=== PATIENT | female | born 1950 | race Caucasian/White ===

== ENCOUNTER 2017-04-08 11:23 | Inpatient (IN) | payer MEDICARE, OTHER ==
[2017-04-08] VITALS (7 sets, daily range): BP systolic 100–103; BP diastolic 54–86; PULSE 121–126; RESP 18–27; TEMP 102.1; Ht 167.6 cm; Wt 75.0 kg
[~2017-04-08] VITALS: Ht 167.6 cm; Wt 75.0 kg
--- NOTE | 2017-04-08 11:56 | ERA ---
ER Documentation Chief Complaint Date/Time DATE: 04/08/17 TIME: 11:53 Chief Complaint MARNIE FROM [facility] C/O BLEEDING FOR TRACHEOSTOMY & RECTAL BLEED. HPI Patient is a 66-year-old female with end-stage renal disease, CHF, chronic respiratory failure on a ventilator with a tracheostomy, anal cancer who is sent from a alf facility with rectal bleeding as well as blood from her tracheostomy site for 1 day. The patient can communicate by shaking her head yes or no, and indicates that she is not currently experiencing any pain, shortness of breath, dizziness or weakness. ROS All systems reviewed and are negative except as per history of present illness. Medications Home Meds Reported Medications Balsam Frazer/[place] Oil (Venelex Ointment) 60 Gm Oint..gm., 1 APPLIC TOP NEEDED, #1 TUB APPLY TO SACROCOCCYX 04/08/17 Ascorbic Acid* (Ascorbic Acid*) 500 Mg/5 Ml Syrup, 500 MG GTB DAILY, #150 ML 04/08/17 Trazodone Hcl* (Trazodone Hcl*) 50 Mg Tablet, 25 MG PO QHS, #30 TAB 04/08/17 Sorbitol* (Sorbitol*) 473 Ml Soln, 30 ML PO DAILY Y for CONSTIPATION, ML 04/08/17 Sodium Chloride* (Sodium Chloride*) 1 Gm Tablet, 1 GM GTB BID, TAB 04/08/17 Simethicone (GAS RELIEF) 80 Mg Tab.chew, 80 MG GTB Q4, TAB.CHEW 04/08/17 Sennosides* (Senna Lax*) 8.6 Mg Tablet, 2 TAB PO BID, TAB 04/08/17 Multivit/Ca Carb/B Cmplx/Fa* (Shayla-Anuradha*) 1 Tab Tab, 1 TAB GTB DAILY, TAB 04/08/17 Quetiapine Fumarate* (Seroquel*) 25 Mg Tablet, 25 MG GTB BID, #60 TAB 04/08/17 Insulin Regular, Human (Humulin R) 100 Unit/1 Ml Vial, 0 IJ Q6, VIAL SLIDING SCALE 71-150 =0 UNITS 151-200 = 2 UNITS 201-250 = 4 UNITS 251 -300 = 6 UNITS 301-350 = 8 UNITS 351-400 = 10 UNITS OVER 400 UNITS GIVE 12 UNITS AND CALL 04/08/17 Lactulose* (Lactulose*) 20 Gm/30 Ml Solution, 20 GM GTB DAILY, ML 04/08/17 Lansoprazole* (Lansoprazole*) 30 Mg Capsule.dr, 30 MG GTB DAILY, CAP 04/08/17 Insulin Detemir (Levemir) 100 Unit/1 Ml Vial, 5 UNIT SC BID, VIAL 04/08/17 Levothyroxine Sodium* (Levoxyl*) 125 Mcg Tablet, 125 MCG GTB BEFORE BREAKFAST, # 30 TAB 04/08/17 Lisinopril* (Lisinopril*) 2.5 Mg Tablet, 2.5 MG GTB BID, #30 TAB 04/08/17 Loratadine* (Loratadine*) 10 Mg Tablet, 10 MG GTB DAILY, #30 TAB 04/08/17 Metoclopramide* (Reglan*) 10 Mg/10 Ml Soln, 5 MG GTB Q8, ML 04/08/17 Metoprolol Tartrate* (Lopressor*) 25 Mg Tab, 25 MG GTB BID, #60 TAB 04/08/17 Hydrocodone/Acetaminophen ([place] 5-325 Tablet) 1 Each Tablet, 1 EACH PEG WOUND CARE, TAB MAY GIVE ONE TABLET PRIOR TO WOUND CARE 04/08/17 Hydrocodone/Acetaminophen ([place] 5-325 Tablet) 1 Each Tablet, 1 EACH GTB Q6 Y for SEVERE PAIN LEVEL 7-10, TAB 04/08/17 Protein Supplement (Promod) 946 Ml Liquid, 30 ML GTB BID 04/08/17 Furosemide* (Furosemide*) 40 Mg Tablet, 40 MG GTB DAILY, TAB 04/08/17 Ipratropium-Albuterol (Ipratropium-Albuterol) 0.5-3 Mg/3 Ml Ampul.neb, 3 ML INHALATION Q2H Y for SHORTNESS OF BREATH, #30 VIAL VIA TRACH 04/08/17 Ipratropium-Albuterol (Ipratropium-Albuterol) 0.5-3 Mg/3 Ml Ampul.neb, 3 ML IH QID Y for WHEEZING AND SOB, #30 VIAL VIA TRACH 04/08/17 Vit E Acetate/Dmc/Znox/Pet,Wh (Critic-Aid Clear Ointment) 71 Gm Oint..gm., 71 GM TP Q8 6/23/17 Calcium Carbonate/Vitamin D3 (OYSTER SHELL 500 MG + VIT D TB) 1 Each Tablet, 1 EACH GTB DAILY, TAB 04/08/17 Atorvastatin Calcium* (Atorvastatin Calcium*) 20 Mg Tablet, 20 MG GTB QHS, #30 TAB 04/08/17 Allergies Allergies: Coded Allergies: Penicillins (Verified Allergy, Unknown, 04/08/17) Sulfa (Sulfonamide Antibiotics) (Verified Allergy, Unknown, 04/08/17) PMhx/Soc Past medical history: Cardiopulmonary arrest, CHF, chronic kidney disease, anal cancer, chronic respiratory failure Past surgical history: Tracheostomy, gastrostomy tube Social history: Lives in alf facility. FmHx Family History: No coronary disease, No diabetes Physical Exam Vitals Vital Signs Date Time Temp Pulse Resp B/P Pulse Ox O2 Delivery O2 Flow Rate FiO2 04/08/17 17:47 101.0 78 19 114/56 100 Mechanical Ventilator 04/08/17 16:46 113 19 100 50 04/08/17 14:51 110 18 100 50 04/08/17 14:45 101.5 64 26 109/62 Mechanical Ventilator 04/08/17 13:07 50 04/08/17 11:40 120 23 100 100 04/08/17 11:39 102.5 120 26 142/78 100 Physical Exam Const: Alert, responds by shaking head to questions, no acute distress Head: Atraumatic Eyes: Normal Conjunctiva, mild pallor, no icterus ENT: Normal External Ears, Nose and Mouth. Moist mucous membranes Neck: Full range of motion..~ No meningismus. Resp: Clear to auscultation bilaterally Cardio: Regular rate and rhythm, no murmurs Abd: Distended, firm, subcutaneous edema to the chest wall Skin: No petechiae or rashes, stage II decubitus ulcer on sacrum without erythema or discharge Ext: No cyanosis, anasarca from the feet to the chest wall. Neur: Awake and alert, not moving any extremities Psych: Unable to assess due to patient's condition Result Diagram: 04/08/17 1230 04/08/17 1230 Results 24 hrs Laboratory Tests Test 04/08/17 11:54 04/08/17 12:30 04/08/17 15:25 04/08/17 17:40 Blood Gas Specimen Source Blood arterial Arterial Blood Date Drawn 04/08/2017 12:42:29 PM Arterial Blood pH (Temp corrected) 7.431 Arterial Blood pCO2 (Temp correct) 33.4mmhg Arterial Blood pO2 (Temp corrected) 429.2mmHG Arterial Blood HCO3 21.7mmol/L Arterial Blood Base Excess -2.0mmol/L Arterial Blood Oxygen Saturation 99.5mmHG Mario Test N/A Arterial Blood Gas Puncture Site LB Arterial Blood Carboxyhemoglobin 0.3% Arterial Blood Methemoglobin 0.5% Blood Gas A-a O2 Differential 250.4mmHg Oxyhemoglobin Percent 98.7% Total Hemoglobin 10.3g/dl Blood Gas Temperature 37.0C Blood Gas Respiration Rate 14.0 Blood Gas Actual Respiration Rate 33 Blood Gas Modality VENT - AC FiO2 100.0% Blood Gas Tidal Volume 500.0mL Blood Gas Low PEEP Setting 5.0cmH2O Blood Gas Notified Whom Jose Blood Gas Notified Time 04/08/2017 12:53:48 PM White Blood Count 20.810^3/ul Red Blood Count 3.1810^6/ul Hemoglobin 9.7g/dl Hematocrit 30.6% Mean Corpuscular Volume 96.2fl Mean Corpuscular Hemoglobin 30.5pg Mean Corpuscular Hemoglobin Concent 31.7g/dl Red Cell Distribution Width 21.1% Platelet Count 31837^3/UL Mean Platelet Volume 10.1fl Neutrophils % 96.0% Lymphocytes % 1.6% Monocytes % 1.6% Eosinophils % 0.0% Basophils % 0.1% Nucleated Red Blood Cells % 0.0/100WBC Neutrophils # 19.910^3/ul Lymphocytes # 0.310^3/ul Monocytes # 0.310^3/ul Eosinophils # 0.010^3/ul Basophils # 0.010^3/ul Nucleated Red Blood Cells # 0.010^3/ul Prothrombin Time 14.2Sec 15.2Sec Prothrombin Time Ratio 1.1 1.2 INR International Normalized Ratio 1.10 1.19 Activated Partial Thromboplast Time 44.6Sec 46.2Sec Sodium Level 134mmol/L Potassium Level 4.1mmol/L Chloride Level 100mmol/L Carbon Dioxide Level 24mmol/L Anion Gap 14 Blood Urea Nitrogen 43mg/dl Creatinine 2.13mg/dl Glucose Level 236mg/dl Calcium Level 8.2mg/dl Total Bilirubin 0.1mg/dl Direct Bilirubin 0.00mg/dl Indirect Bilirubin 0.1mg/dl Aspartate Amino Transf (AST/SGOT) 40IU/L Alanine Aminotransferase (ALT/SGPT) 37IU/L Alkaline Phosphatase 223IU/L Troponin I < 0.012ng/ml B-Type Natriuretic Peptide 08226YJ/ML Total Protein 7.2g/dl Albumin 3.3g/dl Globulin 3.90g/dl Albumin/Globulin Ratio 0.84 Lactic Acid Level 2.3mmol/L Bedside Urine pH (LAB) 5.0 Bedside Urine Protein (LAB) 2+ Bedside Urine Glucose (UA) Negative Bedside Urine Ketones (LAB) Negative Bedside Urine Blood 1+ Bedside Urine Nitrite (LAB) Negative Bedside Urine Leukocyte Esterase (L 2+ Current Medications Medications (Trade) Dose Ordered Sig/Summer Route PRN Reason Start Time Stop Time Status Last Admin Dose Admin Cefepime HCl 50 ml @ 100 mls/hr ONCE STAT IVPB 04/08/17 13:33 04/08/17 14:02 DC 04/08/17 17:09 Vancomycin HCl (Vancocin) 250 ml @ 125 mls/hr ONCE ONCE IVPB 04/08/17 14:00 04/08/17 15:59 DC Lidocaine (Xylocaine 1% (Mpf)) 5 ml ONCE ONCE SC 04/08/17 14:30 04/08/17 14:31 DC Ondansetron HCl (Zofran Inj) 4 mg ER BRIDGE PRN IV NAUSEA AND/OR VOMITING 04/08/17 16:30 04/09/17 16:29 Acetaminophen (Tylenol Tab) 650 mg ER BRIDGE PRN PO MILD PAIN/FEVER 04/08/17 16:30 04/09/17 16:29 04/08/17 17:09 Acetaminophen (Tylenol Liquid) 650 mg STK-MED ONCE .ROUTE 04/08/17 17:01 04/08/17 17:02 DC Procedures/MDM EKG read by me: Time 1238, rate 124 Rhythm: Sinus tachycardia Gaines: Normal Intervals: Normal ST-T waves: T-wave inversion in lateral leads Ectopy: No Q-waves: No Impression: Sinus tachycardia with T-wave inversion MDM: Patient is a 66-year-old female who is chronically vent dependent with tracheostomy and has end-stage renal disease. She has history of anal cancer, status post radiation therapy and presents to the ER with rectal bleeding. She has had previous episodes that are presumed to be related to neovascularization from radiation proctitis. There is no active bleeding in the ER. The patient has no hypotension. In the ER she is found to be febrile to 102.5. There is no evidence of infiltrate on chest x-ray, no meningeal signs, no evidence of soft tissue infection. She makes minimal urine, but has evidence of leukocytes in the urine. CT scan of the abdomen was performed and does not show significant pathology, but does show small ascites. She may require inpatient paracentesis to exclude SBP. Type and screen was sent in case of further drop in the patient's hemoglobin. Blood and urine cultures were sent. Broad- spectrum antibiotics were administered. Fluids were withheld due to evidence of significant volume overload and CHF. Platelets and INR did not require correction. The patient will require GI consultation, further infectious workup , and further dialysis due to signs of volume overload. She will be admitted to telemetry by Dr. Guerrero. Departure Diagnosis: Primary Impression: Sepsis Qualified Code: A41.9 - Sepsis, due to unspecified organism Additional Impressions: UTI (urinary tract infection) Qualified Code: N39.0 - Urinary tract infection without hematuria, site unspecified Anasarca End stage renal disease Rectal bleeding CHF (congestive heart failure) Qualified Code: I50.9 - Chronic congestive heart failure, unspecified congestive heart failure type Condition: SHERRON Méndez MD Apr 08, 2017 11:55
--- NOTE | 2017-04-08 12:40 | RADRPT ---
PROCEDURE: XR Chest. CLINICAL INDICATION: Shortness of breath. TECHNIQUE: Single frontal view. COMPARISON: 03/29/2017. FINDINGS: The tracheostomy tube is in satisfactory position. There is a right internal jugular vein tunneled dialysis catheter with the tip in the upper right atrium in satisfactory position. There are sterna l wires. The heart is enlarged. There is calcification in the aorta consistent with atherosclerosis. Pulmon china edema is worse than seen previously. Left arm PICC line has been removed. There are small bilateral pleural effusions. There is no pneumothorax. IMPRESSION: 1. New dialysis catheter in satisfactory position. 2. Worsening pulmonary edema. 3. Left arm PICC line removed. RPTAT: QQ .Oli Kapoor MD, MD Date Time Electronically viewed and signed by .Oli Kapoor MD, MD on 04/08/2017 12:40 .R/
[2017-04-08 12:43] LABS: ADD SCAN DIFF NO
[2017-04-08] MEDS ORDERED: ATOR20TA38 GTB (12:51)
[2017-04-08 12:52] LABS: ABNORMAL IP MESSAGE 1; BASOPHILS % 0.1 % (0.0-2.0); HEMATOCRIT 30.6 % (37.0-47.0); HEMOGLOBIN 9.7 g/dl (12.0-16.0); LYMPHOCYTES # 0.3 10^3/ul (0.8-2.9); LYMPHOCYTES % 1.6 % (15.0-51.0); MEAN CORPUSCULAR HEMOGLOBIN 30.5 pg (29.0-33.0); MEAN CORPUSCULAR HGB CONC 31.7 g/dl (32.0-37.0); MEAN CORPUSCULAR VOLUME 96.2 fl (82.0-101.0); MEAN PLATELET VOLUME 10.1 fl (7.4-10.4); MONOCYTE # 0.3 10^3/ul (0.3-0.9); MONOCYTES % 1.6 % (0.0-11.0); NEUTROPHIL # 19.9 10^3/ul (1.6-7.5); PLATELET COUNT 131 10^3/UL (140-415); RED BLOOD COUNT 3.18 10^6/ul (4.20-5.40); RED CELL DISTRIBUTION WIDTH 21.1 % (11.5-14.5); WHITE BLOOD COUNT 20.8 10^3/ul (4.8-10.8)
[2017-04-08] MEDS ORDERED: CALC-277 GTB (12:53)
[2017-04-08 12:54] LABS: AADO2 Arterial 250.4 mmHg (7.0-24.0); Arterial COHb 0.3 % (0.0-3.0); Arterial Fraction of Oxyhgb 98.7 % (93.0-99.0); Arterial HCO3 21.7 mmol/L (22.0-26.0); Arterial MetHb 0.5 % (0.0-1.5); Arterial Total Hemglobin 10.3 g/dl (12.0-18.0); MODE VENT - AC
[2017-04-08] MEDS ORDERED: [UNRECOGNIZED DRUG - CODE] TP (12:56)
[2017-04-08] MEDS ORDERED: IPRA3AMP IH (12:59)
[2017-04-08] MEDS ORDERED: FURO40TA4 GTB (13:00)
[2017-04-08] MEDS ORDERED: IPRA3AMP INHALATION (13:00)
[2017-04-08] MEDS ORDERED: PROT946L GTB (13:01)
[2017-04-08] MEDS ORDERED: HYDR-906 GTB (13:02)
[2017-04-08] MEDS ORDERED: HYDR-906 PEG (13:04)
[2017-04-08] MEDS ORDERED: METO-448 GTB (13:04)
[2017-04-08] MEDS ORDERED: UDREG GTB (13:05)
[2017-04-08] MEDS ORDERED: LISI2.5T59 GTB (13:06)
[2017-04-08] MEDS ORDERED: LORA10TA3 GTB (13:06)
[2017-04-08] MEDS ORDERED: LEVEM SC (13:07)
[2017-04-08] MEDS ORDERED: LEVO125T71 GTB (13:07)
[2017-04-08 13:08] LABS: INR 1.1; PROTIME 14.2 Sec (12.2-14.2); PT RATIO 1.1
[2017-04-08] MEDS ORDERED: LANS30CA GTB (13:08)
[2017-04-08 13:09] LABS: PARTIAL THROMBOPLASTIN TIME 44.6 Sec (25.0-35.0)
[2017-04-08] MEDS ORDERED: LACT20SO2 GTB (13:09)
[2017-04-08 13:12] LABS: ALANINE AMINOTRANSFERASE 37 IU/L (13-69); ALBUMIN 3.3 g/dl (3.3-4.9); ALBUMIN/GLOBULIN RATIO 0.84; ALKALINE PHOSPHATASE 223 IU/L (42-121); ANION GAP 14 (8-16); ASPARTATE AMINO TRANSFERASE 40 IU/L (15-46); BILIRUBIN,INDIRECT 0.1 mg/dl (0-1.1); BILIRUBIN,TOTAL 0.1 mg/dl (0.2-1.3); BLOOD UREA NITROGEN 43 mg/dl (7-20); CALCIUM 8.2 mg/dl (8.4-10.2); CARBON DIOXIDE 24 mmol/L (21-31); CHLORIDE 100 mmol/L (97-110); CREATININE 2.13 mg/dl (0.44-1.00); GLUCOSE 236 mg/dl (70-220); POTASSIUM 4.1 mmol/L (3.5-5.1); SODIUM 134 mmol/L (135-144); TOTAL PROTEIN 7.2 g/dl (6.1-8.1)
[2017-04-08] MEDS ORDERED: INSU100V3 IJ (13:12)
[2017-04-08] MEDS ORDERED: QUET25TA26 GTB (13:13)
[2017-04-08] MEDS ORDERED: NEPH GTB (13:27)
[2017-04-08] MEDS ORDERED: SIME80TA53 GTB (13:28)
[2017-04-08] MEDS ORDERED: SENN-53 PO (13:28)
[2017-04-08] MEDS ORDERED: SODI1TAB2 GTB (13:30)
[2017-04-08] MEDS ORDERED: [UNRECOGNIZED DRUG - OTHER] PO (13:31)
[2017-04-08] MEDS ORDERED: TRAZ50TA18 PO (13:32)
[2017-04-08] MEDS ORDERED: ASCO500S2 GTB (13:32)
[2017-04-08] MEDS ORDERED: CEFEPIME 2GM/50 ML (PMX) 50 ML IVPB STA (13:33)
[2017-04-08] MEDS ORDERED: BALS60OI TOP (13:34)
[2017-04-08 13:50] LABS: TROPONIN-I < 0.012 ng/ml (0.00-0.12)
[2017-04-08 13:51] LABS: B-TYPE NATRIURETIC PEPTIDE 54200 PG/ML (0-125)
[2017-04-08] MEDS ORDERED: VANCOMYCIN 1 GM (PMX) 250 ML IVPB ONE (14:00)
[2017-04-08] MEDS ORDERED: LIDOCAINE 1% (MPF) 5 ML VIAL SC ONE (14:30)
--- NOTE | 2017-04-08 14:38 | RADRPT ---
PROCEDURE: CT Abdomen and Pelvis without contrast. CLINICAL INDICATION: Abdominal distension. Rectal cancer. TECHNIQUE: CT scan of the abdomen and pelvis without contrast was performed on a multi-slice CT sc [facility] without intravenous contrast. Coronal and sagittal reformatted images were obtained from the axial source images. Images were reviewed on a high-resolution PACS workstation. One or more of the following does reduction techniques were used: Automated exposure control; adjustment of the mA an d/or kV according to patient size; use of the aorta of reconstruction technique. The total exam CTD I equals 21.76 mGy and the total exam DLP equals 1256.8 mGy-cm. COMPARISON: None available. FINDINGS: There are moderate bilateral pleural effusions with adjacent atelectasis. Heart size is within ameya l limits. Severe coronary artery calcifications are present. A gastrostomy tube is in place. There are questionable splenic granulomata which may be related to extensive small vessel calcificat ion. The liver, spleen, and pancreas are otherwise normal given the limitations of a noncontrast CT examination with significant motion artifact. The gallbladder is mildly distended. The adrenal glands are normal. The kidneys without renal calculus or hydronephrosis. Extensive int rarenal atherosclerotic calcification somewhat limit evaluation for small calcification The aorta is of normal caliber. Atherosclerotic calcifications are present There is no retroperiton eal lymph node enlargment. There is no evidence of large or small bowel obstruction there is mild retained colonic stool. Ther e are scattered colonic diverticula. There is no definitive evidence of diverticulitis.. There is mild abdominal ascites. A normal appendix is not clearly identified, however, there is no secondar y evidence of acute appendicitis. No inflammatory changes are seen. The uterus is present No enlarged pelvic sidewall lymph nodes are seen. The bladder is decompressed and collapsed. There is small to moderate pelvic free fluid. The inguinal regions are unremarkabl e. There is extensive and severe increased soft tissue density in the subcutaneous fat consistent with severe subcutaneous edema / anasarca. The patient is status post posterior laminectomy and interbody fusion at L5-S1. Hardware appears intact there are potential destructive changes of the L4-5 disk space which may be chronic, however there is also apparent posterior retropulsion of artificial inte rbody disk. The remainder of the bones are intact. IMPRESSION: 1. Moderate bilateral pleural effusions, mild abdominopelvic ascites, and anasarca are suggestive o f fluid overload. 2. Atherosclerotic vascular disease including severe small vessel/coronary artery calcifications. 3. Diverticulosis without definitive evidence of diverticulitis. 4. Status post posterior laminectomy and interbody fusion at L4-L5. There is irregularity and pote ntial destructive change at the L4-5 disk space with apparent posterior retropulsion of portion of a rtificial disk. Findings are concerning for hardware failure or malfunction. RPTAT: KK .Diego Garcia MD, MD Date Time Electronically viewed and signed by .Diego Garcia MD, MD on 04/08/2017 14:38 .B/
[2017-04-08 16:18] LABS: INR 1.19; PROTIME 15.2 Sec (12.2-14.2); PT RATIO 1.2
[2017-04-08 16:19] LABS: PARTIAL THROMBOPLASTIN TIME 46.2 Sec (25.0-35.0)
[2017-04-08] MEDS ORDERED: ONDANSETRON 4 MG INJ IV PRN (16:30)
[2017-04-08] MEDS ORDERED: ACETAMINOPHEN 325 MG TAB PO PRN ×2 (16:30→19:30)
[2017-04-08] MEDS ORDERED: ACETAMINOPHEN 650MG/20.3ML CUP ONE (17:01)
[2017-04-08 17:37] LABS: URINE BLOOD (Dip) POC 1+ (NEGATIVE)
[2017-04-08] MEDS ORDERED: ALBUTEROL/IPRATROPIUM (NEB) 3 ML AMP NEB PRN ×2 (19:30)
[2017-04-08] MEDS ORDERED: VANCOMYCIN IV PER PHARMACY XX SCH (19:30)
[2017-04-08] MEDS ORDERED: GLUCOSE GEL 15 GRAM TUBE PO PRN ×2 (20:00)
[2017-04-08] MEDS ORDERED: DEXTROSE 50% 50 ML SYRINGE IV PRN (20:00)
[2017-04-08] MEDS ORDERED: GLUCOSE GEL 15 GRAM TUBE BUCCAL PRN (20:00)
[2017-04-08] MEDS ORDERED: GLUCAGON 1 MG INJ IM PRN (20:00)
--- NOTE | 2017-04-08 20:38 | HP ---
DATE OF ADMISSION: 04/08/2017 REASON FOR ADMISSION: Anemia, weakness and shortness of breath. CHIEF COMPLAINT AND HISTORY OF PRESENT ILLNESS: History has been obtained from medical record as amina mobley could not provide any useful history. The patient's family is currently not available. Maty guo is a 66-year-old female with a history of coronary artery disease, status post CABG, chronic conge stive heart failure and history of nonsustained ventricular tachycardia who was admitted to an [facility] facility several weeks ago. During endoscopy, she had a pulseless electrical activity arrest. S ubsequently, she could not be weaned off the ventilator and underwent tracheostomy and G-tube placem ent. The patient at that time was treated for recurrent Staphylococcus aureus bacteremia. Patient w as weaned down to ____ and was transferred to [facility] for ongoing care. From [facility], she was transferred to [facility] respiratory unit for further care. The maty guo was noted to have bleeding from the tracheostomy site as well as a rectal bleed. Patient does hav e history of anal cancer. Details, however, not available regarding treatment. Patient was transfer red to [facility] ER via 911. Patient in the ER was noted to have a fever of 101. She was tachycardic with heart rate up to 120. Patient's white count was noted to be 20.8. UA had negativ e nitrite, however, positive leukocyte esterase. Chest x-ray revealed worsening pulmonary edema. CT of the abdomen and pelvis revealed moderate bila teral pleural effusions, mild abdominal pelvic ascites and anasarca, history of fluid overload, athe rosclerotic disease including severe small vessel/coronary artery calcification. The patient also ap parently has posterior laminectomy and interbody fusion at L4-L5, there was noted to be irregularity and potential destructive changes at L4-L5 disk space with apparent posterior retropulsion of ____ disk. Findings were concerning for ____ failure and malfunction. The patient is being admitted for further evaluation and management. REVIEW OF SYSTEMS: Could not obtain as patient could not provide any useful history. The patient oc casionally nods her head but responses are not consistent. PAST MEDICAL HISTORY: As stated above. PAST SURGICAL HISTORY: Status post CABG and lumbar spinal surgery as listed above, history of esoph ageal stricture, status post dilatation, tracheostomy and G-tube placement, dialysis catheter placem ent. SOCIAL HISTORY: Could not be obtained. FAMILY HISTORY: Could not be obtained. MEDICATIONS: Prior to admission, the patient was on: 1. Lipitor. 2. Os-Lencho. 3. DuoNeb. 4. Lasix. 5. Sliding scale insulin. 6. Lactulose. 7. Prevacid. 8. Levemir. 9. Levothyroxine. 10. Lisinopril. 11. Loratadine. 12. Metoclopramide. 13. Metoprolol. 14. Cades. 15. Quetiapine. 16. Trazodone. 17. The patient also has Venalax treatment for ____ on old sacrococcygeal scars. PHYSICAL EXAMINATION: GENERAL: The patient appeared to be lethargic, keeps her eyes closed, occasionally nods to verbal q uestions. VITAL SIGNS: Temperature 102.1, pulse 103, respirations 22, blood pressure 103/69, O2 saturation 10 0% on mechanical vent. The patient is on FIO2 of 50%. HEENT: No eye discharge or redness. Extraocular movements could not be tested. Nose and ears norm al. NECK: Tracheostomy in place. No mass. CHEST: Revealed diminished air entry at bases with coarse breath sounds bilaterally. CARDIOVASCULAR: Sinus S1, S2 normal. Sinus tachycardia. ABDOMEN: Soft, distended, significant abdominal wall edema. EXTREMITIES: All extremities grossly edematous. No clubbing, cyanosis. NEUROLOGIC: The patient is lethargic and no useful communication possible. LABORATORY DATA: Sodium 134, potassium 4.1, BUN 43, creatinine 2.1, glucose 236. Lactic acid 2.3. WBC 20.8, hemoglobin 9.7, platelets 131. The patient does appear to have chronic thrombocytopenia on 04/03/2017 patient's platelet count was 85,000. IMPRESSION: 1. Sepsis. Source unknown. The patient will undergo septic workup including urine culture, blood culture and sputum culture. We will empirically start her on IV vancomycin and cefepime. Dr. Salvatore mills will be called from an infectious disease standpoint. The patient due to fluid overload is not a candidate of IV fluid bolus. Patient also has end stage disease and apparently is in congestive h eart failure. The patient's echocardiogram done in February 2017 revealed EF of only 40%. 2. Coronary artery disease with systolic heart failure. Continue hemodialysis to remove fluids. 3. Coronary artery disease, status post coronary artery bypass graft. No active issue. 4. Diabetes. We will put patient on sliding scale insulin. 5. Respiratory failure. Continue vent support. Will obtain a pulmonary consult from Shannanluis antonio. 6. Hypothyroidism. Will continue Synthroid. 7. Anal cancer with recent rectal bleed. Will continue to monitor H and H. No active intervention at this time due to patient's multiple comorbidities. 8. History of pulseless electrical activity with possible anoxic encephalopathy. Will continue to monitor. 9. History of GI bleed. Will continue proton pump inhibitor. 10. Dyslipidemia. Continue statins. Will discuss goals of care with the patient's family when available. The patient is critically ill. We will continue to follow. Further recommendation depends on hospital course and recommendations from consultants. Dictated By: IVAN ARROYO/JUAN R Conf#: [id number] DID#: [id number]
--- NOTE | 2017-04-08 20:51 | CONS ---
Date/Time of Note Date/Time of Note DATE: 04/08/17 TIME: 20:34 Assessment/Plan Assessment/Plan Chief Complaint/Hosp Course - severe sepsis, possible etiologies include HCAP, UTI, early diverticulitis, SBP (mild ascites) - rectal bleeding at [facility] prior to admission, possibly due to radiation proctitis. So far no bleeding after arriva' - h/o anal CA s/p radiation - diverticulosis without diverticulitis on CT - mild ascites - possible HCAP with moderate pleural effusion - bloody secretion via trach, possible due to CHF - pulm edema and volume overload - ESRD on HD, via permacath on R chest wall. 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 potential destructive change at the L4-5 disk space with apparent posterior retropulsion of portion of artificial disk (seen on CT) management d/w Pt, her RN and RT Problems: Consultation Date/Type/Reason Admit Date/Time Apr 08, 2017 at 16:19 Date of Consultation: Apr 08, 2017 Type of Consultation: ID Reason for Consultation severe sepsis Referring Provider: IVAN GUERRERO MD Hx of Present Illness this is a [address] [facility] resident with ESRD on HD three times a week, s/p laminectomy, anal CA s/p XRT, who is vent- and G tube-dependent. Pt was transferred to ER today due to rectal bleeding, which is thought to be due to radiation proctitis. At ER, Pt was febrile at 102.1F, WBC=20.8 (WBC level was within normal limits on 04/03/2017) and tachycardic. CT showed moderate pleural effusion, mild ascites, diverticulosis without diverticulitis, irregularity and potential destructive change at the L4-5 disk space with posterior retropulsion of portion of artificial disk. RT suctioned bloody secretion via trach. Pt's minimally responsive; Pt denies pain. Dr. Guerrero requested ID consultation on this Pt. Subjective hx not possible: pt non-verbal, other (Pt denies pain) Respiratory: No shortness of breath Past Medical History Medical History: coronary artery disease, renal disease, other (anal CA s/p radiation, vent and G tube dependent) Past Surgical History Past Surgical Hx: other (laminectomy) Social History Smoking Status: Unknown if ever smoked Exam/Review of Systems Vital Signs Vitals Vital Signs Date Time Temp Pulse Resp B/P Pulse Ox O2 Delivery O2 Flow Rate FiO2 04/08/17 20:20 98.6 121 23 100/54 98 04/08/17 19:52 50 04/08/17 18:43 Mechanical Ventilator Exam Constitutional: frail, non-verbal Psych: confusion, no complaints Head: atraumatic, normocephalic Eyes: nl conjunctiva, nl lids ENMT: mucosa pink and moist, nl external ears & nose, nl nasal mucosa & septum Neck: other (trach, bloody resp secretion) Respiratory: crackles/rales Cardiovascular: nl pulses, regular rate and rhythm Gastrointestinal: non-tender, other (GT in place), soft Musculoskeletal: No swelling Extremities: No edema Neurological: lethargic Skin: ecchymosis, laceration (superficial skin tears on b/l UE) Results Result Diagram: 04/08/17 1230 04/08/17 1230 Results 24 hrs Laboratory Tests Test 04/08/17 11:54 04/08/17 12:30 04/08/17 15:25 04/08/17 17:40 Blood Gas Specimen Source Blood arterial Arterial Blood Date Drawn 04/08/2017 12:42:29 PM Arterial Blood pH (Temp corrected) 7.431 Arterial Blood pCO2 (Temp correct) 33.4 L Arterial Blood pO2 (Temp corrected) 429.2 H Arterial Blood HCO3 21.7 L Arterial Blood Base Excess -2.0 Arterial Blood Oxygen Saturation 99.5 H Mario Test N/A Arterial Blood Gas Puncture Site LB Arterial Blood Carboxyhemoglobin 0.3 Arterial Blood Methemoglobin 0.5 Blood Gas A-a O2 Differential 250.4 H Oxyhemoglobin Percent 98.7 Total Hemoglobin 10.3 L Blood Gas Temperature 37.0 Blood Gas Respiration Rate 14.0 Blood Gas Actual Respiration Rate 33 Blood Gas Modality VENT - AC FiO2 100.0 Blood Gas Tidal Volume 500.0 Blood Gas Low PEEP Setting 5.0 Blood Gas Notified Whom M.D. Blood Gas Notified Time 04/08/2017 12:53:48 PM White Blood Count 20.8 #H Red Blood Count 3.18 L Hemoglobin 9.7 L Hematocrit 30.6 L Mean Corpuscular Volume 96.2 Mean Corpuscular Hemoglobin 30.5 Mean Corpuscular Hemoglobin Concent 31.7 L Red Cell Distribution Width 21.1 H Platelet Count 131 #L Mean Platelet Volume 10.1 Neutrophils % 96.0 H Lymphocytes % 1.6 L Monocytes % 1.6 Eosinophils % 0.0 Basophils % 0.1 Nucleated Red Blood Cells % 0.0 Neutrophils # 19.9 H Lymphocytes # 0.3 L Monocytes # 0.3 Eosinophils # 0.0 Basophils # 0.0 Nucleated Red Blood Cells # 0.0 Prothrombin Time 14.2 15.2 H Prothrombin Time Ratio 1.1 1.2 INR International Normalized Ratio 1.10 1.19 Activated Partial Thromboplast Time 44.6 H 46.2 H Sodium Level 134 L Potassium Level 4.1 Chloride Level 100 Carbon Dioxide Level 24 Anion Gap 14 Blood Urea Nitrogen 43 H Creatinine 2.13 H Glucose Level 236 H Calcium Level 8.2 L Total Bilirubin 0.1 L Direct Bilirubin 0.00 Indirect Bilirubin 0.1 Aspartate Amino Transf (AST/SGOT) 40 Alanine Aminotransferase (ALT/SGPT) 37 Alkaline Phosphatase 223 H Troponin I < 0.012 B-Type Natriuretic Peptide 59914 H Total Protein 7.2 Albumin 3.3 Globulin 3.90 H Albumin/Globulin Ratio 0.84 Lactic Acid Level 2.3 H Bedside Urine pH (LAB) 5.0 Bedside Urine Protein (LAB) 2+ H Bedside Urine Glucose (UA) Negative Bedside Urine Ketones (LAB) Negative Bedside Urine Blood 1+ H Bedside Urine Nitrite (LAB) Negative Bedside Urine Leukocyte Esterase (L 2+ H Medications Medications Current Medications Atorvastatin Calcium (Lipitor) 20 mg QHS GTB ; Start 04/08/17 at 21:00 Acetaminophen/ Hydrocodone Bitart ([place] (5/325)) 1 tab Q6H PRN GTB SEVERE PAIN LEVEL 7-10; Start 04/08/17 at 19:30 Albuterol/ Ipratropium (Duoneb) 3 ml QID PRN NEB WHEEZING AND SOB; Start at 19:30; Status UNV Albuterol/ Ipratropium (Duoneb) 3 ml Q2H PRN NEB SHORTNESS OF BREATH; Start at 19:30; Status UNV Lactulose (Enulose) 20 gm DAILY GTB ; Start 04/09/17 at 09:00 Lansoprazole (Prevacid) 30 mg DAILY GTB ; Start 04/08/17 at 19:30; Status UNV Lisinopril (Zestril) 2.5 mg BID GTB ; Start 04/08/17 at 21:00 Metoclopramide HCl (Reglan Liq) 5 mg Q8 GTB ; Start 04/08/17 at 22:00; Status UNV Metoprolol Tartrate (Lopressor) 25 mg BID GTB ; Start 04/08/17 at 21:00 Multivit/Ca Carb/ B Cmplx/FA/Prenat (Shayla-Anuradha) 1 tab DAILY GTB ; Start at 09:00 Quetiapine Fumarate (Seroquel) 25 mg BID GTB ; Start 04/08/17 at 21:00 Senna (Senokot) 2 tab BID PO ; Start 04/08/17 at 21:00 Trazodone HCl (Desyrel) 25 mg QHS PO ; Start 04/08/17 at 21:00; Status UNV Miscellaneous Information 5 unit BID SC ; Start 04/08/17 at 21:00; Status UNV Miscellaneous Information 71 gm Q8 TP ; Start 04/08/17 at 22:00; Status UNV Acetaminophen (Tylenol Tab) 650 mg Q4H PRN PO PAIN AND OR ELEVATED TEMP; Start 04/08/17 at 19:30 Diagnostic Test (Pha) (Accu-Chek) 1 ea 02 XX ; Start 04/09/17 at 02:00 Morphine Sulfate (morphine) 2 mg Q4H PRN IV PAIN LEVEL 8-10; Start 04/08/17 at 19:30 Miscellaneous Information 1 ea NOTE XX ; Start 04/08/17 at 20:00 Glucose (Glutose) 15 gm Q15M PRN PO DECREASED GLUCOSE; Start 04/08/17 at 20:00 Glucose (Glutose) 22.5 gm Q15M PRN PO DECREASED GLUCOSE; Start 04/08/17 at 20: 00 Dextrose (D50w Syringe) 25 ml Q15M PRN IV DECREASED GLUCOSE; Start 04/08/17 at 20:00 Dextrose (D50w Syringe) 50 ml Q15M PRN IV DECREASED GLUCOSE; Start 04/08/17 at 20:00 Glucagon (Glucagen) 1 mg Q15M PRN IM DECREASED GLUCOSE; Start 04/08/17 at 20:00 Glucose 15 gm 15 gm Q15M PRN BUCCAL DECREASED GLUCOSE; Start 04/08/17 at 20:00 Meropenem (Merrem 500 Mg/ 100 ml (Pmx)) 100 ml @ 200 mls/hr Q12 IVPB ; Start at 21:00; Status UNV DOLORES SIERRA M.D. Apr 08, 2017 20:44
[2017-04-08] MEDS ORDERED: INSULIN ASPART [NOVOLOG] 3 ML PEN SC SCH (21:00)
[2017-04-08] MEDS: SENNA TAB PO SCH (21:00)
[2017-04-08] MEDS: BALSAM PERU/CASTOR OIL 60 GM TUBE TOP SCH (21:00)
[2017-04-08] MEDS: LISINOPRIL 5 MG TAB GTB SCH (21:00)
[2017-04-08] MEDS ORDERED: CEFEPIME 1GM/50 ML (PMX) 50 ML IVPB SCH (21:00)
[2017-04-08] MEDS ORDERED: NON-FORMULARY/PATIENT OWN MED (Protein Supplement (Promod) 30 ML) GTB SCH (21:00)
[2017-04-08] MEDS: ATORVASTATIN 20 MG TAB GTB SCH (21:29)
[2017-04-08] MEDS: traZODone 50 MG TAB PO SCH (21:29)
[2017-04-08] MEDS: METOCLOPRAMIDE (1 MG/ML) 10 ML CUP GTB SCH (21:29)
[2017-04-08] MEDS: QUETIAPINE 25 MG TAB GTB SCH (21:29)
[2017-04-08] MEDS: METOPROLOL 25 MG TAB GTB SCH (21:30)
[2017-04-08] MEDS: MEROPENEM 500 MG/100 ML (PMX) 100 ML IVPB SCH (21:39)
[2017-04-08] MEDS: INSULIN DETEMIR [LEVEMIR] 3ML CART SC SCH (21:41)
[2017-04-08] MEDS ORDERED: [UNRECOGNIZED DRUG - MIXTURE] TP SCH (22:00)
[2017-04-08] MEDS ORDERED: VANCOMYCIN 1 GM in NS 250 ML IVPB SCH (23:30)
[2017-04-09] VITALS (92 sets, daily range): BP systolic 72–143; BP diastolic 16–91; PULSE 83–108; RESP 6–27
[2017-04-09] MEDS: ACCU-CHEK XX SCH (02:00)
[2017-04-09] MEDS ORDERED: SOD CHLORIDE 0.9% 500 ML IV ONE (03:30)
[2017-04-09] MEDS ORDERED: NORepinephrine 8MG/250 ML (PMX 250 ML ONE (03:43)
[2017-04-09] MEDS ORDERED: NORepinephrine 8MG/250 ML (PMX 250 ML IV SCH (04:30)
[2017-04-09 05:09] LABS: ADD SCAN DIFF NO
[2017-04-09 05:58] LABS: CALCIUM 7.5 mg/dl (8.4-10.2); CREATININE 2.22 mg/dl (0.44-1.00); POTASSIUM 4.2 mmol/L (3.5-5.1)
[2017-04-09] MEDS ORDERED: PIPER-TAZO 3.375 GM IV (PMX) 100 ML IVPB SCH (06:00)
[2017-04-09] MEDS: METOCLOPRAMIDE (1 MG/ML) 10 ML CUP GTB SCH ×3 (06:50→21:43)
[2017-04-09] MEDS: LANSOPRAZOLE 30 MG CAP GTB SCH (06:50)
[2017-04-09] MEDS: LEVOFLOXACIN 250MG/D5W (PMX) 50 ML IVPB SCH (06:50)
[2017-04-09] MEDS ORDERED: POTASSIUM CHLORIDE 20 MEQ POWDER FOR ORAL SOLN PO ONE (08:30)
[2017-04-09] MEDS: LEVOTHYROXINE 125 MCG TAB GTB SCH (08:30)
[2017-04-09] MEDS: ALBUMIN HUMAN 25% 100 ML IV SCH ×2 (08:33→16:31)
--- NOTE | 2017-04-09 08:34 | CONS ---
DATE OF ADMISSION: 04/08/2017 DATE OF CONSULTATION: 04/09/2017 TYPE OF CONSULTATION: Nephrology. REASON FOR CONSULTATION: End-stage renal disease. PHYSICIAN REQUESTING CONSULT: Dr. Guerrero HISTORY OF PRESENT ILLNESS: This is a 66-year-old female with a past medical history of end-stage r enal disease, history of CHF, history of ventilator-dependent respiratory failure, history of dyspha sobia, status post PEG, history of anal cancer, who presents to [facility], due to bleeding around the trach site and rectal bleeding. T he patient upon arrival to the emergency room was noted to be hypotensive, with systolic pressures i n the 70s. The patient was diagnosed with septic shock, presumably from a possible urinary tract in fection or pneumonia. The patient was placed on broad spectrum antibiotics, IV pressors, and transf erred to the intensive care unit for further evaluation. Upon my evaluation of the patient at this time she is currently critical, on pressor support. The patient is not able to provide any history. There have been no reports of hemoptysis, hematemesis or hematochezia. PAST MEDICAL HISTORY: As stated above, a history of end-stage renal disease, history of ventilator- dependent respiratory failure, history of coronary artery disease, history of anal cancer. PAST SURGICAL HISTORY: Status post trach, status post PEG, status post PermCath placement. FAMILY HISTORY: Noncontributory. MEDICATIONS: The patient's medications have been reviewed. FAMILY HISTORY: Unable to be obtained. SOCIAL HISTORY: Resides at a skilled nurse facility. REVIEW OF SYSTEMS: Unable to do adequate review of systems as the patient is obtunded. Pertinent p ositives obtained by reviewing the medical records, speaking to hospital staff, stated in the HPI, o therwise negative. PHYSICAL EXAMINATION: VITAL SIGNS: Blood pressure is 198/54, respirations 17, pulse 84, temperature 98.6. HEENT: Head is normocephalic. Pupils are reactive to light. NECK: Shows a trach. HEART: Regular rate. LUNGS: Show diminished breath sounds at the base. ABDOMEN: Soft, nontender to palpation. No rebound or guarding. EXTREMITIES: Negative for clubbing or cyanosis. Positive edema. Diffuse anasarca. DERMATOLOGIC: No rashes. MUSCULOSKELETAL: Have no joint effusion. NEUROLOGIC: Limited exam, as the patient is obtunded. LABORATORY DATA: Shows sodium 133, potassium 4.2, chloride 103, BUN 51, creatinine 2.2. Lactic aci d 3.0. White count 20.8, hemoglobin 9.7, hematocrit 30.6, platelet count 131. The patient's ABG wa s reviewed. IMAGING STUDIES: CT scan of the abdomen and pelvis shows moderate bilateral effusions, ascites, humphrey sarca, diverticulosis. ASSESSMENT AND PLAN: This is a 66-year-old female who presents with: 1. End-stage renal disease. The patient is on dialysis Tuesday, Tuesday, Tuesday. The patient's a ccess is a PermCath. Plan is for hemodialysis today for solute clearance and volume removal, as the patient is grossly volume overloaded. Will attempt to ultrafiltrate 2 to 3 liters if the patient r emains hemodynamically stable. Will anticipate daily dialysis for solute clearance and volume remova l. Will monitor closely. 2. Anemia. Will monitor hemoglobin and hematocrit levels. Will give Epogen if needed. 3. Mineral bone disorder. Will monitor calcium and phosphorus levels. 4. Hyponatremia secondary to end-stage renal disease. The patient will be dialyzed on a 140 sodium bath. 5. Septic shock. Underlying source is unclear, possible UTI, possible pneumonia. The patient is o n broad spectrum antibiotics, on pressor support. Will continue. Follow up with infectious disease for further recommendations. 6. Ventilator-dependent respiratory failure. Vent settings have been reviewed. ABG has been revie tue. Continue to monitor. Follow up with pulmonary. 7. Dysphagia. Status post PEG. Continue tube feeding. 8. History of coronary artery disease, status post coronary artery bypass graft. Continue medical management. 9. Diabetes. Continue Accu-Cheks and insulin sliding scale. 10. Hypothyroidism. Continue Synthroid. 11. Anal cancer with rectal bleeding. Will continue to monitor hemoglobin and hematocrit levels. Follow up with primary team. Consider a GI evaluation. 12. Acute on chronic encephalopathy. Etiology is likely toxic encephalopathy, possible anoxic inju ry. Will continue to monitor. 13. Volume overload secondary to end-stage renal disease and CHF. As stated above, will continue u ltrafiltration. Thank you, Dr. Guerrero, for this interesting consult. It will be a pleasure to follow up the patie nt with you throughout the hospital course. Dictated By: ANJELICA BE/JUAN R Conf#: [id number] DID#: [id number]
[2017-04-09] MEDS: LACTULOSE 30ML CUP GTB SCH (09:00)
[2017-04-09] MEDS: METOPROLOL 25 MG TAB GTB SCH ×2 (09:00→21:00)
[2017-04-09] MEDS: LISINOPRIL 5 MG TAB GTB SCH ×2 (09:00→21:00)
[2017-04-09] MEDS: SENNA TAB PO SCH ×2 (09:00→21:00)
[2017-04-09 09:18] LABS: ADD UMIC YES; UR ASCORBIC ACID NEGATIVE (NEGATIVE); UR BILIRUBIN (Dip) NEGATIVE (NEGATIVE); UR BLOOD (Dip) 3+ mg/dL (NEGATIVE); UR CLARITY CLEAR (CLEAR); UR COLOR STRAW (YELLOW); UR GLUCOSE (Dip) NEGATIVE (NEGATIVE); UR KETONES (Dip) NEGATIVE (NEGATIVE); UR LEUKOCYTE ESTERASE (Dip) TRACE Leu/ul (NEGATIVE); UR NITRITE (Dip) NEGATIVE (NEGATIVE); UR RBC 1 /HPF (0-5); UR SPECIFIC GRAVITY (Dip) 1.005 (1.003-1.030); UR TOTAL PROTEIN (Dip) 2+ mg/dl (NEGATIVE); UR UROBILINOGEN (Dip) NEGATIVE (NEGATIVE)
[2017-04-09 09:26] LABS: UR BACTERIA FEW /HPF (NONE SEEN)
--- NOTE | 2017-04-09 10:12 | CONS ---
Date/Time of Note Date/Time of Note DATE: 04/09/17 TIME: 10:06 Assessment/Plan Assessment/Plan Additional Assessment/Plan Chest x-ray was reviewed from yesterday which is showing bilateral pulmonary edema. Sternal wires are identified. Tracheostomy is in place. Ventilator setting; AC of 14, tidal volume 500, PEEP of 5, 40% FiO2. Patient currently on Levophed at 2 mics per minute. Assessment recommendations; 1. Patient admitted with severe sepsis source is unclear. Possibly bilateral pneumonia. However findings are difficult to make out on account of superimposed pulmonary edema. 2. Multiple other comorbidities including CHF, renal failure, hypertension, hypothyroidism, and chronic respiratory failure. Continue current supportive care. Patient is on appropriate antibiotic regimen. Consultation Date/Type/Reason Admit Date/Time Apr 08, 2017 at 16:19 Date of Consultation: Apr 09, 2017 Type of Consultation: Pulmonary/critical care Reason for Consultation Pulmonary consultation requested for evaluation of chronic respiratory failure and sepsis. History of presenting any; patient is a 66-year-old white lady who was admitted to the hospital after she was sent over from long term with complaints of fever and shortness of breath. Upon evaluation further workup was done which revealed severe leukocytosis patient also has had a chest x-ray done which is showing pulmonary edema. However it is difficult to rule out superimposed pneumonia. By the time I saw the patient, the patient is completely awake alert on ventilator via tracheostomy currently in no distress. Past medical history; 1. Patient with a recent history of tracheostomy due to respiratory failure after undergoing outpatient evaluation for apparent EGD. 2. CHF. 3. Chronic renal failure. 4. Prior history of CABG. 5. Hypothyroidism. 6. Hypertension. Medications; reviewed. Allergies; penicillin and sulfa drugs. Social history; patient never smoked. Family history; not available. Occupational history; not available. Review of systems; limited review of systems could be obtained. Patient denies any headache, chest pain, shortness of breath, abdominal pain, nausea vomiting. General exam; elderly woman, awake alert currently in no distress. On ventilator via tracheostomy. Respiratory: No shortness of breath Psychological: confusion, no complaints Past Medical History Medical History: coronary artery disease, renal disease, other (anal CA s/p radiation, vent and G tube dependent) Past Surgical History Past Surgical Hx: other (laminectomy) Social History Smoking Status: Unknown if ever smoked Exam/Review of Systems Vital Signs Vitals Vital Signs Date Time Temp Pulse Resp B/P Pulse Ox O2 Delivery O2 Flow Rate FiO2 04/09/17 08:00 92 04/09/17 07:15 17 112/16 100 04/09/17 07:00 Mechanical Ventilator 04/09/17 05:52 50 04/09/17 04:00 100.8 Intake and Output 04/08/17 04/08/17 04/09/17 15:00 23:00 07:00 Intake Total 51.250 ml Output Total 0 ml Balance 51.250 ml Exam HEENT exam; supple neck, positive JVD. No lymphadenopathy. Midline trachea. No thyromegaly. Patient has fair dentition. Bilateral intraocular lens implants are present. Chest exam; management clear vessel. S1-S2 audible, no murmurs. Regular rhythm. There is a well-healed sternal scar. Abdomen examination; soft, nontender. No organomegaly. G-tube in place. Bowel sounds audible. Extremity exam; 2+ generalized edema is present. LABORER ORCHARD exam; patient is awake, answers questions appropriately by head nodding but has severe generalized muscular weakness. Results Result Diagram: 04/08/17 1230 04/09/17 0456 Results 24 hrs Laboratory Tests Test 04/08/17 11:54 04/08/17 12:30 04/08/17 15:25 04/08/17 17:40 Blood Gas Specimen Source Blood arterial Arterial Blood Date Drawn 04/08/2017 12:42:29 PM Arterial Blood pH (Temp corrected) 7.431 Arterial Blood pCO2 (Temp correct) 33.4 L Arterial Blood pO2 (Temp corrected) 429.2 H Arterial Blood HCO3 21.7 L Arterial Blood Base Excess -2.0 Arterial Blood Oxygen Saturation 99.5 H Mario Test N/A Arterial Blood Gas Puncture Site LB Arterial Blood Carboxyhemoglobin 0.3 Arterial Blood Methemoglobin 0.5 Blood Gas A-a O2 Differential 250.4 H Oxyhemoglobin Percent 98.7 Total Hemoglobin 10.3 L Blood Gas Temperature 37.0 Blood Gas Respiration Rate 14.0 Blood Gas Actual Respiration Rate 33 Blood Gas Modality VENT - AC FiO2 100.0 Blood Gas Tidal Volume 500.0 Blood Gas Low PEEP Setting 5.0 Blood Gas Notified Whom M.Juvenal Blood Gas Notified Time 04/08/2017 12:53:48 PM White Blood Count 20.8 #H Red Blood Count 3.18 L Hemoglobin 9.7 L Hematocrit 30.6 L Mean Corpuscular Volume 96.2 Mean Corpuscular Hemoglobin 30.5 Mean Corpuscular Hemoglobin Concent 31.7 L Red Cell Distribution Width 21.1 H Platelet Count 131 #L Mean Platelet Volume 10.1 Neutrophils % 96.0 H Lymphocytes % 1.6 L Monocytes % 1.6 Eosinophils % 0.0 Basophils % 0.1 Nucleated Red Blood Cells % 0.0 Neutrophils # 19.9 H Lymphocytes # 0.3 L Monocytes # 0.3 Eosinophils # 0.0 Basophils # 0.0 Nucleated Red Blood Cells # 0.0 Prothrombin Time 14.2 15.2 H Prothrombin Time Ratio 1.1 1.2 INR International Normalized Ratio 1.10 1.19 Activated Partial Thromboplast Time 44.6 H 46.2 H Sodium Level 134 L Potassium Level 4.1 Chloride Level 100 Carbon Dioxide Level 24 Anion Gap 14 Blood Urea Nitrogen 43 H Creatinine 2.13 H Glucose Level 236 H Calcium Level 8.2 L Total Bilirubin 0.1 L Direct Bilirubin 0.00 Indirect Bilirubin 0.1 Aspartate Amino Transf (AST/SGOT) 40 Alanine Aminotransferase (ALT/SGPT) 37 Alkaline Phosphatase 223 H Troponin I < 0.012 B-Type Natriuretic Peptide 68154 H Total Protein 7.2 Albumin 3.3 Globulin 3.90 H Albumin/Globulin Ratio 0.84 Lactic Acid Level 2.3 H Bedside Urine pH (LAB) 5.0 Bedside Urine Protein (LAB) 2+ H Bedside Urine Glucose (UA) Negative Bedside Urine Ketones (LAB) Negative Bedside Urine Blood 1+ H Bedside Urine Nitrite (LAB) Negative Bedside Urine Leukocyte Esterase (L 2+ H Test 04/08/17 21:32 04/09/17 03:30 04/09/17 04:56 04/09/17 05:45 Bedside Glucose 134 176 Sodium Level 133 L Potassium Level 4.2 Chloride Level 103 Carbon Dioxide Level 22 Anion Gap 12 Blood Urea Nitrogen 51 H Creatinine 2.22 H Glucose Level 134 # Lactic Acid Level 3.0 H Calcium Level 7.5 L Urine Color STRAW Urine Clarity CLEAR Urine pH 6.0 Urine Specific [place] 1.005 Urine Ketones NEGATIVE Urine Nitrite NEGATIVE Urine Bilirubin NEGATIVE Urine Urobilinogen NEGATIVE Urine Leukocyte Esterase TRACE A Urine Microscopic RBC 1 Urine Microscopic WBC 2 Urine Bacteria FEW A Urine Hemoglobin 3+ H Urine Glucose NEGATIVE Urine Total Protein 2+ H Medications Medications Current Medications Atorvastatin Calcium (Lipitor) 20 mg QHS GTB Last administered on 04/08/17 21: 29; Admin Dose 20 MG; Start 04/08/17 at 21:00 Acetaminophen/ Hydrocodone Bitart ([place] (5/325)) 1 tab Q6H PRN GTB SEVERE PAIN LEVEL 7-10; Start 04/08/17 at 19:30 Albuterol/ Ipratropium (Duoneb) 3 ml Q2H PRN NEB SHORTNESS OF BREATH; Start at 19:30 Lactulose (Enulose) 20 gm DAILY GTB ; Start 04/09/17 at 09:00 Lansoprazole (Prevacid) 30 mg DAILY@06 GTB Last administered on 04/09/17 06:50 ; Admin Dose 30 MG; Start 04/09/17 at 06:00 Levothyroxine Sodium (Synthroid) 125 mcg DAILY@06 GTB Last administered on 04/09 08:30; Admin Dose 125 MCG; Start 04/09/17 at 06:00 Lisinopril (Zestril) 2.5 mg BID GTB ; Start 04/08/17 at 21:00 Metoclopramide HCl (Reglan Liq) 5 mg Q8 GTB Last administered on 04/09/17 06: 50; Admin Dose 5 MG; Start 04/08/17 at 22:00 Metoprolol Tartrate (Lopressor) 25 mg BID GTB Last administered on 04/08/17 21 :30; Admin Dose 25 MG; Start 04/08/17 at 21:00 Multivit/Ca Carb/ B Cmplx/FA/Prenat (Shayla-Anuradha) 1 tab DAILY GTB ; Start at 09:00 Quetiapine Fumarate (Seroquel) 25 mg BID GTB Last administered on 04/08/17 21: 29; Admin Dose 25 MG; Start 04/08/17 at 21:00 Senna (Senokot) 2 tab BID PO ; Start 04/08/17 at 21:00 Trazodone HCl (Desyrel) 25 mg QHS PO Last administered on 04/08/17 21:29; Admin Dose 25 MG; Start 04/08/17 at 21:00 Insulin Detemir (Levemir) 5 unit BID SC Last administered on 04/08/17 21:41; Admin Dose 5 UNIT; Start 04/08/17 at 22:00 Acetaminophen (Tylenol Tab) 650 mg Q4H PRN PO PAIN AND OR ELEVATED TEMP; Start 04/08/17 at 19:30 Diagnostic Test (Pha) (Accu-Chek) 1 ea 02 XX ; Start 04/09/17 at 02:00 Morphine Sulfate (morphine) 2 mg Q4H PRN IV PAIN LEVEL 8-10; Start 04/08/17 at 19:30 Miscellaneous Information 1 ea NOTE XX ; Start 04/08/17 at 20:00 Glucose (Glutose) 15 gm Q15M PRN PO DECREASED GLUCOSE; Start 04/08/17 at 20:00 Glucose (Glutose) 22.5 gm Q15M PRN PO DECREASED GLUCOSE; Start 04/08/17 at 20: 00 Dextrose (D50w Syringe) 25 ml Q15M PRN IV DECREASED GLUCOSE; Start 04/08/17 at 20:00 Dextrose (D50w Syringe) 50 ml Q15M PRN IV DECREASED GLUCOSE; Start 04/08/17 at 20:00 Glucagon (Glucagen) 1 mg Q15M PRN IM DECREASED GLUCOSE; Start 04/08/17 at 20:00 Glucose 15 gm 15 gm Q15M PRN BUCCAL DECREASED GLUCOSE; Start 04/08/17 at 20:00 Meropenem 100 ml @ 200 mls/hr Q12 IVPB Last administered on 04/08/17 21:39; Admin Dose 200 MLS/HR; Start 04/08/17 at 22:30 Norepinephrine 16 mg/Dextrose 500 ml @ 1.87 mls/hr TITRATE IV ; Start 04/09/17 at 09:00 Levofloxacin/ Dextrose 50 ml @ 50 mls/hr Q24H IVPB Last administered on 06:50; Admin Dose 50 MLS/HR; Start 04/09/17 at 07:00 Albumin Human (Albumin Human 25%) 100 ml @ 100 mls/hr Q8H IV Last administered on 04/09/17 08:33; Admin Dose 100 MLS/HR; Start 04/09/17 at 08:00 ; Stop 04/10/17 at 00:59 Insulin Aspart (Novolog Insulin Pen) NOVOLOG *MODERATE* ALGORITHM Q6 SC ; Start 04/09/17 at 12:00 Miscellaneous Information (*Rx Drug Level Order Reminder*) RANDOM VANCOMYCIN LEVEL 6... ONCE ONCE XX ; Start 04/10/17 at 05:00; Stop 04/10/17 at 05:01 BRIE HUDSON Apr 09, 2017 10:11
[2017-04-09 10:34] LABS: ABNORMAL IP MESSAGE 1; HEMATOCRIT 24.1 % (37.0-47.0); HEMOGLOBIN 7.9 g/dl (12.0-16.0); MEAN CORPUSCULAR HEMOGLOBIN 31.5 pg (29.0-33.0); MEAN CORPUSCULAR HGB CONC 32.8 g/dl (32.0-37.0); MEAN PLATELET VOLUME 11.3 fl (7.4-10.4); PLATELET COUNT 100 10^3/UL (140-415); RED BLOOD COUNT 2.51 10^6/ul (4.20-5.40); RED CELL DISTRIBUTION WIDTH 21.4 % (11.5-14.5); WHITE BLOOD COUNT 27.1 10^3/ul (4.8-10.8)
[2017-04-09] MEDS: MULTIVIT/CA CARB/B CMPLX/FA TAB GTB SCH (10:36)
[2017-04-09] MEDS: BALSAM PERU/CASTOR OIL 60 GM TUBE TOP SCH ×2 (10:43→21:46)
[2017-04-09] MEDS: QUETIAPINE 25 MG TAB GTB SCH ×2 (10:59→22:46)
--- NOTE | 2017-04-09 11:03 | PN ---
Date/Time of Note Date/Time of Note DATE: 04/09/17 TIME: 11:02 Assessment/Plan VTE Prophylaxis VTE Prophylaxis Intervention: other Lines/Catheters IV C[facility]ter Type (from [facility]): Peripheral IV Urinary Cath still in place: Yes Reason Cath still needed: skin wounds contaminated by urine Assessment/Plan Chief Complaint/Hosp Course 1. Sepsis. Source unknown. The patient will undergo septic workup including urine culture, blood culture and sputum culture. We will empirically start her on IV vancomycin and cefepime. Dr. Rutherford will be called from an infectious disease standpoint. The patient due to fluid overload is not a candidate of IV fluid bolus. Patient also has end stage disease and apparently is in congestive heart failure. The patient's echocardiogram done in February 2017 revealed EF of only 40%. 2. Coronary artery disease with systolic heart failure. Continue hemodialysis to remove fluids. 3. Coronary artery disease, status post coronary artery bypass graft. No active issue. 4. Diabetes. We will put patient on sliding scale insulin. 5. Respiratory failure. Continue vent support. Will obtain a pulmonary consult from [facility]. 6. Hypothyroidism. Will continue Synthroid. 7. Anal cancer with recent rectal bleed. Will continue to monitor H and H. No active intervention at this time due to patient's multiple comorbidities. 8. History of pulseless electrical activity with possible anoxic encephalopathy. Will continue to monitor. 9. History of GI bleed. Will continue proton pump inhibitor. 10. Dyslipidemia. Continue statins. 11. Anemia Transfuse 2u pRBC Problems: Subjective 24 Hr Interval Summary Free Text/Dictation Patient receiving hemodialysis Exam/Review of Systems Vital Signs Vitals Vital Signs Date Time Temp Pulse Resp B/P Pulse Ox O2 Delivery O2 Flow Rate FiO2 04/09/17 08:00 92 04/09/17 07:15 17 112/16 100 04/09/17 07:00 Mechanical Ventilator 04/09/17 05:52 50 04/09/17 04:00 100.8 Intake and Output 04/08/17 04/08/17 04/09/17 15:00 23:00 07:00 Intake Total 51.250 ml Output Total 0 ml Balance 51.250 ml Exam Constitutional: well developed Head: atraumatic, normocephalic Neck: supple Respiratory: diminished breath sounds Cardiovascular: regular rate and rhythm Gastrointestinal: non-tender, soft Extremities: normal pulses Results Result Diagram: 04/09/17 1015 04/09/17 0456 Results 24 hrs Laboratory Tests Test 04/08/17 11:54 04/08/17 12:30 04/08/17 15:25 04/08/17 17:40 Blood Gas Specimen Source Blood arterial Arterial Blood Date Drawn 04/08/2017 12:42:29 PM Arterial Blood pH (Temp corrected) 7.431 Arterial Blood pCO2 (Temp correct) 33.4 L Arterial Blood pO2 (Temp corrected) 429.2 H Arterial Blood HCO3 21.7 L Arterial Blood Base Excess -2.0 Arterial Blood Oxygen Saturation 99.5 H Mario Test N/A Arterial Blood Gas Puncture Site LB Arterial Blood Carboxyhemoglobin 0.3 Arterial Blood Methemoglobin 0.5 Blood Gas A-a O2 Differential 250.4 H Oxyhemoglobin Percent 98.7 Total Hemoglobin 10.3 L Blood Gas Temperature 37.0 Blood Gas Respiration Rate 14.0 Blood Gas Actual Respiration Rate 33 Blood Gas Modality VENT - AC FiO2 100.0 Blood Gas Tidal Volume 500.0 Blood Gas Low PEEP Setting 5.0 Blood Gas Notified Whom M.D. Blood Gas Notified Time 04/08/2017 12:53:48 PM White Blood Count 20.8 #H Red Blood Count 3.18 L Hemoglobin 9.7 L Hematocrit 30.6 L Mean Corpuscular Volume 96.2 Mean Corpuscular Hemoglobin 30.5 Mean Corpuscular Hemoglobin Concent 31.7 L Red Cell Distribution Width 21.1 H Platelet Count 131 #L Mean Platelet Volume 10.1 Neutrophils % 96.0 H Lymphocytes % 1.6 L Monocytes % 1.6 Eosinophils % 0.0 Basophils % 0.1 Nucleated Red Blood Cells % 0.0 Neutrophils # 19.9 H Lymphocytes # 0.3 L Monocytes # 0.3 Eosinophils # 0.0 Basophils # 0.0 Nucleated Red Blood Cells # 0.0 Prothrombin Time 14.2 15.2 H Prothrombin Time Ratio 1.1 1.2 INR International Normalized Ratio 1.10 1.19 Activated Partial Thromboplast Time 44.6 H 46.2 H Sodium Level 134 L Potassium Level 4.1 Chloride Level 100 Carbon Dioxide Level 24 Anion Gap 14 Blood Urea Nitrogen 43 H Creatinine 2.13 H Glucose Level 236 H Calcium Level 8.2 L Total Bilirubin 0.1 L Direct Bilirubin 0.00 Indirect Bilirubin 0.1 Aspartate Amino Transf (AST/SGOT) 40 Alanine Aminotransferase (ALT/SGPT) 37 Alkaline Phosphatase 223 H Troponin I < 0.012 B-Type Natriuretic Peptide 69443 H Total Protein 7.2 Albumin 3.3 Globulin 3.90 H Albumin/Globulin Ratio 0.84 Lactic Acid Level 2.3 H Bedside Urine pH (LAB) 5.0 Bedside Urine Protein (LAB) 2+ H Bedside Urine Glucose (UA) Negative Bedside Urine Ketones (LAB) Negative Bedside Urine Blood 1+ H Bedside Urine Nitrite (LAB) Negative Bedside Urine Leukocyte Esterase (L 2+ H Test 04/08/17 21:32 04/09/17 03:30 04/09/17 04:56 04/09/17 05:45 Bedside Glucose 134 176 Sodium Level 133 L Potassium Level 4.2 Chloride Level 103 Carbon Dioxide Level 22 Anion Gap 12 Blood Urea Nitrogen 51 H Creatinine 2.22 H Glucose Level 134 # Lactic Acid Level 3.0 H Calcium Level 7.5 L Urine Color STRAW Urine Clarity CLEAR Urine pH 6.0 Urine Specific [place] 1.005 Urine Ketones NEGATIVE Urine Nitrite NEGATIVE Urine Bilirubin NEGATIVE Urine Urobilinogen NEGATIVE Urine Leukocyte Esterase TRACE A Urine Microscopic RBC 1 Urine Microscopic WBC 2 Urine Bacteria FEW A Urine Hemoglobin 3+ H Urine Glucose NEGATIVE Urine Total Protein 2+ H Test 04/09/17 10:15 White Blood Count 27.1 #H Red Blood Count 2.51 #L Hemoglobin 7.9 L Hematocrit 24.1 #L Mean Corpuscular Volume 96.0 Mean Corpuscular Hemoglobin 31.5 Mean Corpuscular Hemoglobin Concent 32.8 Red Cell Distribution Width 21.4 H Platelet Count 100 #L Mean Platelet Volume 11.3 H Neutrophils % Eosinophils % Neutrophils # Eosinophils # Medications Medications Current Medications Atorvastatin Calcium (Lipitor) 20 mg QHS GTB Last administered on 04/08/17t 21: 29; Admin Dose 20 MG; Start 04/08/17 at 21:00 Acetaminophen/ Hydrocodone Bitart ([place] (5/325)) 1 tab Q6H PRN GTB SEVERE PAIN LEVEL 7-10; Start 04/08/17 at 19:30 Albuterol/ Ipratropium (Duoneb) 3 ml Q2H PRN NEB SHORTNESS OF BREATH; Start at 19:30 Lactulose (Enulose) 20 gm DAILY GTB ; Start 04/09/17 at 09:00 Lansoprazole (Prevacid) 30 mg DAILY@06 GTB Last administered on 04/09/17 06:50 ; Admin Dose 30 MG; Start 04/09/17 at 06:00 Levothyroxine Sodium (Synthroid) 125 mcg DAILY@06 GTB Last administered on 04/09 08:30; Admin Dose 125 MCG; Start 04/09/17 at 06:00 Lisinopril (Zestril) 2.5 mg BID GTB ; Start 04/08/17 at 21:00 Metoclopramide HCl (Reglan Liq) 5 mg Q8 GTB Last administered on 04/09/17 06: 50; Admin Dose 5 MG; Start 04/08/17 at 22:00 Metoprolol Tartrate (Lopressor) 25 mg BID GTB Last administered on 04/08/17 21 :30; Admin Dose 25 MG; Start 04/08/17 at 21:00 Multivit/Ca Carb/ B Cmplx/FA/Prenat (Shayla-Anuradha) 1 tab DAILY GTB Last administered on 04/09/17 10:36; Admin Dose 1 TAB; Start 04/09/17 at 09:00 Quetiapine Fumarate (Seroquel) 25 mg BID GTB Last administered on 04/08/17 21: 29; Admin Dose 25 MG; Start 04/08/17 at 21:00 Senna (Senokot) 2 tab BID PO ; Start 04/08/17 at 21:00 Trazodone HCl (Desyrel) 25 mg QHS PO Last administered on 04/08/17 21:29; Admin Dose 25 MG; Start 04/08/17 at 21:00 Insulin Detemir (Levemir) 5 unit BID SC Last administered on 04/08/17 21:41; Admin Dose 5 UNIT; Start 04/08/17 at 22:00 Acetaminophen (Tylenol Tab) 650 mg Q4H PRN PO PAIN AND OR ELEVATED TEMP; Start 04/08/17 at 19:30 Diagnostic Test (Pha) (Accu-Chek) 1 ea 02 XX ; Start 04/09/17 at 02:00 Morphine Sulfate (morphine) 2 mg Q4H PRN IV PAIN LEVEL 8-10; Start 04/08/17 at 19:30 Miscellaneous Information 1 ea NOTE XX ; Start 04/08/17 at 20:00 Glucose (Glutose) 15 gm Q15M PRN PO DECREASED GLUCOSE; Start 04/08/17 at 20:00 Glucose (Glutose) 22.5 gm Q15M PRN PO DECREASED GLUCOSE; Start 04/08/17 at 20: 00 Dextrose (D50w Syringe) 25 ml Q15M PRN IV DECREASED GLUCOSE; Start 04/08/17 at 20:00 Dextrose (D50w Syringe) 50 ml Q15M PRN IV DECREASED GLUCOSE; Start 04/08/17 at 20:00 Glucagon (Glucagen) 1 mg Q15M PRN IM DECREASED GLUCOSE; Start 04/08/17 at 20:00 Glucose 15 gm 15 gm Q15M PRN BUCCAL DECREASED GLUCOSE; Start 04/08/17 at 20:00 Meropenem 100 ml @ 200 mls/hr Q12 IVPB Last administered on 04/08/17 21:39; Admin Dose 200 MLS/HR; Start 04/08/17 at 22:30 Norepinephrine 16 mg/Dextrose 500 ml @ 1.87 mls/hr TITRATE IV ; Start 04/09/17 at 09:00 Levofloxacin/ Dextrose 50 ml @ 50 mls/hr Q24H IVPB Last administered on 06:50; Admin Dose 50 MLS/HR; Start 04/09/17 at 07:00 Albumin Human (Albumin Human 25%) 100 ml @ 100 mls/hr Q8H IV Last administered on 04/09/17 08:33; Admin Dose 100 MLS/HR; Start 04/09/17 at 08:00 ; Stop 04/10/17 at 00:59 Insulin Aspart (Novolog Insulin Pen) NOVOLOG *MODERATE* ALGORITHM Q6 SC ; Start 04/09/17 at 12:00 Miscellaneous Information (*Rx Drug Level Order Reminder*) RANDOM VANCOMYCIN LEVEL 6... ONCE ONCE XX ; Start 04/10/17 at 05:00; Stop 04/10/17 at 05:01 KETAN VELEZ Apr 09, 2017 11:03
[2017-04-09] MEDS: INSULIN DETEMIR [LEVEMIR] 3ML CART SC SCH ×2 (11:05→21:54)
[2017-04-09] MEDS: INSULIN ASPART [NOVOLOG] 3 ML PEN SC SCH ×2 (11:16→17:55)
--- NOTE | 2017-04-09 12:57 | CONS ---
VARINDER JULES NP 04/09/17 1257: Date/Time of Note Date/Time of Note DATE: 04/09/17 TIME: 12:53 Assessment/Plan Assessment/Plan Chief Complaint/Hosp Course - septic shock due to GNR bacteremia - GNR bacteremia from unclear etiology - severe sepsis, possible etiologies include HCAP, UTI, early diverticulitis, SBP (mild ascites) - acute toxic metabolic encephalopathy - rectal bleeding at [facility] prior to admission, possibly due to radiation proctitis. So far no bleeding after arrival - h/o anal CA s/p radiation - diverticulosis without diverticulitis on CT - mild ascites - possible HCAP with moderate pleural effusion - bloody secretion via trach, possible due to CHF - pulm edema and volume overload - ESRD on HD, via permacath on R chest wall. 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 - send stool for c diff (we are aware pt is on laxatives but pt also had a change in clinical status requiring transfer to ICU) - continue empiric IV vancomycin and meropenem - continue levofloxacin as ordered by PMD; plan to adjust abx after rolle cultures results are back - recommend TTE to r/o endocarditis - recommend orthopedic/neurosurgery consult re; potential destructive change at the L4-5 disk space with apparent posterior retropulsion of portion of artificial disk (seen on CT) Management d/w [employer] Man RN, and Dr. Thurston Critical care time spent: 45 min Problems: Consultation Date/Type/Reason Admit Date/Time Apr 08, 2017 at 16:19 Initial Consult Date 04/09/17 Type of Consultation: Infectious Disease Referring Provider: IVAN MALLOY MD 24 HR Interval Summary Free Text/Dictation Tmax 102.1 and abx were adjusted last night. Pt was transferred to ICU overnight due to hypotension and placed on vasopressor support and levofloxacin was added by PMD. PICC line was not placed yet - awaiting Nephrology clearance. Pressor support was increased for HD per d/w nursing staff. HD just completed with net 2.5L removed. Subjective hx not possible: pt non-verbal, pt critical status Exam/Review of Systems Vital Signs Vitals Vital Signs Date Time Temp Pulse Resp B/P Pulse Ox O2 Delivery O2 Flow Rate FiO2 04/09/17 11:11 94 19 100 50 04/09/17 08:00 Bag Valve Mask 04/09/17 07:15 112/16 04/09/17 04:00 100.8 Intake and Output 04/08/17 04/08/17 04/09/17 15:00 23:00 07:00 Intake Total 51.250 ml Output Total 0 ml Balance 51.250 ml Exam Constitutional: frail, non-verbal Head: atraumatic, normocephalic Eyes: nl conjunctiva, nl lids Neck: other (tracheostomy midline) Respiratory: diminished breath sounds, other (R chest wall HD catheter intact) Cardiovascular: nl pulses, regular rate and rhythm Gastrointestinal: bowel sounds, other (G-tube in place; liquid greenish stool noted), soft Genitourinary - Female: other (Leonard catheter intact) Musculoskeletal: swelling Extremities: edema (anasarca), pitting pedal edema Neurological: lethargic Skin: ecchymosis, laceration (superficial skin tears on b/l UE) Results Result Diagram: 04/09/17 1015 04/09/17 0456 Results 24 hrs Laboratory Tests Test 04/08/17 15:25 04/08/17 17:40 04/08/17 21:32 04/09/17 03:30 Prothrombin Time 15.2 H Prothrombin Time Ratio 1.2 INR International Normalized Ratio 1.19 Activated Partial Thromboplast Time 46.2 H Lactic Acid Level 2.3 H Bedside Urine pH (LAB) 5.0 Bedside Urine Protein (LAB) 2+ H Bedside Urine Glucose (UA) Negative Bedside Urine Ketones (LAB) Negative Bedside Urine Blood 1+ H Bedside Urine Nitrite (LAB) Negative Bedside Urine Leukocyte Esterase (L 2+ H Bedside Glucose 134 176 Test 04/09/17 04:56 04/09/17 05:45 04/09/17 10:15 04/09/17 11:02 Sodium Level 133 L Potassium Level 4.2 Chloride Level 103 Carbon Dioxide Level 22 Anion Gap 12 Blood Urea Nitrogen 51 H Creatinine 2.22 H Glucose Level 134 # Lactic Acid Level 3.0 H Calcium Level 7.5 L Urine Color STRAW Urine Clarity CLEAR Urine pH 6.0 Urine Specific [place] 1.005 Urine Ketones NEGATIVE Urine Nitrite NEGATIVE Urine Bilirubin NEGATIVE Urine Urobilinogen NEGATIVE Urine Leukocyte Esterase TRACE A Urine Microscopic RBC 1 Urine Microscopic WBC 2 Urine Bacteria FEW A Urine Hemoglobin 3+ H Urine Glucose NEGATIVE Urine Total Protein 2+ H White Blood Count 27.1 #H Red Blood Count 2.51 #L Hemoglobin 7.9 L Hematocrit 24.1 #L Mean Corpuscular Volume 96.0 Mean Corpuscular Hemoglobin 31.5 Mean Corpuscular Hemoglobin Concent 32.8 Red Cell Distribution Width 21.4 H Platelet Count 100 #L Mean Platelet Volume 11.3 H Neutrophils % Eosinophils % Neutrophils # Eosinophils # Bedside Glucose 198 Medications Medications Current Medications Atorvastatin Calcium (Lipitor) 20 mg QHS GTB Last administered on 04/08/17 21: 29; Admin Dose 20 MG; Start 04/08/17 at 21:00 Acetaminophen/ Hydrocodone Bitart ([place] (5/325)) 1 tab Q6H PRN GTB SEVERE PAIN LEVEL 7-10; Start 04/08/17 at 19:30 Albuterol/ Ipratropium (Duoneb) 3 ml Q2H PRN NEB SHORTNESS OF BREATH; Start at 19:30 Lactulose (Enulose) 20 gm DAILY GTB ; Start 04/09/17 at 09:00 Lansoprazole (Prevacid) 30 mg DAILY@06 GTB Last administered on 04/09/17 06:50 ; Admin Dose 30 MG; Start 04/09/17 at 06:00 Levothyroxine Sodium (Synthroid) 125 mcg DAILY@06 GTB Last administered on 04/09 08:30; Admin Dose 125 MCG; Start 04/09/17 at 06:00 Lisinopril (Zestril) 2.5 mg BID GTB ; Start 04/08/17 at 21:00 Metoclopramide HCl (Reglan Liq) 5 mg Q8 GTB Last administered on 04/09/17 06: 50; Admin Dose 5 MG; Start 04/08/17 at 22:00 Metoprolol Tartrate (Lopressor) 25 mg BID GTB Last administered on 04/08/17 21 :30; Admin Dose 25 MG; Start 04/08/17 at 21:00 Multivit/Ca Carb/ B Cmplx/FA/Prenat (Shayla-Anuradha) 1 tab DAILY GTB Last administered on 04/09/17 10:36; Admin Dose 1 TAB; Start 04/09/17 at 09:00 Quetiapine Fumarate (Seroquel) 25 mg BID GTB Last administered on 04/09/17 10: 59; Admin Dose 25 MG; Start 04/08/17 at 21:00 Senna (Senokot) 2 tab BID PO ; Start 04/08/17 at 21:00 Trazodone HCl (Desyrel) 25 mg QHS PO Last administered on 04/08/17 21:29; Admin Dose 25 MG; Start 04/08/17 at 21:00 Insulin Detemir (Levemir) 5 unit BID SC Last administered on 04/09/17 11:05; Admin Dose 5 UNIT; Start 04/08/17 at 22:00 Acetaminophen (Tylenol Tab) 650 mg Q4H PRN PO PAIN AND OR ELEVATED TEMP; Start 04/08/17 at 19:30 Diagnostic Test (Pha) (Accu-Chek) 1 ea 02 XX ; Start 04/09/17 at 02:00 Morphine Sulfate (morphine) 2 mg Q4H PRN IV PAIN LEVEL 8-10; Start 04/08/17 at 19:30 Miscellaneous Information 1 ea NOTE XX ; Start 04/08/17 at 20:00 Glucose (Glutose) 15 gm Q15M PRN PO DECREASED GLUCOSE; Start 04/08/17 at 20:00 Glucose (Glutose) 22.5 gm Q15M PRN PO DECREASED GLUCOSE; Start 04/08/17 at 20: 00 Dextrose (D50w Syringe) 25 ml Q15M PRN IV DECREASED GLUCOSE; Start 04/08/17 at 20:00 Dextrose (D50w Syringe) 50 ml Q15M PRN IV DECREASED GLUCOSE; Start 04/08/17 at 20:00 Glucagon (Glucagen) 1 mg Q15M PRN IM DECREASED GLUCOSE; Start 04/08/17 at 20:00 Glucose 15 gm 15 gm Q15M PRN BUCCAL DECREASED GLUCOSE; Start 04/08/17 at 20:00 Meropenem 100 ml @ 200 mls/hr Q12 IVPB Last administered on 04/08/17 21:39; Admin Dose 200 MLS/HR; Start 04/08/17 at 22:30 Norepinephrine 16 mg/Dextrose 500 ml @ 1.87 mls/hr TITRATE IV ; Start 04/09/17 at 09:00 Levofloxacin/ Dextrose 50 ml @ 50 mls/hr Q24H IVPB Last administered on 06:50; Admin Dose 50 MLS/HR; Start 04/09/17 at 07:00 Albumin Human (Albumin Human 25%) 100 ml @ 100 mls/hr Q8H IV Last administered on 04/09/17 08:33; Admin Dose 100 MLS/HR; Start 04/09/17 at 08:00 ; Stop 04/10/17 at 00:59 Insulin Aspart (Novolog Insulin Pen) NOVOLOG *MODERATE* ALGORITHM Q6 SC Last administered on 04/09/17 11:16; Admin Dose 4 UNIT; Start 04/09/17 at 12:00 Miscellaneous Information (*Rx Drug Level Order Reminder*) RANDOM VANCOMYCIN LEVEL 6... ONCE ONCE XX ; Start 04/10/17 at 05:00; Stop 04/10/17 at 05:01 Collagenase (Santyl) 1 applic DAILY TOP ; Start 04/09/17 at 14:00 Collagenase (Santyl) 1 applic DAILY PRN TOP WHEN SOILED; Start 04/09/17 at 13: [address] abd/pelvis 04/08/2017: 1. Moderate bilateral pleural effusions, mild abdominopelvic ascites, and anasarca are suggestive of fluid overload. 2. Atherosclerotic vascular disease including severe small vessel/coronary artery calcifications. 3. Diverticulosis without definitive evidence of diverticulitis. 4. Status post posterior laminectomy and interbody fusion at L4-L5. There is irregularity and potential destructive change at the L4-5 disk space with apparent posterior retropulsion of portion of artificial disk. Findings are concerning for hardware failure or malfunction. CXR 04/08/2017: 1. New dialysis catheter in satisfactory position. 2. Worsening pulmonary edema. 3. Left arm PICC line removed. SHELUB,PATY M. MD 04/10/17 1322: Assessment/Plan Assessment/Plan Chief Complaint/Hosp Course d/w KURT Jules. emr reviewed. Problems: Exam/Review of Systems Results Result Diagram: 04/09/17 1015 04/09/17 0456 VARINDER JULES NP Apr 09, 2017 12:57 PATY THURSTON MD Apr 10, 2017 13:22
[2017-04-09] MEDS ORDERED: COLLAGENASE 30 GM TUBE TOP PRN (13:00)
[2017-04-09] MEDS ORDERED: PENDING SANTYL ORDER FOR WOUND CARE XX PRN (13:00)
[2017-04-09 13:52] LABS: LYMPHOCYTES # 1.4 10^3/ul (0.8-2.9); MONOCYTE # 1.6 10^3/ul (0.3-0.9); NEUTROPHIL # 12.5 10^3/ul (1.6-7.5)
[2017-04-09] MEDS: MEROPENEM 500 MG/100 ML (PMX) 100 ML IVPB SCH ×2 (14:25→21:42)
[2017-04-09] MEDS: COLLAGENASE 30 GM TUBE TOP SCH (16:00)
[2017-04-09] MEDS: ATORVASTATIN 20 MG TAB GTB SCH (21:43)
[2017-04-10] VITALS (118 sets, daily range): BP systolic 90–140; BP diastolic 39–77; PULSE 89–113; RESP 0–29
[2017-04-10] MEDS: traZODone 50 MG TAB PO SCH ×2 (00:32→21:34)
[2017-04-10] MEDS: ALBUMIN HUMAN 25% 100 ML IV SCH (00:38)
[2017-04-10] MEDS: ACCU-CHEK XX SCH (02:00)
[2017-04-10 05:08] LABS: ADD SCAN DIFF NO
[2017-04-10 05:13] LABS: ABNORMAL IP MESSAGE 1; HEMATOCRIT 23.4 % (37.0-47.0); HEMOGLOBIN 7.6 g/dl (12.0-16.0); MEAN CORPUSCULAR HEMOGLOBIN 30.4 pg (29.0-33.0); MEAN CORPUSCULAR HGB CONC 32.5 g/dl (32.0-37.0); MEAN CORPUSCULAR VOLUME 93.6 fl (82.0-101.0); MEAN PLATELET VOLUME 10.2 fl (7.4-10.4); PLATELET COUNT 99 10^3/UL (140-415); RED CELL DISTRIBUTION WIDTH 22.1 % (11.5-14.5); WHITE BLOOD COUNT 24.1 10^3/ul (4.8-10.8)
[2017-04-10 05:48] LABS: CALCIUM 7.8 mg/dl (8.4-10.2); CREATININE 1.91 mg/dl (0.44-1.00); PHOSPHORUS 1.6 mg/dl (2.5-4.9); POTASSIUM 3.1 mmol/L (3.5-5.1)
[2017-04-10] MEDS: INSULIN ASPART [NOVOLOG] 3 ML PEN SC SCH ×4 (06:00→17:58)
[2017-04-10] MEDS: LEVOTHYROXINE 125 MCG TAB GTB SCH (06:08)
[2017-04-10] MEDS: LANSOPRAZOLE 30 MG CAP GTB SCH (06:08)
[2017-04-10] MEDS: METOCLOPRAMIDE (1 MG/ML) 10 ML CUP GTB SCH (06:08)
[2017-04-10] MEDS: LEVOFLOXACIN 250MG/D5W (PMX) 50 ML IVPB SCH (06:09)
--- NOTE | 2017-04-10 07:14 | CONS ---
Date/Time of Note Date/Time of Note DATE: 04/10/17 TIME: 07:10 Assessment/Plan Assessment/Plan Additional Assessment/Plan Ventilator setting; AC of 14, tidal volume 500, PEEP of 5, 40% FiO2. Levophed at 10 mics per minute. Assessment recommendations; 1. Patient admitted with sepsis either lying associated or pneumonia. 2. Superimposed pulmonary edema. 3. Chronic respiratory failure. 4. Generalized deconditioning. 5. Prior history of CABG. 6. Chronic renal failure, on hemodialysis. 7. Hypertension. 8. Diabetes. 9. Hypo-thyroidism. 10. Anemia. 12. Thrombocytopenia. Continue current treatment. Patient responding well to current treatment regimen. Will obtain follow-up chest x-ray. 35 minutes of critical care time was spent evaluating the patient. Consultation Date/Type/Reason Admit Date/Time Apr 08, 2017 at 16:19 Initial Consult Date 04/09/17 Type of Consultation: Pulmonary/critical care Referring Provider: IVAN MALLOY MD 24 HR Interval Summary Free Text/Dictation Patient condition remains critical. Still requiring pressor support for hypotension. Patient remains awake and alert. [place]; elderly woman, on ventilator via tracheostomy currently in no distress. Awake. Exam/Review of Systems Vital Signs Vitals Vital Signs Date Time Temp Pulse Resp B/P Pulse Ox O2 Delivery O2 Flow Rate FiO2 04/10/17 06:45 99 15 103/47 100 Mechanical Ventilator 04/10/17 05:31 40 04/10/17 04:00 98.4 Intake and Output 04/09/17 04/09/17 04/10/17 15:00 23:00 07:00 Intake Total 1082.38 ml 420.0 ml 255 ml Output Total 3010 ml 0 ml 0 ml Balance -1927.62 ml 420.0 ml 255 ml Exam HEENT exam; supple neck, no JVD. No lymphadenopathy. Midline trachea. No thyromegaly. Tracheostomy placed with clean insertion site. Patient is edentulous. Pupils are small bilaterally. Chest examined; diminished breath sounds bilaterally. No added sound. S1-S2 audible, no murmurs. Regular rhythm. There is a well-healed sternal scar. Abdomen exam; soft, non-distended. No organomegaly. G-tube in place. Bowel sounds audible. Extremity exam; trace peripheral edema. Pulses 1+ bilaterally. There are patchy ecchymosis involving all 4 extremities. [employer]MAT[employer] exam is; patient is awake but has severe generalized muscular weakness. Results Result Diagram: 04/10/17 0500 04/10/17 0500 Results 24 hrs Laboratory Tests Test 04/09/17 10:15 04/09/17 11:02 04/09/17 17:50 04/09/17 21:51 White Blood Count 27.1 #H Red Blood Count 2.51 #L Hemoglobin 7.9 L Hematocrit 24.1 #L Mean Corpuscular Volume 96.0 Mean Corpuscular Hemoglobin 31.5 Mean Corpuscular Hemoglobin Concent 32.8 Red Cell Distribution Width 21.4 H Platelet Count 100 #L Mean Platelet Volume 11.3 H Neutrophils % 46.0 Band Neutrophils % 43.0 H Lymphocytes % 5.0 L Monocytes % 6.0 Eosinophils % Neutrophils # 12.5 H Lymphocytes # 1.4 Monocytes # 1.6 H Eosinophils # Bedside Glucose 198 175 131 Test 04/10/17 00:39 04/10/17 05:00 04/10/17 06:10 Bedside Glucose 149 124 White Blood Count 24.1 H Red Blood Count 2.50 L Hemoglobin 7.6 L Hematocrit 23.4 L Mean Corpuscular Volume 93.6 Mean Corpuscular Hemoglobin 30.4 Mean Corpuscular Hemoglobin Concent 32.5 Red Cell Distribution Width 22.1 H Platelet Count 99 L Mean Platelet Volume 10.2 Neutrophils % Eosinophils % Neutrophils # Eosinophils # Sodium Level 134 L Potassium Level 3.1 L Chloride Level 99 Carbon Dioxide Level 26 Anion Gap 12 Blood Urea Nitrogen 37 #H Creatinine 1.91 H Glucose Level 133 Calcium Level 7.8 L Phosphorus Level 1.6 L Magnesium Level 2.0 Random Vancomycin Level 8.2 Medications Medications Current Medications Atorvastatin Calcium (Lipitor) 20 mg QHS GTB Last administered on 04/09/17t 21: 43; Admin Dose 20 MG; Start 04/08/17 at 21:00 Acetaminophen/ Hydrocodone Bitart ([place] (5/325)) 1 tab Q6H PRN GTB SEVERE PAIN LEVEL 7-10; Start 04/08/17 at 19:30 Albuterol/ Ipratropium (Duoneb) 3 ml Q2H PRN NEB SHORTNESS OF BREATH; Start at 19:30 Lactulose (Enulose) 20 gm DAILY GTB ; Start 04/09/17 at 09:00 Lansoprazole (Prevacid) 30 mg DAILY@06 GTB Last administered on 04/10/17 06:08 ; Admin Dose 30 MG; Start 04/09/17 at 06:00 Levothyroxine Sodium (Synthroid) 125 mcg DAILY@06 GTB Last administered on 04/10 06:08; Admin Dose 125 MCG; Start 04/09/17 at 06:00 Lisinopril (Zestril) 2.5 mg BID GTB ; Start 04/08/17 at 21:00 Metoclopramide HCl (Reglan Liq) 5 mg Q8 GTB Last administered on 04/10/17 06: 08; Admin Dose 5 MG; Start 04/08/17 at 22:00 Metoprolol Tartrate (Lopressor) 25 mg BID GTB Last administered on 04/08/17 21 :30; Admin Dose 25 MG; Start 04/08/17 at 21:00 Multivit/Ca Carb/ B Cmplx/FA/Prenat (Shayla-Anuradha) 1 tab DAILY GTB Last administered on 04/09/17 10:36; Admin Dose 1 TAB; Start 04/09/17 at 09:00 Quetiapine Fumarate (Seroquel) 25 mg BID GTB Last administered on 04/09/17 22: 46; Admin Dose 25 MG; Start 04/08/17 at 21:00 Senna (Senokot) 2 tab BID PO ; Start 04/08/17 at 21:00 Trazodone HCl (Desyrel) 25 mg QHS PO Last administered on 04/10/17 00:32; Admin Dose 25 MG; Start 04/08/17 at 21:00 Insulin Detemir (Levemir) 5 unit BID SC Last administered on 04/09/17 21:54; Admin Dose 5 UNIT; Start 04/08/17 at 22:00 Acetaminophen (Tylenol Tab) 650 mg Q4H PRN PO PAIN AND OR ELEVATED TEMP; Start 04/08/17 at 19:30 Diagnostic Test (Pha) (Accu-Chek) 1 ea 02 XX Last administered on 04/10/17 02: 00; Admin Dose 1 EA; Start 04/09/17 at 02:00 Morphine Sulfate (morphine) 2 mg Q4H PRN IV PAIN LEVEL 8-10; Start 04/08/17 at 19:30 Miscellaneous Information 1 ea NOTE XX ; Start 04/08/17 at 20:00 Glucose (Glutose) 15 gm Q15M PRN PO DECREASED GLUCOSE; Start 04/08/17 at 20:00 Glucose (Glutose) 22.5 gm Q15M PRN PO DECREASED GLUCOSE; Start 04/08/17 at 20: 00 Dextrose (D50w Syringe) 25 ml Q15M PRN IV DECREASED GLUCOSE; Start 04/08/17 at 20:00 Dextrose (D50w Syringe) 50 ml Q15M PRN IV DECREASED GLUCOSE; Start 04/08/17 at 20:00 Glucagon (Glucagen) 1 mg Q15M PRN IM DECREASED GLUCOSE; Start 04/08/17 at 20:00 Glucose 15 gm 15 gm Q15M PRN BUCCAL DECREASED GLUCOSE; Start 04/08/17 at 20:00 Meropenem 100 ml @ 200 mls/hr Q12 IVPB Last administered on 04/09/17 21:42; Admin Dose 200 MLS/HR; Start 04/08/17 at 22:30 Norepinephrine 16 mg/Dextrose 500 ml @ 1.87 mls/hr TITRATE IV Last administered on 04/09/17 21:41; Admin Dose 22.5 MLS/HR; Start 04/09/17 at 09:00 Levofloxacin/ Dextrose (Levaquin 250 Mg/ D5W 50 ml (Pmx)) 50 ml @ 50 mls/hr Q24H IVPB Last administered on 04/10/17 06:09; Admin Dose 50 MLS/HR; Start at 07:00 Insulin Aspart (Novolog Insulin Pen) NOVOLOG *MODERATE* ALGORITHM Q6 SC Last administered on 04/09/17 17:55; Admin Dose 2 UNIT; Start 04/09/17 at 12:00 Collagenase (Santyl) 1 applic DAILY TOP Last administered on 04/09/17 16:00; Admin Dose 1 APPLIC; Start 04/09/17 at 14:00 Collagenase (Santyl) 1 applic DAILY PRN TOP WHEN SOILED; Start 04/09/17 at 13: 00 BRIE HUDSON Apr 10, 2017 07:14
[2017-04-10] MEDS ORDERED: POTASSIUM PHOSPHATE 20 MEQ in SOD CHLORIDE 0.9% 250 ML IVPB ONE (08:30)
[2017-04-10] MEDS: SENNA TAB PO SCH (09:00)
[2017-04-10] MEDS: METOPROLOL 25 MG TAB GTB SCH (09:00)
[2017-04-10] MEDS: LISINOPRIL 5 MG TAB GTB SCH (09:00)
[2017-04-10] MEDS: LACTULOSE 30ML CUP GTB SCH (09:00)
[2017-04-10 09:15] LABS: ANISOCYTOSIS 1+; LYMPHOCYTES # 0.7 10^3/ul (0.8-2.9); NEUTROPHIL # 15.9 10^3/ul (1.6-7.5)
--- NOTE | 2017-04-10 09:19 | PN ---
DATE: 04/10/2017 SUBJECTIVE: The patient remains critically ill on pressor support. The patient had hemodialysis ye day with approximately 3 liters removed. No other acute events noted. OBJECTIVE: VITAL SIGNS: Blood pressure is 103/47, respirations 15, pulse 99, temperature 98.6. HEENT: Head is normocephalic. Pupils are reactive to light. NECK: Supple. HEART: Regular rate. LUNGS: Show diminished breath sounds at base. ABDOMEN: Soft, nontender to palpation. Positive PEG. EXTREMITIES: Negative for clubbing, cyanosis. Positive edema, diffuse anasarca. DERMATOLOGIC: No rashes. MUSCULOSKELETAL: No joint effusions. NEUROLOGIC: No change in exam. The patient is obtunded. LABORATORY DATA: Showed sodium 135, potassium 3.1, chloride 99, bicarbonate 26, BUN 37, creatinine 1.91, phosphorus is 1.6, calcium 7.8. White count is 24.1, hemoglobin 7.6, hematocrit 23.1, platele t count is 99. The patient's blood cultures grew out gram-negative rods. IMAGING: CT scan of abdomen and pelvis was reviewed. ASSESSMENT AND PLAN: 1. End-stage renal disease. The patient is currently on daily dialysis for solute clearance and vo lume removal. Plan for dialysis again for 3 hours 3k bath, calcium 2.5, will ultrafiltrate as yazan ated. 2. Anemia of chronic disease. Continue to monitor H and H levels. We will continue Epogen with he modialysis. 3. Mineral bone disorder. Continue to monitor calcium and phosphorus levels. 4. Hyponatremia secondary to end-stage renal disease. Continue dialysis on a 140 sodium bath. 5. Septic shock. Underlying source is multifactorial, possibly UTI pneumonia. Continue current br oad spectrum antibiotics, pressor support. 6. Ventilator dependent respiratory failure. Vent settings have been reviewed. ABG has been revie wed. Continue to monitor. 7. Dysphagia, status post percutaneous endoscopic gastrostomy. Continue tube feeding. 8. History of coronary artery disease. Continue medical management. 9. Diabetes. Continue Accu-Cheks, insulin sliding scale. 10. Hypothyroidism. Continue Synthroid. 11. History of anal cancer with rectal bleeding. Continue to monitor hemoglobin and hematocrit lev els. 12. Acute on chronic encephalopathy. Etiology toxic metabolic. Continue to monitor. 13. Volume overload secondary to end-stage renal disease and congestive heart failure. Continue ul trafiltration with hemodialysis. 14. Hypokalemia, replete with potassium chloride. Please note, I spent over 35 minutes of critical care time with this patient. Dictated By: ANJELICA BE/JUAN R Conf#: [id number] DID#: [id number]
[2017-04-10] MEDS: QUETIAPINE 25 MG TAB GTB SCH ×2 (09:44→21:33)
[2017-04-10] MEDS: MEROPENEM 500 MG/100 ML (PMX) 100 ML IVPB SCH ×2 (09:44→21:34)
[2017-04-10] MEDS: MULTIVIT/CA CARB/B CMPLX/FA TAB GTB SCH (09:44)
[2017-04-10] MEDS: BALSAM PERU/CASTOR OIL 60 GM TUBE TOP SCH ×2 (09:46→23:13)
[2017-04-10] MEDS: COLLAGENASE 30 GM TUBE TOP SCH (09:46)
[2017-04-10] MEDS: INSULIN DETEMIR [LEVEMIR] 3ML CART SC SCH ×2 (09:50→21:38)
--- NOTE | 2017-04-10 09:52 | CONS ---
Date/Time of Note Date/Time of Note DATE: 04/10/17 TIME: 09:50 Assessment/Plan Assessment/Plan Chief Complaint/Hosp Course - septic shock due to GNR bacteremia (Klebsiella) - bacteremia due to klebsiella from unclear etiology - severe sepsis, possible etiologies include HCAP, UTI, early diverticulitis, SBP (mild ascites), HD catheter - acute toxic metabolic encephalopathy - improving - rectal bleeding at [facility] prior to admission, possibly due to radiation proctitis. So far no bleeding after arrival - normocytic anemia - h/o anal CA s/p radiation - diverticulosis without diverticulitis on CT - mild ascites - possible HCAP with moderate pleural effusion - bloody secretion via trach, possible due to CHF - pulm edema and volume overload - ESRD on HD, via permacath on R chest wall. 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 - ventilator dependent resp failure s/p tracheostomy placement - G tube dependent status - diarrhea, on laxatives; C diff negative - reported allergy to penicillin and sulfa drugs - reactions unknown recommendations: - pending results: blood cx x2 from HD catheter (re-ordered as initial orders were cancelled), resp cx, urine cx - continue empiric IV vancomycin and meropenem - continue levofloxacin as ordered by PMD; plan to adjust abx after rolle cultures results are back - TTE to r/o endocarditis (ordered) - trend WBC - hold laxatives (pt on lactulose, reglan and senna) due to diarrhea - hold BP meds (lisinopril and metoprolol) until pressors weaned off - recommend orthopedic/neurosurgery consult re; potential destructive change at the L4-5 disk space with apparent posterior retropulsion of portion of artificial disk (seen on CT) Management d/w [employer] [employer] Man and Dr. Thurston Critical care time spent: 40 min Problems: Consultation Date/Type/Reason Admit Date/Time Apr 08, 2017 at 16:19 Initial Consult Date 04/09/17 Type of Consultation: Infectious Disease Referring Provider: IVAN MALLOY MD 24 HR Interval Summary Free Text/Dictation Afebrile, levophed weaned down to 7 mcg/min, pt more alert and had 4 bouts of diarrhea last night; c diff negative. Getting PICC today per d/w nursing staff. Nods no to pain or SOB. Subjective hx not possible: pt non-verbal, pt critical status Exam/Review of Systems Vital Signs Vitals Vital Signs Date Time Temp Pulse Resp B/P Pulse Ox O2 Delivery O2 Flow Rate FiO2 04/10/17 08:45 93 14 99/62 100 04/10/17 08:30 Mechanical Ventilator 04/10/17 08:00 98.3 04/10/17 08:00 40 Intake and Output 04/09/17 04/09/17 04/10/17 15:00 23:00 07:00 Intake Total 1082.38 ml 587.5 ml 536.74 ml Output Total 3010 ml 0 ml 0 ml Balance -1927.62 ml 587.5 ml 536.74 ml Exam Constitutional: alert, frail, non-verbal Head: atraumatic, normocephalic Eyes: nl conjunctiva, nl lids Neck: other (tracheostomy midline) Respiratory: diminished breath sounds, other (R chest wall HD catheter intact) Cardiovascular: nl pulses, regular rate and rhythm Gastrointestinal: bowel sounds, other (G-tube in place with tube feeds), soft Genitourinary - Female: other (Leonard catheter intact) Musculoskeletal: swelling Extremities: edema (anasarca), pitting pedal edema Neurological: lethargic but more alert. Nods to simple questions. Skin: ecchymosis, laceration (superficial skin tears on b/l UE) Results Result Diagram: 04/10/17 0500 04/10/17 0500 Results 24 hrs Laboratory Tests Test 04/09/17 10:15 04/09/17 11:02 04/09/17 17:50 04/09/17 21:51 White Blood Count 27.1 #H Red Blood Count 2.51 #L Hemoglobin 7.9 L Hematocrit 24.1 #L Mean Corpuscular Volume 96.0 Mean Corpuscular Hemoglobin 31.5 Mean Corpuscular Hemoglobin Concent 32.8 Red Cell Distribution Width 21.4 H Platelet Count 100 #L Mean Platelet Volume 11.3 H Neutrophils % 46.0 Band Neutrophils % 43.0 H Lymphocytes % 5.0 L Monocytes % 6.0 Eosinophils % Neutrophils # 12.5 H Lymphocytes # 1.4 Monocytes # 1.6 H Eosinophils # Bedside Glucose 198 175 131 Test 04/10/17 00:39 04/10/17 05:00 04/10/17 06:10 Bedside Glucose 149 124 White Blood Count 24.1 H Red Blood Count 2.50 L Hemoglobin 7.6 L Hematocrit 23.4 L Mean Corpuscular Volume 93.6 Mean Corpuscular Hemoglobin 30.4 Mean Corpuscular Hemoglobin Concent 32.5 Red Cell Distribution Width 22.1 H Platelet Count 99 L Mean Platelet Volume 10.2 Neutrophils % 66.0 Band Neutrophils % 31.0 H Lymphocytes % 3.0 L Eosinophils % Neutrophils # 15.9 H Lymphocytes # 0.7 L Eosinophils # Anisocytosis 1+ Sodium Level 134 L Potassium Level 3.1 L Chloride Level 99 Carbon Dioxide Level 26 Anion Gap 12 Blood Urea Nitrogen 37 #H Creatinine 1.91 H Glucose Level 133 Calcium Level 7.8 L Phosphorus Level 1.6 L Magnesium Level 2.0 Random Vancomycin Level 8.2 Medications Medications Current Medications Atorvastatin Calcium (Lipitor) 20 mg QHS GTB Last administered on 04/09/17 21: 43; Admin Dose 20 MG; Start 04/08/17 at 21:00 Acetaminophen/ Hydrocodone Bitart ([place] (5/325)) 1 tab Q6H PRN GTB SEVERE PAIN LEVEL 7-10; Start 04/08/17 at 19:30 Albuterol/ Ipratropium (Duoneb) 3 ml Q2H PRN NEB SHORTNESS OF BREATH; Start at 19:30 Lactulose (Enulose) 20 gm DAILY GTB ; Start 04/09/17 at 09:00 Lansoprazole (Prevacid) 30 mg DAILY@06 GTB Last administered on 04/10/17 06:08 ; Admin Dose 30 MG; Start 04/09/17 at 06:00 Levothyroxine Sodium (Synthroid) 125 mcg DAILY@06 GTB Last administered on 04/10 06:08; Admin Dose 125 MCG; Start 04/09/17 at 06:00 Lisinopril (Zestril) 2.5 mg BID GTB ; Start 04/08/17 at 21:00 Metoclopramide HCl (Reglan Liq) 5 mg Q8 GTB Last administered on 04/10/17 06: 08; Admin Dose 5 MG; Start 04/08/17 at 22:00 Metoprolol Tartrate (Lopressor) 25 mg BID GTB Last administered on 04/08/17 21 :30; Admin Dose 25 MG; Start 04/08/17 at 21:00 Multivit/Ca Carb/ B Cmplx/FA/Prenat (Shayla-Anuradha) 1 tab DAILY GTB Last administered on 04/09/17 10:36; Admin Dose 1 TAB; Start 04/09/17 at 09:00 Quetiapine Fumarate (Seroquel) 25 mg BID GTB Last administered on 04/09/17 22: 46; Admin Dose 25 MG; Start 04/08/17 at 21:00 Senna (Senokot) 2 tab BID PO ; Start 04/08/17 at 21:00 Trazodone HCl (Desyrel) 25 mg QHS PO Last administered on 04/10/17 00:32; Admin Dose 25 MG; Start 04/08/17 at 21:00 Insulin Detemir (Levemir) 5 unit BID SC Last administered on 04/09/17 21:54; Admin Dose 5 UNIT; Start 04/08/17 at 22:00 Acetaminophen (Tylenol Tab) 650 mg Q4H PRN PO PAIN AND OR ELEVATED TEMP; Start 04/08/17 at 19:30 Diagnostic Test (Pha) (Accu-Chek) 1 ea 02 XX Last administered on 04/10/17 02: 00; Admin Dose 1 EA; Start 04/09/17 at 02:00 Morphine Sulfate (morphine) 2 mg Q4H PRN IV PAIN LEVEL 8-10; Start 04/08/17 at 19:30 Miscellaneous Information 1 ea NOTE XX ; Start 04/08/17 at 20:00 Glucose (Glutose) 15 gm Q15M PRN PO DECREASED GLUCOSE; Start 04/08/17 at 20:00 Glucose (Glutose) 22.5 gm Q15M PRN PO DECREASED GLUCOSE; Start 04/08/17 at 20: 00 Dextrose (D50w Syringe) 25 ml Q15M PRN IV DECREASED GLUCOSE; Start 04/08/17 at 20:00 Dextrose (D50w Syringe) 50 ml Q15M PRN IV DECREASED GLUCOSE; Start 04/08/17 at 20:00 Glucagon (Glucagen) 1 mg Q15M PRN IM DECREASED GLUCOSE; Start 04/08/17 at 20:00 Glucose 15 gm 15 gm Q15M PRN BUCCAL DECREASED GLUCOSE; Start 04/08/17 at 20:00 Meropenem 100 ml @ 200 mls/hr Q12 IVPB Last administered on 04/09/17 21:42; Admin Dose 200 MLS/HR; Start 04/08/17 at 22:30 Norepinephrine 16 mg/Dextrose 500 ml @ 1.87 mls/hr TITRATE IV Last administered on 04/09/17 21:41; Admin Dose 22.5 MLS/HR; Start 04/09/17 at 09:00 Levofloxacin/ Dextrose (Levaquin 250 Mg/ D5W 50 ml (Pmx)) 50 ml @ 50 mls/hr Q24H IVPB Last administered on 04/10/17 06:09; Admin Dose 50 MLS/HR; Start at 07:00 Insulin Aspart (Novolog Insulin Pen) NOVOLOG *MODERATE* ALGORITHM Q6 SC Last administered on 04/09/17 17:55; Admin Dose 2 UNIT; Start 04/09/17 at 12:00 Collagenase (Santyl) 1 applic DAILY TOP Last administered on 04/09/17 16:00; Admin Dose 1 APPLIC; Start 04/09/17 at 14:00 Collagenase 1 applic 1 applic DAILY PRN TOP WHEN SOILED; Start 04/09/17 at 13: 00 Potassium Phosphate 20 meq/ Sodium Chloride 254.5455 ml @ 63.636 m... ONCE ONCE IVPB ; Start 04/10/17 at 08:30; Stop 04/10/17 at 12:29 Vancomycin HCl/ Sodium Chloride (Vancocin/NS) 250 ml @ 83.333 mls/ hr 12 IVPB ; Start 04/10/17 at 12:00; Stop 04/10/17 at 23:00 VARINDER JULES NP Apr 10, 2017 09:52
--- NOTE | 2017-04-10 09:52 | RADRPT ---
PROCEDURE: XR Chest 1 View. CLINICAL INDICATION: Shortness of breath TECHNIQUE: AP view of the chest was obtained. COMPARISON: April 08, 2017 FINDINGS: The heart size is within normal limits. Calcified atherosclerosis is noted in the aorta. Tracheosto my tube is stable and appears in grossly appropriate location. Right-sided dialysis catheter is unc hanged. Median sternotomy wires and surgical clips overlie the heart. Central pulmonary vascular c ongestion and interstitial prominence in both lungs is unchanged. Patchy infiltrates throughout the right lung and in the left lower lobe are stable and may be combined with small pleural effusions. The osseous structures are osteopenic, but appear grossly intact. IMPRESSION: Calcified atherosclerosis in the aorta. Stable central pulmonary vascular congestion and interstitial prominence in both lungs. Stable patchy infiltrates throughout the right lung and in the left lower lobe, possibly combined wi th small pleural effusion. RPTAT: AA .Kishore Lucero MD, Date Time Electronically viewed and signed by .Kishore Lucero MD, on 04/10/2017 09:52 .P/
--- NOTE | 2017-04-10 11:12 | PN ---
Date/Time of Note Date/Time of Note DATE: 04/10/17 TIME: 11:11 Assessment/Plan VTE Prophylaxis VTE Prophylaxis Intervention: other Lines/Catheters IV C[facility] Type [facility] [facility] Urinary Cath still in place: Yes Reason Cath still needed: skin wounds contaminated by urine Assessment/Plan Chief Complaint/Hosp Course 1. Sepsis. Source unknown. The patient will undergo septic workup including urine culture, blood culture and sputum culture. We will empirically start her on IV vancomycin and cefepime. Dr. Rutherford will be called from an infectious disease standpoint. The patient due to fluid overload is not a candidate of IV fluid bolus. Patient also has end stage disease and apparently is in congestive heart failure. The patient's echocardiogram done in February 2017 revealed EF of only 40%. 2. Coronary artery disease with systolic heart failure. Continue hemodialysis to remove fluids. 3. Coronary artery disease, status post coronary artery bypass graft. No active issue. 4. Diabetes. We will put patient on sliding scale insulin. 5. Respiratory failure. Continue vent support. Will obtain a pulmonary consult from [facility]. 6. Hypothyroidism. Will continue Synthroid. 7. Anal cancer with recent rectal bleed. Will continue to monitor H and H. No active intervention at this time due to patient's multiple comorbidities. 8. History of pulseless electrical activity with possible anoxic encephalopathy. Will continue to monitor. 9. History of GI bleed. Will continue proton pump inhibitor. 10. Dyslipidemia. Continue statins. 11. Anemia Transfuse 2u pRBC Problems: Subjective 24 Hr Interval Summary Free Text/Dictation Patient remain sedated and intubated Exam/Review of Systems Vital Signs Vitals Vital Signs Date Time Temp Pulse Resp B/P Pulse Ox O2 Delivery O2 Flow Rate FiO2 04/10/17 08:45 93 14 99/62 100 04/10/17 08:30 Mechanical Ventilator 04/10/17 08:00 98.3 04/10/17 08:00 40 Intake and Output 04/09/17 04/09/17 04/10/17 15:00 23:00 07:00 Intake Total 1082.38 ml 587.5 ml 536.74 ml Output Total 3010 ml 0 ml 0 ml Balance -1927.62 ml 587.5 ml 536.74 ml Exam Constitutional: well developed Head: atraumatic, normocephalic Neck: supple Respiratory: diminished breath sounds Cardiovascular: regular rate and rhythm Gastrointestinal: non-tender, soft Extremities: normal pulses Results Result Diagram: 04/10/17 0500 04/10/17 0500 Results 24 hrs Laboratory Tests Test 04/09/17 17:50 04/09/17 21:51 04/10/17 00:39 04/10/17 05:00 Bedside Glucose 175 131 149 White Blood Count 24.1 H Red Blood Count 2.50 L Hemoglobin 7.6 L Hematocrit 23.4 L Mean Corpuscular Volume 93.6 Mean Corpuscular Hemoglobin 30.4 Mean Corpuscular Hemoglobin Concent 32.5 Red Cell Distribution Width 22.1 H Platelet Count 99 L Mean Platelet Volume 10.2 Neutrophils % 66.0 Band Neutrophils % 31.0 H Lymphocytes % 3.0 L Eosinophils % Neutrophils # 15.9 H Lymphocytes # 0.7 L Eosinophils # Anisocytosis 1+ Sodium Level 134 L Potassium Level 3.1 L Chloride Level 99 Carbon Dioxide Level 26 Anion Gap 12 Blood Urea Nitrogen 37 #H Creatinine 1.91 H Glucose Level 133 Calcium Level 7.8 L Phosphorus Level 1.6 L Magnesium Level 2.0 Random Vancomycin Level 8.2 Test 04/10/17 06:10 04/10/17 09:49 Bedside Glucose 124 132 Medications Medications Current Medications Atorvastatin Calcium (Lipitor) 20 mg QHS GTB Last administered on 04/09/17 21: 43; Admin Dose 20 MG; Start 04/08/17 at 21:00 Acetaminophen/ Hydrocodone Bitart ([place] (5/325)) 1 tab Q6H PRN GTB SEVERE PAIN LEVEL 7-10; Start 04/08/17 at 19:30 Albuterol/ Ipratropium (Duoneb) 3 ml Q2H PRN NEB SHORTNESS OF BREATH; Start at 19:30 Lansoprazole (Prevacid) 30 mg DAILY@06 GTB Last administered on 04/10/17 06:08 ; Admin Dose 30 MG; Start 04/09/17 at 06:00 Levothyroxine Sodium (Synthroid) 125 mcg DAILY@06 GTB Last administered on 04/10 06:08; Admin Dose 125 MCG; Start 04/09/17 at 06:00 Lisinopril (Zestril) 2.5 mg BID GTB ; Start 04/08/17 at 21:00; Status Future Hold Metoprolol Tartrate (Lopressor) 25 mg BID GTB Last administered on 04/08/17 21 :30; Admin Dose 25 MG; Start 04/08/17 at 21:00; Status Future Hold Multivit/Ca Carb/ B Cmplx/FA/Prenat (Shayla-Anuradha) 1 tab DAILY GTB Last administered on 04/10/17 09:44; Admin Dose 1 TAB; Start 04/09/17 at 09:00 Quetiapine Fumarate (Seroquel) 25 mg BID GTB Last administered on 04/10/17 09: 44; Admin Dose 25 MG; Start 04/08/17 at 21:00 Trazodone HCl (Desyrel) 25 mg QHS PO Last administered on 04/10/17 00:32; Admin Dose 25 MG; Start 04/08/17 at 21:00 Insulin Detemir (Levemir) 5 unit BID SC Last administered on 04/10/17 09:50; Admin Dose 5 UNIT; Start 04/08/17 at 22:00 Acetaminophen (Tylenol Tab) 650 mg Q4H PRN PO PAIN AND OR ELEVATED TEMP; Start 04/08/17 at 19:30 Diagnostic Test (Pha) (Accu-Chek) 1 ea 02 XX Last administered on 04/10/17 02: 00; Admin Dose 1 EA; Start 04/09/17 at 02:00 Morphine Sulfate (morphine) 2 mg Q4H PRN IV PAIN LEVEL 8-10; Start 04/08/17 at 19:30 Miscellaneous Information 1 ea NOTE XX ; Start 04/08/17 at 20:00 Glucose (Glutose) 15 gm Q15M PRN PO DECREASED GLUCOSE; Start 04/08/17 at 20:00 Glucose (Glutose) 22.5 gm Q15M PRN PO DECREASED GLUCOSE; Start 04/08/17 at 20: 00 Dextrose (D50w Syringe) 25 ml Q15M PRN IV DECREASED GLUCOSE; Start 04/08/17 at 20:00 Dextrose (D50w Syringe) 50 ml Q15M PRN IV DECREASED GLUCOSE; Start 04/08/17 at 20:00 Glucagon (Glucagen) 1 mg Q15M PRN IM DECREASED GLUCOSE; Start 04/08/17 at 20:00 Glucose 15 gm 15 gm Q15M PRN BUCCAL DECREASED GLUCOSE; Start 04/08/17 at 20:00 Meropenem 100 ml @ 200 mls/hr Q12 IVPB Last administered on 04/10/17 09:44; Admin Dose 200 MLS/HR; Start 04/08/17 at 22:30 Norepinephrine 16 mg/Dextrose 500 ml @ 1.87 mls/hr TITRATE IV Last administered on 04/09/17 21:41; Admin Dose 22.5 MLS/HR; Start 04/09/17 at 09:00 Levofloxacin/ Dextrose (Levaquin 250 Mg/ D5W 50 ml (Pmx)) 50 ml @ 50 mls/hr Q24H IVPB Last administered on 04/10/17 06:09; Admin Dose 50 MLS/HR; Start at 07:00 Insulin Aspart (Novolog Insulin Pen) NOVOLOG *MODERATE* ALGORITHM Q6 SC Last administered on 04/09/17 17:55; Admin Dose 2 UNIT; Start 04/09/17 at 12:00 Collagenase (Santyl) 1 applic DAILY TOP Last administered on 04/10/17 09:46; Admin Dose 1 APPLIC; Start 04/09/17 at 14:00 Collagenase 1 applic 1 applic DAILY PRN TOP WHEN SOILED; Start 04/09/17 at 13: 00 Potassium Phosphate 20 meq/ Sodium Chloride 254.5455 ml @ 63.636 m... ONCE ONCE IVPB Last administered on 04/10/17 09:44; Admin Dose 63.636 MLS/HR; Start 04/10/17 at 08:30; Stop 04/10/17 at 12:29 Vancomycin HCl/ Sodium Chloride (Vancocin/NS) 250 ml @ 83.333 mls/ hr 12 IVPB ; Start 04/10/17 at 12:00; Stop 04/10/17 at 23:00 KETAN VELEZ Apr 10, 2017 11:12
[2017-04-10] MEDS ORDERED: VANCOMYCIN 1.25 GM in SOD CHLORIDE 0.9% 250 ML IVPB SCH (12:00)
--- NOTE | 2017-04-10 13:17 | CONS ---
Date/Time of Note Date/Time of Note DATE: 04/10/17 TIME: 13:16 Assessment/Plan Assessment/Plan Chief Complaint/Hosp Course d/w [facility]. emr reviewed. Problems: Consultation Date/Type/Reason Admit Date/Time Apr 08, 2017 at 16:19 Initial Consult Date 04/09/17 Type of Consultation: Infectious Disease Referring Provider: IVAN MALLOY MD Exam/Review of Systems Vital Signs Vitals Vital Signs Date Time Temp Pulse Resp B/P Pulse Ox O2 Delivery O2 Flow Rate FiO2 04/10/17 08:45 93 14 99/62 100 04/10/17 08:30 Mechanical Ventilator 04/10/17 08:00 98.3 04/10/17 08:00 40 Intake and Output 04/09/17 04/09/17 04/10/17 15:00 23:00 07:00 Intake Total 1082.38 ml 587.5 ml 536.74 ml Output Total 3010 ml 0 ml 0 ml Balance -1927.62 ml 587.5 ml 536.74 ml Results Result Diagram: 04/10/17 0500 04/10/17 0500 Results 24 hrs Laboratory Tests Test 04/09/17 17:50 04/09/17 21:51 04/10/17 00:39 04/10/17 05:00 Bedside Glucose 175 131 149 White Blood Count 24.1 H Red Blood Count 2.50 L Hemoglobin 7.6 L Hematocrit 23.4 L Mean Corpuscular Volume 93.6 Mean Corpuscular Hemoglobin 30.4 Mean Corpuscular Hemoglobin Concent 32.5 Red Cell Distribution Width 22.1 H Platelet Count 99 L Mean Platelet Volume 10.2 Neutrophils % 66.0 Band Neutrophils % 31.0 H Lymphocytes % 3.0 L Eosinophils % Neutrophils # 15.9 H Lymphocytes # 0.7 L Eosinophils # Anisocytosis 1+ Sodium Level 134 L Potassium Level 3.1 L Chloride Level 99 Carbon Dioxide Level 26 Anion Gap 12 Blood Urea Nitrogen 37 #H Creatinine 1.91 H Glucose Level 133 Calcium Level 7.8 L Phosphorus Level 1.6 L Magnesium Level 2.0 Random Vancomycin Level 8.2 Test 04/10/17 06:10 04/10/17 09:49 04/10/17 13:08 Bedside Glucose 124 132 172 Medications Medications Current Medications Atorvastatin Calcium (Lipitor) 20 mg QHS GTB Last administered on 04/09/17 21: 43; Admin Dose 20 MG; Start 04/08/17 at 21:00 Acetaminophen/ Hydrocodone Bitart ([place] (5/325)) 1 tab Q6H PRN GTB SEVERE PAIN LEVEL 7-10; Start 04/08/17 at 19:30 Albuterol/ Ipratropium (Duoneb) 3 ml Q2H PRN NEB SHORTNESS OF BREATH; Start at 19:30 Lansoprazole (Prevacid) 30 mg DAILY@06 GTB Last administered on 04/10/17 06:08 ; Admin Dose 30 MG; Start 04/09/17 at 06:00 Levothyroxine Sodium (Synthroid) 125 mcg DAILY@06 GTB Last administered on 04/10 06:08; Admin Dose 125 MCG; Start 04/09/17 at 06:00 Lisinopril (Zestril) 2.5 mg BID GTB ; Start 04/08/17 at 21:00; Status Future Hold Metoprolol Tartrate (Lopressor) 25 mg BID GTB Last administered on 04/08/17 21 :30; Admin Dose 25 MG; Start 04/08/17 at 21:00; Status Future Hold Multivit/Ca Carb/ B Cmplx/FA/Prenat (Shayla-Anuradha) 1 tab DAILY GTB Last administered on 04/10/17 09:44; Admin Dose 1 TAB; Start 04/09/17 at 09:00 Quetiapine Fumarate (Seroquel) 25 mg BID GTB Last administered on 04/10/17 09: 44; Admin Dose 25 MG; Start 04/08/17 at 21:00 Trazodone HCl (Desyrel) 25 mg QHS PO Last administered on 04/10/17 00:32; Admin Dose 25 MG; Start 04/08/17 at 21:00 Insulin Detemir (Levemir) 5 unit BID SC Last administered on 04/10/17 09:50; Admin Dose 5 UNIT; Start 04/08/17 at 22:00 Acetaminophen (Tylenol Tab) 650 mg Q4H PRN PO PAIN AND OR ELEVATED TEMP; Start 04/08/17 at 19:30 Diagnostic Test (Pha) (Accu-Chek) 1 ea 02 XX Last administered on 04/10/17 02: 00; Admin Dose 1 EA; Start 04/09/17 at 02:00 Morphine Sulfate (morphine) 2 mg Q4H PRN IV PAIN LEVEL 8-10; Start 04/08/17 at 19:30 Miscellaneous Information 1 ea NOTE XX ; Start 04/08/17 at 20:00 Glucose (Glutose) 15 gm Q15M PRN PO DECREASED GLUCOSE; Start 04/08/17 at 20:00 Glucose (Glutose) 22.5 gm Q15M PRN PO DECREASED GLUCOSE; Start 04/08/17 at 20: 00 Dextrose (D50w Syringe) 25 ml Q15M PRN IV DECREASED GLUCOSE; Start 04/08/17 at 20:00 Dextrose (D50w Syringe) 50 ml Q15M PRN IV DECREASED GLUCOSE; Start 04/08/17 at 20:00 Glucagon (Glucagen) 1 mg Q15M PRN IM DECREASED GLUCOSE; Start 04/08/17 at 20:00 Glucose 15 gm 15 gm Q15M PRN BUCCAL DECREASED GLUCOSE; Start 04/08/17 at 20:00 Meropenem 100 ml @ 200 mls/hr Q12 IVPB Last administered on 04/10/17 09:44; Admin Dose 200 MLS/HR; Start 04/08/17 at 22:30 Norepinephrine 16 mg/Dextrose 500 ml @ 1.87 mls/hr TITRATE IV Last administered on 04/09/17 21:41; Admin Dose 22.5 MLS/HR; Start 04/09/17 at 09:00 Levofloxacin/ Dextrose (Levaquin 250 Mg/ D5W 50 ml (Pmx)) 50 ml @ 50 mls/hr Q24H IVPB Last administered on 04/10/17 06:09; Admin Dose 50 MLS/HR; Start at 07:00 Insulin Aspart (Novolog Insulin Pen) NOVOLOG *MODERATE* ALGORITHM Q6 SC Last administered on 04/10/17 13:13; Admin Dose 4 UNIT; Start 04/09/17 at 12:00 Collagenase (Santyl) 1 applic DAILY TOP Last administered on 04/10/17 09:46; Admin Dose 1 APPLIC; Start 04/09/17 at 14:00 Collagenase 1 applic 1 applic DAILY PRN TOP WHEN SOILED; Start 6/24/17 at 13: 00 Vancomycin HCl/ Sodium Chloride (Vancocin/NS) 250 ml @ 83.333 mls/ hr 12 IVPB ; Start 04/10/17 at 12:00; Stop 04/10/17 at 23:00 PATY BOND MD Apr 10, 2017 13:16
[2017-04-10] MEDS: morphine 2 MG INJ IV PRN (13:36)
[2017-04-10] MEDS: EPOETIN 4000 UNITS/1 ML INJ (ESRD) SC SCH (16:31)
--- NOTE | 2017-04-10 16:55 | RADRPT ---
PROCEDURE: XR Chest. CLINICAL INDICATION: Check PICC line position. TECHNIQUE: Single frontal view. COMPARISON: Prior study done earlier the same day. FINDINGS: There is a left arm PICC line with the tip in the cavoatrial junction region. The tracheostomy tube and tunneled right internal jugular vein dialysis catheter remain in satisfactory position. There is air space disease in the right upper lobe consistent with pneumonia, unchanged. Mild atelectasis at the lung bases is unchanged. The heart is enlarged. There is calcification in the aorta consistent with atherosclerosis. There are sternal wires para There are small bilateral pleural effusions. There is no pneumothorax. IMPRESSION: 1. Satisfactory position of left arm PICC line. 2. No other change from the prior study done earlier the same day. RPTAT: QQ .Oli Kapoor MD, MD Date Time Electronically viewed and signed by .Oli Kapoor MD, MD on 04/10/2017 16:54 .R/
--- NOTE | 2017-04-10 16:55 | RADRPT ---
PROCEDURE: Ultrasound guidance for placement of needle in left upper extremity vein. CLINICAL INDICATION: Venous access. TECHNIQUE: Limited sonography of the left upper extremity was performed. Ultrasound images were recorded and s tored in the patient's medical record. COMPARISON: None. FINDINGS: The ultrasound images demonstrate a patent left upper extremity vein. The PICC line was inserted by the PICC line nurse. IMPRESSION: 1. Ultrasound guidance for a needle placement in a left upper extremity vein. 2. The left upper extremity vein is patent. RPTAT: QQ .Oli Kapoor MD, MD Date Time Electronically viewed and signed by .Oli Kapoor MD, MD on 04/10/2017 16:55 .R/
[2017-04-10] MEDS: ATORVASTATIN 20 MG TAB GTB SCH (21:34)
[2017-04-11] VITALS (95 sets, daily range): BP systolic 82–134; BP diastolic 45–90; PULSE 86–110; RESP 0–28
[2017-04-11] MEDS: ACCU-CHEK XX SCH (02:00)
[2017-04-11] MEDS: INSULIN ASPART [NOVOLOG] 3 ML PEN SC SCH ×6 (05:37→21:00)
[2017-04-11] MEDS: LEVOTHYROXINE 125 MCG TAB GTB SCH (06:10)
[2017-04-11] MEDS: LANSOPRAZOLE 30 MG CAP GTB SCH (06:10)
[2017-04-11] MEDS: LEVOFLOXACIN 250MG/D5W (PMX) 50 ML IVPB SCH (06:10)
[2017-04-11 06:27] LABS: ADD SCAN DIFF NO
[2017-04-11 06:36] LABS: ABNORMAL IP MESSAGE 1; BASOPHILS % 0.1 % (0.0-2.0); HEMATOCRIT 24.6 % (37.0-47.0); HEMOGLOBIN 8.1 g/dl (12.0-16.0); LYMPHOCYTES # 0.4 10^3/ul (0.8-2.9); MEAN CORPUSCULAR HEMOGLOBIN 29.8 pg (29.0-33.0); MEAN CORPUSCULAR HGB CONC 32.9 g/dl (32.0-37.0); MEAN CORPUSCULAR VOLUME 90.4 fl (82.0-101.0); MEAN PLATELET VOLUME 10.3 fl (7.4-10.4); MONOCYTE # 0.3 10^3/ul (0.3-0.9); MONOCYTES % 1.7 % (0.0-11.0); NEUTROPHIL # 16.4 10^3/ul (1.6-7.5); RED BLOOD COUNT 2.72 10^6/ul (4.20-5.40); RED CELL DISTRIBUTION WIDTH 22.6 % (11.5-14.5); WHITE BLOOD COUNT 17.2 10^3/ul (4.8-10.8)
[2017-04-11 06:38] LABS: PLATELET COUNT 75 10^3/UL (140-415)
[2017-04-11 06:39] LABS: NEUTROPHILS % 95.3 % (39.0-77.0)
[2017-04-11 07:05] LABS: CREATININE 1.65 mg/dl (0.44-1.00); MAGNESIUM 1.9 mg/dl (1.7-2.5); PHOSPHORUS 1.6 mg/dl (2.5-4.9); POTASSIUM 3.1 mmol/L (3.5-5.1)
[2017-04-11] MEDS ORDERED: POTASSIUM PHOSPHATE 40 MEQ in SOD CHLORIDE 0.9% 250 ML IVPB ONE (08:00)
[2017-04-11] MEDS ORDERED: POTASSIUM CHLORIDE 20 MEQ POWDER FOR ORAL SOLN GTB ONE (08:00)
[2017-04-11] MEDS: QUETIAPINE 25 MG TAB GTB SCH ×2 (09:05→21:49)
[2017-04-11] MEDS: MULTIVIT/CA CARB/B CMPLX/FA TAB GTB SCH (09:05)
[2017-04-11] MEDS: MEROPENEM 500 MG/100 ML (PMX) 100 ML IVPB SCH (09:06)
[2017-04-11] MEDS: INSULIN DETEMIR [LEVEMIR] 3ML CART SC SCH ×2 (09:07→21:39)
[2017-04-11] MEDS: BALSAM PERU/CASTOR OIL 60 GM TUBE TOP SCH ×2 (09:08→21:50)
[2017-04-11] MEDS: COLLAGENASE 30 GM TUBE TOP SCH (09:09)
[2017-04-11] MEDS ORDERED: POTASSIUM PHOSPHATE 40 MEQ in SOD CHLORIDE 0.9% 250 ML IVPB SCH (10:00)
--- NOTE | 2017-04-11 10:22 | PN ---
DATE: 04/11/2017 SUBJECTIVE: The patient remains critical on pressor support. The patient is receiving daily dialys is for volume removal. No other events noted. OBJECTIVE: VITAL SIGNS: Blood pressure 119/53, respiration 19, pulse 90, temperature 98.6. HEENT: Head is normocephalic. NECK: Supple. HEART: Regular rate. LUNGS: Show diminished breath sounds at base. ABDOMEN: Soft, nontender to palpation. No rebound or guarding. EXTREMITIES: Negative for clubbing, cyanosis. Positive edema. DERMATOLOGIC: No rashes. MUSCULOSKELETAL: No joint effusions. NEUROLOGIC: No change in exam. MEDICATIONS: Reviewed. LABORATORY DATA: White count 17.2, hemoglobin 8.1, hematocrit 24.6, platelet count is 75. Sodium 1 36, potassium 3.1, BUN 30, creatinine 1.65, calcium 8.0, phosphorus 1.6. ASSESSMENT AND PLAN: 1. End-stage renal disease. The patient is receiving daily dialysis for solute clearance and volum e removal. Plan for ultrafiltration today for 2 hours. 2. Anemia of chronic disease. Continue to monitor hemoglobin and hematocrit levels. Continue Epog en with hemodialysis. 3. Mineral bone disorder. The patient's hypophosphatemic. We will replete with potassium phosphat e 40 mEq. 4. Hyponatremia secondary to end-stage renal disease, improving. 5. Hypokalemia, repleted with potassium chloride. Will dialyze on a high potassium diet. 6. Septic shock, etiology is multifactorial secondary to urinary tract infection and pneumonia. Co ntinue current broad spectrum antibiotics, continue pressor support. 7. Ventilator dependent respiratory failure. Vent settings have been reviewed. ABG have been revi ewed. Continue to monitor. 8. Dysphagia status post percutaneous endoscopic gastrostomy. Continue tube feeding. 9. History of coronary artery disease. 10. Diabetes. Continue Accu-Cheks and sliding scale. 11. Hypothyroidism. Continue Synthroid. 12. History of anal cancer. 13. Acute on chronic encephalopathy, etiology is toxic metabolic. Continue to monitor. 14. Volume overload secondary to congestive heart failure, end-stage renal disease. Continue ultra filtration with dialysis. Please note I spent over 35 minutes of critical care time with this patient. Dictated By: ANJELICA BE/JUAN R Conf#: [id number] [facility]#: [id number]
--- NOTE | 2017-04-11 10:26 | CONS ---
Date/Time of Note Date/Time of Note DATE: 04/11/17 TIME: 10:22 Assessment/Plan Assessment/Plan Chief Complaint/Hosp Course - septic shock due to bacteremia (Klebsiella) - bacteremia due to klebsiella, likely from urinary tract - complicated UTI due to klebsiella - possible HCAP due to klebsiella and pseudomonas, with moderate pleural effusion - acute toxic metabolic encephalopathy - improving - rectal bleeding at [facility] prior to admission, possibly due to radiation proctitis. So far no bleeding after arrival - normocytic anemia - h/o anal CA s/p radiation - diverticulosis without diverticulitis on CT - mild ascites - bloody secretion via trach, possible due to CHF - pulm edema and volume overload - ESRD on HD, via permacath on R chest wall. 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 - ventilator dependent resp failure s/p tracheostomy placement - G tube dependent status - diarrhea; C diff negative - reported allergy to penicillin and sulfa drugs - reactions unknown recommendations: - pending results: blood cx x2 from HD catheter, urine urine, TTE - d/c empiric IV vancomycin - continue meropenem until cultures are finalized - change levofloxacin to gentamicin for pseudomonas, plus double coverage for klebsiella and another Gram negative in urine (may be klebsiella too) - recommend orthopedic/neurosurgery consult re; potential destructive change at the L4-5 disk space with apparent posterior retropulsion of portion of artificial disk (seen on CT) management d/w Pt's RN the critical care time I took to care for this Pt today was from [id number] to [id number] Problems: Consultation Date/Type/Reason Admit Date/Time Apr 08, 2017 at 16:19 Initial Consult Date 04/09/17 Type of Consultation: Infectious Disease Referring Provider: IVAN MALLOY MD 24 HR Interval Summary Subjective hx not possible: pt non-verbal, pt critical, pt critical status Exam/Review of Systems Vital Signs Vitals Vital Signs Date Time Temp Pulse Resp B/P Pulse Ox O2 Delivery O2 Flow Rate FiO2 04/11/17 09:16 92 24 100 40 04/11/17 04:00 119/53 Mechanical Ventilator 04/11/17 00:00 98.7 Intake and Output 04/10/17 04/10/17 04/11/17 15:00 23:00 07:00 Intake Total 1063.6344 ml 401.82 ml 355.54 ml Output Total 3300 ml 0 ml 0 ml Balance -2236.3656 ml 401.82 ml 355.54 ml Exam Constitutional: frail, non-verbal Psych: confusion Head: atraumatic, normocephalic Eyes: nl conjunctiva, nl lids ENMT: nl external ears & nose, nl nasal mucosa & septum Neck: other (trach) Respiratory: crackles/rales Cardiovascular: nl pulses, regular rate and rhythm Gastrointestinal: non-tender, soft Extremities: No edema Neurological: lethargic Skin: ecchymosis Results Result Diagram: 04/11/17 0530 04/11/17 0530 Results 24 hrs Laboratory Tests Test 04/10/17 13:08 04/10/17 17:55 04/10/17 21:30 04/11/17 00:29 Bedside Glucose 172 146 118 117 Test 04/11/17 02:14 04/11/17 05:24 04/11/17 05:30 04/11/17 05:36 Bedside Glucose 130 126 Lab Scanned Report BLOOD TRANSFUSION White Blood Count 17.2 #H Red Blood Count 2.72 L Hemoglobin 8.1 L Hematocrit 24.6 L Mean Corpuscular Volume 90.4 Mean Corpuscular Hemoglobin 29.8 Mean Corpuscular Hemoglobin Concent 32.9 Red Cell Distribution Width 22.6 H Platelet Count 75 #L Mean Platelet Volume 10.3 Neutrophils % 95.3 H Lymphocytes % 2.0 L Monocytes % 1.7 Eosinophils % 0.0 Basophils % 0.1 Nucleated Red Blood Cells % 0.0 Neutrophils # 16.4 H Lymphocytes # 0.4 L Monocytes # 0.3 Eosinophils # 0.0 Basophils # 0.0 Nucleated Red Blood Cells # 0.0 Differential Comment AUTO w/SCAN Sodium Level 136 Potassium Level 3.1 L Chloride Level 100 Carbon Dioxide Level 28 Anion Gap 11 Blood Urea Nitrogen 30 H Creatinine 1.65 H Glucose Level 122 Calcium Level 8.0 L Phosphorus Level 1.6 L Magnesium Level 1.9 Test 04/11/17 09:04 Bedside Glucose 123 Medications Medications Current Medications Atorvastatin Calcium (Lipitor) 20 mg QHS GTB Last administered on 04/10/17 21: 34; Admin Dose 20 MG; Start 04/08/17 at 21:00 Acetaminophen/ Hydrocodone Bitart ([place] (5/325)) 1 tab Q6H PRN GTB SEVERE PAIN LEVEL 7-10; Start 04/08/17 at 19:30 Albuterol/ Ipratropium (Duoneb) 3 ml Q2H PRN NEB SHORTNESS OF BREATH; Start at 19:30 Lansoprazole (Prevacid) 30 mg DAILY@06 GTB Last administered on 04/11/17 06:10 ; Admin Dose 30 MG; Start 04/09/17 at 06:00 Levothyroxine Sodium (Synthroid) 125 mcg DAILY@06 GTB Last administered on 04/11 06:10; Admin Dose 125 MCG; Start 04/09/17 at 06:00 Lisinopril (Zestril) 2.5 mg BID GTB ; Start 04/08/17 at 21:00; Status Future Hold Metoprolol Tartrate (Lopressor) 25 mg BID GTB Last administered on 04/08/17 21 :30; Admin Dose 25 MG; Start 04/08/17 at 21:00; Status Future Hold Multivit/Ca Carb/ B Cmplx/FA/Prenat (Shayla-Anuradha) 1 tab DAILY GTB Last administered on 04/11/17 09:05; Admin Dose 1 TAB; Start 04/09/17 at 09:00 Quetiapine Fumarate (Seroquel) 25 mg BID GTB Last administered on 04/11/17 09: 05; Admin Dose 25 MG; Start 04/08/17 at 21:00 Trazodone HCl (Desyrel) 25 mg QHS PO Last administered on 04/10/17 21:34; Admin Dose 25 MG; Start 04/08/17 at 21:00 Insulin Detemir (Levemir) 5 unit BID SC Last administered on 04/11/17 09:07; Admin Dose 5 UNIT; Start 04/08/17 at 22:00 Acetaminophen (Tylenol Tab) 650 mg Q4H PRN PO PAIN AND OR ELEVATED TEMP; Start 04/08/17 at 19:30 Morphine Sulfate (morphine) 2 mg Q4H PRN IV PAIN LEVEL 8-10 Last administered on 04/10/17 13:36; Admin Dose 2 MG; Start 04/08/17 at 19:30 Miscellaneous Information 1 ea NOTE XX ; Start 04/08/17 at 20:00 Glucose (Glutose) 15 gm Q15M PRN PO DECREASED GLUCOSE; Start 04/08/17 at 20:00 Glucose (Glutose) 22.5 gm Q15M PRN PO DECREASED GLUCOSE; Start 04/08/17 at 20: 00 Dextrose (D50w Syringe) 25 ml Q15M PRN IV DECREASED GLUCOSE; Start 04/08/17 at 20:00 Dextrose (D50w Syringe) 50 ml Q15M PRN IV DECREASED GLUCOSE; Start 04/08/17 at 20:00 Glucagon (Glucagen) 1 mg Q15M PRN IM DECREASED GLUCOSE; Start 04/08/17 at 20:00 Glucose 15 gm 15 gm Q15M PRN BUCCAL DECREASED GLUCOSE; Start 04/08/17 at 20:00 Meropenem 100 ml @ 200 mls/hr Q12 IVPB Last administered on 04/11/17 09:06; Admin Dose 200 MLS/HR; Start 04/08/17 at 22:30 Norepinephrine 16 mg/Dextrose 500 ml @ 1.87 mls/hr TITRATE IV Last administered on 04/11/17 07:10; Admin Dose 4.5 MLS/HR; Start 04/09/17 at 09:00 Levofloxacin/ Dextrose (Levaquin 250 Mg/ D5W 50 ml (Pmx)) 50 ml @ 50 mls/hr Q24H IVPB Last administered on 04/11/17 06:10; Admin Dose 50 MLS/HR; Start at 07:00 Collagenase (Santyl) 1 applic DAILY TOP Last administered on 04/11/17 09:09; Admin Dose 1 APPLIC; Start 04/09/17 at 14:00 Collagenase (Santyl) 1 applic DAILY PRN TOP WHEN SOILED; Start 04/09/17 at 13: 00 IV Flush (NS 10 ml) 10 ml PRN PRN IV FLUSH LINE; Start 04/10/17 at 16:30 Insulin Aspart NOVOLOG *MODERATE* ALGORITHM Q4 SC ; Start 04/11/17 at 09:00 Potassium Phosphate/Sodium Chloride (K Phos (Meq)/NS) 259.0909 ml @ 64.773 m... ONCE IVPB Last administered on 04/11/17t 09:16; Admin Dose 64.773 MLS/HR; Start 04/11/17 at 10:00; Stop 04/11/17 at 13:59 DOLORES SIERRA M.D. Apr 11, 2017 10:26
[2017-04-11] MEDS ORDERED: GENTAMICIN IV PER PHARMACY XX SCH (10:30)
--- NOTE | 2017-04-11 11:41 | CONS ---
Date/Time of Note Date/Time of Note DATE: 04/11/17 TIME: 11:37 Assessment/Plan Assessment/Plan Additional Assessment/Plan Anterior descending; AC of 14, tidal volume 500, PEEP of 5, 40% FiO2. Patient currently on Levophed at 2.4 mics per minute. Chest x-ray from today is pending. Assessment recommendations; 1. Patient admitted with sepsis from bilateral pneumonia. Clinically improving. 2. Chronic renal failure, on hemodialysis. 3. Chronic respiratory failure. 4. History of prior CABG. 5. Hypo-thyroidism. 6. History of diabetes. 7. Hypertension. 8. Generalized deconditioning. 9. Thrombocytopenia. Continue current treatment. Further recommendations to be made once chest x- ray is done. Consultation Date/Type/Reason Admit Date/Time Apr 08, 2017 at 16:19 Initial Consult Date 04/09/17 Type of Consultation: Pulmonary/critical care Referring Provider: IVAN MALLOY MD 24 HR Interval Summary Free Text/Dictation Patient condition remains stable. Has remained awake. Not requiring any pressor support. Patient on chronic ventilator support. General examination; elderly woman, on ventilator via tracheostomy, currently in no distress. Awake alert. Exam/Review of Systems Vital Signs Vitals Vital Signs Date Time Temp Pulse Resp B/P Pulse Ox O2 Delivery O2 Flow Rate FiO2 04/11/17 11:16 97 04/11/17 10:25 12 04/11/17 09:16 100 40 04/11/17 04:00 119/53 Mechanical Ventilator 04/11/17 00:00 98.7 Intake and Output 04/10/17 04/10/17 04/11/17 15:00 23:00 07:00 Intake Total 1063.6344 ml 401.82 ml 355.54 ml Output Total 3300 ml 0 ml 0 ml Balance -2236.3656 ml 401.82 ml 355.54 ml Exam HEENT exam; supple neck, no JVD. No lymphadenopathy. Midline trachea. No thyromegaly. Tracheostomy placed with clean insertion site. Pupils are small bilaterally. Chest exam; diminished but clear vessel. S1-S2 audible, no murmurs. Regular rhythm. There is a well-healed sternal scar. Abdomen examination; soft, no organomegaly. G-tube in place. Bowel sounds audible. Extremity exam; trace edema. Patient has a multiple ecchymosis involving all 4 extremities. TRANSIT COACH OPERATOR exam; patient is awake and follows simple commands but has severe generalized weakness. Results Result Diagram: 04/11/17 0530 04/11/17 0530 Results 24 hrs Laboratory Tests Test 04/10/17 13:08 04/10/17 17:55 04/10/17 21:30 04/11/17 00:29 Bedside Glucose 172 146 118 117 Test 04/11/17 02:14 04/11/17 05:24 04/11/17 05:30 04/11/17 05:36 Bedside Glucose 130 126 Lab Scanned Report BLOOD TRANSFUSION White Blood Count 17.2 #H Red Blood Count 2.72 L Hemoglobin 8.1 L Hematocrit 24.6 L Mean Corpuscular Volume 90.4 Mean Corpuscular Hemoglobin 29.8 Mean Corpuscular Hemoglobin Concent 32.9 Red Cell Distribution Width 22.6 H Platelet Count 75 #L Mean Platelet Volume 10.3 Neutrophils % 95.3 H Lymphocytes % 2.0 L Monocytes % 1.7 Eosinophils % 0.0 Basophils % 0.1 Nucleated Red Blood Cells % 0.0 Neutrophils # 16.4 H Lymphocytes # 0.4 L Monocytes # 0.3 Eosinophils # 0.0 Basophils # 0.0 Nucleated Red Blood Cells # 0.0 Differential Comment AUTO w/SCAN Sodium Level 136 Potassium Level 3.1 L Chloride Level 100 Carbon Dioxide Level 28 Anion Gap 11 Blood Urea Nitrogen 30 H Creatinine 1.65 H Glucose Level 122 Calcium Level 8.0 L Phosphorus Level 1.6 L Magnesium Level 1.9 Test 04/11/17 09:04 Bedside Glucose 123 Medications Medications Current Medications Atorvastatin Calcium (Lipitor) 20 mg QHS GTB Last administered on 04/10/17 21: 34; Admin Dose 20 MG; Start 04/08/17 at 21:00 Acetaminophen/ Hydrocodone Bitart ([place] (5/325)) 1 tab Q6H PRN GTB SEVERE PAIN LEVEL 7-10; Start 04/08/17 at 19:30 Albuterol/ Ipratropium (Duoneb) 3 ml Q2H PRN NEB SHORTNESS OF BREATH; Start at 19:30 Lansoprazole (Prevacid) 30 mg DAILY@06 GTB Last administered on 04/11/17 06:10 ; Admin Dose 30 MG; Start 04/09/17 at 06:00 Levothyroxine Sodium (Synthroid) 125 mcg DAILY@06 GTB Last administered on 04/11 06:10; Admin Dose 125 MCG; Start 04/09/17 at 06:00 Lisinopril (Zestril) 2.5 mg BID GTB ; Start 04/08/17 at 21:00; Status Future Hold Metoprolol Tartrate (Lopressor) 25 mg BID GTB Last administered on 04/08/17 21 :30; Admin Dose 25 MG; Start 04/08/17 at 21:00; Status Future Hold Multivit/Ca Carb/ B Cmplx/FA/Prenat (Shayla-Anuradha) 1 tab DAILY GTB Last administered on 04/11/17 09:05; Admin Dose 1 TAB; Start 04/09/17 at 09:00 Quetiapine Fumarate (Seroquel) 25 mg BID GTB Last administered on 04/11/17 09: 05; Admin Dose 25 MG; Start 04/08/17 at 21:00 Trazodone HCl (Desyrel) 25 mg QHS PO Last administered on 04/10/17 21:34; Admin Dose 25 MG; Start 04/08/17 at 21:00 Insulin Detemir (Levemir) 5 unit BID SC Last administered on 04/11/17 09:07; Admin Dose 5 UNIT; Start 04/08/17 at 22:00 Acetaminophen (Tylenol Tab) 650 mg Q4H PRN PO PAIN AND OR ELEVATED TEMP; Start 04/08/17 at 19:30 Morphine Sulfate (morphine) 2 mg Q4H PRN IV PAIN LEVEL 8-10 Last administered on 04/10/17 13:36; Admin Dose 2 MG; Start 04/08/17 at 19:30 Miscellaneous Information 1 ea NOTE XX ; Start 04/08/17 at 20:00 Glucose (Glutose) 15 gm Q15M PRN PO DECREASED GLUCOSE; Start 04/08/17 at 20:00 Glucose (Glutose) 22.5 gm Q15M PRN PO DECREASED GLUCOSE; Start 04/08/17 at 20: 00 Dextrose (D50w Syringe) 25 ml Q15M PRN IV DECREASED GLUCOSE; Start 04/08/17 at 20:00 Dextrose (D50w Syringe) 50 ml Q15M PRN IV DECREASED GLUCOSE; Start 04/08/17 at 20:00 Glucagon (Glucagen) 1 mg Q15M PRN IM DECREASED GLUCOSE; Start 04/08/17 at 20:00 Glucose 15 gm 15 gm Q15M PRN BUCCAL DECREASED GLUCOSE; Start 04/08/17 at 20:00 Meropenem 100 ml @ 200 mls/hr Q12 IVPB Last administered on 04/11/17 09:06; Admin Dose 200 MLS/HR; Start 04/08/17 at 22:30 Norepinephrine/ Dextrose (Levophed/D5W) 500 ml @ 1.87 mls/hr TITRATE IV Last administered on 04/11/17 07:10; Admin Dose 4.5 MLS/HR; Start 04/09/17 at 09:00 Collagenase (Santyl) 1 applic DAILY TOP Last administered on 04/11/17 09:09; Admin Dose 1 APPLIC; Start 04/09/17 at 14:00 Collagenase (Santyl) 1 applic DAILY PRN TOP WHEN SOILED; Start 04/09/17 at 13: 00 IV Flush (NS 10 ml) 10 ml PRN PRN IV FLUSH LINE; Start 04/10/17 at 16:30 Insulin Aspart NOVOLOG *MODERATE* ALGORITHM Q4 SC ; Start 04/11/17 at 09:00 Potassium Phosphate/Sodium Chloride (K Phos (Meq)/NS) 259.0909 ml @ 64.773 m... ONCE IVPB Last administered on 04/11/17 09:16; Admin Dose 64.773 MLS/HR; Start 04/11/17 at 10:00; Stop 04/11/17 at 13:59 Gentamicin Sulfate GENTAMICIN PER PHARMACY NOTE XX ; Start 04/11/17 at 10:30 Gentamicin Sulfate (Gentamicin) 100 ml @ 200 mls/hr ONCE ONCE IVPB ; Start at 14:00; Stop 04/11/17 at 14:29 BRIE HUDSON 26, 2017 11:41
[2017-04-11] MEDS ORDERED: GENTAMICIN 120 MG/NS (PMX) 100 ML IVPB ONE (14:00)
[2017-04-11] MEDS: EPOETIN 4000 UNITS/1 ML INJ (ESRD) SC SCH (15:17)
[2017-04-11] MEDS: morphine 2 MG INJ IV PRN (18:25)
[2017-04-11] MEDS: traZODone 50 MG TAB PO SCH (21:50)
[2017-04-11] MEDS: ATORVASTATIN 20 MG TAB GTB SCH (21:50)
[2017-04-12] VITALS (102 sets, daily range): BP systolic 78–128; BP diastolic 42–81; PULSE 71–115; RESP 0–25
[2017-04-12] MEDS: INSULIN ASPART [NOVOLOG] 3 ML PEN SC SCH ×6 (01:00→21:00)
--- NOTE | 2017-04-12 03:27 | PN ---
DATE: 04/11/2017 LOCATION: ICU SUBJECTIVE: Follow up on septic shock, respiratory failure, coronary artery disease, systolic heart failure, diabetes, end-stage renal disease, anal cancer, history of pulseless electrical activity w ith possible anoxic encephalopathy. The patient is breathing comfortably on vent, currently is on S MA of 14, FIO2 of 35%, tidal volume 500, PEEP of 5. Patient also remained on norepinephrine to supp ort blood pressure. The patient, however, is more awake and responsive. No rectal bleed today. No reported temperature spike today. No reported vomiting. The patient has improvement in the leg ed dale. No seizures. PHYSICAL EXAMINATION: GENERAL: The patient is awake and responsive. VITAL SIGNS: Temperature 98.2, pulse 95, respirations 14, blood pressure 100/55, O2 saturation 100% on FIO2 of 35%. HEENT: No eye discharge or redness. Extraocular movements intact. Nose and ears normal. Oropharyn x is clear. NECK: Tracheostomy in place. No mass. CHEST: Revealed diminished air entry at bases. No use of accessory muscles. CARDIOVASCULAR: S1, S2 normal. No murmur, gallop, or rub. ABDOMEN: Soft, nondistended, nontender. G-tube in place. EXTREMITIES: Less edema, no clubbing, no cyanosis. NEUROLOGIC: The patient is awake and responsive. LABORATORY DATA: Done today WBC 17.2, hemoglobin 8.1, platelets 75. Sodium 136, potassium 3.1, BUN 30, creatinine 1.6, glucose 122, calcium 8, magnesium 1.9, glucose 156. IMPRESSION: 1. Septic shock pending blood culture and urine culture. Continue meropenem empirically. The raj ent did have Pseudomonas and Klebsiella growing in the sputum culture. The patient has been started on gentamicin in addition to meropenem 2. Respiratory failure. Continue vent support. 3. Diabetes mellitus. Blood sugar reasonably controlled. Continue sliding scale insulin. 4. Systolic heart failure. Continue hemodialysis for fluid removal. 5. End-stage renal disease. Continue hemodialysis. 6. Anoxic encephalopathy. No acute issues. 7. Anemia of chronic disease. Continue Epogen. 8. Hypothyroidism. Continue Synthroid. 9. Dyslipidemia. Continue Lipitor. 10. Possible history of psychosis. Continue Seroquel and trazodone. Plan of care discussed with nursing staff. We will do followup labs. The patient did receive phosp hate and potassium replacement. The patient remains critically ill. Will continue to monitor in IC U. Total critical care time spent 35 minutes. Dictated By: IVAN ARROYO/JUAN R Conf#: [id number] DID#: [id number]
[2017-04-12 06:08] LABS: ADD SCAN DIFF NO
[2017-04-12] MEDS: LANSOPRAZOLE 30 MG CAP GTB SCH (06:09)
[2017-04-12] MEDS: LEVOTHYROXINE 125 MCG TAB GTB SCH (06:09)
[2017-04-12 06:24] LABS: ABNORMAL IP MESSAGE 1; HEMATOCRIT 25.3 % (37.0-47.0); HEMOGLOBIN 8.2 g/dl (12.0-16.0); MEAN CORPUSCULAR HEMOGLOBIN 29.4 pg (29.0-33.0); MEAN CORPUSCULAR HGB CONC 32.4 g/dl (32.0-37.0); MEAN CORPUSCULAR VOLUME 90.7 fl (82.0-101.0); PLATELET COUNT 64 10^3/UL (140-415); RED BLOOD COUNT 2.79 10^6/ul (4.20-5.40); RED CELL DISTRIBUTION WIDTH 23.2 % (11.5-14.5); WHITE BLOOD COUNT 14.1 10^3/ul (4.8-10.8)
[2017-04-12 07:14] LABS: CALCIUM 7.9 mg/dl (8.4-10.2); CREATININE 1.44 mg/dl (0.44-1.00); MAGNESIUM 1.8 mg/dl (1.7-2.5); PHOSPHORUS 2.1 mg/dl (2.5-4.9); POTASSIUM 3.9 mmol/L (3.5-5.1)
[2017-04-12] MEDS ORDERED: POTASSIUM PHOSPHATE 20 MEQ in SOD CHLORIDE 0.9% 250 ML IVPB ONE (09:00)
[2017-04-12] MEDS: MEROPENEM 500 MG/100 ML (PMX) 100 ML IVPB SCH (09:29)
[2017-04-12] MEDS: MULTIVIT/CA CARB/B CMPLX/FA TAB GTB SCH (09:30)
[2017-04-12] MEDS: BALSAM PERU/CASTOR OIL 60 GM TUBE TOP SCH ×2 (09:30→21:41)
[2017-04-12] MEDS: COLLAGENASE 30 GM TUBE TOP SCH (09:30)
[2017-04-12] MEDS: QUETIAPINE 25 MG TAB GTB SCH ×2 (09:30→21:39)
[2017-04-12] MEDS: METOCLOPRAMIDE (1 MG/ML) 10 ML CUP PO SCH ×3 (09:30→22:19)
[2017-04-12] MEDS: INSULIN DETEMIR [LEVEMIR] 3ML CART SC SCH ×2 (09:34→21:44)
[2017-04-12] MEDS: HYDROCODONE/APAP (5/325) TAB GTB PRN ×2 (10:58→16:40)
[2017-04-12] MEDS: POVIDONE IODINE 10% 28.4 GM OINT TOP SCH (11:30)
--- NOTE | 2017-04-12 11:42 | CONS ---
Date/Time of Note Date/Time of Note DATE: 04/12/17 TIME: 11:39 Assessment/Plan Assessment/Plan Additional Assessment/Plan Ventilator setting; AC of 14, tidal volume 500, PEEP of 5, 35% FiO2. Patient currently on Levophed at 3.5 mics per minute. Chest x-ray from today is pending. Assessment recommendations; 1. Patient admitted with bilateral pneumonia and sepsis. Clinically improving gradually. 2. Multiple other comorbidities including history of hypo-thyroidism, chronic renal failure, chronic respiratory failure, diabetes, history of prior CABG. Status post G-tube and tracheostomy. Continue current treatment. Further recommendations to be made once chest x- rays done. Consultation Date/Type/Reason Admit Date/Time Apr 08, 2017 at 16:19 Initial Consult Date 04/09/17 Type of Consultation: Pulmonary/critical care Referring Provider: IVAN MALLOY MD 24 HR Interval Summary Free Text/Dictation Patient condition remains critical but stable she remains awake and alert. Follows simple commands. Has remained hemodynamically stable although requiring very low-dose Levophed currently. General exam is; elderly woman, on ventilator via tracheostomy currently in no distress. Exam/Review of Systems Vital Signs Vitals Vital Signs Date Time Temp Pulse Resp B/P Pulse Ox O2 Delivery O2 Flow Rate FiO2 04/12/17 09:20 99 19 100 35 04/12/17 07:00 99/44 Mechanical Ventilator 04/12/17 04:00 98.7 Intake and Output 04/11/17 04/11/17 04/12/17 15:00 23:00 07:00 Intake Total 1401.2309 ml 333.34 ml 398.03 ml Output Total 2400 ml 10 ml Balance -998.7691 ml 323.34 ml 398.03 ml Exam HEENT exam; supple neck, positive JVD. No lymphadenopathy. Midline trachea. No thyromegaly. Tracheostomy placed with clean insertion site. Patient is edentulous. Has bilateral intraocular lens implants. Chest examined; diminished but clear breath sounds. S1-S2 audible, no murmurs. Regular rhythm. There is a well-healed sternal scar. Abdomen examination; soft, nontender. Nondistended. G-tube in place. No organomegaly. Bowel sounds audible. Extremity exam; 2+ edema in lower extremities. Patient does have scattered ecchymosis involving all 4 extremities. Pulses 1+ bilaterally. LOG BUYER exam; patient awake alert follows commands moves all 4 extremities on command but has severe generalized muscular weakness. Results Result Diagram: 04/12/17 0510 04/12/17 0510 Results 24 hrs Laboratory Tests Test 04/11/17 13:14 04/11/17 17:20 04/11/17 21:31 04/12/17 01:29 Bedside Glucose 184 156 121 148 Test 04/12/17 05:10 04/12/17 05:20 04/12/17 09:32 White Blood Count 14.1 H Red Blood Count 2.79 L Hemoglobin 8.2 L Hematocrit 25.3 L Mean Corpuscular Volume 90.7 Mean Corpuscular Hemoglobin 29.4 Mean Corpuscular Hemoglobin Concent 32.4 Red Cell Distribution Width 23.2 H Platelet Count 64 L Mean Platelet Volume 11.0 H Neutrophils % Eosinophils % Neutrophils # Eosinophils # Sodium Level 135 Potassium Level 3.9 Chloride Level 100 Carbon Dioxide Level 27 Anion Gap 12 Blood Urea Nitrogen 28 H Creatinine 1.44 H Glucose Level 151 Calcium Level 7.9 L Phosphorus Level 2.1 L Magnesium Level 1.8 Bedside Glucose 146 225 H Medications Medications Current Medications Atorvastatin Calcium (Lipitor) 20 mg QHS GTB Last administered on 04/11/17 21: 50; Admin Dose 20 MG; Start 04/08/17 at 21:00 Acetaminophen/ Hydrocodone Bitart ([place] (5/325)) 1 tab Q6H PRN GTB SEVERE PAIN LEVEL 7-10 Last administered on 04/12/17 10:58; Admin Dose 1 TAB; Start at 19:30 Albuterol/ Ipratropium (Duoneb) 3 ml Q2H PRN NEB SHORTNESS OF BREATH; Start at 19:30 Lansoprazole (Prevacid) 30 mg DAILY@06 GTB Last administered on 04/12/17 06:09 ; Admin Dose 30 MG; Start 04/09/17 at 06:00 Levothyroxine Sodium (Synthroid) 125 mcg DAILY@06 GTB Last administered on 04/12 06:09; Admin Dose 125 MCG; Start 04/09/17 at 06:00 Lisinopril (Zestril) 2.5 mg BID GTB ; Start 04/08/17 at 21:00; Status Future Hold Metoprolol Tartrate (Lopressor) 25 mg BID GTB Last administered on 04/08/17 21 :30; Admin Dose 25 MG; Start 04/08/17 at 21:00; Status Future Hold Multivit/Ca Carb/ B Cmplx/FA/Prenat (Shayla-Anuradha) 1 tab DAILY GTB Last administered on 04/12/17 09:30; Admin Dose 1 TAB; Start 04/09/17 at 09:00 Quetiapine Fumarate (Seroquel) 25 mg BID GTB Last administered on 04/12/17 09: 30; Admin Dose 25 MG; Start 04/08/17 at 21:00 Trazodone HCl (Desyrel) 25 mg QHS PO Last administered on 04/11/17 21:50; Admin Dose 25 MG; Start 04/08/17 at 21:00 Insulin Detemir (Levemir) 5 unit BID SC Last administered on 04/12/17 09:34; Admin Dose 5 UNIT; Start 04/08/17 at 22:00 Acetaminophen (Tylenol Tab) 650 mg Q4H PRN PO PAIN AND OR ELEVATED TEMP; Start 04/08/17 at 19:30 Morphine Sulfate (morphine) 2 mg Q4H PRN IV PAIN LEVEL 8-10 Last administered on 04/11/17 18:25; Admin Dose 2 MG; Start 04/08/17 at 19:30 Miscellaneous Information 1 ea NOTE XX ; Start 04/08/17 at 20:00 Glucose (Glutose) 15 gm Q15M PRN PO DECREASED GLUCOSE; Start 04/08/17 at 20:00 Glucose (Glutose) 22.5 gm Q15M PRN PO DECREASED GLUCOSE; Start 04/08/17 at 20: 00 Dextrose (D50w Syringe) 25 ml Q15M PRN IV DECREASED GLUCOSE; Start 04/08/17 at 20:00 Dextrose (D50w Syringe) 50 ml Q15M PRN IV DECREASED GLUCOSE; Start 04/08/17 at 20:00 Glucagon (Glucagen) 1 mg Q15M PRN IM DECREASED GLUCOSE; Start 04/08/17 at 20:00 Glucose 15 gm 15 gm Q15M PRN BUCCAL DECREASED GLUCOSE; Start 04/08/17 at 20:00 Norepinephrine/ Dextrose (Levophed/D5W) 500 ml @ 1.87 mls/hr TITRATE IV Last administered on 04/11/17 07:10; Admin Dose 4.5 MLS/HR; Start 04/09/17 at 09:00 Collagenase (Santyl) 1 applic DAILY TOP Last administered on 04/12/17 09:30; Admin Dose 1 APPLIC; Start 04/09/17 at 14:00 Collagenase (Santyl) 1 applic DAILY PRN TOP WHEN SOILED; Start 04/09/17 at 13: 00 IV Flush (NS 10 ml) 10 ml PRN PRN IV FLUSH LINE; Start 04/10/17 at 16:30 Insulin Aspart (Novolog Insulin Pen) NOVOLOG *MODERATE* ALGORITHM Q4 SC Last administered on 04/12/17 09:35; Admin Dose 6 UNIT; Start 04/11/17 at 09:00 Gentamicin Sulfate GENTAMICIN PER PHARMACY NOTE XX ; Start 04/11/17 at 10:30 Meropenem 100 ml @ 200 mls/hr DAILY IVPB Last administered on 04/12/17 09:29 ; Admin Dose 200 MLS/HR; Start 04/12/17 at 09:00 Potassium Phosphate/Sodium Chloride (K Phos (Meq)/NS) 254.5455 ml @ 63.636 m... ONCE ONCE IVPB Last administered on 04/12/17 10:57; Admin Dose 63.636 MLS/HR; Start 04/12/17 at 09:00; Stop 04/12/17 at 12:59 Metoclopramide HCl (Reglan Liq) 5 mg Q8 PO Last administered on 04/12/17 09:30 ; Admin Dose 5 MG; Start 04/12/17 at 08:30 Povidone Iodine (Povidone-Iodine) 1 applic DAILY TOP ; Start 04/12/17 at 11:30 BRIE HUDSON Apr 12, 2017 11:42
[2017-04-12 12:25] LABS: LYMPHOCYTES # 0.4 10^3/ul (0.8-2.9); MONOCYTE # 0.4 10^3/ul (0.3-0.9); NEUTROPHIL # 11.3 10^3/ul (1.6-7.5); PLATELET ESTIMATE PLT APPEAR DECREASED
--- NOTE | 2017-04-12 12:49 | CONS ---
Date/Time of Note Date/Time of Note DATE: 04/12/17 TIME: 12:49 Assessment/Plan Assessment/Plan Chief Complaint/Hosp Course - septic shock due to bacteremia (Klebsiella) - bacteremia due to klebsiella, likely from PNA - complicated UTI due to enterobacter - possible HCAP due to klebsiella and pseudomonas, with moderate pleural effusion - acute toxic metabolic encephalopathy - improving - rectal bleeding at [facility] prior to admission, possibly due to radiation proctitis. So far no bleeding after arrival - normocytic anemia - h/o anal CA s/p radiation - diverticulosis without diverticulitis on CT - mild ascites - bloody secretion via trach, possible due to CHF - pulm edema and volume overload - ESRD on HD, via permacath on R chest wall. 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 - ventilator dependent resp failure s/p tracheostomy placement - G tube dependent status - diarrhea; C diff negative - resolved - reported allergy to penicillin and sulfa drugs - reactions unknown recommendations: - pending results: blood cx x2 from HD catheter, TTE - continue meropenem until cultures are finalized - continue gentamicin for pseudomonas, plus double coverage for klebsiella and enterobacter - recommend orthopedic/neurosurgery consult re; potential destructive change at the L4-5 disk space with apparent posterior retropulsion of portion of artificial disk (seen on CT) Management d/w BOAT HOIST OPERATORANASTACIO Man and Dr. Thurston Critical care time spent: 30 min Problems: Consultation Date/Type/Reason Admit Date/Time Apr 08, 2017 at 16:19 Initial Consult Date 04/09/17 Type of Consultation: Infectious Disease Referring Provider: IVAN MALLOY MD 24 HR Interval Summary Free Text/Dictation Remains on low dosed levophed. Had n/v yesterday and reglan was restarted for nausea today. KUB was ordered per d/w nursing staff. Nods no to pain or SOB. Motions that she still has nausea. ROS limited due to pt being non-verbal and lethargic. Subjective hx not possible: pt non-verbal, pt critical status Exam/Review of Systems Vital Signs Vitals Vital Signs Date Time Temp Pulse Resp B/P Pulse Ox O2 Delivery O2 Flow Rate FiO2 04/12/17 12:00 96 04/12/17 09:20 19 100 35 04/12/17 07:00 99/44 Mechanical Ventilator 04/12/17 04:00 98.7 Intake and Output 04/11/17 04/11/17 04/12/17 15:00 23:00 07:00 Intake Total 1401.2309 ml 333.34 ml 398.03 ml Output Total 2400 ml 10 ml Balance -998.7691 ml 323.34 ml 398.03 ml Exam Constitutional: alert, frail, non-verbal Head: atraumatic, normocephalic Eyes: nl conjunctiva, nl lids Neck: other (tracheostomy midline) Respiratory: diminished breath sounds, other (R chest wall HD catheter intact) Cardiovascular: nl pulses, regular rate and rhythm Gastrointestinal: bowel sounds, other (G-tube in place with tube feeds), soft Genitourinary - Female: other (Leonard catheter intact) Musculoskeletal: swelling Extremities: edema (anasarca), pitting pedal edema Neurological: lethargic but more alert. Nods to simple questions. Skin: ecchymosis, wounds (see nurse note and photo in chart for details; R great toe tip eschar and dressing on R heel c/d/i) Results Result Diagram: 04/12/17 0510 04/12/17 0510 Results 24 hrs Laboratory Tests Test 04/11/17 13:14 04/11/17 17:20 04/11/17 21:31 04/12/17 01:29 Bedside Glucose 184 156 121 148 Test 04/12/17 05:10 04/12/17 05:20 04/12/17 09:32 White Blood Count 14.1 H Red Blood Count 2.79 L Hemoglobin 8.2 L Hematocrit 25.3 L Mean Corpuscular Volume 90.7 Mean Corpuscular Hemoglobin 29.4 Mean Corpuscular Hemoglobin Concent 32.4 Red Cell Distribution Width 23.2 H Platelet Count 64 L Mean Platelet Volume 11.0 H Neutrophils % 80.0 H Band Neutrophils % 14.0 H Lymphocytes % 3.0 L Monocytes % 3.0 Eosinophils % Neutrophils # 11.3 H Lymphocytes # 0.4 L Monocytes # 0.4 Eosinophils # Platelet Estimate PLT APPEAR DECREASED Sodium Level 135 Potassium Level 3.9 Chloride Level 100 Carbon Dioxide Level 27 Anion Gap 12 Blood Urea Nitrogen 28 H Creatinine 1.44 H Glucose Level 151 Calcium Level 7.9 L Phosphorus Level 2.1 L Magnesium Level 1.8 Bedside Glucose 146 225 H Medications Medications Current Medications Atorvastatin Calcium (Lipitor) 20 mg QHS GTB Last administered on 04/11/17 21: 50; Admin Dose 20 MG; Start 04/08/17 at 21:00 Acetaminophen/ Hydrocodone Bitart ([place] (5/325)) 1 tab Q6H PRN GTB SEVERE PAIN LEVEL 7-10 Last administered on 04/12/17 10:58; Admin Dose 1 TAB; Start at 19:30 Albuterol/ Ipratropium (Duoneb) 3 ml Q2H PRN NEB SHORTNESS OF BREATH; Start at 19:30 Lansoprazole (Prevacid) 30 mg DAILY@06 GTB Last administered on 04/12/17 06:09 ; Admin Dose 30 MG; Start 04/09/17 at 06:00 Levothyroxine Sodium (Synthroid) 125 mcg DAILY@06 GTB Last administered on 04/12 06:09; Admin Dose 125 MCG; Start 04/09/17 at 06:00 Lisinopril (Zestril) 2.5 mg BID GTB ; Start 04/08/17 at 21:00; Status Future Hold Metoprolol Tartrate (Lopressor) 25 mg BID GTB Last administered on 04/08/17 21 :30; Admin Dose 25 MG; Start 04/08/17 at 21:00; Status Future Hold Multivit/Ca Carb/ B Cmplx/FA/Prenat (Shayla-Anuradha) 1 tab DAILY GTB Last administered on 04/12/17 09:30; Admin Dose 1 TAB; Start 04/09/17 at 09:00 Quetiapine Fumarate (Seroquel) 25 mg BID GTB Last administered on 04/12/17 09: 30; Admin Dose 25 MG; Start 04/08/17 at 21:00 Trazodone HCl (Desyrel) 25 mg QHS PO Last administered on 04/11/17 21:50; Admin Dose 25 MG; Start 04/08/17 at 21:00 Insulin Detemir (Levemir) 5 unit BID SC Last administered on 04/12/17 09:34; Admin Dose 5 UNIT; Start 04/08/17 at 22:00 Acetaminophen (Tylenol Tab) 650 mg Q4H PRN PO PAIN AND OR ELEVATED TEMP; Start 04/08/17 at 19:30 Morphine Sulfate (morphine) 2 mg Q4H PRN IV PAIN LEVEL 8-10 Last administered on 04/11/17 18:25; Admin Dose 2 MG; Start 04/08/17 at 19:30 Miscellaneous Information 1 ea NOTE XX ; Start 04/08/17 at 20:00 Glucose (Glutose) 15 gm Q15M PRN PO DECREASED GLUCOSE; Start 04/08/17 at 20:00 Glucose (Glutose) 22.5 gm Q15M PRN PO DECREASED GLUCOSE; Start 04/08/17 at 20: 00 Dextrose (D50w Syringe) 25 ml Q15M PRN IV DECREASED GLUCOSE; Start 04/08/17 at 20:00 Dextrose (D50w Syringe) 50 ml Q15M PRN IV DECREASED GLUCOSE; Start 04/08/17 at 20:00 Glucagon (Glucagen) 1 mg Q15M PRN IM DECREASED GLUCOSE; Start 04/08/17 at 20:00 Glucose 15 gm 15 gm Q15M PRN BUCCAL DECREASED GLUCOSE; Start 04/08/17 at 20:00 Norepinephrine/ Dextrose (Levophed/D5W) 500 ml @ 1.87 mls/hr TITRATE IV Last administered on 04/11/17 07:10; Admin Dose 4.5 MLS/HR; Start 04/09/17 at 09:00 Collagenase (Santyl) 1 applic DAILY TOP Last administered on 04/12/17 09:30; Admin Dose 1 APPLIC; Start 04/09/17 at 14:00 Collagenase (Santyl) 1 applic DAILY PRN TOP WHEN SOILED; Start 04/09/17 at 13: 00 IV Flush (NS 10 ml) 10 ml PRN PRN IV FLUSH LINE; Start 04/10/17 at 16:30 Insulin Aspart (Novolog Insulin Pen) NOVOLOG *MODERATE* ALGORITHM Q4 SC Last administered on 04/12/17 09:35; Admin Dose 6 UNIT; Start 04/11/17 at 09:00 Gentamicin Sulfate GENTAMICIN PER PHARMACY NOTE XX ; Start 04/11/17 at 10:30 Meropenem 100 ml @ 200 mls/hr DAILY IVPB Last administered on 04/12/17 09:29 ; Admin Dose 200 MLS/HR; Start 04/12/17 at 09:00 Potassium Phosphate/Sodium Chloride (K Phos (Meq)/NS) 254.5455 ml @ 63.636 m... ONCE ONCE IVPB Last administered on 04/12/17 10:57; Admin Dose 63.636 MLS/HR; Start 04/12/17 at 09:00; Stop 04/12/17 at 12:59 Metoclopramide HCl (Reglan Liq) 5 mg Q8 PO Last administered on 04/12/17 09:30 ; Admin Dose 5 MG; Start 04/12/17 at 08:30 Povidone Iodine (Povidone-Iodine) 1 applic DAILY TOP Last administered on 11:30; Admin Dose 1 APPLIC; Start 04/12/17 at 11:30 VARINDER JULES NP Apr 12, 2017 12:49 VARINDER JULES NP Apr 12, 2017 12:49
[2017-04-12] MEDS: ALBUMIN HUMAN 25% 100 ML IV PRN (14:04)
--- NOTE | 2017-04-12 15:56 | PN ---
Date/Time of Note Date/Time of Note DATE: 04/12/17 TIME: 15:55 Assessment/Plan VTE Prophylaxis VTE Prophylaxis Intervention: ambulation Lines/Catheters IV C[facility]ter Type (from [facility] PICC Line Central line still needed: Yes Urinary Cath still in place: Yes Reason Cath still needed: urinary retention Assessment/Plan Assessment/Plan 1. End-stage renal disease. The patient is receiving daily dialysis for solute clearance and volume removal. Plan for ultrafiltration today for 2 hours. 2. Anemia of chronic disease. Continue to monitor hemoglobin and hematocrit levels. Continue Epogen with hemodialysis. 3. Mineral bone disorder. The patient's hypophosphatemic. We will replete with potassium phosphate 40 mEq. 4. Hyponatremia secondary to end-stage renal disease, improving. 5. Hypokalemia, repleted with potassium chloride. Will dialyze on a high potassium diet. 6. Septic shock, etiology is multifactorial secondary to urinary tract infection and pneumonia. Continue current broad spectrum antibiotics, continue pressor support. 7. Ventilator dependent respiratory failure. Vent settings have been reviewed. ABG have been reviewed. Continue to monitor. 8. Dysphagia status post percutaneous endoscopic gastrostomy. Continue tube feeding. 9. History of coronary artery disease. 10. Diabetes. Continue Accu-Cheks and sliding scale. 11. Hypothyroidism. Continue Synthroid. 12. History of anal cancer. 13. Acute on chronic encephalopathy, etiology is toxic metabolic. Continue to monitor. 14. Volume overload secondary to congestive heart failure, end-stage renal disease. Continue ultrafiltration with dialysis. Subjective 24 Hr Interval Summary Free Text/Dictation The patient remains critical on pressor support. The patient is receiving daily dialysis for volume removal. No other events noted. Exam/Review of Systems Vital Signs Vitals Vital Signs Date Time Temp Pulse Resp B/P Pulse Ox O2 Delivery O2 Flow Rate FiO2 04/12/17 14:30 71 19 04/12/17 13:20 100 35 04/12/17 08:00 Bag Valve Mask 04/12/17 07:00 99/44 04/12/17 04:00 98.7 Intake and Output 04/11/17 04/11/17 04/12/17 15:00 23:00 07:00 Intake Total 1401.2309 ml 333.34 ml 398.03 ml Output Total 2400 ml 10 ml Balance -998.7691 ml 323.34 ml 398.03 ml Exam HEENT: Head is normocephalic. NECK: Supple. HEART: Regular rate. LUNGS: Show diminished breath sounds at base. ABDOMEN: Soft, nontender to palpation. No rebound or guarding. EXTREMITIES: Negative for clubbing, cyanosis. Positive edema. DERMATOLOGIC: No rashes. MUSCULOSKELETAL: No joint effusions. NEUROLOGIC: No change in exam. Results Result Diagram: 04/12/17 0510 04/12/17 0510 Results 24 hrs Laboratory Tests Test 04/11/17 17:20 04/11/17 21:31 04/12/17 01:29 04/12/17 05:10 Bedside Glucose 156 121 148 White Blood Count 14.1 H Red Blood Count 2.79 L Hemoglobin 8.2 L Hematocrit 25.3 L Mean Corpuscular Volume 90.7 Mean Corpuscular Hemoglobin 29.4 Mean Corpuscular Hemoglobin Concent 32.4 Red Cell Distribution Width 23.2 H Platelet Count 64 L Mean Platelet Volume 11.0 H Neutrophils % 80.0 H Band Neutrophils % 14.0 H Lymphocytes % 3.0 L Monocytes % 3.0 Eosinophils % Neutrophils # 11.3 H Lymphocytes # 0.4 L Monocytes # 0.4 Eosinophils # Platelet Estimate PLT APPEAR DECREASED Sodium Level 135 Potassium Level 3.9 Chloride Level 100 Carbon Dioxide Level 27 Anion Gap 12 Blood Urea Nitrogen 28 H Creatinine 1.44 H Glucose Level 151 Calcium Level 7.9 L Phosphorus Level 2.1 L Magnesium Level 1.8 Test 04/12/17 05:20 04/12/17 09:32 04/12/17 12:50 Bedside Glucose 146 225 H 258 H Medications Medications Current Medications Atorvastatin Calcium (Lipitor) 20 mg QHS GTB Last administered on 04/11/17 21: 50; Admin Dose 20 MG; Start 04/08/17 at 21:00 Acetaminophen/ Hydrocodone Bitart ([place] (5/325)) 1 tab Q6H PRN GTB SEVERE PAIN LEVEL 7-10 Last administered on 04/12/17 10:58; Admin Dose 1 TAB; Start at 19:30 Albuterol/ Ipratropium (Duoneb) 3 ml Q2H PRN NEB SHORTNESS OF BREATH; Start at 19:30 Lansoprazole (Prevacid) 30 mg DAILY@06 GTB Last administered on 04/12/17 06:09 ; Admin Dose 30 MG; Start 04/09/17 at 06:00 Levothyroxine Sodium (Synthroid) 125 mcg DAILY@06 GTB Last administered on 04/12 06:09; Admin Dose 125 MCG; Start 04/09/17 at 06:00 Lisinopril (Zestril) 2.5 mg BID GTB ; Start 04/08/17 at 21:00; Status Future Hold Metoprolol Tartrate (Lopressor) 25 mg BID GTB Last administered on 04/08/17 21 :30; Admin Dose 25 MG; Start 04/08/17 at 21:00; Status Future Hold Multivit/Ca Carb/ B Cmplx/FA/Prenat ([place]-Anuradha) 1 tab DAILY GTB Last administered on 04/12/17 09:30; Admin Dose 1 TAB; Start 04/09/17 at 09:00 Quetiapine Fumarate (Seroquel) 25 mg BID GTB Last administered on 04/12/17 09: 30; Admin Dose 25 MG; Start 04/08/17 at 21:00 Trazodone HCl (Desyrel) 25 mg QHS PO Last administered on 04/11/17 21:50; Admin Dose 25 MG; Start 04/08/17 at 21:00 Insulin Detemir (Levemir) 5 unit BID SC Last administered on 04/12/17 09:34; Admin Dose 5 UNIT; Start 04/08/17 at 22:00 Acetaminophen (Tylenol Tab) 650 mg Q4H PRN PO PAIN AND OR ELEVATED TEMP; Start 04/08/17 at 19:30 Morphine Sulfate (morphine) 2 mg Q4H PRN IV PAIN LEVEL 8-10 Last administered on 04/11/17 18:25; Admin Dose 2 MG; Start 04/08/17 at 19:30 Miscellaneous Information 1 ea NOTE XX ; Start 04/08/17 at 20:00 Glucose (Glutose) 15 gm Q15M PRN PO DECREASED GLUCOSE; Start 04/08/17 at 20:00 Glucose (Glutose) 22.5 gm Q15M PRN PO DECREASED GLUCOSE; Start 04/08/17 at 20: 00 Dextrose (D50w Syringe) 25 ml Q15M PRN IV DECREASED GLUCOSE; Start 04/08/17 at 20:00 Dextrose (D50w Syringe) 50 ml Q15M PRN IV DECREASED GLUCOSE; Start 04/08/17 at 20:00 Glucagon (Glucagen) 1 mg Q15M PRN IM DECREASED GLUCOSE; Start 04/08/17 at 20:00 Glucose 15 gm 15 gm Q15M PRN BUCCAL DECREASED GLUCOSE; Start 04/08/17 at 20:00 Norepinephrine/ Dextrose (Levophed/D5W) 500 ml @ 1.87 mls/hr TITRATE IV Last administered on 04/11/17 07:10; Admin Dose 4.5 MLS/HR; Start 04/09/17 at 09:00 Collagenase (Santyl) 1 applic DAILY TOP Last administered on 04/12/17 09:30; Admin Dose 1 APPLIC; Start 04/09/17 at 14:00 Collagenase (Santyl) 1 applic DAILY PRN TOP WHEN SOILED; Start 04/09/17 at 13: 00 IV Flush (NS 10 ml) 10 ml PRN PRN IV FLUSH LINE; Start 04/10/17 at 16:30 Insulin Aspart (Novolog Insulin Pen) NOVOLOG *MODERATE* ALGORITHM Q4 SC Last administered on 04/12/17 12:53; Admin Dose 6 UNIT; Start 04/11/17 at 09:00 Gentamicin Sulfate GENTAMICIN PER PHARMACY NOTE XX ; Start 04/11/17 at 10:30 Meropenem (Merrem 500 Mg/ 100 ml (Pmx)) 100 ml @ 200 mls/hr DAILY IVPB Last administered on 04/12/17 09:29; Admin Dose 200 MLS/HR; Start 04/12/17 at 09:00 Metoclopramide HCl (Reglan Liq) 5 mg Q8 PO Last administered on 04/12/17 09:30 ; Admin Dose 5 MG; Start 04/12/17 at 08:30 Povidone Iodine (Povidone-Iodine) 1 applic DAILY TOP Last administered on 11:30; Admin Dose 1 APPLIC; Start 04/12/17 at 11:30 ANJELICA SANCHEZ DO Apr 12, 2017 15:56
--- NOTE | 2017-04-12 17:15 | PN ---
Date/Time of Note Date/Time of Note DATE: 04/12/17 TIME: 17:08 Assessment/Plan VTE Prophylaxis VTE Prophylaxis Intervention: SCD's Lines/Catheters [facility] Type (from [facility] PICC Line Central line still needed: Yes Urinary Cath still in place: Yes Reason Cath still needed: urinary retention Assessment/Plan Chief Complaint/Hosp Course Patient is currently on pressors for hemodynamic support, afebrile. Problems: Assessment/Plan 1. Septic shock with Klebsiella bacteremia. Continue antibiotics per ID. Dr. Thurston group is following in infection disease consultation. Continue ICU care and pressors for hemodynamic support. 2. Acute respiratory failure. continue vent support. 3. Diabetes mellitus. Continue Levemir and NovoLog. 4. Systolic heart failure. Continue hemodialysis for fluid removal. 5. End-stage renal disease. Continue hemodialysis. 6. Anoxic encephalopathy. No acute issues. 7. Anemia of chronic disease. Continue Epogen. 8. Hypothyroidism. Continue Synthroid. 9. Dyslipidemia. Continue Lipitor. 10. Possible history of psychosis. Continue Seroquel and trazodone. Further recommendations based on clinical course. Plan of care discussed with Dr. Guerrero. Exam/Review of Systems Vital Signs Vitals Vital Signs Date Time Temp Pulse Resp B/P Pulse Ox O2 Delivery O2 Flow Rate FiO2 04/12/17 15:20 90 14 100 35 04/12/17 08:00 Bag Valve Mask 04/12/17 07:00 99/44 04/12/17 04:00 98.7 Intake and Output 04/11/17 04/11/17 04/12/17 15:00 23:00 07:00 Intake Total 1401.2309 ml 333.34 ml 398.03 ml Output Total 2400 ml 10 ml Balance -998.7691 ml 323.34 ml 398.03 ml Results Result Diagram: 04/12/17 0510 04/12/17 0510 Results 24 hrs Laboratory Tests Test 04/11/17 17:20 04/11/17 21:31 04/12/17 01:29 04/12/17 05:10 Bedside Glucose 156 121 148 White Blood Count 14.1 H Red Blood Count 2.79 L Hemoglobin 8.2 L Hematocrit 25.3 L Mean Corpuscular Volume 90.7 Mean Corpuscular Hemoglobin 29.4 Mean Corpuscular Hemoglobin Concent 32.4 Red Cell Distribution Width 23.2 H Platelet Count 64 L Mean Platelet Volume 11.0 H Neutrophils % 80.0 H Band Neutrophils % 14.0 H Lymphocytes % 3.0 L Monocytes % 3.0 Eosinophils % Neutrophils # 11.3 H Lymphocytes # 0.4 L Monocytes # 0.4 Eosinophils # Platelet Estimate PLT APPEAR DECREASED Sodium Level 135 Potassium Level 3.9 Chloride Level 100 Carbon Dioxide Level 27 Anion Gap 12 Blood Urea Nitrogen 28 H Creatinine 1.44 H Glucose Level 151 Calcium Level 7.9 L Phosphorus Level 2.1 L Magnesium Level 1.8 Test 04/12/17 05:20 04/12/17 09:32 04/12/17 12:50 Bedside Glucose 146 225 H 258 H Medications Medications Current Medications Atorvastatin Calcium (Lipitor) 20 mg QHS GTB Last administered on 04/11/17 21: 50; Admin Dose 20 MG; Start 04/08/17 at 21:00 Acetaminophen/ Hydrocodone Bitart ([place] (5/325)) 1 tab Q6H PRN GTB SEVERE PAIN LEVEL 7-10 Last administered on 04/12/17 16:40; Admin Dose 1 TAB; Start at 19:30 Albuterol/ Ipratropium (Duoneb) 3 ml Q2H PRN NEB SHORTNESS OF BREATH; Start at 19:30 Lansoprazole (Prevacid) 30 mg DAILY@06 GTB Last administered on 04/12/17 06:09 ; Admin Dose 30 MG; Start 04/09/17 at 06:00 Levothyroxine Sodium (Synthroid) 125 mcg DAILY@06 GTB Last administered on 04/12 06:09; Admin Dose 125 MCG; Start 04/09/17 at 06:00 Lisinopril (Zestril) 2.5 mg BID GTB ; Start 04/08/17 at 21:00; Status Future Hold Metoprolol Tartrate (Lopressor) 25 mg BID GTB Last administered on 04/08/17 21 :30; Admin Dose 25 MG; Start 04/08/17 at 21:00; Status Future Hold Multivit/Ca Carb/ B Cmplx/FA/Prenat (Shayla-Anuradha) 1 tab DAILY GTB Last administered on 04/12/17 09:30; Admin Dose 1 TAB; Start 04/09/17 at 09:00 Quetiapine Fumarate (Seroquel) 25 mg BID GTB Last administered on 04/12/17 09: 30; Admin Dose 25 MG; Start 04/08/17 at 21:00 Trazodone HCl (Desyrel) 25 mg QHS PO Last administered on 04/11/17 21:50; Admin Dose 25 MG; Start 04/08/17 at 21:00 Insulin Detemir (Levemir) 5 unit BID SC Last administered on 04/12/17 09:34; Admin Dose 5 UNIT; Start 04/08/17 at 22:00 Acetaminophen (Tylenol Tab) 650 mg Q4H PRN PO PAIN AND OR ELEVATED TEMP; Start 04/08/17 at 19:30 Morphine Sulfate (morphine) 2 mg Q4H PRN IV PAIN LEVEL 8-10 Last administered on 04/11/17 18:25; Admin Dose 2 MG; Start 04/08/17 at 19:30 Miscellaneous Information 1 ea NOTE XX ; Start 04/08/17 at 20:00 Glucose (Glutose) 15 gm Q15M PRN PO DECREASED GLUCOSE; Start 04/08/17 at 20:00 Glucose (Glutose) 22.5 gm Q15M PRN PO DECREASED GLUCOSE; Start 04/08/17 at 20: 00 Dextrose (D50w Syringe) 25 ml Q15M PRN IV DECREASED GLUCOSE; Start 04/08/17 at 20:00 Dextrose (D50w Syringe) 50 ml Q15M PRN IV DECREASED GLUCOSE; Start 04/08/17 at 20:00 Glucagon (Glucagen) 1 mg Q15M PRN IM DECREASED GLUCOSE; Start 04/08/17 at 20:00 Glucose 15 gm 15 gm Q15M PRN BUCCAL DECREASED GLUCOSE; Start 04/08/17 at 20:00 Norepinephrine/ Dextrose (Levophed/D5W) 500 ml @ 1.87 mls/hr TITRATE IV Last administered on 04/11/17 07:10; Admin Dose 4.5 MLS/HR; Start 04/09/17 at 09:00 Collagenase (Santyl) 1 applic DAILY TOP Last administered on 04/12/17 09:30; Admin Dose 1 APPLIC; Start 04/09/17 at 14:00 Collagenase (Santyl) 1 applic DAILY PRN TOP WHEN SOILED; Start 04/09/17 at 13: 00 IV Flush (NS 10 ml) 10 ml PRN PRN IV FLUSH LINE; Start 04/10/17 at 16:30 Insulin Aspart (Novolog Insulin Pen) NOVOLOG *MODERATE* ALGORITHM Q4 SC Last administered on 04/12/17 12:53; Admin Dose 6 UNIT; Start 04/11/17 at 09:00 Gentamicin Sulfate GENTAMICIN PER PHARMACY NOTE XX ; Start 04/11/17 at 10:30 Meropenem (Merrem 500 Mg/ 100 ml (Pmx)) 100 ml @ 200 mls/hr DAILY IVPB Last administered on 04/12/17 09:29; Admin Dose 200 MLS/HR; Start 04/12/17 at 09:00 Metoclopramide HCl (Reglan Liq) 5 mg Q8 PO Last administered on 04/12/17 16:40 ; Admin Dose 5 MG; Start 04/12/17 at 08:30 Povidone Iodine (Povidone-Iodine) 1 applic DAILY TOP Last administered on 11:30; Admin Dose 1 APPLIC; Start 04/12/17 at 11:30 HIEU DALY Apr 12, 2017 17:14
--- NOTE | 2017-04-12 17:59 | RADRPT ---
Echocardiogram Report Patient Name: KAUSHAL MOLINA Gender: Female Date: 1950 Study Date: 11-Apr-2017 Ad Setter: Dionisio Scanlon [facility] Location: 118 Ref. Physician: VARNIDER JULES Quality: Good Procedures: Transthoracic echocardiogram examination. Indications: r/o endocarditis. 2D/M Mode Doppler Measurement Value Normal Range Measurement Value Normal Range TR Peak Quinn 3.0 m/sec TR Peak PG 37.0 mmHg Findings Left Ventricle: Mild to moderate left ventricular systolic dysfunction. The left ventricular ejection fraction is visually estimated at 40 %. Right Ventricle: Normal right ventricular systolic function. Mitral Valve: Mitral valve leaflets appear moderately thickened. Mild mitral regurgitation. Aortic Valve: Aortic cusps appear mildly calcified and moderately thickened. Tricuspid Valve: The estimated Peak RVSP is 45 mmHg. Tricuspid valve appears moderately thickened. There is mild to moderate tricuspid regurgitation. Pulmonic Valve: The pulmonic valve is not well visualized. IVC: Inferior vena cava without respiratory collapse, however, patient on ventilator. Conclusions Mild to moderate left ventricular systolic dysfunction. The left ventricular ejection fraction is visually estimated at 40 %. Mitral valve leaflets appear moderately thickened. Mild mitral regurgitation. Aortic cusps appear mildly calcified and moderately thickened. The estimated Peak RVSP is 45 mmHg. Tricuspid valve appears moderately thickened. There is mild to moderate tricuspid regurgitation. Inferior vena cava without respiratory collapse, however, patient on ventilator. Electronically Signed By: Biju Mcdaniels 12-Apr-2017 17:59:16 -0700 Patient Name: KAUSHAL MOLINA Study Date: 11-Apr-2017 [id number]
[2017-04-12] MEDS: traZODone 50 MG TAB PO SCH (21:39)
[2017-04-12] MEDS: ATORVASTATIN 20 MG TAB GTB SCH (21:39)
[2017-04-13] VITALS (108 sets, daily range): BP systolic 85–125; BP diastolic 43–97; PULSE 85–123; RESP 0–22
[2017-04-13] MEDS: INSULIN ASPART [NOVOLOG] 3 ML PEN SC SCH ×6 (01:00→21:00)
--- NOTE | 2017-04-13 03:13 | RADRPT ---
PROCEDURE: XR Abdomen. CLINICAL INDICATION: Abdominal pain with nausea and vomiting. TECHNIQUE: AP abdomen x-ray. COMPARISON: None. FINDINGS: The stomach is distended with air. A G-tube is in place. Bowel gas pattern is nonobstructive nonspec ific. Hazy opacity over the abdomen may represent ascites. There is no evident obstruction. There i s cardiomegaly with mild right lung base air space disease. IMPRESSION: Possible ascites, otherwise without evident obstruction. RPTAT: UU. Physician Thomas Date Time Electronically viewed and signed by Physician Thomas on 04/13/2017 03:12 RS/
[2017-04-13 05:50] LABS: ADD SCAN DIFF NO
[2017-04-13] MEDS: LANSOPRAZOLE 30 MG CAP GTB SCH (05:56)
[2017-04-13] MEDS: LEVOTHYROXINE 125 MCG TAB GTB SCH (05:56)
[2017-04-13] MEDS: METOCLOPRAMIDE (1 MG/ML) 10 ML CUP PO SCH ×3 (05:56→21:41)
[2017-04-13 06:14] LABS: ABNORMAL IP MESSAGE 1; BASOPHILS % 0.1 % (0.0-2.0); HEMATOCRIT 24.4 % (37.0-47.0); HEMOGLOBIN 7.9 g/dl (12.0-16.0); LYMPHOCYTES # 0.7 10^3/ul (0.8-2.9); LYMPHOCYTES % 4.1 % (15.0-51.0); MEAN CORPUSCULAR HEMOGLOBIN 29.6 pg (29.0-33.0); MEAN CORPUSCULAR HGB CONC 32.4 g/dl (32.0-37.0); MEAN CORPUSCULAR VOLUME 91.4 fl (82.0-101.0); MEAN PLATELET VOLUME 10.8 fl (7.4-10.4); MONOCYTE # 0.8 10^3/ul (0.3-0.9); NEUTROPHIL # 14.2 10^3/ul (1.6-7.5); NEUTROPHILS % 88.2 % (39.0-77.0); PLATELET COUNT 70 10^3/UL (140-415); RED BLOOD COUNT 2.67 10^6/ul (4.20-5.40); RED CELL DISTRIBUTION WIDTH 22.6 % (11.5-14.5)
[2017-04-13 06:39] LABS: CALCIUM 7.5 mg/dl (8.4-10.2); CREATININE 1.77 mg/dl (0.44-1.00); MAGNESIUM 1.7 mg/dl (1.7-2.5); PHOSPHORUS 2.3 mg/dl (2.5-4.9); POTASSIUM 4.1 mmol/L (3.5-5.1)
--- NOTE | 2017-04-13 07:59 | PN ---
Date/Time of Note Date/Time of Note DATE: 04/13/17 TIME: 07:57 Assessment/Plan VTE Prophylaxis VTE Prophylaxis Intervention: anti-embolic stocking Lines/Catheters IV Catheter Type (from [facility]rs): PICC Line Central line still needed: Yes Urinary Cath still in place: Yes Reason Cath still needed: other (indicate) Assessment/Plan Chief Complaint/Hosp Course 1. End-stage renal disease. The patient is receiving daily dialysis for solute clearance and volume removal. Plan for ultrafiltration today for 2 hours. 2. Anemia of chronic disease. Continue to monitor hemoglobin and hematocrit levels. Continue Epogen with hemodialysis. 3. Mineral bone disorder. The patient's hypophosphatemic. We will replete with potassium phosphate 20 mEq. 4. Hyponatremia secondary to end-stage renal disease, improving. 5. Hypokalemia, improved 6. Septic shock, etiology is multifactorial secondary to urinary tract infection and pneumonia. Continue current broad spectrum antibiotics, continue pressor support. 7. Ventilator dependent respiratory failure. Vent settings have been reviewed. ABG have been reviewed. Continue to monitor. 8. Dysphagia status post percutaneous endoscopic gastrostomy. Continue tube feeding. 9. History of coronary artery disease. 10. Diabetes. Continue Accu-Cheks and sliding scale. 11. Hypothyroidism. Continue Synthroid. 12. History of anal cancer. 13. Acute on chronic encephalopathy, etiology is toxic metabolic. Continue to monitor. 14. Volume overload secondary to congestive heart failure, end-stage renal disease. Continue ultrafiltration with dialysis. Problems: Subjective 24 Hr Interval Summary Free Text/Dictation The patient remains critical on pressor support. The patient is receiving daily dialysis for volume removal. No other events noted. Exam/Review of Systems Vital Signs Vitals Vital Signs Date Time Temp Pulse Resp B/P Pulse Ox O2 Delivery O2 Flow Rate FiO2 04/13/17 07:00 102 18 104/47 100 Mechanical Ventilator 04/13/17 05:06 35 04/13/17 04:00 98.5 Intake and Output 04/12/17 04/12/17 04/13/17 15:00 23:00 07:00 Intake Total 567.47 ml 274.37 ml 160.00 ml Output Total 3300 ml 0 ml 0 ml Balance -2732.53 ml 274.37 ml 160.00 ml Exam HEENT: Head is normocephalic. NECK: Supple. HEART: Regular rate. LUNGS: Show diminished breath sounds at base. ABDOMEN: Soft, nontender to palpation. No rebound or guarding. EXTREMITIES: Negative for clubbing, cyanosis. Positive edema. DERMATOLOGIC: No rashes. MUSCULOSKELETAL: No joint effusions. NEUROLOGIC: No change in exam Results Result Diagram: 04/13/17 0500 04/13/17 0500 Results 24 hrs Laboratory Tests Test 04/12/17 09:32 04/12/17 12:50 04/12/17 17:30 04/12/17 21:38 Bedside Glucose 225 H 258 H 194 125 Test 04/13/17 01:23 04/13/17 04:59 04/13/17 05:00 Bedside Glucose 156 116 White Blood Count 16.0 H Red Blood Count 2.67 L Hemoglobin 7.9 L Hematocrit 24.4 L Mean Corpuscular Volume 91.4 Mean Corpuscular Hemoglobin 29.6 Mean Corpuscular Hemoglobin Concent 32.4 Red Cell Distribution Width 22.6 H Platelet Count 70 L Mean Platelet Volume 10.8 H Neutrophils % 88.2 H Lymphocytes % 4.1 L Monocytes % 5.0 Eosinophils % 0.0 Basophils % 0.1 Nucleated Red Blood Cells % 0.0 Neutrophils # 14.2 H Lymphocytes # 0.7 L Monocytes # 0.8 Eosinophils # 0.0 Basophils # 0.0 Nucleated Red Blood Cells # 0.0 Sodium Level 134 L Potassium Level 4.1 Chloride Level 99 Carbon Dioxide Level 27 Anion Gap 12 Blood Urea Nitrogen 40 #H Creatinine 1.77 H Glucose Level 104 # Calcium Level 7.5 L Phosphorus Level 2.3 L Magnesium Level 1.7 Medications Medications Current Medications Atorvastatin Calcium (Lipitor) 20 mg QHS GTB Last administered on 04/12/17 21: 39; Admin Dose 20 MG; Start 04/08/17 at 21:00 Acetaminophen/ Hydrocodone Bitart ([place] (5/325)) 1 tab Q6H PRN GTB SEVERE PAIN LEVEL 7-10 Last administered on 04/12/17 16:40; Admin Dose 1 TAB; Start at 19:30 Albuterol/ Ipratropium (Duoneb) 3 ml Q2H PRN NEB SHORTNESS OF BREATH; Start at 19:30 Lansoprazole (Prevacid) 30 mg DAILY@06 GTB Last administered on 04/13/17 05:56 ; Admin Dose 30 MG; Start 04/09/17 at 06:00 Levothyroxine Sodium (Synthroid) 125 mcg DAILY@06 GTB Last administered on 04/13 05:56; Admin Dose 125 MCG; Start 04/09/17 at 06:00 Lisinopril (Zestril) 2.5 mg BID GTB ; Start 04/08/17 at 21:00; Status Future Hold Metoprolol Tartrate (Lopressor) 25 mg BID GTB Last administered on 04/08/17 21 :30; Admin Dose 25 MG; Start 04/08/17 at 21:00; Status Future Hold Multivit/Ca Carb/ B Cmplx/FA/Prenat (Shayla-Anuradha) 1 tab DAILY GTB Last administered on 04/12/17 09:30; Admin Dose 1 TAB; Start 04/09/17 at 09:00 Quetiapine Fumarate (Seroquel) 25 mg BID GTB Last administered on 04/12/17 21: 39; Admin Dose 25 MG; Start 04/08/17 at 21:00 Trazodone HCl (Desyrel) 25 mg QHS PO Last administered on 04/12/17 21:39; Admin Dose 25 MG; Start 04/08/17 at 21:00 Insulin Detemir (Levemir) 5 unit BID SC Last administered on 04/12/17 21:44; Admin Dose 5 UNIT; Start 04/08/17 at 22:00 Acetaminophen (Tylenol Tab) 650 mg Q4H PRN PO PAIN AND OR ELEVATED TEMP; Start 04/08/17 at 19:30 Morphine Sulfate (morphine) 2 mg Q4H PRN IV PAIN LEVEL 8-10 Last administered on 04/11/17 18:25; Admin Dose 2 MG; Start 04/08/17 at 19:30 Miscellaneous Information 1 ea NOTE XX ; Start 04/08/17 at 20:00 Glucose (Glutose) 15 gm Q15M PRN PO DECREASED GLUCOSE; Start 04/08/17 at 20:00 Glucose (Glutose) 22.5 gm Q15M PRN PO DECREASED GLUCOSE; Start 04/08/17 at 20: 00 Dextrose (D50w Syringe) 25 ml Q15M PRN IV DECREASED GLUCOSE; Start 04/08/17 at 20:00 Dextrose (D50w Syringe) 50 ml Q15M PRN IV DECREASED GLUCOSE; Start 04/08/17 at 20:00 Glucagon (Glucagen) 1 mg Q15M PRN IM DECREASED GLUCOSE; Start 04/08/17 at 20:00 Glucose 15 gm 15 gm Q15M PRN BUCCAL DECREASED GLUCOSE; Start 04/08/17 at 20:00 Norepinephrine/ Dextrose (Levophed/D5W) 500 ml @ 1.87 mls/hr TITRATE IV Last administered on 04/11/17 07:10; Admin Dose 4.5 MLS/HR; Start 04/09/17 at 09:00 Collagenase (Santyl) 1 applic DAILY TOP Last administered on 04/12/17 09:30; Admin Dose 1 APPLIC; Start 04/09/17 at 14:00 Collagenase (Santyl) 1 applic DAILY PRN TOP WHEN SOILED; Start 04/09/17 at 13: 00 IV Flush (NS 10 ml) 10 ml PRN PRN IV FLUSH LINE; Start 04/10/17 at 16:30 Insulin Aspart (Novolog Insulin Pen) NOVOLOG *MODERATE* ALGORITHM Q4 SC Last administered on 04/12/17 17:31; Admin Dose 4 UNIT; Start 04/11/17 at 09:00 Gentamicin Sulfate GENTAMICIN PER PHARMACY NOTE XX ; Start 04/11/17 at 10:30 Meropenem (Merrem 500 Mg/ 100 ml (Pmx)) 100 ml @ 200 mls/hr DAILY IVPB Last administered on 04/12/17 09:29; Admin Dose 200 MLS/HR; Start 04/12/17 at 09:00 Metoclopramide HCl (Reglan Liq) 5 mg Q8 PO Last administered on 04/13/17 05:56 ; Admin Dose 5 MG; Start 04/12/17 at 08:30 Povidone Iodine (Povidone-Iodine) 1 applic DAILY TOP Last administered on 11:30; Admin Dose 1 APPLIC; Start 04/12/17 at 11:30 ANJELICA SANCHEZ DO Apr 13, 2017 07:59
[2017-04-13] MEDS: MEROPENEM 500 MG/100 ML (PMX) 100 ML IVPB SCH (08:47)
[2017-04-13] MEDS: COLLAGENASE 30 GM TUBE TOP SCH (08:48)
[2017-04-13] MEDS: BALSAM PERU/CASTOR OIL 60 GM TUBE TOP SCH ×2 (08:48→21:42)
[2017-04-13] MEDS: POVIDONE IODINE 10% 28.4 GM OINT TOP SCH (08:48)
[2017-04-13] MEDS: MULTIVIT/CA CARB/B CMPLX/FA TAB GTB SCH (08:49)
[2017-04-13] MEDS: QUETIAPINE 25 MG TAB GTB SCH ×2 (08:49→21:41)
[2017-04-13] MEDS ORDERED: POTASSIUM PHOSPHATE 20 MEQ in SOD CHLORIDE 0.9% 250 ML IVPB ONE (09:00)
[2017-04-13] MEDS: INSULIN DETEMIR [LEVEMIR] 3ML CART SC SCH ×2 (09:00→21:46)
--- NOTE | 2017-04-13 09:33 | RADRPT ---
PROCEDURE: XR Chest 1 view. CLINICAL INDICATION: Shortness of breath. TECHNIQUE: AP views of the chest were obtained. COMPARISON: April 10, 2017 FINDINGS: The heart is large. Calcified atherosclerosis is noted in the aorta. Tracheostomy tube is stable an d appears in grossly appropriate location. Median sternotomy wires overlie the heart. Left-sided P ICC line is unchanged. Right upper lobe consolidation is stable. Patchy infiltrates in the bilater al lower lobes and small pleural effusions are stable on the right and have mildly decreased on the left. The osseous structures are osteopenic, but appear grossly intact. IMPRESSION: Cardiomegaly with calcified atherosclerosis in the aorta. Stable right upper lobe consolidation. Mild interval decrease in patchy left lower lobe infiltrates and small left pleural effusion. Mild to moderate residual remains. Stable right lower lobe infiltrates and small right pleural effusion. RPTAT: AA .Kishore Lucero MD, Date Time Electronically viewed and signed by .Kishore Lucero MD, MD on 04/13/2017 09:32 .P/
[2017-04-13] MEDS ORDERED: HEPARIN 1000 UNITS/ML 10 ML INJ CATHETER SCH (10:00)
[2017-04-13] MEDS: GENTAMICIN 80 MG/NS (PMX) 50 ML IVPB SCH (10:01)
--- NOTE | 2017-04-13 10:36 | CONS ---
Date/Time of Note Date/Time of Note DATE: 04/13/17 TIME: 10:33 Assessment/Plan Assessment/Plan Additional Assessment/Plan Ventilator setting; AC of 14, tidal volume 500, PEEP of 5, 35% FiO2. Chest x-ray was reviewed from today which is showing marked improvement in bilateral pulmonary edema as well as bilateral pneumonia. Assessment recommendations; 1. Patient admitted with severe bilateral pneumonia as well as pulmonary edema with marked overall clinical and radiological improvement. 2. Chronic renal failure, on hemodialysis. 3. Chronic respiratory failure, on ventilator. 4. Multiple other comorbidities including anemia, thrombocytopenia, hypothyroidism and prior CABG. Continue current treatment. Consultation Date/Type/Reason Admit Date/Time Apr 08, 2017 at 16:19 Initial Consult Date 04/09/17 Type of Consultation: Pulmonary/critical care Referring Provider: IVAN MALLOY MD 24 HR Interval Summary Free Text/Dictation Patient condition is stable. He is awake alert. Has remained hemodynamically stable. General exam; elderly woman, on ventilator via tracheostomy currently in no distress. Awake and alert. Exam/Review of Systems Vital Signs Vitals Vital Signs Date Time Temp Pulse Resp B/P Pulse Ox O2 Delivery O2 Flow Rate FiO2 04/13/17 09:23 99 20 100 35 04/13/17 07:00 104/47 Mechanical Ventilator 04/13/17 04:00 98.5 Intake and Output 04/12/17 04/12/17 04/13/17 15:00 23:00 07:00 Intake Total 567.47 ml 274.37 ml 220.00 ml Output Total 3300 ml 0 ml 0 ml Balance -2732.53 ml 274.37 ml 220.00 ml Exam HEENT exam; supple neck, no JVD. No lymphadenopathy. Midline trachea. No thyromegaly. Tracheostomy in place with clean insertion site. It is edentulous. Pupils are small bilaterally. Chest examined; diminished but clear vessel. S1-S2 audible, no murmurs. Regular rhythm. There is a well-healed sternal scar. Abdomen examination; soft, G-tube in place. No organomegaly. Bowel sounds are audible. Extremity exam; no peripheral edema. There is a small ulcer involving the tip of the right toe. SYSTEM SUPPORT SPECIALIST exam is; patient is awake and alert and follows simple commands. Has generalized muscular weakness. No focal motor deficit. Results Result Diagram: 04/13/17 0500 04/13/17 0500 Results 24 hrs Laboratory Tests Test 04/12/17 12:50 04/12/17 17:30 04/12/17 21:38 04/13/17 01:23 Bedside Glucose 258 H 194 125 156 Test 04/13/17 04:59 04/13/17 05:00 04/13/17 08:40 Bedside Glucose 116 108 White Blood Count 16.0 H Red Blood Count 2.67 L Hemoglobin 7.9 L Hematocrit 24.4 L Mean Corpuscular Volume 91.4 Mean Corpuscular Hemoglobin 29.6 Mean Corpuscular Hemoglobin Concent 32.4 Red Cell Distribution Width 22.6 H Platelet Count 70 L Mean Platelet Volume 10.8 H Neutrophils % 88.2 H Lymphocytes % 4.1 L Monocytes % 5.0 Eosinophils % 0.0 Basophils % 0.1 Nucleated Red Blood Cells % 0.0 Neutrophils # 14.2 H Lymphocytes # 0.7 L Monocytes # 0.8 Eosinophils # 0.0 Basophils # 0.0 Nucleated Red Blood Cells # 0.0 Sodium Level 134 L Potassium Level 4.1 Chloride Level 99 Carbon Dioxide Level 27 Anion Gap 12 Blood Urea Nitrogen 40 #H Creatinine 1.77 H Glucose Level 104 # Calcium Level 7.5 L Phosphorus Level 2.3 L Magnesium Level 1.7 Medications Medications Current Medications Atorvastatin Calcium (Lipitor) 20 mg QHS GTB Last administered on 04/12/17 21: 39; Admin Dose 20 MG; Start 04/08/17 at 21:00 Acetaminophen/ Hydrocodone Bitart ([place] (5/325)) 1 tab Q6H PRN GTB SEVERE PAIN LEVEL 7-10 Last administered on 04/12/17 16:40; Admin Dose 1 TAB; Start at 19:30 Albuterol/ Ipratropium (Duoneb) 3 ml Q2H PRN NEB SHORTNESS OF BREATH; Start at 19:30 Lansoprazole (Prevacid) 30 mg DAILY@06 GTB Last administered on 04/13/17 05:56 ; Admin Dose 30 MG; Start 04/09/17 at 06:00 Levothyroxine Sodium (Synthroid) 125 mcg DAILY@06 GTB Last administered on 04/13 05:56; Admin Dose 125 MCG; Start 04/09/17 at 06:00 Lisinopril (Zestril) 2.5 mg BID GTB ; Start 04/08/17 at 21:00; Status Future Hold Metoprolol Tartrate (Lopressor) 25 mg BID GTB Last administered on 04/08/17 21 :30; Admin Dose 25 MG; Start 04/08/17 at 21:00; Status Future Hold Multivit/Ca Carb/ B Cmplx/FA/Prenat (Shayla-Anuradha) 1 tab DAILY GTB Last administered on 04/13/17 08:49; Admin Dose 1 TAB; Start 04/09/17 at 09:00 Quetiapine Fumarate (Seroquel) 25 mg BID GTB Last administered on 04/13/17 08: 49; Admin Dose 25 MG; Start 04/08/17 at 21:00 Trazodone HCl (Desyrel) 25 mg QHS PO Last administered on 04/12/17 21:39; Admin Dose 25 MG; Start 04/08/17 at 21:00 Insulin Detemir (Levemir) 5 unit BID SC Last administered on 04/13/17 09:00; Admin Dose 5 UNIT; Start 04/08/17 at 22:00 Acetaminophen (Tylenol Tab) 650 mg Q4H PRN PO PAIN AND OR ELEVATED TEMP; Start 04/08/17 at 19:30 Morphine Sulfate (morphine) 2 mg Q4H PRN IV PAIN LEVEL 8-10 Last administered on 04/11/17 18:25; Admin Dose 2 MG; Start 04/08/17 at 19:30 Miscellaneous Information 1 ea NOTE XX ; Start 04/08/17 at 20:00 Glucose (Glutose) 15 gm Q15M PRN PO DECREASED GLUCOSE; Start 04/08/17 at 20:00 Glucose (Glutose) 22.5 gm Q15M PRN PO DECREASED GLUCOSE; Start 04/08/17 at 20: 00 Dextrose (D50w Syringe) 25 ml Q15M PRN IV DECREASED GLUCOSE; Start 04/08/17 at 20:00 Dextrose (D50w Syringe) 50 ml Q15M PRN IV DECREASED GLUCOSE; Start 04/08/17 at 20:00 Glucagon (Glucagen) 1 mg Q15M PRN IM DECREASED GLUCOSE; Start 04/08/17 at 20:00 Glucose 15 gm 15 gm Q15M PRN BUCCAL DECREASED GLUCOSE; Start 04/08/17 at 20:00 Norepinephrine/ Dextrose (Levophed/D5W) 500 ml @ 1.87 mls/hr TITRATE IV Last administered on 04/11/17 07:10; Admin Dose 4.5 MLS/HR; Start 04/09/17 at 09:00 Collagenase (Santyl) 1 applic DAILY TOP Last administered on 04/13/17 08:48; Admin Dose 1 APPLIC; Start 04/09/17 at 14:00 Collagenase (Santyl) 1 applic DAILY PRN TOP WHEN SOILED; Start 04/09/17 at 13: 00 IV Flush (NS 10 ml) 10 ml PRN PRN IV FLUSH LINE; Start 04/10/17 at 16:30 Insulin Aspart (Novolog Insulin Pen) NOVOLOG *MODERATE* ALGORITHM Q4 SC Last administered on 04/12/17 17:31; Admin Dose 4 UNIT; Start 04/11/17 at 09:00 Gentamicin Sulfate GENTAMICIN PER PHARMACY NOTE XX ; Start 04/11/17 at 10:30 Meropenem (Merrem 500 Mg/ 100 ml (Pmx)) 100 ml @ 200 mls/hr DAILY IVPB Last administered on 04/13/17 08:47; Admin Dose 200 MLS/HR; Start 04/12/17 at 09:00 Metoclopramide HCl (Reglan Liq) 5 mg Q8 PO Last administered on 04/13/17 05:56 ; Admin Dose 5 MG; Start 04/12/17 at 08:30 Povidone Iodine 1 applic 1 applic DAILY TOP Last administered on 04/13/17 08: 48; Admin Dose 1 APPLIC; Start 04/12/17 at 11:30 Potassium Phosphate/Sodium Chloride (K Phos (Meq)/NS) 254.5455 ml @ 63.636 m... ONCE ONCE IVPB ; Start 04/13/17 at 09:00; Stop 04/13/17 at 12:59 BRIE HUDSON Apr 13, 2017 10:36
--- NOTE | 2017-04-13 16:20 | PN ---
Date/Time of Note Date/Time of Note DATE: 04/13/17 TIME: 16:16 Assessment/Plan VTE Prophylaxis VTE Prophylaxis Intervention: SCD's Lines/Catheters IV C[facility]ter Type (from [facility] PERMA CATH Urinary Cath still in place: Yes Reason Cath still needed: urinary retention Assessment/Plan Chief Complaint/Hosp Course Patient continues to be on pressors for hemodynamic support, status post hemodialysis today with removal of fluid 3 L, continues on ventilatory support, tolerates feeding. Assessment/Plan 1. Septic shock with Klebsiella bacteremia. Continue antibiotics per ID. Dr. Thurston group is following in infection disease consultation. Continue pressors for blood pressure support. 2. Acute respiratory failure. continue vent support. 3. Diabetes mellitus. Continue Levemir and NovoLog. 4. Systolic heart failure. Continue hemodialysis for fluid removal. 5. End-stage renal disease. Continue hemodialysis. 6. Anoxic encephalopathy. No acute issues. 7. Anemia of chronic disease. Continue Epogen. 8. Hypothyroidism. Continue Synthroid. 9. Dyslipidemia. Continue Lipitor. 10. Possible history of psychosis. Continue Seroquel and trazodone. Further recommendations based on clinical course. Plan of care discussed with Dr. Guerrero. Problems: Exam/Review of Systems Vital Signs Vitals Vital Signs Date Time Temp Pulse Resp B/P Pulse Ox O2 Delivery O2 Flow Rate FiO2 04/13/17 15:07 103 15 100 35 04/13/17 14:45 114/50 04/13/17 12:00 98.6 04/13/17 07:00 Mechanical Ventilator Intake and Output 04/12/17 04/12/17 04/13/17 15:00 23:00 07:00 Intake Total 567.47 ml 274.37 ml 220.00 ml Output Total 3300 ml 0 ml 0 ml Balance -2732.53 ml 274.37 ml 220.00 ml Exam Constitutional: alert, frail Head: normocephalic Neck: other (Tracheostomy), supple Respiratory: diminished breath sounds Cardiovascular: nl pulses Gastrointestinal: non-tender, other (GT), soft Extremities: normal pulses Neurological: nl mental status Results Result Diagram: 04/13/17 0500 04/13/17 0500 Results 24 hrs Laboratory Tests Test 04/12/17 17:30 04/12/17 21:38 04/13/17 01:23 04/13/17 04:59 Bedside Glucose 194 125 156 116 Test 04/13/17 05:00 04/13/17 08:40 04/13/17 11:55 White Blood Count 16.0 H Red Blood Count 2.67 L Hemoglobin 7.9 L Hematocrit 24.4 L Mean Corpuscular Volume 91.4 Mean Corpuscular Hemoglobin 29.6 Mean Corpuscular Hemoglobin Concent 32.4 Red Cell Distribution Width 22.6 H Platelet Count 70 L Mean Platelet Volume 10.8 H Neutrophils % 88.2 H Lymphocytes % 4.1 L Monocytes % 5.0 Eosinophils % 0.0 Basophils % 0.1 Nucleated Red Blood Cells % 0.0 Neutrophils # 14.2 H Lymphocytes # 0.7 L Monocytes # 0.8 Eosinophils # 0.0 Basophils # 0.0 Nucleated Red Blood Cells # 0.0 Sodium Level 134 L Potassium Level 4.1 Chloride Level 99 Carbon Dioxide Level 27 Anion Gap 12 Blood Urea Nitrogen 40 #H Creatinine 1.77 H Glucose Level 104 # Calcium Level 7.5 L Phosphorus Level 2.3 L Magnesium Level 1.7 Bedside Glucose 108 152 Medications Medications Current Medications Atorvastatin Calcium (Lipitor) 20 mg QHS GTB Last administered on 04/12/17 21: 39; Admin Dose 20 MG; Start 04/08/17 at 21:00 Acetaminophen/ Hydrocodone Bitart ([place] (5/325)) 1 tab Q6H PRN GTB SEVERE PAIN LEVEL 7-10 Last administered on 04/12/17 16:40; Admin Dose 1 TAB; Start at 19:30 Albuterol/ Ipratropium (Duoneb) 3 ml Q2H PRN NEB SHORTNESS OF BREATH; Start at 19:30 Lansoprazole (Prevacid) 30 mg DAILY@06 GTB Last administered on 04/13/17 05:56 ; Admin Dose 30 MG; Start 04/09/17 at 06:00 Levothyroxine Sodium (Synthroid) 125 mcg DAILY@06 GTB Last administered on 04/13 05:56; Admin Dose 125 MCG; Start 04/09/17 at 06:00 Lisinopril (Zestril) 2.5 mg BID GTB ; Start 04/08/17 at 21:00; Status Future Hold Metoprolol Tartrate (Lopressor) 25 mg BID GTB Last administered on 04/08/17 21 :30; Admin Dose 25 MG; Start 04/08/17 at 21:00; Status Future Hold Multivit/Ca Carb/ B Cmplx/FA/Prenat (Shayla-Anuradha) 1 tab DAILY GTB Last administered on 04/13/17 08:49; Admin Dose 1 TAB; Start 04/09/17 at 09:00 Quetiapine Fumarate (Seroquel) 25 mg BID GTB Last administered on 04/13/17 08: 49; Admin Dose 25 MG; Start 04/08/17 at 21:00 Trazodone HCl (Desyrel) 25 mg QHS PO Last administered on 04/12/17 21:39; Admin Dose 25 MG; Start 04/08/17 at 21:00 Insulin Detemir (Levemir) 5 unit BID SC Last administered on 04/13/17 09:00; Admin Dose 5 UNIT; Start 04/08/17 at 22:00 Acetaminophen (Tylenol Tab) 650 mg Q4H PRN PO PAIN AND OR ELEVATED TEMP; Start 04/08/17 at 19:30 Morphine Sulfate (morphine) 2 mg Q4H PRN IV PAIN LEVEL 8-10 Last administered on 04/11/17 18:25; Admin Dose 2 MG; Start 04/08/17 at 19:30 Miscellaneous Information 1 ea NOTE XX ; Start 04/08/17 at 20:00 Glucose (Glutose) 15 gm Q15M PRN PO DECREASED GLUCOSE; Start 04/08/17 at 20:00 Glucose (Glutose) 22.5 gm Q15M PRN PO DECREASED GLUCOSE; Start 04/08/17 at 20: 00 Dextrose (D50w Syringe) 25 ml Q15M PRN IV DECREASED GLUCOSE; Start 04/08/17 at 20:00 Dextrose (D50w Syringe) 50 ml Q15M PRN IV DECREASED GLUCOSE; Start 04/08/17 at 20:00 Glucagon (Glucagen) 1 mg Q15M PRN IM DECREASED GLUCOSE; Start 04/08/17 at 20:00 Glucose 15 gm 15 gm Q15M PRN BUCCAL DECREASED GLUCOSE; Start 04/08/17 at 20:00 Norepinephrine/ Dextrose (Levophed/D5W) 500 ml @ 1.87 mls/hr TITRATE IV Last administered on 04/11/17 07:10; Admin Dose 4.5 MLS/HR; Start 04/09/17 at 09:00 Collagenase (Santyl) 1 applic DAILY TOP Last administered on 04/13/17 08:48; Admin Dose 1 APPLIC; Start 04/09/17 at 14:00 Collagenase (Santyl) 1 applic DAILY PRN TOP WHEN SOILED; Start 04/09/17 at 13: 00 IV Flush (NS 10 ml) 10 ml PRN PRN IV FLUSH LINE; Start 04/10/17 at 16:30 Insulin Aspart (Novolog Insulin Pen) NOVOLOG *MODERATE* ALGORITHM Q4 SC Last administered on 04/13/17 12:08; Admin Dose 2 UNIT; Start 04/11/17 at 09:00 Gentamicin Sulfate GENTAMICIN PER PHARMACY NOTE XX ; Start 04/11/17 at 10:30 Meropenem (Merrem 500 Mg/ 100 ml (Pmx)) 100 ml @ 200 mls/hr DAILY IVPB Last administered on 04/13/17 08:47; Admin Dose 200 MLS/HR; Start 04/12/17 at 09:00 Metoclopramide HCl (Reglan Liq) 5 mg Q8 PO Last administered on 04/13/17 15:06 ; Admin Dose 5 MG; Start 04/12/17 at 08:30 Povidone Iodine (Povidone-Iodine) 1 applic DAILY TOP Last administered on 08:48; Admin Dose 1 APPLIC; Start 04/12/17 at 11:30 HIEU DALY Apr 13, 2017 16:20
[2017-04-13] MEDS ORDERED: MAGNESIUM SULFATE 2 GM/50 ML 50 ML IVPB ONE (16:30)
--- NOTE | 2017-04-13 17:27 | CONS ---
Date/Time of Note Date/Time of Note DATE: 04/13/17 TIME: 17:08 Assessment/Plan Assessment/Plan Additional Assessment/Plan - septic shock due to bacteremia (Klebsiella) - bacteremia due to klebsiella, likely from PNA - complicated UTI due to enterobacter - possible HCAP due to klebsiella and pseudomonas, with moderate pleural effusion - acute toxic metabolic encephalopathy - improving - rectal bleeding at [facility] prior to admission, possibly due to radiation proctitis. So far no bleeding after arrival - normocytic anemia - h/o anal CA s/p radiation - diverticulosis without diverticulitis on CT - mild ascites - bloody secretion via trach, possible due to CHF - pulm edema and volume overload - ESRD on HD, via permacath on R chest wall. 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 - ventilator dependent resp failure s/p tracheostomy placement - G tube dependent status - diarrhea; C diff negative - resolved - reported allergy to penicillin and sulfa drugs - reactions unknown recommendations: - pending results: blood cx x2 from HD catheter, TTE - continue meropenem until cultures are finalized - continue gentamicin for pseudomonas, plus double coverage for klebsiella and enterobacter - recommend orthopedic/neurosurgery consult re; potential destructive change at the L4-5 disk space with apparent posterior retropulsion of portion of artificial disk (seen on CT) Management d/w [employer] MANA[employer]ACIO Keita and Dr. Thurston. Critical care time spent: 30 min Consultation Date/Type/Reason Admit Date/Time Apr 08, 2017 at 16:19 Initial Consult Date 04/09/17 Type of Consultation: Pulmonary/critical care Referring Provider: IVAN MALLOY MD 24 HR Interval Summary Free Text/Dictation Remains on 6 mcg/hr levophed. No nausea Nods no to pain or SOB. Motions that she still has nausea. ROS limited due to pt being non-verbal and lethargic. Subjective hx not possible: pt non-verbal, pt critical status Constitutional: requiring IVF, requiring O2 Exam/Review of Systems Vital Signs Vitals Vital Signs Date Time Temp Pulse Resp B/P Pulse Ox O2 Delivery O2 Flow Rate FiO2 04/13/17 16:45 94 15 100 35 04/13/17 14:45 114/50 04/13/17 12:00 98.6 04/13/17 07:00 Mechanical Ventilator Intake and Output 04/12/17 04/12/17 04/13/17 14:59 22:59 06:59 Intake Total 499.66 ml 337.49 ml 245.00 ml Output Total 3300 ml 0 ml 0 ml Balance -2800.34 ml 337.49 ml 245.00 ml Exam Constitutional: alert Cardiovascular: nl pulses Gastrointestinal: non-tender, soft Musculoskeletal: nl extremities to inspection Extremities: normal pulses Neurological: unresponsive Results Result Diagram: 04/13/17 0500 04/13/17 0500 Results 24 hrs Laboratory Tests Test 04/12/17 17:30 04/12/17 21:38 04/13/17 01:23 04/13/17 04:59 Bedside Glucose 194 125 156 116 Test 04/13/17 05:00 04/13/17 08:40 04/13/17 11:55 04/13/17 16:40 White Blood Count 16.0 H Red Blood Count 2.67 L Hemoglobin 7.9 L Hematocrit 24.4 L Mean Corpuscular Volume 91.4 Mean Corpuscular Hemoglobin 29.6 Mean Corpuscular Hemoglobin Concent 32.4 Red Cell Distribution Width 22.6 H Platelet Count 70 L Mean Platelet Volume 10.8 H Neutrophils % 88.2 H Lymphocytes % 4.1 L Monocytes % 5.0 Eosinophils % 0.0 Basophils % 0.1 Nucleated Red Blood Cells % 0.0 Neutrophils # 14.2 H Lymphocytes # 0.7 L Monocytes # 0.8 Eosinophils # 0.0 Basophils # 0.0 Nucleated Red Blood Cells # 0.0 Sodium Level 134 L Potassium Level 4.1 Chloride Level 99 Carbon Dioxide Level 27 Anion Gap 12 Blood Urea Nitrogen 40 #H Creatinine 1.77 H Glucose Level 104 # Calcium Level 7.5 L Phosphorus Level 2.3 L Magnesium Level 1.7 Bedside Glucose 108 152 193 Medications Medications Current Medications Atorvastatin Calcium (Lipitor) 20 mg QHS GTB Last administered on 04/12/17t 21: 39; Admin Dose 20 MG; Start 04/08/17 at 21:00 Acetaminophen/ Hydrocodone Bitart ([place] (5/325)) 1 tab Q6H PRN GTB SEVERE PAIN LEVEL 7-10 Last administered on 04/12/17 16:40; Admin Dose 1 TAB; Start at 19:30 Albuterol/ Ipratropium (Duoneb) 3 ml Q2H PRN NEB SHORTNESS OF BREATH; Start at 19:30 Lansoprazole (Prevacid) 30 mg DAILY@06 GTB Last administered on 04/13/17 05:56 ; Admin Dose 30 MG; Start 04/09/17 at 06:00 Levothyroxine Sodium (Synthroid) 125 mcg DAILY@06 GTB Last administered on 04/13 05:56; Admin Dose 125 MCG; Start 04/09/17 at 06:00 Lisinopril (Zestril) 2.5 mg BID GTB ; Start 04/08/17 at 21:00; Status Future Hold Metoprolol Tartrate (Lopressor) 25 mg BID GTB Last administered on 04/08/17 21 :30; Admin Dose 25 MG; Start 04/08/17 at 21:00; Status Future Hold Multivit/Ca Carb/ B Cmplx/FA/Prenat (Shayla-Anuradha) 1 tab DAILY GTB Last administered on 04/13/17 08:49; Admin Dose 1 TAB; Start 04/09/17 at 09:00 Quetiapine Fumarate (Seroquel) 25 mg BID GTB Last administered on 04/13/17 08: 49; Admin Dose 25 MG; Start 04/08/17 at 21:00 Trazodone HCl (Desyrel) 25 mg QHS PO Last administered on 04/12/17 21:39; Admin Dose 25 MG; Start 04/08/17 at 21:00 Insulin Detemir (Levemir) 5 unit BID SC Last administered on 04/13/17 09:00; Admin Dose 5 UNIT; Start 04/08/17 at 22:00 Acetaminophen (Tylenol Tab) 650 mg Q4H PRN PO PAIN AND OR ELEVATED TEMP; Start 04/08/17 at 19:30 Morphine Sulfate (morphine) 2 mg Q4H PRN IV PAIN LEVEL 8-10 Last administered on 04/11/17 18:25; Admin Dose 2 MG; Start 04/08/17 at 19:30 Miscellaneous Information 1 ea NOTE XX ; Start 04/08/17 at 20:00 Glucose (Glutose) 15 gm Q15M PRN PO DECREASED GLUCOSE; Start 04/08/17 at 20:00 Glucose (Glutose) 22.5 gm Q15M PRN PO DECREASED GLUCOSE; Start 04/08/17 at 20: 00 Dextrose (D50w Syringe) 25 ml Q15M PRN IV DECREASED GLUCOSE; Start 04/08/17 at 20:00 Dextrose (D50w Syringe) 50 ml Q15M PRN IV DECREASED GLUCOSE; Start 04/08/17 at 20:00 Glucagon (Glucagen) 1 mg Q15M PRN IM DECREASED GLUCOSE; Start 04/08/17 at 20:00 Glucose 15 gm 15 gm Q15M PRN BUCCAL DECREASED GLUCOSE; Start 04/08/17 at 20:00 Norepinephrine/ Dextrose (Levophed/D5W) 500 ml @ 1.87 mls/hr TITRATE IV Last administered on 04/13/17 16:55; Admin Dose 11.25 MLS/HR; Start 04/09/17 at 09: 00 Collagenase (Santyl) 1 applic DAILY TOP Last administered on 04/13/17 08:48; Admin Dose 1 APPLIC; Start 04/09/17 at 14:00 Collagenase (Santyl) 1 applic DAILY PRN TOP WHEN SOILED; Start 04/09/17 at 13: 00 IV Flush (NS 10 ml) 10 ml PRN PRN IV FLUSH LINE; Start 04/10/17 at 16:30 Insulin Aspart (Novolog Insulin Pen) NOVOLOG *MODERATE* ALGORITHM Q4 SC Last administered on 04/13/17 16:45; Admin Dose 4 UNIT; Start 04/11/17 at 09:00 Gentamicin Sulfate GENTAMICIN PER PHARMACY NOTE XX ; Start 04/11/17 at 10:30 Meropenem (Merrem 500 Mg/ 100 ml (Pmx)) 100 ml @ 200 mls/hr DAILY IVPB Last administered on 04/13/17 08:47; Admin Dose 200 MLS/HR; Start 04/12/17 at 09:00 Metoclopramide HCl (Reglan Liq) 5 mg Q8 PO Last administered on 04/13/17 15:06 ; Admin Dose 5 MG; Start 04/12/17 at 08:30 Povidone Iodine 1 applic 1 applic DAILY TOP Last administered on 6/28/17at 08: 48; Admin Dose 1 APPLIC; Start 04/12/17 at 11:30 Magnesium Sulfate (Magnesium Sulfate 2 Gm/50 ml) 50 ml @ 25 mls/hr ONCE ONCE IVPB Last administered on 04/13/17t 16:41; Admin Dose 25 MLS/HR; Start at 16:30; Stop 04/13/17 at 18:29 VIRGINIA RODARTE Apr 13, 2017 17:18
[2017-04-13] MEDS: HYDROCODONE/APAP (5/325) TAB GTB PRN (19:59)
--- NOTE | 2017-04-13 20:39 | CONS ---
Date/Time of Note Date/Time of Note DATE: 04/13/17 TIME: 20:10 Assessment/Plan Assessment/Plan Additional Assessment/Plan IMPRESSION: 1. Sepsis. 2. Coronary artery disease with systolic heart failure. Continue hemodialysis to remove fluids. 3. Coronary artery disease, status post coronary artery bypass graft. No active issue. 4. Diabetes. 5. Respiratory failure. Continue vent support. Will obtain a pulmonary consult from [facility]. 6. Hypothyroidism. Will continue Synthroid. 7. Anal cancer with recent rectal bleed. Status post radiation treatment. Her rectal bleeding is most probably from radiation proctitis 8. History of pulseless electrical activity with possible anoxic encephalopathy. Will continue to monitor. 9. History of GI bleed. Will continue proton pump inhibitor. 10. Dyslipidemia. 11. Anasarca, and ascites 12. Renal failure on dialysis 13. Encephalopathy Plan Continue all supportive care Continue antibiotic Increase feeding through the G-tube at 40 cc/h More fluid to be removed during dialysis. Consultation Date/Type/Reason Admit Date/Time Apr 08, 2017 at 16:19 Hx of Present Illness 66-year-old female with a history of end-stage renal disease on dialysis, status post trach on vent, status post PEG, admitted to the intensive care unit for sepsis. Patient also had a rectal bleeding. GI consult was called in for abdominal distention. Patient had both KUB and CAT scan done within the last few days CAT scan was negative for any acute pathology. Patient had some ascites and anasarca. KUB also was negative. Patient is on G-tube feeding at 10 cc/h. Her residual has been around 10 cc. No active bleeding has been noted by the staff in ICU. Review of system unable to do it because of her mental status. Patient is nonverbal and she is on vent. Constitutional: requiring IVF, requiring O2 Eyes: no complaints ENT: no complaints Respiratory: No shortness of breath Cardiovascular: no complaints Gastrointestinal: no complaints Genitourinary: no complaints Musculoskeletal: no complaints Skin: no complaints Neurologic: no complaints Endocrine: no complaints Lymphatic: no complaints Psychological: confusion Immunologic: no complaints Past Medical History Medical History: cancer (Anal cancer treated with radiation), coronary artery disease, renal disease, other (anal CA s/p radiation, vent and G tube dependent) Past Surgical History Past Surgical Hx: other (Status post trach and PEG) Social History Alcohol Use: none Smoking Status: Unknown if ever smoked Drug Use: none Exam/Review of Systems Vital Signs Vitals Vital Signs Date Time Temp Pulse Resp B/P Pulse Ox O2 Delivery O2 Flow Rate FiO2 04/13/17 19:08 99 15 100 35 04/13/17 18:30 99/47 04/13/17 16:00 98.2 04/13/17 07:00 Mechanical Ventilator Intake and Output 04/12/17 04/12/17 04/13/17 15:00 23:00 07:00 Intake Total 567.47 ml 274.37 ml 220.00 ml Output Total 3300 ml 0 ml 0 ml Balance -2732.53 ml 274.37 ml 220.00 ml Exam Constitutional: non-verbal Head: atraumatic, normocephalic Eyes: EOMI, PERRL, nl conjunctiva, nl lids, nl sclera ENMT: nl external ears & nose, nl lips & teeth, nl nasal mucosa & septum Neck: other (Status post tracheostomy) Respiratory: diminished breath sounds Cardiovascular: nl pulses, regular rate and rhythm Gastrointestinal: soft (Abdominal wall edematous, G-tube is in place. No evidence of cellulitis) Musculoskeletal: nl extremities to inspection, nl gait and stance Extremities: edema Neurological: unresponsive Results Result Diagram: 04/13/17 0500 04/13/17 0500 Results 24 hrs Laboratory Tests Test 04/12/17 21:38 04/13/17 01:23 04/13/17 04:59 04/13/17 05:00 Bedside Glucose 125 156 116 White Blood Count 16.0 H Red Blood Count 2.67 L Hemoglobin 7.9 L Hematocrit 24.4 L Mean Corpuscular Volume 91.4 Mean Corpuscular Hemoglobin 29.6 Mean Corpuscular Hemoglobin Concent 32.4 Red Cell Distribution Width 22.6 H Platelet Count 70 L Mean Platelet Volume 10.8 H Neutrophils % 88.2 H Lymphocytes % 4.1 L Monocytes % 5.0 Eosinophils % 0.0 Basophils % 0.1 Nucleated Red Blood Cells % 0.0 Neutrophils # 14.2 H Lymphocytes # 0.7 L Monocytes # 0.8 Eosinophils # 0.0 Basophils # 0.0 Nucleated Red Blood Cells # 0.0 Sodium Level 134 L Potassium Level 4.1 Chloride Level 99 Carbon Dioxide Level 27 Anion Gap 12 Blood Urea Nitrogen 40 #H Creatinine 1.77 H Glucose Level 104 # Calcium Level 7.5 L Phosphorus Level 2.3 L Magnesium Level 1.7 Test 04/13/17 08:40 04/13/17 11:55 04/13/17 16:40 Bedside Glucose 108 152 193 Medications Medications Current Medications Atorvastatin Calcium (Lipitor) 20 mg QHS GTB Last administered on 04/12/17 21: 39; Admin Dose 20 MG; Start 04/08/17 at 21:00 Acetaminophen/ Hydrocodone Bitart ([place] (5/325)) 1 tab Q6H PRN GTB SEVERE PAIN LEVEL 7-10 Last administered on 04/13/17 19:59; Admin Dose 1 TAB; Start at 19:30 Albuterol/ Ipratropium (Duoneb) 3 ml Q2H PRN NEB SHORTNESS OF BREATH; Start at 19:30 Lansoprazole (Prevacid) 30 mg DAILY@06 GTB Last administered on 04/13/17 05:56 ; Admin Dose 30 MG; Start 04/09/17 at 06:00 Levothyroxine Sodium (Synthroid) 125 mcg DAILY@06 GTB Last administered on 04/13 05:56; Admin Dose 125 MCG; Start 04/09/17 at 06:00 Lisinopril (Zestril) 2.5 mg BID GTB ; Start 04/08/17 at 21:00; Status Future Hold Metoprolol Tartrate (Lopressor) 25 mg BID GTB Last administered on 04/08/17 21 :30; Admin Dose 25 MG; Start 04/08/17 at 21:00; Status Future Hold Multivit/Ca Carb/ B Cmplx/FA/Prenat (Shayla-Anuradha) 1 tab DAILY GTB Last administered on 04/13/17 08:49; Admin Dose 1 TAB; Start 04/09/17 at 09:00 Quetiapine Fumarate (Seroquel) 25 mg BID GTB Last administered on 04/13/17 08: 49; Admin Dose 25 MG; Start 04/08/17 at 21:00 Trazodone HCl (Desyrel) 25 mg QHS PO Last administered on 04/12/17 21:39; Admin Dose 25 MG; Start 04/08/17 at 21:00 Insulin Detemir (Levemir) 5 unit BID SC Last administered on 04/13/17 09:00; Admin Dose 5 UNIT; Start 04/08/17 at 22:00 Acetaminophen (Tylenol Tab) 650 mg Q4H PRN PO PAIN AND OR ELEVATED TEMP; Start 04/08/17 at 19:30 Morphine Sulfate (morphine) 2 mg Q4H PRN IV PAIN LEVEL 8-10 Last administered on 04/11/17 18:25; Admin Dose 2 MG; Start 04/08/17 at 19:30 Miscellaneous Information 1 ea NOTE XX ; Start 04/08/17 at 20:00 Glucose (Glutose) 15 gm Q15M PRN PO DECREASED GLUCOSE; Start 04/08/17 at 20:00 Glucose (Glutose) 22.5 gm Q15M PRN PO DECREASED GLUCOSE; Start 04/08/17 at 20: 00 Dextrose (D50w Syringe) 25 ml Q15M PRN IV DECREASED GLUCOSE; Start 04/08/17 at 20:00 Dextrose (D50w Syringe) 50 ml Q15M PRN IV DECREASED GLUCOSE; Start 04/08/17 at 20:00 Glucagon (Glucagen) 1 mg Q15M PRN IM DECREASED GLUCOSE; Start 04/08/17 at 20:00 Glucose 15 gm 15 gm Q15M PRN BUCCAL DECREASED GLUCOSE; Start 04/08/17 at 20:00 Norepinephrine/ Dextrose (Levophed/D5W) 500 ml @ 1.87 mls/hr TITRATE IV Last administered on 04/13/17 16:55; Admin Dose 11.25 MLS/HR; Start 04/09/17 at 09: 00 Collagenase (Santyl) 1 applic DAILY TOP Last administered on 04/13/17 08:48; Admin Dose 1 APPLIC; Start 04/09/17 at 14:00 Collagenase (Santyl) 1 applic DAILY PRN TOP WHEN SOILED; Start 04/09/17 at 13: 00 IV Flush (NS 10 ml) 10 ml PRN PRN IV FLUSH LINE; Start 04/10/17 at 16:30 Insulin Aspart (Novolog Insulin Pen) NOVOLOG *MODERATE* ALGORITHM Q4 SC Last administered on 04/13/17 16:45; Admin Dose 4 UNIT; Start 04/11/17 at 09:00 Gentamicin Sulfate GENTAMICIN PER PHARMACY NOTE XX ; Start 04/11/17 at 10:30 Meropenem (Merrem 500 Mg/ 100 ml (Pmx)) 100 ml @ 200 mls/hr DAILY IVPB Last administered on 04/13/17 08:47; Admin Dose 200 MLS/HR; Start 04/12/17 at 09:00 Metoclopramide HCl (Reglan Liq) 5 mg Q8 PO Last administered on 04/13/17 15:06 ; Admin Dose 5 MG; Start 04/12/17 at 08:30 Povidone Iodine (Povidone-Iodine) 1 applic DAILY TOP Last administered on 08:48; Admin Dose 1 APPLIC; Start 04/12/17 at 11:30 KAIN HOWELL MD Apr 13, 2017 20:17
[2017-04-13] MEDS: traZODone 50 MG TAB PO SCH (21:41)
[2017-04-13] MEDS: ATORVASTATIN 20 MG TAB GTB SCH (21:41)
[2017-04-14] VITALS (88 sets, daily range): BP systolic 80–141; BP diastolic 41–78; PULSE 86–104; RESP 0–18
[2017-04-14] MEDS: INSULIN ASPART [NOVOLOG] 3 ML PEN SC SCH ×6 (02:55→21:00)
[2017-04-14 04:49] LABS: ADD SCAN DIFF NO
[2017-04-14 04:53] LABS: ABNORMAL IP MESSAGE 1; BASOPHILS % 0.2 % (0.0-2.0); HEMATOCRIT 23.9 % (37.0-47.0); HEMOGLOBIN 7.6 g/dl (12.0-16.0); LYMPHOCYTES # 0.7 10^3/ul (0.8-2.9); LYMPHOCYTES % 6.1 % (15.0-51.0); MEAN CORPUSCULAR HEMOGLOBIN 29.6 pg (29.0-33.0); MEAN CORPUSCULAR HGB CONC 31.8 g/dl (32.0-37.0); MEAN PLATELET VOLUME 11.4 fl (7.4-10.4); MONOCYTE # 0.6 10^3/ul (0.3-0.9); MONOCYTES % 4.8 % (0.0-11.0); NEUTROPHIL # 9.9 10^3/ul (1.6-7.5); NEUTROPHILS % 82.2 % (39.0-77.0); RED BLOOD COUNT 2.57 10^6/ul (4.20-5.40); RED CELL DISTRIBUTION WIDTH 22.5 % (11.5-14.5)
[2017-04-14 04:55] LABS: PLATELET COUNT 71 10^3/UL (140-415)
[2017-04-14] MEDS: LEVOTHYROXINE 125 MCG TAB GTB SCH (05:04)
[2017-04-14] MEDS: METOCLOPRAMIDE (1 MG/ML) 10 ML CUP PO SCH ×3 (05:04→21:32)
[2017-04-14] MEDS: LANSOPRAZOLE 30 MG CAP GTB SCH (05:04)
[2017-04-14 05:18] LABS: CREATININE 1.68 mg/dl (0.44-1.00); MAGNESIUM 2.2 mg/dl (1.7-2.5); PHOSPHORUS 2.8 mg/dl (2.5-4.9)
[2017-04-14] MEDS ORDERED: EPOETIN 10000 UNITS/1 ML INJ (ESRD) SC SCH ×2 (08:00)
--- NOTE | 2017-04-14 08:22 | PN ---
Date/Time of Note Date/Time of Note DATE: 04/14/17 TIME: 08:20 Assessment/Plan VTE Prophylaxis VTE Prophylaxis Intervention: ambulation Lines/Catheters IV [facility]from [facility] PERMACATH Urinary Cath still in place: Yes Reason Cath still needed: urinary retention Assessment/Plan Chief Complaint/Hosp Course 1. End-stage renal disease. The patient is receiving daily dialysis for solute clearance and volume removal. Plan for ultrafiltration today for 2 hours. 2. Anemia of chronic disease. Continue to monitor hemoglobin and hematocrit levels. Continue Epogen with hemodialysis. 3. Mineral bone disorder. Monitor calcium phosphorus levels 4. Hyponatremia secondary to end-stage renal disease, improved 5. Hypokalemia, improved 6. Septic shock, etiology is multifactorial secondary to urinary tract infection and pneumonia. Continue current broad spectrum antibiotics, continue pressor support. 7. Ventilator dependent respiratory failure. Vent settings have been reviewed. ABG have been reviewed. Continue to monitor. 8. Dysphagia status post percutaneous endoscopic gastrostomy. Continue tube feeding. 9. History of coronary artery disease. 10. Diabetes. Continue Accu-Cheks and sliding scale. 11. Hypothyroidism. Continue Synthroid. 12. History of anal cancer. 13. Acute on chronic encephalopathy, etiology is toxic metabolic. Continue to monitor. 14. Volume overload secondary to congestive heart failure, end-stage renal disease. Continue ultrafiltration with dialysis. Problems: Subjective 24 Hr Interval Summary Free Text/Dictation Patient remains critical on pressure support. Plan for dialysis today. Exam/Review of Systems Vital Signs Vitals Vital Signs Date Time Temp Pulse Resp B/P Pulse Ox O2 Delivery O2 Flow Rate FiO2 04/14/17 05:10 99 14 100 35 04/14/17 04:30 104/49 Mechanical Ventilator 04/14/17 04:00 98.5 Intake and Output 04/13/17 04/13/17 04/14/17 15:00 23:00 07:00 Intake Total 992.50 ml 435.7955 ml 433.75 ml Output Total 3510 ml 20 ml Balance -2517.50 ml 435.7955 ml 413.75 ml Exam HEENT: Head is normocephalic. NECK: Supple. HEART: Regular rate. LUNGS: Show diminished breath sounds at base. ABDOMEN: Soft, nontender to palpation. No rebound or guarding. EXTREMITIES: Negative for clubbing, cyanosis. Positive edema. DERMATOLOGIC: No rashes. MUSCULOSKELETAL: No joint effusions. NEUROLOGIC: No change in exam Results Result Diagram: 04/14/17 0400 04/14/17 0400 Results 24 hrs Laboratory Tests Test 04/13/17 08:40 04/13/17 11:55 04/13/17 16:40 04/13/17 21:43 Bedside Glucose 108 152 193 173 Test 04/14/17 02:53 04/14/17 04:00 04/14/17 05:03 Bedside Glucose 179 213 White Blood Count 12.0 #H Red Blood Count 2.57 L Hemoglobin 7.6 L Hematocrit 23.9 L Mean Corpuscular Volume 93.0 Mean Corpuscular Hemoglobin 29.6 Mean Corpuscular Hemoglobin Concent 31.8 L Red Cell Distribution Width 22.5 H Platelet Count 71 L Mean Platelet Volume 11.4 H Neutrophils % 82.2 H Lymphocytes % 6.1 L Monocytes % 4.8 Eosinophils % 0.0 Basophils % 0.2 Nucleated Red Blood Cells % 0.0 Neutrophils # 9.9 H Lymphocytes # 0.7 L Monocytes # 0.6 Eosinophils # 0.0 Basophils # 0.0 Nucleated Red Blood Cells # 0.0 Sodium Level 141 Potassium Level 4.0 Chloride Level 104 Carbon Dioxide Level 26 Anion Gap 15 Blood Urea Nitrogen 36 H Creatinine 1.68 H Glucose Level 177 Calcium Level 8.0 L Phosphorus Level 2.8 Magnesium Level 2.2 Medications Medications Current Medications Atorvastatin Calcium (Lipitor) 20 mg QHS GTB Last administered on 04/13/17 21: 41; Admin Dose 20 MG; Start 04/08/17 at 21:00 Acetaminophen/ Hydrocodone Bitart ([place] (5/325)) 1 tab Q6H PRN GTB SEVERE PAIN LEVEL 7-10 Last administered on 04/13/17 19:59; Admin Dose 1 TAB; Start at 19:30 Albuterol/ Ipratropium (Duoneb) 3 ml Q2H PRN NEB SHORTNESS OF BREATH; Start at 19:30 Lansoprazole (Prevacid) 30 mg DAILY@06 GTB Last administered on 04/14/17 05:04 ; Admin Dose 30 MG; Start 04/09/17 at 06:00 Levothyroxine Sodium (Synthroid) 125 mcg DAILY@06 GTB Last administered on 04/14 05:04; Admin Dose 125 MCG; Start 04/09/17 at 06:00 Lisinopril (Zestril) 2.5 mg BID GTB ; Start 04/08/17 at 21:00; Status Future Hold Metoprolol Tartrate (Lopressor) 25 mg BID GTB Last administered on 04/08/17 21 :30; Admin Dose 25 MG; Start 04/08/17 at 21:00; Status Future Hold Multivit/Ca Carb/ B Cmplx/FA/Prenat (Shayla-Anuradha) 1 tab DAILY GTB Last administered on 04/13/17 08:49; Admin Dose 1 TAB; Start 04/09/17 at 09:00 Quetiapine Fumarate (Seroquel) 25 mg BID GTB Last administered on 04/13/17 21: 41; Admin Dose 25 MG; Start 04/08/17 at 21:00 Trazodone HCl (Desyrel) 25 mg QHS PO Last administered on 04/13/17 21:41; Admin Dose 25 MG; Start 04/08/17 at 21:00 Insulin Detemir (Levemir) 5 unit BID SC Last administered on 04/13/17 21:46; Admin Dose 5 UNIT; Start 04/08/17 at 22:00 Acetaminophen (Tylenol Tab) 650 mg Q4H PRN PO PAIN AND OR ELEVATED TEMP; Start 04/08/17 at 19:30 Morphine Sulfate (morphine) 2 mg Q4H PRN IV PAIN LEVEL 8-10 Last administered on 04/11/17 18:25; Admin Dose 2 MG; Start 04/08/17 at 19:30 Miscellaneous Information 1 ea NOTE XX ; Start 04/08/17 at 20:00 Glucose (Glutose) 15 gm Q15M PRN PO DECREASED GLUCOSE; Start 04/08/17 at 20:00 Glucose (Glutose) 22.5 gm Q15M PRN PO DECREASED GLUCOSE; Start 04/08/17 at 20: 00 Dextrose (D50w Syringe) 25 ml Q15M PRN IV DECREASED GLUCOSE; Start 04/08/17 at 20:00 Dextrose (D50w Syringe) 50 ml Q15M PRN IV DECREASED GLUCOSE; Start 04/08/17 at 20:00 Glucagon (Glucagen) 1 mg Q15M PRN IM DECREASED GLUCOSE; Start 04/08/17 at 20:00 Glucose 15 gm 15 gm Q15M PRN BUCCAL DECREASED GLUCOSE; Start 04/08/17 at 20:00 Norepinephrine/ Dextrose (Levophed/D5W) 500 ml @ 1.87 mls/hr TITRATE IV Last administered on 04/13/17 16:55; Admin Dose 11.25 MLS/HR; Start 04/09/17 at 09: 00 Collagenase (Santyl) 1 applic DAILY TOP Last administered on 04/13/17 08:48; Admin Dose 1 APPLIC; Start 04/09/17 at 14:00 Collagenase (Santyl) 1 applic DAILY PRN TOP WHEN SOILED; Start 04/09/17 at 13: 00 IV Flush (NS 10 ml) 10 ml PRN PRN IV FLUSH LINE; Start 04/10/17 at 16:30 Insulin Aspart (Novolog Insulin Pen) NOVOLOG *MODERATE* ALGORITHM Q4 SC Last administered on 04/14/17 05:18; Admin Dose 4 UNIT; Start 04/11/17 at 09:00 Gentamicin Sulfate GENTAMICIN PER PHARMACY NOTE XX ; Start 04/11/17 at 10:30 Meropenem (Merrem 500 Mg/ 100 ml (Pmx)) 100 ml @ 200 mls/hr DAILY IVPB Last administered on 04/13/17 08:47; Admin Dose 200 MLS/HR; Start 04/12/17 at 09:00 Metoclopramide HCl (Reglan Liq) 5 mg Q8 PO Last administered on 04/14/17 05:04 ; Admin Dose 5 MG; Start 04/12/17 at 08:30 Povidone Iodine (Povidone-Iodine) 1 applic DAILY TOP Last administered on 08:48; Admin Dose 1 APPLIC; Start 04/12/17 at 11:30 Epoetin Chip (Epogen (Esrd)) 10,000 units ONCE SC ; Start 04/14/17 at 08:00; Stop 04/14/17 at 14:00 ANJELICA SANCHEZ DO Apr 14, 2017 08:22
[2017-04-14] MEDS: MULTIVIT/CA CARB/B CMPLX/FA TAB GTB SCH (09:21)
[2017-04-14] MEDS: MEROPENEM 500 MG/100 ML (PMX) 100 ML IVPB SCH (09:21)
[2017-04-14] MEDS: QUETIAPINE 25 MG TAB GTB SCH ×2 (09:21→21:32)
[2017-04-14] MEDS: INSULIN DETEMIR [LEVEMIR] 3ML CART SC SCH ×2 (09:27→21:37)
--- NOTE | 2017-04-14 09:32 | CONS ---
Date/Time of Note Date/Time of Note DATE: 04/14/17 TIME: 09:30 Assessment/Plan Assessment/Plan Additional Assessment/Plan Ventilator setting; AC of 14, tidal volume 500, PEEP of 5, 35% FiO2. Patient currently on Levophed at 6 mics per minute. Assessment recommendations; 1. Patient admitted with pulmonary edema and bilateral pneumonia with sepsis. Improving gradually. 2. History of prior CABG. 3. Chronic renal failure, on hemodialysis. 4. History of hypo-thyroidism. 5. Chronic respiratory failure patient remains ventilator dependent. Continue current supportive care. Consultation Date/Type/Reason Admit Date/Time Apr 08, 2017 at 16:19 Initial Consult Date 04/09/17 Type of Consultation: Pulmonary/critical care Referring Provider: IVAN MALLOY MD 24 HR Interval Summary Free Text/Dictation Patient condition remains critical but stable. Still requiring low-dose Levophed for blood pressure maintenance. Patient remains awake and alert. General exam; elderly lady, on ventilator via tracheostomy currently in no distress. Awake and alert. Exam/Review of Systems Vital Signs Vitals Vital Signs Date Time Temp Pulse Resp B/P Pulse Ox O2 Delivery O2 Flow Rate FiO2 04/14/17 05:10 99 14 100 35 04/14/17 04:30 104/49 Mechanical Ventilator 04/14/17 04:00 98.5 Intake and Output 04/13/17 04/13/17 04/14/17 15:00 23:00 07:00 Intake Total 992.50 ml 435.7955 ml 433.75 ml Output Total 3510 ml 20 ml Balance -2517.50 ml 435.7955 ml 413.75 ml Exam HEENT exam; supple neck, positive JVD. No lymphadenopathy. Midline trachea. No thyromegaly. Patient is edentulous. Pupils are small bilaterally. The colostomy in place with clean insertion site. Chest exam; diminished but clear vessel. S1-S2 audible, no murmurs. Regular rhythm. There is a well-healed sternal scar. Abdomen exam; soft, nondistended. G-tube in place. Bowel sounds audible. Extremity exam; no peripheral edema. She does have multiple ecchymosis involving all 4 extremities. Pulses 1+ bilaterally. 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 Results Result Diagram: 6/29/17 0400 6/29/17 0400 Results 24 hrs Laboratory Tests Test 04/13/17 11:55 04/13/17 16:40 04/13/17 21:43 04/14/17 02:53 Bedside Glucose 152 193 173 179 Test 04/14/17 04:00 04/14/17 05:03 White Blood Count 12.0 #H Red Blood Count 2.57 L Hemoglobin 7.6 L Hematocrit 23.9 L Mean Corpuscular Volume 93.0 Mean Corpuscular Hemoglobin 29.6 Mean Corpuscular Hemoglobin Concent 31.8 L Red Cell Distribution Width 22.5 H Platelet Count 71 L Mean Platelet Volume 11.4 H Neutrophils % 82.2 H Lymphocytes % 6.1 L Monocytes % 4.8 Eosinophils % 0.0 Basophils % 0.2 Nucleated Red Blood Cells % 0.0 Neutrophils # 9.9 H Lymphocytes # 0.7 L Monocytes # 0.6 Eosinophils # 0.0 Basophils # 0.0 Nucleated Red Blood Cells # 0.0 Sodium Level 141 Potassium Level 4.0 Chloride Level 104 Carbon Dioxide Level 26 Anion Gap 15 Blood Urea Nitrogen 36 H Creatinine 1.68 H Glucose Level 177 Calcium Level 8.0 L Phosphorus Level 2.8 Magnesium Level 2.2 Bedside Glucose 213 Medications Medications Current Medications Atorvastatin Calcium (Lipitor) 20 mg QHS GTB Last administered on 04/13/17 21: 41; Admin Dose 20 MG; Start 04/08/17 at 21:00 Acetaminophen/ Hydrocodone Bitart ([place] (5/325)) 1 tab Q6H PRN GTB SEVERE PAIN LEVEL 7-10 Last administered on 04/13/17 19:59; Admin Dose 1 TAB; Start at 19:30 Albuterol/ Ipratropium (Duoneb) 3 ml Q2H PRN NEB SHORTNESS OF BREATH; Start at 19:30 Lansoprazole (Prevacid) 30 mg DAILY@06 GTB Last administered on 04/14/17 05:04 ; Admin Dose 30 MG; Start 04/09/17 at 06:00 Levothyroxine Sodium (Synthroid) 125 mcg DAILY@06 GTB Last administered on 04/14 05:04; Admin Dose 125 MCG; Start 04/09/17 at 06:00 Lisinopril (Zestril) 2.5 mg BID GTB ; Start 04/08/17 at 21:00; Status Future Hold Metoprolol Tartrate (Lopressor) 25 mg BID GTB Last administered on 04/08/17 21 :30; Admin Dose 25 MG; Start 04/08/17 at 21:00; Status Future Hold Multivit/Ca Carb/ B Cmplx/FA/Prenat (Shayla-Anuradha) 1 tab DAILY GTB Last administered on 04/14/17 09:21; Admin Dose 1 TAB; Start 04/09/17 at 09:00 Quetiapine Fumarate (Seroquel) 25 mg BID GTB Last administered on 04/14/17 09: 21; Admin Dose 25 MG; Start 04/08/17 at 21:00 Trazodone HCl (Desyrel) 25 mg QHS PO Last administered on 04/13/17 21:41; Admin Dose 25 MG; Start 04/08/17 at 21:00 Insulin Detemir (Levemir) 5 unit BID SC Last administered on 04/14/17 09:27; Admin Dose 5 UNIT; Start 04/08/17 at 22:00 Acetaminophen (Tylenol Tab) 650 mg Q4H PRN PO PAIN AND OR ELEVATED TEMP; Start 04/08/17 at 19:30 Morphine Sulfate (morphine) 2 mg Q4H PRN IV PAIN LEVEL 8-10 Last administered on 04/11/17 18:25; Admin Dose 2 MG; Start 04/08/17 at 19:30 Miscellaneous Information 1 ea NOTE XX ; Start 04/08/17 at 20:00 Glucose (Glutose) 15 gm Q15M PRN PO DECREASED GLUCOSE; Start 04/08/17 at 20:00 Glucose (Glutose) 22.5 gm Q15M PRN PO DECREASED GLUCOSE; Start 04/08/17 at 20: 00 Dextrose (D50w Syringe) 25 ml Q15M PRN IV DECREASED GLUCOSE; Start 04/08/17 at 20:00 Dextrose (D50w Syringe) 50 ml Q15M PRN IV DECREASED GLUCOSE; Start 04/08/17 at 20:00 Glucagon (Glucagen) 1 mg Q15M PRN IM DECREASED GLUCOSE; Start 04/08/17 at 20:00 Glucose 15 gm 15 gm Q15M PRN BUCCAL DECREASED GLUCOSE; Start 04/08/17 at 20:00 Norepinephrine/ Dextrose (Levophed/D5W) 500 ml @ 1.87 mls/hr TITRATE IV Last administered on 04/13/17 16:55; Admin Dose 11.25 MLS/HR; Start 04/09/17 at 09: 00 Collagenase (Santyl) 1 applic DAILY TOP Last administered on 04/13/17 08:48; Admin Dose 1 APPLIC; Start 04/09/17 at 14:00 Collagenase (Santyl) 1 applic DAILY PRN TOP WHEN SOILED; Start 04/09/17 at 13: 00 IV Flush (NS 10 ml) 10 ml PRN PRN IV FLUSH LINE; Start 04/10/17 at 16:30 Insulin Aspart (Novolog Insulin Pen) NOVOLOG *MODERATE* ALGORITHM Q4 SC Last administered on 04/14/17 05:18; Admin Dose 4 UNIT; Start 04/11/17 at 09:00 Gentamicin Sulfate GENTAMICIN PER PHARMACY NOTE XX ; Start 04/11/17 at 10:30 Meropenem (Merrem 500 Mg/ 100 ml (Pmx)) 100 ml @ 200 mls/hr DAILY IVPB Last administered on 04/14/17 09:21; Admin Dose 200 MLS/HR; Start 04/12/17 at 09:00 Metoclopramide HCl (Reglan Liq) 5 mg Q8 PO Last administered on 04/14/17 05:04 ; Admin Dose 5 MG; Start 04/12/17 at 08:30 Povidone Iodine (Povidone-Iodine) 1 applic DAILY TOP Last administered on 08:48; Admin Dose 1 APPLIC; Start 04/12/17 at 11:30 Epoetin Chip (Epogen (Esrd)) 10,000 units ONCE SC ; Start 04/14/17 at 08:00; Stop 04/14/17 at 14:00 BRIE HUDSON Apr 14, 2017 09:32
[2017-04-14] MEDS: POVIDONE IODINE 10% 28.4 GM OINT TOP SCH (09:33)
[2017-04-14] MEDS: BALSAM PERU/CASTOR OIL 60 GM TUBE TOP SCH ×2 (09:33→21:33)
[2017-04-14] MEDS: COLLAGENASE 30 GM TUBE TOP SCH (09:34)
[2017-04-14] MEDS: ALBUMIN HUMAN 25% 100 ML IV PRN (12:26)
[2017-04-14] MEDS: GENTAMICIN 80 MG/NS (PMX) 50 ML IVPB SCH (16:51)
--- NOTE | 2017-04-14 18:08 | CONS ---
Date/Time of Note Date/Time of Note DATE: 04/14/17 TIME: 18:05 Assessment/Plan Assessment/Plan Chief Complaint/Hosp Course 66-year-old female with a history of end-stage renal disease on dialysis, status post trach on vent, status post PEG, admitted to the intensive care unit for sepsis. Patient also had a rectal bleeding. GI consult was called in for abdominal distention. Patient had both KUB and CAT scan done within the last few days CAT scan was negative for any acute pathology. Patient had some ascites and anasarca. KUB also was negative. Patient is on G-tube feeding at 10 cc/h. Her residual has been around 10 cc. No active bleeding has been noted by the staff in ICU. Problems: Additional Assessment/Plan IMPRESSION: 1. Sepsis. 2. Coronary artery disease with systolic heart failure. Continue hemodialysis to remove fluids. 3. Coronary artery disease, status post coronary artery bypass graft. No active issue. 4. Diabetes. 5. Respiratory failure. Continue vent support. Will obtain a pulmonary consult from [facility]. 6. Hypothyroidism. Will continue Synthroid. 7. Anal cancer with recent rectal bleed. Status post radiation treatment. Her rectal bleeding is most probably from radiation proctitis 8. History of pulseless electrical activity with possible anoxic encephalopathy. Will continue to monitor. 9. History of GI bleed. Will continue proton pump inhibitor. 10. Dyslipidemia. 11. Anasarca, and ascites 12. Renal failure on dialysis 13. Encephalopathy, resolved patient is alert awake and oriented Plan Continue all supportive care Continue antibiotic Increase feeding through the G-tube at 40 cc/h, which patient is tolerating well More fluid to be removed during dialysis. Consultation Date/Type/Reason Admit Date/Time Apr 08, 2017 at 16:19 Initial Consult Date 04/09/17 Type of Consultation: Pulmonary/critical care Referring Provider: IVAN MALLOY MD 24 HR Interval Summary Free Text/Dictation Patient is now awake and communicating No nausea no vomiting Exam/Review of Systems Vital Signs Vitals Vital Signs Date Time Temp Pulse Resp B/P Pulse Ox O2 Delivery O2 Flow Rate FiO2 04/14/17 17:00 95 14 100 35 04/14/17 16:30 116/49 04/14/17 16:00 98.7 04/14/17 04:30 Mechanical Ventilator Intake and Output 6/04/13/17 04/14/17 15:00 23:00 07:00 Intake Total 992.50 ml 435.7955 ml 473.75 ml Output Total 3510 ml 20 ml Balance -2517.50 ml 435.7955 ml 453.75 ml Exam Constitutional: alert, oriented, well developed Eyes: EOMI, PERRL, nl conjunctiva, nl lids, nl sclera Neck: non-tender, supple Respiratory: other (Patient is on vent) Gastrointestinal: nl liver, spleen, non-tender, soft Skin: nl turgor, No rash or lesions Results Result Diagram: 04/14/17 0400 04/14/17 0400 Results 24 hrs Laboratory Tests Test 04/13/17 21:43 04/14/17 02:53 04/14/17 04:00 04/14/17 05:03 Bedside Glucose 173 179 213 White Blood Count 12.0 #H Red Blood Count 2.57 L Hemoglobin 7.6 L Hematocrit 23.9 L Mean Corpuscular Volume 93.0 Mean Corpuscular Hemoglobin 29.6 Mean Corpuscular Hemoglobin Concent 31.8 L Red Cell Distribution Width 22.5 H Platelet Count 71 L Mean Platelet Volume 11.4 H Neutrophils % 82.2 H Lymphocytes % 6.1 L Monocytes % 4.8 Eosinophils % 0.0 Basophils % 0.2 Nucleated Red Blood Cells % 0.0 Neutrophils # 9.9 H Lymphocytes # 0.7 L Monocytes # 0.6 Eosinophils # 0.0 Basophils # 0.0 Nucleated Red Blood Cells # 0.0 Sodium Level 141 Potassium Level 4.0 Chloride Level 104 Carbon Dioxide Level 26 Anion Gap 15 Blood Urea Nitrogen 36 H Creatinine 1.68 H Glucose Level 177 Calcium Level 8.0 L Phosphorus Level 2.8 Magnesium Level 2.2 Test 04/14/17 09:25 04/14/17 12:31 04/14/17 17:22 Bedside Glucose 213 196 155 Medications Medications Current Medications Atorvastatin Calcium (Lipitor) 20 mg QHS GTB Last administered on 04/13/17 21: 41; Admin Dose 20 MG; Start 04/08/17 at 21:00 Acetaminophen/ Hydrocodone Bitart ([employer] (5/325)) 1 tab Q6H PRN GTB SEVERE PAIN LEVEL 7-10 Last administered on 04/13/17 19:59; Admin Dose 1 TAB; Start at 19:30 Albuterol/ Ipratropium (Duoneb) 3 ml Q2H PRN NEB SHORTNESS OF BREATH; Start at 19:30 Lansoprazole (Prevacid) 30 mg DAILY@06 GTB Last administered on 04/14/17 05:04 ; Admin Dose 30 MG; Start 04/09/17 at 06:00 Levothyroxine Sodium (Synthroid) 125 mcg DAILY@06 GTB Last administered on 04/14 05:04; Admin Dose 125 MCG; Start 04/09/17 at 06:00 Lisinopril (Zestril) 2.5 mg BID GTB ; Start 04/08/17 at 21:00; Status Future Hold Metoprolol Tartrate (Lopressor) 25 mg BID GTB Last administered on 04/08/17 21 :30; Admin Dose 25 MG; Start 04/08/17 at 21:00; Status Future Hold Multivit/Ca Carb/ B Cmplx/FA/Prenat (Shayla-Anuradha) 1 tab DAILY GTB Last administered on 04/14/17 09:21; Admin Dose 1 TAB; Start 04/09/17 at 09:00 Quetiapine Fumarate (Seroquel) 25 mg BID GTB Last administered on 04/14/17 09: 21; Admin Dose 25 MG; Start 04/08/17 at 21:00 Trazodone HCl (Desyrel) 25 mg QHS PO Last administered on 04/13/17 21:41; Admin Dose 25 MG; Start 04/08/17 at 21:00 Insulin Detemir (Levemir) 5 unit BID SC Last administered on 04/14/17 09:27; Admin Dose 5 UNIT; Start 04/08/17 at 22:00 Acetaminophen (Tylenol Tab) 650 mg Q4H PRN PO PAIN AND OR ELEVATED TEMP; Start 04/08/17 at 19:30 Morphine Sulfate (morphine) 2 mg Q4H PRN IV PAIN LEVEL 8-10 Last administered on 04/11/17 18:25; Admin Dose 2 MG; Start 04/08/17 at 19:30 Miscellaneous Information 1 ea NOTE XX ; Start 04/08/17 at 20:00 Glucose (Glutose) 15 gm Q15M PRN PO DECREASED GLUCOSE; Start 04/08/17 at 20:00 Glucose (Glutose) 22.5 gm Q15M PRN PO DECREASED GLUCOSE; Start 04/08/17 at 20: 00 Dextrose (D50w Syringe) 25 ml Q15M PRN IV DECREASED GLUCOSE; Start 04/08/17 at 20:00 Dextrose (D50w Syringe) 50 ml Q15M PRN IV DECREASED GLUCOSE; Start 04/08/17 at 20:00 Glucagon (Glucagen) 1 mg Q15M PRN IM DECREASED GLUCOSE; Start 04/08/17 at 20:00 Glucose 15 gm 15 gm Q15M PRN BUCCAL DECREASED GLUCOSE; Start 04/08/17 at 20:00 Norepinephrine/ Dextrose (Levophed/D5W) 500 ml @ 1.87 mls/hr TITRATE IV Last administered on 04/13/17 16:55; Admin Dose 11.25 MLS/HR; Start 04/09/17 at 09: 00 Collagenase (Santyl) 1 applic DAILY TOP Last administered on 04/14/17 09:34; Admin Dose 1 APPLIC; Start 04/09/17 at 14:00 Collagenase (Santyl) 1 applic DAILY PRN TOP WHEN SOILED; Start 04/09/17 at 13: 00 IV Flush (NS 10 ml) 10 ml PRN PRN IV FLUSH LINE; Start 04/10/17 at 16:30 Insulin Aspart (Novolog Insulin Pen) NOVOLOG *MODERATE* ALGORITHM Q4 SC Last administered on 04/14/17 17:25; Admin Dose 2 UNIT; Start 04/11/17 at 09:00 Gentamicin Sulfate GENTAMICIN PER PHARMACY NOTE XX ; Start 04/11/17 at 10:30 Meropenem (Merrem 500 Mg/ 100 ml (Pmx)) 100 ml @ 200 mls/hr DAILY IVPB Last administered on 04/14/17 09:21; Admin Dose 200 MLS/HR; Start 04/12/17 at 09:00 Metoclopramide HCl (Reglan Liq) 5 mg Q8 PO Last administered on 04/14/17 16:32 ; Admin Dose 5 MG; Start 04/12/17 at 08:30 Povidone Iodine (Povidone-Iodine) 1 applic DAILY TOP Last administered on 09:33; Admin Dose 1 APPLIC; Start 04/12/17 at 11:30 KAIN HOWELL MD Apr 14, 2017 18:08
--- NOTE | 2017-04-14 18:56 | CONS ---
Date/Time of Note Date/Time of Note DATE: 04/14/17 TIME: 18:56 Assessment/Plan Assessment/Plan Chief Complaint/Hosp Course - septic shock due to bacteremia (Klebsiella) - bacteremia due to klebsiella, likely from PNA - complicated UTI due to enterobacter - possible HCAP due to klebsiella and pseudomonas, with moderate pleural effusion - acute toxic metabolic encephalopathy - improving - rectal bleeding at [facility] prior to admission, possibly due to radiation proctitis. So far no bleeding after arrival - normocytic anemia - h/o anal CA s/p radiation - diverticulosis without diverticulitis on CT - mild ascites - bloody secretion via trach, possible due to CHF - pulm edema and volume overload - ESRD on HD, via permacath on R chest wall. 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 - ventilator dependent resp failure s/p tracheostomy placement - G tube dependent status - diarrhea; C diff negative - resolved - reported allergy to penicillin and sulfa drugs - reactions unknown recommendations: - pending results: blood cx x2 from HD catheter, TTE - continue meropenem until cultures are finalized - continue gentamicin for pseudomonas, plus double coverage for klebsiella and enterobacter - recommend orthopedic/neurosurgery consult re; potential destructive change at the L4-5 disk space with apparent posterior retropulsion of portion of artificial disk (seen on CT) Problems: Consultation Date/Type/Reason Admit Date/Time Apr 08, 2017 at 16:19 Initial Consult Date 04/09/17 Type of Consultation: id Referring Provider: IVAN MALLOY MD Exam/Review of Systems Vital Signs Vitals Vital Signs Date Time Temp Pulse Resp B/P Pulse Ox O2 Delivery O2 Flow Rate FiO2 04/14/17 18:45 95 16 122/53 100 04/14/17 17:00 35 04/14/17 16:00 98.7 04/14/17 04:30 Mechanical Ventilator Intake and Output 04/13/17 04/13/17 04/14/17 15:00 23:00 07:00 Intake Total 992.50 ml 435.7955 ml 473.75 ml Output Total 3510 ml 20 ml Balance -2517.50 ml 435.7955 ml 453.75 ml Results Result Diagram: 04/14/17 0400 04/14/17 0400 Results 24 hrs Laboratory Tests Test 04/13/17 21:43 04/14/17 02:53 04/14/17 04:00 04/14/17 05:03 Bedside Glucose 173 179 213 White Blood Count 12.0 #H Red Blood Count 2.57 L Hemoglobin 7.6 L Hematocrit 23.9 L Mean Corpuscular Volume 93.0 Mean Corpuscular Hemoglobin 29.6 Mean Corpuscular Hemoglobin Concent 31.8 L Red Cell Distribution Width 22.5 H Platelet Count 71 L Mean Platelet Volume 11.4 H Neutrophils % 82.2 H Lymphocytes % 6.1 L Monocytes % 4.8 Eosinophils % 0.0 Basophils % 0.2 Nucleated Red Blood Cells % 0.0 Neutrophils # 9.9 H Lymphocytes # 0.7 L Monocytes # 0.6 Eosinophils # 0.0 Basophils # 0.0 Nucleated Red Blood Cells # 0.0 Sodium Level 141 Potassium Level 4.0 Chloride Level 104 Carbon Dioxide Level 26 Anion Gap 15 Blood Urea Nitrogen 36 H Creatinine 1.68 H Glucose Level 177 Calcium Level 8.0 L Phosphorus Level 2.8 Magnesium Level 2.2 Test 04/14/17 09:25 04/14/17 12:31 04/14/17 17:22 Bedside Glucose 213 196 155 Medications Medications Current Medications Atorvastatin Calcium (Lipitor) 20 mg QHS GTB Last administered on 04/13/17 21: 41; Admin Dose 20 MG; Start 04/08/17 at 21:00 Acetaminophen/ Hydrocodone Bitart ([place] (5/325)) 1 tab Q6H PRN GTB SEVERE PAIN LEVEL 7-10 Last administered on 04/13/17 19:59; Admin Dose 1 TAB; Start at 19:30 Albuterol/ Ipratropium (Duoneb) 3 ml Q2H PRN NEB SHORTNESS OF BREATH; Start at 19:30 Lansoprazole (Prevacid) 30 mg DAILY@06 GTB Last administered on 04/14/17 05:04 ; Admin Dose 30 MG; Start 04/09/17 at 06:00 Levothyroxine Sodium (Synthroid) 125 mcg DAILY@06 GTB Last administered on 04/14 05:04; Admin Dose 125 MCG; Start 04/09/17 at 06:00 Lisinopril (Zestril) 2.5 mg BID GTB ; Start 04/08/17 at 21:00; Status Future Hold Metoprolol Tartrate (Lopressor) 25 mg BID GTB Last administered on 04/08/17 21 :30; Admin Dose 25 MG; Start 04/08/17 at 21:00; Status Future Hold Multivit/Ca Carb/ B Cmplx/FA/Prenat (Shayla-Anuradha) 1 tab DAILY GTB Last administered on 04/14/17 09:21; Admin Dose 1 TAB; Start 04/09/17 at 09:00 Quetiapine Fumarate (Seroquel) 25 mg BID GTB Last administered on 04/14/17 09: 21; Admin Dose 25 MG; Start 04/08/17 at 21:00 Trazodone HCl (Desyrel) 25 mg QHS PO Last administered on 04/13/17 21:41; Admin Dose 25 MG; Start 04/08/17 at 21:00 Insulin Detemir (Levemir) 5 unit BID SC Last administered on 04/14/17 09:27; Admin Dose 5 UNIT; Start 04/08/17 at 22:00 Acetaminophen (Tylenol Tab) 650 mg Q4H PRN PO PAIN AND OR ELEVATED TEMP; Start 04/08/17 at 19:30 Morphine Sulfate (morphine) 2 mg Q4H PRN IV PAIN LEVEL 8-10 Last administered on 04/11/17 18:25; Admin Dose 2 MG; Start 04/08/17 at 19:30 Miscellaneous Information 1 ea NOTE XX ; Start 04/08/17 at 20:00 Glucose (Glutose) 15 gm Q15M PRN PO DECREASED GLUCOSE; Start 04/08/17 at 20:00 Glucose (Glutose) 22.5 gm Q15M PRN PO DECREASED GLUCOSE; Start 04/08/17 at 20: 00 Dextrose (D50w Syringe) 25 ml Q15M PRN IV DECREASED GLUCOSE; Start 04/08/17 at 20:00 Dextrose (D50w Syringe) 50 ml Q15M PRN IV DECREASED GLUCOSE; Start 04/08/17 at 20:00 Glucagon (Glucagen) 1 mg Q15M PRN IM DECREASED GLUCOSE; Start 04/08/17 at 20:00 Glucose 15 gm 15 gm Q15M PRN BUCCAL DECREASED GLUCOSE; Start 04/08/17 at 20:00 Norepinephrine/ Dextrose (Levophed/D5W) 500 ml @ 1.87 mls/hr TITRATE IV Last administered on 04/13/17 16:55; Admin Dose 11.25 MLS/HR; Start 04/09/17 at 09: 00 Collagenase (Santyl) 1 applic DAILY TOP Last administered on 04/14/17 09:34; Admin Dose 1 APPLIC; Start 04/09/17 at 14:00 Collagenase (Santyl) 1 applic DAILY PRN TOP WHEN SOILED; Start 04/09/17 at 13: 00 IV Flush (NS 10 ml) 10 ml PRN PRN IV FLUSH LINE; Start 04/10/17 at 16:30 Insulin Aspart (Novolog Insulin Pen) NOVOLOG *MODERATE* ALGORITHM Q4 SC Last administered on 04/14/17 17:25; Admin Dose 2 UNIT; Start 04/11/17 at 09:00 Gentamicin Sulfate GENTAMICIN PER PHARMACY NOTE XX ; Start 04/11/17 at 10:30 Meropenem (Merrem 500 Mg/ 100 ml (Pmx)) 100 ml @ 200 mls/hr DAILY IVPB Last administered on 04/14/17 09:21; Admin Dose 200 MLS/HR; Start 04/12/17 at 09:00 Metoclopramide HCl (Reglan Liq) 5 mg Q8 PO Last administered on 04/14/17 16:32 ; Admin Dose 5 MG; Start 04/12/17 at 08:30 Povidone Iodine (Povidone-Iodine) 1 applic DAILY TOP Last administered on 09:33; Admin Dose 1 APPLIC; Start 04/12/17 at 11:30 PATY BOND MD Apr 14, 2017 18:56
[2017-04-14] MEDS: ATORVASTATIN 20 MG TAB GTB SCH (21:32)
[2017-04-14] MEDS: traZODone 50 MG TAB PO SCH (21:32)
[2017-04-15] VITALS (99 sets, daily range): BP systolic 72–167; BP diastolic 43–108; PULSE 85–106; RESP 10–23
[2017-04-15] MEDS: INSULIN ASPART [NOVOLOG] 3 ML PEN SC SCH ×6 (01:30→21:56)
[2017-04-15 05:58] LABS: ABNORMAL IP MESSAGE 1; BASOPHILS % 0.1 % (0.0-2.0); HEMATOCRIT 23.2 % (37.0-47.0); HEMOGLOBIN 7.2 g/dl (12.0-16.0); LYMPHOCYTES # 0.7 10^3/ul (0.8-2.9); MEAN CORPUSCULAR HEMOGLOBIN 28.7 pg (29.0-33.0); MEAN CORPUSCULAR VOLUME 92.4 fl (82.0-101.0); MEAN PLATELET VOLUME 11.8 fl (7.4-10.4); MONOCYTE # 0.5 10^3/ul (0.3-0.9); MONOCYTES % 4.6 % (0.0-11.0); NEUTROPHIL # 8.4 10^3/ul (1.6-7.5); NEUTROPHILS % 81.3 % (39.0-77.0); PLATELET COUNT 72 10^3/UL (140-415); RED BLOOD COUNT 2.51 10^6/ul (4.20-5.40); RED CELL DISTRIBUTION WIDTH 22.4 % (11.5-14.5); WHITE BLOOD COUNT 10.4 10^3/ul (4.8-10.8)
[2017-04-15 06:18] LABS: ADD SCAN DIFF NO
[2017-04-15] MEDS: LEVOTHYROXINE 125 MCG TAB GTB SCH (06:26)
[2017-04-15] MEDS: METOCLOPRAMIDE (1 MG/ML) 10 ML CUP PO SCH ×3 (06:26→21:53)
[2017-04-15] MEDS: LANSOPRAZOLE 30 MG CAP GTB SCH (06:26)
[2017-04-15 06:54] LABS: ALBUMIN/GLOBULIN RATIO 0.96; BILIRUBIN,INDIRECT 0.1 mg/dl (0-1.1); BILIRUBIN,TOTAL 0.1 mg/dl (0.2-1.3); CALCIUM 7.7 mg/dl (8.4-10.2); CREATININE 2.17 mg/dl (0.44-1.00); TOTAL PROTEIN 6.1 g/dl (6.1-8.1)
[2017-04-15 06:59] LABS: CALCIUM 7.7 mg/dl (8.4-10.2); CREATININE 2.1 mg/dl (0.44-1.00); MAGNESIUM 2.1 mg/dl (1.7-2.5); PHOSPHORUS 2.6 mg/dl (2.5-4.9)
--- NOTE | 2017-04-15 08:15 | PN ---
Date/Time of Note Date/Time of Note DATE: 04/15/17 TIME: 08:13 Assessment/Plan Lines/Catheters IV Catheter Type (from [facility]): Perma Cath Urinary Cath still in place: Yes Assessment/Plan Chief Complaint/Hosp Course 1. End-stage renal disease. The patient is receiving daily dialysis for solute clearance and volume removal. Plan for ultrafiltration today for 2 hours. 2. Anemia of chronic disease. Continue to monitor hemoglobin and hematocrit levels. Will transfuse 2 units of PRBC 3. Mineral bone disorder. Monitor calcium phosphorus levels 4. Hyponatremia secondary to end-stage renal disease, improved 5. Hypokalemia, improved 6. Septic shock, etiology is multifactorial secondary to urinary tract infection and pneumonia. Continue current broad spectrum antibiotics, continue pressor support. 7. Ventilator dependent respiratory failure. Vent settings have been reviewed. ABG have been reviewed. Continue to monitor. 8. Dysphagia status post percutaneous endoscopic gastrostomy. Continue tube feeding. 9. History of coronary artery disease. 10. Diabetes. Continue Accu-Cheks and sliding scale. 11. Hypothyroidism. Continue Synthroid. 12. History of anal cancer. 13. Acute on chronic encephalopathy, etiology is toxic metabolic. Continue to monitor. 14. Volume overload secondary to congestive heart failure, end-stage renal disease. Continue ultrafiltration with dialysis. Problems: Subjective 24 Hr Interval Summary Free Text/Dictation Patient remains critical. Being weaned off pressors slowly. Patient receiving daily dialysis. Exam/Review of Systems Vital Signs Vitals Vital Signs Date Time Temp Pulse Resp B/P Pulse Ox O2 Delivery O2 Flow Rate FiO2 04/15/17 08:00 96 14 121/56 100 04/15/17 07:30 98.5 04/15/17 05:31 35 04/15/17 04:15 Mechanical Ventilator Intake and Output 04/14/17 04/14/17 04/15/17 15:00 23:00 07:00 Intake Total 1240.00 ml 598.12 ml 434.96 ml Output Total 7500 ml 20 ml Balance -6260.00 ml 598.12 ml 414.96 ml Exam HEENT: Head is normocephalic. NECK: Supple. HEART: Regular rate. LUNGS: Show diminished breath sounds at base. ABDOMEN: Soft, nontender to palpation. No rebound or guarding. EXTREMITIES: Negative for clubbing, cyanosis. Positive edema. DERMATOLOGIC: No rashes. MUSCULOSKELETAL: No joint effusions. NEUROLOGIC: No change in exam Results Result Diagram: 04/15/17 0445 04/15/17 0445 Results 24 hrs Laboratory Tests Test 04/14/17 09:25 04/14/17 12:31 04/14/17 17:22 04/14/17 21:35 Bedside Glucose 213 196 155 131 Test 04/15/17 01:28 04/15/17 04:45 04/15/17 05:00 Bedside Glucose 154 98 White Blood Count 10.4 Red Blood Count 2.51 L Hemoglobin 7.2 L Hematocrit 23.2 L Mean Corpuscular Volume 92.4 Mean Corpuscular Hemoglobin 28.7 L Mean Corpuscular Hemoglobin Concent 31.0 L Red Cell Distribution Width 22.4 H Platelet Count 72 L Mean Platelet Volume 11.8 H Neutrophils % 81.3 H Lymphocytes % 7.0 L Monocytes % 4.6 Eosinophils % 0.0 Basophils % 0.1 Nucleated Red Blood Cells % 0.0 Neutrophils # 8.4 H Lymphocytes # 0.7 L Monocytes # 0.5 Eosinophils # 0.0 Basophils # 0.0 Nucleated Red Blood Cells # 0.0 Sodium Level 137 Potassium Level 4.0 Chloride Level 102 Carbon Dioxide Level 26 Anion Gap 13 Blood Urea Nitrogen 48 H Creatinine 2.17 H Glucose Level 92 Calcium Level 7.7 L Phosphorus Level 2.6 Magnesium Level 2.1 Total Bilirubin 0.1 L Direct Bilirubin 0.00 Indirect Bilirubin 0.1 Aspartate Amino Transf (AST/SGOT) 44 Alanine Aminotransferase (ALT/SGPT) 33 Alkaline Phosphatase 233 H Total Protein 6.1 Albumin 3.0 L Globulin 3.10 Albumin/Globulin Ratio 0.96 Medications Medications Current Medications Atorvastatin Calcium (Lipitor) 20 mg QHS GTB Last administered on 04/14/17 21: 32; Admin Dose 20 MG; Start 04/08/17 at 21:00 Acetaminophen/ Hydrocodone Bitart ([place] (5/325)) 1 tab Q6H PRN GTB SEVERE PAIN LEVEL 7-10 Last administered on 04/13/17 19:59; Admin Dose 1 TAB; Start at 19:30 Albuterol/ Ipratropium (Duoneb) 3 ml Q2H PRN NEB SHORTNESS OF BREATH; Start at 19:30 Lansoprazole (Prevacid) 30 mg DAILY@06 GTB Last administered on 04/15/17 06:26 ; Admin Dose 30 MG; Start 04/09/17 at 06:00 Levothyroxine Sodium (Synthroid) 125 mcg DAILY@06 GTB Last administered on 04/15 06:26; Admin Dose 125 MCG; Start 04/09/17 at 06:00 Lisinopril (Zestril) 2.5 mg BID GTB ; Start 04/08/17 at 21:00; Status Future Hold Metoprolol Tartrate (Lopressor) 25 mg BID GTB Last administered on 04/08/17 21 :30; Admin Dose 25 MG; Start 04/08/17 at 21:00; Status Future Hold Multivit/Ca Carb/ B Cmplx/FA/Prenat (Shayla-Anuradha) 1 tab DAILY GTB Last administered on 04/14/17 09:21; Admin Dose 1 TAB; Start 04/09/17 at 09:00 Quetiapine Fumarate (Seroquel) 25 mg BID GTB Last administered on 04/14/17 21: 32; Admin Dose 25 MG; Start 04/08/17 at 21:00 Trazodone HCl (Desyrel) 25 mg QHS PO Last administered on 04/14/17 21:32; Admin Dose 25 MG; Start 04/08/17 at 21:00 Insulin Detemir (Levemir) 5 unit BID SC Last administered on 04/14/17 21:37; Admin Dose 5 UNIT; Start 04/08/17 at 22:00 Acetaminophen (Tylenol Tab) 650 mg Q4H PRN PO PAIN AND OR ELEVATED TEMP; Start 04/08/17 at 19:30 Morphine Sulfate (morphine) 2 mg Q4H PRN IV PAIN LEVEL 8-10 Last administered on 04/11/17 18:25; Admin Dose 2 MG; Start 04/08/17 at 19:30 Miscellaneous Information 1 ea NOTE XX ; Start 04/08/17 at 20:00 Glucose (Glutose) 15 gm Q15M PRN PO DECREASED GLUCOSE; Start 04/08/17 at 20:00 Glucose (Glutose) 22.5 gm Q15M PRN PO DECREASED GLUCOSE; Start 04/08/17 at 20: 00 Dextrose (D50w Syringe) 25 ml Q15M PRN IV DECREASED GLUCOSE; Start 04/08/17 at 20:00 Dextrose (D50w Syringe) 50 ml Q15M PRN IV DECREASED GLUCOSE; Start 04/08/17 at 20:00 Glucagon (Glucagen) 1 mg Q15M PRN IM DECREASED GLUCOSE; Start 04/08/17 at 20:00 Glucose 15 gm 15 gm Q15M PRN BUCCAL DECREASED GLUCOSE; Start 04/08/17 at 20:00 Norepinephrine/ Dextrose (Levophed/D5W) 500 ml @ 1.87 mls/hr TITRATE IV Last administered on 04/13/17 16:55; Admin Dose 11.25 MLS/HR; Start 04/09/17 at 09: 00 Collagenase (Santyl) 1 applic DAILY TOP Last administered on 04/14/17 09:34; Admin Dose 1 APPLIC; Start 04/09/17 at 14:00 Collagenase (Santyl) 1 applic DAILY PRN TOP WHEN SOILED; Start 04/09/17 at 13: 00 IV Flush (NS 10 ml) 10 ml PRN PRN IV FLUSH LINE; Start 04/10/17 at 16:30 Insulin Aspart (Novolog Insulin Pen) NOVOLOG *MODERATE* ALGORITHM Q4 SC Last administered on 04/15/17 01:30; Admin Dose 2 UNIT; Start 04/11/17 at 09:00 Gentamicin Sulfate GENTAMICIN PER PHARMACY NOTE XX ; Start 04/11/17 at 10:30 Meropenem (Merrem 500 Mg/ 100 ml (Pmx)) 100 ml @ 200 mls/hr DAILY IVPB Last administered on 04/14/17 09:21; Admin Dose 200 MLS/HR; Start 04/12/17 at 09:00 Metoclopramide HCl (Reglan Liq) 5 mg Q8 PO Last administered on 04/15/17 06:26 ; Admin Dose 5 MG; Start 04/12/17 at 08:30 Povidone Iodine (Povidone-Iodine) 1 applic DAILY TOP Last administered on 09:33; Admin Dose 1 APPLIC; Start 04/12/17 at 11:30 ANJELICA SANCHEZ DO Apr 15, 2017 08:14
--- NOTE | 2017-04-15 08:32 | CONS ---
Date/Time of Note Date/Time of Note DATE: 04/15/17 TIME: 08:29 Assessment/Plan Assessment/Plan Additional Assessment/Plan Data setting; AC of 14, tidal volume 500, PEEP of 5, 35% FiO2. Assessment recommendations; 1. P patient admitted with bilateral pneumonia and pulmonary edema with marked radiological improvement. 2. Chronic renal failure, on hemodialysis. 3. Thrombocytopenia and anemia. 4. History of prior CABG. 5. History of hypothyroidism. Continue current treatment. Obtain a follow-up chest x-ray. Consultation Date/Type/Reason Admit Date/Time Apr 08, 2017 at 16:19 Initial Consult Date 04/09/17 Type of Consultation: Pulmonary/critical care Referring Provider: IVAN MALLOY MD 24 HR Interval Summary Free Text/Dictation Patient condition remains stable. Remains awake alert. Denies any shortness of breath. Chest pain. General exam; elderly woman, on ventilator via tracheostomy currently in no distress. Exam/Review of Systems Vital Signs Vitals Vital Signs Date Time Temp Pulse Resp B/P Pulse Ox O2 Delivery O2 Flow Rate FiO2 04/15/17 08:00 96 14 121/56 100 04/15/17 07:30 98.5 04/15/17 05:31 35 04/15/17 04:15 Mechanical Ventilator Intake and Output 04/14/17 04/14/17 04/15/17 15:00 23:00 07:00 Intake Total 1240.00 ml 598.12 ml 434.96 ml Output Total 7500 ml 20 ml Balance -6260.00 ml 598.12 ml 414.96 ml Exam HEENT exam; supple neck, no JVD. No lymphadenopathy. Midline trachea. No thyromegaly. Tracheostomy in place. Patient is edentulous. Pupils are small bilaterally. No neck masses. She has bilateral intraocular lens implants. Chest exam; diminished but clear vessel. S1-S2 audible, no murmurs. Regular rhythm. Abdomen exam; soft, nondistended. No organomegaly. G-tube in place. Bowel sounds audible. Extremity exam; no peripheral edema. Patient does have ecchymosis involving all 4 extremities. 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 Results Result Diagram: 04/15/17 0445 04/15/17 0445 Results 24 hrs Laboratory Tests Test 04/14/17 09:25 04/14/17 12:31 04/14/17 17:22 04/14/17 21:35 Bedside Glucose 213 196 155 131 Test 04/15/17 01:28 04/15/17 04:45 04/15/17 05:00 Bedside Glucose 154 98 White Blood Count 10.4 Red Blood Count 2.51 L Hemoglobin 7.2 L Hematocrit 23.2 L Mean Corpuscular Volume 92.4 Mean Corpuscular Hemoglobin 28.7 L Mean Corpuscular Hemoglobin Concent 31.0 L Red Cell Distribution Width 22.4 H Platelet Count 72 L Mean Platelet Volume 11.8 H Neutrophils % 81.3 H Lymphocytes % 7.0 L Monocytes % 4.6 Eosinophils % 0.0 Basophils % 0.1 Nucleated Red Blood Cells % 0.0 Neutrophils # 8.4 H Lymphocytes # 0.7 L Monocytes # 0.5 Eosinophils # 0.0 Basophils # 0.0 Nucleated Red Blood Cells # 0.0 Sodium Level 137 Potassium Level 4.0 Chloride Level 102 Carbon Dioxide Level 26 Anion Gap 13 Blood Urea Nitrogen 48 H Creatinine 2.17 H Glucose Level 92 Calcium Level 7.7 L Phosphorus Level 2.6 Magnesium Level 2.1 Total Bilirubin 0.1 L Direct Bilirubin 0.00 Indirect Bilirubin 0.1 Aspartate Amino Transf (AST/SGOT) 44 Alanine Aminotransferase (ALT/SGPT) 33 Alkaline Phosphatase 233 H Total Protein 6.1 Albumin 3.0 L Globulin 3.10 Albumin/Globulin Ratio 0.96 Medications Medications Current Medications Atorvastatin Calcium (Lipitor) 20 mg QHS GTB Last administered on 04/14/17 21: 32; Admin Dose 20 MG; Start 04/08/17 at 21:00 Acetaminophen/ Hydrocodone Bitart ([place] (5/325)) 1 tab Q6H PRN GTB SEVERE PAIN LEVEL 7-10 Last administered on 04/13/17 19:59; Admin Dose 1 TAB; Start at 19:30 Albuterol/ Ipratropium (Duoneb) 3 ml Q2H PRN NEB SHORTNESS OF BREATH; Start at 19:30 Lansoprazole (Prevacid) 30 mg DAILY@06 GTB Last administered on 04/15/17 06:26 ; Admin Dose 30 MG; Start 04/09/17 at 06:00 Levothyroxine Sodium (Synthroid) 125 mcg DAILY@06 GTB Last administered on 04/15 06:26; Admin Dose 125 MCG; Start 04/09/17 at 06:00 Lisinopril (Zestril) 2.5 mg BID GTB ; Start 04/08/17 at 21:00; Status Future Hold Metoprolol Tartrate (Lopressor) 25 mg BID GTB Last administered on 04/08/17 21 :30; Admin Dose 25 MG; Start 04/08/17 at 21:00; Status Future Hold Multivit/Ca Carb/ B Cmplx/FA/Prenat (Shayla-Anuradha) 1 tab DAILY GTB Last administered on 04/14/17 09:21; Admin Dose 1 TAB; Start 04/09/17 at 09:00 Quetiapine Fumarate (Seroquel) 25 mg BID GTB Last administered on 04/14/17 21: 32; Admin Dose 25 MG; Start 04/08/17 at 21:00 Trazodone HCl (Desyrel) 25 mg QHS PO Last administered on 04/14/17 21:32; Admin Dose 25 MG; Start 04/08/17 at 21:00 Insulin Detemir (Levemir) 5 unit BID SC Last administered on 04/14/17 21:37; Admin Dose 5 UNIT; Start 04/08/17 at 22:00 Acetaminophen (Tylenol Tab) 650 mg Q4H PRN PO PAIN AND OR ELEVATED TEMP; Start 04/08/17 at 19:30 Morphine Sulfate (morphine) 2 mg Q4H PRN IV PAIN LEVEL 8-10 Last administered on 04/11/17 18:25; Admin Dose 2 MG; Start 04/08/17 at 19:30 Miscellaneous Information 1 ea NOTE XX ; Start 04/08/17 at 20:00 Glucose (Glutose) 15 gm Q15M PRN PO DECREASED GLUCOSE; Start 04/08/17 at 20:00 Glucose (Glutose) 22.5 gm Q15M PRN PO DECREASED GLUCOSE; Start 04/08/17 at 20: 00 Dextrose (D50w Syringe) 25 ml Q15M PRN IV DECREASED GLUCOSE; Start 04/08/17 at 20:00 Dextrose (D50w Syringe) 50 ml Q15M PRN IV DECREASED GLUCOSE; Start 04/08/17 at 20:00 Glucagon (Glucagen) 1 mg Q15M PRN IM DECREASED GLUCOSE; Start 04/08/17 at 20:00 Glucose 15 gm 15 gm Q15M PRN BUCCAL DECREASED GLUCOSE; Start 04/08/17 at 20:00 Norepinephrine/ Dextrose (Levophed/D5W) 500 ml @ 1.87 mls/hr TITRATE IV Last administered on 04/13/17 16:55; Admin Dose 11.25 MLS/HR; Start 04/09/17 at 09: 00 Collagenase (Santyl) 1 applic DAILY TOP Last administered on 04/14/17 09:34; Admin Dose 1 APPLIC; Start 04/09/17 at 14:00 Collagenase (Santyl) 1 applic DAILY PRN TOP WHEN SOILED; Start 04/09/17 at 13: 00 IV Flush (NS 10 ml) 10 ml PRN PRN IV FLUSH LINE; Start 04/10/17 at 16:30 Insulin Aspart (Novolog Insulin Pen) NOVOLOG *MODERATE* ALGORITHM Q4 SC Last administered on 04/15/17 01:30; Admin Dose 2 UNIT; Start 04/11/17 at 09:00 Gentamicin Sulfate GENTAMICIN PER PHARMACY NOTE XX ; Start 04/11/17 at 10:30 Meropenem (Merrem 500 Mg/ 100 ml (Pmx)) 100 ml @ 200 mls/hr DAILY IVPB Last administered on 04/14/17 09:21; Admin Dose 200 MLS/HR; Start 04/12/17 at 09:00 Metoclopramide HCl (Reglan Liq) 5 mg Q8 PO Last administered on 04/15/17 06:26 ; Admin Dose 5 MG; Start 04/12/17 at 08:30 Povidone Iodine (Povidone-Iodine) 1 applic DAILY TOP Last administered on 09:33; Admin Dose 1 APPLIC; Start 04/12/17 at 11:30 BRIE HUDSON Apr 15, 2017 08:32
[2017-04-15] MEDS: MULTIVIT/CA CARB/B CMPLX/FA TAB GTB SCH (08:54)
[2017-04-15] MEDS: MEROPENEM 500 MG/100 ML (PMX) 100 ML IVPB SCH ×2 (08:55→22:03)
[2017-04-15] MEDS: QUETIAPINE 25 MG TAB GTB SCH ×2 (08:55→21:53)
[2017-04-15] MEDS: INSULIN DETEMIR [LEVEMIR] 3ML CART SC SCH ×2 (09:03→21:57)
[2017-04-15] MEDS: POVIDONE IODINE 10% 28.4 GM OINT TOP SCH (09:07)
[2017-04-15] MEDS: BALSAM PERU/CASTOR OIL 60 GM TUBE TOP SCH ×2 (09:07→21:57)
[2017-04-15] MEDS: COLLAGENASE 30 GM TUBE TOP SCH (09:07)
--- NOTE | 2017-04-15 12:12 | PN ---
Date/Time of Note Date/Time of Note DATE: 04/15/17 TIME: 12:09 Assessment/Plan VTE Prophylaxis VTE Prophylaxis Intervention: SCD's Lines/Catheters IV C[facility]ter Type (from [facility] Perma Cath Urinary Cath still in place: Yes Reason Cath still needed: urinary retention Assessment/Plan Chief Complaint/Hosp Course Patient is awake alert, continues on ventilatory support, undergoing hemodialysis. Hemoglobin is 7.2 we will transfuse 2 units of packed red blood blood cells. Assessment/Plan 1. Septic shock with Klebsiella bacteremia. Continue antibiotics per ID. Dr. Thurston group is following in infection disease consultation. Continue pressors for blood pressure support. 2. Acute respiratory failure. Continue ventilatory support. 3. Diabetes mellitus. Continue Levemir and NovoLog. 4. Systolic heart failure. Continue hemodialysis for fluid removal. 5. End-stage renal disease. Continue hemodialysis. 6. Anoxic encephalopathy. No acute issues. 7. Anemia of chronic disease. Continue Epogen. 8. Hypothyroidism. Continue Synthroid. 9. Dyslipidemia. Continue Lipitor. 10. Possible history of psychosis. Continue Seroquel and trazodone. Further recommendations based on clinical course. Plan of care discussed with Dr. Guerrero. Problems: Exam/Review of Systems Vital Signs Vitals Vital Signs Date Time Temp Pulse Resp B/P Pulse Ox O2 Delivery O2 Flow Rate FiO2 04/15/17 09:45 91 14 103/47 100 04/15/17 07:30 98.5 04/15/17 05:31 35 04/15/17 04:15 Mechanical Ventilator Intake and Output 04/14/17 04/14/17 04/15/17 15:00 23:00 07:00 Intake Total 1240.00 ml 598.12 ml 434.96 ml Output Total 7500 ml 20 ml Balance -6260.00 ml 598.12 ml 414.96 ml Exam Constitutional: alert, frail Head: normocephalic Neck: other (Tracheostomy), supple Respiratory: diminished breath sounds Cardiovascular: nl pulses Gastrointestinal: non-tender, other (GT), soft Extremities: normal pulses Neurological: nl mental status Results Result Diagram: 04/15/17 0445 04/15/17 0445 Results 24 hrs Laboratory Tests Test 04/14/17 12:31 04/14/17 17:22 04/14/17 21:35 04/15/17 01:28 Bedside Glucose 196 155 131 154 Test 04/15/17 04:45 04/15/17 05:00 04/15/17 09:00 White Blood Count 10.4 Red Blood Count 2.51 L Hemoglobin 7.2 L Hematocrit 23.2 L Mean Corpuscular Volume 92.4 Mean Corpuscular Hemoglobin 28.7 L Mean Corpuscular Hemoglobin Concent 31.0 L Red Cell Distribution Width 22.4 H Platelet Count 72 L Mean Platelet Volume 11.8 H Neutrophils % 81.3 H Lymphocytes % 7.0 L Monocytes % 4.6 Eosinophils % 0.0 Basophils % 0.1 Nucleated Red Blood Cells % 0.0 Neutrophils # 8.4 H Lymphocytes # 0.7 L Monocytes # 0.5 Eosinophils # 0.0 Basophils # 0.0 Nucleated Red Blood Cells # 0.0 Sodium Level 137 Potassium Level 4.0 Chloride Level 102 Carbon Dioxide Level 26 Anion Gap 13 Blood Urea Nitrogen 48 H Creatinine 2.17 H Glucose Level 92 Calcium Level 7.7 L Phosphorus Level 2.6 Magnesium Level 2.1 Total Bilirubin 0.1 L Direct Bilirubin 0.00 Indirect Bilirubin 0.1 Aspartate Amino Transf (AST/SGOT) 44 Alanine Aminotransferase (ALT/SGPT) 33 Alkaline Phosphatase 233 H Total Protein 6.1 Albumin 3.0 L Globulin 3.10 Albumin/Globulin Ratio 0.96 Bedside Glucose 98 87 Medications Medications Current Medications Atorvastatin Calcium (Lipitor) 20 mg QHS GTB Last administered on 04/14/17 21: 32; Admin Dose 20 MG; Start 04/08/17 at 21:00 Acetaminophen/ Hydrocodone Bitart ([place] (5/325)) 1 tab Q6H PRN GTB SEVERE PAIN LEVEL 7-10 Last administered on 04/13/17 19:59; Admin Dose 1 TAB; Start at 19:30 Albuterol/ Ipratropium (Duoneb) 3 ml Q2H PRN NEB SHORTNESS OF BREATH; Start at 19:30 Lansoprazole (Prevacid) 30 mg DAILY@06 GTB Last administered on 04/15/17 06:26 ; Admin Dose 30 MG; Start 04/09/17 at 06:00 Levothyroxine Sodium (Synthroid) 125 mcg DAILY@06 GTB Last administered on 04/15 06:26; Admin Dose 125 MCG; Start 04/09/17 at 06:00 Lisinopril (Zestril) 2.5 mg BID GTB ; Start 04/08/17 at 21:00; Status Future Hold Metoprolol Tartrate (Lopressor) 25 mg BID GTB Last administered on 04/08/17 21 :30; Admin Dose 25 MG; Start 04/08/17 at 21:00; Status Future Hold Multivit/Ca Carb/ B Cmplx/FA/Prenat (Shayla-Anuradha) 1 tab DAILY GTB Last administered on 04/15/17 08:54; Admin Dose 1 TAB; Start 04/09/17 at 09:00 Quetiapine Fumarate (Seroquel) 25 mg BID GTB Last administered on 04/15/17 08: 55; Admin Dose 25 MG; Start 04/08/17 at 21:00 Trazodone HCl (Desyrel) 25 mg QHS PO Last administered on 04/14/17 21:32; Admin Dose 25 MG; Start 04/08/17 at 21:00 Insulin Detemir (Levemir) 5 unit BID SC Last administered on 04/15/17 09:03; Admin Dose 5 UNIT; Start 04/08/17 at 22:00 Acetaminophen (Tylenol Tab) 650 mg Q4H PRN PO PAIN AND OR ELEVATED TEMP; Start 04/08/17 at 19:30 Morphine Sulfate (morphine) 2 mg Q4H PRN IV PAIN LEVEL 8-10 Last administered on 04/11/17 18:25; Admin Dose 2 MG; Start 04/08/17 at 19:30 Miscellaneous Information 1 ea NOTE XX ; Start 04/08/17 at 20:00 Glucose (Glutose) 15 gm Q15M PRN PO DECREASED GLUCOSE; Start 04/08/17 at 20:00 Glucose (Glutose) 22.5 gm Q15M PRN PO DECREASED GLUCOSE; Start 04/08/17 at 20: 00 Dextrose (D50w Syringe) 25 ml Q15M PRN IV DECREASED GLUCOSE; Start 04/08/17 at 20:00 Dextrose (D50w Syringe) 50 ml Q15M PRN IV DECREASED GLUCOSE; Start 04/08/17 at 20:00 Glucagon (Glucagen) 1 mg Q15M PRN IM DECREASED GLUCOSE; Start 04/08/17 at 20:00 Glucose 15 gm 15 gm Q15M PRN BUCCAL DECREASED GLUCOSE; Start 04/08/17 at 20:00 Norepinephrine/ Dextrose (Levophed/D5W) 500 ml @ 1.87 mls/hr TITRATE IV Last administered on 04/15/17 11:25; Admin Dose 9.37 MLS/HR; Start 04/09/17 at 09:00 Collagenase (Santyl) 1 applic DAILY TOP Last administered on 04/15/17 09:07; Admin Dose 1 APPLIC; Start 04/09/17 at 14:00 Collagenase (Santyl) 1 applic DAILY PRN TOP WHEN SOILED; Start 04/09/17 at 13: 00 IV Flush (NS 10 ml) 10 ml PRN PRN IV FLUSH LINE; Start 04/10/17 at 16:30 Insulin Aspart (Novolog Insulin Pen) NOVOLOG *MODERATE* ALGORITHM Q4 SC Last administered on 04/15/17 01:30; Admin Dose 2 UNIT; Start 04/11/17 at 09:00 Gentamicin Sulfate (Gentamicin Iv Per Pharmacy) GENTAMICIN PER PHARMACY NOTE XX ; Start 04/11/17 at 10:30 Metoclopramide HCl (Reglan Liq) 5 mg Q8 PO Last administered on 04/15/17 06:26 ; Admin Dose 5 MG; Start 04/12/17 at 08:30 Povidone Iodine 1 applic 1 applic DAILY TOP Last administered on 04/15/17 09: 07; Admin Dose 1 APPLIC; Start 04/12/17 at 11:30 Meropenem (Merrem 500 Mg/ 100 ml (Pmx)) 100 ml @ 200 mls/hr 22 IVPB ; Start at 22:00 HIEU DALY Apr 15, 2017 12:12
[2017-04-15] MEDS ORDERED: SOD CHLORIDE 0.9% 250 ML IV* ONE (12:13)
[2017-04-15] MEDS: morphine 2 MG INJ IV PRN (13:57)
[2017-04-15] MEDS: GENTAMICIN 80 MG/NS (PMX) 50 ML IVPB SCH (14:11)
--- NOTE | 2017-04-15 17:00 | PN ---
Date/Time of Note Date/Time of Note DATE: 04/14/17 TIME: 11:00 Assessment/Plan VTE Prophylaxis VTE Prophylaxis Intervention: heparin Lines/Catheters IV [facility] PERMACATH Urinary Cath still in place: Yes Reason Cath still needed: urinary retention Assessment/Plan Assessment/Plan 1. Septic shock with Klebsiella bacteremia. Continue antibiotics per ID. Dr. Thurston group is following in infection disease consultation. Continue pressors for blood pressure support. 2. Acute respiratory failure. continue vent support. 3. Diabetes mellitus. Continue Levemir and NovoLog. 4. Systolic heart failure. Continue hemodialysis for fluid removal. 5. End-stage renal disease. Continue hemodialysis. 6. Anoxic encephalopathy. No acute issues. 7. Anemia of chronic disease. Continue Epogen. 8. Hypothyroidism. Continue Synthroid. 9. Dyslipidemia. Continue Lipitor. 10. Possible history of psychosis. Continue Seroquel and trazodone. Further recommendations based on clinical course. Plan of care discussed with Dr. Gurerero/staff. Total critical care time spent was 30 mins. Subjective 24 Hr Interval Summary Free Text/Dictation remains on Levo at 6 mcgs/hr. c/o abdominal distention- gi on case. Drop in H/H - will order stool for OB. afebrile. BS elevated. dw staff Constitutional: requiring IVF, requiring O2 Exam/Review of Systems Vital Signs Vitals Vital Signs Date Time Temp Pulse Resp B/P Pulse Ox O2 Delivery O2 Flow Rate FiO2 04/14/17 05:10 99 14 100 35 04/14/17 04:30 104/49 Mechanical Ventilator 04/14/17 04:00 98.5 Intake and Output 04/13/17 04/13/17 04/14/17 15:00 23:00 07:00 Intake Total 992.50 ml 435.7955 ml 433.75 ml Output Total 3510 ml 20 ml Balance -2517.50 ml 435.7955 ml 413.75 ml Exam Constitutional: alert, well developed Respiratory: clear to auscultation, normal air movement Cardiovascular: nl pulses, regular rate and rhythm Gastrointestinal: distended, soft Extremities: normal pulses Neurological: other (alert, responsive to name, follows simple commands) Skin: other Results Result Diagram: 04/14/17 0400 04/14/17 0400 Results 24 hrs Laboratory Tests Test 04/13/17 11:55 04/13/17 16:40 04/13/17 21:43 04/14/17 02:53 Bedside Glucose 152 193 173 179 Test 04/14/17 04:00 04/14/17 05:03 04/14/17 09:25 White Blood Count 12.0 #H Red Blood Count 2.57 L Hemoglobin 7.6 L Hematocrit 23.9 L Mean Corpuscular Volume 93.0 Mean Corpuscular Hemoglobin 29.6 Mean Corpuscular Hemoglobin Concent 31.8 L Red Cell Distribution Width 22.5 H Platelet Count 71 L Mean Platelet Volume 11.4 H Neutrophils % 82.2 H Lymphocytes % 6.1 L Monocytes % 4.8 Eosinophils % 0.0 Basophils % 0.2 Nucleated Red Blood Cells % 0.0 Neutrophils # 9.9 H Lymphocytes # 0.7 L Monocytes # 0.6 Eosinophils # 0.0 Basophils # 0.0 Nucleated Red Blood Cells # 0.0 Sodium Level 141 Potassium Level 4.0 Chloride Level 104 Carbon Dioxide Level 26 Anion Gap 15 Blood Urea Nitrogen 36 H Creatinine 1.68 H Glucose Level 177 Calcium Level 8.0 L Phosphorus Level 2.8 Magnesium Level 2.2 Bedside Glucose 213 213 Medications Medications Current Medications Atorvastatin Calcium (Lipitor) 20 mg QHS GTB Last administered on 04/13/17 21: 41; Admin Dose 20 MG; Start 04/08/17 at 21:00 Acetaminophen/ Hydrocodone Bitart ([place] (5/325)) 1 tab Q6H PRN GTB SEVERE PAIN LEVEL 7-10 Last administered on 04/13/17 19:59; Admin Dose 1 TAB; Start at 19:30 Albuterol/ Ipratropium (Duoneb) 3 ml Q2H PRN NEB SHORTNESS OF BREATH; Start at 19:30 Lansoprazole (Prevacid) 30 mg DAILY@06 GTB Last administered on 04/14/17 05:04 ; Admin Dose 30 MG; Start 04/09/17 at 06:00 Levothyroxine Sodium (Synthroid) 125 mcg DAILY@06 GTB Last administered on 04/14 05:04; Admin Dose 125 MCG; Start 04/09/17 at 06:00 Lisinopril (Zestril) 2.5 mg BID GTB ; Start 04/08/17 at 21:00; Status Future Hold Metoprolol Tartrate (Lopressor) 25 mg BID GTB Last administered on 04/08/17 21 :30; Admin Dose 25 MG; Start 04/08/17 at 21:00; Status Future Hold Multivit/Ca Carb/ B Cmplx/FA/Prenat (Shayla-Anuradha) 1 tab DAILY GTB Last administered on 04/14/17 09:21; Admin Dose 1 TAB; Start 04/09/17 at 09:00 Quetiapine Fumarate (Seroquel) 25 mg BID GTB Last administered on 04/14/17 09: 21; Admin Dose 25 MG; Start 04/08/17 at 21:00 Trazodone HCl (Desyrel) 25 mg QHS PO Last administered on 04/13/17 21:41; Admin Dose 25 MG; Start 04/08/17 at 21:00 Insulin Detemir (Levemir) 5 unit BID SC Last administered on 04/14/17 09:27; Admin Dose 5 UNIT; Start 04/08/17 at 22:00 Acetaminophen (Tylenol Tab) 650 mg Q4H PRN PO PAIN AND OR ELEVATED TEMP; Start 04/08/17 at 19:30 Morphine Sulfate (morphine) 2 mg Q4H PRN IV PAIN LEVEL 8-10 Last administered on 04/11/17 18:25; Admin Dose 2 MG; Start 04/08/17 at 19:30 Miscellaneous Information 1 ea NOTE XX ; Start 04/08/17 at 20:00 Glucose (Glutose) 15 gm Q15M PRN PO DECREASED GLUCOSE; Start 04/08/17 at 20:00 Glucose (Glutose) 22.5 gm Q15M PRN PO DECREASED GLUCOSE; Start 04/08/17 at 20: 00 Dextrose (D50w Syringe) 25 ml Q15M PRN IV DECREASED GLUCOSE; Start 04/08/17 at 20:00 Dextrose (D50w Syringe) 50 ml Q15M PRN IV DECREASED GLUCOSE; Start 04/08/17 at 20:00 Glucagon (Glucagen) 1 mg Q15M PRN IM DECREASED GLUCOSE; Start 04/08/17 at 20:00 Glucose 15 gm 15 gm Q15M PRN BUCCAL DECREASED GLUCOSE; Start 04/08/17 at 20:00 Norepinephrine/ Dextrose (Levophed/D5W) 500 ml @ 1.87 mls/hr TITRATE IV Last administered on 04/13/17 16:55; Admin Dose 11.25 MLS/HR; Start 04/09/17 at 09: 00 Collagenase (Santyl) 1 applic DAILY TOP Last administered on 04/14/17 09:34; Admin Dose 1 APPLIC; Start 04/09/17 at 14:00 Collagenase (Santyl) 1 applic DAILY PRN TOP WHEN SOILED; Start 04/09/17 at 13: 00 IV Flush (NS 10 ml) 10 ml PRN PRN IV FLUSH LINE; Start 04/10/17 at 16:30 Insulin Aspart (Novolog Insulin Pen) NOVOLOG *MODERATE* ALGORITHM Q4 SC Last administered on 04/14/17 09:31; Admin Dose 4 UNIT; Start 04/11/17 at 09:00 Gentamicin Sulfate GENTAMICIN PER PHARMACY NOTE XX ; Start 04/11/17 at 10:30 Meropenem (Merrem 500 Mg/ 100 ml (Pmx)) 100 ml @ 200 mls/hr DAILY IVPB Last administered on 04/14/17 09:21; Admin Dose 200 MLS/HR; Start 04/12/17 at 09:00 Metoclopramide HCl (Reglan Liq) 5 mg Q8 PO Last administered on 04/14/17 05:04 ; Admin Dose 5 MG; Start 04/12/17 at 08:30 Povidone Iodine (Povidone-Iodine) 1 applic DAILY TOP Last administered on 09:33; Admin Dose 1 APPLIC; Start 04/12/17 at 11:30 Epoetin Chip (Epogen (Esrd)) 10,000 units ONCE SC ; Start 04/14/17 at 08:00; Stop 04/14/17 at 14:00 VIRGINIA RODARTE Apr 14, 2017 11:11
--- NOTE | 2017-04-15 17:03 | CONS ---
Date/Time of Note Date/Time of Note DATE: 04/15/17 TIME: 17:01 Assessment/Plan Assessment/Plan Additional Assessment/Plan - septic shock due to bacteremia (Klebsiella) - bacteremia due to klebsiella, likely from PNA - complicated UTI due to enterobacter - possible HCAP due to klebsiella and pseudomonas, with moderate pleural effusion - acute toxic metabolic encephalopathy - improving - rectal bleeding at [facility] prior to admission, possibly due to radiation proctitis. So far no bleeding after arrival - normocytic anemia - h/o anal CA s/p radiation - diverticulosis without diverticulitis on CT - mild ascites - bloody secretion via trach, possible due to CHF - pulm edema and volume overload - ESRD on HD, via permacath on R chest wall. 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 - ventilator dependent resp failure s/p tracheostomy placement - G tube dependent status - diarrhea; C diff negative - resolved - reported allergy to penicillin and sulfa drugs - reactions unknown recommendations: - pending results: blood cx x2 from HD catheter, TTE - continue meropenem until cultures are finalized - continue gentamicin for pseudomonas, plus double coverage for klebsiella and enterobacter - recommend orthopedic/neurosurgery consult re; potential destructive change at the L4-5 disk space with apparent posterior retropulsion of portion of artificial disk (seen on CT) Consultation Date/Type/Reason Admit Date/Time Apr 08, 2017 at 16:19 Initial Consult Date 04/09/17 Type of Consultation: Pulmonary/critical care Referring Provider: IVAN MALLOY MD 24 HR Interval Summary Free Text/Dictation Remains on low dosed levophed- 5ncg/hr No nausea Nods no to pain or SOB. ROS limited due to pt being non-verbal and lethargic. Constitutional: requiring IVF, requiring O2 Exam/Review of Systems Vital Signs Vitals Vital Signs Date Time Temp Pulse Resp B/P Pulse Ox O2 Delivery O2 Flow Rate FiO2 04/15/17 16:00 95 04/15/17 13:30 14 87/49 100 04/15/17 13:12 35 04/15/17 12:00 98.4 04/15/17 04:15 Mechanical Ventilator Intake and Output 04/14/17 04/14/17 04/15/17 15:00 23:00 07:00 Intake Total 1240.00 ml 598.12 ml 434.96 ml Output Total 7500 ml 20 ml Balance -6260.00 ml 598.12 ml 414.96 ml Exam Constitutional: alert, well developed Neck: other (trach site dry/ intact.) Respiratory: clear to auscultation, normal air movement Cardiovascular: nl pulses, regular rate and rhythm Gastrointestinal: non-tender, soft Musculoskeletal: nl extremities to inspection Extremities: normal pulses Neurological: other (alert, responsive .) Results Result Diagram: 04/15/17 0445 04/15/17 0445 Results 24 hrs Laboratory Tests Test 04/14/17 17:22 04/14/17 21:35 04/15/17 01:28 04/15/17 04:45 Bedside Glucose 155 131 154 White Blood Count 10.4 Red Blood Count 2.51 L Hemoglobin 7.2 L Hematocrit 23.2 L Mean Corpuscular Volume 92.4 Mean Corpuscular Hemoglobin 28.7 L Mean Corpuscular Hemoglobin Concent 31.0 L Red Cell Distribution Width 22.4 H Platelet Count 72 L Mean Platelet Volume 11.8 H Neutrophils % 81.3 H Lymphocytes % 7.0 L Monocytes % 4.6 Eosinophils % 0.0 Basophils % 0.1 Nucleated Red Blood Cells % 0.0 Neutrophils # 8.4 H Lymphocytes # 0.7 L Monocytes # 0.5 Eosinophils # 0.0 Basophils # 0.0 Nucleated Red Blood Cells # 0.0 Sodium Level 137 Potassium Level 4.0 Chloride Level 102 Carbon Dioxide Level 26 Anion Gap 13 Blood Urea Nitrogen 48 H Creatinine 2.17 H Glucose Level 92 Calcium Level 7.7 L Phosphorus Level 2.6 Magnesium Level 2.1 Total Bilirubin 0.1 L Direct Bilirubin 0.00 Indirect Bilirubin 0.1 Aspartate Amino Transf (AST/SGOT) 44 Alanine Aminotransferase (ALT/SGPT) 33 Alkaline Phosphatase 233 H Total Protein 6.1 Albumin 3.0 L Globulin 3.10 Albumin/Globulin Ratio 0.96 Test 04/15/17 05:00 04/15/17 09:00 04/15/17 13:27 Bedside Glucose 98 87 162 Medications Medications Current Medications Atorvastatin Calcium (Lipitor) 20 mg QHS GTB Last administered on 04/14/17 21: 32; Admin Dose 20 MG; Start 04/08/17 at 21:00 Acetaminophen/ Hydrocodone Bitart ([place] (5/325)) 1 tab Q6H PRN GTB SEVERE PAIN LEVEL 7-10 Last administered on 04/13/17 19:59; Admin Dose 1 TAB; Start at 19:30 Albuterol/ Ipratropium (Duoneb) 3 ml Q2H PRN NEB SHORTNESS OF BREATH; Start at 19:30 Lansoprazole (Prevacid) 30 mg DAILY@06 GTB Last administered on 04/15/17 06:26 ; Admin Dose 30 MG; Start 04/09/17 at 06:00 Levothyroxine Sodium (Synthroid) 125 mcg DAILY@06 GTB Last administered on 04/15 06:26; Admin Dose 125 MCG; Start 04/09/17 at 06:00 Lisinopril (Zestril) 2.5 mg BID GTB ; Start 04/08/17 at 21:00; Status Future Hold Metoprolol Tartrate (Lopressor) 25 mg BID GTB Last administered on 04/08/17 21 :30; Admin Dose 25 MG; Start 04/08/17 at 21:00; Status Future Hold Multivit/Ca Carb/ B Cmplx/FA/Prenat (Shayla-Anuradha) 1 tab DAILY GTB Last administered on 04/15/17 08:54; Admin Dose 1 TAB; Start 04/09/17 at 09:00 Quetiapine Fumarate (Seroquel) 25 mg BID GTB Last administered on 04/15/17 08: 55; Admin Dose 25 MG; Start 04/08/17 at 21:00 Trazodone HCl (Desyrel) 25 mg QHS PO Last administered on 04/14/17 21:32; Admin Dose 25 MG; Start 04/08/17 at 21:00 Insulin Detemir (Levemir) 5 unit BID SC Last administered on 04/15/17 09:03; Admin Dose 5 UNIT; Start 04/08/17 at 22:00 Acetaminophen (Tylenol Tab) 650 mg Q4H PRN PO PAIN AND OR ELEVATED TEMP; Start 04/08/17 at 19:30 Morphine Sulfate (morphine) 2 mg Q4H PRN IV PAIN LEVEL 8-10 Last administered on 04/15/17 13:57; Admin Dose 2 MG; Start 04/08/17 at 19:30 Miscellaneous Information 1 ea NOTE XX ; Start 04/08/17 at 20:00 Glucose (Glutose) 15 gm Q15M PRN PO DECREASED GLUCOSE; Start 04/08/17 at 20:00 Glucose (Glutose) 22.5 gm Q15M PRN PO DECREASED GLUCOSE; Start 04/08/17 at 20: 00 Dextrose (D50w Syringe) 25 ml Q15M PRN IV DECREASED GLUCOSE; Start 04/08/17 at 20:00 Dextrose (D50w Syringe) 50 ml Q15M PRN IV DECREASED GLUCOSE; Start 04/08/17 at 20:00 Glucagon (Glucagen) 1 mg Q15M PRN IM DECREASED GLUCOSE; Start 04/08/17 at 20:00 Glucose 15 gm 15 gm Q15M PRN BUCCAL DECREASED GLUCOSE; Start 04/08/17 at 20:00 Norepinephrine/ Dextrose (Levophed/D5W) 500 ml @ 1.87 mls/hr TITRATE IV Last administered on 04/15/17 11:25; Admin Dose 9.37 MLS/HR; Start 04/09/17 at 09:00 Collagenase (Santyl) 1 applic DAILY TOP Last administered on 04/15/17 09:07; Admin Dose 1 APPLIC; Start 04/09/17 at 14:00 Collagenase (Santyl) 1 applic DAILY PRN TOP WHEN SOILED; Start 04/09/17 at 13: 00 IV Flush (NS 10 ml) 10 ml PRN PRN IV FLUSH LINE; Start 04/10/17 at 16:30 Insulin Aspart (Novolog Insulin Pen) NOVOLOG *MODERATE* ALGORITHM Q4 SC Last administered on 04/15/17 13:31; Admin Dose 2 UNIT; Start 04/11/17 at 09:00 Gentamicin Sulfate (Gentamicin Iv Per Pharmacy) GENTAMICIN PER PHARMACY NOTE XX ; Start 04/11/17 at 10:30 Metoclopramide HCl (Reglan Liq) 5 mg Q8 PO Last administered on 04/15/17 14:07 ; Admin Dose 5 MG; Start 04/12/17 at 08:30 Povidone Iodine 1 applic 1 applic DAILY TOP Last administered on 6/30/17at 09: 07; Admin Dose 1 APPLIC; Start 04/12/17 at 11:30 Meropenem (Merrem 500 Mg/ 100 ml (Pmx)) 100 ml @ 200 mls/hr 22 IVPB ; Start at 22:00 VIRGINIA RODARTE Apr 15, 2017 17:03
--- NOTE | 2017-04-15 19:03 | CONS ---
Date/Time of Note Date/Time of Note DATE: 04/15/17 TIME: 19:02 Assessment/Plan Assessment/Plan Chief Complaint/Hosp Course 66-year-old female with a history of end-stage renal disease on dialysis, status post trach on vent, status post PEG, admitted to the intensive care unit for sepsis. Patient also had a rectal bleeding. GI consult was called in for abdominal distention. Patient had both KUB and CAT scan done within the last few days CAT scan was negative for any acute pathology. Patient had some ascites and anasarca. KUB also was negative. Patient is on G-tube feeding at 10 cc/h. Her residual has been around 10 cc. No active bleeding has been noted by the staff in ICU. Problems: Additional Assessment/Plan Additional Assessment/Plan IMPRESSION: 1. Sepsis. 2. Coronary artery disease with systolic heart failure. Continue hemodialysis to remove fluids. 3. Coronary artery disease, status post coronary artery bypass graft. No active issue. 4. Diabetes. 5. Respiratory failure. Continue vent support. Will obtain a pulmonary consult from [facility]. 6. Hypothyroidism. Will continue Synthroid. 7. Anal cancer with recent rectal bleed. Status post radiation treatment. Her rectal bleeding is most probably from radiation proctitis 8. History of pulseless electrical activity with possible anoxic encephalopathy. Will continue to monitor. 9. History of GI bleed. Will continue proton pump inhibitor. 10. Dyslipidemia. 11. Anasarca, and ascites 12. Renal failure on dialysis 13. Encephalopathy, resolved patient is alert awake and oriented 14. Anemia multifactorial, stable now Plan Continue all supportive care Continue antibiotic Increase feeding through the G-tube at 40 cc/h, which patient is tolerating well More fluid to be removed during dialysis. Consultation Date/Type/Reason Admit Date/Time Apr 08, 2017 at 16:19 Initial Consult Date 04/09/17 Type of Consultation: Pulmonary/critical care Referring Provider: IVAN MALLOY MD 24 HR Interval Summary Free Text/Dictation Patient is alert awake communicate. She recognized me Constitutional: improved, no complaints Exam/Review of Systems Vital Signs Vitals Vital Signs Date Time Temp Pulse Resp B/P Pulse Ox O2 Delivery O2 Flow Rate FiO2 04/15/17 18:45 95 14 105/52 100 04/15/17 17:00 35 04/15/17 16:00 98.6 04/15/17 04:15 Mechanical Ventilator Intake and Output 04/14/17 04/14/17 04/15/17 15:00 23:00 07:00 Intake Total 1240.00 ml 598.12 ml 434.96 ml Output Total 7500 ml 20 ml Balance -6260.00 ml 598.12 ml 414.96 ml Exam Constitutional: alert, oriented, well developed Psych: nl mood/affect, no complaints Head: atraumatic, normocephalic Eyes: EOMI, PERRL, nl conjunctiva, nl lids, nl sclera ENMT: nl external ears & nose, nl lips & teeth, nl nasal mucosa & septum Neck: non-tender, supple Respiratory: clear to auscultation, normal air movement Cardiovascular: nl pulses, regular rate and rhythm Gastrointestinal: nl liver, spleen, non-tender, soft Musculoskeletal: nl extremities to inspection, nl gait and stance Extremities: normal pulses Neurological: [employer] II-XII intact, nl mental status, nl speech, nl strength Skin: nl turgor, No rash or lesions Lymph: nl lymph nodes Results Result Diagram: 04/15/17 0445 04/15/17 0445 Results 24 hrs Laboratory Tests Test 04/14/17 21:35 04/15/17 01:28 04/15/17 04:45 04/15/17 05:00 Bedside Glucose 131 154 98 White Blood Count 10.4 Red Blood Count 2.51 L Hemoglobin 7.2 L Hematocrit 23.2 L Mean Corpuscular Volume 92.4 Mean Corpuscular Hemoglobin 28.7 L Mean Corpuscular Hemoglobin Concent 31.0 L Red Cell Distribution Width 22.4 H Platelet Count 72 L Mean Platelet Volume 11.8 H Neutrophils % 81.3 H Lymphocytes % 7.0 L Monocytes % 4.6 Eosinophils % 0.0 Basophils % 0.1 Nucleated Red Blood Cells % 0.0 Neutrophils # 8.4 H Lymphocytes # 0.7 L Monocytes # 0.5 Eosinophils # 0.0 Basophils # 0.0 Nucleated Red Blood Cells # 0.0 Sodium Level 137 Potassium Level 4.0 Chloride Level 102 Carbon Dioxide Level 26 Anion Gap 13 Blood Urea Nitrogen 48 H Creatinine 2.17 H Glucose Level 92 Calcium Level 7.7 L Phosphorus Level 2.6 Magnesium Level 2.1 Total Bilirubin 0.1 L Direct Bilirubin 0.00 Indirect Bilirubin 0.1 Aspartate Amino Transf (AST/SGOT) 44 Alanine Aminotransferase (ALT/SGPT) 33 Alkaline Phosphatase 233 H Total Protein 6.1 Albumin 3.0 L Globulin 3.10 Albumin/Globulin Ratio 0.96 Test 04/15/17 09:00 04/15/17 13:27 04/15/17 17:18 Bedside Glucose 87 162 242 H Medications Medications Current Medications Atorvastatin Calcium (Lipitor) 20 mg QHS GTB Last administered on 04/14/17 21: 32; Admin Dose 20 MG; Start 04/08/17 at 21:00 Acetaminophen/ Hydrocodone Bitart ([place] (5/325)) 1 tab Q6H PRN GTB SEVERE PAIN LEVEL 7-10 Last administered on 04/13/17 19:59; Admin Dose 1 TAB; Start at 19:30 Albuterol/ Ipratropium (Duoneb) 3 ml Q2H PRN NEB SHORTNESS OF BREATH; Start at 19:30 Lansoprazole (Prevacid) 30 mg DAILY@06 GTB Last administered on 04/15/17 06:26 ; Admin Dose 30 MG; Start 04/09/17 at 06:00 Levothyroxine Sodium (Synthroid) 125 mcg DAILY@06 GTB Last administered on 04/15 06:26; Admin Dose 125 MCG; Start 04/09/17 at 06:00 Lisinopril (Zestril) 2.5 mg BID GTB ; Start 04/08/17 at 21:00; Status Future Hold Metoprolol Tartrate (Lopressor) 25 mg BID GTB Last administered on 04/08/17 21 :30; Admin Dose 25 MG; Start 04/08/17 at 21:00; Status Future Hold Multivit/Ca Carb/ B Cmplx/FA/Prenat (Shayla-Anuradha) 1 tab DAILY GTB Last administered on 04/15/17 08:54; Admin Dose 1 TAB; Start 04/09/17 at 09:00 Quetiapine Fumarate (Seroquel) 25 mg BID GTB Last administered on 04/15/17 08: 55; Admin Dose 25 MG; Start 04/08/17 at 21:00 Trazodone HCl (Desyrel) 25 mg QHS PO Last administered on 04/14/17 21:32; Admin Dose 25 MG; Start 04/08/17 at 21:00 Insulin Detemir (Levemir) 5 unit BID SC Last administered on 04/15/17 09:03; Admin Dose 5 UNIT; Start 04/08/17 at 22:00 Acetaminophen (Tylenol Tab) 650 mg Q4H PRN PO PAIN AND OR ELEVATED TEMP; Start 04/08/17 at 19:30 Morphine Sulfate (morphine) 2 mg Q4H PRN IV PAIN LEVEL 8-10 Last administered on 04/15/17 13:57; Admin Dose 2 MG; Start 04/08/17 at 19:30 Miscellaneous Information 1 ea NOTE XX ; Start 04/08/17 at 20:00 Glucose (Glutose) 15 gm Q15M PRN PO DECREASED GLUCOSE; Start 04/08/17 at 20:00 Glucose (Glutose) 22.5 gm Q15M PRN PO DECREASED GLUCOSE; Start 04/08/17 at 20: 00 Dextrose (D50w Syringe) 25 ml Q15M PRN IV DECREASED GLUCOSE; Start 04/08/17 at 20:00 Dextrose (D50w Syringe) 50 ml Q15M PRN IV DECREASED GLUCOSE; Start 04/08/17 at 20:00 Glucagon (Glucagen) 1 mg Q15M PRN IM DECREASED GLUCOSE; Start 04/08/17 at 20:00 Glucose 15 gm 15 gm Q15M PRN BUCCAL DECREASED GLUCOSE; Start 04/08/17 at 20:00 Norepinephrine/ Dextrose (Levophed/D5W) 500 ml @ 1.87 mls/hr TITRATE IV Last administered on 04/15/17 11:25; Admin Dose 9.37 MLS/HR; Start 04/09/17 at 09:00 Collagenase (Santyl) 1 applic DAILY TOP Last administered on 04/15/17 09:07; Admin Dose 1 APPLIC; Start 04/09/17 at 14:00 Collagenase (Santyl) 1 applic DAILY PRN TOP WHEN SOILED; Start 04/09/17 at 13: 00 IV Flush (NS 10 ml) 10 ml PRN PRN IV FLUSH LINE; Start 04/10/17 at 16:30 Insulin Aspart (Novolog Insulin Pen) NOVOLOG *MODERATE* ALGORITHM Q4 SC Last administered on 04/15/17 17:20; Admin Dose 6 UNIT; Start 04/11/17 at 09:00 Gentamicin Sulfate (Gentamicin Iv Per Pharmacy) GENTAMICIN PER PHARMACY NOTE XX ; Start 04/11/17 at 10:30 Metoclopramide HCl (Reglan Liq) 5 mg Q8 PO Last administered on 04/15/17 14:07 ; Admin Dose 5 MG; Start 04/12/17 at 08:30 Povidone Iodine 1 applic 1 applic DAILY TOP Last administered on 04/15/17 09: 07; Admin Dose 1 APPLIC; Start 04/12/17 at 11:30 Meropenem (Merrem 500 Mg/ 100 ml (Pmx)) 100 ml @ 200 mls/hr 22 IVPB ; Start at 22:00 KAIN HOWELL MD Apr 15, 2017 19:03
[2017-04-15] MEDS: traZODone 50 MG TAB PO SCH (21:53)
[2017-04-15] MEDS: ATORVASTATIN 20 MG TAB GTB SCH (21:53)
[2017-04-16] VITALS (111 sets, daily range): BP systolic 72–136; BP diastolic 39–83; PULSE 69–102; RESP 0–25
[2017-04-16] MEDS: INSULIN ASPART [NOVOLOG] 3 ML PEN SC SCH ×6 (01:30→21:52)
[2017-04-16] MEDS: LEVOTHYROXINE 125 MCG TAB GTB SCH (06:11)
[2017-04-16] MEDS: METOCLOPRAMIDE (1 MG/ML) 10 ML CUP PO SCH ×3 (06:11→22:44)
[2017-04-16] MEDS: LANSOPRAZOLE 30 MG CAP GTB SCH (06:11)
[2017-04-16 07:01] LABS: ABNORMAL IP MESSAGE 1; HEMATOCRIT 33.2 % (37.0-47.0); HEMOGLOBIN 10.7 g/dl (12.0-16.0); MEAN CORPUSCULAR HEMOGLOBIN 29.2 pg (29.0-33.0); MEAN CORPUSCULAR HGB CONC 32.2 g/dl (32.0-37.0); MEAN CORPUSCULAR VOLUME 90.7 fl (82.0-101.0); MEAN PLATELET VOLUME 11.8 fl (7.4-10.4); PLATELET COUNT 80 10^3/UL (140-415); RED BLOOD COUNT 3.66 10^6/ul (4.20-5.40); WHITE BLOOD COUNT 12.9 10^3/ul (4.8-10.8)
[2017-04-16 07:08] LABS: CALCIUM 8.1 mg/dl (8.4-10.2); CREATININE 1.92 mg/dl (0.44-1.00); MAGNESIUM 2.1 mg/dl (1.7-2.5); PHOSPHORUS 2.5 mg/dl (2.5-4.9); POTASSIUM 3.7 mmol/L (3.5-5.1)
--- NOTE | 2017-04-16 07:53 | PN ---
Date/Time of Note Date/Time of Note DATE: 04/16/17 TIME: 07:52 Assessment/Plan Lines/Catheters IV C[facility]ter Type ([facility] PICC Line Urinary Cath still in place: Yes Assessment/Plan Chief Complaint/Hosp Course 1. End-stage renal disease. The patient is receiving daily dialysis for solute clearance and volume removal. Plan for hd today for 3 hours. 2. Anemia of chronic disease. Continue to monitor hemoglobin and hematocrit levels. Will transfuse 2 units of PRBC 3. Mineral bone disorder. Monitor calcium phosphorus levels 4. Hyponatremia secondary to end-stage renal disease, improved 5. Hypokalemia, improved 6. Septic shock, etiology is multifactorial secondary to urinary tract infection and pneumonia. Continue current broad spectrum antibiotics, continue pressor support. 7. Ventilator dependent respiratory failure. Vent settings have been reviewed. ABG have been reviewed. Continue to monitor. 8. Dysphagia status post percutaneous endoscopic gastrostomy. Continue tube feeding. 9. History of coronary artery disease. 10. Diabetes. Continue Accu-Cheks and sliding scale. 11. Hypothyroidism. Continue Synthroid. 12. History of anal cancer. 13. Acute on chronic encephalopathy, etiology is toxic metabolic. Continue to monitor. 14. Volume overload secondary to congestive heart failure, end-stage renal disease. Continue ultrafiltration with dialysis. Problems: Subjective 24 Hr Interval Summary Free Text/Dictation Patient remains critical on pressure support. Receiving daily dialysis for side clearance volume removal Exam/Review of Systems Vital Signs Vitals Vital Signs Date Time Temp Pulse Resp B/P Pulse Ox O2 Delivery O2 Flow Rate FiO2 04/16/17 07:00 96 14 122/53 100 04/16/17 05:20 35 04/16/17 04:00 98.7 Mechanical Ventilator Intake and Output 04/15/17 04/15/17 04/16/17 15:00 23:00 07:00 Intake Total 1544.966 ml 603.093 ml 425.0 ml Output Total 4000 ml 20 ml Balance -2455.034 ml 603.093 ml 405.0 ml Exam HEENT: Head is normocephalic. NECK: Supple. HEART: Regular rate. LUNGS: Show diminished breath sounds at base. ABDOMEN: Soft, nontender to palpation. No rebound or guarding. EXTREMITIES: Negative for clubbing, cyanosis. Positive edema. DERMATOLOGIC: No rashes. MUSCULOSKELETAL: No joint effusions. NEUROLOGIC: No change in exam Results Result Diagram: 04/16/17 0600 04/16/17 0600 Results 24 hrs Laboratory Tests Test 04/15/17 09:00 04/15/17 13:27 04/15/17 17:18 04/15/17 21:55 Bedside Glucose 87 162 242 H 218 Test 04/16/17 01:27 04/16/17 05:17 04/16/17 06:00 04/16/17 06:15 Bedside Glucose 198 166 Lab Scanned Report BLOOD TRANSFUSION White Blood Count 12.9 #H Red Blood Count 3.66 #L Hemoglobin 10.7 #L Hematocrit 33.2 #L Mean Corpuscular Volume 90.7 Mean Corpuscular Hemoglobin 29.2 Mean Corpuscular Hemoglobin Concent 32.2 Red Cell Distribution Width 20.0 H Platelet Count 80 L Mean Platelet Volume 11.8 H Neutrophils % Eosinophils % Neutrophils # Eosinophils # Sodium Level 144 Potassium Level 3.7 Chloride Level 102 Carbon Dioxide Level 25 Anion Gap 21 #H Blood Urea Nitrogen 46 H Creatinine 1.92 H Glucose Level 171 Calcium Level 8.1 L Phosphorus Level 2.5 Magnesium Level 2.1 Medications Medications Current Medications Atorvastatin Calcium (Lipitor) 20 mg QHS GTB Last administered on 04/15/17 21: 53; Admin Dose 20 MG; Start 04/08/17 at 21:00 Acetaminophen/ Hydrocodone Bitart ([place] (5/325)) 1 tab Q6H PRN GTB SEVERE PAIN LEVEL 7-10 Last administered on 04/13/17 19:59; Admin Dose 1 TAB; Start at 19:30 Albuterol/ Ipratropium (Duoneb) 3 ml Q2H PRN NEB SHORTNESS OF BREATH; Start at 19:30 Lansoprazole (Prevacid) 30 mg DAILY@06 GTB Last administered on 04/16/17 06:11 ; Admin Dose 30 MG; Start 04/09/17 at 06:00 Levothyroxine Sodium (Synthroid) 125 mcg DAILY@06 GTB Last administered on 06:11; Admin Dose 125 MCG; Start 04/09/17 at 06:00 Lisinopril (Zestril) 2.5 mg BID GTB ; Start 04/08/17 at 21:00; Status Future Hold Metoprolol Tartrate (Lopressor) 25 mg BID GTB Last administered on 04/08/17 21 :30; Admin Dose 25 MG; Start 04/08/17 at 21:00; Status Future Hold Multivit/Ca Carb/ B Cmplx/FA/Prenat (Shayla-Anuradha) 1 tab DAILY GTB Last administered on 04/15/17 08:54; Admin Dose 1 TAB; Start 04/09/17 at 09:00 Quetiapine Fumarate (Seroquel) 25 mg BID GTB Last administered on 04/15/17 21: 53; Admin Dose 25 MG; Start 04/08/17 at 21:00 Trazodone HCl (Desyrel) 25 mg QHS PO Last administered on 04/15/17 21:53; Admin Dose 25 MG; Start 04/08/17 at 21:00 Insulin Detemir (Levemir) 5 unit BID SC Last administered on 04/15/17 21:57; Admin Dose 5 UNIT; Start 04/08/17 at 22:00 Acetaminophen (Tylenol Tab) 650 mg Q4H PRN PO PAIN AND OR ELEVATED TEMP; Start 04/08/17 at 19:30 Morphine Sulfate (morphine) 2 mg Q4H PRN IV PAIN LEVEL 8-10 Last administered on 04/15/17 13:57; Admin Dose 2 MG; Start 04/08/17 at 19:30 Miscellaneous Information 1 ea NOTE XX ; Start 04/08/17 at 20:00 Glucose (Glutose) 15 gm Q15M PRN PO DECREASED GLUCOSE; Start 04/08/17 at 20:00 Glucose (Glutose) 22.5 gm Q15M PRN PO DECREASED GLUCOSE; Start 04/08/17 at 20: 00 Dextrose (D50w Syringe) 25 ml Q15M PRN IV DECREASED GLUCOSE; Start 04/08/17 at 20:00 Dextrose (D50w Syringe) 50 ml Q15M PRN IV DECREASED GLUCOSE; Start 04/08/17 at 20:00 Glucagon (Glucagen) 1 mg Q15M PRN IM DECREASED GLUCOSE; Start 04/08/17 at 20:00 Glucose 15 gm 15 gm Q15M PRN BUCCAL DECREASED GLUCOSE; Start 04/08/17 at 20:00 Norepinephrine/ Dextrose (Levophed/D5W) 500 ml @ 1.87 mls/hr TITRATE IV Last administered on 04/15/17 11:25; Admin Dose 9.37 MLS/HR; Start 04/09/17 at 09:00 Collagenase (Santyl) 1 applic DAILY TOP Last administered on 04/15/17 09:07; Admin Dose 1 APPLIC; Start 04/09/17 at 14:00 Collagenase (Santyl) 1 applic DAILY PRN TOP WHEN SOILED; Start 04/09/17 at 13: 00 IV Flush (NS 10 ml) 10 ml PRN PRN IV FLUSH LINE; Start 04/10/17 at 16:30 Insulin Aspart (Novolog Insulin Pen) NOVOLOG *MODERATE* ALGORITHM Q4 SC Last administered on 04/16/17 06:19; Admin Dose 2 UNIT; Start 04/11/17 at 09:00 Gentamicin Sulfate (Gentamicin Iv Per Pharmacy) GENTAMICIN PER PHARMACY NOTE XX ; Start 04/11/17 at 10:30 Metoclopramide HCl (Reglan Liq) 5 mg Q8 PO Last administered on 04/16/17 06:11 ; Admin Dose 5 MG; Start 04/12/17 at 08:30 Povidone Iodine 1 applic 1 applic DAILY TOP Last administered on 04/15/17 09: 07; Admin Dose 1 APPLIC; Start 04/12/17 at 11:30 Meropenem (Merrem 500 Mg/ 100 ml (Pmx)) 100 ml @ 200 mls/hr 22 IVPB Last administered on 04/15/17 22:03; Admin Dose 200 MLS/HR; Start 04/15/17 at 22:00 ANJELICA SANCHEZ DO Apr 16, 2017 07:53
--- NOTE | 2017-04-16 08:57 | RADRPT ---
PROCEDURE: XR Chest 1 View. CLINICAL INDICATION: Shortness of breath. TECHNIQUE: AP view of the chest was obtained. COMPARISON: April 13, 2017 FINDINGS: The heart size is within normal limits. Calcified atherosclerosis is noted in the aorta. Median gloria rnotomy wires overlie the heart. Tracheostomy tube is stable and appears in grossly appropriate loc ation. Right-sided dialysis catheter is unchanged. Right upper lobe infiltrates are stable. Bilate ral lower lobe infiltrates have resolved. Small bilateral pleural effusions remain. Osseous structur es are intact. IMPRESSION: Calcified atherosclerosis in the aorta. Stable right upper lobe infiltrates. Interval resolution in bilateral lower lobe infiltrates. Small bilateral pleural effusions remain. RPTAT: AA .Kishore Lucero MD, Date Time Electronically viewed and signed by .Kishore Lucero MD, on 04/16/2017 08:57 .P/
[2017-04-16] MEDS: MULTIVIT/CA CARB/B CMPLX/FA TAB GTB SCH (09:05)
[2017-04-16] MEDS: POVIDONE IODINE 10% 28.4 GM OINT TOP SCH (09:06)
[2017-04-16] MEDS: QUETIAPINE 25 MG TAB GTB SCH ×2 (09:06→21:26)
[2017-04-16] MEDS: BALSAM PERU/CASTOR OIL 60 GM TUBE TOP SCH ×2 (09:06→21:00)
[2017-04-16] MEDS: COLLAGENASE 30 GM TUBE TOP SCH (09:07)
[2017-04-16] MEDS: INSULIN DETEMIR [LEVEMIR] 3ML CART SC SCH ×2 (09:11→21:51)
[2017-04-16 10:54] LABS: LYMPHOCYTES # 0.5 10^3/ul (0.8-2.9); MONOCYTE # 0.4 10^3/ul (0.3-0.9); MYELOCYTES # 0.1
[2017-04-16 10:55] LABS: PLATELET ESTIMATE PLT APPEAR DECREASED
--- NOTE | 2017-04-16 11:08 | PN ---
Date/Time of Note Date/Time of Note DATE: 04/16/17 TIME: 11:00 Assessment/Plan VTE Prophylaxis VTE Prophylaxis Intervention: other Lines/Catheters IV Catheter Type (from [facility]): Perma Cath Urinary Cath still in place: Yes Reason Cath still needed: urinary retention Assessment/Plan Assessment/Plan 1. Septic shock with Klebsiella bacteremia. Continue antibiotics per ID. Dr. Thurston group is following in infection disease consultation. Continue pressors for blood pressure support. 2. Acute respiratory failure. Continue ventilatory support. 3. Diabetes mellitus. Continue Levemir and NovoLog. 4. Systolic heart failure. Continue hemodialysis for fluid removal. 5. End-stage renal disease. Continue hemodialysis. 6. Anoxic encephalopathy. No acute issues. 7. Anemia of chronic disease. Continue Epogen.SP 2 UNITS PRBC transfusion 8. Hypothyroidism. Continue Synthroid. 9. Dyslipidemia. Continue Lipitor. 10. Possible history of psychosis. Continue Seroquel and trazodone. Further recommendations based on clinical course. Plan of care discussed with Dr. Guerrero. Subjective 24 Hr Interval Summary Free Text/Dictation Patient is awake and alert On Levophed at 5 mcgs/hr. on 6 mcg/hr during HD per staff. Afebrile, WBC wnl, no diarrhea continues on ventilatory support - 14, 500, 35, 5. Getting hemodialysis- hypotension- will get albumin per dialysis nurse Hemoglobin 7.2 - sp transfusion 2 units of packed red blood cells- H/H - 10.7/ 33.2 Constitutional: requiring IVF, requiring O2 Cardiovascular: no complaints Gastrointestinal: no complaints Genitourinary: no complaints Musculoskeletal: no complaints Exam/Review of Systems Vital Signs Vitals Vital Signs Date Time Temp Pulse Resp B/P Pulse Ox O2 Delivery O2 Flow Rate FiO2 04/16/17 10:40 93 04/16/17 09:45 14 130/54 99 04/16/17 07:30 98.7 04/16/17 05:20 35 04/16/17 04:00 Mechanical Ventilator Intake and Output 04/15/17 04/15/17 04/16/17 15:00 23:00 07:00 Intake Total 1544.966 ml 603.093 ml 472.5 ml Output Total 4000 ml 20 ml Balance -2455.034 ml 603.093 ml 452.5 ml Exam Constitutional: alert Cardiovascular: nl pulses, other (SR 80-90's), regular rate and rhythm Gastrointestinal: non-tender, other (GT intact- tolerates TF at 40 cc/hr), soft Extremities: edema Neurological: other (alert, aawake, responsive to name/touch/pain) Lymph: other Results Result Diagram: 04/16/17 0600 04/16/17 0600 Results 24 hrs Laboratory Tests Test 04/15/17 13:27 04/15/17 17:18 04/15/17 21:55 04/16/17 01:27 Bedside Glucose 162 242 H 218 198 Test 04/16/17 05:17 04/16/17 06:00 04/16/17 06:15 04/16/17 09:04 Lab Scanned Report BLOOD TRANSFUSION White Blood Count 12.9 #H Red Blood Count 3.66 #L Hemoglobin 10.7 #L Hematocrit 33.2 #L Mean Corpuscular Volume 90.7 Mean Corpuscular Hemoglobin 29.2 Mean Corpuscular Hemoglobin Concent 32.2 Red Cell Distribution Width 20.0 H Platelet Count 80 L Mean Platelet Volume 11.8 H Neutrophils % 85.0 H Band Neutrophils % 7.0 H Lymphocytes % 4.0 L Monocytes % 3.0 Eosinophils % Myelocytes % 1.0 H Neutrophils # 11.0 H Lymphocytes # 0.5 L Monocytes # 0.4 Eosinophils # Myelocytes # 0.1 Platelet Estimate PLT APPEAR DECREASED Sodium Level 144 Potassium Level 3.7 Chloride Level 102 Carbon Dioxide Level 25 Anion Gap 21 #H Blood Urea Nitrogen 46 H Creatinine 1.92 H Glucose Level 171 Calcium Level 8.1 L Phosphorus Level 2.5 Magnesium Level 2.1 Bedside Glucose 166 172 Medications Medications Current Medications Atorvastatin Calcium (Lipitor) 20 mg QHS GTB Last administered on 04/15/17 21: 53; Admin Dose 20 MG; Start 04/08/17 at 21:00 Acetaminophen/ Hydrocodone Bitart ([place] (5/325)) 1 tab Q6H PRN GTB SEVERE PAIN LEVEL 7-10 Last administered on 04/13/17 19:59; Admin Dose 1 TAB; Start at 19:30 Albuterol/ Ipratropium (Duoneb) 3 ml Q2H PRN NEB SHORTNESS OF BREATH; Start at 19:30 Lansoprazole (Prevacid) 30 mg DAILY@06 GTB Last administered on 04/16/17 06:11 ; Admin Dose 30 MG; Start 04/09/17 at 06:00 Levothyroxine Sodium (Synthroid) 125 mcg DAILY@06 GTB Last administered on 06:11; Admin Dose 125 MCG; Start 04/09/17 at 06:00 Lisinopril (Zestril) 2.5 mg BID GTB ; Start 04/08/17 at 21:00; Status Future Hold Metoprolol Tartrate (Lopressor) 25 mg BID GTB Last administered on 04/08/17 21 :30; Admin Dose 25 MG; Start 04/08/17 at 21:00; Status Future Hold Multivit/Ca Carb/ B Cmplx/FA/Prenat (Shayla-Anuradha) 1 tab DAILY GTB Last administered on 04/16/17 09:05; Admin Dose 1 TAB; Start 04/09/17 at 09:00 Quetiapine Fumarate (Seroquel) 25 mg BID GTB Last administered on 04/16/17 09: 06; Admin Dose 25 MG; Start 04/08/17 at 21:00 Trazodone HCl (Desyrel) 25 mg QHS PO Last administered on 04/15/17 21:53; Admin Dose 25 MG; Start 04/08/17 at 21:00 Insulin Detemir (Levemir) 5 unit BID SC Last administered on 04/16/17 09:11; Admin Dose 5 UNIT; Start 04/08/17 at 22:00 Acetaminophen (Tylenol Tab) 650 mg Q4H PRN PO PAIN AND OR ELEVATED TEMP; Start 04/08/17 at 19:30 Morphine Sulfate (morphine) 2 mg Q4H PRN IV PAIN LEVEL 8-10 Last administered on 04/15/17 13:57; Admin Dose 2 MG; Start 04/08/17 at 19:30 Miscellaneous Information 1 ea NOTE XX ; Start 04/08/17 at 20:00 Glucose (Glutose) 15 gm Q15M PRN PO DECREASED GLUCOSE; Start 04/08/17 at 20:00 Glucose (Glutose) 22.5 gm Q15M PRN PO DECREASED GLUCOSE; Start 04/08/17 at 20: 00 Dextrose (D50w Syringe) 25 ml Q15M PRN IV DECREASED GLUCOSE; Start 04/08/17 at 20:00 Dextrose (D50w Syringe) 50 ml Q15M PRN IV DECREASED GLUCOSE; Start 04/08/17 at 20:00 Glucagon (Glucagen) 1 mg Q15M PRN IM DECREASED GLUCOSE; Start 04/08/17 at 20:00 Glucose 15 gm 15 gm Q15M PRN BUCCAL DECREASED GLUCOSE; Start 04/08/17 at 20:00 Norepinephrine/ Dextrose (Levophed/D5W) 500 ml @ 1.87 mls/hr TITRATE IV Last administered on 04/15/17 11:25; Admin Dose 9.37 MLS/HR; Start 04/09/17 at 09:00 Collagenase (Santyl) 1 applic DAILY TOP Last administered on 04/16/17 09:07; Admin Dose 1 APPLIC; Start 04/09/17 at 14:00 Collagenase (Santyl) 1 applic DAILY PRN TOP WHEN SOILED; Start 04/09/17 at 13: 00 IV Flush (NS 10 ml) 10 ml PRN PRN IV FLUSH LINE; Start 04/10/17 at 16:30 Insulin Aspart (Novolog Insulin Pen) NOVOLOG *MODERATE* ALGORITHM Q4 SC Last administered on 04/16/17 09:08; Admin Dose 1 UNIT; Start 04/11/17 at 09:00 Gentamicin Sulfate (Gentamicin Iv Per Pharmacy) GENTAMICIN PER PHARMACY NOTE XX ; Start 04/11/17 at 10:30 Metoclopramide HCl (Reglan Liq) 5 mg Q8 PO Last administered on 04/16/17 06:11 ; Admin Dose 5 MG; Start 04/12/17 at 08:30 Povidone Iodine 1 applic 1 applic DAILY TOP Last administered on 04/16/17 09:06 ; Admin Dose 1 APPLIC; Start 04/12/17 at 11:30 Meropenem (Merrem 500 Mg/ 100 ml (Pmx)) 100 ml @ 200 mls/hr 22 IVPB Last administered on 04/15/17 22:03; Admin Dose 200 MLS/HR; Start 04/15/17 at 22:00 VIRGINIA RODARTE Apr 16, 2017 11:08
[2017-04-16] MEDS: GENTAMICIN 80 MG/NS (PMX) 50 ML IVPB SCH (13:30)
--- NOTE | 2017-04-16 13:58 | RADRPT ---
PROCEDURE: US upper extremity Venous. CLINICAL INDICATION: Right arm swelling TECHNIQUE: Multiple sonographic images of the right upper extremity venous system was obtained uti lizing grayscale, color-flow, compressive sonography and doppler imaging with augmentation. The josias ges were reviewed on a PACS workstation. The patient refused evaluation of the left upper extremity. COMPARISON: None. FINDINGS: There is normal compressibility and flow within the right subclavian vein, axillary vein, brachial, basilic, cephalic , radial and ulnar veins. The right internal jugular vein was not evaluated due to overlying bandages for a ventilator. RPTAT: AA IMPRESSION: No sonographic evidence for venous thrombosis in the right upper extremity, as above. The right internal jugular vein and left upper extremity are not evaluated, as above. Physician Kaylin Date Time Electronically viewed and signed by Diaz Figueroa Physician on 04/16/2017 13:58 /
--- NOTE | 2017-04-16 13:59 | RADRPT ---
PROCEDURE: US Lower extremity venous, bilateral CLINICAL INDICATION: edema/pain TECHNIQUE: Multiple sonographic images of the bilateral lower extremity deep venous system was ob tained utilizing grayscale, color-flow, compressive sonography and doppler imaging with augmentation . The images were reviewed on a PACS workstation. COMPARISON: None. FINDINGS: There is normal compressibility and flow within the bilateral common femoral, superficial femoral , posterior tibial, peroneal and popliteal veins. RPTAT: AA IMPRESSION: No sonographic evidence for deep venous thrombosis in bilateral lower extremities. Physician Kaylin Date Time Electronically viewed and signed by Physician Kaylin on 04/16/2017 13:58 RA/
--- NOTE | 2017-04-16 14:01 | CONS ---
Date/Time of Note Date/Time of Note DATE: 04/16/17 TIME: 14:00 Assessment/Plan Assessment/Plan Chief Complaint/Hosp Course - septic shock due to bacteremia (Klebsiella) - bacteremia due to klebsiella, likely from PNA - complicated UTI due to enterobacter - possible HCAP due to klebsiella and pseudomonas, with moderate pleural effusion - acute toxic metabolic encephalopathy - improving - rectal bleeding at [facility] prior to admission, possibly due to radiation proctitis. So far no bleeding after arrival - normocytic anemia - h/o anal CA s/p radiation - diverticulosis without diverticulitis on CT - mild ascites - bloody secretion via trach, possible due to CHF - pulm edema and volume overload - ESRD on HD, via permacath on R chest wall. 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 - ventilator dependent resp failure s/p tracheostomy placement - G tube dependent status - diarrhea; C diff negative - resolved - reported allergy to penicillin and sulfa drugs - reactions unknown recommendations: - pending results: blood cx x2 from HD catheter, TTE - continue meropenem until cultures are finalized - continue gentamicin for pseudomonas, plus double coverage for klebsiella and enterobacter - recommend orthopedic/neurosurgery consult re; potential destructive change at the L4-5 disk space with apparent posterior retropulsion of portion of artificial disk (seen on CT) Problems: Consultation Date/Type/Reason Admit Date/Time Apr 08, 2017 at 16:19 Initial Consult Date 04/09/17 Type of Consultation: id Referring Provider: IVAN MALLOY MD Exam/Review of Systems Vital Signs Vitals Vital Signs Date Time Temp Pulse Resp B/P Pulse Ox O2 Delivery O2 Flow Rate FiO2 04/16/17 12:46 92 04/16/17 12:10 14 04/16/17 11:45 126/51 100 04/16/17 10:00 35 04/16/17 07:30 98.7 04/16/17 04:00 Mechanical Ventilator Intake and Output 04/15/17 04/15/17 04/16/17 15:00 23:00 07:00 Intake Total 1544.966 ml 603.093 ml 472.5 ml Output Total 4000 ml 20 ml Balance -2455.034 ml 603.093 ml 452.5 ml Exam Constitutional: alert, oriented, well developed Psych: nl mood/affect, no complaints Head: atraumatic, normocephalic Eyes: EOMI, nl conjunctiva ENMT: nl external ears & nose, nl lips & teeth, nl nasal mucosa & septum Respiratory: clear to auscultation, normal air movement Cardiovascular: nl pulses, regular rate and rhythm Gastrointestinal: nl liver, spleen, non-tender, soft Results Result Diagram: 04/16/17 0600 04/16/17 0600 Results 24 hrs Laboratory Tests Test 04/15/17 17:18 04/15/17 21:55 04/16/17 01:27 04/16/17 05:17 Bedside Glucose 242 H 218 198 Lab Scanned Report BLOOD TRANSFUSION Test 04/16/17 06:00 04/16/17 06:15 04/16/17 09:04 04/16/17 13:27 White Blood Count 12.9 #H Red Blood Count 3.66 #L Hemoglobin 10.7 #L Hematocrit 33.2 #L Mean Corpuscular Volume 90.7 Mean Corpuscular Hemoglobin 29.2 Mean Corpuscular Hemoglobin Concent 32.2 Red Cell Distribution Width 20.0 H Platelet Count 80 L Mean Platelet Volume 11.8 H Neutrophils % 85.0 H Band Neutrophils % 7.0 H Lymphocytes % 4.0 L Monocytes % 3.0 Eosinophils % Myelocytes % 1.0 H Neutrophils # 11.0 H Lymphocytes # 0.5 L Monocytes # 0.4 Eosinophils # Myelocytes # 0.1 Platelet Estimate PLT APPEAR DECREASED Sodium Level 144 Potassium Level 3.7 Chloride Level 102 Carbon Dioxide Level 25 Anion Gap 21 #H Blood Urea Nitrogen 46 H Creatinine 1.92 H Glucose Level 171 Calcium Level 8.1 L Phosphorus Level 2.5 Magnesium Level 2.1 Bedside Glucose 166 172 119 Medications Medications Current Medications Atorvastatin Calcium (Lipitor) 20 mg QHS GTB Last administered on 04/15/17 21: 53; Admin Dose 20 MG; Start 04/08/17 at 21:00 Acetaminophen/ Hydrocodone Bitart ([place] (5/325)) 1 tab Q6H PRN GTB SEVERE PAIN LEVEL 7-10 Last administered on 04/13/17 19:59; Admin Dose 1 TAB; Start at 19:30 Albuterol/ Ipratropium (Duoneb) 3 ml Q2H PRN NEB SHORTNESS OF BREATH; Start at 19:30 Lansoprazole (Prevacid) 30 mg DAILY@06 GTB Last administered on 04/16/17 06:11 ; Admin Dose 30 MG; Start 04/09/17 at 06:00 Levothyroxine Sodium (Synthroid) 125 mcg DAILY@06 GTB Last administered on 06:11; Admin Dose 125 MCG; Start 04/09/17 at 06:00 Lisinopril (Zestril) 2.5 mg BID GTB ; Start 04/08/17 at 21:00; Status Future Hold Metoprolol Tartrate (Lopressor) 25 mg BID GTB Last administered on 04/08/17 21 :30; Admin Dose 25 MG; Start 04/08/17 at 21:00; Status Future Hold Multivit/Ca Carb/ B Cmplx/FA/Prenat (Shayla-Anuradha) 1 tab DAILY GTB Last administered on 04/16/17 09:05; Admin Dose 1 TAB; Start 04/09/17 at 09:00 Quetiapine Fumarate (Seroquel) 25 mg BID GTB Last administered on 04/16/17 09: 06; Admin Dose 25 MG; Start 04/08/17 at 21:00 Trazodone HCl (Desyrel) 25 mg QHS PO Last administered on 04/15/17 21:53; Admin Dose 25 MG; Start 04/08/17 at 21:00 Insulin Detemir (Levemir) 5 unit BID SC Last administered on 04/16/17 09:11; Admin Dose 5 UNIT; Start 04/08/17 at 22:00 Acetaminophen (Tylenol Tab) 650 mg Q4H PRN PO PAIN AND OR ELEVATED TEMP; Start 04/08/17 at 19:30 Morphine Sulfate (morphine) 2 mg Q4H PRN IV PAIN LEVEL 8-10 Last administered on 04/15/17 13:57; Admin Dose 2 MG; Start 04/08/17 at 19:30 Miscellaneous Information 1 ea NOTE XX ; Start 04/08/17 at 20:00 Glucose (Glutose) 15 gm Q15M PRN PO DECREASED GLUCOSE; Start 04/08/17 at 20:00 Glucose (Glutose) 22.5 gm Q15M PRN PO DECREASED GLUCOSE; Start 04/08/17 at 20: 00 Dextrose (D50w Syringe) 25 ml Q15M PRN IV DECREASED GLUCOSE; Start 04/08/17 at 20:00 Dextrose (D50w Syringe) 50 ml Q15M PRN IV DECREASED GLUCOSE; Start 04/08/17 at 20:00 Glucagon (Glucagen) 1 mg Q15M PRN IM DECREASED GLUCOSE; Start 04/08/17 at 20:00 Glucose 15 gm 15 gm Q15M PRN BUCCAL DECREASED GLUCOSE; Start 04/08/17 at 20:00 Norepinephrine/ Dextrose (Levophed/D5W) 500 ml @ 1.87 mls/hr TITRATE IV Last administered on 04/15/17 11:25; Admin Dose 9.37 MLS/HR; Start 04/09/17 at 09:00 Collagenase (Santyl) 1 applic DAILY TOP Last administered on 04/16/17 09:07; Admin Dose 1 APPLIC; Start 04/09/17 at 14:00 Collagenase (Santyl) 1 applic DAILY PRN TOP WHEN SOILED; Start 04/09/17 at 13: 00 IV Flush (NS 10 ml) 10 ml PRN PRN IV FLUSH LINE; Start 04/10/17 at 16:30 Insulin Aspart (Novolog Insulin Pen) NOVOLOG *MODERATE* ALGORITHM Q4 SC Last administered on 04/16/17 09:08; Admin Dose 1 UNIT; Start 04/11/17 at 09:00 Gentamicin Sulfate (Gentamicin Iv Per Pharmacy) GENTAMICIN PER PHARMACY NOTE XX ; Start 04/11/17 at 10:30 Metoclopramide HCl (Reglan Liq) 5 mg Q8 PO Last administered on 04/16/17 13:34 ; Admin Dose 5 MG; Start 04/12/17 at 08:30 Povidone Iodine 1 applic 1 applic DAILY TOP Last administered on 04/16/17 09:06 ; Admin Dose 1 APPLIC; Start 04/12/17 at 11:30 Meropenem (Merrem 500 Mg/ 100 ml (Pmx)) 100 ml @ 200 mls/hr 22 IVPB Last administered on 04/15/17 22:03; Admin Dose 200 MLS/HR; Start 04/15/17 at 22:00 PATY BOND MD Apr 16, 2017 14:00
--- NOTE | 2017-04-16 15:17 | CONS ---
Date/Time of Note Date/Time of Note DATE: 04/16/17 TIME: 15:14 Consult Date/Type/Reason Admit Date/Time Apr 08, 2017 at 16:19 Initial Consult Date 04/09/17 Type of Consultation: Pulm/CCM Ordering Provider: IVAN MALLOY MD [facility] -2.2 UF. Objective Vital Signs Date Time Temp Pulse Resp B/P Pulse Ox O2 Delivery O2 Flow Rate FiO2 04/16/17 12:46 92 04/16/17 12:10 14 04/16/17 11:45 126/51 100 04/16/17 10:00 35 04/16/17 07:30 98.7 04/16/17 04:00 Mechanical Ventilator Intake and Output 04/15/17 04/15/17 04/16/17 15:00 23:00 07:00 Intake Total 1544.966 ml 603.093 ml 472.5 ml Output Total 4000 ml 20 ml Balance -2455.034 ml 603.093 ml 452.5 ml Exam HEENT: Neck supple; no JVD; no LAD; trach site clear CVS: RRR, S1 and S2 CHEST: Clear ABD: Soft, NT, + BS EXT: + cyanosis Results/Medications Result Diagram: 04/16/17 0600 04/16/17 0600 Results 24 hrs Laboratory Tests Test 04/15/17 17:18 04/15/17 21:55 04/16/17 01:27 04/16/17 05:17 Bedside Glucose 242 H 218 198 Lab Scanned Report BLOOD TRANSFUSION Test 04/16/17 06:00 04/16/17 06:15 04/16/17 09:04 04/16/17 13:27 White Blood Count 12.9 #H Red Blood Count 3.66 #L Hemoglobin 10.7 #L Hematocrit 33.2 #L Mean Corpuscular Volume 90.7 Mean Corpuscular Hemoglobin 29.2 Mean Corpuscular Hemoglobin Concent 32.2 Red Cell Distribution Width 20.0 H Platelet Count 80 L Mean Platelet Volume 11.8 H Neutrophils % 85.0 H Band Neutrophils % 7.0 H Lymphocytes % 4.0 L Monocytes % 3.0 Eosinophils % Myelocytes % 1.0 H Neutrophils # 11.0 H Lymphocytes # 0.5 L Monocytes # 0.4 Eosinophils # Myelocytes # 0.1 Platelet Estimate PLT APPEAR DECREASED Sodium Level 144 Potassium Level 3.7 Chloride Level 102 Carbon Dioxide Level 25 Anion Gap 21 #H Blood Urea Nitrogen 46 H Creatinine 1.92 H Glucose Level 171 Calcium Level 8.1 L Phosphorus Level 2.5 Magnesium Level 2.1 Bedside Glucose 166 172 119 Medications Current Medications Atorvastatin Calcium (Lipitor) 20 mg QHS GTB Last administered on 04/15/17 21: 53; Admin Dose 20 MG; Start 04/08/17 at 21:00 Acetaminophen/ Hydrocodone Bitart ([place] (5/325)) 1 tab Q6H PRN GTB SEVERE PAIN LEVEL 7-10 Last administered on 04/13/17 19:59; Admin Dose 1 TAB; Start at 19:30 Albuterol/ Ipratropium (Duoneb) 3 ml Q2H PRN NEB SHORTNESS OF BREATH; Start at 19:30 Lansoprazole (Prevacid) 30 mg DAILY@06 GTB Last administered on 04/16/17 06:11 ; Admin Dose 30 MG; Start 04/09/17 at 06:00 Levothyroxine Sodium (Synthroid) 125 mcg DAILY@06 GTB Last administered on 06:11; Admin Dose 125 MCG; Start 04/09/17 at 06:00 Lisinopril (Zestril) 2.5 mg BID GTB ; Start 04/08/17 at 21:00; Status Future Hold Metoprolol Tartrate (Lopressor) 25 mg BID GTB Last administered on 04/08/17 21 :30; Admin Dose 25 MG; Start 04/08/17 at 21:00; Status Future Hold Multivit/Ca Carb/ B Cmplx/FA/Prenat (Shayla-Anuradha) 1 tab DAILY GTB Last administered on 04/16/17 09:05; Admin Dose 1 TAB; Start 04/09/17 at 09:00 Quetiapine Fumarate (Seroquel) 25 mg BID GTB Last administered on 04/16/17 09: 06; Admin Dose 25 MG; Start 04/08/17 at 21:00 Trazodone HCl (Desyrel) 25 mg QHS PO Last administered on 04/15/17 21:53; Admin Dose 25 MG; Start 04/08/17 at 21:00 Insulin Detemir (Levemir) 5 unit BID SC Last administered on 04/16/17 09:11; Admin Dose 5 UNIT; Start 04/08/17 at 22:00 Acetaminophen (Tylenol Tab) 650 mg Q4H PRN PO PAIN AND OR ELEVATED TEMP; Start 04/08/17 at 19:30 Morphine Sulfate (morphine) 2 mg Q4H PRN IV PAIN LEVEL 8-10 Last administered on 04/15/17 13:57; Admin Dose 2 MG; Start 04/08/17 at 19:30 Miscellaneous Information 1 ea NOTE XX ; Start 04/08/17 at 20:00 Glucose (Glutose) 15 gm Q15M PRN PO DECREASED GLUCOSE; Start 04/08/17 at 20:00 Glucose (Glutose) 22.5 gm Q15M PRN PO DECREASED GLUCOSE; Start 04/08/17 at 20: 00 Dextrose (D50w Syringe) 25 ml Q15M PRN IV DECREASED GLUCOSE; Start 04/08/17 at 20:00 Dextrose (D50w Syringe) 50 ml Q15M PRN IV DECREASED GLUCOSE; Start 04/08/17 at 20:00 Glucagon (Glucagen) 1 mg Q15M PRN IM DECREASED GLUCOSE; Start 04/08/17 at 20:00 Glucose 15 gm 15 gm Q15M PRN BUCCAL DECREASED GLUCOSE; Start 04/08/17 at 20:00 Norepinephrine/ Dextrose (Levophed/D5W) 500 ml @ 1.87 mls/hr TITRATE IV Last administered on 04/15/17 11:25; Admin Dose 9.37 MLS/HR; Start 04/09/17 at 09:00 Collagenase (Santyl) 1 applic DAILY TOP Last administered on 04/16/17 09:07; Admin Dose 1 APPLIC; Start 04/09/17 at 14:00 Collagenase (Santyl) 1 applic DAILY PRN TOP WHEN SOILED; Start 04/09/17 at 13: 00 IV Flush (NS 10 ml) 10 ml PRN PRN IV FLUSH LINE; Start 04/10/17 at 16:30 Insulin Aspart (Novolog Insulin Pen) NOVOLOG *MODERATE* ALGORITHM Q4 SC Last administered on 04/16/17 09:08; Admin Dose 1 UNIT; Start 6/26/17 at 09:00 Gentamicin Sulfate (Gentamicin Iv Per Pharmacy) GENTAMICIN PER PHARMACY NOTE XX ; Start 04/11/17 at 10:30 Metoclopramide HCl (Reglan Liq) 5 mg Q8 PO Last administered on 04/16/17 13:34 ; Admin Dose 5 MG; Start 04/12/17 at 08:30 Povidone Iodine 1 applic 1 applic DAILY TOP Last administered on 04/16/17 09:06 ; Admin Dose 1 APPLIC; Start 04/12/17 at 11:30 Meropenem (Merrem 500 Mg/ 100 ml (Pmx)) 100 ml @ 200 mls/hr 22 IVPB Last administered on 04/15/17 22:03; Admin Dose 200 MLS/HR; Start 04/15/17 at 22:00 Assessment/Plan Additional Assessment/Plan IMP: 1. Septic shock with klebsiella bacteremia. 2. VDRF 3. ESRD on HD 4. CHF 5. Encephalopathy RECS: 1. Titrate levophed gtt to MAP > 60 2. Continue HD/UF 3. Abx per ID 4. Am labs 35 min cc time KELLY MALCOLM MD Apr 16, 2017 15:17
[2017-04-16] MEDS: traZODone 50 MG TAB PO SCH (21:26)
[2017-04-16] MEDS: ATORVASTATIN 20 MG TAB GTB SCH (21:26)
--- NOTE | 2017-04-16 21:59 | CONS ---
Date/Time of Note Date/Time of Note DATE: 04/16/17 TIME: 21:56 Assessment/Plan Assessment/Plan Chief Complaint/Hosp Course IMPRESSION: 1. Sepsis. 2. Coronary artery disease with systolic heart failure. Continue hemodialysis to remove fluids. 3. Coronary artery disease, status post coronary artery bypass graft. 4. Dysphagia on tube feeds 5. Respiratory failure. Continue vent support. Will obtain a pulmonary consult from [facility]. 6. abdominal distension: CT unrevealing, minimal residual. 7. Anal cancer with recent rectal bleed. Status post radiation treatment. Her rectal bleeding is most probably from radiation proctitis 8. History of pulseless electrical activity with possible anoxic encephalopathy. Will continue to monitor. 9. History of GI bleed. 10. Dyslipidemia. 11. Anasarca, and ascites 12. Renal failure on dialysis 13. Encephalopathy, resolved patient is alert awake and oriented 14. Anemia multifactorial, stable now Plan Continue all supportive care Continue antibiotic Increase feeding through the G-tube at 40 cc/h, which patient is tolerating well More fluid to be removed during dialysis. Problems: Consultation Date/Type/Reason Admit Date/Time Apr 08, 2017 at 16:19 Initial Consult Date 04/09/17 Type of Consultation: GI Referring Provider: IVAN MALLOY MD 24 HR Interval Summary Free Text/Dictation s/p HD, awake Exam/Review of Systems Vital Signs Vitals Vital Signs Date Time Temp Pulse Resp B/P Pulse Ox O2 Delivery O2 Flow Rate FiO2 04/16/17 21:37 98 18 100 30 04/16/17 21:15 125/48 Mechanical Ventilator 04/16/17 20:00 98.3 Intake and Output 04/15/17 04/15/17 04/16/17 15:00 23:00 07:00 Intake Total 1544.966 ml 603.093 ml 472.5 ml Output Total 4000 ml 20 ml Balance -2455.034 ml 603.093 ml 452.5 ml Exam Constitutional: alert Psych: nl mood/affect, no complaints Head: atraumatic, normocephalic Eyes: EOMI, nl conjunctiva, nl lids, nl sclera ENMT: mucosa pink and moist, nl external ears & nose, nl lips & teeth, nl nasal mucosa & septum Neck: non-tender, supple Respiratory: clear to auscultation, normal air movement Cardiovascular: nl pulses, regular rate and rhythm Gastrointestinal: bowel sounds, non-tender, soft Results Result Diagram: 04/16/17 0600 04/16/17 0600 Results 24 hrs Laboratory Tests Test 04/16/17 01:27 04/16/17 05:17 04/16/17 06:00 04/16/17 06:15 Bedside Glucose 198 166 Lab Scanned Report BLOOD TRANSFUSION White Blood Count 12.9 #H Red Blood Count 3.66 #L Hemoglobin 10.7 #L Hematocrit 33.2 #L Mean Corpuscular Volume 90.7 Mean Corpuscular Hemoglobin 29.2 Mean Corpuscular Hemoglobin Concent 32.2 Red Cell Distribution Width 20.0 H Platelet Count 80 L Mean Platelet Volume 11.8 H Neutrophils % 85.0 H Band Neutrophils % 7.0 H Lymphocytes % 4.0 L Monocytes % 3.0 Eosinophils % Myelocytes % 1.0 H Neutrophils # 11.0 H Lymphocytes # 0.5 L Monocytes # 0.4 Eosinophils # Myelocytes # 0.1 Platelet Estimate PLT APPEAR DECREASED Sodium Level 144 Potassium Level 3.7 Chloride Level 102 Carbon Dioxide Level 25 Anion Gap 21 #H Blood Urea Nitrogen 46 H Creatinine 1.92 H Glucose Level 171 Calcium Level 8.1 L Phosphorus Level 2.5 Magnesium Level 2.1 Test 04/16/17 09:04 04/16/17 13:27 04/16/17 17:17 04/16/17 21:34 Bedside Glucose 172 119 128 197 Medications Medications Current Medications Atorvastatin Calcium (Lipitor) 20 mg QHS GTB Last administered on 04/16/17 21: 26; Admin Dose 20 MG; Start 04/08/17 at 21:00 Acetaminophen/ Hydrocodone Bitart ([place] (5/325)) 1 tab Q6H PRN GTB SEVERE PAIN LEVEL 7-10 Last administered on 04/13/17 19:59; Admin Dose 1 TAB; Start at 19:30 Albuterol/ Ipratropium (Duoneb) 3 ml Q2H PRN NEB SHORTNESS OF BREATH; Start at 19:30 Lansoprazole (Prevacid) 30 mg DAILY@06 GTB Last administered on 04/16/17 06:11 ; Admin Dose 30 MG; Start 04/09/17 at 06:00 Levothyroxine Sodium (Synthroid) 125 mcg DAILY@06 GTB Last administered on 06:11; Admin Dose 125 MCG; Start 04/09/17 at 06:00 Lisinopril (Zestril) 2.5 mg BID GTB ; Start 04/08/17 at 21:00; Status Future Hold Metoprolol Tartrate (Lopressor) 25 mg BID GTB Last administered on 04/08/17 21 :30; Admin Dose 25 MG; Start 04/08/17 at 21:00; Status Future Hold Multivit/Ca Carb/ B Cmplx/FA/Prenat (Shayla-Anuradha) 1 tab DAILY GTB Last administered on 04/16/17 09:05; Admin Dose 1 TAB; Start 04/09/17 at 09:00 Quetiapine Fumarate (Seroquel) 25 mg BID GTB Last administered on 04/16/17 21: 26; Admin Dose 25 MG; Start 04/08/17 at 21:00 Trazodone HCl (Desyrel) 25 mg QHS PO Last administered on 04/16/17 21:26; Admin Dose 25 MG; Start 04/08/17 at 21:00 Insulin Detemir (Levemir) 5 unit BID SC Last administered on 04/16/17 21:51; Admin Dose 5 UNIT; Start 04/08/17 at 22:00 Acetaminophen (Tylenol Tab) 650 mg Q4H PRN PO PAIN AND OR ELEVATED TEMP; Start 04/08/17 at 19:30 Morphine Sulfate (morphine) 2 mg Q4H PRN IV PAIN LEVEL 8-10 Last administered on 04/15/17 13:57; Admin Dose 2 MG; Start 04/08/17 at 19:30 Miscellaneous Information 1 ea NOTE XX ; Start 04/08/17 at 20:00 Glucose (Glutose) 15 gm Q15M PRN PO DECREASED GLUCOSE; Start 04/08/17 at 20:00 Glucose (Glutose) 22.5 gm Q15M PRN PO DECREASED GLUCOSE; Start 04/08/17 at 20: 00 Dextrose (D50w Syringe) 25 ml Q15M PRN IV DECREASED GLUCOSE; Start 04/08/17 at 20:00 Dextrose (D50w Syringe) 50 ml Q15M PRN IV DECREASED GLUCOSE; Start 04/08/17 at 20:00 Glucagon (Glucagen) 1 mg Q15M PRN IM DECREASED GLUCOSE; Start 04/08/17 at 20:00 Glucose 15 gm 15 gm Q15M PRN BUCCAL DECREASED GLUCOSE; Start 04/08/17 at 20:00 Norepinephrine/ Dextrose (Levophed/D5W) 500 ml @ 1.87 mls/hr TITRATE IV Last administered on 04/15/17 11:25; Admin Dose 9.37 MLS/HR; Start 04/09/17 at 09:00 Collagenase (Santyl) 1 applic DAILY TOP Last administered on 04/16/17 09:07; Admin Dose 1 APPLIC; Start 04/09/17 at 14:00 Collagenase (Santyl) 1 applic DAILY PRN TOP WHEN SOILED; Start 04/09/17 at 13: 00 IV Flush (NS 10 ml) 10 ml PRN PRN IV FLUSH LINE; Start 04/10/17 at 16:30 Insulin Aspart (Novolog Insulin Pen) NOVOLOG *MODERATE* ALGORITHM Q4 SC Last administered on 04/16/17 21:52; Admin Dose 1 UNIT; Start 04/11/17 at 09:00 Gentamicin Sulfate (Gentamicin Iv Per Pharmacy) GENTAMICIN PER PHARMACY NOTE XX ; Start 04/11/17 at 10:30 Metoclopramide HCl (Reglan Liq) 5 mg Q8 PO Last administered on 04/16/17 13:34 ; Admin Dose 5 MG; Start 04/12/17 at 08:30 Povidone Iodine 1 applic 1 applic DAILY TOP Last administered on 04/16/17 09:06 ; Admin Dose 1 APPLIC; Start 04/12/17 at 11:30 Meropenem (Merrem 500 Mg/ 100 ml (Pmx)) 100 ml @ 200 mls/hr 22 IVPB Last administered on 04/15/17 22:03; Admin Dose 200 MLS/HR; Start 04/15/17 at 22:00 KIM RANDOLPH MD Apr 16, 2017 21:58
[2017-04-16] MEDS: MEROPENEM 500 MG/100 ML (PMX) 100 ML IVPB SCH (22:44)
[2017-04-17] VITALS (107 sets, daily range): BP systolic 72–135; BP diastolic 43–67; PULSE 85–104; RESP 0–23
[2017-04-17] MEDS: INSULIN ASPART [NOVOLOG] 3 ML PEN SC SCH ×6 (01:23→21:00)
[2017-04-17] MEDS: morphine 2 MG INJ IV PRN ×2 (02:11→22:53)
[2017-04-17 04:42] LABS: ABNORMAL IP MESSAGE 1; BASOPHILS % 0.2 % (0.0-2.0); HEMATOCRIT 32.5 % (37.0-47.0); HEMOGLOBIN 10.5 g/dl (12.0-16.0); LYMPHOCYTES # 0.7 10^3/ul (0.8-2.9); MEAN CORPUSCULAR HEMOGLOBIN 29.2 pg (29.0-33.0); MEAN CORPUSCULAR HGB CONC 32.3 g/dl (32.0-37.0); MEAN CORPUSCULAR VOLUME 90.5 fl (82.0-101.0); MEAN PLATELET VOLUME 11.4 fl (7.4-10.4); MONOCYTE # 0.5 10^3/ul (0.3-0.9); MONOCYTES % 3.9 % (0.0-11.0); NEUTROPHIL # 11.3 10^3/ul (1.6-7.5); NEUTROPHILS % 86.3 % (39.0-77.0); PLATELET COUNT 85 10^3/UL (140-415); RED BLOOD COUNT 3.59 10^6/ul (4.20-5.40); RED CELL DISTRIBUTION WIDTH 19.6 % (11.5-14.5); WHITE BLOOD COUNT 13.1 10^3/ul (4.8-10.8)
[2017-04-17 04:47] LABS: ADD SCAN DIFF NO
[2017-04-17 05:03] LABS: ALBUMIN 2.9 g/dl (3.3-4.9); ALBUMIN/GLOBULIN RATIO 0.85; BILIRUBIN,INDIRECT 0.2 mg/dl (0-1.1); BILIRUBIN,TOTAL 0.2 mg/dl (0.2-1.3); CALCIUM 7.9 mg/dl (8.4-10.2); CREATININE 1.79 mg/dl (0.44-1.00); POTASSIUM 3.4 mmol/L (3.5-5.1); TOTAL PROTEIN 6.3 g/dl (6.1-8.1)
[2017-04-17] MEDS: METOCLOPRAMIDE (1 MG/ML) 10 ML CUP PO SCH ×3 (05:03→21:18)
[2017-04-17] MEDS: LEVOTHYROXINE 125 MCG TAB GTB SCH (05:03)
[2017-04-17] MEDS: LANSOPRAZOLE 30 MG CAP GTB SCH ×2 (05:03→18:50)
--- NOTE | 2017-04-17 07:38 | PN ---
Date/Time of Note Date/Time of Note DATE: 04/17/17 TIME: 07:36 Assessment/Plan Lines/Catheters IV Catheter Type (from [facility]): PERMACATH Urinary Cath still in place: Yes Assessment/Plan Chief Complaint/Hosp Course 1. End-stage renal disease. The patient is receiving daily dialysis for solute clearance and volume removal. Plan for UF today for 2hours. 2. Anemia of chronic disease. Continue to monitor hemoglobin and hematocrit levels. Status post blood transfusion 3. Mineral bone disorder. Monitor calcium phosphorus levels 4. Hyponatremia secondary to end-stage renal disease. Limit free water. HD 140 sodium bath 5. Hypokalemia, - replete with potassium chloride 6. Septic shock, etiology is multifactorial secondary to urinary tract infection and pneumonia. Continue current broad spectrum antibiotics, continue pressor support. 7. Ventilator dependent respiratory failure. Vent settings have been reviewed. ABG have been reviewed. Continue to monitor. 8. Dysphagia status post percutaneous endoscopic gastrostomy. Continue tube feeding. 9. History of coronary artery disease. 10. Diabetes. Continue Accu-Cheks and sliding scale. 11. Hypothyroidism. Continue Synthroid. 12. History of anal cancer. 13. Acute on chronic encephalopathy, etiology is toxic metabolic. Continue to monitor. 14. Volume overload secondary to congestive heart failure, end-stage renal disease. Continue ultrafiltration with dialysis. Problems: Subjective 24 Hr Interval Summary Free Text/Dictation Patient remains critical on pressure support. Received dialysis yesterday with 2-1/2 L removed. Exam/Review of Systems Vital Signs Vitals Vital Signs Date Time Temp Pulse Resp B/P Pulse Ox O2 Delivery O2 Flow Rate FiO2 04/17/17 07:16 90 14 100 30 04/17/17 06:30 113/50 Mechanical Ventilator 04/17/17 04:00 98.0 Intake and Output 04/16/17 04/16/17 04/17/17 15:00 23:00 07:00 Intake Total 980.24 ml 444.34 ml 449.34 ml Output Total 4900 ml Balance -3919.76 ml 444.34 ml 449.34 ml Exam HEENT: Head is normocephalic. NECK: Supple. HEART: Regular rate. LUNGS: Show diminished breath sounds at base. ABDOMEN: Soft, nontender to palpation. No rebound or guarding. EXTREMITIES: Negative for clubbing, cyanosis. Positive edema. DERMATOLOGIC: No rashes. MUSCULOSKELETAL: No joint effusions. NEUROLOGIC: No change in exam Results Result Diagram: 04/17/17 0345 04/17/17 0345 Results 24 hrs Laboratory Tests Test 04/16/17 09:04 04/16/17 13:27 04/16/17 17:17 04/16/17 21:34 Bedside Glucose 172 119 128 197 Test 04/17/17 01:11 04/17/17 03:45 04/17/17 05:11 Bedside Glucose 204 182 White Blood Count 13.1 H Red Blood Count 3.59 L Hemoglobin 10.5 L Hematocrit 32.5 L Mean Corpuscular Volume 90.5 Mean Corpuscular Hemoglobin 29.2 Mean Corpuscular Hemoglobin Concent 32.3 Red Cell Distribution Width 19.6 H Platelet Count 85 L Mean Platelet Volume 11.4 H Neutrophils % 86.3 H Lymphocytes % 5.0 L Monocytes % 3.9 Eosinophils % 0.0 Basophils % 0.2 Nucleated Red Blood Cells % 0.0 Neutrophils # 11.3 H Lymphocytes # 0.7 L Monocytes # 0.5 Eosinophils # 0.0 Basophils # 0.0 Nucleated Red Blood Cells # 0.0 Sodium Level 134 L Potassium Level 3.4 L Chloride Level 101 Carbon Dioxide Level 29 Anion Gap 7 #L Blood Urea Nitrogen 40 H Creatinine 1.79 H Glucose Level 170 Calcium Level 7.9 L Total Bilirubin 0.2 Direct Bilirubin 0.00 Indirect Bilirubin 0.2 Aspartate Amino Transf (AST/SGOT) 35 Alanine Aminotransferase (ALT/SGPT) 24 Alkaline Phosphatase 245 H Total Protein 6.3 Albumin 2.9 L Globulin 3.40 H Albumin/Globulin Ratio 0.85 Medications Medications Current Medications Atorvastatin Calcium (Lipitor) 20 mg QHS GTB Last administered on 04/16/17 21: 26; Admin Dose 20 MG; Start 04/08/17 at 21:00 Acetaminophen/ Hydrocodone Bitart ([place] (5/325)) 1 tab Q6H PRN GTB SEVERE PAIN LEVEL 7-10 Last administered on 04/13/17 19:59; Admin Dose 1 TAB; Start at 19:30 Albuterol/ Ipratropium (Duoneb) 3 ml Q2H PRN NEB SHORTNESS OF BREATH; Start at 19:30 Lansoprazole (Prevacid) 30 mg DAILY@06 GTB Last administered on 04/17/17 05:03 ; Admin Dose 30 MG; Start 04/09/17 at 06:00 Levothyroxine Sodium (Synthroid) 125 mcg DAILY@06 GTB Last administered on 05:03; Admin Dose 125 MCG; Start 04/09/17 at 06:00 Lisinopril (Zestril) 2.5 mg BID GTB ; Start 04/08/17 at 21:00; Status Future Hold Metoprolol Tartrate (Lopressor) 25 mg BID GTB Last administered on 04/08/17 21 :30; Admin Dose 25 MG; Start 04/08/17 at 21:00; Status Future Hold Multivit/Ca Carb/ B Cmplx/FA/Prenat (Shayla-Anuradha) 1 tab DAILY GTB Last administered on 04/16/17 09:05; Admin Dose 1 TAB; Start 04/09/17 at 09:00 Quetiapine Fumarate (Seroquel) 25 mg BID GTB Last administered on 04/16/17 21: 26; Admin Dose 25 MG; Start 04/08/17 at 21:00 Trazodone HCl (Desyrel) 25 mg QHS PO Last administered on 04/16/17 21:26; Admin Dose 25 MG; Start 04/08/17 at 21:00 Insulin Detemir (Levemir) 5 unit BID SC Last administered on 04/16/17 21:51; Admin Dose 5 UNIT; Start 04/08/17 at 22:00 Acetaminophen (Tylenol Tab) 650 mg Q4H PRN PO PAIN AND OR ELEVATED TEMP; Start 04/08/17 at 19:30 Morphine Sulfate (morphine) 2 mg Q4H PRN IV PAIN LEVEL 8-10 Last administered on 04/17/17 02:11; Admin Dose 2 MG; Start 04/08/17 at 19:30 Miscellaneous Information 1 ea NOTE XX ; Start 04/08/17 at 20:00 Glucose (Glutose) 15 gm Q15M PRN PO DECREASED GLUCOSE; Start 04/08/17 at 20:00 Glucose (Glutose) 22.5 gm Q15M PRN PO DECREASED GLUCOSE; Start 04/08/17 at 20: 00 Dextrose (D50w Syringe) 25 ml Q15M PRN IV DECREASED GLUCOSE; Start 04/08/17 at 20:00 Dextrose (D50w Syringe) 50 ml Q15M PRN IV DECREASED GLUCOSE; Start 04/08/17 at 20:00 Glucagon (Glucagen) 1 mg Q15M PRN IM DECREASED GLUCOSE; Start 04/08/17 at 20:00 Glucose 15 gm 15 gm Q15M PRN BUCCAL DECREASED GLUCOSE; Start 04/08/17 at 20:00 Norepinephrine/ Dextrose (Levophed/D5W) 500 ml @ 1.87 mls/hr TITRATE IV Last administered on 04/15/17 11:25; Admin Dose 9.37 MLS/HR; Start 04/09/17 at 09:00 Collagenase (Santyl) 1 applic DAILY TOP Last administered on 04/16/17 09:07; Admin Dose 1 APPLIC; Start 04/09/17 at 14:00 Collagenase (Santyl) 1 applic DAILY PRN TOP WHEN SOILED; Start 04/09/17 at 13: 00 IV Flush (NS 10 ml) 10 ml PRN PRN IV FLUSH LINE; Start 04/10/17 at 16:30 Insulin Aspart (Novolog Insulin Pen) NOVOLOG *MODERATE* ALGORITHM Q4 SC Last administered on 04/17/17 05:18; Admin Dose 1 UNIT; Start 04/11/17 at 09:00 Gentamicin Sulfate (Gentamicin Iv Per Pharmacy) GENTAMICIN PER PHARMACY NOTE XX ; Start 04/11/17 at 10:30 Metoclopramide HCl (Reglan Liq) 5 mg Q8 PO Last administered on 04/17/17 05:03 ; Admin Dose 5 MG; Start 04/12/17 at 08:30 Povidone Iodine 1 applic 1 applic DAILY TOP Last administered on 04/16/17 09:06 ; Admin Dose 1 APPLIC; Start 04/12/17 at 11:30 Meropenem 100 ml @ 200 mls/hr 22 IVPB Last administered on 04/16/17 22:44; Admin Dose 200 MLS/HR; Start 04/15/17 at 22:00 Potassium Chloride (KCl 40 MEQ/250 ML NS) 250 ml @ 62.5 mls/hr ONCE ONCE IVPB ; Start 04/17/17 at 08:00; Stop 04/17/17 at 11:59; Status ANJELICA CONRAD DO Apr 17, 2017 07:38
[2017-04-17] MEDS ORDERED: [UNRECOGNIZED DRUG - REMARK] XX SCH (08:00)
[2017-04-17] MEDS ORDERED: POTASSIUM CHLORIDE 250 ML IVPB ONE (08:00)
[2017-04-17] MEDS: BALSAM PERU/CASTOR OIL 60 GM TUBE TOP SCH (09:00)
[2017-04-17] MEDS: POVIDONE IODINE 10% 28.4 GM OINT TOP SCH (09:00)
[2017-04-17] MEDS: COLLAGENASE 30 GM TUBE TOP SCH (09:00)
[2017-04-17] MEDS: INSULIN DETEMIR [LEVEMIR] 3ML CART SC SCH ×3 (09:00→21:21)
--- NOTE | 2017-04-17 09:21 | CONS ---
Date/Time of Note Date/Time of Note DATE: 04/17/17 TIME: 09:18 Assessment/Plan Assessment/Plan Chief Complaint/Hosp Course IMPRESSION: 1. Sepsis. 2. Coronary artery disease with systolic heart failure. Continue hemodialysis to remove fluids. 3. Coronary artery disease, status post coronary artery bypass graft. 4. Dysphagia on tube feeds 5. Respiratory failure. Continue vent support. Will obtain a pulmonary consult from [facility]. 6. abdominal distension: CT unrevealing, minimal residual. 7. Anal cancer with recent rectal bleed. Status post radiation treatment. Her rectal bleeding is most probably from radiation proctitis 8. History of pulseless electrical activity with possible anoxic encephalopathy. Will continue to monitor. 9. History of GI bleed. 10. Dyslipidemia. 11. Anasarca, and ascites 12. Renal failure on dialysis 13. Encephalopathy, resolved patient is alert awake and oriented 14. Anemia multifactorial, stable now Plan increase lansoprazole to bid dosing Continue antibiotic continue tube feeding through the G-tube at 40 cc/h, which patient is tolerating well More fluid to be removed during dialysis. Problems: Consultation Date/Type/Reason Admit Date/Time Apr 08, 2017 at 16:19 Initial Consult Date 04/09/17 Type of Consultation: GI Referring Provider: IVAN MALLOY MD 24 HR Interval Summary Subjective hx not possible: pt non-verbal Exam/Review of Systems Vital Signs Vitals Vital Signs Date Time Temp Pulse Resp B/P Pulse Ox O2 Delivery O2 Flow Rate FiO2 04/17/17 07:16 90 14 100 30 04/17/17 06:30 113/50 Mechanical Ventilator 04/17/17 04:00 98.0 Intake and Output 04/16/17 04/16/17 04/17/17 15:00 23:00 07:00 Intake Total 980.24 ml 444.34 ml 449.34 ml Output Total 4900 ml Balance -3919.76 ml 444.34 ml 449.34 ml Exam Constitutional: non-verbal Head: atraumatic, normocephalic Eyes: EOMI, nl conjunctiva, nl lids, nl sclera ENMT: mucosa pink and moist, nl external ears & nose, nl lips & teeth, nl nasal mucosa & septum Neck: non-tender, supple Respiratory: clear to auscultation, normal air movement Cardiovascular: nl pulses, regular rate and rhythm Gastrointestinal: bowel sounds, non-tender, soft Neurological: nl mental status, nl speech, nl strength Results Result Diagram: 04/17/17 0345 04/17/17 0345 Results 24 hrs Laboratory Tests Test 04/16/17 13:27 04/16/17 17:17 04/16/17 21:34 04/17/17 01:11 Bedside Glucose 119 128 197 204 Test 04/17/17 03:45 04/17/17 05:11 White Blood Count 13.1 H Red Blood Count 3.59 L Hemoglobin 10.5 L Hematocrit 32.5 L Mean Corpuscular Volume 90.5 Mean Corpuscular Hemoglobin 29.2 Mean Corpuscular Hemoglobin Concent 32.3 Red Cell Distribution Width 19.6 H Platelet Count 85 L Mean Platelet Volume 11.4 H Neutrophils % 86.3 H Lymphocytes % 5.0 L Monocytes % 3.9 Eosinophils % 0.0 Basophils % 0.2 Nucleated Red Blood Cells % 0.0 Neutrophils # 11.3 H Lymphocytes # 0.7 L Monocytes # 0.5 Eosinophils # 0.0 Basophils # 0.0 Nucleated Red Blood Cells # 0.0 Sodium Level 134 L Potassium Level 3.4 L Chloride Level 101 Carbon Dioxide Level 29 Anion Gap 7 #L Blood Urea Nitrogen 40 H Creatinine 1.79 H Glucose Level 170 Calcium Level 7.9 L Total Bilirubin 0.2 Direct Bilirubin 0.00 Indirect Bilirubin 0.2 Aspartate Amino Transf (AST/SGOT) 35 Alanine Aminotransferase (ALT/SGPT) 24 Alkaline Phosphatase 245 H Total Protein 6.3 Albumin 2.9 L Globulin 3.40 H Albumin/Globulin Ratio 0.85 Bedside Glucose 182 Medications Medications Current Medications Atorvastatin Calcium (Lipitor) 20 mg QHS GTB Last administered on 04/16/17 21: 26; Admin Dose 20 MG; Start 04/08/17 at 21:00 Acetaminophen/ Hydrocodone Bitart ([place] (5/325)) 1 tab Q6H PRN GTB SEVERE PAIN LEVEL 7-10 Last administered on 04/13/17 19:59; Admin Dose 1 TAB; Start at 19:30 Albuterol/ Ipratropium (Duoneb) 3 ml Q2H PRN NEB SHORTNESS OF BREATH; Start at 19:30 Lansoprazole (Prevacid) 30 mg DAILY@06 GTB Last administered on 04/17/17 05:03 ; Admin Dose 30 MG; Start 04/09/17 at 06:00 Levothyroxine Sodium (Synthroid) 125 mcg DAILY@06 GTB Last administered on 05:03; Admin Dose 125 MCG; Start 04/09/17 at 06:00 Lisinopril (Zestril) 2.5 mg BID GTB ; Start 04/08/17 at 21:00; Status Future Hold Metoprolol Tartrate (Lopressor) 25 mg BID GTB Last administered on 04/08/17 21 :30; Admin Dose 25 MG; Start 04/08/17 at 21:00; Status Future Hold Multivit/Ca Carb/ B Cmplx/FA/Prenat (Shayla-Anuradha) 1 tab DAILY GTB Last administered on 04/16/17 09:05; Admin Dose 1 TAB; Start 04/09/17 at 09:00 Quetiapine Fumarate (Seroquel) 25 mg BID GTB Last administered on 04/16/17 21: 26; Admin Dose 25 MG; Start 04/08/17 at 21:00 Trazodone HCl (Desyrel) 25 mg QHS PO Last administered on 04/16/17 21:26; Admin Dose 25 MG; Start 04/08/17 at 21:00 Insulin Detemir (Levemir) 5 unit BID SC Last administered on 04/16/17 21:51; Admin Dose 5 UNIT; Start 04/08/17 at 22:00 Acetaminophen (Tylenol Tab) 650 mg Q4H PRN PO PAIN AND OR ELEVATED TEMP; Start 04/08/17 at 19:30 Morphine Sulfate (morphine) 2 mg Q4H PRN IV PAIN LEVEL 8-10 Last administered on 04/17/17 02:11; Admin Dose 2 MG; Start 04/08/17 at 19:30 Miscellaneous Information 1 ea NOTE XX ; Start 04/08/17 at 20:00 Glucose (Glutose) 15 gm Q15M PRN PO DECREASED GLUCOSE; Start 04/08/17 at 20:00 Glucose (Glutose) 22.5 gm Q15M PRN PO DECREASED GLUCOSE; Start 04/08/17 at 20: 00 Dextrose (D50w Syringe) 25 ml Q15M PRN IV DECREASED GLUCOSE; Start 04/08/17 at 20:00 Dextrose (D50w Syringe) 50 ml Q15M PRN IV DECREASED GLUCOSE; Start 04/08/17 at 20:00 Glucagon (Glucagen) 1 mg Q15M PRN IM DECREASED GLUCOSE; Start 04/08/17 at 20:00 Glucose 15 gm 15 gm Q15M PRN BUCCAL DECREASED GLUCOSE; Start 04/08/17 at 20:00 Norepinephrine/ Dextrose (Levophed/D5W) 500 ml @ 1.87 mls/hr TITRATE IV Last administered on 04/15/17 11:25; Admin Dose 9.37 MLS/HR; Start 04/09/17 at 09:00 Collagenase (Santyl) 1 applic DAILY TOP Last administered on 04/16/17 09:07; Admin Dose 1 APPLIC; Start 04/09/17 at 14:00 Collagenase (Santyl) 1 applic DAILY PRN TOP WHEN SOILED; Start 04/09/17 at 13: 00 IV Flush (NS 10 ml) 10 ml PRN PRN IV FLUSH LINE; Start 04/10/17 at 16:30 Gentamicin Sulfate (Gentamicin Iv Per Pharmacy) GENTAMICIN PER PHARMACY NOTE XX ; Start 04/11/17 at 10:30 Metoclopramide HCl (Reglan Liq) 5 mg Q8 PO Last administered on 04/17/17 05:03 ; Admin Dose 5 MG; Start 04/12/17 at 08:30 Povidone Iodine 1 applic 1 applic DAILY TOP Last administered on 04/16/17 09:06 ; Admin Dose 1 APPLIC; Start 04/12/17 at 11:30 Meropenem 100 ml @ 200 mls/hr 22 IVPB Last administered on 04/16/17 22:44; Admin Dose 200 MLS/HR; Start 04/15/17 at 22:00 Potassium Chloride (KCl 40 MEQ/250 ML NS) 250 ml @ 62.5 mls/hr ONCE ONCE IVPB ; Start 04/17/17 at 08:00; Stop 04/17/17 at 11:59 Miscellaneous Information (*Rx Drug Level Order Reminder*) GENTAMICIN RANDOM LE... ONCE XX ; Start 04/17/17 at 08:00; Stop 04/17/17 at 20:00 Insulin Aspart (Novolog Insulin Pen) NOVOLOG *MODERATE* ALGORI... Q4 SC ; Start 04/17/17 at 09:00 KIM RANDOLPH MD Apr 17, 2017 09:21
[2017-04-17] MEDS: MULTIVIT/CA CARB/B CMPLX/FA TAB GTB SCH (10:34)
[2017-04-17] MEDS: QUETIAPINE 25 MG TAB GTB SCH ×2 (10:38→21:19)
--- NOTE | 2017-04-17 11:19 | PN ---
Date/Time of Note Date/Time of Note DATE: 04/17/17 TIME: 11:11 Assessment/Plan Lines/Catheters IV Catheter Type (from Nrs): PERMACATH Urinary Cath still in place: Yes Reason Cath still needed: urinary retention Assessment/Plan Assessment/Plan 1. Septic shock with Klebsiella bacteremia. Continue antibiotics per ID. Dr. Thurston group is following in infection disease consultation. Continue pressors for blood pressure support. 2. Acute respiratory failure. Continue ventilatory support. 3. Diabetes mellitus. Continue Levemir and NovoLog. 4. Systolic heart failure. Continue hemodialysis for fluid removal. 5. End-stage renal disease. Continue hemodialysis. 6. Anoxic encephalopathy. No acute issues. 7. Anemia of chronic disease. Continue Epogen.SP 2 UNITS PRBC transfusion 8. Hypothyroidism. Continue Synthroid. 9. Dyslipidemia. Continue Lipitor. 10. Possible history of psychosis. Continue Seroquel and trazodone. Further recommendations based on clinical course. Plan of care discussed with Dr. Guerrero. Subjective 24 Hr Interval Summary Free Text/Dictation Planning for HD today, afebrile, trach intACT, on Levo- 2.5 mcg /hr, BS is controlled. seems comfortable. dw staff Cardiovascular: no complaints Gastrointestinal: no complaints Exam/Review of Systems Vital Signs Vitals Vital Signs Date Time Temp Pulse Resp B/P Pulse Ox O2 Delivery O2 Flow Rate FiO2 04/17/17 09:16 92 14 100 30 04/17/17 06:30 113/50 Mechanical Ventilator 04/17/17 04:00 98.0 Intake and Output 04/16/17 04/16/17 04/17/17 15:00 23:00 07:00 Intake Total 980.24 ml 444.34 ml 449.34 ml Output Total 4900 ml Balance -3919.76 ml 444.34 ml 449.34 ml Exam Constitutional: alert, well developed Respiratory: clear to auscultation, normal air movement Cardiovascular: nl pulses, regular rate and rhythm Gastrointestinal: non-tender, soft Musculoskeletal: nl extremities to inspection Extremities: normal pulses Neurological: other Results Result Diagram: 04/17/17 0345 04/17/17 0345 Results 24 hrs Laboratory Tests Test 04/16/17 13:27 04/16/17 17:17 04/16/17 21:34 04/17/17 01:11 Bedside Glucose 119 128 197 204 Test 04/17/17 03:45 04/17/17 05:11 04/17/17 09:40 White Blood Count 13.1 H Red Blood Count 3.59 L Hemoglobin 10.5 L Hematocrit 32.5 L Mean Corpuscular Volume 90.5 Mean Corpuscular Hemoglobin 29.2 Mean Corpuscular Hemoglobin Concent 32.3 Red Cell Distribution Width 19.6 H Platelet Count 85 L Mean Platelet Volume 11.4 H Neutrophils % 86.3 H Lymphocytes % 5.0 L Monocytes % 3.9 Eosinophils % 0.0 Basophils % 0.2 Nucleated Red Blood Cells % 0.0 Neutrophils # 11.3 H Lymphocytes # 0.7 L Monocytes # 0.5 Eosinophils # 0.0 Basophils # 0.0 Nucleated Red Blood Cells # 0.0 Sodium Level 134 L Potassium Level 3.4 L Chloride Level 101 Carbon Dioxide Level 29 Anion Gap 7 #L Blood Urea Nitrogen 40 H Creatinine 1.79 H Glucose Level 170 Calcium Level 7.9 L Total Bilirubin 0.2 Direct Bilirubin 0.00 Indirect Bilirubin 0.2 Aspartate Amino Transf (AST/SGOT) 35 Alanine Aminotransferase (ALT/SGPT) 24 Alkaline Phosphatase 245 H Total Protein 6.3 Albumin 2.9 L Globulin 3.40 H Albumin/Globulin Ratio 0.85 Bedside Glucose 182 190 Medications Medications Current Medications Atorvastatin Calcium (Lipitor) 20 mg QHS GTB Last administered on 04/16/17 21: 26; Admin Dose 20 MG; Start 04/08/17 at 21:00 Acetaminophen/ Hydrocodone Bitart ([place] (5/325)) 1 tab Q6H PRN GTB SEVERE PAIN LEVEL 7-10 Last administered on 04/13/17 19:59; Admin Dose 1 TAB; Start at 19:30 Albuterol/ Ipratropium (Duoneb) 3 ml Q2H PRN NEB SHORTNESS OF BREATH; Start at 19:30 Levothyroxine Sodium (Synthroid) 125 mcg DAILY@06 GTB Last administered on 05:03; Admin Dose 125 MCG; Start 04/09/17 at 06:00 Lisinopril (Zestril) 2.5 mg BID GTB ; Start 04/08/17 at 21:00; Status Future Hold Metoprolol Tartrate (Lopressor) 25 mg BID GTB Last administered on 04/08/17 21 :30; Admin Dose 25 MG; Start 04/08/17 at 21:00; Status Future Hold Multivit/Ca Carb/ B Cmplx/FA/Prenat (Shayla-Anuradha) 1 tab DAILY GTB Last administered on 04/17/17 10:34; Admin Dose 1 TAB; Start 04/09/17 at 09:00 Quetiapine Fumarate (Seroquel) 25 mg BID GTB Last administered on 04/17/17 10: 38; Admin Dose 25 MG; Start 04/08/17 at 21:00 Trazodone HCl (Desyrel) 25 mg QHS PO Last administered on 04/16/17 21:26; Admin Dose 25 MG; Start 04/08/17 at 21:00 Acetaminophen (Tylenol Tab) 650 mg Q4H PRN PO PAIN AND OR ELEVATED TEMP; Start 04/08/17 at 19:30 Morphine Sulfate (morphine) 2 mg Q4H PRN IV PAIN LEVEL 8-10 Last administered on 04/17/17 02:11; Admin Dose 2 MG; Start 04/08/17 at 19:30 Miscellaneous Information 1 ea NOTE XX ; Start 04/08/17 at 20:00 Glucose (Glutose) 15 gm Q15M PRN PO DECREASED GLUCOSE; Start 04/08/17 at 20:00 Glucose (Glutose) 22.5 gm Q15M PRN PO DECREASED GLUCOSE; Start 04/08/17 at 20: 00 Dextrose (D50w Syringe) 25 ml Q15M PRN IV DECREASED GLUCOSE; Start 04/08/17 at 20:00 Dextrose (D50w Syringe) 50 ml Q15M PRN IV DECREASED GLUCOSE; Start 04/08/17 at 20:00 Glucagon (Glucagen) 1 mg Q15M PRN IM DECREASED GLUCOSE; Start 04/08/17 at 20:00 Glucose 15 gm 15 gm Q15M PRN BUCCAL DECREASED GLUCOSE; Start 04/08/17 at 20:00 Norepinephrine/ Dextrose (Levophed/D5W) 500 ml @ 1.87 mls/hr TITRATE IV Last administered on 04/15/17 11:25; Admin Dose 9.37 MLS/HR; Start 04/09/17 at 09:00 Collagenase (Santyl) 1 applic DAILY TOP Last administered on 04/17/17 09:00; Admin Dose 1 APPLIC; Start 04/09/17 at 14:00 Collagenase (Santyl) 1 applic DAILY PRN TOP WHEN SOILED; Start 04/09/17 at 13: 00 IV Flush (NS 10 ml) 10 ml PRN PRN IV FLUSH LINE; Start 04/10/17 at 16:30 Gentamicin Sulfate (Gentamicin Iv Per Pharmacy) GENTAMICIN PER PHARMACY NOTE XX ; Start 04/11/17 at 10:30 Metoclopramide HCl (Reglan Liq) 5 mg Q8 PO Last administered on 04/17/17 05:03 ; Admin Dose 5 MG; Start 04/12/17 at 08:30 Povidone Iodine 1 applic 1 applic DAILY TOP Last administered on 04/17/17 09:00 ; Admin Dose 1 APPLIC; Start 04/12/17 at 11:30 Meropenem 100 ml @ 200 mls/hr 22 IVPB Last administered on 04/16/17 22:44; Admin Dose 200 MLS/HR; Start 04/15/17 at 22:00 Potassium Chloride (KCl 40 MEQ/250 ML NS) 250 ml @ 62.5 mls/hr ONCE ONCE IVPB Last administered on 04/17/17 10:34; Admin Dose 62.5 MLS/HR; Start 04/17/17 at 08:00; Stop 04/17/17 at 11:59 Miscellaneous Information (*Rx Drug Level Order Reminder*) GENTAMICIN RANDOM LE... ONCE XX ; Start 04/17/17 at 08:00; Stop 04/17/17 at 20:00 Insulin Aspart (Novolog Insulin Pen) NOVOLOG *MODERATE* ALGORI... Q4 SC Last administered on 04/17/17 10:41; Admin Dose 4 UNIT; Start 04/17/17 at 09:00 Insulin Detemir (Levemir) 8 unit BID SC Last administered on 04/17/17 10:42; Admin Dose 8 UNIT; Start 04/17/17 at 21:00 VIRGINIA RODARTE Apr 17, 2017 11:19
--- NOTE | 2017-04-17 11:54 | CONS ---
Date/Time of Note Date/Time of Note DATE: 04/17/17 TIME: 11:53 Assessment/Plan Assessment/Plan Chief Complaint/Hosp Course - septic shock due to bacteremia (Klebsiella) - bacteremia due to klebsiella, likely from PNA - complicated UTI due to enterobacter - possible HCAP due to klebsiella and pseudomonas, with moderate pleural effusion - acute toxic metabolic encephalopathy - improving - rectal bleeding at [facility] prior to admission, possibly due to radiation proctitis. So far no bleeding after arrival - normocytic anemia - h/o anal CA s/p radiation - diverticulosis without diverticulitis on CT - mild ascites - bloody secretion via trach, possible due to CHF - pulm edema and volume overload - ESRD on HD, via permacath on R chest wall. 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 - ventilator dependent resp failure s/p tracheostomy placement - G tube dependent status - diarrhea; C diff negative - resolved - reported allergy to penicillin and sulfa drugs - reactions unknown recommendations: - pending results: blood cx x2 from HD catheter, TTE - continue meropenem until cultures are finalized - continue gentamicin for pseudomonas, plus double coverage for klebsiella and enterobacter - recommend orthopedic/neurosurgery consult re; potential destructive change at the L4-5 disk space with apparent posterior retropulsion of portion of artificial disk (seen on CT) Problems: Consultation Date/Type/Reason Admit Date/Time Apr 08, 2017 at 16:19 Initial Consult Date 04/09/17 Type of Consultation: id Referring Provider: IVAN MALLOY MD Exam/Review of Systems Vital Signs Vitals Vital Signs Date Time Temp Pulse Resp B/P Pulse Ox O2 Delivery O2 Flow Rate FiO2 04/17/17 10:57 93 17 100 30 04/17/17 06:30 113/50 Mechanical Ventilator 04/17/17 04:00 98.0 Intake and Output 04/16/17 04/16/17 04/17/17 15:00 23:00 07:00 Intake Total 980.24 ml 444.34 ml 449.34 ml Output Total 4900 ml Balance -3919.76 ml 444.34 ml 449.34 ml Results Result Diagram: 04/17/17 0345 04/17/17 0345 Results 24 hrs Laboratory Tests Test 04/16/17 13:27 04/16/17 17:17 04/16/17 21:34 04/17/17 01:11 Bedside Glucose 119 128 197 204 Test 04/17/17 03:45 04/17/17 05:11 04/17/17 09:40 White Blood Count 13.1 H Red Blood Count 3.59 L Hemoglobin 10.5 L Hematocrit 32.5 L Mean Corpuscular Volume 90.5 Mean Corpuscular Hemoglobin 29.2 Mean Corpuscular Hemoglobin Concent 32.3 Red Cell Distribution Width 19.6 H Platelet Count 85 L Mean Platelet Volume 11.4 H Neutrophils % 86.3 H Lymphocytes % 5.0 L Monocytes % 3.9 Eosinophils % 0.0 Basophils % 0.2 Nucleated Red Blood Cells % 0.0 Neutrophils # 11.3 H Lymphocytes # 0.7 L Monocytes # 0.5 Eosinophils # 0.0 Basophils # 0.0 Nucleated Red Blood Cells # 0.0 Sodium Level 134 L Potassium Level 3.4 L Chloride Level 101 Carbon Dioxide Level 29 Anion Gap 7 #L Blood Urea Nitrogen 40 H Creatinine 1.79 H Glucose Level 170 Calcium Level 7.9 L Total Bilirubin 0.2 Direct Bilirubin 0.00 Indirect Bilirubin 0.2 Aspartate Amino Transf (AST/SGOT) 35 Alanine Aminotransferase (ALT/SGPT) 24 Alkaline Phosphatase 245 H Total Protein 6.3 Albumin 2.9 L Globulin 3.40 H Albumin/Globulin Ratio 0.85 Bedside Glucose 182 190 Medications Medications Current Medications Atorvastatin Calcium (Lipitor) 20 mg QHS GTB Last administered on 04/16/17 21: 26; Admin Dose 20 MG; Start 04/08/17 at 21:00 Acetaminophen/ Hydrocodone Bitart ([place] (5/325)) 1 tab Q6H PRN GTB SEVERE PAIN LEVEL 7-10 Last administered on 04/13/17 19:59; Admin Dose 1 TAB; Start at 19:30 Albuterol/ Ipratropium (Duoneb) 3 ml Q2H PRN NEB SHORTNESS OF BREATH; Start at 19:30 Levothyroxine Sodium (Synthroid) 125 mcg DAILY@06 GTB Last administered on 05:03; Admin Dose 125 MCG; Start 04/09/17 at 06:00 Lisinopril (Zestril) 2.5 mg BID GTB ; Start 04/08/17 at 21:00; Status Future Hold Metoprolol Tartrate (Lopressor) 25 mg BID GTB Last administered on 04/08/17 21 :30; Admin Dose 25 MG; Start 04/08/17 at 21:00; Status Future Hold Multivit/Ca Carb/ B Cmplx/FA/Prenat (Shayla-Anuradha) 1 tab DAILY GTB Last administered on 04/17/17 10:34; Admin Dose 1 TAB; Start 04/09/17 at 09:00 Quetiapine Fumarate (Seroquel) 25 mg BID GTB Last administered on 04/17/17 10: 38; Admin Dose 25 MG; Start 04/08/17 at 21:00 Trazodone HCl (Desyrel) 25 mg QHS PO Last administered on 04/16/17 21:26; Admin Dose 25 MG; Start 04/08/17 at 21:00 Acetaminophen (Tylenol Tab) 650 mg Q4H PRN PO PAIN AND OR ELEVATED TEMP; Start 04/08/17 at 19:30 Morphine Sulfate (morphine) 2 mg Q4H PRN IV PAIN LEVEL 8-10 Last administered on 04/17/17 02:11; Admin Dose 2 MG; Start 04/08/17 at 19:30 Miscellaneous Information 1 ea NOTE XX ; Start 04/08/17 at 20:00 Glucose (Glutose) 15 gm Q15M PRN PO DECREASED GLUCOSE; Start 04/08/17 at 20:00 Glucose (Glutose) 22.5 gm Q15M PRN PO DECREASED GLUCOSE; Start 04/08/17 at 20: 00 Dextrose (D50w Syringe) 25 ml Q15M PRN IV DECREASED GLUCOSE; Start 04/08/17 at 20:00 Dextrose (D50w Syringe) 50 ml Q15M PRN IV DECREASED GLUCOSE; Start 04/08/17 at 20:00 Glucagon (Glucagen) 1 mg Q15M PRN IM DECREASED GLUCOSE; Start 04/08/17 at 20:00 Glucose 15 gm 15 gm Q15M PRN BUCCAL DECREASED GLUCOSE; Start 04/08/17 at 20:00 Norepinephrine/ Dextrose (Levophed/D5W) 500 ml @ 1.87 mls/hr TITRATE IV Last administered on 04/15/17 11:25; Admin Dose 9.37 MLS/HR; Start 04/09/17 at 09:00 Collagenase (Santyl) 1 applic DAILY TOP Last administered on 04/17/17 09:00; Admin Dose 1 APPLIC; Start 04/09/17 at 14:00 Collagenase (Santyl) 1 applic DAILY PRN TOP WHEN SOILED; Start 04/09/17 at 13: 00 IV Flush (NS 10 ml) 10 ml PRN PRN IV FLUSH LINE; Start 04/10/17 at 16:30 Gentamicin Sulfate (Gentamicin Iv Per Pharmacy) GENTAMICIN PER PHARMACY NOTE XX ; Start 04/11/17 at 10:30 Metoclopramide HCl (Reglan Liq) 5 mg Q8 PO Last administered on 04/17/17 05:03 ; Admin Dose 5 MG; Start 04/12/17 at 08:30 Povidone Iodine 1 applic 1 applic DAILY TOP Last administered on 04/17/17 09:00 ; Admin Dose 1 APPLIC; Start 04/12/17 at 11:30 Meropenem 100 ml @ 200 mls/hr 22 IVPB Last administered on 04/16/17 22:44; Admin Dose 200 MLS/HR; Start 04/15/17 at 22:00 Potassium Chloride (KCl 40 MEQ/250 ML NS) 250 ml @ 62.5 mls/hr ONCE ONCE IVPB Last administered on 04/17/17 10:34; Admin Dose 62.5 MLS/HR; Start 04/17/17 at 08:00; Stop 04/17/17 at 11:59 Miscellaneous Information (*Rx Drug Level Order Reminder*) GENTAMICIN RANDOM LE... ONCE XX ; Start 04/17/17 at 08:00; Stop 04/17/17 at 20:00 Insulin Aspart (Novolog Insulin Pen) NOVOLOG *MODERATE* ALGORI... Q4 SC Last administered on 04/17/17 10:41; Admin Dose 4 UNIT; Start 04/17/17 at 09:00 Insulin Detemir (Levemir) 8 unit BID SC Last administered on 04/17/17 10:42; Admin Dose 8 UNIT; Start 04/17/17 at 21:00 Acetaminophen (Tylenol Liquid) 650 mg Q6 PRN GTB PAIN AND OR ELEVATED TEMP; Start 04/17/17 at 11:30 PATY BOND MD Apr 17, 2017 11:54
--- NOTE | 2017-04-17 11:54 | CONS ---
Date/Time of Note Date/Time of Note DATE: 04/17/17 TIME: 11:53 Consult Date/Type/Reason Admit Date/Time Apr 08, 2017 at 16:19 Initial Consult Date 04/09/17 Type of Consultation: Pulm/CCM Ordering Provider: IVAN MALLOY MD Subjective No events on [facility] vent. Objective Vital Signs Date Time Temp Pulse Resp B/P Pulse Ox O2 Delivery O2 Flow Rate FiO2 04/17/17 10:57 93 17 100 30 04/17/17 06:30 113/50 Mechanical Ventilator 04/17/17 04:00 98.0 Intake and Output 04/16/17 04/16/17 04/17/17 15:00 23:00 07:00 Intake Total 980.24 ml 444.34 ml 449.34 ml Output Total 4900 ml Balance -3919.76 ml 444.34 ml 449.34 ml Exam HEENT: Neck supple; no JVD; no LAD; trach site clear CVS: RRR, S1 and S2 CHEST: Clear ABD: Soft, NT, + BS EXT: + cyanosis in LE Results/Medications Result Diagram: 04/17/17 0345 04/17/17 0345 Results 24 hrs Laboratory Tests Test 04/16/17 13:27 04/16/17 17:17 04/16/17 21:34 04/17/17 01:11 Bedside Glucose 119 128 197 204 Test 04/17/17 03:45 04/17/17 05:11 04/17/17 09:40 White Blood Count 13.1 H Red Blood Count 3.59 L Hemoglobin 10.5 L Hematocrit 32.5 L Mean Corpuscular Volume 90.5 Mean Corpuscular Hemoglobin 29.2 Mean Corpuscular Hemoglobin Concent 32.3 Red Cell Distribution Width 19.6 H Platelet Count 85 L Mean Platelet Volume 11.4 H Neutrophils % 86.3 H Lymphocytes % 5.0 L Monocytes % 3.9 Eosinophils % 0.0 Basophils % 0.2 Nucleated Red Blood Cells % 0.0 Neutrophils # 11.3 H Lymphocytes # 0.7 L Monocytes # 0.5 Eosinophils # 0.0 Basophils # 0.0 Nucleated Red Blood Cells # 0.0 Sodium Level 134 L Potassium Level 3.4 L Chloride Level 101 Carbon Dioxide Level 29 Anion Gap 7 #L Blood Urea Nitrogen 40 H Creatinine 1.79 H Glucose Level 170 Calcium Level 7.9 L Total Bilirubin 0.2 Direct Bilirubin 0.00 Indirect Bilirubin 0.2 Aspartate Amino Transf (AST/SGOT) 35 Alanine Aminotransferase (ALT/SGPT) 24 Alkaline Phosphatase 245 H Total Protein 6.3 Albumin 2.9 L Globulin 3.40 H Albumin/Globulin Ratio 0.85 Bedside Glucose 182 190 Medications Current Medications Atorvastatin Calcium (Lipitor) 20 mg QHS GTB Last administered on 04/16/17 21: 26; Admin Dose 20 MG; Start 04/08/17 at 21:00 Acetaminophen/ Hydrocodone Bitart ([place] (5/325)) 1 tab Q6H PRN GTB SEVERE PAIN LEVEL 7-10 Last administered on 04/13/17 19:59; Admin Dose 1 TAB; Start at 19:30 Albuterol/ Ipratropium (Duoneb) 3 ml Q2H PRN NEB SHORTNESS OF BREATH; Start at 19:30 Levothyroxine Sodium (Synthroid) 125 mcg DAILY@06 GTB Last administered on 05:03; Admin Dose 125 MCG; Start 04/09/17 at 06:00 Lisinopril (Zestril) 2.5 mg BID GTB ; Start 04/08/17 at 21:00; Status Future Hold Metoprolol Tartrate (Lopressor) 25 mg BID GTB Last administered on 04/08/17 21 :30; Admin Dose 25 MG; Start 04/08/17 at 21:00; Status Future Hold Multivit/Ca Carb/ B Cmplx/FA/Prenat (Shayla-Anuradha) 1 tab DAILY GTB Last administered on 04/17/17 10:34; Admin Dose 1 TAB; Start 04/09/17 at 09:00 Quetiapine Fumarate (Seroquel) 25 mg BID GTB Last administered on 04/17/17 10: 38; Admin Dose 25 MG; Start 04/08/17 at 21:00 Trazodone HCl (Desyrel) 25 mg QHS PO Last administered on 04/16/17 21:26; Admin Dose 25 MG; Start 04/08/17 at 21:00 Acetaminophen (Tylenol Tab) 650 mg Q4H PRN PO PAIN AND OR ELEVATED TEMP; Start 04/08/17 at 19:30 Morphine Sulfate (morphine) 2 mg Q4H PRN IV PAIN LEVEL 8-10 Last administered on 04/17/17 02:11; Admin Dose 2 MG; Start 04/08/17 at 19:30 Miscellaneous Information 1 ea NOTE XX ; Start 04/08/17 at 20:00 Glucose (Glutose) 15 gm Q15M PRN PO DECREASED GLUCOSE; Start 04/08/17 at 20:00 Glucose (Glutose) 22.5 gm Q15M PRN PO DECREASED GLUCOSE; Start 04/08/17 at 20: 00 Dextrose (D50w Syringe) 25 ml Q15M PRN IV DECREASED GLUCOSE; Start 04/08/17 at 20:00 Dextrose (D50w Syringe) 50 ml Q15M PRN IV DECREASED GLUCOSE; Start 04/08/17 at 20:00 Glucagon (Glucagen) 1 mg Q15M PRN IM DECREASED GLUCOSE; Start 04/08/17 at 20:00 Glucose 15 gm 15 gm Q15M PRN BUCCAL DECREASED GLUCOSE; Start 04/08/17 at 20:00 Norepinephrine/ Dextrose (Levophed/D5W) 500 ml @ 1.87 mls/hr TITRATE IV Last administered on 04/15/17 11:25; Admin Dose 9.37 MLS/HR; Start 04/09/17 at 09:00 Collagenase (Santyl) 1 applic DAILY TOP Last administered on 04/17/17 09:00; Admin Dose 1 APPLIC; Start 04/09/17 at 14:00 Collagenase (Santyl) 1 applic DAILY PRN TOP WHEN SOILED; Start 04/09/17 at 13: 00 IV Flush (NS 10 ml) 10 ml PRN PRN IV FLUSH LINE; Start 04/10/17 at 16:30 Gentamicin Sulfate (Gentamicin Iv Per Pharmacy) GENTAMICIN PER PHARMACY NOTE XX ; Start 04/11/17 at 10:30 Metoclopramide HCl (Reglan Liq) 5 mg Q8 PO Last administered on 04/17/17 05:03 ; Admin Dose 5 MG; Start 04/12/17 at 08:30 Povidone Iodine 1 applic 1 applic DAILY TOP Last administered on 04/17/17 09:00 ; Admin Dose 1 APPLIC; Start 04/12/17 at 11:30 Meropenem 100 ml @ 200 mls/hr 22 IVPB Last administered on 04/16/17 22:44; Admin Dose 200 MLS/HR; Start 04/15/17 at 22:00 Potassium Chloride (KCl 40 MEQ/250 ML NS) 250 ml @ 62.5 mls/hr ONCE ONCE IVPB Last administered on 04/17/17 10:34; Admin Dose 62.5 MLS/HR; Start 04/17/17 at 08:00; Stop 04/17/17 at 11:59 Miscellaneous Information (*Rx Drug Level Order Reminder*) GENTAMICIN RANDOM LE... ONCE XX ; Start 04/17/17 at 08:00; Stop 04/17/17 at 20:00 Insulin Aspart (Novolog Insulin Pen) NOVOLOG *MODERATE* ALGORI... Q4 SC Last administered on 04/17/17 10:41; Admin Dose 4 UNIT; Start 04/17/17 at 09:00 Insulin Detemir (Levemir) 8 unit BID SC Last administered on 04/17/17 10:42; Admin Dose 8 UNIT; Start 04/17/17 at 21:00 Acetaminophen (Tylenol Liquid) 650 mg Q6 PRN GTB PAIN AND OR ELEVATED TEMP; Start 04/17/17 at 11:30 Assessment/Plan Additional Assessment/Plan IMP: 1. Septic shock with klebsiella bacteremia 2. VDRF 3. ESRD on HD 4. CHF 5. Encephalopathy RECS: 1. Titrate levophed gtt to MAP > 60 2. Continue HD/UF 3. Abx per ID 4. Am labs/CXR 5. Replete K+ 35 min cc time KELLY MALCOLM MD Apr 17, 2017 11:54
--- NOTE | 2017-04-17 13:31 | RADRPT ---
PROCEDURE: XR Chest 1 View. CLINICAL INDICATION: Shortness of breath. TECHNIQUE: AP view of the chest was obtained. COMPARISON: Yesterday. FINDINGS: The heart size is within normal limits. Calcified atherosclerosis is noted in the aorta. Tracheosto my tube is stable and appears in grossly appropriate location. Right-sided dialysis catheter is unc hanged. Left-sided PICC line is stable. Central pulmonary vascular congestion and interstitial pro minence in both lungs is stable. Right upper lobe infiltrates are unchanged. Atelectasis versus mi ld infiltrates are seen at the lung bases. Osseous structures are unchanged. IMPRESSION: Calcified atherosclerosis in the aorta. Stable central pulmonary vascular congestion and interstitial prominence in both lungs. Stable right upper lobe infiltrates. Atelectasis versus mild infiltrates at the lung bases. RPTAT: AA .Kishore Lucero MD, Date Time Electronically viewed and signed by .Kishore Lucero MD, on 04/17/2017 13:30 .P/
--- NOTE | 2017-04-17 14:30 | RADRPT ---
PROCEDURE: Left upper extremity venous ultrasound CLINICAL INDICATION: Left arm pain and swelling. Deep venous thrombosis. TECHNIQUE: Montes scale, color doppler, spectral doppler ultrasound imaging of the venous system of the left upper extremity. Augmentation maneuvers were utilized. COMPARISON: 04/16/2017 FINDINGS: LEFT: Internal jugular vein: Patent. Subclavian vein: Patent. Axillary vein: Patent. Brachial vein: Patent. Basilic vein: Patent. Not well seen in the forearm. Cephalic vein: Patent. Not well seen in the forearm. Radial vein: Patent. Ulnar vein: Patent. IMPRESSION: No evidence of a deep vein thrombosis involving the left upper extremity. RPTAT: AADD .Liban England MD, MD Date Time Electronically viewed and signed by .Liban England MD, on 04/17/2017 14:30 .B/
[2017-04-17 14:50] LABS: Arterial Base Excess 0 mmol/L (-3.0-3); Arterial COHb 0.9 % (0.0-3.0); Arterial Fraction of Oxyhgb 96.7 % (93.0-99.0); Arterial HCO3 23.9 mmol/L (22.0-26.0); Arterial MetHb 0.2 % (0.0-1.5); Arterial Total Hemglobin 12.6 g/dl (12.0-18.0); MODE VENT - AC
[2017-04-17] MEDS: MEROPENEM 500 MG/100 ML (PMX) 100 ML IVPB SCH (21:19)
[2017-04-17] MEDS: ATORVASTATIN 20 MG TAB GTB SCH (21:19)
[2017-04-17] MEDS: traZODone 50 MG TAB PO SCH (21:19)
[2017-04-18] VITALS (64 sets, daily range): BP systolic 82–128; BP diastolic 39–90; PULSE 63–119; RESP 0–23
[2017-04-18] MEDS: INSULIN ASPART [NOVOLOG] 3 ML PEN SC SCH ×6 (01:00→20:46)
[2017-04-18] MEDS: morphine 2 MG INJ IV PRN ×2 (03:19→20:47)
[2017-04-18] MEDS: METOCLOPRAMIDE (1 MG/ML) 10 ML CUP PO SCH ×3 (05:18→20:42)
[2017-04-18] MEDS: LEVOTHYROXINE 125 MCG TAB GTB SCH (05:18)
[2017-04-18] MEDS: LANSOPRAZOLE 30 MG CAP GTB SCH ×2 (05:19→17:35)
[2017-04-18 05:42] LABS: ABNORMAL IP MESSAGE 1; BASOPHILS % 0.1 % (0.0-2.0); HEMATOCRIT 30.9 % (37.0-47.0); HEMOGLOBIN 9.7 g/dl (12.0-16.0); LYMPHOCYTES # 0.6 10^3/ul (0.8-2.9); LYMPHOCYTES % 4.7 % (15.0-51.0); MEAN CORPUSCULAR HEMOGLOBIN 29.1 pg (29.0-33.0); MEAN CORPUSCULAR HGB CONC 31.4 g/dl (32.0-37.0); MEAN CORPUSCULAR VOLUME 92.8 fl (82.0-101.0); MEAN PLATELET VOLUME 11.2 fl (7.4-10.4); MONOCYTE # 0.4 10^3/ul (0.3-0.9); MONOCYTES % 3.2 % (0.0-11.0); NEUTROPHIL # 10.8 10^3/ul (1.6-7.5); NEUTROPHILS % 87.8 % (39.0-77.0); PLATELET COUNT 75 10^3/UL (140-415); RED BLOOD COUNT 3.33 10^6/ul (4.20-5.40); RED CELL DISTRIBUTION WIDTH 19.6 % (11.5-14.5); WHITE BLOOD COUNT 12.3 10^3/ul (4.8-10.8)
[2017-04-18 05:50] LABS: ADD SCAN DIFF NO
--- NOTE | 2017-04-18 07:54 | PN ---
Date/Time of Note Date/Time of Note DATE: 04/18/17 TIME: 07:53 Assessment/Plan Lines/Catheters IV Catheter Type (from [facility]): permacath Urinary Cath still in place: Yes Assessment/Plan Chief Complaint/Hosp Course 1. End-stage renal disease. The patient is receiving daily dialysis for solute clearance and volume removal. Plan for hemodialysis today for 3 hours 2. Anemia of chronic disease. Continue to monitor hemoglobin and hematocrit levels. Status post blood transfusion 3. Mineral bone disorder. Monitor calcium phosphorus levels 4. Hyponatremia secondary to end-stage renal disease. Limit free water. HD 140 sodium bath 5. Hypokalemia, - replete with potassium chloride 6. Septic shock, etiology is multifactorial secondary to urinary tract infection and pneumonia. Continue current broad spectrum antibiotics, continue pressor support. 7. Ventilator dependent respiratory failure. Vent settings have been reviewed. ABG have been reviewed. Continue to monitor. 8. Dysphagia status post percutaneous endoscopic gastrostomy. Continue tube feeding. 9. History of coronary artery disease. 10. Diabetes. Continue Accu-Cheks and sliding scale. 11. Hypothyroidism. Continue Synthroid. 12. History of anal cancer. 13. Acute on chronic encephalopathy, etiology is toxic metabolic. Continue to monitor. 14. Volume overload secondary to congestive heart failure, end-stage renal disease. Continue ultrafiltration with dialysis. Problems: Subjective 24 Hr Interval Summary Free Text/Dictation Patient seen and examined. Currently off pressor support. No other events noted overnight Exam/Review of Systems Vital Signs Vitals Vital Signs Date Time Temp Pulse Resp B/P Pulse Ox O2 Delivery O2 Flow Rate FiO2 04/18/17 06:30 109 16 104/50 95 04/18/17 06:15 Mechanical Ventilator 04/18/17 05:20 30 04/18/17 04:00 98.2 Intake and Output 04/17/17 04/17/17 04/18/17 15:00 23:00 07:00 Intake Total 729.08 ml 478.12 ml 86.84 ml Output Total 0 ml 0 ml Balance 729.08 ml 478.12 ml 86.84 ml Exam HEENT: Head is normocephalic. NECK: Supple. HEART: Regular rate. LUNGS: Show diminished breath sounds at base. ABDOMEN: Soft, nontender to palpation. No rebound or guarding. EXTREMITIES: Negative for clubbing, cyanosis. Positive edema. DERMATOLOGIC: No rashes. MUSCULOSKELETAL: No joint effusions. NEUROLOGIC: No change in exam Results Result Diagram: 04/18/17 0511 04/17/17 0345 Results 24 hrs Laboratory Tests Test 04/17/17 09:40 04/17/17 13:04 04/17/17 17:39 04/17/17 21:17 Bedside Glucose 190 158 97 109 Test 04/18/17 01:00 04/18/17 05:11 04/18/17 05:15 Bedside Glucose 101 117 White Blood Count 12.3 H Red Blood Count 3.33 L Hemoglobin 9.7 L Hematocrit 30.9 L Mean Corpuscular Volume 92.8 Mean Corpuscular Hemoglobin 29.1 Mean Corpuscular Hemoglobin Concent 31.4 L Red Cell Distribution Width 19.6 H Platelet Count 75 L Mean Platelet Volume 11.2 H Neutrophils % 87.8 H Lymphocytes % 4.7 L Monocytes % 3.2 Eosinophils % 0.0 Basophils % 0.1 Nucleated Red Blood Cells % 0.0 Neutrophils # 10.8 H Lymphocytes # 0.6 L Monocytes # 0.4 Eosinophils # 0.0 Basophils # 0.0 Nucleated Red Blood Cells # 0.0 Medications Medications Current Medications Atorvastatin Calcium (Lipitor) 20 mg QHS GTB Last administered on 04/17/17 21: 19; Admin Dose 20 MG; Start 04/08/17 at 21:00 Acetaminophen/ Hydrocodone Bitart ([place] (5/325)) 1 tab Q6H PRN GTB SEVERE PAIN LEVEL 7-10 Last administered on 04/13/17 19:59; Admin Dose 1 TAB; Start at 19:30 Albuterol/ Ipratropium (Duoneb) 3 ml Q2H PRN NEB SHORTNESS OF BREATH; Start at 19:30 Levothyroxine Sodium (Synthroid) 125 mcg DAILY@06 GTB Last administered on 05:18; Admin Dose 125 MCG; Start 04/09/17 at 06:00 Lisinopril (Zestril) 2.5 mg BID GTB ; Start 04/08/17 at 21:00; Status Future Hold Metoprolol Tartrate (Lopressor) 25 mg BID GTB Last administered on 04/08/17 21 :30; Admin Dose 25 MG; Start 04/08/17 at 21:00; Status Future Hold Multivit/Ca Carb/ B Cmplx/FA/Prenat (Shayla-Anuradha) 1 tab DAILY GTB Last administered on 04/17/17 10:34; Admin Dose 1 TAB; Start 04/09/17 at 09:00 Quetiapine Fumarate (Seroquel) 25 mg BID GTB Last administered on 04/17/17 21: 19; Admin Dose 25 MG; Start 04/08/17 at 21:00 Trazodone HCl (Desyrel) 25 mg QHS PO Last administered on 04/17/17 21:19; Admin Dose 25 MG; Start 04/08/17 at 21:00 Acetaminophen (Tylenol Tab) 650 mg Q4H PRN PO PAIN AND OR ELEVATED TEMP; Start 04/08/17 at 19:30 Morphine Sulfate (morphine) 2 mg Q4H PRN IV PAIN LEVEL 8-10 Last administered on 04/18/17 03:19; Admin Dose 2 MG; Start 04/08/17 at 19:30 Miscellaneous Information 1 ea NOTE XX ; Start 04/08/17 at 20:00 Glucose (Glutose) 15 gm Q15M PRN PO DECREASED GLUCOSE; Start 04/08/17 at 20:00 Glucose (Glutose) 22.5 gm Q15M PRN PO DECREASED GLUCOSE; Start 04/08/17 at 20: 00 Dextrose (D50w Syringe) 25 ml Q15M PRN IV DECREASED GLUCOSE; Start 04/08/17 at 20:00 Dextrose (D50w Syringe) 50 ml Q15M PRN IV DECREASED GLUCOSE; Start 04/08/17 at 20:00 Glucagon (Glucagen) 1 mg Q15M PRN IM DECREASED GLUCOSE; Start 04/08/17 at 20:00 Glucose 15 gm 15 gm Q15M PRN BUCCAL DECREASED GLUCOSE; Start 04/08/17 at 20:00 Norepinephrine/ Dextrose (Levophed/D5W) 500 ml @ 1.87 mls/hr TITRATE IV Last administered on 04/15/17 11:25; Admin Dose 9.37 MLS/HR; Start 04/09/17 at 09:00 Collagenase (Santyl) 1 applic DAILY TOP Last administered on 04/17/17 09:00; Admin Dose 1 APPLIC; Start 04/09/17 at 14:00 Collagenase (Santyl) 1 applic DAILY PRN TOP WHEN SOILED; Start 04/09/17 at 13: 00 IV Flush (NS 10 ml) 10 ml PRN PRN IV FLUSH LINE; Start 04/10/17 at 16:30 Gentamicin Sulfate (Gentamicin Iv Per Pharmacy) GENTAMICIN PER PHARMACY NOTE XX ; Start 04/11/17 at 10:30 Metoclopramide HCl (Reglan Liq) 5 mg Q8 PO Last administered on 04/18/17 05:18 ; Admin Dose 5 MG; Start 04/12/17 at 08:30 Povidone Iodine 1 applic 1 applic DAILY TOP Last administered on 04/17/17 09:00 ; Admin Dose 1 APPLIC; Start 04/12/17 at 11:30 Meropenem (Merrem 500 Mg/ 100 ml (Pmx)) 100 ml @ 200 mls/hr 22 IVPB Last administered on 04/17/17 21:19; Admin Dose 200 MLS/HR; Start 04/15/17 at 22:00 Insulin Aspart (Novolog Insulin Pen) NOVOLOG *MODERATE* ALGORI... Q4 SC Last administered on 04/17/17 13:07; Admin Dose 2 UNIT; Start 04/17/17 at 09:00 Insulin Detemir (Levemir) 8 unit BID SC Last administered on 04/17/17 21:21; Admin Dose 8 UNIT; Start 04/17/17 at 21:00 Acetaminophen (Tylenol Liquid) 650 mg Q6 PRN GTB PAIN AND OR ELEVATED TEMP; Start 04/17/17 at 11:30 ANJELICA SANCHEZ DO Apr 18, 2017 07:54
[2017-04-18 08:18] LABS: CALCIUM 7.8 mg/dl (8.4-10.2); CREATININE 2.17 mg/dl (0.44-1.00); PHOSPHORUS 2.7 mg/dl (2.5-4.9); POTASSIUM 4.3 mmol/L (3.5-5.1)
[2017-04-18] MEDS: QUETIAPINE 25 MG TAB GTB SCH ×2 (08:57→20:42)
[2017-04-18] MEDS: MULTIVIT/CA CARB/B CMPLX/FA TAB GTB SCH (08:57)
[2017-04-18] MEDS: INSULIN DETEMIR [LEVEMIR] 3ML CART SC SCH ×2 (09:08→20:44)
[2017-04-18] MEDS: POVIDONE IODINE 10% 28.4 GM OINT TOP SCH (09:13)
[2017-04-18] MEDS: COLLAGENASE 30 GM TUBE TOP SCH (09:14)
[2017-04-18] MEDS: ALBUMIN HUMAN 25% 100 ML IV PRN (09:30)
--- NOTE | 2017-04-18 10:06 | CONS ---
Date/Time of Note Date/Time of Note DATE: 04/18/17 TIME: 10:05 Consult Date/Type/Reason Admit Date/Time Apr 08, 2017 at 16:19 Initial Consult Date 04/09/17 Type of Consultation: Pulmonary ICU Ordering Provider: IVAN MALLOY MD Subjective Patient awake alert comfortable on mechanical ventilation having hemodialysis Sinus tachycardia Objective Vital Signs Date Time Temp Pulse Resp B/P Pulse Ox O2 Delivery O2 Flow Rate FiO2 04/18/17 08:00 104 04/18/17 06:30 16 104/50 95 04/18/17 06:15 Mechanical Ventilator 04/18/17 05:20 30 04/18/17 04:00 98.2 Intake and Output 04/17/17 04/17/17 04/18/17 15:00 23:00 07:00 Intake Total 729.08 ml 478.12 ml 86.84 ml Output Total 0 ml 0 ml Balance 729.08 ml 478.12 ml 86.84 ml Exam PHYSICAL EXAMINATION GENERAL: Elderly lady on mechanical ventilation via tracheostomy appears comfortable at rest VITAL SIGNS: see below. HEENT: Pupils equal, round, and reactive to light. Tracheostomy site clean and intact. CARDIAC: S1, S2, 1/6 systolic ejection murmur CHEST: Diminished air entry bilaterally. ABDOMEN: Mildly distended. Bowel sounds present no guarding or rebound EXTREMITIES: No cyanosis, clubbing edema +1 NEUROLOGIC: Generalized weakness Results/Medications Result Diagram: 04/18/17 0511 04/18/17 0511 Results 24 hrs Laboratory Tests Test 04/17/17 13:04 04/17/17 17:39 04/17/17 21:17 04/18/17 01:00 Bedside Glucose 158 97 109 101 Test 04/18/17 05:11 04/18/17 05:15 04/18/17 08:51 White Blood Count 12.3 H Red Blood Count 3.33 L Hemoglobin 9.7 L Hematocrit 30.9 L Mean Corpuscular Volume 92.8 Mean Corpuscular Hemoglobin 29.1 Mean Corpuscular Hemoglobin Concent 31.4 L Red Cell Distribution Width 19.6 H Platelet Count 75 L Mean Platelet Volume 11.2 H Neutrophils % 87.8 H Lymphocytes % 4.7 L Monocytes % 3.2 Eosinophils % 0.0 Basophils % 0.1 Nucleated Red Blood Cells % 0.0 Neutrophils # 10.8 H Lymphocytes # 0.6 L Monocytes # 0.4 Eosinophils # 0.0 Basophils # 0.0 Nucleated Red Blood Cells # 0.0 Sodium Level 140 Potassium Level 4.3 Chloride Level 99 Carbon Dioxide Level 25 Anion Gap 20 #H Blood Urea Nitrogen 58 H Creatinine 2.17 H Glucose Level 113 # Calcium Level 7.8 L Phosphorus Level 2.7 Magnesium Level 2.0 Bedside Glucose 117 117 Medications Current Medications Atorvastatin Calcium (Lipitor) 20 mg QHS GTB Last administered on 04/17/17 21: 19; Admin Dose 20 MG; Start 04/08/17 at 21:00 Acetaminophen/ Hydrocodone Bitart ([place] (5/325)) 1 tab Q6H PRN GTB SEVERE PAIN LEVEL 7-10 Last administered on 04/13/17 19:59; Admin Dose 1 TAB; Start at 19:30 Albuterol/ Ipratropium (Duoneb) 3 ml Q2H PRN NEB SHORTNESS OF BREATH; Start at 19:30 Levothyroxine Sodium (Synthroid) 125 mcg DAILY@06 GTB Last administered on 05:18; Admin Dose 125 MCG; Start 04/09/17 at 06:00 Lisinopril (Zestril) 2.5 mg BID GTB ; Start 04/08/17 at 21:00; Status Future Hold Metoprolol Tartrate (Lopressor) 25 mg BID GTB Last administered on 04/08/17 21 :30; Admin Dose 25 MG; Start 04/08/17 at 21:00; Status Future Hold Multivit/Ca Carb/ B Cmplx/FA/Prenat (Shayla-Anuradha) 1 tab DAILY GTB Last administered on 04/18/17 08:57; Admin Dose 1 TAB; Start 04/09/17 at 09:00 Quetiapine Fumarate (Seroquel) 25 mg BID GTB Last administered on 04/18/17 08: 57; Admin Dose 25 MG; Start 04/08/17 at 21:00 Trazodone HCl (Desyrel) 25 mg QHS PO Last administered on 04/17/17 21:19; Admin Dose 25 MG; Start 04/08/17 at 21:00 Acetaminophen (Tylenol Tab) 650 mg Q4H PRN PO PAIN AND OR ELEVATED TEMP; Start 04/08/17 at 19:30 Morphine Sulfate (morphine) 2 mg Q4H PRN IV PAIN LEVEL 8-10 Last administered on 04/18/17 03:19; Admin Dose 2 MG; Start 04/08/17 at 19:30 Miscellaneous Information 1 ea NOTE XX ; Start 04/08/17 at 20:00 Glucose (Glutose) 15 gm Q15M PRN PO DECREASED GLUCOSE; Start 04/08/17 at 20:00 Glucose (Glutose) 22.5 gm Q15M PRN PO DECREASED GLUCOSE; Start 04/08/17 at 20: 00 Dextrose (D50w Syringe) 25 ml Q15M PRN IV DECREASED GLUCOSE; Start 04/08/17 at 20:00 Dextrose (D50w Syringe) 50 ml Q15M PRN IV DECREASED GLUCOSE; Start 04/08/17 at 20:00 Glucagon (Glucagen) 1 mg Q15M PRN IM DECREASED GLUCOSE; Start 04/08/17 at 20:00 Glucose 15 gm 15 gm Q15M PRN BUCCAL DECREASED GLUCOSE; Start 04/08/17 at 20:00 Norepinephrine/ Dextrose (Levophed/D5W) 500 ml @ 1.87 mls/hr TITRATE IV Last administered on 04/15/17 11:25; Admin Dose 9.37 MLS/HR; Start 04/09/17 at 09:00 Collagenase (Santyl) 1 applic DAILY TOP Last administered on 04/18/17 09:14; Admin Dose 1 APPLIC; Start 04/09/17 at 14:00 Collagenase (Santyl) 1 applic DAILY PRN TOP WHEN SOILED; Start 04/09/17 at 13: 00 IV Flush (NS 10 ml) 10 ml PRN PRN IV FLUSH LINE; Start 04/10/17 at 16:30 Gentamicin Sulfate (Gentamicin Iv Per Pharmacy) GENTAMICIN PER PHARMACY NOTE XX ; Start 04/11/17 at 10:30 Metoclopramide HCl (Reglan Liq) 5 mg Q8 PO Last administered on 04/18/17 05:18 ; Admin Dose 5 MG; Start 04/12/17 at 08:30 Povidone Iodine 1 applic 1 applic DAILY TOP Last administered on 04/18/17 09:13 ; Admin Dose 1 APPLIC; Start 6/27/17 at 11:30 Meropenem (Merrem 500 Mg/ 100 ml (Pmx)) 100 ml @ 200 mls/hr 22 IVPB Last administered on 04/17/17 21:19; Admin Dose 200 MLS/HR; Start 04/15/17 at 22:00 Insulin Aspart (Novolog Insulin Pen) NOVOLOG *MODERATE* ALGORI... Q4 SC Last administered on 04/17/17 13:07; Admin Dose 2 UNIT; Start 04/17/17 at 09:00 Insulin Detemir (Levemir) 8 unit BID SC Last administered on 04/18/17 09:08; Admin Dose 8 UNIT; Start 04/17/17 at 21:00 Acetaminophen (Tylenol Liquid) 650 mg Q6 PRN GTB PAIN AND OR ELEVATED TEMP; Start 04/17/17 at 11:30 Miscellaneous Information (*Rx Drug Level Order Reminder*) RANDOM GENTAMICIN LE... ONCE XX ; Start 04/18/17 at 08:30; Stop 04/18/17 at 20:00 Assessment/Plan Chief Complaint/Hosp Course IMP: 1. Status post septic shock with klebsiella bacteremia 2. VDRF 3. ESRD on HD 4. CHF with tachycardia 5. Encephalopathy resolving RECS: 1. monitor off vasopressors 2. Continue HD/UF 3. Abx per ID 4. Am labs/CXR 5. Replete K+ 6. Continue tube feeding as tolerated 35 min cc time Problems: STEPHANIE BAIRES [facility], [facility] Apr 18, 2017 10:06
--- NOTE | 2017-04-18 10:24 | CONS ---
Date/Time of Note Date/Time of Note DATE: 04/18/17 TIME: 10:14 Assessment/Plan Assessment/Plan Additional Assessment/Plan - septic shock due to bacteremia (Klebsiella) - bacteremia due to klebsiella, likely from PNA - complicated UTI due to enterobacter - possible HCAP due to klebsiella and pseudomonas, with moderate pleural effusion - acute toxic metabolic encephalopathy - improving - rectal bleeding at [facility] prior to admission, possibly due to radiation proctitis. So far no bleeding after arrival - normocytic anemia - h/o anal CA s/p radiation - diverticulosis without diverticulitis on CT - mild ascites - bloody secretion via trach, possible due to CHF - pulm edema and volume overload - ESRD on HD, via permacath on R chest wall. 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 - ventilator dependent resp failure s/p tracheostomy placement - G tube dependent status - diarrhea; C diff negative - resolved - reported allergy to penicillin and sulfa drugs - reactions unknown recommendations: - pending results: blood cx x2 from HD catheter, TTE - continue meropenem until cultures are finalized - continue gentamicin for pseudomonas, plus double coverage for klebsiella and enterobacter - recommend orthopedic/neurosurgery consult re; potential destructive change at the L4-5 disk space with apparent posterior retropulsion of portion of artificial disk (seen on CT) Consultation Date/Type/Reason Admit Date/Time Apr 08, 2017 at 16:19 Initial Consult Date 04/09/17 Type of Consultation: Pulmonary ICU Referring Provider: IVAN MALLOY MD 24 HR Interval Summary Free Text/Dictation Having HD, Gentamicin level done prior HD, afebrile, off levophed this morning, tolerates TUBE feedings, H/H stable. Dw staff. Constitutional: requiring IVF, requiring O2 Exam/Review of Systems Vital Signs Vitals Vital Signs Date Time Temp Pulse Resp B/P Pulse Ox O2 Delivery O2 Flow Rate FiO2 04/18/17 08:00 104 04/18/17 06:30 16 104/50 95 04/18/17 06:15 Mechanical Ventilator 04/18/17 05:20 30 04/18/17 04:00 98.2 Intake and Output 04/17/17 04/17/17 04/18/17 15:00 23:00 07:00 Intake Total 729.08 ml 478.12 ml 86.84 ml Output Total 0 ml 0 ml Balance 729.08 ml 478.12 ml 86.84 ml Exam Constitutional: alert, well developed Respiratory: clear to auscultation, normal air movement, other (track intact) Cardiovascular: nl pulses, regular rate and rhythm Gastrointestinal: non-tender, soft Extremities: normal pulses Neurological: other Skin: other Results Result Diagram: 04/18/17 0511 04/18/17 0511 Results 24 hrs Laboratory Tests Test 04/17/17 13:04 04/17/17 17:39 04/17/17 21:17 04/18/17 01:00 Bedside Glucose 158 97 109 101 Test 04/18/17 05:11 04/18/17 05:15 04/18/17 08:51 04/18/17 09:00 White Blood Count 12.3 H Red Blood Count 3.33 L Hemoglobin 9.7 L Hematocrit 30.9 L Mean Corpuscular Volume 92.8 Mean Corpuscular Hemoglobin 29.1 Mean Corpuscular Hemoglobin Concent 31.4 L Red Cell Distribution Width 19.6 H Platelet Count 75 L Mean Platelet Volume 11.2 H Neutrophils % 87.8 H Lymphocytes % 4.7 L Monocytes % 3.2 Eosinophils % 0.0 Basophils % 0.1 Nucleated Red Blood Cells % 0.0 Neutrophils # 10.8 H Lymphocytes # 0.6 L Monocytes # 0.4 Eosinophils # 0.0 Basophils # 0.0 Nucleated Red Blood Cells # 0.0 Sodium Level 140 Potassium Level 4.3 Chloride Level 99 Carbon Dioxide Level 25 Anion Gap 20 #H Blood Urea Nitrogen 58 H Creatinine 2.17 H Glucose Level 113 # Calcium Level 7.8 L Phosphorus Level 2.7 Magnesium Level 2.0 Bedside Glucose 117 117 Random Gentamicin Level 4.6 Medications Medications Current Medications Atorvastatin Calcium (Lipitor) 20 mg QHS GTB Last administered on 04/17/17 21: 19; Admin Dose 20 MG; Start 04/08/17 at 21:00 Acetaminophen/ Hydrocodone Bitart ([place] (5/325)) 1 tab Q6H PRN GTB SEVERE PAIN LEVEL 7-10 Last administered on 04/13/17 19:59; Admin Dose 1 TAB; Start at 19:30 Albuterol/ Ipratropium (Duoneb) 3 ml Q2H PRN NEB SHORTNESS OF BREATH; Start at 19:30 Levothyroxine Sodium (Synthroid) 125 mcg DAILY@06 GTB Last administered on 05:18; Admin Dose 125 MCG; Start 04/09/17 at 06:00 Lisinopril (Zestril) 2.5 mg BID GTB ; Start 04/08/17 at 21:00; Status Future Hold Metoprolol Tartrate (Lopressor) 25 mg BID GTB Last administered on 04/08/17 21 :30; Admin Dose 25 MG; Start 04/08/17 at 21:00; Status Future Hold Multivit/Ca Carb/ B Cmplx/FA/Prenat (Shayla-Anuradha) 1 tab DAILY GTB Last administered on 04/18/17 08:57; Admin Dose 1 TAB; Start 04/09/17 at 09:00 Quetiapine Fumarate (Seroquel) 25 mg BID GTB Last administered on 04/18/17 08: 57; Admin Dose 25 MG; Start 04/08/17 at 21:00 Trazodone HCl (Desyrel) 25 mg QHS PO Last administered on 04/17/17 21:19; Admin Dose 25 MG; Start 04/08/17 at 21:00 Acetaminophen (Tylenol Tab) 650 mg Q4H PRN PO PAIN AND OR ELEVATED TEMP; Start 04/08/17 at 19:30 Morphine Sulfate (morphine) 2 mg Q4H PRN IV PAIN LEVEL 8-10 Last administered on 04/18/17 03:19; Admin Dose 2 MG; Start 04/08/17 at 19:30 Miscellaneous Information 1 ea NOTE XX ; Start 04/08/17 at 20:00 Glucose (Glutose) 15 gm Q15M PRN PO DECREASED GLUCOSE; Start 04/08/17 at 20:00 Glucose (Glutose) 22.5 gm Q15M PRN PO DECREASED GLUCOSE; Start 04/08/17 at 20: 00 Dextrose (D50w Syringe) 25 ml Q15M PRN IV DECREASED GLUCOSE; Start 04/08/17 at 20:00 Dextrose (D50w Syringe) 50 ml Q15M PRN IV DECREASED GLUCOSE; Start 04/08/17 at 20:00 Glucagon (Glucagen) 1 mg Q15M PRN IM DECREASED GLUCOSE; Start 04/08/17 at 20:00 Glucose 15 gm 15 gm Q15M PRN BUCCAL DECREASED GLUCOSE; Start 04/08/17 at 20:00 Norepinephrine/ Dextrose (Levophed/D5W) 500 ml @ 1.87 mls/hr TITRATE IV Last administered on 04/15/17 11:25; Admin Dose 9.37 MLS/HR; Start 04/09/17 at 09:00 Collagenase (Santyl) 1 applic DAILY TOP Last administered on 04/18/17 09:14; Admin Dose 1 APPLIC; Start 04/09/17 at 14:00 Collagenase (Santyl) 1 applic DAILY PRN TOP WHEN SOILED; Start 04/09/17 at 13: 00 IV Flush (NS 10 ml) 10 ml PRN PRN IV FLUSH LINE; Start 04/10/17 at 16:30 Gentamicin Sulfate (Gentamicin Iv Per Pharmacy) GENTAMICIN PER PHARMACY NOTE XX ; Start 04/11/17 at 10:30 Metoclopramide HCl (Reglan Liq) 5 mg Q8 PO Last administered on 04/18/17 05:18 ; Admin Dose 5 MG; Start 04/12/17 at 08:30 Povidone Iodine 1 applic 1 applic DAILY TOP Last administered on 04/18/17 09:13 ; Admin Dose 1 APPLIC; Start 04/12/17 at 11:30 Meropenem (Merrem 500 Mg/ 100 ml (Pmx)) 100 ml @ 200 mls/hr 22 IVPB Last administered on 04/17/17 21:19; Admin Dose 200 MLS/HR; Start 04/15/17 at 22:00 Insulin Aspart (Novolog Insulin Pen) NOVOLOG *MODERATE* ALGORI... Q4 SC Last administered on 04/17/17 13:07; Admin Dose 2 UNIT; Start 04/17/17 at 09:00 Insulin Detemir (Levemir) 8 unit BID SC Last administered on 04/18/17 09:08; Admin Dose 8 UNIT; Start 04/17/17 at 21:00 Acetaminophen (Tylenol Liquid) 650 mg Q6 PRN GTB PAIN AND OR ELEVATED TEMP; Start 04/17/17 at 11:30 Miscellaneous Information (*Rx Drug Level Order Reminder*) RANDOM GENTAMICIN LE... ONCE XX ; Start 04/18/17 at 08:30; Stop 04/18/17 at 20:00 VIRGINIA RODARTE Apr 18, 2017 10:24
[2017-04-18] MEDS: GENTAMICIN 80 MG/NS (PMX) 50 ML IVPB SCH (12:37)
--- NOTE | 2017-04-18 13:29 | PN ---
Date/Time of Note Date/Time of Note DATE: 04/18/17 TIME: 13:26 Assessment/Plan VTE Prophylaxis VTE Prophylaxis Intervention: SCD's Lines/Catheters IV Catheter Type (from Nrs): Mid Line Urinary Cath still in place: Yes Reason Cath still needed: urinary retention Assessment/Plan Chief Complaint/Hosp Course Patient's weaned off pressor today in the morning, status post hemodialysis, tachycardic, remains afebrile, continue ICU monitoring. Assessment/Plan 1. Septic shock with Klebsiella bacteremia. Continue antibiotics per ID. Dr. Thurston group is following in infection disease consultation. 2. Acute respiratory failure. Continue ventilatory support. 3. Diabetes mellitus. Continue Levemir and NovoLog. 4. Systolic heart failure. Continue hemodialysis for fluid removal. 5. End-stage renal disease. Continue hemodialysis. 6. Anoxic encephalopathy. No acute issues. 7. Anemia of chronic disease. Continue Epogen. 8. Hypothyroidism. Continue Synthroid. 9. Dyslipidemia. Continue Lipitor. 10. Possible history of psychosis. Continue Seroquel and trazodone. Further recommendations based on clinical course. Plan of care discussed with Dr. Guerrero. Problems: Exam/Review of Systems Vital Signs Vitals Vital Signs Date Time Temp Pulse Resp B/P Pulse Ox O2 Delivery O2 Flow Rate FiO2 04/18/17 12:00 119 04/18/17 11:30 20 100 30 04/18/17 06:30 104/50 04/18/17 06:15 Mechanical Ventilator 04/18/17 04:00 98.2 Intake and Output 04/17/17 04/17/17 04/18/17 15:00 23:00 07:00 Intake Total 729.08 ml 478.12 ml 86.84 ml Output Total 0 ml 0 ml Balance 729.08 ml 478.12 ml 86.84 ml Exam Constitutional: alert, frail Head: normocephalic Neck: other (Tracheostomy), supple Respiratory: diminished breath sounds Cardiovascular: nl pulses Gastrointestinal: non-tender, other (GT), soft Extremities: normal pulses Neurological: nl mental status Results Result Diagram: 04/18/17 0511 04/18/17 0511 Results 24 hrs Laboratory Tests Test 04/17/17 17:39 04/17/17 21:17 04/18/17 01:00 04/18/17 05:11 Bedside Glucose 97 109 101 White Blood Count 12.3 H Red Blood Count 3.33 L Hemoglobin 9.7 L Hematocrit 30.9 L Mean Corpuscular Volume 92.8 Mean Corpuscular Hemoglobin 29.1 Mean Corpuscular Hemoglobin Concent 31.4 L Red Cell Distribution Width 19.6 H Platelet Count 75 L Mean Platelet Volume 11.2 H Neutrophils % 87.8 H Lymphocytes % 4.7 L Monocytes % 3.2 Eosinophils % 0.0 Basophils % 0.1 Nucleated Red Blood Cells % 0.0 Neutrophils # 10.8 H Lymphocytes # 0.6 L Monocytes # 0.4 Eosinophils # 0.0 Basophils # 0.0 Nucleated Red Blood Cells # 0.0 Sodium Level 140 Potassium Level 4.3 Chloride Level 99 Carbon Dioxide Level 25 Anion Gap 20 #H Blood Urea Nitrogen 58 H Creatinine 2.17 H Glucose Level 113 # Calcium Level 7.8 L Phosphorus Level 2.7 Magnesium Level 2.0 Test 04/18/17 05:15 04/18/17 08:51 04/18/17 09:00 Bedside Glucose 117 117 Random Gentamicin Level 4.6 Medications Medications Current Medications Atorvastatin Calcium (Lipitor) 20 mg QHS GTB Last administered on 04/17/17 21: 19; Admin Dose 20 MG; Start 04/08/17 at 21:00 Acetaminophen/ Hydrocodone Bitart ([place] (5/325)) 1 tab Q6H PRN GTB SEVERE PAIN LEVEL 7-10 Last administered on 04/13/17 19:59; Admin Dose 1 TAB; Start at 19:30 Albuterol/ Ipratropium (Duoneb) 3 ml Q2H PRN NEB SHORTNESS OF BREATH; Start at 19:30 Levothyroxine Sodium (Synthroid) 125 mcg DAILY@06 GTB Last administered on 05:18; Admin Dose 125 MCG; Start 04/09/17 at 06:00 Lisinopril (Zestril) 2.5 mg BID GTB ; Start 04/08/17 at 21:00; Status Future Hold Metoprolol Tartrate (Lopressor) 25 mg BID GTB Last administered on 04/08/17 21 :30; Admin Dose 25 MG; Start 04/08/17 at 21:00; Status Future Hold Multivit/Ca Carb/ B Cmplx/FA/Prenat (Shayla-Anuradha) 1 tab DAILY GTB Last administered on 04/18/17 08:57; Admin Dose 1 TAB; Start 04/09/17 at 09:00 Quetiapine Fumarate (Seroquel) 25 mg BID GTB Last administered on 04/18/17 08: 57; Admin Dose 25 MG; Start 04/08/17 at 21:00 Trazodone HCl (Desyrel) 25 mg QHS PO Last administered on 04/17/17 21:19; Admin Dose 25 MG; Start 04/08/17 at 21:00 Acetaminophen (Tylenol Tab) 650 mg Q4H PRN PO PAIN AND OR ELEVATED TEMP; Start 04/08/17 at 19:30 Morphine Sulfate (morphine) 2 mg Q4H PRN IV PAIN LEVEL 8-10 Last administered on 04/18/17 03:19; Admin Dose 2 MG; Start 04/08/17 at 19:30 Miscellaneous Information 1 ea NOTE XX ; Start 04/08/17 at 20:00 Glucose (Glutose) 15 gm Q15M PRN PO DECREASED GLUCOSE; Start 04/08/17 at 20:00 Glucose (Glutose) 22.5 gm Q15M PRN PO DECREASED GLUCOSE; Start 04/08/17 at 20: 00 Dextrose (D50w Syringe) 25 ml Q15M PRN IV DECREASED GLUCOSE; Start 04/08/17 at 20:00 Dextrose (D50w Syringe) 50 ml Q15M PRN IV DECREASED GLUCOSE; Start 04/08/17 at 20:00 Glucagon (Glucagen) 1 mg Q15M PRN IM DECREASED GLUCOSE; Start 04/08/17 at 20:00 Glucose 15 gm 15 gm Q15M PRN BUCCAL DECREASED GLUCOSE; Start 04/08/17 at 20:00 Norepinephrine/ Dextrose (Levophed/D5W) 500 ml @ 1.87 mls/hr TITRATE IV Last administered on 04/15/17 11:25; Admin Dose 9.37 MLS/HR; Start 04/09/17 at 09:00 Collagenase (Santyl) 1 applic DAILY TOP Last administered on 04/18/17 09:14; Admin Dose 1 APPLIC; Start 04/09/17 at 14:00 Collagenase (Santyl) 1 applic DAILY PRN TOP WHEN SOILED; Start 04/09/17 at 13: 00 IV Flush (NS 10 ml) 10 ml PRN PRN IV FLUSH LINE; Start 04/10/17 at 16:30 Gentamicin Sulfate (Gentamicin Iv Per Pharmacy) GENTAMICIN PER PHARMACY NOTE XX ; Start 04/11/17 at 10:30 Metoclopramide HCl (Reglan Liq) 5 mg Q8 PO Last administered on 04/18/17 05:18 ; Admin Dose 5 MG; Start 04/12/17 at 08:30 Povidone Iodine 1 applic 1 applic DAILY TOP Last administered on 04/18/17 09:13 ; Admin Dose 1 APPLIC; Start 04/12/17 at 11:30 Meropenem (Merrem 500 Mg/ 100 ml (Pmx)) 100 ml @ 200 mls/hr 22 IVPB Last administered on 04/17/17 21:19; Admin Dose 200 MLS/HR; Start 04/15/17 at 22:00 Insulin Aspart (Novolog Insulin Pen) NOVOLOG *MODERATE* ALGORI... Q4 SC Last administered on 04/17/17 13:07; Admin Dose 2 UNIT; Start 04/17/17 at 09:00 Insulin Detemir (Levemir) 8 unit BID SC Last administered on 04/18/17 09:08; Admin Dose 8 UNIT; Start 04/17/17 at 21:00 Acetaminophen (Tylenol Liquid) 650 mg Q6 PRN GTB PAIN AND OR ELEVATED TEMP; Start 04/17/17 at 11:30 Miscellaneous Information (*Rx Drug Level Order Reminder*) RANDOM GENTAMICIN LE... ONCE XX ; Start 04/18/17 at 08:30; Stop 04/18/17 at 20:00 HIEU DALY Apr 18, 2017 13:28
[2017-04-18] MEDS: traZODone 50 MG TAB PO SCH (20:42)
[2017-04-18] MEDS: ATORVASTATIN 20 MG TAB GTB SCH (20:42)
[2017-04-18] MEDS: MEROPENEM 500 MG/100 ML (PMX) 100 ML IVPB SCH (20:42)
[2017-04-19] VITALS (37 sets, daily range): BP systolic 87–119; BP diastolic 40–69; PULSE 90–101; RESP 13–22
[2017-04-19] MEDS: INSULIN ASPART [NOVOLOG] 3 ML PEN SC SCH ×6 (01:00→20:44)
[2017-04-19] MEDS: morphine 2 MG INJ IV PRN ×2 (03:42→18:52)
[2017-04-19] MEDS: DEXTROSE 50% 50 ML SYRINGE IV PRN ×2 (03:55→06:01)
[2017-04-19 05:00] LABS: ADD SCAN DIFF NO
[2017-04-19 05:17] LABS: ABNORMAL IP MESSAGE 1; BASOPHILS % 0.1 % (0.0-2.0); HEMATOCRIT 27.8 % (37.0-47.0); HEMOGLOBIN 8.9 g/dl (12.0-16.0); LYMPHOCYTES # 0.6 10^3/ul (0.8-2.9); LYMPHOCYTES % 5.5 % (15.0-51.0); MEAN CORPUSCULAR VOLUME 93.6 fl (82.0-101.0); MEAN PLATELET VOLUME 11.3 fl (7.4-10.4); MONOCYTE # 0.3 10^3/ul (0.3-0.9); MONOCYTES % 2.9 % (0.0-11.0); NEUTROPHIL # 10.4 10^3/ul (1.6-7.5); PLATELET COUNT 73 10^3/UL (140-415); RED BLOOD COUNT 2.97 10^6/ul (4.20-5.40); RED CELL DISTRIBUTION WIDTH 19.3 % (11.5-14.5); WHITE BLOOD COUNT 11.7 10^3/ul (4.8-10.8)
[2017-04-19] MEDS: METOCLOPRAMIDE (1 MG/ML) 10 ML CUP PO SCH ×3 (05:54→22:00)
[2017-04-19] MEDS: LEVOTHYROXINE 125 MCG TAB GTB SCH (05:54)
[2017-04-19 06:09] LABS: CALCIUM 8.3 mg/dl (8.4-10.2); PHOSPHORUS 2.5 mg/dl (2.5-4.9); POTASSIUM 3.4 mmol/L (3.5-5.1)
[2017-04-19] MEDS: LANSOPRAZOLE 30 MG CAP GTB SCH ×2 (07:59→17:45)
--- NOTE | 2017-04-19 08:02 | PN ---
Date/Time of Note Date/Time of Note DATE: 04/19/17 TIME: 08:01 Assessment/Plan Lines/Catheters IV C[facility] Type [facility]from [facility] permacath Urinary Cath still in place: Yes Assessment/Plan Chief Complaint/Hosp Course 1. End-stage renal disease. The patient is receiving daily dialysis for solute clearance and volume removal. - Plan for hemodialysis tomorrow for 3 hours 2. Anemia of chronic disease. Continue to monitor hemoglobin and hematocrit levels. 3. Mineral bone disorder. Monitor calcium phosphorus levels 4. Hyponatremia secondary to end-stage renal disease. Limit free water. HD 140 sodium bath 5. Hypokalemia, - replete with potassium chloride 6. Septic shock, etiology is multifactorial secondary to urinary tract infection and pneumonia. Continue current broad spectrum antibiotics, continue pressor support. 7. Ventilator dependent respiratory failure. Vent settings have been reviewed. ABG have been reviewed. Continue to monitor. 8. Dysphagia status post percutaneous endoscopic gastrostomy. Continue tube feeding. 9. History of coronary artery disease. 10. Diabetes. Continue Accu-Cheks and sliding scale. 11. Hypothyroidism. Continue Synthroid. 12. History of anal cancer. 13. Acute on chronic encephalopathy, etiology is toxic metabolic. Continue to monitor. 14. Volume overload secondary to congestive heart failure, end-stage renal disease. Continue ultrafiltration with dialysis. Problems: Subjective 24 Hr Interval Summary Free Text/Dictation Patient serious but stable condition. Remains off pressor support. Had hemodialysis yesterday tolerated well. Exam/Review of Systems Vital Signs Vitals Vital Signs Date Time Temp Pulse Resp B/P Pulse Ox O2 Delivery O2 Flow Rate FiO2 04/19/17 06:00 101 14 111/51 100 Mechanical Ventilator 04/19/17 05:49 30 04/19/17 04:00 98.0 Intake and Output 04/18/17 04/18/17 04/19/17 15:00 23:00 07:00 Intake Total 900 ml 450 ml 340 ml Output Total 3500 ml 0 ml 0 ml Balance -2600 ml 450 ml 340 ml Exam HEENT: Head is normocephalic. Pupils are reactive to light. NECK: Supple. HEART: Regular rate. LUNGS: Show diminished breath sounds at base. ABDOMEN: Soft, nontender to palpation. No rebound or guarding. EXTREMITIES: Negative for clubbing, cyanosis, no edema. DERMATOLOGIC: No rashes. MUSCULOSKELETAL: No joint effusions. NEUROLOGIC: No change in exam. Results Result Diagram: 04/19/17 0350 04/19/17 0350 Results 24 hrs Laboratory Tests Test 04/18/17 08:51 04/18/17 09:00 04/18/17 13:33 04/18/17 17:36 Bedside Glucose 117 216 115 Random Gentamicin Level 4.6 Test 04/18/17 20:41 04/19/17 00:57 04/19/17 02:01 04/19/17 03:50 Bedside Glucose 99 72 76 White Blood Count 11.7 H Red Blood Count 2.97 L Hemoglobin 8.9 L Hematocrit 27.8 L Mean Corpuscular Volume 93.6 Mean Corpuscular Hemoglobin 30.0 Mean Corpuscular Hemoglobin Concent 32.0 Red Cell Distribution Width 19.3 H Platelet Count 73 L Mean Platelet Volume 11.3 H Neutrophils % 89.0 H Lymphocytes % 5.5 L Monocytes % 2.9 Eosinophils % 0.0 Basophils % 0.1 Nucleated Red Blood Cells % 0.0 Neutrophils # 10.4 H Lymphocytes # 0.6 L Monocytes # 0.3 Eosinophils # 0.0 Basophils # 0.0 Nucleated Red Blood Cells # 0.0 Sodium Level 142 Potassium Level 3.4 L Chloride Level 101 Carbon Dioxide Level 27 Anion Gap 17 H Blood Urea Nitrogen 54 H Creatinine 2.00 H Glucose Level 66 #L Calcium Level 8.3 L Phosphorus Level 2.5 Magnesium Level 2.0 Test 04/19/17 03:51 04/19/17 04:14 04/19/17 05:56 04/19/17 06:15 Bedside Glucose 64 L 104 67 L 128 Test 04/19/17 06:41 Bedside Glucose 107 Medications Medications Current Medications Atorvastatin Calcium (Lipitor) 20 mg QHS GTB Last administered on 04/18/17 20: 42; Admin Dose 20 MG; Start 04/08/17 at 21:00 Acetaminophen/ Hydrocodone Bitart ([place] (5/325)) 1 tab Q6H PRN GTB SEVERE PAIN LEVEL 7-10 Last administered on 04/13/17 19:59; Admin Dose 1 TAB; Start at 19:30 Albuterol/ Ipratropium (Duoneb) 3 ml Q2H PRN NEB SHORTNESS OF BREATH; Start at 19:30 Levothyroxine Sodium (Synthroid) 125 mcg DAILY@06 GTB Last administered on 05:54; Admin Dose 125 MCG; Start 04/09/17 at 06:00 Lisinopril (Zestril) 2.5 mg BID GTB ; Start 04/08/17 at 21:00; Status Future Hold Metoprolol Tartrate (Lopressor) 25 mg BID GTB Last administered on 04/08/17 21 :30; Admin Dose 25 MG; Start 04/08/17 at 21:00; Status Future Hold Multivit/Ca Carb/ B Cmplx/FA/Prenat (Shayla-Anuradha) 1 tab DAILY GTB Last administered on 04/18/17 08:57; Admin Dose 1 TAB; Start 04/09/17 at 09:00 Quetiapine Fumarate (Seroquel) 25 mg BID GTB Last administered on 04/18/17 20: 42; Admin Dose 25 MG; Start 04/08/17 at 21:00 Trazodone HCl (Desyrel) 25 mg QHS PO Last administered on 04/18/17 20:42; Admin Dose 25 MG; Start 04/08/17 at 21:00 Acetaminophen (Tylenol Tab) 650 mg Q4H PRN PO PAIN AND OR ELEVATED TEMP; Start 04/08/17 at 19:30 Morphine Sulfate (morphine) 2 mg Q4H PRN IV PAIN LEVEL 8-10 Last administered on 04/19/17 03:42; Admin Dose 2 MG; Start 04/08/17 at 19:30 Miscellaneous Information 1 ea NOTE XX ; Start 04/08/17 at 20:00 Glucose (Glutose) 15 gm Q15M PRN PO DECREASED GLUCOSE; Start 04/08/17 at 20:00 Glucose (Glutose) 22.5 gm Q15M PRN PO DECREASED GLUCOSE; Start 04/08/17 at 20: 00 Dextrose (D50w Syringe) 25 ml Q15M PRN IV DECREASED GLUCOSE Last administered on 04/19/17 06:01; Admin Dose 25 ML; Start 04/08/17 at 20:00 Dextrose (D50w Syringe) 50 ml Q15M PRN IV DECREASED GLUCOSE; Start 04/08/17 at 20:00 Glucagon (Glucagen) 1 mg Q15M PRN IM DECREASED GLUCOSE; Start 04/08/17 at 20:00 Glucose 15 gm 15 gm Q15M PRN BUCCAL DECREASED GLUCOSE; Start 04/08/17 at 20:00 Norepinephrine/ Dextrose (Levophed/D5W) 500 ml @ 1.87 mls/hr TITRATE IV Last administered on 04/15/17 11:25; Admin Dose 9.37 MLS/HR; Start 04/09/17 at 09:00 Collagenase (Santyl) 1 applic DAILY TOP Last administered on 04/18/17 09:14; Admin Dose 1 APPLIC; Start 04/09/17 at 14:00 Collagenase (Santyl) 1 applic DAILY PRN TOP WHEN SOILED; Start 04/09/17 at 13: 00 IV Flush (NS 10 ml) 10 ml PRN PRN IV FLUSH LINE; Start 04/10/17 at 16:30 Gentamicin Sulfate (Gentamicin Iv Per Pharmacy) GENTAMICIN PER PHARMACY NOTE XX ; Start 04/11/17 at 10:30 Metoclopramide HCl (Reglan Liq) 5 mg Q8 PO Last administered on 04/19/17 05:54 ; Admin Dose 5 MG; Start 04/12/17 at 08:30 Povidone Iodine 1 applic 1 applic DAILY TOP Last administered on 04/18/17 09:13 ; Admin Dose 1 APPLIC; Start 04/12/17 at 11:30 Meropenem (Merrem 500 Mg/ 100 ml (Pmx)) 100 ml @ 200 mls/hr 22 IVPB Last administered on 04/18/17 20:42; Admin Dose 200 MLS/HR; Start 04/15/17 at 22:00 Insulin Aspart (Novolog Insulin Pen) NOVOLOG *MODERATE* ALGORI... Q4 SC Last administered on 04/18/17 13:38; Admin Dose 4 UNIT; Start 04/17/17 at 09:00 Insulin Detemir (Levemir) 8 unit BID SC Last administered on 04/18/17 20:44; Admin Dose 8 UNIT; Start 04/17/17 at 21:00 Acetaminophen (Tylenol Liquid) 650 mg Q6 PRN GTB PAIN AND OR ELEVATED TEMP; Start 04/17/17 at 11:30 ANJELICA SANCHEZ DO Apr 19, 2017 08:02
--- NOTE | 2017-04-19 08:14 | PN ---
Date/Time of Note Date/Time of Note DATE: 04/19/17 TIME: 08:10 Assessment/Plan VTE Prophylaxis VTE Prophylaxis Intervention: other Lines/Catheters IV C[facility] Type (from [facility] permacath Urinary Cath still in place: Yes Assessment/Plan Assessment/Plan 1. Hypokalemia- replace K 1. Septic shock with Klebsiella bacteremia. Continue antibiotics per ID. Dr. Thurston group is following in infection disease consultation. 2. Acute respiratory failure. Continue ventilatory support. 3. Diabetes mellitus. Continue Levemir and NovoLog. 4. Systolic heart failure. Continue hemodialysis for fluid removal. 5. End-stage renal disease. Continue hemodialysis. 6. Anoxic encephalopathy. No acute issues. 7. Anemia of chronic disease. Continue Epogen. 8. Hypothyroidism. Continue Synthroid. 9. Dyslipidemia. Continue Lipitor. 10. Possible history of psychosis. Continue Seroquel and trazodone. Further recommendations based on clinical course. Plan of care discussed with Dr. Guerrero. Subjective 24 Hr Interval Summary Free Text/Dictation Patient's weaned off pressor since yesterday- stable so far. hypokalemia- will replace k, hemodialysis- 04/18, tachycardic, remains afebrile, continue ICU monitoring. dw staff Exam/Review of Systems Vital Signs Vitals Vital Signs Date Time Temp Pulse Resp B/P Pulse Ox O2 Delivery O2 Flow Rate FiO2 04/19/17 06:00 101 14 111/51 100 Mechanical Ventilator 04/19/17 05:49 30 04/19/17 04:00 98.0 Intake and Output 04/18/17 04/18/17 04/19/17 15:00 23:00 07:00 Intake Total 900 ml 450 ml 340 ml Output Total 3500 ml 0 ml 0 ml Balance -2600 ml 450 ml 340 ml Exam Constitutional: alert, well developed Respiratory: clear to auscultation, normal air movement, other (TRACH INTACT) Cardiovascular: nl pulses, other (tachycardia), regular rate and rhythm Gastrointestinal: non-tender, soft Neurological: other (alert, folloes simple commands) Results Result Diagram: 04/19/17 0350 04/19/17 0350 Results 24 hrs Laboratory Tests Test 04/18/17 08:51 04/18/17 09:00 04/18/17 13:33 04/18/17 17:36 Bedside Glucose 117 216 115 Random Gentamicin Level 4.6 Test 04/18/17 20:41 04/19/17 00:57 04/19/17 02:01 04/19/17 03:50 Bedside Glucose 99 72 76 White Blood Count 11.7 H Red Blood Count 2.97 L Hemoglobin 8.9 L Hematocrit 27.8 L Mean Corpuscular Volume 93.6 Mean Corpuscular Hemoglobin 30.0 Mean Corpuscular Hemoglobin Concent 32.0 Red Cell Distribution Width 19.3 H Platelet Count 73 L Mean Platelet Volume 11.3 H Neutrophils % 89.0 H Lymphocytes % 5.5 L Monocytes % 2.9 Eosinophils % 0.0 Basophils % 0.1 Nucleated Red Blood Cells % 0.0 Neutrophils # 10.4 H Lymphocytes # 0.6 L Monocytes # 0.3 Eosinophils # 0.0 Basophils # 0.0 Nucleated Red Blood Cells # 0.0 Sodium Level 142 Potassium Level 3.4 L Chloride Level 101 Carbon Dioxide Level 27 Anion Gap 17 H Blood Urea Nitrogen 54 H Creatinine 2.00 H Glucose Level 66 #L Calcium Level 8.3 L Phosphorus Level 2.5 Magnesium Level 2.0 Test 04/19/17 03:51 04/19/17 04:14 04/19/17 05:56 04/19/17 06:15 Bedside Glucose 64 L 104 67 L 128 Test 04/19/17 06:41 Bedside Glucose 107 Medications Medications Current Medications Atorvastatin Calcium (Lipitor) 20 mg QHS GTB Last administered on 04/18/17 20: 42; Admin Dose 20 MG; Start 04/08/17 at 21:00 Acetaminophen/ Hydrocodone Bitart ([place] (5/325)) 1 tab Q6H PRN GTB SEVERE PAIN LEVEL 7-10 Last administered on 04/13/17 19:59; Admin Dose 1 TAB; Start at 19:30 Albuterol/ Ipratropium (Duoneb) 3 ml Q2H PRN NEB SHORTNESS OF BREATH; Start at 19:30 Levothyroxine Sodium (Synthroid) 125 mcg DAILY@06 GTB Last administered on 05:54; Admin Dose 125 MCG; Start 04/09/17 at 06:00 Lisinopril (Zestril) 2.5 mg BID GTB ; Start 04/08/17 at 21:00; Status Future Hold Metoprolol Tartrate (Lopressor) 25 mg BID GTB Last administered on 04/08/17 21 :30; Admin Dose 25 MG; Start 04/08/17 at 21:00; Status Future Hold Multivit/Ca Carb/ B Cmplx/FA/Prenat (Shayla-Anuradha) 1 tab DAILY GTB Last administered on 04/18/17 08:57; Admin Dose 1 TAB; Start 04/09/17 at 09:00 Quetiapine Fumarate (Seroquel) 25 mg BID GTB Last administered on 04/18/17 20: 42; Admin Dose 25 MG; Start 04/08/17 at 21:00 Trazodone HCl (Desyrel) 25 mg QHS PO Last administered on 04/18/17 20:42; Admin Dose 25 MG; Start 04/08/17 at 21:00 Acetaminophen (Tylenol Tab) 650 mg Q4H PRN PO PAIN AND OR ELEVATED TEMP; Start 04/08/17 at 19:30 Morphine Sulfate (morphine) 2 mg Q4H PRN IV PAIN LEVEL 8-10 Last administered on 04/19/17 03:42; Admin Dose 2 MG; Start 04/08/17 at 19:30 Miscellaneous Information 1 ea NOTE XX ; Start 04/08/17 at 20:00 Glucose (Glutose) 15 gm Q15M PRN PO DECREASED GLUCOSE; Start 04/08/17 at 20:00 Glucose (Glutose) 22.5 gm Q15M PRN PO DECREASED GLUCOSE; Start 04/08/17 at 20: 00 Dextrose (D50w Syringe) 25 ml Q15M PRN IV DECREASED GLUCOSE Last administered on 04/19/17 06:01; Admin Dose 25 ML; Start 04/08/17 at 20:00 Dextrose (D50w Syringe) 50 ml Q15M PRN IV DECREASED GLUCOSE; Start 04/08/17 at 20:00 Glucagon (Glucagen) 1 mg Q15M PRN IM DECREASED GLUCOSE; Start 04/08/17 at 20:00 Glucose 15 gm 15 gm Q15M PRN BUCCAL DECREASED GLUCOSE; Start 04/08/17 at 20:00 Norepinephrine/ Dextrose (Levophed/D5W) 500 ml @ 1.87 mls/hr TITRATE IV Last administered on 04/15/17 11:25; Admin Dose 9.37 MLS/HR; Start 04/09/17 at 09:00 Collagenase (Santyl) 1 applic DAILY TOP Last administered on 04/18/17 09:14; Admin Dose 1 APPLIC; Start 04/09/17 at 14:00 Collagenase (Santyl) 1 applic DAILY PRN TOP WHEN SOILED; Start 04/09/17 at 13: 00 IV Flush (NS 10 ml) 10 ml PRN PRN IV FLUSH LINE; Start 04/10/17 at 16:30 Gentamicin Sulfate (Gentamicin Iv Per Pharmacy) GENTAMICIN PER PHARMACY NOTE XX ; Start 04/11/17 at 10:30 Metoclopramide HCl (Reglan Liq) 5 mg Q8 PO Last administered on 04/19/17 05:54 ; Admin Dose 5 MG; Start 04/12/17 at 08:30 Povidone Iodine 1 applic 1 applic DAILY TOP Last administered on 04/18/17 09:13 ; Admin Dose 1 APPLIC; Start 04/12/17 at 11:30 Meropenem (Merrem 500 Mg/ 100 ml (Pmx)) 100 ml @ 200 mls/hr 22 IVPB Last administered on 04/18/17 20:42; Admin Dose 200 MLS/HR; Start 04/15/17 at 22:00 Insulin Aspart (Novolog Insulin Pen) NOVOLOG *MODERATE* ALGORI... Q4 SC Last administered on 04/18/17 13:38; Admin Dose 4 UNIT; Start 04/17/17 at 09:00 Insulin Detemir (Levemir) 8 unit BID SC Last administered on 04/18/17 20:44; Admin Dose 8 UNIT; Start 04/17/17 at 21:00 Acetaminophen (Tylenol Liquid) 650 mg Q6 PRN GTB PAIN AND OR ELEVATED TEMP; Start 04/17/17 at 11:30 VIRGINIA RODARTE Apr 19, 2017 08:14
[2017-04-19] MEDS: MULTIVIT/CA CARB/B CMPLX/FA TAB GTB SCH (09:02)
[2017-04-19] MEDS: QUETIAPINE 25 MG TAB GTB SCH ×2 (09:02→20:42)
[2017-04-19] MEDS: COLLAGENASE 30 GM TUBE TOP SCH (09:03)
[2017-04-19] MEDS: POVIDONE IODINE 10% 28.4 GM OINT TOP SCH (09:03)
[2017-04-19] MEDS: INSULIN DETEMIR [LEVEMIR] 3ML CART SC SCH ×2 (09:05→20:44)
[2017-04-19] MEDS ORDERED: POTASSIUM CHLORIDE 20 MEQ in SOD CHLORIDE 0.9% 100 ML IVPB ONE (10:00)
--- NOTE | 2017-04-19 11:11 | CONS ---
Date/Time of Note Date/Time of Note DATE: 04/19/17 TIME: 11:10 Consult Date/Type/Reason Admit Date/Time Apr 08, 2017 at 16:19 Initial Consult Date 04/09/17 Type of Consultation: Pulmonary ICU Ordering Provider: IVAN MALLOY MD Subjective Patient remains comfortable awake alert and oriented. Continues mechanical ventilation with no vasopressor support. Objective Vital Signs Date Time Temp Pulse Resp B/P Pulse Ox O2 Delivery O2 Flow Rate FiO2 04/19/17 11:00 97 14 97/46 100 Mechanical Ventilator 04/19/17 08:00 98.3 04/19/17 08:00 30 Intake and Output 04/18/17 04/18/17 04/19/17 15:00 23:00 07:00 Intake Total 900 ml 450 ml 340 ml Output Total 3500 ml 0 ml 0 ml Balance -2600 ml 450 ml 340 ml Exam PHYSICAL EXAMINATION GENERAL: Elderly lady on mechanical ventilation via tracheostomy appears comfortable at rest VITAL SIGNS: see below. HEENT: Pupils equal, round, and reactive to light. Tracheostomy site clean and intact. CARDIAC: S1, S2, 1/6 systolic ejection murmur CHEST: Diminished air entry bilaterally. ABDOMEN: Mildly distended. Bowel sounds present no guarding or rebound EXTREMITIES: No cyanosis, clubbing edema +1 NEUROLOGIC: Generalized weakness Results/Medications Result Diagram: 04/19/17 0350 04/19/17 0350 Results 24 hrs Laboratory Tests Test 04/18/17 13:33 04/18/17 17:36 04/18/17 20:41 04/19/17 00:57 Bedside Glucose 216 115 99 72 Test 04/19/17 02:01 04/19/17 03:50 04/19/17 03:51 04/19/17 04:14 Bedside Glucose 76 64 L 104 White Blood Count 11.7 H Red Blood Count 2.97 L Hemoglobin 8.9 L Hematocrit 27.8 L Mean Corpuscular Volume 93.6 Mean Corpuscular Hemoglobin 30.0 Mean Corpuscular Hemoglobin Concent 32.0 Red Cell Distribution Width 19.3 H Platelet Count 73 L Mean Platelet Volume 11.3 H Neutrophils % 89.0 H Lymphocytes % 5.5 L Monocytes % 2.9 Eosinophils % 0.0 Basophils % 0.1 Nucleated Red Blood Cells % 0.0 Neutrophils # 10.4 H Lymphocytes # 0.6 L Monocytes # 0.3 Eosinophils # 0.0 Basophils # 0.0 Nucleated Red Blood Cells # 0.0 Sodium Level 142 Potassium Level 3.4 L Chloride Level 101 Carbon Dioxide Level 27 Anion Gap 17 H Blood Urea Nitrogen 54 H Creatinine 2.00 H Glucose Level 66 #L Calcium Level 8.3 L Phosphorus Level 2.5 Magnesium Level 2.0 Test 04/19/17 05:56 04/19/17 06:15 04/19/17 06:41 04/19/17 09:00 Bedside Glucose 67 L 128 107 148 Medications Current Medications Atorvastatin Calcium (Lipitor) 20 mg QHS GTB Last administered on 04/18/17 20: 42; Admin Dose 20 MG; Start 04/08/17 at 21:00 Acetaminophen/ Hydrocodone Bitart ([place] (5/325)) 1 tab Q6H PRN GTB SEVERE PAIN LEVEL 7-10 Last administered on 04/13/17 19:59; Admin Dose 1 TAB; Start at 19:30 Albuterol/ Ipratropium (Duoneb) 3 ml Q2H PRN NEB SHORTNESS OF BREATH; Start at 19:30 Levothyroxine Sodium (Synthroid) 125 mcg DAILY@06 GTB Last administered on 05:54; Admin Dose 125 MCG; Start 04/09/17 at 06:00 Lisinopril (Zestril) 2.5 mg BID GTB ; Start 04/08/17 at 21:00; Status Future Hold Metoprolol Tartrate (Lopressor) 25 mg BID GTB Last administered on 04/08/17 21 :30; Admin Dose 25 MG; Start 04/08/17 at 21:00; Status Future Hold Multivit/Ca Carb/ B Cmplx/FA/Prenat (Shayla-Anuradha) 1 tab DAILY GTB Last administered on 04/19/17 09:02; Admin Dose 1 TAB; Start 04/09/17 at 09:00 Quetiapine Fumarate (Seroquel) 25 mg BID GTB Last administered on 04/19/17 09: 02; Admin Dose 25 MG; Start 04/08/17 at 21:00 Trazodone HCl (Desyrel) 25 mg QHS PO Last administered on 04/18/17 20:42; Admin Dose 25 MG; Start 04/08/17 at 21:00 Acetaminophen (Tylenol Tab) 650 mg Q4H PRN PO PAIN AND OR ELEVATED TEMP; Start 04/08/17 at 19:30 Morphine Sulfate (morphine) 2 mg Q4H PRN IV PAIN LEVEL 8-10 Last administered on 04/19/17 03:42; Admin Dose 2 MG; Start 04/08/17 at 19:30 Miscellaneous Information 1 ea NOTE XX ; Start 04/08/17 at 20:00 Glucose (Glutose) 15 gm Q15M PRN PO DECREASED GLUCOSE; Start 04/08/17 at 20:00 Glucose (Glutose) 22.5 gm Q15M PRN PO DECREASED GLUCOSE; Start 04/08/17 at 20: 00 Dextrose (D50w Syringe) 25 ml Q15M PRN IV DECREASED GLUCOSE Last administered on 04/19/17 06:01; Admin Dose 25 ML; Start 04/08/17 at 20:00 Dextrose (D50w Syringe) 50 ml Q15M PRN IV DECREASED GLUCOSE; Start 04/08/17 at 20:00 Glucagon (Glucagen) 1 mg Q15M PRN IM DECREASED GLUCOSE; Start 04/08/17 at 20:00 Glucose 15 gm 15 gm Q15M PRN BUCCAL DECREASED GLUCOSE; Start 04/08/17 at 20:00 Norepinephrine/ Dextrose (Levophed/D5W) 500 ml @ 1.87 mls/hr TITRATE IV Last administered on 04/15/17 11:25; Admin Dose 9.37 MLS/HR; Start 04/09/17 at 09:00 Collagenase (Santyl) 1 applic DAILY TOP Last administered on 04/19/17 09:03; Admin Dose 1 APPLIC; Start 04/09/17 at 14:00 Collagenase (Santyl) 1 applic DAILY PRN TOP WHEN SOILED; Start 04/09/17 at 13: 00 IV Flush (NS 10 ml) 10 ml PRN PRN IV FLUSH LINE; Start 04/10/17 at 16:30 Gentamicin Sulfate (Gentamicin Iv Per Pharmacy) GENTAMICIN PER PHARMACY NOTE XX ; Start 04/11/17 at 10:30 Metoclopramide HCl (Reglan Liq) 5 mg Q8 PO Last administered on 04/19/17 05:54 ; Admin Dose 5 MG; Start 04/12/17 at 08:30 Povidone Iodine 1 applic 1 applic DAILY TOP Last administered on 04/19/17 09:03 ; Admin Dose 1 APPLIC; Start 04/12/17 at 11:30 Meropenem (Merrem 500 Mg/ 100 ml (Pmx)) 100 ml @ 200 mls/hr 22 IVPB Last administered on 04/18/17 20:42; Admin Dose 200 MLS/HR; Start 04/15/17 at 22:00 Insulin Aspart (Novolog Insulin Pen) NOVOLOG *MODERATE* ALGORI... Q4 SC Last administered on 04/19/17 09:09; Admin Dose 2 UNIT; Start 04/17/17 at 09:00 Insulin Detemir (Levemir) 8 unit BID SC Last administered on 04/19/17 09:05; Admin Dose 8 UNIT; Start 04/17/17 at 21:00 Acetaminophen 650 mg 650 mg Q6 PRN GTB PAIN AND OR ELEVATED TEMP; Start at 11:30 Potassium Chloride/Sodium Chloride (KCl/NS) 110 ml @ 55 mls/hr ONCE ONCE IVPB Last administered on 04/19/17 10:43; Admin Dose 55 MLS/HR; Start 04/19/17 at 10 :00; Stop 04/19/17 at 11:59 Assessment/Plan Chief Complaint/Hosp Course IMP: 1. Status post septic shock with klebsiella bacteremia 2. VDRF 3. ESRD on HD 4. CHF with tachycardia 5. Encephalopathy resolving RECS: 1. monitor off vasopressors 2. Continue HD/UF 3. Abx per ID 4. A.m. labs. 5. Replete K+ 6. Continue tube feeding as tolerated Disposition transfer to telemetry. Consider transfer back to alf facility. 35 min cc time Problems: STEPHANIE BAIRES MD, [facility] Apr 19, 2017 11:11
--- NOTE | 2017-04-19 12:14 | CONS ---
Date/Time of Note Date/Time of Note DATE: 04/19/17 TIME: 12:13 Assessment/Plan Assessment/Plan Chief Complaint/Hosp Course IMPRESSION: 1. Sepsis. 2. Coronary artery disease with systolic heart failure. Continue hemodialysis to remove fluids. 3. Coronary artery disease, status post coronary artery bypass graft. 4. Dysphagia on tube feeds 5. Respiratory failure. Continue vent support. Will obtain a pulmonary consult from [facility]. 6. abdominal distension: CT unrevealing, minimal residual. 7. Anal cancer with recent rectal bleed. Status post radiation treatment. Her rectal bleeding is most probably from radiation proctitis 8. History of pulseless electrical activity with possible anoxic encephalopathy. Will continue to monitor. 9. History of GI bleed. 10. Dyslipidemia. 11. Anasarca, and ascites 12. Renal failure on dialysis 13. Encephalopathy, resolved patient is alert awake and oriented 14. Anemia multifactorial, stable now Plan increase lansoprazole to bid dosing Continue antibiotic continue tube feeding through the G-tube at 40 cc/h, which patient is tolerating well More fluid to be removed during dialysis. Dr. Schmitt to resume care of this patient tomorrow. Problems: Consultation Date/Type/Reason Admit Date/Time Apr 08, 2017 at 16:19 Initial Consult Date 04/09/17 Type of Consultation: GI Referring Provider: IVAN MALLOY MD 24 HR Interval Summary Free Text/Dictation No n/v, opens eyes, tolerating tube feeds. Exam/Review of Systems Vital Signs Vitals Vital Signs Date Time Temp Pulse Resp B/P Pulse Ox O2 Delivery O2 Flow Rate FiO2 04/19/17 11:23 96 14 100 30 04/19/17 11:00 97/46 Mechanical Ventilator 04/19/17 08:00 98.3 Intake and Output 04/18/17 04/18/17 04/19/17 15:00 23:00 07:00 Intake Total 900 ml 450 ml 340 ml Output Total 3500 ml 0 ml 0 ml Balance -2600 ml 450 ml 340 ml Exam Psych: nl mood/affect, no complaints Head: atraumatic, normocephalic Eyes: EOMI, nl conjunctiva, nl lids, nl sclera ENMT: mucosa pink and moist, nl external ears & nose, nl lips & teeth, nl nasal mucosa & septum Neck: non-tender, supple Respiratory: clear to auscultation, normal air movement Cardiovascular: nl pulses, regular rate and rhythm Gastrointestinal: bowel sounds, non-tender, other (GT intact), soft Results Result Diagram: 04/19/17 0350 04/19/17 0350 Results 24 hrs Laboratory Tests Test 04/18/17 13:33 04/18/17 17:36 04/18/17 20:41 04/19/17 00:57 Bedside Glucose 216 115 99 72 Test 04/19/17 02:01 04/19/17 03:50 04/19/17 03:51 04/19/17 04:14 Bedside Glucose 76 64 L 104 White Blood Count 11.7 H Red Blood Count 2.97 L Hemoglobin 8.9 L Hematocrit 27.8 L Mean Corpuscular Volume 93.6 Mean Corpuscular Hemoglobin 30.0 Mean Corpuscular Hemoglobin Concent 32.0 Red Cell Distribution Width 19.3 H Platelet Count 73 L Mean Platelet Volume 11.3 H Neutrophils % 89.0 H Lymphocytes % 5.5 L Monocytes % 2.9 Eosinophils % 0.0 Basophils % 0.1 Nucleated Red Blood Cells % 0.0 Neutrophils # 10.4 H Lymphocytes # 0.6 L Monocytes # 0.3 Eosinophils # 0.0 Basophils # 0.0 Nucleated Red Blood Cells # 0.0 Sodium Level 142 Potassium Level 3.4 L Chloride Level 101 Carbon Dioxide Level 27 Anion Gap 17 H Blood Urea Nitrogen 54 H Creatinine 2.00 H Glucose Level 66 #L Calcium Level 8.3 L Phosphorus Level 2.5 Magnesium Level 2.0 Test 04/19/17 05:56 04/19/17 06:15 04/19/17 06:41 04/19/17 09:00 Bedside Glucose 67 L 128 107 148 Medications Medications Current Medications Atorvastatin Calcium (Lipitor) 20 mg QHS GTB Last administered on 04/18/17 20: 42; Admin Dose 20 MG; Start 04/08/17 at 21:00 Acetaminophen/ Hydrocodone Bitart ([place] (5/325)) 1 tab Q6H PRN GTB SEVERE PAIN LEVEL 7-10 Last administered on 04/13/17 19:59; Admin Dose 1 TAB; Start at 19:30 Albuterol/ Ipratropium (Duoneb) 3 ml Q2H PRN NEB SHORTNESS OF BREATH; Start at 19:30 Levothyroxine Sodium (Synthroid) 125 mcg DAILY@06 GTB Last administered on 05:54; Admin Dose 125 MCG; Start 04/09/17 at 06:00 Lisinopril (Zestril) 2.5 mg BID GTB ; Start 04/08/17 at 21:00; Status Future Hold Metoprolol Tartrate (Lopressor) 25 mg BID GTB Last administered on 04/08/17 21 :30; Admin Dose 25 MG; Start 04/08/17 at 21:00; Status Future Hold Multivit/Ca Carb/ B Cmplx/FA/Prenat (Shayla-Anuradha) 1 tab DAILY GTB Last administered on 04/19/17 09:02; Admin Dose 1 TAB; Start 04/09/17 at 09:00 Quetiapine Fumarate (Seroquel) 25 mg BID GTB Last administered on 04/19/17 09: 02; Admin Dose 25 MG; Start 04/08/17 at 21:00 Trazodone HCl (Desyrel) 25 mg QHS PO Last administered on 04/18/17 20:42; Admin Dose 25 MG; Start 04/08/17 at 21:00 Acetaminophen (Tylenol Tab) 650 mg Q4H PRN PO PAIN AND OR ELEVATED TEMP; Start 04/08/17 at 19:30 Morphine Sulfate (morphine) 2 mg Q4H PRN IV PAIN LEVEL 8-10 Last administered on 04/19/17 03:42; Admin Dose 2 MG; Start 04/08/17 at 19:30 Miscellaneous Information 1 ea NOTE XX ; Start 04/08/17 at 20:00 Glucose (Glutose) 15 gm Q15M PRN PO DECREASED GLUCOSE; Start 04/08/17 at 20:00 Glucose (Glutose) 22.5 gm Q15M PRN PO DECREASED GLUCOSE; Start 04/08/17 at 20: 00 Dextrose (D50w Syringe) 25 ml Q15M PRN IV DECREASED GLUCOSE Last administered on 04/19/17 06:01; Admin Dose 25 ML; Start 04/08/17 at 20:00 Dextrose (D50w Syringe) 50 ml Q15M PRN IV DECREASED GLUCOSE; Start 04/08/17 at 20:00 Glucagon (Glucagen) 1 mg Q15M PRN IM DECREASED GLUCOSE; Start 04/08/17 at 20:00 Glucose (Glutose) 15 gm Q15M PRN BUCCAL DECREASED GLUCOSE; Start 04/08/17 at 20 :00 Collagenase (Santyl) 1 applic DAILY TOP Last administered on 04/19/17 09:03; Admin Dose 1 APPLIC; Start 04/09/17 at 14:00 Collagenase (Santyl) 1 applic DAILY PRN TOP WHEN SOILED; Start 04/09/17 at 13: 00 IV Flush (NS 10 ml) 10 ml PRN PRN IV FLUSH LINE; Start 04/10/17 at 16:30 Gentamicin Sulfate (Gentamicin Iv Per Pharmacy) GENTAMICIN PER PHARMACY NOTE XX ; Start 04/11/17 at 10:30 Metoclopramide HCl (Reglan Liq) 5 mg Q8 PO Last administered on 04/19/17 05:54 ; Admin Dose 5 MG; Start 04/12/17 at 08:30 Povidone Iodine 1 applic 1 applic DAILY TOP Last administered on 04/19/17 09:03 ; Admin Dose 1 APPLIC; Start 04/12/17 at 11:30 Meropenem (Merrem 500 Mg/ 100 ml (Pmx)) 100 ml @ 200 mls/hr 22 IVPB Last administered on 04/18/17 20:42; Admin Dose 200 MLS/HR; Start 04/15/17 at 22:00 Insulin Aspart (Novolog Insulin Pen) NOVOLOG *MODERATE* ALGORI... Q4 SC Last administered on 04/19/17 09:09; Admin Dose 2 UNIT; Start 04/17/17 at 09:00 Insulin Detemir (Levemir) 8 unit BID SC Last administered on 04/19/17 09:05; Admin Dose 8 UNIT; Start 04/17/17 at 21:00 Acetaminophen (Tylenol Liquid) 650 mg Q6 PRN GTB PAIN AND OR ELEVATED TEMP; Start 04/17/17 at 11:30 KIM RANDOLPH MD Apr 19, 2017 12:14
--- NOTE | 2017-04-19 13:58 | CONS ---
Date/Time of Note Date/Time of Note DATE: 04/19/17 TIME: 13:57 Assessment/Plan Assessment/Plan Chief Complaint/Hosp Course - septic shock due to bacteremia (Klebsiella) - bacteremia due to klebsiella, likely from PNA - complicated UTI due to enterobacter - possible HCAP due to klebsiella and pseudomonas, with moderate pleural effusion - acute toxic metabolic encephalopathy - improving - rectal bleeding at [facility] prior to admission, possibly due to radiation proctitis. So far no bleeding after arrival - normocytic anemia - h/o anal CA s/p radiation - diverticulosis without diverticulitis on CT - mild ascites - bloody secretion via trach, possible due to CHF - pulm edema and volume overload - ESRD on HD, via permacath on R chest wall. 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 - ventilator dependent resp failure s/p tracheostomy placement - G tube dependent status - diarrhea; C diff negative - resolved - reported allergy to penicillin and sulfa drugs - reactions unknown recommendations: - continue gentamicin for pseudomonas, plus - recommend orthopedic/neurosurgery consult re; potential destructive change at the L4-5 disk space with apparent posterior retropulsion of portion of artificial disk (seen on CT) Problems: Consultation Date/Type/Reason Admit Date/Time Apr 08, 2017 at 16:19 Initial Consult Date 04/09/17 Type of Consultation: id Referring Provider: IVAN MALLOY MD Exam/Review of Systems Vital Signs Vitals Vital Signs Date Time Temp Pulse Resp B/P Pulse Ox O2 Delivery O2 Flow Rate FiO2 04/19/17 11:23 96 14 100 30 04/19/17 11:00 97/46 Mechanical Ventilator 04/19/17 08:00 98.3 Intake and Output 04/18/17 04/18/17 04/19/17 15:00 23:00 07:00 Intake Total 900 ml 450 ml 340 ml Output Total 3500 ml 0 ml 0 ml Balance -2600 ml 450 ml 340 ml Results Result Diagram: 04/19/17 0350 04/19/17 0350 Results 24 hrs Laboratory Tests Test 04/18/17 17:36 04/18/17 20:41 04/19/17 00:57 04/19/17 02:01 Bedside Glucose 115 99 72 76 Test 04/19/17 03:50 04/19/17 03:51 04/19/17 04:14 04/19/17 05:56 White Blood Count 11.7 H Red Blood Count 2.97 L Hemoglobin 8.9 L Hematocrit 27.8 L Mean Corpuscular Volume 93.6 Mean Corpuscular Hemoglobin 30.0 Mean Corpuscular Hemoglobin Concent 32.0 Red Cell Distribution Width 19.3 H Platelet Count 73 L Mean Platelet Volume 11.3 H Neutrophils % 89.0 H Lymphocytes % 5.5 L Monocytes % 2.9 Eosinophils % 0.0 Basophils % 0.1 Nucleated Red Blood Cells % 0.0 Neutrophils # 10.4 H Lymphocytes # 0.6 L Monocytes # 0.3 Eosinophils # 0.0 Basophils # 0.0 Nucleated Red Blood Cells # 0.0 Sodium Level 142 Potassium Level 3.4 L Chloride Level 101 Carbon Dioxide Level 27 Anion Gap 17 H Blood Urea Nitrogen 54 H Creatinine 2.00 H Glucose Level 66 #L Calcium Level 8.3 L Phosphorus Level 2.5 Magnesium Level 2.0 Bedside Glucose 64 L 104 67 L Test 04/19/17 06:15 04/19/17 06:41 04/19/17 09:00 04/19/17 13:02 Bedside Glucose 128 107 148 189 Medications Medications Current Medications Atorvastatin Calcium (Lipitor) 20 mg QHS GTB Last administered on 04/18/17 20: 42; Admin Dose 20 MG; Start 04/08/17 at 21:00 Acetaminophen/ Hydrocodone Bitart ([place] (5/325)) 1 tab Q6H PRN GTB SEVERE PAIN LEVEL 7-10 Last administered on 04/13/17 19:59; Admin Dose 1 TAB; Start at 19:30 Albuterol/ Ipratropium (Duoneb) 3 ml Q2H PRN NEB SHORTNESS OF BREATH; Start at 19:30 Levothyroxine Sodium (Synthroid) 125 mcg DAILY@06 GTB Last administered on 05:54; Admin Dose 125 MCG; Start 04/09/17 at 06:00 Lisinopril (Zestril) 2.5 mg BID GTB ; Start 04/08/17 at 21:00; Status Future Hold Metoprolol Tartrate (Lopressor) 25 mg BID GTB Last administered on 04/08/17 21 :30; Admin Dose 25 MG; Start 04/08/17 at 21:00; Status Future Hold Multivit/Ca Carb/ B Cmplx/FA/Prenat (Shayla-Anuradha) 1 tab DAILY GTB Last administered on 04/19/17 09:02; Admin Dose 1 TAB; Start 04/09/17 at 09:00 Quetiapine Fumarate (Seroquel) 25 mg BID GTB Last administered on 04/19/17 09: 02; Admin Dose 25 MG; Start 04/08/17 at 21:00 Trazodone HCl (Desyrel) 25 mg QHS PO Last administered on 04/18/17 20:42; Admin Dose 25 MG; Start 04/08/17 at 21:00 Acetaminophen (Tylenol Tab) 650 mg Q4H PRN PO PAIN AND OR ELEVATED TEMP; Start 04/08/17 at 19:30 Morphine Sulfate (morphine) 2 mg Q4H PRN IV PAIN LEVEL 8-10 Last administered on 04/19/17 03:42; Admin Dose 2 MG; Start 04/08/17 at 19:30 Miscellaneous Information 1 ea NOTE XX ; Start 04/08/17 at 20:00 Glucose (Glutose) 15 gm Q15M PRN PO DECREASED GLUCOSE; Start 04/08/17 at 20:00 Glucose (Glutose) 22.5 gm Q15M PRN PO DECREASED GLUCOSE; Start 04/08/17 at 20: 00 Dextrose (D50w Syringe) 25 ml Q15M PRN IV DECREASED GLUCOSE Last administered on 04/19/17 06:01; Admin Dose 25 ML; Start 04/08/17 at 20:00 Dextrose (D50w Syringe) 50 ml Q15M PRN IV DECREASED GLUCOSE; Start 04/08/17 at 20:00 Glucagon (Glucagen) 1 mg Q15M PRN IM DECREASED GLUCOSE; Start 04/08/17 at 20:00 Glucose (Glutose) 15 gm Q15M PRN BUCCAL DECREASED GLUCOSE; Start 04/08/17 at 20 :00 Collagenase (Santyl) 1 applic DAILY TOP Last administered on 04/19/17 09:03; Admin Dose 1 APPLIC; Start 04/09/17 at 14:00 Collagenase (Santyl) 1 applic DAILY PRN TOP WHEN SOILED; Start 04/09/17 at 13: 00 IV Flush (NS 10 ml) 10 ml PRN PRN IV FLUSH LINE; Start 04/10/17 at 16:30 Gentamicin Sulfate (Gentamicin Iv Per Pharmacy) GENTAMICIN PER PHARMACY NOTE XX ; Start 04/11/17 at 10:30 Metoclopramide HCl (Reglan Liq) 5 mg Q8 PO Last administered on 04/19/17 05:54 ; Admin Dose 5 MG; Start 04/12/17 at 08:30 Povidone Iodine 1 applic 1 applic DAILY TOP Last administered on 04/19/17 09:03 ; Admin Dose 1 APPLIC; Start 04/12/17 at 11:30 Meropenem (Merrem 500 Mg/ 100 ml (Pmx)) 100 ml @ 200 mls/hr 22 IVPB Last administered on 04/18/17 20:42; Admin Dose 200 MLS/HR; Start 04/15/17 at 22:00 Insulin Aspart (Novolog Insulin Pen) NOVOLOG *MODERATE* ALGORI... Q4 SC Last administered on 04/19/17 13:05; Admin Dose 4 UNIT; Start 04/17/17 at 09:00 Insulin Detemir (Levemir) 8 unit BID SC Last administered on 04/19/17 09:05; Admin Dose 8 UNIT; Start 04/17/17 at 21:00 Acetaminophen (Tylenol Liquid) 650 mg Q6 PRN GTB PAIN AND OR ELEVATED TEMP; Start 04/17/17 at 11:30 PATY BOND MD Apr 19, 2017 13:58
[2017-04-19] MEDS: ATORVASTATIN 20 MG TAB GTB SCH (20:42)
[2017-04-19] MEDS: traZODone 50 MG TAB PO SCH (20:42)
[2017-04-20] VITALS (31 sets, daily range): BP systolic 89–150; BP diastolic 44–74; PULSE 86–108; RESP 14–25
[2017-04-20] MEDS: INSULIN ASPART [NOVOLOG] 3 ML PEN SC SCH ×6 (00:29→21:00)
[2017-04-20] MEDS: METOCLOPRAMIDE (1 MG/ML) 10 ML CUP PO SCH ×3 (05:02→21:55)
[2017-04-20] MEDS: LEVOTHYROXINE 125 MCG TAB GTB SCH (05:02)
[2017-04-20] MEDS: LANSOPRAZOLE 30 MG CAP GTB SCH ×2 (05:56→17:59)
[2017-04-20 06:07] LABS: ADD SCAN DIFF NO
[2017-04-20 06:16] LABS: ABNORMAL IP MESSAGE 1; BASOPHILS % 0.1 % (0.0-2.0); HEMATOCRIT 27.8 % (37.0-47.0); HEMOGLOBIN 8.8 g/dl (12.0-16.0); LYMPHOCYTES # 0.6 10^3/ul (0.8-2.9); LYMPHOCYTES % 5.8 % (15.0-51.0); MEAN CORPUSCULAR HEMOGLOBIN 29.6 pg (29.0-33.0); MEAN CORPUSCULAR HGB CONC 31.7 g/dl (32.0-37.0); MEAN CORPUSCULAR VOLUME 93.6 fl (82.0-101.0); MEAN PLATELET VOLUME 12.1 fl (7.4-10.4); MONOCYTE # 0.4 10^3/ul (0.3-0.9); MONOCYTES % 3.5 % (0.0-11.0); NEUTROPHIL # 8.8 10^3/ul (1.6-7.5); NEUTROPHILS % 87.8 % (39.0-77.0); RED BLOOD COUNT 2.97 10^6/ul (4.20-5.40); RED CELL DISTRIBUTION WIDTH 19.6 % (11.5-14.5)
[2017-04-20 06:32] LABS: PLATELET COUNT 79 10^3/UL (140-415)
[2017-04-20 06:47] LABS: CALCIUM 8.1 mg/dl (8.4-10.2); CREATININE 2.46 mg/dl (0.44-1.00); MAGNESIUM 2.1 mg/dl (1.7-2.5); PHOSPHORUS 3.1 mg/dl (2.5-4.9); POTASSIUM 4.1 mmol/L (3.5-5.1)
--- NOTE | 2017-04-20 08:11 | PN ---
Date/Time of Note Date/Time of Note DATE: 04/20/17 TIME: 08:06 Assessment/Plan Lines/Catheters IV Catheter Type (from [facility]): PERMACATH Urinary Cath still in place: Yes Assessment/Plan Chief Complaint/Hosp Course 1. End-stage renal disease. The patient is receiving daily dialysis for solute clearance and volume removal. - Plan for hemodialysis today for 3 hours 2. Anemia of chronic disease. Continue to monitor hemoglobin and hematocrit levels. 3. Mineral bone disorder. Monitor calcium phosphorus levels 4. Hyponatremia secondary to end-stage renal disease. Limit free water. HD 140 sodium bath 5. Hypokalemia, - replete with potassium chloride 6. Septic shock, etiology is multifactorial secondary to urinary tract infection and pneumonia. Continue current broad spectrum antibiotics, continue pressor support. 7. Ventilator dependent respiratory failure. Vent settings have been reviewed. ABG have been reviewed. Continue to monitor. 8. Dysphagia status post percutaneous endoscopic gastrostomy. Continue tube feeding. 9. History of coronary artery disease. 10. Diabetes. Continue Accu-Cheks and sliding scale. 11. Hypothyroidism. Continue Synthroid. 12. History of anal cancer. 13. Acute on chronic encephalopathy, etiology is toxic metabolic. Continue to monitor. 14. Volume overload secondary to congestive heart failure, end-stage renal disease. Continue ultrafiltration with dialysis. Problems: Subjective 24 Hr Interval Summary Free Text/Dictation Patient transferred from ICU to telemetry. Stable . no acute events overnight Exam/Review of Systems Vital Signs Vitals Vital Signs Date Time Temp Pulse Resp B/P Pulse Ox O2 Delivery O2 Flow Rate FiO2 04/20/17 08:01 98.2 96 18 99/51 98 04/20/17 07:32 30 04/19/17 18:38 Mechanical Ventilator Intake and Output 04/19/17 04/19/17 04/20/17 15:00 23:00 07:00 Intake Total 625 ml 150 ml 540 ml Output Total 10 ml 5 ml 25 ml Balance 615 ml 145 ml 515 ml Exam HEENT: Head is normocephalic. Pupils are reactive to light. NECK: Supple. HEART: Regular rate. LUNGS: Show diminished breath sounds at base. ABDOMEN: Soft, nontender to palpation. No rebound or guarding. EXTREMITIES: Negative for clubbing, cyanosis,. Positive edema. DERMATOLOGIC: No rashes. MUSCULOSKELETAL: No joint effusions. NEUROLOGIC: No change in exam. Results Result Diagram: 04/20/17 0535 04/20/17 0535 Results 24 hrs Laboratory Tests Test 04/19/17 09:00 04/19/17 13:02 04/19/17 17:41 04/19/17 20:41 Bedside Glucose 148 189 309 H 211 Test 04/20/17 00:24 04/20/17 05:01 04/20/17 05:35 Bedside Glucose 196 157 White Blood Count 10.0 Red Blood Count 2.97 L Hemoglobin 8.8 L Hematocrit 27.8 L Mean Corpuscular Volume 93.6 Mean Corpuscular Hemoglobin 29.6 Mean Corpuscular Hemoglobin Concent 31.7 L Red Cell Distribution Width 19.6 H Platelet Count 79 L Mean Platelet Volume 12.1 H Neutrophils % 87.8 H Lymphocytes % 5.8 L Monocytes % 3.5 Eosinophils % 0.0 Basophils % 0.1 Nucleated Red Blood Cells % 0.0 Neutrophils # 8.8 H Lymphocytes # 0.6 L Monocytes # 0.4 Eosinophils # 0.0 Basophils # 0.0 Nucleated Red Blood Cells # 0.0 Sodium Level 141 Potassium Level 4.1 Chloride Level 100 Carbon Dioxide Level 25 Anion Gap 20 H Blood Urea Nitrogen 75 H Creatinine 2.46 H Glucose Level 170 # Calcium Level 8.1 L Phosphorus Level 3.1 Magnesium Level 2.1 Medications Medications Current Medications Atorvastatin Calcium (Lipitor) 20 mg QHS GTB Last administered on 04/19/17 20: 42; Admin Dose 20 MG; Start 04/08/17 at 21:00 Acetaminophen/ Hydrocodone Bitart ([place] (5/325)) 1 tab Q6H PRN GTB SEVERE PAIN LEVEL 7-10 Last administered on 04/13/17 19:59; Admin Dose 1 TAB; Start at 19:30 Albuterol/ Ipratropium (Duoneb) 3 ml Q2H PRN NEB SHORTNESS OF BREATH; Start at 19:30 Levothyroxine Sodium (Synthroid) 125 mcg DAILY@06 GTB Last administered on 05:02; Admin Dose 125 MCG; Start 04/09/17 at 06:00 Lisinopril (Zestril) 2.5 mg BID GTB ; Start 04/08/17 at 21:00; Status Future Hold Metoprolol Tartrate (Lopressor) 25 mg BID GTB Last administered on 04/08/17 21 :30; Admin Dose 25 MG; Start 04/08/17 at 21:00; Status Future Hold Multivit/Ca Carb/ B Cmplx/FA/Prenat (Shayla-Anuradha) 1 tab DAILY GTB Last administered on 04/19/17 09:02; Admin Dose 1 TAB; Start 04/09/17 at 09:00 Quetiapine Fumarate (Seroquel) 25 mg BID GTB Last administered on 04/19/17 20: 42; Admin Dose 25 MG; Start 04/08/17 at 21:00 Trazodone HCl (Desyrel) 25 mg QHS PO Last administered on 04/19/17 20:42; Admin Dose 25 MG; Start 04/08/17 at 21:00 Acetaminophen (Tylenol Tab) 650 mg Q4H PRN PO PAIN AND OR ELEVATED TEMP; Start 04/08/17 at 19:30 Morphine Sulfate (morphine) 2 mg Q4H PRN IV PAIN LEVEL 8-10 Last administered on 04/19/17 18:52; Admin Dose 2 MG; Start 04/08/17 at 19:30 Miscellaneous Information 1 ea NOTE XX ; Start 04/08/17 at 20:00 Glucose (Glutose) 15 gm Q15M PRN PO DECREASED GLUCOSE; Start 04/08/17 at 20:00 Glucose (Glutose) 22.5 gm Q15M PRN PO DECREASED GLUCOSE; Start 04/08/17 at 20: 00 Dextrose (D50w Syringe) 25 ml Q15M PRN IV DECREASED GLUCOSE Last administered on 04/19/17 06:01; Admin Dose 25 ML; Start 04/08/17 at 20:00 Dextrose (D50w Syringe) 50 ml Q15M PRN IV DECREASED GLUCOSE; Start 04/08/17 at 20:00 Glucagon (Glucagen) 1 mg Q15M PRN IM DECREASED GLUCOSE; Start 04/08/17 at 20:00 Glucose (Glutose) 15 gm Q15M PRN BUCCAL DECREASED GLUCOSE; Start 04/08/17 at 20 :00 Collagenase (Santyl) 1 applic DAILY TOP Last administered on 04/19/17 09:03; Admin Dose 1 APPLIC; Start 04/09/17 at 14:00 Collagenase (Santyl) 1 applic DAILY PRN TOP WHEN SOILED; Start 04/09/17 at 13: 00 IV Flush (NS 10 ml) 10 ml PRN PRN IV FLUSH LINE; Start 04/10/17 at 16:30 Gentamicin Sulfate (Gentamicin Iv Per Pharmacy) GENTAMICIN PER PHARMACY NOTE XX ; Start 04/11/17 at 10:30 Metoclopramide HCl (Reglan Liq) 5 mg Q8 PO Last administered on 04/20/17 05:02 ; Admin Dose 5 MG; Start 04/12/17 at 08:30 Povidone Iodine (Povidone-Iodine) 1 applic DAILY TOP Last administered on 09:03; Admin Dose 1 APPLIC; Start 04/12/17 at 11:30 Insulin Aspart (Novolog Insulin Pen) NOVOLOG *MODERATE* ALGORI... Q4 SC Last administered on 04/20/17 05:04; Admin Dose 2 UNIT; Start 04/17/17 at 09:00 Insulin Detemir (Levemir) 8 unit BID SC Last administered on 04/19/17 20:44; Admin Dose 8 UNIT; Start 04/17/17 at 21:00 Acetaminophen (Tylenol Liquid) 650 mg Q6 PRN GTB PAIN AND OR ELEVATED TEMP; Start 04/17/17 at 11:30 ANJELICA SANCHEZ DO Apr 20, 2017 08:11
[2017-04-20 09:22] LABS: ALBUMIN 2.4 g/dl (3.3-4.9); TOTAL PROTEIN 5.7 g/dl (6.1-8.1)
[2017-04-20] MEDS: POVIDONE IODINE 10% 28.4 GM OINT TOP SCH (09:39)
[2017-04-20] MEDS: COLLAGENASE 30 GM TUBE TOP SCH (09:40)
[2017-04-20] MEDS: QUETIAPINE 25 MG TAB GTB SCH ×2 (09:40→21:46)
[2017-04-20] MEDS: MULTIVIT/CA CARB/B CMPLX/FA TAB GTB SCH (09:40)
[2017-04-20] MEDS: INSULIN DETEMIR [LEVEMIR] 3ML CART SC SCH ×2 (09:43→21:50)
[2017-04-20] MEDS: ALBUMIN HUMAN 25% 100 ML IV PRN (12:26)
--- NOTE | 2017-04-20 12:46 | PN ---
Date/Time of Note Date/Time of Note DATE: 04/20/17 TIME: 12:45 Assessment/Plan VTE Prophylaxis VTE Prophylaxis Intervention: SCD's Lines/Catheters [facility] PERMACATH Urinary Cath still in place: Yes Reason Cath still needed: urinary retention Assessment/Plan Chief Complaint/Hosp Course Patient is undergoing hemodialysis, borderline blood pressure, remains afebrile , comfortable on ventilatory support. Assessment/Plan 1. Septic shock with Klebsiella bacteremia. Continue antibiotics per ID. Dr. Thurston group is following in infection disease consultation. 2. Acute respiratory failure. Continue ventilatory support. 3. Diabetes mellitus. Continue Levemir and NovoLog. 4. Systolic heart failure. Continue hemodialysis for fluid removal. 5. End-stage renal disease. Continue hemodialysis. 6. Anoxic encephalopathy. No acute issues. 7. Anemia of chronic disease. Continue Epogen. 8. Hypothyroidism. Continue Synthroid. 9. Dyslipidemia. Continue Lipitor. 10. Possible history of psychosis. Continue Seroquel and trazodone. Further recommendations based on clinical course. Plan of care discussed with Dr. Guerrero. Problems: Exam/Review of Systems Vital Signs Vitals Vital Signs Date Time Temp Pulse Resp B/P Pulse Ox O2 Delivery O2 Flow Rate FiO2 04/20/17 12:21 91 04/20/17 11:35 14 99 30 04/20/17 11:32 97.9 93/53 04/19/17 18:38 Mechanical Ventilator Intake and Output 04/19/17 04/19/17 04/20/17 15:00 23:00 07:00 Intake Total 625 ml 150 ml 540 ml Output Total 10 ml 5 ml 25 ml Balance 615 ml 145 ml 515 ml Exam Constitutional: alert, frail Head: normocephalic Neck: other (Tracheostomy), supple Respiratory: diminished breath sounds Cardiovascular: nl pulses Gastrointestinal: non-tender, other (GT), soft Extremities: normal pulses Neurological: nl mental status Results Result Diagram: 04/20/17 0535 04/20/17 0535 Results 24 hrs Laboratory Tests Test 04/19/17 13:02 04/19/17 17:41 04/19/17 20:41 04/20/17 00:24 Bedside Glucose 189 309 H 211 196 Test 04/20/17 05:00 04/20/17 05:01 04/20/17 05:35 04/20/17 09:38 Total Bilirubin 0.0 L Direct Bilirubin 0.00 Indirect Bilirubin 0.0 Aspartate Amino Transf (AST/SGOT) 32 Alanine Aminotransferase (ALT/SGPT) 27 Alkaline Phosphatase 214 H Total Protein 5.7 L Albumin 2.4 L Bedside Glucose 157 145 White Blood Count 10.0 Red Blood Count 2.97 L Hemoglobin 8.8 L Hematocrit 27.8 L Mean Corpuscular Volume 93.6 Mean Corpuscular Hemoglobin 29.6 Mean Corpuscular Hemoglobin Concent 31.7 L Red Cell Distribution Width 19.6 H Platelet Count 79 L Mean Platelet Volume 12.1 H Neutrophils % 87.8 H Lymphocytes % 5.8 L Monocytes % 3.5 Eosinophils % 0.0 Basophils % 0.1 Nucleated Red Blood Cells % 0.0 Neutrophils # 8.8 H Lymphocytes # 0.6 L Monocytes # 0.4 Eosinophils # 0.0 Basophils # 0.0 Nucleated Red Blood Cells # 0.0 Sodium Level 141 Potassium Level 4.1 Chloride Level 100 Carbon Dioxide Level 25 Anion Gap 20 H Blood Urea Nitrogen 75 H Creatinine 2.46 H Glucose Level 170 # Calcium Level 8.1 L Phosphorus Level 3.1 Magnesium Level 2.1 Medications Medications Current Medications Atorvastatin Calcium (Lipitor) 20 mg QHS GTB Last administered on 04/19/17 20: 42; Admin Dose 20 MG; Start 04/08/17 at 21:00 Acetaminophen/ Hydrocodone Bitart ([place] (5/325)) 1 tab Q6H PRN GTB SEVERE PAIN LEVEL 7-10 Last administered on 04/13/17 19:59; Admin Dose 1 TAB; Start at 19:30 Albuterol/ Ipratropium (Duoneb) 3 ml Q2H PRN NEB SHORTNESS OF BREATH; Start at 19:30 Levothyroxine Sodium (Synthroid) 125 mcg DAILY@06 GTB Last administered on 05:02; Admin Dose 125 MCG; Start 04/09/17 at 06:00 Lisinopril (Zestril) 2.5 mg BID GTB ; Start 04/08/17 at 21:00; Status Future Hold Metoprolol Tartrate (Lopressor) 25 mg BID GTB Last administered on 04/08/17 21 :30; Admin Dose 25 MG; Start 04/08/17 at 21:00; Status Future Hold Multivit/Ca Carb/ B Cmplx/FA/Prenat (Shayla-Anuradha) 1 tab DAILY GTB Last administered on 04/20/17 09:40; Admin Dose 1 TAB; Start 04/09/17 at 09:00 Quetiapine Fumarate (Seroquel) 25 mg BID GTB Last administered on 04/20/17 09: 40; Admin Dose 25 MG; Start 04/08/17 at 21:00 Trazodone HCl (Desyrel) 25 mg QHS PO Last administered on 04/19/17 20:42; Admin Dose 25 MG; Start 04/08/17 at 21:00 Acetaminophen (Tylenol Tab) 650 mg Q4H PRN PO PAIN AND OR ELEVATED TEMP; Start 04/08/17 at 19:30 Morphine Sulfate (morphine) 2 mg Q4H PRN IV PAIN LEVEL 8-10 Last administered on 04/19/17 18:52; Admin Dose 2 MG; Start 04/08/17 at 19:30 Miscellaneous Information 1 ea NOTE XX ; Start 04/08/17 at 20:00 Glucose (Glutose) 15 gm Q15M PRN PO DECREASED GLUCOSE; Start 04/08/17 at 20:00 Glucose (Glutose) 22.5 gm Q15M PRN PO DECREASED GLUCOSE; Start 04/08/17 at 20: 00 Dextrose (D50w Syringe) 25 ml Q15M PRN IV DECREASED GLUCOSE Last administered on 04/19/17 06:01; Admin Dose 25 ML; Start 04/08/17 at 20:00 Dextrose (D50w Syringe) 50 ml Q15M PRN IV DECREASED GLUCOSE; Start 04/08/17 at 20:00 Glucagon (Glucagen) 1 mg Q15M PRN IM DECREASED GLUCOSE; Start 04/08/17 at 20:00 Glucose (Glutose) 15 gm Q15M PRN BUCCAL DECREASED GLUCOSE; Start 04/08/17 at 20 :00 Collagenase (Santyl) 1 applic DAILY TOP Last administered on 04/20/17 09:40; Admin Dose 1 APPLIC; Start 04/09/17 at 14:00 Collagenase (Santyl) 1 applic DAILY PRN TOP WHEN SOILED; Start 04/09/17 at 13: 00 IV Flush (NS 10 ml) 10 ml PRN PRN IV FLUSH LINE; Start 04/10/17 at 16:30 Gentamicin Sulfate (Gentamicin Iv Per Pharmacy) GENTAMICIN PER PHARMACY NOTE XX ; Start 04/11/17 at 10:30 Metoclopramide HCl (Reglan Liq) 5 mg Q8 PO Last administered on 04/20/17 05:02 ; Admin Dose 5 MG; Start 04/12/17 at 08:30 Povidone Iodine (Povidone-Iodine) 1 applic DAILY TOP Last administered on 09:39; Admin Dose 1 APPLIC; Start 04/12/17 at 11:30 Insulin Aspart (Novolog Insulin Pen) NOVOLOG *MODERATE* ALGORI... Q4 SC Last administered on 04/20/17 09:44; Admin Dose 2 UNIT; Start 04/17/17 at 09:00 Insulin Detemir (Levemir) 8 unit BID SC Last administered on 04/20/17 09:43; Admin Dose 8 UNIT; Start 04/17/17 at 21:00 Acetaminophen (Tylenol Liquid) 650 mg Q6 PRN GTB PAIN AND OR ELEVATED TEMP; Start 04/17/17 at 11:30 HIEU DALY Apr 20, 2017 12:46
--- NOTE | 2017-04-20 12:53 | CONS ---
Date/Time of Note Date/Time of Note DATE: 04/20/17 TIME: 12:52 Assessment/Plan Assessment/Plan Chief Complaint/Hosp Course 66-year-old female with a history of end-stage renal disease on dialysis, status post trach on vent, status post PEG, admitted to the intensive care unit for sepsis. Patient also had a rectal bleeding. GI consult was called in for abdominal distention. Patient had both KUB and CAT scan done within the last few days CAT scan was negative for any acute pathology. Patient had some ascites and anasarca. KUB also was negative. Patient is on G-tube feeding at 10 cc/h. Her residual has been around 10 cc. No active bleeding has been noted by the staff in ICU. Problems: Additional Assessment/Plan 1. Sepsis. 2. Coronary artery disease with systolic heart failure. Continue hemodialysis to remove fluids. 3. Coronary artery disease, status post coronary artery bypass graft. 4. Dysphagia on tube feeds 5. Respiratory failure. Continue vent support. Will obtain a pulmonary consult from [facility]. 6. abdominal distension: CT unrevealing, minimal residual. 7. Anal cancer with recent rectal bleed. Status post radiation treatment. Her rectal bleeding is most probably from radiation proctitis 8. History of pulseless electrical activity with possible anoxic encephalopathy. Will continue to monitor. 9. History of GI bleed. 10. Dyslipidemia. 11. Anasarca, and ascites 12. Renal failure on dialysis 13. Encephalopathy, resolved patient is alert awake and oriented 14. Anemia multifactorial, stable now Plan increase lansoprazole to bid dosing Continue antibiotic continue tube feeding through the G-tube at 40 cc/h, which patient is tolerating well More fluid to be removed during dialysis. Patient has responded well the swelling has come down Anasarca also has reduced Consultation Date/Type/Reason Admit Date/Time Apr 08, 2017 at 16:19 Initial Consult Date 04/09/17 Type of Consultation: id Referring Provider: IVAN MALLOY MD 24 HR Interval Summary Constitutional: improved, no complaints Exam/Review of Systems Vital Signs Vitals Vital Signs Date Time Temp Pulse Resp B/P Pulse Ox O2 Delivery O2 Flow Rate FiO2 04/20/17 12:21 91 04/20/17 11:35 14 99 30 04/20/17 11:32 97.9 93/53 04/19/17 18:38 Mechanical Ventilator Intake and Output 7/4/17 7/4/17 7/5/17 15:00 23:00 07:00 Intake Total 625 ml 150 ml 540 ml Output Total 10 ml 5 ml 25 ml Balance 615 ml 145 ml 515 ml Exam Constitutional: alert, oriented, well developed Psych: nl mood/affect, no complaints Head: atraumatic, normocephalic Eyes: EOMI, PERRL, nl conjunctiva, nl lids, nl sclera ENMT: nl external ears & nose, nl lips & teeth, nl nasal mucosa & septum Neck: non-tender, supple Respiratory: clear to auscultation, normal air movement Cardiovascular: nl pulses, regular rate and rhythm Gastrointestinal: nl liver, spleen, non-tender, soft Musculoskeletal: nl extremities to inspection, nl gait and stance Extremities: normal pulses Neurological: SUPPORT [employer] REP II-XII intact, nl mental status, nl speech, nl strength Skin: nl turgor, No rash or lesions Lymph: nl lymph nodes Results Result Diagram: 04/20/17 0535 04/20/17 0535 Results 24 hrs Laboratory Tests Test 04/19/17 13:02 04/19/17 17:41 04/19/17 20:41 04/20/17 00:24 Bedside Glucose 189 309 H 211 196 Test 04/20/17 05:00 04/20/17 05:01 04/20/17 05:35 04/20/17 09:38 Total Bilirubin 0.0 L Direct Bilirubin 0.00 Indirect Bilirubin 0.0 Aspartate Amino Transf (AST/SGOT) 32 Alanine Aminotransferase (ALT/SGPT) 27 Alkaline Phosphatase 214 H Total Protein 5.7 L Albumin 2.4 L Bedside Glucose 157 145 White Blood Count 10.0 Red Blood Count 2.97 L Hemoglobin 8.8 L Hematocrit 27.8 L Mean Corpuscular Volume 93.6 Mean Corpuscular Hemoglobin 29.6 Mean Corpuscular Hemoglobin Concent 31.7 L Red Cell Distribution Width 19.6 H Platelet Count 79 L Mean Platelet Volume 12.1 H Neutrophils % 87.8 H Lymphocytes % 5.8 L Monocytes % 3.5 Eosinophils % 0.0 Basophils % 0.1 Nucleated Red Blood Cells % 0.0 Neutrophils # 8.8 H Lymphocytes # 0.6 L Monocytes # 0.4 Eosinophils # 0.0 Basophils # 0.0 Nucleated Red Blood Cells # 0.0 Sodium Level 141 Potassium Level 4.1 Chloride Level 100 Carbon Dioxide Level 25 Anion Gap 20 H Blood Urea Nitrogen 75 H Creatinine 2.46 H Glucose Level 170 # Calcium Level 8.1 L Phosphorus Level 3.1 Magnesium Level 2.1 Medications Medications Current Medications Atorvastatin Calcium (Lipitor) 20 mg QHS GTB Last administered on 04/19/17 20: 42; Admin Dose 20 MG; Start 04/08/17 at 21:00 Acetaminophen/ Hydrocodone Bitart ([place] (5/325)) 1 tab Q6H PRN GTB SEVERE PAIN LEVEL 7-10 Last administered on 04/13/17 19:59; Admin Dose 1 TAB; Start at 19:30 Albuterol/ Ipratropium (Duoneb) 3 ml Q2H PRN NEB SHORTNESS OF BREATH; Start at 19:30 Levothyroxine Sodium (Synthroid) 125 mcg DAILY@06 GTB Last administered on 05:02; Admin Dose 125 MCG; Start 04/09/17 at 06:00 Lisinopril (Zestril) 2.5 mg BID GTB ; Start 04/08/17 at 21:00; Status Future Hold Metoprolol Tartrate (Lopressor) 25 mg BID GTB Last administered on 04/08/17 21 :30; Admin Dose 25 MG; Start 04/08/17 at 21:00; Status Future Hold Multivit/Ca Carb/ B Cmplx/FA/Prenat (Shayla-Anuradha) 1 tab DAILY GTB Last administered on 04/20/17 09:40; Admin Dose 1 TAB; Start 04/09/17 at 09:00 Quetiapine Fumarate (Seroquel) 25 mg BID GTB Last administered on 04/20/17 09: 40; Admin Dose 25 MG; Start 04/08/17 at 21:00 Trazodone HCl (Desyrel) 25 mg QHS PO Last administered on 04/19/17 20:42; Admin Dose 25 MG; Start 04/08/17 at 21:00 Acetaminophen (Tylenol Tab) 650 mg Q4H PRN PO PAIN AND OR ELEVATED TEMP; Start 04/08/17 at 19:30 Morphine Sulfate (morphine) 2 mg Q4H PRN IV PAIN LEVEL 8-10 Last administered on 04/19/17 18:52; Admin Dose 2 MG; Start 04/08/17 at 19:30 Miscellaneous Information 1 ea NOTE XX ; Start 04/08/17 at 20:00 Glucose (Glutose) 15 gm Q15M PRN PO DECREASED GLUCOSE; Start 04/08/17 at 20:00 Glucose (Glutose) 22.5 gm Q15M PRN PO DECREASED GLUCOSE; Start 04/08/17 at 20: 00 Dextrose (D50w Syringe) 25 ml Q15M PRN IV DECREASED GLUCOSE Last administered on 04/19/17 06:01; Admin Dose 25 ML; Start 04/08/17 at 20:00 Dextrose (D50w Syringe) 50 ml Q15M PRN IV DECREASED GLUCOSE; Start 04/08/17 at 20:00 Glucagon (Glucagen) 1 mg Q15M PRN IM DECREASED GLUCOSE; Start 04/08/17 at 20:00 Glucose (Glutose) 15 gm Q15M PRN BUCCAL DECREASED GLUCOSE; Start 04/08/17 at 20 :00 Collagenase (Santyl) 1 applic DAILY TOP Last administered on 04/20/17 09:40; Admin Dose 1 APPLIC; Start 04/09/17 at 14:00 Collagenase (Santyl) 1 applic DAILY PRN TOP WHEN SOILED; Start 04/09/17 at 13: 00 IV Flush (NS 10 ml) 10 ml PRN PRN IV FLUSH LINE; Start 04/10/17 at 16:30 Gentamicin Sulfate (Gentamicin Iv Per Pharmacy) GENTAMICIN PER PHARMACY NOTE XX ; Start 04/11/17 at 10:30 Metoclopramide HCl (Reglan Liq) 5 mg Q8 PO Last administered on 04/20/17 05:02 ; Admin Dose 5 MG; Start 04/12/17 at 08:30 Povidone Iodine (Povidone-Iodine) 1 applic DAILY TOP Last administered on 09:39; Admin Dose 1 APPLIC; Start 04/12/17 at 11:30 Insulin Aspart (Novolog Insulin Pen) NOVOLOG *MODERATE* ALGORI... Q4 SC Last administered on 04/20/17 09:44; Admin Dose 2 UNIT; Start 04/17/17 at 09:00 Insulin Detemir (Levemir) 8 unit BID SC Last administered on 04/20/17 09:43; Admin Dose 8 UNIT; Start 04/17/17 at 21:00 Acetaminophen (Tylenol Liquid) 650 mg Q6 PRN GTB PAIN AND OR ELEVATED TEMP; Start 04/17/17 at 11:30 KAIN HOWELL MD Apr 20, 2017 12:53
--- NOTE | 2017-04-20 14:08 | CONS ---
Date/Time of Note Date/Time of Note DATE: 04/20/17 TIME: 14:02 Assessment/Plan Assessment/Plan Additional Assessment/Plan - septic shock due to bacteremia (Klebsiella) - bacteremia due to klebsiella, likely from PNA - complicated UTI due to enterobacter - possible HCAP due to klebsiella and pseudomonas, with moderate pleural effusion - acute toxic metabolic encephalopathy - improving - rectal bleeding at [facility]F prior to admission, possibly due to radiation proctitis. So far no bleeding after arrival - normocytic anemia - h/o anal CA s/p radiation - diverticulosis without diverticulitis on CT - mild ascites - bloody secretion via trach, possible due to CHF - pulm edema and volume overload - ESRD on HD, via permacath on R chest wall. 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 Consultation Date/Type/Reason Admit Date/Time Apr 08, 2017 at 16:19 Initial Consult Date 04/09/17 Type of Consultation: id Referring Provider: IVAN MALLOY MD 24 HR Interval Summary Free Text/Dictation alert, opens eyes when called by name, says yes when asked if she is feeing better,responsive, afebrile, getting HD- toileting well, denies any complaints at present. Dw staff. Exam/Review of Systems Vital Signs Vitals Vital Signs Date Time Temp Pulse Resp B/P Pulse Ox O2 Delivery O2 Flow Rate FiO2 04/20/17 13:23 96 15 98 30 04/20/17 11:32 97.9 93/53 04/19/17 18:38 Mechanical Ventilator Intake and Output 04/19/17 04/19/17 04/20/17 15:00 23:00 07:00 Intake Total 625 ml 150 ml 540 ml Output Total 10 ml 5 ml 25 ml Balance 615 ml 145 ml 515 ml Exam Constitutional: alert, well developed Psych: nl mood/affect Respiratory: clear to auscultation, normal air movement, other (trach intact) Cardiovascular: nl pulses, other (hypotensive, getting albumin durin HD), regular rate and rhythm Gastrointestinal: non-tender, soft Genitourinary - Female: other (HD) Musculoskeletal: nl extremities to inspection Extremities: edema (mild edema BLE, neg), normal pulses Skin: nl turgor Results Result Diagram: 04/20/17 0535 04/20/1735 Results 24 hrs Laboratory Tests Test 04/19/17 17:41 04/19/17 20:41 04/20/17 00:24 04/20/17 05:00 Bedside Glucose 309 H 211 196 Total Bilirubin 0.0 L Direct Bilirubin 0.00 Indirect Bilirubin 0.0 Aspartate Amino Transf (AST/SGOT) 32 Alanine Aminotransferase (ALT/SGPT) 27 Alkaline Phosphatase 214 H Total Protein 5.7 L Albumin 2.4 L Test 04/20/17 05:01 04/20/17 05:35 04/20/17 09:38 04/20/17 13:15 Bedside Glucose 157 145 125 White Blood Count 10.0 Red Blood Count 2.97 L Hemoglobin 8.8 L Hematocrit 27.8 L Mean Corpuscular Volume 93.6 Mean Corpuscular Hemoglobin 29.6 Mean Corpuscular Hemoglobin Concent 31.7 L Red Cell Distribution Width 19.6 H Platelet Count 79 L Mean Platelet Volume 12.1 H Neutrophils % 87.8 H Lymphocytes % 5.8 L Monocytes % 3.5 Eosinophils % 0.0 Basophils % 0.1 Nucleated Red Blood Cells % 0.0 Neutrophils # 8.8 H Lymphocytes # 0.6 L Monocytes # 0.4 Eosinophils # 0.0 Basophils # 0.0 Nucleated Red Blood Cells # 0.0 Sodium Level 141 Potassium Level 4.1 Chloride Level 100 Carbon Dioxide Level 25 Anion Gap 20 H Blood Urea Nitrogen 75 H Creatinine 2.46 H Glucose Level 170 # Calcium Level 8.1 L Phosphorus Level 3.1 Magnesium Level 2.1 Medications Medications Current Medications Atorvastatin Calcium (Lipitor) 20 mg QHS GTB Last administered on 04/19/17t 20: 42; Admin Dose 20 MG; Start 04/08/17 at 21:00 Acetaminophen/ Hydrocodone Bitart ([place] (5/325)) 1 tab Q6H PRN GTB SEVERE PAIN LEVEL 7-10 Last administered on 04/13/17 19:59; Admin Dose 1 TAB; Start at 19:30 Albuterol/ Ipratropium (Duoneb) 3 ml Q2H PRN NEB SHORTNESS OF BREATH; Start at 19:30 Levothyroxine Sodium (Synthroid) 125 mcg DAILY@06 GTB Last administered on 05:02; Admin Dose 125 MCG; Start 04/09/17 at 06:00 Lisinopril (Zestril) 2.5 mg BID GTB ; Start 04/08/17 at 21:00; Status Future Hold Metoprolol Tartrate (Lopressor) 25 mg BID GTB Last administered on 04/08/17 21 :30; Admin Dose 25 MG; Start 04/08/17 at 21:00; Status Future Hold Multivit/Ca Carb/ B Cmplx/FA/Prenat (Shayla-Anuradha) 1 tab DAILY GTB Last administered on 04/20/17 09:40; Admin Dose 1 TAB; Start 04/09/17 at 09:00 Quetiapine Fumarate (Seroquel) 25 mg BID GTB Last administered on 04/20/17 09: 40; Admin Dose 25 MG; Start 04/08/17 at 21:00 Trazodone HCl (Desyrel) 25 mg QHS PO Last administered on 04/19/17 20:42; Admin Dose 25 MG; Start 04/08/17 at 21:00 Acetaminophen (Tylenol Tab) 650 mg Q4H PRN PO PAIN AND OR ELEVATED TEMP; Start 04/08/17 at 19:30 Morphine Sulfate (morphine) 2 mg Q4H PRN IV PAIN LEVEL 8-10 Last administered on 04/19/17 18:52; Admin Dose 2 MG; Start 04/08/17 at 19:30 Miscellaneous Information 1 ea NOTE XX ; Start 04/08/17 at 20:00 Glucose (Glutose) 15 gm Q15M PRN PO DECREASED GLUCOSE; Start 04/08/17 at 20:00 Glucose (Glutose) 22.5 gm Q15M PRN PO DECREASED GLUCOSE; Start 04/08/17 at 20: 00 Dextrose (D50w Syringe) 25 ml Q15M PRN IV DECREASED GLUCOSE Last administered on 04/19/17 06:01; Admin Dose 25 ML; Start 04/08/17 at 20:00 Dextrose (D50w Syringe) 50 ml Q15M PRN IV DECREASED GLUCOSE; Start 04/08/17 at 20:00 Glucagon (Glucagen) 1 mg Q15M PRN IM DECREASED GLUCOSE; Start 04/08/17 at 20:00 Glucose (Glutose) 15 gm Q15M PRN BUCCAL DECREASED GLUCOSE; Start 04/08/17 at 20 :00 Collagenase (Santyl) 1 applic DAILY TOP Last administered on 04/20/17 09:40; Admin Dose 1 APPLIC; Start 04/09/17 at 14:00 Collagenase (Santyl) 1 applic DAILY PRN TOP WHEN SOILED; Start 04/09/17 at 13: 00 IV Flush (NS 10 ml) 10 ml PRN PRN IV FLUSH LINE; Start 04/10/17 at 16:30 Gentamicin Sulfate (Gentamicin Iv Per Pharmacy) GENTAMICIN PER PHARMACY NOTE XX ; Start 04/11/17 at 10:30 Metoclopramide HCl (Reglan Liq) 5 mg Q8 PO Last administered on 04/20/17 13:16 ; Admin Dose 5 MG; Start 04/12/17 at 08:30 Povidone Iodine (Povidone-Iodine) 1 applic DAILY TOP Last administered on 09:39; Admin Dose 1 APPLIC; Start 04/12/17 at 11:30 Insulin Aspart (Novolog Insulin Pen) NOVOLOG *MODERATE* ALGORI... Q4 SC Last administered on 04/20/17 09:44; Admin Dose 2 UNIT; Start 04/17/17 at 09:00 Insulin Detemir (Levemir) 8 unit BID SC Last administered on 04/20/17 09:43; Admin Dose 8 UNIT; Start 04/17/17 at 21:00 Acetaminophen (Tylenol Liquid) 650 mg Q6 PRN GTB PAIN AND OR ELEVATED TEMP; Start 04/17/17 at 11:30 VIRGINIA RODARTE Apr 20, 2017 14:08
--- NOTE | 2017-04-20 16:45 | CONS ---
Date/Time of Note Date/Time of Note DATE: 04/20/17 TIME: 16:44 Consult Date/Type/Reason Admit Date/Time Apr 08, 2017 at 16:19 Initial Consult Date 04/09/17 Type of Consultation: Pulmonary Ordering Provider: IVAN MALLOY MD Subjective Patient remains comfortable no new events Objective Vital Signs Date Time Temp Pulse Resp B/P Pulse Ox O2 Delivery O2 Flow Rate FiO2 04/20/17 16:14 87 04/20/17 15:59 98.0 17 126/59 100 04/20/17 15:16 30 04/19/17 18:38 Mechanical Ventilator Intake and Output 04/19/17 04/19/17 04/20/17 14:59 22:59 06:59 Intake Total 585 ml 190 ml 540 ml Output Total 10 ml 5 ml 25 ml Balance 575 ml 185 ml 515 ml Exam PHYSICAL EXAMINATION GENERAL: Elderly lady on mechanical ventilation via tracheostomy appears comfortable at rest VITAL SIGNS: see below. HEENT: Pupils equal, round, and reactive to light. Tracheostomy site clean and intact. CARDIAC: S1, S2, 1/6 systolic ejection murmur CHEST: Diminished air entry bilaterally. ABDOMEN: Mildly distended. Bowel sounds present no guarding or rebound EXTREMITIES: No cyanosis, clubbing edema +1 NEUROLOGIC: Generalized weakness Results/Medications Result Diagram: 04/20/17 0535 04/20/17 0535 Results 24 hrs Laboratory Tests Test 04/19/17 17:41 04/19/17 20:41 04/20/17 00:24 04/20/17 05:00 Bedside Glucose 309 H 211 196 Total Bilirubin 0.0 L Direct Bilirubin 0.00 Indirect Bilirubin 0.0 Aspartate Amino Transf (AST/SGOT) 32 Alanine Aminotransferase (ALT/SGPT) 27 Alkaline Phosphatase 214 H Total Protein 5.7 L Albumin 2.4 L Test 04/20/17 05:01 04/20/17 05:35 04/20/17 09:38 04/20/17 13:15 Bedside Glucose 157 145 125 White Blood Count 10.0 Red Blood Count 2.97 L Hemoglobin 8.8 L Hematocrit 27.8 L Mean Corpuscular Volume 93.6 Mean Corpuscular Hemoglobin 29.6 Mean Corpuscular Hemoglobin Concent 31.7 L Red Cell Distribution Width 19.6 H Platelet Count 79 L Mean Platelet Volume 12.1 H Neutrophils % 87.8 H Lymphocytes % 5.8 L Monocytes % 3.5 Eosinophils % 0.0 Basophils % 0.1 Nucleated Red Blood Cells % 0.0 Neutrophils # 8.8 H Lymphocytes # 0.6 L Monocytes # 0.4 Eosinophils # 0.0 Basophils # 0.0 Nucleated Red Blood Cells # 0.0 Sodium Level 141 Potassium Level 4.1 Chloride Level 100 Carbon Dioxide Level 25 Anion Gap 20 H Blood Urea Nitrogen 75 H Creatinine 2.46 H Glucose Level 170 # Calcium Level 8.1 L Phosphorus Level 3.1 Magnesium Level 2.1 Medications Current Medications Atorvastatin Calcium (Lipitor) 20 mg QHS GTB Last administered on 04/19/17 20: 42; Admin Dose 20 MG; Start 04/08/17 at 21:00 Acetaminophen/ Hydrocodone Bitart ([place] (5/325)) 1 tab Q6H PRN GTB SEVERE PAIN LEVEL 7-10 Last administered on 04/13/17 19:59; Admin Dose 1 TAB; Start at 19:30 Albuterol/ Ipratropium (Duoneb) 3 ml Q2H PRN NEB SHORTNESS OF BREATH; Start at 19:30 Levothyroxine Sodium (Synthroid) 125 mcg DAILY@06 GTB Last administered on 05:02; Admin Dose 125 MCG; Start 04/09/17 at 06:00 Lisinopril (Zestril) 2.5 mg BID GTB ; Start 04/08/17 at 21:00; Status Future Hold Metoprolol Tartrate (Lopressor) 25 mg BID GTB Last administered on 04/08/17 21 :30; Admin Dose 25 MG; Start 04/08/17 at 21:00; Status Future Hold Multivit/Ca Carb/ B Cmplx/FA/Prenat (Shayla-Anuradha) 1 tab DAILY GTB Last administered on 04/20/17 09:40; Admin Dose 1 TAB; Start 04/09/17 at 09:00 Quetiapine Fumarate (Seroquel) 25 mg BID GTB Last administered on 04/20/17 09: 40; Admin Dose 25 MG; Start 04/08/17 at 21:00 Trazodone HCl (Desyrel) 25 mg QHS PO Last administered on 04/19/17 20:42; Admin Dose 25 MG; Start 04/08/17 at 21:00 Acetaminophen (Tylenol Tab) 650 mg Q4H PRN PO PAIN AND OR ELEVATED TEMP; Start 04/08/17 at 19:30 Morphine Sulfate (morphine) 2 mg Q4H PRN IV PAIN LEVEL 8-10 Last administered on 04/19/17 18:52; Admin Dose 2 MG; Start 04/08/17 at 19:30 Miscellaneous Information 1 ea NOTE XX ; Start 04/08/17 at 20:00 Glucose (Glutose) 15 gm Q15M PRN PO DECREASED GLUCOSE; Start 04/08/17 at 20:00 Glucose (Glutose) 22.5 gm Q15M PRN PO DECREASED GLUCOSE; Start 04/08/17 at 20: 00 Dextrose (D50w Syringe) 25 ml Q15M PRN IV DECREASED GLUCOSE Last administered on 04/19/17 06:01; Admin Dose 25 ML; Start 04/08/17 at 20:00 Dextrose (D50w Syringe) 50 ml Q15M PRN IV DECREASED GLUCOSE; Start 04/08/17 at 20:00 Glucagon (Glucagen) 1 mg Q15M PRN IM DECREASED GLUCOSE; Start 04/08/17 at 20:00 Glucose (Glutose) 15 gm Q15M PRN BUCCAL DECREASED GLUCOSE; Start 04/08/17 at 20 :00 Collagenase (Santyl) 1 applic DAILY TOP Last administered on 04/20/17 09:40; Admin Dose 1 APPLIC; Start 04/09/17 at 14:00 Collagenase (Santyl) 1 applic DAILY PRN TOP WHEN SOILED; Start 04/09/17 at 13: 00 IV Flush (NS 10 ml) 10 ml PRN PRN IV FLUSH LINE; Start 04/10/17 at 16:30 Gentamicin Sulfate (Gentamicin Iv Per Pharmacy) GENTAMICIN PER PHARMACY NOTE XX ; Start 04/11/17 at 10:30 Metoclopramide HCl (Reglan Liq) 5 mg Q8 PO Last administered on 04/20/17 13:16 ; Admin Dose 5 MG; Start 04/12/17 at 08:30 Povidone Iodine (Povidone-Iodine) 1 applic DAILY TOP Last administered on 09:39; Admin Dose 1 APPLIC; Start 04/12/17 at 11:30 Insulin Aspart (Novolog Insulin Pen) NOVOLOG *MODERATE* ALGORI... Q4 SC Last administered on 04/20/17 09:44; Admin Dose 2 UNIT; Start 04/17/17 at 09:00 Insulin Detemir (Levemir) 8 unit BID SC Last administered on 04/20/17 09:43; Admin Dose 8 UNIT; Start 04/17/17 at 21:00 Acetaminophen (Tylenol Liquid) 650 mg Q6 PRN GTB PAIN AND OR ELEVATED TEMP; Start 04/17/17 at 11:30 Assessment/Plan Chief Complaint/Hosp Course IMP: 1. Status post septic shock with klebsiella bacteremia 2. VDRF 3. ESRD on HD 4. CHF with tachycardia 5. Encephalopathy resolving RECS: 1. monitor off vasopressors 2. Continue HD/UF 3. Abx per ID 4. A.m. labs. 5. Replete K+ 6. Continue tube feeding as tolerated Consider transfer back to long-term facility. Problems: STEPHANIE BAIRES MD, [facility] Apr 20, 2017 16:44
--- NOTE | 2017-04-20 17:41 | CONS ---
Date/Time of Note Date/Time of Note DATE: 04/20/17 TIME: 17:32 Assessment/Plan Assessment/Plan Additional Assessment/Plan Nonsustained ventricular tachycardia Cardiomyopathy with ejection fraction 40% CAD with history of CABG Sepsis Kidney disease on hemodialysis -Patient with approximately 20 seconds of nonsustained ventricular tachycardia noted at the end of hemodialysis on telemetry. Patient was asymptomatic and remains so. She denies any chest pain or shortness of breath. She does have a history of nonsustained ventricular tachycardia when she was at [facility]. Patient's ejection fraction is approximately 40%. Would increase dose of beta-elie as blood pressure and heart rate permits, check electrolytes, continue telemetry monitoring, maintain potassium above 4.0 and magnesium above 2.0. Consultation Date/Type/Reason Admit Date/Time Apr 08, 2017 at 16:19 Type of Consultation: cv Reason for Consultation Ventricular tachycardia Hx of Present Illness This is a 66-year-old female with past medical history of respiratory failure with tracheostomy on ventilator, recent acute kidney injury on hemodialysis who was transferred to our facility secondary to septic shock. Patient treated with multiple antibiotics and nephrology involvement for hemodialysis and fluid management. Patient with progressive improvement in overall status. Patient undergoing hemodialysis today and is in the dialysis, as per the nursing staff, patient had a run of nonsustained ventricular tachycardia. For this reason cardiology consultation was requested. She currently denies any chest pain, shortness of breath, dizziness or lightheadedness or palpitations. 12 point review of systems was performed with all pertinent positives and negatives mentioned above and all else is negative Constitutional: improved, no complaints Eyes: no complaints ENT: no complaints Respiratory: No shortness of breath Cardiovascular: no complaints Gastrointestinal: no complaints Genitourinary: no complaints Musculoskeletal: no complaints Skin: no complaints Neurologic: no complaints Endocrine: no complaints Lymphatic: no complaints Psychological: nl mood/affect Immunologic: no complaints Past Medical History Congestive heart failure Medical History: cancer (Anal cancer treated with radiation), coronary artery disease, renal disease, other (anal CA s/p radiation, vent and G tube dependent) Past Surgical History Past Surgical Hx: coronary bypass surgery, other (Status post trach and PEG) Family History Significant Family History: no pertinent family hx Social History Alcohol Use: none Smoking Status: Unknown if ever smoked Drug Use: none Other Social History From facility Exam/Review of Systems Vital Signs Vitals Vital Signs Date Time Temp Pulse Resp B/P Pulse Ox O2 Delivery O2 Flow Rate FiO2 04/20/17 17:13 104 17 99 30 04/20/17 15:59 98.0 126/59 04/19/17 18:38 Mechanical Ventilator Intake and Output 04/19/17 04/19/17 04/20/17 15:00 23:00 07:00 Intake Total 625 ml 150 ml 540 ml Output Total 10 ml 5 ml 25 ml Balance 615 ml 145 ml 515 ml Exam Sleeping but arousable and follows commands and able to give history, no apparent distress Head: normocephalic Neck: other (Tracheostomy) Respiratory: other (Coarse breath sounds bilaterally, no wheezing) Cardiovascular: other (S1-S2 heard), regular rate and rhythm Gastrointestinal: bowel sounds, non-tender, other (No guarding), soft Extremities: edema Results Result Diagram: 04/20/17 0535 04/20/17 0535 Results 24 hrs Laboratory Tests Test 04/19/17 17:41 04/19/17 20:41 04/20/17 00:24 04/20/17 05:00 Bedside Glucose 309 H 211 196 Total Bilirubin 0.0 L Direct Bilirubin 0.00 Indirect Bilirubin 0.0 Aspartate Amino Transf (AST/SGOT) 32 Alanine Aminotransferase (ALT/SGPT) 27 Alkaline Phosphatase 214 H Total Protein 5.7 L Albumin 2.4 L Test 04/20/17 05:01 04/20/17 05:35 04/20/17 09:38 04/20/17 13:15 Bedside Glucose 157 145 125 White Blood Count 10.0 Red Blood Count 2.97 L Hemoglobin 8.8 L Hematocrit 27.8 L Mean Corpuscular Volume 93.6 Mean Corpuscular Hemoglobin 29.6 Mean Corpuscular Hemoglobin Concent 31.7 L Red Cell Distribution Width 19.6 H Platelet Count 79 L Mean Platelet Volume 12.1 H Neutrophils % 87.8 H Lymphocytes % 5.8 L Monocytes % 3.5 Eosinophils % 0.0 Basophils % 0.1 Nucleated Red Blood Cells % 0.0 Neutrophils # 8.8 H Lymphocytes # 0.6 L Monocytes # 0.4 Eosinophils # 0.0 Basophils # 0.0 Nucleated Red Blood Cells # 0.0 Sodium Level 141 Potassium Level 4.1 Chloride Level 100 Carbon Dioxide Level 25 Anion Gap 20 H Blood Urea Nitrogen 75 H Creatinine 2.46 H Glucose Level 170 # Calcium Level 8.1 L Phosphorus Level 3.1 Magnesium Level 2.1 Medications Medications Current Medications Atorvastatin Calcium (Lipitor) 20 mg QHS GTB Last administered on 04/19/17 20: 42; Admin Dose 20 MG; Start 04/08/17 at 21:00 Acetaminophen/ Hydrocodone Bitart ([place] (5/325)) 1 tab Q6H PRN GTB SEVERE PAIN LEVEL 7-10 Last administered on 04/13/17 19:59; Admin Dose 1 TAB; Start at 19:30 Albuterol/ Ipratropium (Duoneb) 3 ml Q2H PRN NEB SHORTNESS OF BREATH; Start at 19:30 Levothyroxine Sodium (Synthroid) 125 mcg DAILY@06 GTB Last administered on 05:02; Admin Dose 125 MCG; Start 04/09/17 at 06:00 Lisinopril (Zestril) 2.5 mg BID GTB ; Start 04/08/17 at 21:00; Status Future Hold Metoprolol Tartrate (Lopressor) 25 mg BID GTB Last administered on 04/08/17 21 :30; Admin Dose 25 MG; Start 04/08/17 at 21:00; Status Future Hold Multivit/Ca Carb/ B Cmplx/FA/Prenat (Shayal-Anuradha) 1 tab DAILY GTB Last administered on 04/20/17 09:40; Admin Dose 1 TAB; Start 04/09/17 at 09:00 Quetiapine Fumarate (Seroquel) 25 mg BID GTB Last administered on 04/20/17 09: 40; Admin Dose 25 MG; Start 04/08/17 at 21:00 Trazodone HCl (Desyrel) 25 mg QHS PO Last administered on 04/19/17 20:42; Admin Dose 25 MG; Start 04/08/17 at 21:00 Acetaminophen (Tylenol Tab) 650 mg Q4H PRN PO PAIN AND OR ELEVATED TEMP; Start 04/08/17 at 19:30 Morphine Sulfate (morphine) 2 mg Q4H PRN IV PAIN LEVEL 8-10 Last administered on 04/19/17 18:52; Admin Dose 2 MG; Start 04/08/17 at 19:30 Miscellaneous Information 1 ea NOTE XX ; Start 04/08/17 at 20:00 Glucose (Glutose) 15 gm Q15M PRN PO DECREASED GLUCOSE; Start 04/08/17 at 20:00 Glucose (Glutose) 22.5 gm Q15M PRN PO DECREASED GLUCOSE; Start 04/08/17 at 20: 00 Dextrose (D50w Syringe) 25 ml Q15M PRN IV DECREASED GLUCOSE Last administered on 04/19/17 06:01; Admin Dose 25 ML; Start 04/08/17 at 20:00 Dextrose (D50w Syringe) 50 ml Q15M PRN IV DECREASED GLUCOSE; Start 04/08/17 at 20:00 Glucagon (Glucagen) 1 mg Q15M PRN IM DECREASED GLUCOSE; Start 04/08/17 at 20:00 Glucose (Glutose) 15 gm Q15M PRN BUCCAL DECREASED GLUCOSE; Start 04/08/17 at 20 :00 Collagenase (Santyl) 1 applic DAILY TOP Last administered on 04/20/17 09:40; Admin Dose 1 APPLIC; Start 04/09/17 at 14:00 Collagenase (Santyl) 1 applic DAILY PRN TOP WHEN SOILED; Start 04/09/17 at 13: 00 IV Flush (NS 10 ml) 10 ml PRN PRN IV FLUSH LINE; Start 04/10/17 at 16:30 Gentamicin Sulfate (Gentamicin Iv Per Pharmacy) GENTAMICIN PER PHARMACY NOTE XX ; Start 04/11/17 at 10:30 Metoclopramide HCl (Reglan Liq) 5 mg Q8 PO Last administered on 04/20/17 13:16 ; Admin Dose 5 MG; Start 04/12/17 at 08:30 Povidone Iodine (Povidone-Iodine) 1 applic DAILY TOP Last administered on 09:39; Admin Dose 1 APPLIC; Start 04/12/17 at 11:30 Insulin Aspart (Novolog Insulin Pen) NOVOLOG *MODERATE* ALGORI... Q4 SC Last administered on 04/20/17 09:44; Admin Dose 2 UNIT; Start 04/17/17 at 09:00 Insulin Detemir (Levemir) 8 unit BID SC Last administered on 04/20/17 09:43; Admin Dose 8 UNIT; Start 04/17/17 at 21:00 Acetaminophen (Tylenol Liquid) 650 mg Q6 PRN GTB PAIN AND OR ELEVATED TEMP; Start 04/17/17 at 11:30 Carvedilol (Coreg) 3.125 mg BID GTB ; Start 04/20/17 at 21:00 Lisinopril (Zestril) 5 mg DAILY GTB ; Start 04/21/17 at 09:00 Biju Mcdaniels DO Apr 20, 2017 17:41
[2017-04-20] MEDS: traZODone 50 MG TAB PO SCH (21:46)
[2017-04-20] MEDS: ATORVASTATIN 20 MG TAB GTB SCH (21:46)
[2017-04-21] VITALS (25 sets, daily range): BP systolic 85–131; BP diastolic 44–62; PULSE 91–108; RESP 14–22
[2017-04-21] MEDS: INSULIN ASPART [NOVOLOG] 3 ML PEN SC SCH ×6 (01:00→21:00)
[2017-04-21] MEDS: LEVOTHYROXINE 125 MCG TAB GTB SCH (06:39)
[2017-04-21] MEDS: METOCLOPRAMIDE (1 MG/ML) 10 ML CUP PO SCH ×3 (06:39→21:32)
[2017-04-21] MEDS: LANSOPRAZOLE 30 MG CAP GTB SCH ×2 (06:39→16:34)
[2017-04-21 06:49] LABS: ADD SCAN DIFF NO
[2017-04-21 07:02] LABS: ABNORMAL IP MESSAGE 1; BASOPHILS % 0.1 % (0.0-2.0); HEMATOCRIT 25.7 % (37.0-47.0); LYMPHOCYTES # 0.8 10^3/ul (0.8-2.9); LYMPHOCYTES % 10.4 % (15.0-51.0); MEAN CORPUSCULAR HEMOGLOBIN 29.1 pg (29.0-33.0); MEAN CORPUSCULAR HGB CONC 31.1 g/dl (32.0-37.0); MEAN CORPUSCULAR VOLUME 93.5 fl (82.0-101.0); MEAN PLATELET VOLUME 12.2 fl (7.4-10.4); MONOCYTE # 0.4 10^3/ul (0.3-0.9); MONOCYTES % 4.7 % (0.0-11.0); NEUTROPHIL # 6.3 10^3/ul (1.6-7.5); NEUTROPHILS % 83.3 % (39.0-77.0); RED BLOOD COUNT 2.75 10^6/ul (4.20-5.40); WHITE BLOOD COUNT 7.5 10^3/ul (4.8-10.8)
[2017-04-21 07:06] LABS: PLATELET COUNT 75 10^3/UL (140-415)
[2017-04-21 07:38] LABS: CALCIUM 7.7 mg/dl (8.4-10.2); CREATININE 1.78 mg/dl (0.44-1.00); POTASSIUM 4.1 mmol/L (3.5-5.1)
[2017-04-21] MEDS: QUETIAPINE 25 MG TAB GTB SCH ×2 (08:10→21:34)
[2017-04-21] MEDS: MULTIVIT/CA CARB/B CMPLX/FA TAB GTB SCH (08:10)
[2017-04-21] MEDS: POVIDONE IODINE 10% 28.4 GM OINT TOP SCH (08:11)
[2017-04-21] MEDS: COLLAGENASE 30 GM TUBE TOP SCH (08:11)
[2017-04-21] MEDS: LISINOPRIL 5 MG TAB GTB SCH (08:11)
[2017-04-21] MEDS: INSULIN DETEMIR [LEVEMIR] 3ML CART SC SCH ×2 (08:15→22:32)
[2017-04-21] MEDS: ACETAMINOPHEN 650MG/20.3ML CUP GTB PRN (08:17)
[2017-04-21] MEDS: GENTAMICIN 80 MG/NS (PMX) 50 ML IVPB SCH (10:16)
[2017-04-21] MEDS: morphine 2 MG INJ IV PRN (11:29)
--- NOTE | 2017-04-21 12:51 | CONS ---
Date/Time of Note Date/Time of Note DATE: 04/21/17 TIME: 12:43 Assessment/Plan Assessment/Plan Chief Complaint/Hosp Course - septic shock due to bacteremia (Klebsiella) - resolved - bacteremia due to klebsiella, likely from PNA - complicated UTI due to enterobacter - possible HCAP due to klebsiella and pseudomonas, with moderate pleural effusion - acute toxic metabolic encephalopathy - improving - rectal bleeding at SNF prior to admission, possibly due to radiation proctitis. So far no bleeding after arrival - normocytic anemia - h/o anal CA s/p radiation - diverticulosis without diverticulitis on CT - mild ascites - bloody secretion via trach, possible due to CHF - pulm edema and volume overload - ESRD on HD, via permacath on R chest wall. 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 Thurston Problems: Consultation Date/Type/Reason Admit Date/Time Apr 08, 2017 at 16:19 Initial Consult Date 04/09/17 Type of Consultation: Infectious Disease Referring Provider: IVAN MALLOY MD 24 HR Interval Summary Free Text/Dictation Tmax 100.3 and Tylenol given per d/w nursing staff. Pt nods no to pain, SOB, n/v/d. Subjective hx not possible: pt non-verbal Exam/Review of Systems Vital Signs Vitals Vital Signs Date Time Temp Pulse Resp B/P Pulse Ox O2 Delivery O2 Flow Rate FiO2 04/21/17 12:09 91 04/21/17 11:42 30 04/21/17 11:41 98.5 18 85/44 94 04/19/17 18:38 Mechanical Ventilator Intake and Output 04/20/17 04/20/17 04/21/17 15:00 23:00 07:00 Intake Total 300 ml 500 ml 540 ml Output Total 1800 ml 5 ml Balance -1500 ml 500 ml 535 ml Exam Constitutional: alert, frail, non-verbal Head: atraumatic, normocephalic Eyes: nl conjunctiva, nl lids Neck: other (tracheostomy midline) Respiratory: diminished breath sounds, other (R chest wall HD catheter intact) Cardiovascular: nl pulses, regular rate and rhythm Gastrointestinal: bowel sounds, other (G-tube in place with tube feeds), soft Genitourinary - Female: other (Leonard catheter intact) Musculoskeletal: swelling Extremities: edema Neurological: alert. Nods to simple questions. Skin: wounds (see nurse note and photo in chart for details; R great toe tip eschar and dressing on R heel c/d/i) Results Result Diagram: 04/21/1715 04/21/17 0615 Results 24 hrs Laboratory Tests Test 04/20/17 13:15 04/20/17 18:00 04/20/17 21:45 04/21/17 01:37 Bedside Glucose 125 88 75 107 Test 04/21/17 05:59 04/21/17 06:15 04/21/17 08:05 Bedside Glucose 155 167 White Blood Count 7.5 # Red Blood Count 2.75 L Hemoglobin 8.0 L Hematocrit 25.7 L Mean Corpuscular Volume 93.5 Mean Corpuscular Hemoglobin 29.1 Mean Corpuscular Hemoglobin Concent 31.1 L Red Cell Distribution Width 19.0 H Platelet Count 75 L Mean Platelet Volume 12.2 H Neutrophils % 83.3 H Lymphocytes % 10.4 L Monocytes % 4.7 Eosinophils % 0.0 Basophils % 0.1 Nucleated Red Blood Cells % 0.0 Neutrophils # 6.3 Lymphocytes # 0.8 Monocytes # 0.4 Eosinophils # 0.0 Basophils # 0.0 Nucleated Red Blood Cells # 0.0 Sodium Level 138 Potassium Level 4.1 Chloride Level 96 L Carbon Dioxide Level 28 Anion Gap 18 H Blood Urea Nitrogen 53 H Creatinine 1.78 H Glucose Level 147 Calcium Level 7.7 L Magnesium Level 2.0 Medications Medications Current Medications Atorvastatin Calcium (Lipitor) 20 mg QHS GTB Last administered on 04/20/17 21: 46; Admin Dose 20 MG; Start 04/08/17 at 21:00 Acetaminophen/ Hydrocodone Bitart ([place] (5/325)) 1 tab Q6H PRN GTB SEVERE PAIN LEVEL 7-10 Last administered on 04/13/17 19:59; Admin Dose 1 TAB; Start at 19:30 Albuterol/ Ipratropium (Duoneb) 3 ml Q2H PRN NEB SHORTNESS OF BREATH; Start at 19:30 Levothyroxine Sodium (Synthroid) 125 mcg DAILY@06 GTB Last administered on 06:39; Admin Dose 125 MCG; Start 04/09/17 at 06:00 Multivit/Ca Carb/ B Cmplx/FA/Prenat (Shayla-Anuradha) 1 tab DAILY GTB Last administered on 04/21/17 08:10; Admin Dose 1 TAB; Start 04/09/17 at 09:00 Quetiapine Fumarate (Seroquel) 25 mg BID GTB Last administered on 04/21/17 08: 10; Admin Dose 25 MG; Start 04/08/17 at 21:00 Trazodone HCl (Desyrel) 25 mg QHS PO Last administered on 04/20/17 21:46; Admin Dose 25 MG; Start 04/08/17 at 21:00 Acetaminophen (Tylenol Tab) 650 mg Q4H PRN PO PAIN AND OR ELEVATED TEMP; Start 04/08/17 at 19:30 Morphine Sulfate (morphine) 2 mg Q4H PRN IV PAIN LEVEL 8-10 Last administered on 04/21/17 11:29; Admin Dose 2 MG; Start 04/08/17 at 19:30 Miscellaneous Information 1 ea NOTE XX ; Start 04/08/17 at 20:00 Glucose (Glutose) 15 gm Q15M PRN PO DECREASED GLUCOSE; Start 04/08/17 at 20:00 Glucose (Glutose) 22.5 gm Q15M PRN PO DECREASED GLUCOSE; Start 04/08/17 at 20: 00 Dextrose (D50w Syringe) 25 ml Q15M PRN IV DECREASED GLUCOSE Last administered on 04/19/17 06:01; Admin Dose 25 ML; Start 04/08/17 at 20:00 Dextrose (D50w Syringe) 50 ml Q15M PRN IV DECREASED GLUCOSE; Start 04/08/17 at 20:00 Glucagon (Glucagen) 1 mg Q15M PRN IM DECREASED GLUCOSE; Start 04/08/17 at 20:00 Glucose (Glutose) 15 gm Q15M PRN BUCCAL DECREASED GLUCOSE; Start 04/08/17 at 20 :00 Collagenase (Santyl) 1 applic DAILY TOP Last administered on 04/21/17 08:11; Admin Dose 1 APPLIC; Start 04/09/17 at 14:00 Collagenase (Santyl) 1 applic DAILY PRN TOP WHEN SOILED; Start 04/09/17 at 13: 00 IV Flush (NS 10 ml) 10 ml PRN PRN IV FLUSH LINE; Start 04/10/17 at 16:30 Gentamicin Sulfate (Gentamicin Iv Per Pharmacy) GENTAMICIN PER PHARMACY NOTE XX ; Start 04/11/17 at 10:30 Metoclopramide HCl (Reglan Liq) 5 mg Q8 PO Last administered on 04/21/17 06:39 ; Admin Dose 5 MG; Start 04/12/17 at 08:30 Povidone Iodine (Povidone-Iodine) 1 applic DAILY TOP Last administered on 08:11; Admin Dose 1 APPLIC; Start 04/12/17 at 11:30 Insulin Aspart (Novolog Insulin Pen) NOVOLOG *MODERATE* ALGORI... Q4 SC Last administered on 04/21/17 08:16; Admin Dose 2 UNIT; Start 04/17/17 at 09:00 Insulin Detemir (Levemir) 8 unit BID SC Last administered on 04/21/17 08:15; Admin Dose 8 UNIT; Start 04/17/17 at 21:00 Acetaminophen (Tylenol Liquid) 650 mg Q6 PRN GTB PAIN AND OR ELEVATED TEMP Last administered on 04/21/17 08:17; Admin Dose 650 MG; Start 04/17/17 at 11:30 Lisinopril (Zestril) 5 mg DAILY GTB Last administered on 04/21/17 08:11; Admin Dose 5 MG; Start 04/21/17 at 09:00 Carvedilol (Coreg) 6.25 mg BID GTB Last administered on 04/20/17 21:46; Admin Dose 6.25 MG; Start 04/20/17 at 21:00 VARINDER JULES NP Apr 21, 2017 12:51
--- NOTE | 2017-04-21 13:28 | CONS ---
Date/Time of Note Date/Time of Note DATE: 04/21/17 TIME: 13:27 Consult Date/Type/Reason Admit Date/Time Apr 08, 2017 at 16:19 Initial Consult Date 04/09/17 Type of Consultation: Pulmonary Ordering Provider: IVAN MALLOY MD Subjective Patient comfortable denies shortness of breath. Continues mechanical ventilation Objective Vital Signs Date Time Temp Pulse Resp B/P Pulse Ox O2 Delivery O2 Flow Rate FiO2 04/21/17 12:09 91 04/21/17 11:42 30 04/21/17 11:41 98.5 18 85/44 94 04/19/17 18:38 Mechanical Ventilator Intake and Output 04/20/17 04/20/17 04/21/17 15:00 23:00 07:00 Intake Total 300 ml 500 ml 540 ml Output Total 1800 ml 5 ml Balance -1500 ml 500 ml 535 ml Exam PHYSICAL EXAMINATION GENERAL: Elderly lady on mechanical ventilation via tracheostomy appears comfortable at rest VITAL SIGNS: see below. HEENT: Pupils equal, round, and reactive to light. Tracheostomy site clean and intact. CARDIAC: S1, S2, 1/6 systolic ejection murmur CHEST: Diminished air entry bilaterally. ABDOMEN: Mildly distended. Bowel sounds present no guarding or rebound EXTREMITIES: No cyanosis, clubbing edema +1 NEUROLOGIC: Generalized weakness Results/Medications Result Diagram: 04/21/17 0615 04/21/17 0615 Results 24 hrs Laboratory Tests Test 04/20/17 18:00 04/20/17 21:45 04/21/17 01:37 04/21/17 05:59 Bedside Glucose 88 75 107 155 Test 04/21/17 06:15 04/21/17 08:05 04/21/17 12:40 White Blood Count 7.5 # Red Blood Count 2.75 L Hemoglobin 8.0 L Hematocrit 25.7 L Mean Corpuscular Volume 93.5 Mean Corpuscular Hemoglobin 29.1 Mean Corpuscular Hemoglobin Concent 31.1 L Red Cell Distribution Width 19.0 H Platelet Count 75 L Mean Platelet Volume 12.2 H Neutrophils % 83.3 H Lymphocytes % 10.4 L Monocytes % 4.7 Eosinophils % 0.0 Basophils % 0.1 Nucleated Red Blood Cells % 0.0 Neutrophils # 6.3 Lymphocytes # 0.8 Monocytes # 0.4 Eosinophils # 0.0 Basophils # 0.0 Nucleated Red Blood Cells # 0.0 Sodium Level 138 Potassium Level 4.1 Chloride Level 96 L Carbon Dioxide Level 28 Anion Gap 18 H Blood Urea Nitrogen 53 H Creatinine 1.78 H Glucose Level 147 Calcium Level 7.7 L Magnesium Level 2.0 Bedside Glucose 167 178 Medications Current Medications Atorvastatin Calcium (Lipitor) 20 mg QHS GTB Last administered on 04/20/17 21: 46; Admin Dose 20 MG; Start 04/08/17 at 21:00 Acetaminophen/ Hydrocodone Bitart ([place] (5/325)) 1 tab Q6H PRN GTB SEVERE PAIN LEVEL 7-10 Last administered on 04/13/17 19:59; Admin Dose 1 TAB; Start at 19:30 Albuterol/ Ipratropium (Duoneb) 3 ml Q2H PRN NEB SHORTNESS OF BREATH; Start at 19:30 Levothyroxine Sodium (Synthroid) 125 mcg DAILY@06 GTB Last administered on 06:39; Admin Dose 125 MCG; Start 04/09/17 at 06:00 Multivit/Ca Carb/ B Cmplx/FA/Prenat (Shayla-Anuradha) 1 tab DAILY GTB Last administered on 04/21/17 08:10; Admin Dose 1 TAB; Start 04/09/17 at 09:00 Quetiapine Fumarate (Seroquel) 25 mg BID GTB Last administered on 04/21/17 08: 10; Admin Dose 25 MG; Start 04/08/17 at 21:00 Trazodone HCl (Desyrel) 25 mg QHS PO Last administered on 04/20/17 21:46; Admin Dose 25 MG; Start 04/08/17 at 21:00 Acetaminophen (Tylenol Tab) 650 mg Q4H PRN PO PAIN AND OR ELEVATED TEMP; Start 04/08/17 at 19:30 Morphine Sulfate (morphine) 2 mg Q4H PRN IV PAIN LEVEL 8-10 Last administered on 04/21/17 11:29; Admin Dose 2 MG; Start 04/08/17 at 19:30 Miscellaneous Information 1 ea NOTE XX ; Start 04/08/17 at 20:00 Glucose (Glutose) 15 gm Q15M PRN PO DECREASED GLUCOSE; Start 04/08/17 at 20:00 Glucose (Glutose) 22.5 gm Q15M PRN PO DECREASED GLUCOSE; Start 04/08/17 at 20: 00 Dextrose (D50w Syringe) 25 ml Q15M PRN IV DECREASED GLUCOSE Last administered on 04/19/17 06:01; Admin Dose 25 ML; Start 04/08/17 at 20:00 Dextrose (D50w Syringe) 50 ml Q15M PRN IV DECREASED GLUCOSE; Start 04/08/17 at 20:00 Glucagon (Glucagen) 1 mg Q15M PRN IM DECREASED GLUCOSE; Start 04/08/17 at 20:00 Glucose (Glutose) 15 gm Q15M PRN BUCCAL DECREASED GLUCOSE; Start 04/08/17 at 20 :00 Collagenase (Santyl) 1 applic DAILY TOP Last administered on 04/21/17 08:11; Admin Dose 1 APPLIC; Start 04/09/17 at 14:00 Collagenase (Santyl) 1 applic DAILY PRN TOP WHEN SOILED; Start 04/09/17 at 13: 00 IV Flush (NS 10 ml) 10 ml PRN PRN IV FLUSH LINE; Start 04/10/17 at 16:30 Gentamicin Sulfate (Gentamicin Iv Per Pharmacy) GENTAMICIN PER PHARMACY NOTE XX ; Start 04/11/17 at 10:30 Metoclopramide HCl (Reglan Liq) 5 mg Q8 PO Last administered on 04/21/17 13:15 ; Admin Dose 5 MG; Start 04/12/17 at 08:30 Povidone Iodine (Povidone-Iodine) 1 applic DAILY TOP Last administered on 08:11; Admin Dose 1 APPLIC; Start 04/12/17 at 11:30 Insulin Aspart (Novolog Insulin Pen) NOVOLOG *MODERATE* ALGORI... Q4 SC Last administered on 04/21/17 12:43; Admin Dose 2 UNIT; Start 04/17/17 at 09:00 Insulin Detemir (Levemir) 8 unit BID SC Last administered on 04/21/17 08:15; Admin Dose 8 UNIT; Start 04/17/17 at 21:00 Acetaminophen (Tylenol Liquid) 650 mg Q6 PRN GTB PAIN AND OR ELEVATED TEMP Last administered on 04/21/17 08:17; Admin Dose 650 MG; Start 04/17/17 at 11:30 Lisinopril (Zestril) 5 mg DAILY GTB Last administered on 04/21/17 08:11; Admin Dose 5 MG; Start 04/21/17 at 09:00 Carvedilol (Coreg) 6.25 mg BID GTB Last administered on 04/20/17 21:46; Admin Dose 6.25 MG; Start 04/20/17 at 21:00 Assessment/Plan Chief Complaint/Hosp Course IMP: 1. Status post septic shock with klebsiella bacteremia 2. VDRF 3. ESRD on HD 4. CHF with tachycardia 5. Encephalopathy resolving RECS: 1. monitor off vasopressors 2. Continue HD/UF 3. Abx per ID 4. Continue tube feeding as tolerated Consider transfer back to alf facility. Problems: STEPHANIE BAIRES MD, [facility] Apr 21, 2017 13:28
--- NOTE | 2017-04-21 13:37 | CONS ---
Date/Time of Note Date/Time of Note DATE: 04/21/17 TIME: 13:34 Assessment/Plan Assessment/Plan Additional Assessment/Plan Nonsustained ventricular tachycardia Cardiomyopathy with ejection fraction 40% CAD with history of CABG Sepsis Kidney disease on hemodialysis -Telemetry reviewed with no further episodes of ventricular tachycardia. Maintain potassium above 4.0 and magnesium above 2.0. Blood pressure has been on the lower end, continue holding parameters on antihypertensives and if needed , would recommend decreasing dosing of Coreg and lisinopril if blood pressure remains low. Consultation Date/Type/Reason Admit Date/Time Apr 08, 2017 at 16:19 Initial Consult Date 04/09/17 Type of Consultation: cv Referring Provider: IVAN MALLOY MD 24 HR Interval Summary Free Text/Dictation Patient seen and examined. Denies shortness of breath, dizziness Exam/Review of Systems Vital Signs Vitals Vital Signs Date Time Temp Pulse Resp B/P Pulse Ox O2 Delivery O2 Flow Rate FiO2 04/21/17 12:09 91 04/21/17 11:42 30 04/21/17 11:41 98.5 18 85/44 94 04/19/17 18:38 Mechanical Ventilator Intake and Output 04/20/17 04/20/17 04/21/17 15:00 23:00 07:00 Intake Total 300 ml 500 ml 540 ml Output Total 1800 ml 5 ml Balance -1500 ml 500 ml 535 ml Exam No apparent distress, following commands Constitutional: alert, oriented Head: normocephalic Neck: other (Tracheostomy) Respiratory: other (Coarse breath sounds bilaterally, no wheezing) Cardiovascular: other (S1-S2 heard), regular rate and rhythm Gastrointestinal: bowel sounds, non-tender, soft Extremities: edema Results Result Diagram: 04/21/17 0615 04/21/17 0615 Results 24 hrs Laboratory Tests Test 04/20/17 18:00 04/20/17 21:45 04/21/17 01:37 04/21/17 05:59 Bedside Glucose 88 75 107 155 Test 04/21/17 06:15 04/21/17 08:05 04/21/17 12:40 White Blood Count 7.5 # Red Blood Count 2.75 L Hemoglobin 8.0 L Hematocrit 25.7 L Mean Corpuscular Volume 93.5 Mean Corpuscular Hemoglobin 29.1 Mean Corpuscular Hemoglobin Concent 31.1 L Red Cell Distribution Width 19.0 H Platelet Count 75 L Mean Platelet Volume 12.2 H Neutrophils % 83.3 H Lymphocytes % 10.4 L Monocytes % 4.7 Eosinophils % 0.0 Basophils % 0.1 Nucleated Red Blood Cells % 0.0 Neutrophils # 6.3 Lymphocytes # 0.8 Monocytes # 0.4 Eosinophils # 0.0 Basophils # 0.0 Nucleated Red Blood Cells # 0.0 Sodium Level 138 Potassium Level 4.1 Chloride Level 96 L Carbon Dioxide Level 28 Anion Gap 18 H Blood Urea Nitrogen 53 H Creatinine 1.78 H Glucose Level 147 Calcium Level 7.7 L Magnesium Level 2.0 Bedside Glucose 167 178 Medications Medications Current Medications Atorvastatin Calcium (Lipitor) 20 mg QHS GTB Last administered on 04/20/17 21: 46; Admin Dose 20 MG; Start 04/08/17 at 21:00 Acetaminophen/ Hydrocodone Bitart ([place] (5/325)) 1 tab Q6H PRN GTB SEVERE PAIN LEVEL 7-10 Last administered on 04/13/17 19:59; Admin Dose 1 TAB; Start at 19:30 Albuterol/ Ipratropium (Duoneb) 3 ml Q2H PRN NEB SHORTNESS OF BREATH; Start at 19:30 Levothyroxine Sodium (Synthroid) 125 mcg DAILY@06 GTB Last administered on 06:39; Admin Dose 125 MCG; Start 04/09/17 at 06:00 Multivit/Ca Carb/ B Cmplx/FA/Prenat (Shayla-Anuradha) 1 tab DAILY GTB Last administered on 04/21/17 08:10; Admin Dose 1 TAB; Start 04/09/17 at 09:00 Quetiapine Fumarate (Seroquel) 25 mg BID GTB Last administered on 04/21/17 08: 10; Admin Dose 25 MG; Start 04/08/17 at 21:00 Trazodone HCl (Desyrel) 25 mg QHS PO Last administered on 04/20/17 21:46; Admin Dose 25 MG; Start 04/08/17 at 21:00 Acetaminophen (Tylenol Tab) 650 mg Q4H PRN PO PAIN AND OR ELEVATED TEMP; Start 04/08/17 at 19:30 Morphine Sulfate (morphine) 2 mg Q4H PRN IV PAIN LEVEL 8-10 Last administered on 04/21/17 11:29; Admin Dose 2 MG; Start 04/08/17 at 19:30 Miscellaneous Information 1 ea NOTE XX ; Start 04/08/17 at 20:00 Glucose (Glutose) 15 gm Q15M PRN PO DECREASED GLUCOSE; Start 04/08/17 at 20:00 Glucose (Glutose) 22.5 gm Q15M PRN PO DECREASED GLUCOSE; Start 04/08/17 at 20: 00 Dextrose (D50w Syringe) 25 ml Q15M PRN IV DECREASED GLUCOSE Last administered on 04/19/17 06:01; Admin Dose 25 ML; Start 04/08/17 at 20:00 Dextrose (D50w Syringe) 50 ml Q15M PRN IV DECREASED GLUCOSE; Start 04/08/17 at 20:00 Glucagon (Glucagen) 1 mg Q15M PRN IM DECREASED GLUCOSE; Start 04/08/17 at 20:00 Glucose (Glutose) 15 gm Q15M PRN BUCCAL DECREASED GLUCOSE; Start 04/08/17 at 20 :00 Collagenase (Santyl) 1 applic DAILY TOP Last administered on 04/21/17 08:11; Admin Dose 1 APPLIC; Start 04/09/17 at 14:00 Collagenase (Santyl) 1 applic DAILY PRN TOP WHEN SOILED; Start 04/09/17 at 13: 00 IV Flush (NS 10 ml) 10 ml PRN PRN IV FLUSH LINE; Start 04/10/17 at 16:30 Gentamicin Sulfate (Gentamicin Iv Per Pharmacy) GENTAMICIN PER PHARMACY NOTE XX ; Start 04/11/17 at 10:30 Metoclopramide HCl (Reglan Liq) 5 mg Q8 PO Last administered on 04/21/17 13:15 ; Admin Dose 5 MG; Start 04/12/17 at 08:30 Povidone Iodine (Povidone-Iodine) 1 applic DAILY TOP Last administered on 08:11; Admin Dose 1 APPLIC; Start 04/12/17 at 11:30 Insulin Aspart (Novolog Insulin Pen) NOVOLOG *MODERATE* ALGORI... Q4 SC Last administered on 04/21/17 12:43; Admin Dose 2 UNIT; Start 04/17/17 at 09:00 Insulin Detemir (Levemir) 8 unit BID SC Last administered on 04/21/17 08:15; Admin Dose 8 UNIT; Start 04/17/17 at 21:00 Acetaminophen (Tylenol Liquid) 650 mg Q6 PRN GTB PAIN AND OR ELEVATED TEMP Last administered on 04/21/17 08:17; Admin Dose 650 MG; Start 04/17/17 at 11:30 Lisinopril (Zestril) 5 mg DAILY GTB Last administered on 04/21/17 08:11; Admin Dose 5 MG; Start 04/21/17 at 09:00 Carvedilol (Coreg) 6.25 mg BID GTB Last administered on 04/20/17 21:46; Admin Dose 6.25 MG; Start 04/20/17 at 21:00 Biju Mcdaniels DO Apr 21, 2017 13:36
--- NOTE | 2017-04-21 14:43 | PN ---
Date/Time of Note Date/Time of Note DATE: 04/21/17 TIME: 14:41 Assessment/Plan VTE Prophylaxis VTE Prophylaxis Intervention: other Lines/Catheters IV [facility] Type (from [facility] Mid Line Urinary Cath still in place: Yes Assessment/Plan Assessment/Plan 1. Septic shock with Klebsiella bacteremia. Continue antibiotics per ID. Dr. Thurston group is following in infection disease consultation. 2. Acute respiratory failure. Continue ventilatory support. 3. Diabetes mellitus. Continue Levemir and NovoLog. 4. Systolic heart failure. Continue hemodialysis for fluid removal. 5. End-stage renal disease. Continue hemodialysis. 6. Anoxic encephalopathy. No acute issues. 7. Anemia of chronic disease. Continue Epogen. 8. Hypothyroidism. Continue Synthroid. 9. Dyslipidemia. Continue Lipitor. 10. Possible history of psychosis. Continue Seroquel and trazodone. Further recommendations based on clinical course. Plan of care discussed with Dr. Guerrero. Exam/Review of Systems Vital Signs Vitals Vital Signs Date Time Temp Pulse Resp B/P Pulse Ox O2 Delivery O2 Flow Rate FiO2 04/21/17 14:33 107/54 04/21/17 13:15 78 18 97 30 04/21/17 11:41 98.5 04/19/17 18:38 Mechanical Ventilator Intake and Output 04/20/17 04/20/17 04/21/17 14:59 22:59 06:59 Intake Total 300 ml 500 ml 540 ml Output Total 1800 ml 5 ml Balance -1500 ml 500 ml 535 ml Exam Constitutional: alert, well developed Respiratory: clear to auscultation, normal air movement Cardiovascular: nl pulses, regular rate and rhythm Gastrointestinal: non-tender, soft Musculoskeletal: nl extremities to inspection Extremities: normal pulses Results Result Diagram: 04/21/17 0615 04/21/17 0615 Results 24 hrs Laboratory Tests Test 04/20/17 18:00 04/20/17 21:45 04/21/17 01:37 04/21/17 05:59 Bedside Glucose 88 75 107 155 Test 04/21/17 06:15 04/21/17 08:05 04/21/17 12:40 White Blood Count 7.5 # Red Blood Count 2.75 L Hemoglobin 8.0 L Hematocrit 25.7 L Mean Corpuscular Volume 93.5 Mean Corpuscular Hemoglobin 29.1 Mean Corpuscular Hemoglobin Concent 31.1 L Red Cell Distribution Width 19.0 H Platelet Count 75 L Mean Platelet Volume 12.2 H Neutrophils % 83.3 H Lymphocytes % 10.4 L Monocytes % 4.7 Eosinophils % 0.0 Basophils % 0.1 Nucleated Red Blood Cells % 0.0 Neutrophils # 6.3 Lymphocytes # 0.8 Monocytes # 0.4 Eosinophils # 0.0 Basophils # 0.0 Nucleated Red Blood Cells # 0.0 Sodium Level 138 Potassium Level 4.1 Chloride Level 96 L Carbon Dioxide Level 28 Anion Gap 18 H Blood Urea Nitrogen 53 H Creatinine 1.78 H Glucose Level 147 Calcium Level 7.7 L Magnesium Level 2.0 Bedside Glucose 167 178 Medications Medications Current Medications Atorvastatin Calcium (Lipitor) 20 mg QHS GTB Last administered on 04/20/17 21: 46; Admin Dose 20 MG; Start 04/08/17 at 21:00 Acetaminophen/ Hydrocodone Bitart ([place] (5/325)) 1 tab Q6H PRN GTB SEVERE PAIN LEVEL 7-10 Last administered on 04/13/17 19:59; Admin Dose 1 TAB; Start at 19:30 Albuterol/ Ipratropium (Duoneb) 3 ml Q2H PRN NEB SHORTNESS OF BREATH; Start at 19:30 Levothyroxine Sodium (Synthroid) 125 mcg DAILY@06 GTB Last administered on 06:39; Admin Dose 125 MCG; Start 04/09/17 at 06:00 Multivit/Ca Carb/ B Cmplx/FA/Prenat (Shayla-Anuradha) 1 tab DAILY GTB Last administered on 04/21/17 08:10; Admin Dose 1 TAB; Start 04/09/17 at 09:00 Quetiapine Fumarate (Seroquel) 25 mg BID GTB Last administered on 04/21/17 08: 10; Admin Dose 25 MG; Start 04/08/17 at 21:00 Trazodone HCl (Desyrel) 25 mg QHS PO Last administered on 04/20/17 21:46; Admin Dose 25 MG; Start 04/08/17 at 21:00 Acetaminophen (Tylenol Tab) 650 mg Q4H PRN PO PAIN AND OR ELEVATED TEMP; Start 04/08/17 at 19:30 Morphine Sulfate (morphine) 2 mg Q4H PRN IV PAIN LEVEL 8-10 Last administered on 04/21/17 11:29; Admin Dose 2 MG; Start 04/08/17 at 19:30 Miscellaneous Information 1 ea NOTE XX ; Start 04/08/17 at 20:00 Glucose (Glutose) 15 gm Q15M PRN PO DECREASED GLUCOSE; Start 04/08/17 at 20:00 Glucose (Glutose) 22.5 gm Q15M PRN PO DECREASED GLUCOSE; Start 04/08/17 at 20: 00 Dextrose (D50w Syringe) 25 ml Q15M PRN IV DECREASED GLUCOSE Last administered on 04/19/17 06:01; Admin Dose 25 ML; Start 04/08/17 at 20:00 Dextrose (D50w Syringe) 50 ml Q15M PRN IV DECREASED GLUCOSE; Start 04/08/17 at 20:00 Glucagon (Glucagen) 1 mg Q15M PRN IM DECREASED GLUCOSE; Start 04/08/17 at 20:00 Glucose (Glutose) 15 gm Q15M PRN BUCCAL DECREASED GLUCOSE; Start 04/08/17 at 20 :00 Collagenase (Santyl) 1 applic DAILY TOP Last administered on 04/21/17 08:11; Admin Dose 1 APPLIC; Start 04/09/17 at 14:00 Collagenase (Santyl) 1 applic DAILY PRN TOP WHEN SOILED; Start 04/09/17 at 13: 00 IV Flush (NS 10 ml) 10 ml PRN PRN IV FLUSH LINE; Start 04/10/17 at 16:30 Gentamicin Sulfate (Gentamicin Iv Per Pharmacy) GENTAMICIN PER PHARMACY NOTE XX ; Start 04/11/17 at 10:30 Metoclopramide HCl (Reglan Liq) 5 mg Q8 PO Last administered on 04/21/17 13:15 ; Admin Dose 5 MG; Start 04/12/17 at 08:30 Povidone Iodine (Povidone-Iodine) 1 applic DAILY TOP Last administered on 08:11; Admin Dose 1 APPLIC; Start 04/12/17 at 11:30 Insulin Aspart (Novolog Insulin Pen) NOVOLOG *MODERATE* ALGORI... Q4 SC Last administered on 04/21/17 12:43; Admin Dose 2 UNIT; Start 04/17/17 at 09:00 Insulin Detemir (Levemir) 8 unit BID SC Last administered on 04/21/17 08:15; Admin Dose 8 UNIT; Start 04/17/17 at 21:00 Acetaminophen (Tylenol Liquid) 650 mg Q6 PRN GTB PAIN AND OR ELEVATED TEMP Last administered on 04/21/17 08:17; Admin Dose 650 MG; Start 04/17/17 at 11:30 Lisinopril (Zestril) 5 mg DAILY GTB Last administered on 04/21/17 08:11; Admin Dose 5 MG; Start 04/21/17 at 09:00 Carvedilol (Coreg) 6.25 mg BID GTB Last administered on 04/20/17 21:46; Admin Dose 6.25 MG; Start 04/20/17 at 21:00 VIRGINIA RODARTE Apr 21, 2017 14:43
[2017-04-21] MEDS ORDERED: SOD CHLORIDE 0.9% 250 ML IV* ONE (14:58)
[2017-04-21] MEDS ORDERED: SOD CHLORIDE 0.9% 250 ML IV ONE (21:30)
[2017-04-21] MEDS: traZODone 50 MG TAB PO SCH (21:34)
[2017-04-21] MEDS: ATORVASTATIN 20 MG TAB GTB SCH (21:34)
[2017-04-22] VITALS (31 sets, daily range): BP systolic 86–114; BP diastolic 41–59; PULSE 74–95; RESP 14–19
[2017-04-22] MEDS: ACETAMINOPHEN 650MG/20.3ML CUP GTB PRN (00:39)
[2017-04-22] MEDS: INSULIN ASPART [NOVOLOG] 3 ML PEN SC SCH ×6 (01:13→21:00)
[2017-04-22] MEDS: HYDROCODONE/APAP (5/325) TAB GTB PRN ×3 (03:02→23:35)
[2017-04-22] MEDS: METOCLOPRAMIDE (1 MG/ML) 10 ML CUP PO SCH ×3 (05:31→21:26)
[2017-04-22] MEDS: LEVOTHYROXINE 125 MCG TAB GTB SCH (05:31)
[2017-04-22 06:18] LABS: ADD SCAN DIFF NO
[2017-04-22 06:35] LABS: ABNORMAL IP MESSAGE 1; HEMATOCRIT 27.7 % (37.0-47.0); HEMOGLOBIN 8.9 g/dl (12.0-16.0); LYMPHOCYTES # 0.8 10^3/ul (0.8-2.9); LYMPHOCYTES % 7.1 % (15.0-51.0); MEAN CORPUSCULAR HEMOGLOBIN 29.7 pg (29.0-33.0); MEAN CORPUSCULAR HGB CONC 32.1 g/dl (32.0-37.0); MEAN CORPUSCULAR VOLUME 92.3 fl (82.0-101.0); MEAN PLATELET VOLUME 12.3 fl (7.4-10.4); MONOCYTE # 0.4 10^3/ul (0.3-0.9); MONOCYTES % 3.8 % (0.0-11.0); NEUTROPHIL # 9.7 10^3/ul (1.6-7.5); NEUTROPHILS % 88.2 % (39.0-77.0); PLATELET COUNT 74 10^3/UL (140-415); RED CELL DISTRIBUTION WIDTH 17.9 % (11.5-14.5)
[2017-04-22 06:51] LABS: CALCIUM 7.1 mg/dl (8.4-10.2); CREATININE 2.38 mg/dl (0.44-1.00)
[2017-04-22] MEDS: LANSOPRAZOLE 30 MG CAP GTB SCH ×2 (08:47→16:37)
[2017-04-22] MEDS: QUETIAPINE 25 MG TAB GTB SCH ×2 (08:47→21:13)
[2017-04-22] MEDS: MULTIVIT/CA CARB/B CMPLX/FA TAB GTB SCH (08:47)
[2017-04-22] MEDS: POVIDONE IODINE 10% 28.4 GM OINT TOP SCH (08:48)
[2017-04-22] MEDS: LISINOPRIL 5 MG TAB GTB SCH (08:48)
[2017-04-22] MEDS: COLLAGENASE 30 GM TUBE TOP SCH (08:49)
[2017-04-22] MEDS: INSULIN DETEMIR [LEVEMIR] 3ML CART SC SCH ×2 (08:54→21:25)
--- NOTE | 2017-04-22 09:28 | PN ---
Date/Time of Note Date/Time of Note DATE: 04/22/17 TIME: 09:27 Assessment/Plan Lines/Catheters IV Catheter Type (from [facility]): Mid Line Urinary Cath still in place: Yes Assessment/Plan Chief Complaint/Hosp Course 1. End-stage renal disease. The patient is receiving daily dialysis for solute clearance and volume removal. - Plan for hemodialysis today for 3 hours 2. Anemia of chronic disease. With GI bleeding. continue to monitor hemoglobin and hematocrit levels. -We will transfuse to keep hemoglobin above 8 3. Mineral bone disorder. Monitor calcium phosphorus levels 4. Hyponatremia secondary to end-stage renal disease. Limit free water. HD 140 sodium bath 5. Hypokalemia, - replete with potassium chloride 6. Septic shock, etiology is multifactorial secondary to urinary tract infection and pneumonia. Continue current broad spectrum antibiotics, continue pressor support. 7. Ventilator dependent respiratory failure. Vent settings have been reviewed. ABG have been reviewed. Continue to monitor. 8. Dysphagia status post percutaneous endoscopic gastrostomy. Continue tube feeding. 9. History of coronary artery disease. 10. Diabetes. Continue Accu-Cheks and sliding scale. 11. Hypothyroidism. Continue Synthroid. 12. History of anal cancer. 13. Acute on chronic encephalopathy, etiology is toxic metabolic. Continue to monitor. 14. Volume overload secondary to congestive heart failure, end-stage renal disease. Continue ultrafiltration with dialysis. Problems: Subjective 24 Hr Interval Summary Free Text/Dictation Patient seen and examined. Stable. Pending hemodialysis Exam/Review of Systems Vital Signs Vitals Vital Signs Date Time Temp Pulse Resp B/P Pulse Ox O2 Delivery O2 Flow Rate FiO2 04/22/17 08:12 75 04/22/17 07:51 14 99 30 04/22/17 07:32 98.3 95/41 04/19/17 18:38 Mechanical Ventilator Intake and Output 04/21/17 04/21/17 04/22/17 15:00 23:00 07:00 Intake Total 490 ml 540 ml Output Total 100 ml 0 ml Balance 390 ml 540 ml Exam HEENT: Head is normocephalic. Pupils are reactive to light. NECK: Supple. HEART: Regular rate. LUNGS: Show diminished breath sounds at base. ABDOMEN: Soft, nontender to palpation. No rebound or guarding. EXTREMITIES: Negative for clubbing, cyanosis,. Positive edema. DERMATOLOGIC: No rashes. MUSCULOSKELETAL: No joint effusions. NEUROLOGIC: No change in exam. Results Result Diagram: 04/22/17 0540 04/22/17 0548 Results 24 hrs Laboratory Tests Test 04/21/17 12:40 04/21/17 16:36 04/21/17 21:31 04/22/17 01:06 Bedside Glucose 178 96 128 212 Test 04/22/17 05:30 04/22/17 05:40 04/22/17 05:48 04/22/17 07:14 Bedside Glucose 138 White Blood Count 11.0 #H Red Blood Count 3.00 L Hemoglobin 8.9 L Hematocrit 27.7 L Mean Corpuscular Volume 92.3 Mean Corpuscular Hemoglobin 29.7 Mean Corpuscular Hemoglobin Concent 32.1 Red Cell Distribution Width 17.9 H Platelet Count 74 L Mean Platelet Volume 12.3 H Neutrophils % 88.2 H Lymphocytes % 7.1 L Monocytes % 3.8 Eosinophils % 0.0 Basophils % 0.0 Nucleated Red Blood Cells % 0.0 Neutrophils # 9.7 H Lymphocytes # 0.8 Monocytes # 0.4 Eosinophils # 0.0 Basophils # 0.0 Nucleated Red Blood Cells # 0.0 Sodium Level 132 L Potassium Level 4.0 Chloride Level 98 Carbon Dioxide Level 27 Anion Gap 11 # Blood Urea Nitrogen 69 H Creatinine 2.38 H Glucose Level 131 Calcium Level 7.1 L Lab Scanned Report BLOOD TRANSFUSION Test 04/22/17 08:46 Bedside Glucose 152 Medications Medications Current Medications Atorvastatin Calcium (Lipitor) 20 mg QHS GTB Last administered on 04/21/17 21: 34; Admin Dose 20 MG; Start 04/08/17 at 21:00 Acetaminophen/ Hydrocodone Bitart ([place] (5/325)) 1 tab Q6H PRN GTB SEVERE PAIN LEVEL 7-10 Last administered on 04/22/17 03:02; Admin Dose 1 TAB; Start at 19:30 Albuterol/ Ipratropium (Duoneb) 3 ml Q2H PRN NEB SHORTNESS OF BREATH; Start at 19:30 Levothyroxine Sodium (Synthroid) 125 mcg DAILY@06 GTB Last administered on 05:31; Admin Dose 125 MCG; Start 04/09/17 at 06:00 Multivit/Ca Carb/ B Cmplx/FA/Prenat (Shayla-Anuradha) 1 tab DAILY GTB Last administered on 04/22/17 08:47; Admin Dose 1 TAB; Start 04/09/17 at 09:00 Quetiapine Fumarate (Seroquel) 25 mg BID GTB Last administered on 04/22/17 08: 47; Admin Dose 25 MG; Start 04/08/17 at 21:00 Trazodone HCl (Desyrel) 25 mg QHS PO Last administered on 04/21/17 21:34; Admin Dose 25 MG; Start 04/08/17 at 21:00 Acetaminophen (Tylenol Tab) 650 mg Q4H PRN PO PAIN AND OR ELEVATED TEMP; Start 04/08/17 at 19:30 Morphine Sulfate (morphine) 2 mg Q4H PRN IV PAIN LEVEL 8-10 Last administered on 04/21/17 11:29; Admin Dose 2 MG; Start 04/08/17 at 19:30 Miscellaneous Information 1 ea NOTE XX ; Start 04/08/17 at 20:00 Glucose (Glutose) 15 gm Q15M PRN PO DECREASED GLUCOSE; Start 04/08/17 at 20:00 Glucose (Glutose) 22.5 gm Q15M PRN PO DECREASED GLUCOSE; Start 04/08/17 at 20: 00 Dextrose (D50w Syringe) 25 ml Q15M PRN IV DECREASED GLUCOSE Last administered on 04/19/17 06:01; Admin Dose 25 ML; Start 04/08/17 at 20:00 Dextrose (D50w Syringe) 50 ml Q15M PRN IV DECREASED GLUCOSE; Start 04/08/17 at 20:00 Glucagon (Glucagen) 1 mg Q15M PRN IM DECREASED GLUCOSE; Start 04/08/17 at 20:00 Glucose (Glutose) 15 gm Q15M PRN BUCCAL DECREASED GLUCOSE; Start 04/08/17 at 20 :00 Collagenase (Santyl) 1 applic DAILY TOP Last administered on 04/22/17 08:49; Admin Dose 1 APPLIC; Start 04/09/17 at 14:00 Collagenase (Santyl) 1 applic DAILY PRN TOP WHEN SOILED; Start 04/09/17 at 13: 00 IV Flush (NS 10 ml) 10 ml PRN PRN IV FLUSH LINE; Start 04/10/17 at 16:30 Gentamicin Sulfate (Gentamicin Iv Per Pharmacy) GENTAMICIN PER PHARMACY NOTE XX ; Start 04/11/17 at 10:30 Metoclopramide HCl (Reglan Liq) 5 mg Q8 PO Last administered on 04/22/17 05:31 ; Admin Dose 5 MG; Start 04/12/17 at 08:30 Povidone Iodine (Povidone-Iodine) 1 applic DAILY TOP Last administered on 08:48; Admin Dose 1 APPLIC; Start 04/12/17 at 11:30 Insulin Aspart (Novolog Insulin Pen) NOVOLOG *MODERATE* ALGORI... Q4 SC Last administered on 04/22/17 08:53; Admin Dose 2 UNIT; Start 04/17/17 at 09:00 Insulin Detemir (Levemir) 8 unit BID SC Last administered on 04/22/17 08:54; Admin Dose 8 UNIT; Start 04/17/17 at 21:00 Acetaminophen (Tylenol Liquid) 650 mg Q6 PRN GTB PAIN AND OR ELEVATED TEMP Last administered on 04/22/17 00:39; Admin Dose 650 MG; Start 04/17/17 at 11:30 Lisinopril (Zestril) 5 mg DAILY GTB Last administered on 04/21/17 08:11; Admin Dose 5 MG; Start 04/21/17 at 09:00 Carvedilol (Coreg) 6.25 mg BID GTB Last administered on 04/20/17 21:46; Admin Dose 6.25 MG; Start 04/20/17 at 21:00 ANJELICA SANCHEZ DO Apr 22, 2017 09:28
--- NOTE | 2017-04-22 12:14 | CONS ---
Date/Time of Note Date/Time of Note DATE: 04/22/17 TIME: 12:13 Assessment/Plan Assessment/Plan Additional Assessment/Plan Nonsustained ventricular tachycardia Cardiomyopathy with ejection fraction 40% CAD with history of CABG Sepsis Kidney disease on hemodialysis -Telemetry reviewed with no further episodes of ventricular tachycardia. Maintain potassium above 4.0 and magnesium above 2.0. Blood pressure has been on the lower end, continue holding parameters on antihypertensives and will decrease dose. Consultation Date/Type/Reason Admit Date/Time Apr 08, 2017 at 16:19 Initial Consult Date 04/09/17 Type of Consultation: cv Referring Provider: IVAN MALLOY MD 24 HR Interval Summary Free Text/Dictation Patient seen and examined, denies chest pain, palpitations or shortness of breath Exam/Review of Systems Vital Signs Vitals Vital Signs Date Time Temp Pulse Resp B/P Pulse Ox O2 Delivery O2 Flow Rate FiO2 04/22/17 12:11 74 04/22/17 11:27 97.8 18 94/42 99 04/22/17 11:20 30 04/19/17 18:38 Mechanical Ventilator Intake and Output 04/21/17 04/21/17 04/22/17 15:00 23:00 07:00 Intake Total 490 ml 540 ml Output Total 100 ml 0 ml Balance 390 ml 540 ml Exam Sleeping but arousable, no apparent distress Head: normocephalic Neck: other (Tracheostomy) Respiratory: other (Coarse breath sounds bilaterally, no wheezing) Cardiovascular: other (S1-S2 heard), regular rate and rhythm Gastrointestinal: bowel sounds, non-tender, soft Extremities: edema Results Result Diagram: 04/22/17 0540 04/22/17 0548 Results 24 hrs Laboratory Tests Test 04/21/17 12:40 04/21/17 16:36 04/21/17 21:31 04/22/17 01:06 Bedside Glucose 178 96 128 212 Test 04/22/17 05:30 04/22/17 05:40 04/22/17 05:48 04/22/17 07:14 Bedside Glucose 138 White Blood Count 11.0 #H Red Blood Count 3.00 L Hemoglobin 8.9 L Hematocrit 27.7 L Mean Corpuscular Volume 92.3 Mean Corpuscular Hemoglobin 29.7 Mean Corpuscular Hemoglobin Concent 32.1 Red Cell Distribution Width 17.9 H Platelet Count 74 L Mean Platelet Volume 12.3 H Neutrophils % 88.2 H Lymphocytes % 7.1 L Monocytes % 3.8 Eosinophils % 0.0 Basophils % 0.0 Nucleated Red Blood Cells % 0.0 Neutrophils # 9.7 H Lymphocytes # 0.8 Monocytes # 0.4 Eosinophils # 0.0 Basophils # 0.0 Nucleated Red Blood Cells # 0.0 Sodium Level 132 L Potassium Level 4.0 Chloride Level 98 Carbon Dioxide Level 27 Anion Gap 11 # Blood Urea Nitrogen 69 H Creatinine 2.38 H Glucose Level 131 Calcium Level 7.1 L Lab Scanned Report BLOOD TRANSFUSION Test 04/22/17 08:46 Bedside Glucose 152 Medications Medications Current Medications Atorvastatin Calcium (Lipitor) 20 mg QHS GTB Last administered on 04/21/17 21: 34; Admin Dose 20 MG; Start 04/08/17 at 21:00 Acetaminophen/ Hydrocodone Bitart ([place] (5/325)) 1 tab Q6H PRN GTB SEVERE PAIN LEVEL 7-10 Last administered on 04/22/17 03:02; Admin Dose 1 TAB; Start at 19:30 Albuterol/ Ipratropium (Duoneb) 3 ml Q2H PRN NEB SHORTNESS OF BREATH; Start at 19:30 Levothyroxine Sodium (Synthroid) 125 mcg DAILY@06 GTB Last administered on 05:31; Admin Dose 125 MCG; Start 04/09/17 at 06:00 Multivit/Ca Carb/ B Cmplx/FA/Prenat (Shayla-Anuradha) 1 tab DAILY GTB Last administered on 04/22/17 08:47; Admin Dose 1 TAB; Start 04/09/17 at 09:00 Quetiapine Fumarate (Seroquel) 25 mg BID GTB Last administered on 04/22/17 08: 47; Admin Dose 25 MG; Start 04/08/17 at 21:00 Trazodone HCl (Desyrel) 25 mg QHS PO Last administered on 04/21/17 21:34; Admin Dose 25 MG; Start 04/08/17 at 21:00 Acetaminophen (Tylenol Tab) 650 mg Q4H PRN PO PAIN AND OR ELEVATED TEMP; Start 04/08/17 at 19:30 Morphine Sulfate (morphine) 2 mg Q4H PRN IV PAIN LEVEL 8-10 Last administered on 04/21/17 11:29; Admin Dose 2 MG; Start 04/08/17 at 19:30 Miscellaneous Information 1 ea NOTE XX ; Start 04/08/17 at 20:00 Glucose (Glutose) 15 gm Q15M PRN PO DECREASED GLUCOSE; Start 04/08/17 at 20:00 Glucose (Glutose) 22.5 gm Q15M PRN PO DECREASED GLUCOSE; Start 04/08/17 at 20: 00 Dextrose (D50w Syringe) 25 ml Q15M PRN IV DECREASED GLUCOSE Last administered on 04/19/17 06:01; Admin Dose 25 ML; Start 04/08/17 at 20:00 Dextrose (D50w Syringe) 50 ml Q15M PRN IV DECREASED GLUCOSE; Start 04/08/17 at 20:00 Glucagon (Glucagen) 1 mg Q15M PRN IM DECREASED GLUCOSE; Start 04/08/17 at 20:00 Glucose (Glutose) 15 gm Q15M PRN BUCCAL DECREASED GLUCOSE; Start 04/08/17 at 20 :00 Collagenase (Santyl) 1 applic DAILY TOP Last administered on 04/22/17 08:49; Admin Dose 1 APPLIC; Start 04/09/17 at 14:00 Collagenase (Santyl) 1 applic DAILY PRN TOP WHEN SOILED; Start 04/09/17 at 13: 00 IV Flush (NS 10 ml) 10 ml PRN PRN IV FLUSH LINE; Start 04/10/17 at 16:30 Gentamicin Sulfate (Gentamicin Iv Per Pharmacy) GENTAMICIN PER PHARMACY NOTE XX ; Start 04/11/17 at 10:30 Metoclopramide HCl (Reglan Liq) 5 mg Q8 PO Last administered on 04/22/17 05:31 ; Admin Dose 5 MG; Start 04/12/17 at 08:30 Povidone Iodine (Povidone-Iodine) 1 applic DAILY TOP Last administered on 08:48; Admin Dose 1 APPLIC; Start 04/12/17 at 11:30 Insulin Aspart (Novolog Insulin Pen) NOVOLOG *MODERATE* ALGORI... Q4 SC Last administered on 04/22/17 08:53; Admin Dose 2 UNIT; Start 04/17/17 at 09:00 Insulin Detemir (Levemir) 8 unit BID SC Last administered on 04/22/17 08:54; Admin Dose 8 UNIT; Start 04/17/17 at 21:00 Acetaminophen (Tylenol Liquid) 650 mg Q6 PRN GTB PAIN AND OR ELEVATED TEMP Last administered on 04/22/17 00:39; Admin Dose 650 MG; Start 04/17/17 at 11:30 Lisinopril (Zestril) 5 mg DAILY GTB Last administered on 04/21/17 08:11; Admin Dose 5 MG; Start 04/21/17 at 09:00 Carvedilol (Coreg) 6.25 mg BID GTB Last administered on 04/20/17 21:46; Admin Dose 6.25 MG; Start 04/20/17 at 21:00 Biju Mcdaniels DO Apr 22, 2017 12:14
--- NOTE | 2017-04-22 14:50 | PN ---
Date/Time of Note Date/Time of Note DATE: 04/22/17 TIME: 14:44 Assessment/Plan VTE Prophylaxis VTE Prophylaxis Intervention: SCD's Lines/Catheters IV C[facility]ter Type (from [facility] Mid Line Central line still needed: Yes Urinary Cath still in place: Yes Reason Cath still needed: urinary retention Assessment/Plan Chief Complaint/Hosp Course Patient remains hemodynamically stable, currently undergoing hemodialysis, blood sugar is well controlled, patient is awake alert. Assessment/Plan - Septic shock with Klebsiella bacteremia. Continue antibiotics per ID. Dr. Thurston group is following in infection disease consultation. - Acute respiratory failure. Continue ventilatory support. - Diabetes mellitus. Continue Levemir and NovoLog. - Systolic heart failure. Continue hemodialysis for fluid removal. - End-stage renal disease. Continue hemodialysis. - Anoxic encephalopathy. No acute issues. - Anemia of chronic disease. Continue Epogen. - Hypothyroidism. Continue Synthroid. - Dyslipidemia. Continue Lipitor. - Possible history of psychosis. Continue Seroquel and trazodone. Further recommendations based on clinical course. Plan of care discussed with Dr. Guerrero. Problems: Exam/Review of Systems Vital Signs Vitals Vital Signs Date Time Temp Pulse Resp B/P Pulse Ox O2 Delivery O2 Flow Rate FiO2 04/22/17 13:15 77 14 98 30 04/22/17 11:27 97.8 94/42 04/19/17 18:38 Mechanical Ventilator Intake and Output 04/21/17 04/21/17 04/22/17 15:00 23:00 07:00 Intake Total 490 ml 540 ml Output Total 100 ml 0 ml Balance 390 ml 540 ml Exam Constitutional: alert Head: normocephalic Neck: other (Tracheostomy), supple Respiratory: diminished breath sounds Cardiovascular: nl pulses Gastrointestinal: non-tender, other (GT), soft Extremities: normal pulses Neurological: nl mental status Results Result Diagram: 04/22/17 0540 04/22/17 0548 Results 24 hrs Laboratory Tests Test 04/21/17 16:36 04/21/17 21:31 04/22/17 01:06 04/22/17 05:30 Bedside Glucose 96 128 212 138 Test 04/22/17 05:40 04/22/17 05:48 04/22/17 07:14 04/22/17 08:46 White Blood Count 11.0 #H Red Blood Count 3.00 L Hemoglobin 8.9 L Hematocrit 27.7 L Mean Corpuscular Volume 92.3 Mean Corpuscular Hemoglobin 29.7 Mean Corpuscular Hemoglobin Concent 32.1 Red Cell Distribution Width 17.9 H Platelet Count 74 L Mean Platelet Volume 12.3 H Neutrophils % 88.2 H Lymphocytes % 7.1 L Monocytes % 3.8 Eosinophils % 0.0 Basophils % 0.0 Nucleated Red Blood Cells % 0.0 Neutrophils # 9.7 H Lymphocytes # 0.8 Monocytes # 0.4 Eosinophils # 0.0 Basophils # 0.0 Nucleated Red Blood Cells # 0.0 Sodium Level 132 L Potassium Level 4.0 Chloride Level 98 Carbon Dioxide Level 27 Anion Gap 11 # Blood Urea Nitrogen 69 H Creatinine 2.38 H Glucose Level 131 Calcium Level 7.1 L Lab Scanned Report BLOOD TRANSFUSION Bedside Glucose 152 Test 04/22/17 12:56 Bedside Glucose 194 Medications Medications Current Medications Atorvastatin Calcium (Lipitor) 20 mg QHS GTB Last administered on 04/21/17 21: 34; Admin Dose 20 MG; Start 04/08/17 at 21:00 Acetaminophen/ Hydrocodone Bitart ([place] (5/325)) 1 tab Q6H PRN GTB SEVERE PAIN LEVEL 7-10 Last administered on 04/22/17 03:02; Admin Dose 1 TAB; Start at 19:30 Albuterol/ Ipratropium (Duoneb) 3 ml Q2H PRN NEB SHORTNESS OF BREATH; Start at 19:30 Levothyroxine Sodium (Synthroid) 125 mcg DAILY@06 GTB Last administered on 05:31; Admin Dose 125 MCG; Start 04/09/17 at 06:00 Multivit/Ca Carb/ B Cmplx/FA/Prenat (Shayla-Anuradha) 1 tab DAILY GTB Last administered on 04/22/17 08:47; Admin Dose 1 TAB; Start 04/09/17 at 09:00 Quetiapine Fumarate (Seroquel) 25 mg BID GTB Last administered on 04/22/17 08: 47; Admin Dose 25 MG; Start 04/08/17 at 21:00 Trazodone HCl (Desyrel) 25 mg QHS PO Last administered on 04/21/17 21:34; Admin Dose 25 MG; Start 04/08/17 at 21:00 Acetaminophen (Tylenol Tab) 650 mg Q4H PRN PO PAIN AND OR ELEVATED TEMP; Start 04/08/17 at 19:30 Morphine Sulfate (morphine) 2 mg Q4H PRN IV PAIN LEVEL 8-10 Last administered on 04/21/17 11:29; Admin Dose 2 MG; Start 04/08/17 at 19:30 Miscellaneous Information 1 ea NOTE XX ; Start 04/08/17 at 20:00 Glucose (Glutose) 15 gm Q15M PRN PO DECREASED GLUCOSE; Start 04/08/17 at 20:00 Glucose (Glutose) 22.5 gm Q15M PRN PO DECREASED GLUCOSE; Start 04/08/17 at 20: 00 Dextrose (D50w Syringe) 25 ml Q15M PRN IV DECREASED GLUCOSE Last administered on 04/19/17 06:01; Admin Dose 25 ML; Start 04/08/17 at 20:00 Dextrose (D50w Syringe) 50 ml Q15M PRN IV DECREASED GLUCOSE; Start 04/08/17 at 20:00 Glucagon (Glucagen) 1 mg Q15M PRN IM DECREASED GLUCOSE; Start 04/08/17 at 20:00 Glucose (Glutose) 15 gm Q15M PRN BUCCAL DECREASED GLUCOSE; Start 04/08/17 at 20 :00 Collagenase (Santyl) 1 applic DAILY TOP Last administered on 04/22/17 08:49; Admin Dose 1 APPLIC; Start 04/09/17 at 14:00 Collagenase (Santyl) 1 applic DAILY PRN TOP WHEN SOILED; Start 04/09/17 at 13: 00 IV Flush (NS 10 ml) 10 ml PRN PRN IV FLUSH LINE; Start 04/10/17 at 16:30 Gentamicin Sulfate (Gentamicin Iv Per Pharmacy) GENTAMICIN PER PHARMACY NOTE XX ; Start 04/11/17 at 10:30 Metoclopramide HCl (Reglan Liq) 5 mg Q8 PO Last administered on 04/22/17 13:05 ; Admin Dose 5 MG; Start 04/12/17 at 08:30 Povidone Iodine (Povidone-Iodine) 1 applic DAILY TOP Last administered on 08:48; Admin Dose 1 APPLIC; Start 04/12/17 at 11:30 Insulin Aspart (Novolog Insulin Pen) NOVOLOG *MODERATE* ALGORI... Q4 SC Last administered on 04/22/17 13:03; Admin Dose 4 UNIT; Start 04/17/17 at 09:00 Insulin Detemir (Levemir) 8 unit BID SC Last administered on 04/22/17 08:54; Admin Dose 8 UNIT; Start 04/17/17 at 21:00 Acetaminophen (Tylenol Liquid) 650 mg Q6 PRN GTB PAIN AND OR ELEVATED TEMP Last administered on 04/22/17 00:39; Admin Dose 650 MG; Start 04/17/17 at 11:30 Lisinopril (Zestril) 2.5 mg DAILY GTB ; Start 04/23/17 at 09:00 Carvedilol (Coreg) 3.125 mg BID GTB ; Start 04/22/17 at 21:00 HIEU DALY Apr 22, 2017 14:50
[2017-04-22] MEDS: GENTAMICIN 80 MG/NS (PMX) 50 ML IVPB SCH (15:33)
--- NOTE | 2017-04-22 19:29 | CONS ---
Date/Time of Note Date/Time of Note DATE: 04/22/17 TIME: 19:28 Assessment/Plan Assessment/Plan Chief Complaint/Hosp Course - septic shock due to bacteremia (Klebsiella) - resolved - bacteremia due to klebsiella, likely from PNA - complicated UTI due to enterobacter - possible HCAP due to klebsiella and pseudomonas, with moderate pleural effusion - acute toxic metabolic encephalopathy - improving - rectal bleeding at [facility] prior to admission, possibly due to radiation proctitis. So far no bleeding after arrival - normocytic anemia - h/o anal CA s/p radiation - diverticulosis without diverticulitis on CT - mild ascites - bloody secretion via trach, possible due to CHF - pulm edema and volume overload - ESRD on HD, via permacath on R chest wall. 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 - ventilator dependent resp failure s/p tracheostomy placement - G tube dependent status - diarrhea; C diff negative - resolved - reported allergy to penicillin and sulfa drugs - reactions unknown - s/p meropenem 04/08/17-04/18/17 recommendations: - panculture for temp >100.4 F - continue gentamicin (04/11/2017-) for pseudomonas, klebsiella and enterobacter ; anticipate 14 day course - check procalcitonin - recommend orthopedic/neurosurgery consult re: potential destructive change at the L4-5 disk space with apparent posterior retropulsion of portion of artificial disk (seen on CT) Management d/w Dr. Thurston Problems: Consultation Date/Type/Reason Admit Date/Time Apr 08, 2017 at 16:19 Initial Consult Date 04/09/17 Type of Consultation: Infectious Disease Referring Provider: IVAN MALLOY MD 24 HR Interval Summary Free Text/Dictation Afebrile. Nods no to significant pain, SOB, n/v/d. Subjective hx not possible: pt non-verbal Exam/Review of Systems Vital Signs Vitals Vital Signs Date Time Temp Pulse Resp B/P Pulse Ox O2 Delivery O2 Flow Rate FiO2 04/22/17 18:39 95/56 04/22/17 17:27 84 14 97 30 04/22/17 15:33 98.6 04/19/17 18:38 Mechanical Ventilator Intake and Output 04/21/17 04/21/17 04/22/17 15:00 23:00 07:00 Intake Total 490 ml 540 ml Output Total 100 ml 0 ml Balance 390 ml 540 ml Exam Constitutional: alert, frail, non-verbal Head: atraumatic, normocephalic Eyes: nl conjunctiva, nl lids Neck: other (tracheostomy midline) Respiratory: diminished breath sounds, other (R chest wall HD catheter intact) Cardiovascular: nl pulses, regular rate and rhythm Gastrointestinal: bowel sounds, other (G-tube in place with tube feeds), soft Musculoskeletal: swelling Extremities: edema Neurological: alert. Nods to simple questions. Skin: wounds (see nurse note and photo in chart for details; R great toe tip eschar and dressing on R heel c/d/i) Results Result Diagram: 04/22/17 0540 04/22/17 0548 Results 24 hrs Laboratory Tests Test 04/21/17 21:31 04/22/17 01:06 04/22/17 05:30 04/22/17 05:40 Bedside Glucose 128 212 138 White Blood Count 11.0 #H Red Blood Count 3.00 L Hemoglobin 8.9 L Hematocrit 27.7 L Mean Corpuscular Volume 92.3 Mean Corpuscular Hemoglobin 29.7 Mean Corpuscular Hemoglobin Concent 32.1 Red Cell Distribution Width 17.9 H Platelet Count 74 L Mean Platelet Volume 12.3 H Neutrophils % 88.2 H Lymphocytes % 7.1 L Monocytes % 3.8 Eosinophils % 0.0 Basophils % 0.0 Nucleated Red Blood Cells % 0.0 Neutrophils # 9.7 H Lymphocytes # 0.8 Monocytes # 0.4 Eosinophils # 0.0 Basophils # 0.0 Nucleated Red Blood Cells # 0.0 Test 04/22/17 05:48 04/22/17 07:14 04/22/17 08:46 04/22/17 12:56 Sodium Level 132 L Potassium Level 4.0 Chloride Level 98 Carbon Dioxide Level 27 Anion Gap 11 # Blood Urea Nitrogen 69 H Creatinine 2.38 H Glucose Level 131 Calcium Level 7.1 L Lab Scanned Report BLOOD TRANSFUSION Bedside Glucose 152 194 Test 04/22/17 16:37 Bedside Glucose 167 Medications Medications Current Medications Atorvastatin Calcium (Lipitor) 20 mg QHS GTB Last administered on 04/21/17 21: 34; Admin Dose 20 MG; Start 04/08/17 at 21:00 Acetaminophen/ Hydrocodone Bitart ([place] (5/325)) 1 tab Q6H PRN GTB SEVERE PAIN LEVEL 7-10 Last administered on 04/22/17 16:37; Admin Dose 1 TAB; Start at 19:30 Albuterol/ Ipratropium (Duoneb) 3 ml Q2H PRN NEB SHORTNESS OF BREATH; Start at 19:30 Levothyroxine Sodium (Synthroid) 125 mcg DAILY@06 GTB Last administered on 05:31; Admin Dose 125 MCG; Start 04/09/17 at 06:00 Multivit/Ca Carb/ B Cmplx/FA/Prenat (Shayla-Anuradha) 1 tab DAILY GTB Last administered on 04/22/17 08:47; Admin Dose 1 TAB; Start 04/09/17 at 09:00 Quetiapine Fumarate (Seroquel) 25 mg BID GTB Last administered on 04/22/17 08: 47; Admin Dose 25 MG; Start 04/08/17 at 21:00 Trazodone HCl (Desyrel) 25 mg QHS PO Last administered on 04/21/17 21:34; Admin Dose 25 MG; Start 04/08/17 at 21:00 Acetaminophen (Tylenol Tab) 650 mg Q4H PRN PO PAIN AND OR ELEVATED TEMP; Start 04/08/17 at 19:30 Morphine Sulfate (morphine) 2 mg Q4H PRN IV PAIN LEVEL 8-10 Last administered on 04/21/17 11:29; Admin Dose 2 MG; Start 04/08/17 at 19:30 Miscellaneous Information 1 ea NOTE XX ; Start 04/08/17 at 20:00 Glucose (Glutose) 15 gm Q15M PRN PO DECREASED GLUCOSE; Start 04/08/17 at 20:00 Glucose (Glutose) 22.5 gm Q15M PRN PO DECREASED GLUCOSE; Start 04/08/17 at 20: 00 Dextrose (D50w Syringe) 25 ml Q15M PRN IV DECREASED GLUCOSE Last administered on 04/19/17 06:01; Admin Dose 25 ML; Start 6/23/17 at 20:00 Dextrose (D50w Syringe) 50 ml Q15M PRN IV DECREASED GLUCOSE; Start 04/08/17 at 20:00 Glucagon (Glucagen) 1 mg Q15M PRN IM DECREASED GLUCOSE; Start 04/08/17 at 20:00 Glucose (Glutose) 15 gm Q15M PRN BUCCAL DECREASED GLUCOSE; Start 04/08/17 at 20 :00 Collagenase (Santyl) 1 applic DAILY TOP Last administered on 04/22/17 08:49; Admin Dose 1 APPLIC; Start 04/09/17 at 14:00 Collagenase (Santyl) 1 applic DAILY PRN TOP WHEN SOILED; Start 04/09/17 at 13: 00 IV Flush (NS 10 ml) 10 ml PRN PRN IV FLUSH LINE; Start 04/10/17 at 16:30 Gentamicin Sulfate (Gentamicin Iv Per Pharmacy) GENTAMICIN PER PHARMACY NOTE XX ; Start 04/11/17 at 10:30 Metoclopramide HCl (Reglan Liq) 5 mg Q8 PO Last administered on 04/22/17 13:05 ; Admin Dose 5 MG; Start 04/12/17 at 08:30 Povidone Iodine (Povidone-Iodine) 1 applic DAILY TOP Last administered on 08:48; Admin Dose 1 APPLIC; Start 04/12/17 at 11:30 Insulin Aspart (Novolog Insulin Pen) NOVOLOG *MODERATE* ALGORI... Q4 SC Last administered on 04/22/17 16:44; Admin Dose 2 UNIT; Start 04/17/17 at 09:00 Insulin Detemir (Levemir) 8 unit BID SC Last administered on 04/22/17 08:54; Admin Dose 8 UNIT; Start 04/17/17 at 21:00 Acetaminophen (Tylenol Liquid) 650 mg Q6 PRN GTB PAIN AND OR ELEVATED TEMP Last administered on 04/22/17 00:39; Admin Dose 650 MG; Start 04/17/17 at 11:30 Lisinopril (Zestril) 2.5 mg DAILY GTB ; Start 04/23/17 at 09:00 Carvedilol (Coreg) 3.125 mg BID GTB ; Start 04/22/17 at 21:00 VARINDER JULES NP Apr 22, 2017 19:29
--- NOTE | 2017-04-22 19:54 | CONS ---
Date/Time of Note Date/Time of Note DATE: 04/22/17 TIME: 19:53 Consult Date/Type/Reason Admit Date/Time Apr 08, 2017 at 16:19 Initial Consult Date 04/09/17 Type of Consultation: Pulmonary Ordering Provider: IVAN MALLOY MD Subjective Patient comfortable this afternoon no resp distress. Objective Vital Signs Date Time Temp Pulse Resp B/P Pulse Ox O2 Delivery O2 Flow Rate FiO2 04/22/17 19:45 97.9 80 107/57 100 04/22/17 19:29 14 30 04/19/17 18:38 Mechanical Ventilator Intake and Output 04/21/17 04/21/17 04/22/17 15:00 23:00 07:00 Intake Total 490 ml 540 ml Output Total 100 ml 0 ml Balance 390 ml 540 ml Exam PHYSICAL EXAMINATION GENERAL: Elderly lady on mechanical ventilation via tracheostomy appears comfortable at rest VITAL SIGNS: see below. HEENT: Pupils equal, round, and reactive to light. Tracheostomy site clean and intact. CARDIAC: S1, S2, 1/6 systolic ejection murmur CHEST: Diminished air entry bilaterally. ABDOMEN: Mildly distended. Bowel sounds present no guarding or rebound EXTREMITIES: No cyanosis, clubbing edema +1 NEUROLOGIC: Generalized weakness Results/Medications Result Diagram: 04/22/17 0540 04/22/17 0548 Results 24 hrs Laboratory Tests Test 04/21/17 21:31 04/22/17 01:06 04/22/17 05:30 04/22/17 05:40 Bedside Glucose 128 212 138 White Blood Count 11.0 #H Red Blood Count 3.00 L Hemoglobin 8.9 L Hematocrit 27.7 L Mean Corpuscular Volume 92.3 Mean Corpuscular Hemoglobin 29.7 Mean Corpuscular Hemoglobin Concent 32.1 Red Cell Distribution Width 17.9 H Platelet Count 74 L Mean Platelet Volume 12.3 H Neutrophils % 88.2 H Lymphocytes % 7.1 L Monocytes % 3.8 Eosinophils % 0.0 Basophils % 0.0 Nucleated Red Blood Cells % 0.0 Neutrophils # 9.7 H Lymphocytes # 0.8 Monocytes # 0.4 Eosinophils # 0.0 Basophils # 0.0 Nucleated Red Blood Cells # 0.0 Test 04/22/17 05:48 04/22/17 07:14 04/22/17 08:46 04/22/17 12:56 Sodium Level 132 L Potassium Level 4.0 Chloride Level 98 Carbon Dioxide Level 27 Anion Gap 11 # Blood Urea Nitrogen 69 H Creatinine 2.38 H Glucose Level 131 Calcium Level 7.1 L Lab Scanned Report BLOOD TRANSFUSION Bedside Glucose 152 194 Test 04/22/17 16:37 Bedside Glucose 167 Medications Current Medications Atorvastatin Calcium (Lipitor) 20 mg QHS GTB Last administered on 04/21/17 21: 34; Admin Dose 20 MG; Start 04/08/17 at 21:00 Acetaminophen/ Hydrocodone Bitart ([place] (5/325)) 1 tab Q6H PRN GTB SEVERE PAIN LEVEL 7-10 Last administered on 04/22/17 16:37; Admin Dose 1 TAB; Start at 19:30 Albuterol/ Ipratropium (Duoneb) 3 ml Q2H PRN NEB SHORTNESS OF BREATH; Start at 19:30 Levothyroxine Sodium (Synthroid) 125 mcg DAILY@06 GTB Last administered on 05:31; Admin Dose 125 MCG; Start 04/09/17 at 06:00 Multivit/Ca Carb/ B Cmplx/FA/Prenat (Shayla-Anuradha) 1 tab DAILY GTB Last administered on 04/22/17 08:47; Admin Dose 1 TAB; Start 04/09/17 at 09:00 Quetiapine Fumarate (Seroquel) 25 mg BID GTB Last administered on 04/22/17 08: 47; Admin Dose 25 MG; Start 04/08/17 at 21:00 Trazodone HCl (Desyrel) 25 mg QHS PO Last administered on 04/21/17 21:34; Admin Dose 25 MG; Start 04/08/17 at 21:00 Acetaminophen (Tylenol Tab) 650 mg Q4H PRN PO PAIN AND OR ELEVATED TEMP; Start 04/08/17 at 19:30 Morphine Sulfate (morphine) 2 mg Q4H PRN IV PAIN LEVEL 8-10 Last administered on 04/21/17 11:29; Admin Dose 2 MG; Start 04/08/17 at 19:30 Miscellaneous Information 1 ea NOTE XX ; Start 04/08/17 at 20:00 Glucose (Glutose) 15 gm Q15M PRN PO DECREASED GLUCOSE; Start 04/08/17 at 20:00 Glucose (Glutose) 22.5 gm Q15M PRN PO DECREASED GLUCOSE; Start 04/08/17 at 20: 00 Dextrose (D50w Syringe) 25 ml Q15M PRN IV DECREASED GLUCOSE Last administered on 04/19/17 06:01; Admin Dose 25 ML; Start 04/08/17 at 20:00 Dextrose (D50w Syringe) 50 ml Q15M PRN IV DECREASED GLUCOSE; Start 04/08/17 at 20:00 Glucagon (Glucagen) 1 mg Q15M PRN IM DECREASED GLUCOSE; Start 04/08/17 at 20:00 Glucose (Glutose) 15 gm Q15M PRN BUCCAL DECREASED GLUCOSE; Start 04/08/17 at 20 :00 Collagenase (Santyl) 1 applic DAILY TOP Last administered on 04/22/17 08:49; Admin Dose 1 APPLIC; Start 04/09/17 at 14:00 Collagenase (Santyl) 1 applic DAILY PRN TOP WHEN SOILED; Start 04/09/17 at 13: 00 IV Flush (NS 10 ml) 10 ml PRN PRN IV FLUSH LINE; Start 04/10/17 at 16:30 Gentamicin Sulfate (Gentamicin Iv Per Pharmacy) GENTAMICIN PER PHARMACY NOTE XX ; Start 04/11/17 at 10:30 Metoclopramide HCl (Reglan Liq) 5 mg Q8 PO Last administered on 04/22/17 13:05 ; Admin Dose 5 MG; Start 04/12/17 at 08:30 Povidone Iodine (Povidone-Iodine) 1 applic DAILY TOP Last administered on 08:48; Admin Dose 1 APPLIC; Start 04/12/17 at 11:30 Insulin Aspart (Novolog Insulin Pen) NOVOLOG *MODERATE* ALGORI... Q4 SC Last administered on 04/22/17 16:44; Admin Dose 2 UNIT; Start 04/17/17 at 09:00 Insulin Detemir (Levemir) 8 unit BID SC Last administered on 04/22/17 08:54; Admin Dose 8 UNIT; Start 04/17/17 at 21:00 Acetaminophen (Tylenol Liquid) 650 mg Q6 PRN GTB PAIN AND OR ELEVATED TEMP Last administered on 04/22/17 00:39; Admin Dose 650 MG; Start 7/2/17 at 11:30 Lisinopril (Zestril) 2.5 mg DAILY GTB ; Start 04/23/17 at 09:00 Carvedilol (Coreg) 3.125 mg BID GTB ; Start 04/22/17 at 21:00 Assessment/Plan Chief Complaint/Hosp Course IMP: 1. Status post septic shock with klebsiella bacteremia 2. VDRF 3. ESRD on HD 4. CHF with tachycardia 5. Encephalopathy resolving RECS: 1. monitor off vasopressors 2. Continue HD/UF 3. Abx per ID 4. Continue tube feeding as tolerated Consider transfer back to [facility]. Problems: STEPHANIE BAIRES MD, [facility] Apr 22, 2017 19:53
[2017-04-22] MEDS: morphine 2 MG INJ IV PRN (21:11)
[2017-04-22] MEDS: ATORVASTATIN 20 MG TAB GTB SCH (21:13)
[2017-04-22] MEDS: traZODone 50 MG TAB PO SCH (21:14)
--- NOTE | 2017-04-22 22:45 | CONS ---
Date/Time of Note Date/Time of Note DATE: 04/22/17 TIME: 22:43 Assessment/Plan Assessment/Plan Chief Complaint/Hosp Course 66-year-old female with a history of end-stage renal disease on dialysis, status post trach on vent, status post PEG, admitted to the intensive care unit for sepsis. Patient also had a rectal bleeding. GI consult was called in for abdominal distention. Patient had both KUB and CAT scan done within the last few days CAT scan was negative for any acute pathology. Patient had some ascites and anasarca. KUB also was negative. Patient is on G-tube feeding at 10 cc/h. Her residual has been around 10 cc. No active bleeding has been noted by the staff in ICU. Problems: Additional Assessment/Plan 1. Sepsis. 2. Coronary artery disease with systolic heart failure. Continue hemodialysis to remove fluids. 3. Coronary artery disease, status post coronary artery bypass graft. 4. Dysphagia on tube feeds 5. Respiratory failure. Continue vent support. Will obtain a pulmonary consult from [facility]. 6. abdominal distension: CT unrevealing, minimal residual. 7. Anal cancer with recent rectal bleed. Status post radiation treatment. Her rectal bleeding is most probably from radiation proctitis 8. History of pulseless electrical activity with possible anoxic encephalopathy. Will continue to monitor. 9. History of GI bleed. 10. Dyslipidemia. 11. Anasarca, and ascites 12. Renal failure on dialysis 13. Encephalopathy, resolved patient is alert awake and oriented 14. Anemia multifactorial, stable now Plan increase lansoprazole to bid dosing Continue antibiotic continue tube feeding through the G-tube at 40 cc/h, which patient is tolerating well More fluid to be removed during dialysis. Patient has responded well the swelling has come down Anasarca also has reduced flush G tube with coke TID Consultation Date/Type/Reason Admit Date/Time Apr 08, 2017 at 16:19 Initial Consult Date 04/09/17 Type of Consultation: Pulmonary Referring Provider: IVAN MALLOY MD 24 HR Interval Summary Free Text/Dictation clogged g tube Exam/Review of Systems Vital Signs Vitals Vital Signs Date Time Temp Pulse Resp B/P Pulse Ox O2 Delivery O2 Flow Rate FiO2 04/22/17 20:02 80 04/22/17 19:45 97.9 107/57 100 04/22/17 19:29 14 30 04/19/17 18:38 Mechanical Ventilator Intake and Output 04/21/17 04/21/17 04/22/17 15:00 23:00 07:00 Intake Total 490 ml 540 ml Output Total 100 ml 0 ml Balance 390 ml 540 ml Exam Constitutional: alert, oriented, well developed Psych: nl mood/affect, no complaints Head: atraumatic, normocephalic Eyes: EOMI, PERRL, nl conjunctiva, nl lids, nl sclera ENMT: nl external ears & nose, nl lips & teeth, nl nasal mucosa & septum Neck: non-tender, supple Respiratory: clear to auscultation, normal air movement Cardiovascular: nl pulses, regular rate and rhythm Gastrointestinal: nl liver, spleen, non-tender, soft Musculoskeletal: nl extremities to inspection, nl gait and stance Extremities: normal pulses Neurological: [employer] II-XII intact, nl mental status, nl speech, nl strength Skin: nl turgor, No rash or lesions Lymph: nl lymph nodes Results Result Diagram: 04/22/17 0540 04/22/17 0548 Results 24 hrs Laboratory Tests Test 04/22/17 01:06 04/22/17 05:30 04/22/17 05:40 04/22/17 05:48 Bedside Glucose 212 138 White Blood Count 11.0 #H Red Blood Count 3.00 L Hemoglobin 8.9 L Hematocrit 27.7 L Mean Corpuscular Volume 92.3 Mean Corpuscular Hemoglobin 29.7 Mean Corpuscular Hemoglobin Concent 32.1 Red Cell Distribution Width 17.9 H Platelet Count 74 L Mean Platelet Volume 12.3 H Neutrophils % 88.2 H Lymphocytes % 7.1 L Monocytes % 3.8 Eosinophils % 0.0 Basophils % 0.0 Nucleated Red Blood Cells % 0.0 Neutrophils # 9.7 H Lymphocytes # 0.8 Monocytes # 0.4 Eosinophils # 0.0 Basophils # 0.0 Nucleated Red Blood Cells # 0.0 Sodium Level 132 L Potassium Level 4.0 Chloride Level 98 Carbon Dioxide Level 27 Anion Gap 11 # Blood Urea Nitrogen 69 H Creatinine 2.38 H Glucose Level 131 Calcium Level 7.1 L Test 04/22/17 07:14 04/22/17 08:46 04/22/17 12:56 04/22/17 16:37 Lab Scanned Report BLOOD TRANSFUSION Bedside Glucose 152 194 167 Test 04/22/17 21:16 Bedside Glucose 109 Medications Medications Current Medications Atorvastatin Calcium (Lipitor) 20 mg QHS GTB Last administered on 04/22/17 21: 13; Admin Dose 20 MG; Start 04/08/17 at 21:00 Acetaminophen/ Hydrocodone Bitart ([place] (5/325)) 1 tab Q6H PRN GTB SEVERE PAIN LEVEL 7-10 Last administered on 04/22/17 16:37; Admin Dose 1 TAB; Start at 19:30 Albuterol/ Ipratropium (Duoneb) 3 ml Q2H PRN NEB SHORTNESS OF BREATH; Start at 19:30 Levothyroxine Sodium (Synthroid) 125 mcg DAILY@06 GTB Last administered on 05:31; Admin Dose 125 MCG; Start 04/09/17 at 06:00 Multivit/Ca Carb/ B Cmplx/FA/Prenat (Shayla-Anuradha) 1 tab DAILY GTB Last administered on 04/22/17 08:47; Admin Dose 1 TAB; Start 04/09/17 at 09:00 Quetiapine Fumarate (Seroquel) 25 mg BID GTB Last administered on 04/22/17 21: 13; Admin Dose 25 MG; Start 04/08/17 at 21:00 Trazodone HCl (Desyrel) 25 mg QHS PO Last administered on 04/22/17 21:14; Admin Dose 25 MG; Start 04/08/17 at 21:00 Acetaminophen (Tylenol Tab) 650 mg Q4H PRN PO PAIN AND OR ELEVATED TEMP; Start 04/08/17 at 19:30 Morphine Sulfate (morphine) 2 mg Q4H PRN IV PAIN LEVEL 8-10 Last administered on 04/22/17 21:11; Admin Dose 2 MG; Start 04/08/17 at 19:30 Miscellaneous Information 1 ea NOTE XX ; Start 04/08/17 at 20:00 Glucose (Glutose) 15 gm Q15M PRN PO DECREASED GLUCOSE; Start 04/08/17 at 20:00 Glucose (Glutose) 22.5 gm Q15M PRN PO DECREASED GLUCOSE; Start 04/08/17 at 20: 00 Dextrose (D50w Syringe) 25 ml Q15M PRN IV DECREASED GLUCOSE Last administered on 04/19/17 06:01; Admin Dose 25 ML; Start 04/08/17 at 20:00 Dextrose (D50w Syringe) 50 ml Q15M PRN IV DECREASED GLUCOSE; Start 04/08/17 at 20:00 Glucagon (Glucagen) 1 mg Q15M PRN IM DECREASED GLUCOSE; Start 04/08/17 at 20:00 Glucose (Glutose) 15 gm Q15M PRN BUCCAL DECREASED GLUCOSE; Start 04/08/17 at 20 :00 Collagenase (Santyl) 1 applic DAILY TOP Last administered on 04/22/17 08:49; Admin Dose 1 APPLIC; Start 04/09/17 at 14:00 Collagenase (Santyl) 1 applic DAILY PRN TOP WHEN SOILED; Start 04/09/17 at 13: 00 IV Flush (NS 10 ml) 10 ml PRN PRN IV FLUSH LINE; Start 04/10/17 at 16:30 Gentamicin Sulfate (Gentamicin Iv Per Pharmacy) GENTAMICIN PER PHARMACY NOTE XX ; Start 04/11/17 at 10:30 Metoclopramide HCl (Reglan Liq) 5 mg Q8 PO Last administered on 04/22/17 21:26 ; Admin Dose 5 MG; Start 04/12/17 at 08:30 Povidone Iodine (Povidone-Iodine) 1 applic DAILY TOP Last administered on 08:48; Admin Dose 1 APPLIC; Start 04/12/17 at 11:30 Insulin Aspart (Novolog Insulin Pen) NOVOLOG *MODERATE* ALGORI... Q4 SC Last administered on 04/22/17 16:44; Admin Dose 2 UNIT; Start 04/17/17 at 09:00 Insulin Detemir (Levemir) 8 unit BID SC Last administered on 04/22/17 21:25; Admin Dose 8 UNIT; Start 04/17/17 at 21:00 Acetaminophen (Tylenol Liquid) 650 mg Q6 PRN GTB PAIN AND OR ELEVATED TEMP Last administered on 04/22/17 00:39; Admin Dose 650 MG; Start 04/17/17 at 11:30 Lisinopril (Zestril) 2.5 mg DAILY GTB ; Start 04/23/17 at 09:00 Carvedilol (Coreg) 3.125 mg BID GTB ; Start 04/22/17 at 21:00 KAIN HOWELL MD Apr 22, 2017 22:45
[2017-04-23] VITALS (25 sets, daily range): BP systolic 97–131; BP diastolic 43–60; PULSE 85–92; RESP 14–22
[2017-04-23] MEDS: INSULIN ASPART [NOVOLOG] 3 ML PEN SC SCH ×6 (00:41→21:09)
[2017-04-23] MEDS: DEXTROSE 50% 50 ML SYRINGE IV PRN (00:46)
[2017-04-23] MEDS: morphine 2 MG INJ IV PRN ×2 (01:26→16:57)
[2017-04-23] MEDS: METOCLOPRAMIDE (1 MG/ML) 10 ML CUP PO SCH ×3 (05:38→21:06)
[2017-04-23] MEDS: LEVOTHYROXINE 125 MCG TAB GTB SCH (05:38)
[2017-04-23 06:22] LABS: ADD SCAN DIFF NO
[2017-04-23 06:45] LABS: ABNORMAL IP MESSAGE 1; BASOPHILS % 0.1 % (0.0-2.0); HEMATOCRIT 31.6 % (37.0-47.0); HEMOGLOBIN 10.3 g/dl (12.0-16.0); LYMPHOCYTES # 0.7 10^3/ul (0.8-2.9); LYMPHOCYTES % 6.7 % (15.0-51.0); MEAN CORPUSCULAR HEMOGLOBIN 29.8 pg (29.0-33.0); MEAN CORPUSCULAR HGB CONC 32.6 g/dl (32.0-37.0); MEAN CORPUSCULAR VOLUME 91.3 fl (82.0-101.0); MEAN PLATELET VOLUME 12.6 fl (7.4-10.4); MONOCYTE # 0.5 10^3/ul (0.3-0.9); MONOCYTES % 5.3 % (0.0-11.0); NEUTROPHIL # 8.5 10^3/ul (1.6-7.5); NEUTROPHILS % 86.8 % (39.0-77.0); RED BLOOD COUNT 3.46 10^6/ul (4.20-5.40); RED CELL DISTRIBUTION WIDTH 18.6 % (11.5-14.5); WHITE BLOOD COUNT 9.8 10^3/ul (4.8-10.8)
[2017-04-23 06:58] LABS: PLATELET COUNT 88 10^3/UL (140-415)
[2017-04-23 07:03] LABS: CREATININE 2.07 mg/dl (0.44-1.00); POTASSIUM 3.6 mmol/L (3.5-5.1)
[2017-04-23] MEDS: LISINOPRIL 5 MG TAB GTB SCH (09:00)
[2017-04-23] MEDS: POVIDONE IODINE 10% 28.4 GM OINT TOP SCH (09:00)
[2017-04-23] MEDS: INSULIN DETEMIR [LEVEMIR] 3ML CART SC SCH ×2 (09:00→21:08)
[2017-04-23] MEDS: COLLAGENASE 30 GM TUBE TOP SCH (09:00)
[2017-04-23] MEDS: MULTIVIT/CA CARB/B CMPLX/FA TAB GTB SCH (10:10)
[2017-04-23] MEDS: LANSOPRAZOLE 30 MG CAP GTB SCH ×2 (10:10→16:35)
[2017-04-23] MEDS: QUETIAPINE 25 MG TAB GTB SCH ×2 (10:14→21:06)
--- NOTE | 2017-04-23 10:56 | CONS ---
Date/Time of Note Date/Time of Note DATE: 04/23/17 TIME: 10:54 Consult Date/Type/Reason Admit Date/Time Apr 08, 2017 at 16:19 Initial Consult Date 04/09/17 Type of Consultation: Pulmonary Ordering Provider: IVAN MALLOY MD Subjective Patient seen and examined. Stable. tolerated hd yesterday. HEENT: Head is normocephalic. Pupils are reactive to light. NECK: Supple. HEART: Regular rate. LUNGS: Show diminished breath sounds at base. ABDOMEN: Soft, nontender to palpation. No rebound or guarding. EXTREMITIES: Negative for clubbing, cyanosis,. Positive edema. DERMATOLOGIC: No rashes. MUSCULOSKELETAL: No joint effusions. NEUROLOGIC: No change in exam. Objective Vital Signs Date Time Temp Pulse Resp B/P Pulse Ox O2 Delivery O2 Flow Rate FiO2 04/23/17 08:23 90 04/23/17 07:15 98.2 16 100/59 98 04/23/17 05:32 30 04/19/17 18:38 Mechanical Ventilator Intake and Output 04/22/17 04/22/17 04/23/17 15:00 23:00 07:00 Intake Total 1010 ml 580 ml Output Total 3080 ml 0 ml Balance -2070 ml 580 ml Results/Medications Result Diagram: 04/23/17 0535 04/23/17 0535 Results 24 hrs Laboratory Tests Test 04/22/17 12:56 04/22/17 16:37 04/22/17 21:16 04/23/17 00:38 Bedside Glucose 194 167 109 69 L Test 04/23/17 01:06 04/23/17 01:25 04/23/17 05:35 04/23/17 05:44 Bedside Glucose 127 92 44 *L White Blood Count 9.8 Red Blood Count 3.46 L Hemoglobin 10.3 L Hematocrit 31.6 L Mean Corpuscular Volume 91.3 Mean Corpuscular Hemoglobin 29.8 Mean Corpuscular Hemoglobin Concent 32.6 Red Cell Distribution Width 18.6 H Platelet Count 88 L Mean Platelet Volume 12.6 H Neutrophils % 86.8 H Lymphocytes % 6.7 L Monocytes % 5.3 Eosinophils % 0.0 Basophils % 0.1 Nucleated Red Blood Cells % 0.0 Neutrophils # 8.5 H Lymphocytes # 0.7 L Monocytes # 0.5 Eosinophils # 0.0 Basophils # 0.0 Nucleated Red Blood Cells # 0.0 Sodium Level 142 Potassium Level 3.6 Chloride Level 101 Carbon Dioxide Level 28 Anion Gap 17 H Blood Urea Nitrogen 53 H Creatinine 2.07 H Glucose Level 42 #*L Calcium Level 8.0 L Test 04/23/17 06:06 04/23/17 06:19 04/23/17 10:41 Bedside Glucose 128 113 88 Medications Current Medications Atorvastatin Calcium (Lipitor) 20 mg QHS GTB Last administered on 04/22/17 21: 13; Admin Dose 20 MG; Start 04/08/17 at 21:00 Acetaminophen/ Hydrocodone Bitart ([place] (5/325)) 1 tab Q6H PRN GTB SEVERE PAIN LEVEL 7-10 Last administered on 04/22/17 23:35; Admin Dose 1 TAB; Start at 19:30 Albuterol/ Ipratropium (Duoneb) 3 ml Q2H PRN NEB SHORTNESS OF BREATH; Start at 19:30 Levothyroxine Sodium (Synthroid) 125 mcg DAILY@06 GTB Last administered on 05:38; Admin Dose 125 MCG; Start 04/09/17 at 06:00 Multivit/Ca Carb/ B Cmplx/FA/Prenat (Shayla-Anuradha) 1 tab DAILY GTB Last administered on 04/23/17 10:10; Admin Dose 1 TAB; Start 04/09/17 at 09:00 Quetiapine Fumarate (Seroquel) 25 mg BID GTB Last administered on 04/23/17 10: 14; Admin Dose 25 MG; Start 04/08/17 at 21:00 Trazodone HCl (Desyrel) 25 mg QHS PO Last administered on 04/22/17 21:14; Admin Dose 25 MG; Start 04/08/17 at 21:00 Acetaminophen (Tylenol Tab) 650 mg Q4H PRN PO PAIN AND OR ELEVATED TEMP; Start 04/08/17 at 19:30 Morphine Sulfate (morphine) 2 mg Q4H PRN IV PAIN LEVEL 8-10 Last administered on 04/23/17 01:26; Admin Dose 2 MG; Start 04/08/17 at 19:30 Miscellaneous Information 1 ea NOTE XX ; Start 04/08/17 at 20:00 Glucose (Glutose) 15 gm Q15M PRN PO DECREASED GLUCOSE; Start 04/08/17 at 20:00 Glucose (Glutose) 22.5 gm Q15M PRN PO DECREASED GLUCOSE; Start 04/08/17 at 20: 00 Dextrose (D50w Syringe) 25 ml Q15M PRN IV DECREASED GLUCOSE Last administered on 04/23/17 00:46; Admin Dose 25 ML; Start 04/08/17 at 20:00 Dextrose (D50w Syringe) 50 ml Q15M PRN IV DECREASED GLUCOSE Last administered on 04/23/17 05:50; Admin Dose 50 ML; Start 04/08/17 at 20:00 Glucagon (Glucagen) 1 mg Q15M PRN IM DECREASED GLUCOSE; Start 04/08/17 at 20:00 Glucose (Glutose) 15 gm Q15M PRN BUCCAL DECREASED GLUCOSE; Start 04/08/17 at 20 :00 Collagenase (Santyl) 1 applic DAILY TOP Last administered on 04/23/17 09:00; Admin Dose 1 APPLIC; Start 04/09/17 at 14:00 Collagenase (Santyl) 1 applic DAILY PRN TOP WHEN SOILED; Start 04/09/17 at 13: 00 IV Flush (NS 10 ml) 10 ml PRN PRN IV FLUSH LINE; Start 04/10/17 at 16:30 Gentamicin Sulfate (Gentamicin Iv Per Pharmacy) GENTAMICIN PER PHARMACY NOTE XX ; Start 04/11/17 at 10:30 Metoclopramide HCl (Reglan Liq) 5 mg Q8 PO Last administered on 04/23/17 05:38 ; Admin Dose 5 MG; Start 04/12/17 at 08:30 Povidone Iodine (Povidone-Iodine) 1 applic DAILY TOP Last administered on 09:00; Admin Dose 1 APPLIC; Start 04/12/17 at 11:30 Insulin Aspart (Novolog Insulin Pen) NOVOLOG *MODERATE* ALGORI... Q4 SC Last administered on 04/22/17 16:44; Admin Dose 2 UNIT; Start 04/17/17 at 09:00 Acetaminophen (Tylenol Liquid) 650 mg Q6 PRN GTB PAIN AND OR ELEVATED TEMP Last administered on 04/22/17 00:39; Admin Dose 650 MG; Start 04/17/17 at 11:30 Lisinopril (Zestril) 2.5 mg DAILY GTB ; Start 04/23/17 at 09:00 Carvedilol (Coreg) 3.125 mg BID GTB ; Start 04/22/17 at 21:00 Insulin Detemir (Levemir) 4 unit BID SC ; Start 04/23/17 at 09:00 Assessment/Plan Chief Complaint/Hosp Course 1. End-stage renal disease. The patient is receiving daily dialysis for solute clearance and volume removal. - Plan for hemodialysis on qod schedule. 2. Anemia of chronic disease. With GI bleeding. continue to monitor hemoglobin and hematocrit levels. -We will transfuse to keep hemoglobin above 8 3. Mineral bone disorder. Monitor calcium phosphorus levels 4. Hyponatremia secondary to end-stage renal disease. Limit free water. HD 140 sodium bath and improved. 5. Hypokalemia, - replete with potassium chloride 6. Septic shock, etiology is multifactorial secondary to urinary tract infection and pneumonia. Continue current broad spectrum antibiotics, continue pressor support. 7. Ventilator dependent respiratory failure. Vent settings have been reviewed. ABG have been reviewed. Continue to monitor. 8. Dysphagia status post percutaneous endoscopic gastrostomy. Continue tube feeding. 9. History of coronary artery disease. 10. Diabetes. Continue Accu-Cheks and sliding scale. 11. Hypothyroidism. Continue Synthroid. 12. History of anal cancer. 13. Acute on chronic encephalopathy, etiology is toxic metabolic. Continue to monitor. 14. Volume overload secondary to congestive heart failure, end-stage renal disease. Continue ultrafiltration with dialysis. Problems: KEN STAHL MD Apr 23, 2017 10:56
--- NOTE | 2017-04-23 11:21 | PN ---
Date/Time of Note Date/Time of Note DATE: 04/23/17 TIME: 11:20 Assessment/Plan VTE Prophylaxis VTE Prophylaxis Intervention: other Lines/Catheters [facility] Urinary Cath still in place: Yes Reason Cath still needed: skin wounds contaminated by urine Assessment/Plan Chief Complaint/Hosp Course - Septic shock with Klebsiella bacteremia. Continue antibiotics per ID. Dr. Thurston group is following in infection disease consultation. - Acute respiratory failure. Continue ventilatory support. - Diabetes mellitus. Continue Levemir and NovoLog. - Systolic heart failure. Continue hemodialysis for fluid removal. - End-stage renal disease. Continue hemodialysis. - Anoxic encephalopathy. No acute issues. - Anemia of chronic disease. Continue Epogen. - Hypothyroidism. Continue Synthroid. - Dyslipidemia. Continue Lipitor. - Possible history of psychosis. Continue Seroquel and trazodone. Problems: Subjective 24 Hr Interval Summary Free Text/Dictation Patient is doing ok Exam/Review of Systems Vital Signs Vitals Vital Signs Date Time Temp Pulse Resp B/P Pulse Ox O2 Delivery O2 Flow Rate FiO2 04/23/17 08:23 90 04/23/17 07:15 98.2 16 100/59 98 04/23/17 05:32 30 04/19/17 18:38 Mechanical Ventilator Intake and Output 04/22/17 04/22/17 04/23/17 15:00 23:00 07:00 Intake Total 1010 ml 580 ml Output Total 3080 ml 0 ml Balance -2070 ml 580 ml Exam Constitutional: well developed Head: atraumatic, normocephalic Neck: supple Respiratory: diminished breath sounds Cardiovascular: regular rate and rhythm Gastrointestinal: non-tender, soft Extremities: normal pulses Results Result Diagram: 04/23/17 0535 04/23/17 0535 Results 24 hrs Laboratory Tests Test 04/22/17 12:56 04/22/17 16:37 04/22/17 21:16 04/23/17 00:38 Bedside Glucose 194 167 109 69 L Test 04/23/17 01:06 04/23/17 01:25 04/23/17 05:35 04/23/17 05:44 Bedside Glucose 127 92 44 *L White Blood Count 9.8 Red Blood Count 3.46 L Hemoglobin 10.3 L Hematocrit 31.6 L Mean Corpuscular Volume 91.3 Mean Corpuscular Hemoglobin 29.8 Mean Corpuscular Hemoglobin Concent 32.6 Red Cell Distribution Width 18.6 H Platelet Count 88 L Mean Platelet Volume 12.6 H Neutrophils % 86.8 H Lymphocytes % 6.7 L Monocytes % 5.3 Eosinophils % 0.0 Basophils % 0.1 Nucleated Red Blood Cells % 0.0 Neutrophils # 8.5 H Lymphocytes # 0.7 L Monocytes # 0.5 Eosinophils # 0.0 Basophils # 0.0 Nucleated Red Blood Cells # 0.0 Sodium Level 142 Potassium Level 3.6 Chloride Level 101 Carbon Dioxide Level 28 Anion Gap 17 H Blood Urea Nitrogen 53 H Creatinine 2.07 H Glucose Level 42 #*L Calcium Level 8.0 L Test 04/23/17 06:06 04/23/17 06:19 04/23/17 10:41 Bedside Glucose 128 113 88 Medications Medications Current Medications Atorvastatin Calcium (Lipitor) 20 mg QHS GTB Last administered on 04/22/17 21: 13; Admin Dose 20 MG; Start 04/08/17 at 21:00 Acetaminophen/ Hydrocodone Bitart ([place] (5/325)) 1 tab Q6H PRN GTB SEVERE PAIN LEVEL 7-10 Last administered on 04/22/17 23:35; Admin Dose 1 TAB; Start at 19:30 Albuterol/ Ipratropium (Duoneb) 3 ml Q2H PRN NEB SHORTNESS OF BREATH; Start at 19:30 Levothyroxine Sodium (Synthroid) 125 mcg DAILY@06 GTB Last administered on 05:38; Admin Dose 125 MCG; Start 04/09/17 at 06:00 Multivit/Ca Carb/ B Cmplx/FA/Prenat (Shayla-Anuradha) 1 tab DAILY GTB Last administered on 04/23/17 10:10; Admin Dose 1 TAB; Start 04/09/17 at 09:00 Quetiapine Fumarate (Seroquel) 25 mg BID GTB Last administered on 04/23/17 10: 14; Admin Dose 25 MG; Start 04/08/17 at 21:00 Trazodone HCl (Desyrel) 25 mg QHS PO Last administered on 04/22/17 21:14; Admin Dose 25 MG; Start 04/08/17 at 21:00 Acetaminophen (Tylenol Tab) 650 mg Q4H PRN PO PAIN AND OR ELEVATED TEMP; Start 04/08/17 at 19:30 Morphine Sulfate (morphine) 2 mg Q4H PRN IV PAIN LEVEL 8-10 Last administered on 04/23/17 01:26; Admin Dose 2 MG; Start 04/08/17 at 19:30 Miscellaneous Information 1 ea NOTE XX ; Start 04/08/17 at 20:00 Glucose (Glutose) 15 gm Q15M PRN PO DECREASED GLUCOSE; Start 04/08/17 at 20:00 Glucose (Glutose) 22.5 gm Q15M PRN PO DECREASED GLUCOSE; Start 04/08/17 at 20: 00 Dextrose (D50w Syringe) 25 ml Q15M PRN IV DECREASED GLUCOSE Last administered on 04/23/17 00:46; Admin Dose 25 ML; Start 04/08/17 at 20:00 Dextrose (D50w Syringe) 50 ml Q15M PRN IV DECREASED GLUCOSE Last administered on 04/23/17 05:50; Admin Dose 50 ML; Start 04/08/17 at 20:00 Glucagon (Glucagen) 1 mg Q15M PRN IM DECREASED GLUCOSE; Start 04/08/17 at 20:00 Glucose (Glutose) 15 gm Q15M PRN BUCCAL DECREASED GLUCOSE; Start 04/08/17 at 20 :00 Collagenase (Santyl) 1 applic DAILY TOP Last administered on 04/23/17 09:00; Admin Dose 1 APPLIC; Start 04/09/17 at 14:00 Collagenase (Santyl) 1 applic DAILY PRN TOP WHEN SOILED; Start 04/09/17 at 13: 00 IV Flush (NS 10 ml) 10 ml PRN PRN IV FLUSH LINE; Start 04/10/17 at 16:30 Gentamicin Sulfate (Gentamicin Iv Per Pharmacy) GENTAMICIN PER PHARMACY NOTE XX ; Start 04/11/17 at 10:30 Metoclopramide HCl (Reglan Liq) 5 mg Q8 PO Last administered on 04/23/17 05:38 ; Admin Dose 5 MG; Start 04/12/17 at 08:30 Povidone Iodine (Povidone-Iodine) 1 applic DAILY TOP Last administered on 09:00; Admin Dose 1 APPLIC; Start 04/12/17 at 11:30 Insulin Aspart (Novolog Insulin Pen) NOVOLOG *MODERATE* ALGORI... Q4 SC Last administered on 04/22/17 16:44; Admin Dose 2 UNIT; Start 04/17/17 at 09:00 Acetaminophen (Tylenol Liquid) 650 mg Q6 PRN GTB PAIN AND OR ELEVATED TEMP Last administered on 04/22/17 00:39; Admin Dose 650 MG; Start 04/17/17 at 11:30 Lisinopril (Zestril) 2.5 mg DAILY GTB ; Start 04/23/17 at 09:00 Carvedilol (Coreg) 3.125 mg BID GTB ; Start 04/22/17 at 21:00 Insulin Detemir (Levemir) 4 unit BID SC ; Start 04/23/17 at 09:00 KETAN VELEZ Apr 23, 2017 11:21
--- NOTE | 2017-04-23 11:57 | CONS ---
Date/Time of Note Date/Time of Note DATE: 04/23/17 TIME: 11:56 Assessment/Plan Assessment/Plan Chief Complaint/Hosp Course - septic shock due to bacteremia (Klebsiella) - resolved - bacteremia due to klebsiella, likely from PNA - complicated UTI due to enterobacter - possible HCAP due to klebsiella and pseudomonas, with moderate pleural effusion - acute toxic metabolic encephalopathy - improving - rectal bleeding at [facility] prior to admission, possibly due to radiation proctitis. So far no bleeding after arrival - normocytic anemia - h/o anal CA s/p radiation - diverticulosis without diverticulitis on CT - mild ascites - bloody secretion via trach, possible due to CHF - pulm edema and volume overload - ESRD on HD, via permacath on R chest wall. 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 - ventilator dependent resp failure s/p tracheostomy placement - G tube dependent status - diarrhea; C diff negative - resolved - reported allergy to penicillin and sulfa drugs - reactions unknown - s/p meropenem 04/08/17-04/18/17 recommendations: - panculture for temp >100.4 F - continue gentamicin (04/11/2017-) for pseudomonas, klebsiella and enterobacter ; anticipate 14 day course - check procalcitonin - recommend orthopedic/neurosurgery consult re: potential destructive change at the L4-5 disk space with apparent posterior retropulsion of portion of artificial disk (seen on CT) Problems: Consultation Date/Type/Reason Admit Date/Time Apr 08, 2017 at 16:19 Initial Consult Date 04/09/17 Type of Consultation: id Referring Provider: IVAN MALLOY MD Exam/Review of Systems Vital Signs Vitals Vital Signs Date Time Temp Pulse Resp B/P Pulse Ox O2 Delivery O2 Flow Rate FiO2 04/23/17 08:23 90 04/23/17 07:15 98.2 16 100/59 98 04/23/17 05:32 30 04/19/17 18:38 Mechanical Ventilator Intake and Output 04/22/17 04/22/17 04/23/17 15:00 23:00 07:00 Intake Total 1010 ml 580 ml Output Total 3080 ml 0 ml Balance -2070 ml 580 ml Exam Constitutional: alert, oriented, well developed Psych: nl mood/affect, no complaints Head: atraumatic, normocephalic Eyes: EOMI, PERRL, nl conjunctiva, nl lids, nl sclera Respiratory: congested cough, diminished breath sounds Gastrointestinal: nl liver, spleen, non-tender, soft Results Result Diagram: 04/23/17 0535 04/23/17 0535 Results 24 hrs Laboratory Tests Test 04/22/17 12:56 04/22/17 16:37 04/22/17 21:16 04/23/17 00:38 Bedside Glucose 194 167 109 69 L Test 04/23/17 01:06 04/23/17 01:25 04/23/17 05:35 04/23/17 05:44 Bedside Glucose 127 92 44 *L White Blood Count 9.8 Red Blood Count 3.46 L Hemoglobin 10.3 L Hematocrit 31.6 L Mean Corpuscular Volume 91.3 Mean Corpuscular Hemoglobin 29.8 Mean Corpuscular Hemoglobin Concent 32.6 Red Cell Distribution Width 18.6 H Platelet Count 88 L Mean Platelet Volume 12.6 H Neutrophils % 86.8 H Lymphocytes % 6.7 L Monocytes % 5.3 Eosinophils % 0.0 Basophils % 0.1 Nucleated Red Blood Cells % 0.0 Neutrophils # 8.5 H Lymphocytes # 0.7 L Monocytes # 0.5 Eosinophils # 0.0 Basophils # 0.0 Nucleated Red Blood Cells # 0.0 Sodium Level 142 Potassium Level 3.6 Chloride Level 101 Carbon Dioxide Level 28 Anion Gap 17 H Blood Urea Nitrogen 53 H Creatinine 2.07 H Glucose Level 42 #*L Calcium Level 8.0 L Test 04/23/17 06:06 04/23/17 06:19 04/23/17 10:41 Bedside Glucose 128 113 88 Medications Medications Current Medications Atorvastatin Calcium (Lipitor) 20 mg QHS GTB Last administered on 04/22/17 21: 13; Admin Dose 20 MG; Start 04/08/17 at 21:00 Acetaminophen/ Hydrocodone Bitart ([place] (5/325)) 1 tab Q6H PRN GTB SEVERE PAIN LEVEL 7-10 Last administered on 04/22/17 23:35; Admin Dose 1 TAB; Start at 19:30 Albuterol/ Ipratropium (Duoneb) 3 ml Q2H PRN NEB SHORTNESS OF BREATH; Start at 19:30 Levothyroxine Sodium (Synthroid) 125 mcg DAILY@06 GTB Last administered on 05:38; Admin Dose 125 MCG; Start 04/09/17 at 06:00 Multivit/Ca Carb/ B Cmplx/FA/Prenat (Shayla-Anuardha) 1 tab DAILY GTB Last administered on 04/23/17 10:10; Admin Dose 1 TAB; Start 04/09/17 at 09:00 Quetiapine Fumarate (Seroquel) 25 mg BID GTB Last administered on 04/23/17 10: 14; Admin Dose 25 MG; Start 04/08/17 at 21:00 Trazodone HCl (Desyrel) 25 mg QHS PO Last administered on 04/22/17 21:14; Admin Dose 25 MG; Start 04/08/17 at 21:00 Acetaminophen (Tylenol Tab) 650 mg Q4H PRN PO PAIN AND OR ELEVATED TEMP; Start 04/08/17 at 19:30 Morphine Sulfate (morphine) 2 mg Q4H PRN IV PAIN LEVEL 8-10 Last administered on 04/23/17 01:26; Admin Dose 2 MG; Start 04/08/17 at 19:30 Miscellaneous Information 1 ea NOTE XX ; Start 04/08/17 at 20:00 Glucose (Glutose) 15 gm Q15M PRN PO DECREASED GLUCOSE; Start 04/08/17 at 20:00 Glucose (Glutose) 22.5 gm Q15M PRN PO DECREASED GLUCOSE; Start 04/08/17 at 20: 00 Dextrose (D50w Syringe) 25 ml Q15M PRN IV DECREASED GLUCOSE Last administered on 04/23/17 00:46; Admin Dose 25 ML; Start 04/08/17 at 20:00 Dextrose (D50w Syringe) 50 ml Q15M PRN IV DECREASED GLUCOSE Last administered on 04/23/17 05:50; Admin Dose 50 ML; Start 04/08/17 at 20:00 Glucagon (Glucagen) 1 mg Q15M PRN IM DECREASED GLUCOSE; Start 04/08/17 at 20:00 Glucose (Glutose) 15 gm Q15M PRN BUCCAL DECREASED GLUCOSE; Start 04/08/17 at 20 :00 Collagenase (Santyl) 1 applic DAILY TOP Last administered on 04/23/17 09:00; Admin Dose 1 APPLIC; Start 04/09/17 at 14:00 Collagenase (Santyl) 1 applic DAILY PRN TOP WHEN SOILED; Start 04/09/17 at 13: 00 IV Flush (NS 10 ml) 10 ml PRN PRN IV FLUSH LINE; Start 04/10/17 at 16:30 Gentamicin Sulfate (Gentamicin Iv Per Pharmacy) GENTAMICIN PER PHARMACY NOTE XX ; Start 04/11/17 at 10:30 Metoclopramide HCl (Reglan Liq) 5 mg Q8 PO Last administered on 04/23/17 05:38 ; Admin Dose 5 MG; Start 04/12/17 at 08:30 Povidone Iodine (Povidone-Iodine) 1 applic DAILY TOP Last administered on 09:00; Admin Dose 1 APPLIC; Start 04/12/17 at 11:30 Insulin Aspart (Novolog Insulin Pen) NOVOLOG *MODERATE* ALGORI... Q4 SC Last administered on 04/22/17 16:44; Admin Dose 2 UNIT; Start 04/17/17 at 09:00 Acetaminophen (Tylenol Liquid) 650 mg Q6 PRN GTB PAIN AND OR ELEVATED TEMP Last administered on 04/22/17 00:39; Admin Dose 650 MG; Start 04/17/17 at 11:30 Lisinopril (Zestril) 2.5 mg DAILY GTB ; Start 04/23/17 at 09:00 Carvedilol (Coreg) 3.125 mg BID GTB ; Start 04/22/17 at 21:00 Insulin Detemir (Levemir) 4 unit BID SC ; Start 04/23/17 at 09:00 PATY BOND MD Apr 23, 2017 11:57
--- NOTE | 2017-04-23 12:49 | CONS ---
Date/Time of Note Date/Time of Note DATE: 04/23/17 TIME: 12:48 Assessment/Plan Assessment/Plan Chief Complaint/Hosp Course 66-year-old female with a history of end-stage renal disease on dialysis, status post trach on vent, status post PEG, admitted to the intensive care unit for sepsis. Patient also had a rectal bleeding. GI consult was called in for abdominal distention. Patient had both KUB and CAT scan done within the last few days CAT scan was negative for any acute pathology. Patient had some ascites and anasarca. KUB also was negative. Patient is on G-tube feeding at 10 cc/h. Her residual has been around 10 cc. No active bleeding has been noted by the staff in ICU. Problems: Additional Assessment/Plan Additional Assessment/Plan 1. Sepsis. 2. Coronary artery disease with systolic heart failure. Continue hemodialysis to remove fluids. 3. Coronary artery disease, status post coronary artery bypass graft. 4. Dysphagia on tube feeds 5. Respiratory failure. Continue vent support. Will obtain a pulmonary consult from [facility]. 6. abdominal distension: CT unrevealing, minimal residual. 7. Anal cancer with recent rectal bleed. Status post radiation treatment. Her rectal bleeding is most probably from radiation proctitis 8. History of pulseless electrical activity with possible anoxic encephalopathy. Will continue to monitor. 9. History of GI bleed. 10. Dyslipidemia. 11. Anasarca, and ascites 12. Renal failure on dialysis 13. Encephalopathy, resolved patient is alert awake and oriented 14. Anemia multifactorial, stable now Plan increase lansoprazole to bid dosing Continue antibiotic continue tube feeding through the G-tube at 40 cc/h, which patient is tolerating well More fluid to be removed during dialysis. Patient has responded well the swelling has come down Anasarca also has reduced flush G tube with coke TID Consultation Date/Type/Reason Admit Date/Time Apr 08, 2017 at 16:19 Initial Consult Date 04/09/17 Type of Consultation: id Referring Provider: IVAN MALLOY MD 24 HR Interval Summary Constitutional: improved, no complaints Exam/Review of Systems Vital Signs Vitals Vital Signs Date Time Temp Pulse Resp B/P Pulse Ox O2 Delivery O2 Flow Rate FiO2 04/23/17 12:14 92 04/23/17 12:00 97.8 18 105/55 97 04/23/17 09:00 30 7/4/17 18:38 Mechanical Ventilator Intake and Output 04/22/17 04/22/17 04/23/17 15:00 23:00 07:00 Intake Total 1010 ml 580 ml Output Total 3080 ml 0 ml Balance -2070 ml 580 ml Exam Constitutional: alert, oriented, well developed Psych: nl mood/affect, no complaints Head: atraumatic, normocephalic Eyes: EOMI, PERRL, nl conjunctiva, nl lids, nl sclera ENMT: nl external ears & nose, nl lips & teeth, nl nasal mucosa & septum Neck: non-tender, supple Respiratory: clear to auscultation, normal air movement Cardiovascular: nl pulses, regular rate and rhythm Gastrointestinal: nl liver, spleen, non-tender, soft Musculoskeletal: nl extremities to inspection, nl gait and stance Extremities: normal pulses Neurological: CARE TRANSITION MGR II-XII intact, nl mental status, nl speech, nl strength Skin: nl turgor, No rash or lesions Lymph: nl lymph nodes Results Result Diagram: 04/23/17 0535 04/23/17 0535 Results 24 hrs Laboratory Tests Test 04/22/17 12:56 04/22/17 16:37 04/22/17 21:16 04/23/17 00:38 Bedside Glucose 194 167 109 69 L Test 04/23/17 01:06 04/23/17 01:25 04/23/17 05:35 04/23/17 05:44 Bedside Glucose 127 92 44 *L White Blood Count 9.8 Red Blood Count 3.46 L Hemoglobin 10.3 L Hematocrit 31.6 L Mean Corpuscular Volume 91.3 Mean Corpuscular Hemoglobin 29.8 Mean Corpuscular Hemoglobin Concent 32.6 Red Cell Distribution Width 18.6 H Platelet Count 88 L Mean Platelet Volume 12.6 H Neutrophils % 86.8 H Lymphocytes % 6.7 L Monocytes % 5.3 Eosinophils % 0.0 Basophils % 0.1 Nucleated Red Blood Cells % 0.0 Neutrophils # 8.5 H Lymphocytes # 0.7 L Monocytes # 0.5 Eosinophils # 0.0 Basophils # 0.0 Nucleated Red Blood Cells # 0.0 Sodium Level 142 Potassium Level 3.6 Chloride Level 101 Carbon Dioxide Level 28 Anion Gap 17 H Blood Urea Nitrogen 53 H Creatinine 2.07 H Glucose Level 42 #*L Calcium Level 8.0 L Test 04/23/17 06:06 04/23/17 06:19 04/23/17 10:41 Bedside Glucose 128 113 88 Medications Medications Current Medications Atorvastatin Calcium (Lipitor) 20 mg QHS GTB Last administered on 04/22/17 21: 13; Admin Dose 20 MG; Start 04/08/17 at 21:00 Acetaminophen/ Hydrocodone Bitart ([place] (5/325)) 1 tab Q6H PRN GTB SEVERE PAIN LEVEL 7-10 Last administered on 04/22/17 23:35; Admin Dose 1 TAB; Start at 19:30 Albuterol/ Ipratropium (Duoneb) 3 ml Q2H PRN NEB SHORTNESS OF BREATH; Start at 19:30 Levothyroxine Sodium (Synthroid) 125 mcg DAILY@06 GTB Last administered on 05:38; Admin Dose 125 MCG; Start 04/09/17 at 06:00 Multivit/Ca Carb/ B Cmplx/FA/Prenat (Shayla-Anuradha) 1 tab DAILY GTB Last administered on 04/23/17 10:10; Admin Dose 1 TAB; Start 04/09/17 at 09:00 Quetiapine Fumarate (Seroquel) 25 mg BID GTB Last administered on 04/23/17 10: 14; Admin Dose 25 MG; Start 04/08/17 at 21:00 Trazodone HCl (Desyrel) 25 mg QHS PO Last administered on 04/22/17 21:14; Admin Dose 25 MG; Start 04/08/17 at 21:00 Acetaminophen (Tylenol Tab) 650 mg Q4H PRN PO PAIN AND OR ELEVATED TEMP; Start 04/08/17 at 19:30 Morphine Sulfate (morphine) 2 mg Q4H PRN IV PAIN LEVEL 8-10 Last administered on 04/23/17 01:26; Admin Dose 2 MG; Start 04/08/17 at 19:30 Miscellaneous Information 1 ea NOTE XX ; Start 04/08/17 at 20:00 Glucose (Glutose) 15 gm Q15M PRN PO DECREASED GLUCOSE; Start 04/08/17 at 20:00 Glucose (Glutose) 22.5 gm Q15M PRN PO DECREASED GLUCOSE; Start 04/08/17 at 20: 00 Dextrose (D50w Syringe) 25 ml Q15M PRN IV DECREASED GLUCOSE Last administered on 04/23/17 00:46; Admin Dose 25 ML; Start 04/08/17 at 20:00 Dextrose (D50w Syringe) 50 ml Q15M PRN IV DECREASED GLUCOSE Last administered on 04/23/17 05:50; Admin Dose 50 ML; Start 04/08/17 at 20:00 Glucagon (Glucagen) 1 mg Q15M PRN IM DECREASED GLUCOSE; Start 04/08/17 at 20:00 Glucose (Glutose) 15 gm Q15M PRN BUCCAL DECREASED GLUCOSE; Start 04/08/17 at 20 :00 Collagenase (Santyl) 1 applic DAILY TOP Last administered on 04/23/17 09:00; Admin Dose 1 APPLIC; Start 04/09/17 at 14:00 Collagenase (Santyl) 1 applic DAILY PRN TOP WHEN SOILED; Start 04/09/17 at 13: 00 IV Flush (NS 10 ml) 10 ml PRN PRN IV FLUSH LINE; Start 04/10/17 at 16:30 Gentamicin Sulfate (Gentamicin Iv Per Pharmacy) GENTAMICIN PER PHARMACY NOTE XX ; Start 04/11/17 at 10:30 Metoclopramide HCl (Reglan Liq) 5 mg Q8 PO Last administered on 04/23/17 05:38 ; Admin Dose 5 MG; Start 04/12/17 at 08:30 Povidone Iodine (Povidone-Iodine) 1 applic DAILY TOP Last administered on 09:00; Admin Dose 1 APPLIC; Start 04/12/17 at 11:30 Insulin Aspart (Novolog Insulin Pen) NOVOLOG *MODERATE* ALGORI... Q4 SC Last administered on 04/22/17 16:44; Admin Dose 2 UNIT; Start 04/17/17 at 09:00 Acetaminophen (Tylenol Liquid) 650 mg Q6 PRN GTB PAIN AND OR ELEVATED TEMP Last administered on 04/22/17 00:39; Admin Dose 650 MG; Start 04/17/17 at 11:30 Lisinopril (Zestril) 2.5 mg DAILY GTB ; Start 04/23/17 at 09:00 Carvedilol (Coreg) 3.125 mg BID GTB ; Start 04/22/17 at 21:00 Insulin Detemir (Levemir) 4 unit BID SC ; Start 04/23/17 at 09:00 KAIN HOWELL MD Apr 23, 2017 12:49
--- NOTE | 2017-04-23 18:00 | CONS ---
Date/Time of Note Date/Time of Note DATE: 04/23/17 TIME: 17:58 Consult Date/Type/Reason Admit Date/Time Apr 08, 2017 at 16:19 Initial Consult Date 04/09/17 Type of Consultation: Pulm Ordering Provider: IVAN MALLOY MD Subjective No events. Objective Vital Signs Date Time Temp Pulse Resp B/P Pulse Ox O2 Delivery O2 Flow Rate FiO2 04/23/17 16:55 91 04/23/17 15:12 98.2 16 125/60 97 04/23/17 09:00 30 04/19/17 18:38 Mechanical Ventilator Intake and Output 04/22/17 04/22/17 04/23/17 15:00 23:00 07:00 Intake Total 1010 ml 580 ml Output Total 3080 ml 0 ml Balance -2070 ml 580 ml Exam HEENT: Pupils equal, round, and reactive to light. Tracheostomy site clean and intact. CARDIAC: S1, S2, 1/6 systolic ejection murmur CHEST: Diminished air entry bilaterally. ABDOMEN: Mildly distended. Bowel sounds present no guarding or rebound EXTREMITIES: No cyanosis, clubbing edema +1 Results/Medications Result Diagram: 04/23/17 0535 04/23/17 0535 Results 24 hrs Laboratory Tests Test 04/22/17 21:16 04/23/17 00:38 04/23/17 01:06 04/23/17 01:25 Bedside Glucose 109 69 L 127 92 Test 04/23/17 05:35 04/23/17 05:44 04/23/17 06:06 04/23/17 06:19 White Blood Count 9.8 Red Blood Count 3.46 L Hemoglobin 10.3 L Hematocrit 31.6 L Mean Corpuscular Volume 91.3 Mean Corpuscular Hemoglobin 29.8 Mean Corpuscular Hemoglobin Concent 32.6 Red Cell Distribution Width 18.6 H Platelet Count 88 L Mean Platelet Volume 12.6 H Neutrophils % 86.8 H Lymphocytes % 6.7 L Monocytes % 5.3 Eosinophils % 0.0 Basophils % 0.1 Nucleated Red Blood Cells % 0.0 Neutrophils # 8.5 H Lymphocytes # 0.7 L Monocytes # 0.5 Eosinophils # 0.0 Basophils # 0.0 Nucleated Red Blood Cells # 0.0 Sodium Level 142 Potassium Level 3.6 Chloride Level 101 Carbon Dioxide Level 28 Anion Gap 17 H Blood Urea Nitrogen 53 H Creatinine 2.07 H Glucose Level 42 #*L Calcium Level 8.0 L Bedside Glucose 44 *L 128 113 Test 04/23/17 10:41 04/23/17 13:05 04/23/17 16:42 Bedside Glucose 88 164 225 H Medications Current Medications Atorvastatin Calcium (Lipitor) 20 mg QHS GTB Last administered on 04/22/17 21: 13; Admin Dose 20 MG; Start 04/08/17 at 21:00 Acetaminophen/ Hydrocodone Bitart ([place] (5/325)) 1 tab Q6H PRN GTB SEVERE PAIN LEVEL 7-10 Last administered on 04/22/17 23:35; Admin Dose 1 TAB; Start at 19:30 Albuterol/ Ipratropium (Duoneb) 3 ml Q2H PRN NEB SHORTNESS OF BREATH; Start at 19:30 Levothyroxine Sodium (Synthroid) 125 mcg DAILY@06 GTB Last administered on 05:38; Admin Dose 125 MCG; Start 04/09/17 at 06:00 Multivit/Ca Carb/ B Cmplx/FA/Prenat (Shayla-Anuradha) 1 tab DAILY GTB Last administered on 04/23/17 10:10; Admin Dose 1 TAB; Start 04/09/17 at 09:00 Quetiapine Fumarate (Seroquel) 25 mg BID GTB Last administered on 04/23/17 10: 14; Admin Dose 25 MG; Start 04/08/17 at 21:00 Trazodone HCl (Desyrel) 25 mg QHS PO Last administered on 04/22/17 21:14; Admin Dose 25 MG; Start 04/08/17 at 21:00 Acetaminophen (Tylenol Tab) 650 mg Q4H PRN PO PAIN AND OR ELEVATED TEMP; Start 04/08/17 at 19:30 Morphine Sulfate (morphine) 2 mg Q4H PRN IV PAIN LEVEL 8-10 Last administered on 04/23/17 16:57; Admin Dose 2 MG; Start 04/08/17 at 19:30 Miscellaneous Information 1 ea NOTE XX ; Start 04/08/17 at 20:00 Glucose (Glutose) 15 gm Q15M PRN PO DECREASED GLUCOSE; Start 04/08/17 at 20:00 Glucose (Glutose) 22.5 gm Q15M PRN PO DECREASED GLUCOSE; Start 04/08/17 at 20: 00 Dextrose (D50w Syringe) 25 ml Q15M PRN IV DECREASED GLUCOSE Last administered on 04/23/17 00:46; Admin Dose 25 ML; Start 04/08/17 at 20:00 Dextrose (D50w Syringe) 50 ml Q15M PRN IV DECREASED GLUCOSE Last administered on 04/23/17 05:50; Admin Dose 50 ML; Start 04/08/17 at 20:00 Glucagon (Glucagen) 1 mg Q15M PRN IM DECREASED GLUCOSE; Start 04/08/17 at 20:00 Glucose (Glutose) 15 gm Q15M PRN BUCCAL DECREASED GLUCOSE; Start 04/08/17 at 20 :00 Collagenase (Santyl) 1 applic DAILY TOP Last administered on 04/23/17 09:00; Admin Dose 1 APPLIC; Start 04/09/17 at 14:00 Collagenase (Santyl) 1 applic DAILY PRN TOP WHEN SOILED; Start 04/09/17 at 13: 00 IV Flush (NS 10 ml) 10 ml PRN PRN IV FLUSH LINE; Start 04/10/17 at 16:30 Gentamicin Sulfate (Gentamicin Iv Per Pharmacy) GENTAMICIN PER PHARMACY NOTE XX ; Start 04/11/17 at 10:30 Metoclopramide HCl (Reglan Liq) 5 mg Q8 PO Last administered on 04/23/17 13:24 ; Admin Dose 5 MG; Start 04/12/17 at 08:30 Povidone Iodine (Povidone-Iodine) 1 applic DAILY TOP Last administered on 09:00; Admin Dose 1 APPLIC; Start 04/12/17 at 11:30 Insulin Aspart (Novolog Insulin Pen) NOVOLOG *MODERATE* ALGORI... Q4 SC Last administered on 04/23/17 16:45; Admin Dose 6 UNIT; Start 04/17/17 at 09:00 Acetaminophen (Tylenol Liquid) 650 mg Q6 PRN GTB PAIN AND OR ELEVATED TEMP Last administered on 04/22/17 00:39; Admin Dose 650 MG; Start 04/17/17 at 11:30 Lisinopril (Zestril) 2.5 mg DAILY GTB ; Start 04/23/17 at 09:00 Carvedilol (Coreg) 3.125 mg BID GTB ; Start 04/22/17 at 21:00 Insulin Detemir (Levemir) 4 unit BID SC ; Start 04/23/17 at 09:00 Assessment/Plan Additional Assessment/Plan IMP: 1. Status post septic shock with klebsiella bacteremia 2. VDRF 3. ESRD on HD 4. CHF with tachycardia 5. Encephalopathy resolving RECS: 1. Follow glucose and electrolytes 2. Continue HD/UF 3. Abx per ID 4. Continue tube feeding as tolerated KELLY MALCOLM MD Apr 23, 2017 17:59
[2017-04-23] MEDS: ATORVASTATIN 20 MG TAB GTB SCH (21:06)
[2017-04-23] MEDS: traZODone 50 MG TAB PO SCH (21:06)
[2017-04-24] VITALS (23 sets, daily range): BP systolic 93–154; BP diastolic 46–65; PULSE 81–88; RESP 14–22
[2017-04-24] MEDS: INSULIN ASPART [NOVOLOG] 3 ML PEN SC SCH ×6 (00:36→21:23)
[2017-04-24] MEDS: HYDROCODONE/APAP (5/325) TAB GTB PRN (04:33)
[2017-04-24] MEDS: LEVOTHYROXINE 125 MCG TAB GTB SCH (05:48)
[2017-04-24] MEDS: METOCLOPRAMIDE (1 MG/ML) 10 ML CUP PO SCH ×3 (05:48→22:00)
[2017-04-24] MEDS: LISINOPRIL 5 MG TAB GTB SCH (09:00)
[2017-04-24] MEDS: MULTIVIT/CA CARB/B CMPLX/FA TAB GTB SCH (09:17)
[2017-04-24] MEDS: LANSOPRAZOLE 30 MG CAP GTB SCH ×2 (09:17→16:45)
[2017-04-24] MEDS: QUETIAPINE 25 MG TAB GTB SCH ×2 (09:19→21:15)
[2017-04-24] MEDS: INSULIN DETEMIR [LEVEMIR] 3ML CART SC SCH ×2 (09:28→21:24)
[2017-04-24] MEDS: POVIDONE IODINE 10% 28.4 GM OINT TOP SCH (09:32)
[2017-04-24] MEDS: COLLAGENASE 30 GM TUBE TOP SCH (09:33)
--- NOTE | 2017-04-24 11:26 | CONS ---
Date/Time of Note Date/Time of Note DATE: 04/24/17 TIME: 11:23 Consult Date/Type/Reason Admit Date/Time Apr 08, 2017 at 16:19 Initial Consult Date 04/09/17 Type of Consultation: neph Ordering Provider: IVAN MALLOY MD Subjective Patient seen and examined. Stable. on hd today. HEENT: Head is normocephalic. Pupils are reactive to light. NECK: Supple. HEART: Regular rate. LUNGS: Show diminished breath sounds at base. ABDOMEN: Soft, nontender to palpation. No rebound or guarding. EXTREMITIES: Negative for clubbing, cyanosis,. Positive edema. DERMATOLOGIC: No rashes. MUSCULOSKELETAL: No joint effusions. NEUROLOGIC: No change in exam. Objective Vital Signs Date Time Temp Pulse Resp B/P Pulse Ox O2 Delivery O2 Flow Rate FiO2 04/24/17 11:14 97.7 86 16 101/50 100 04/24/17 07:22 30 Intake and Output 04/23/17 04/23/17 04/24/17 15:00 23:00 07:00 Intake Total 690 ml 730 ml Output Total 50 ml 0 ml Balance 640 ml 730 ml Results/Medications Result Diagram: 04/23/17 0535 04/23/17 0535 Results 24 hrs Laboratory Tests Test 04/23/17 13:05 04/23/17 16:42 04/23/17 20:41 04/24/17 00:31 Bedside Glucose 164 225 H 247 H 224 H Test 04/24/17 05:14 04/24/17 09:24 Bedside Glucose 117 125 Medications Current Medications Atorvastatin Calcium (Lipitor) 20 mg QHS GTB Last administered on 04/23/17 21: 06; Admin Dose 20 MG; Start 04/08/17 at 21:00 Acetaminophen/ Hydrocodone Bitart ([place] (5/325)) 1 tab Q6H PRN GTB SEVERE PAIN LEVEL 7-10 Last administered on 04/24/17 04:33; Admin Dose 1 TAB; Start at 19:30 Albuterol/ Ipratropium (Duoneb) 3 ml Q2H PRN NEB SHORTNESS OF BREATH; Start at 19:30 Levothyroxine Sodium (Synthroid) 125 mcg DAILY@06 GTB Last administered on 05:48; Admin Dose 125 MCG; Start 04/09/17 at 06:00 Multivit/Ca Carb/ B Cmplx/FA/Prenat (Shayla-Anuradha) 1 tab DAILY GTB Last administered on 04/24/17 09:17; Admin Dose 1 TAB; Start 04/09/17 at 09:00 Quetiapine Fumarate (Seroquel) 25 mg BID GTB Last administered on 04/24/17 09: 19; Admin Dose 25 MG; Start 04/08/17 at 21:00 Trazodone HCl (Desyrel) 25 mg QHS PO Last administered on 04/23/17 21:06; Admin Dose 25 MG; Start 04/08/17 at 21:00 Acetaminophen (Tylenol Tab) 650 mg Q4H PRN PO PAIN AND OR ELEVATED TEMP; Start 04/08/17 at 19:30 Morphine Sulfate (morphine) 2 mg Q4H PRN IV PAIN LEVEL 8-10 Last administered on 04/23/17 16:57; Admin Dose 2 MG; Start 04/08/17 at 19:30 Miscellaneous Information 1 ea NOTE XX ; Start 04/08/17 at 20:00 Glucose (Glutose) 15 gm Q15M PRN PO DECREASED GLUCOSE; Start 04/08/17 at 20:00 Glucose (Glutose) 22.5 gm Q15M PRN PO DECREASED GLUCOSE; Start 04/08/17 at 20: 00 Dextrose (D50w Syringe) 25 ml Q15M PRN IV DECREASED GLUCOSE Last administered on 04/23/17 00:46; Admin Dose 25 ML; Start 04/08/17 at 20:00 Dextrose (D50w Syringe) 50 ml Q15M PRN IV DECREASED GLUCOSE Last administered on 04/23/17 05:50; Admin Dose 50 ML; Start 04/08/17 at 20:00 Glucagon (Glucagen) 1 mg Q15M PRN IM DECREASED GLUCOSE; Start 04/08/17 at 20:00 Glucose (Glutose) 15 gm Q15M PRN BUCCAL DECREASED GLUCOSE; Start 04/08/17 at 20 :00 Collagenase (Santyl) 1 applic DAILY TOP Last administered on 04/24/17 09:33; Admin Dose 1 APPLIC; Start 04/09/17 at 14:00 Collagenase (Santyl) 1 applic DAILY PRN TOP WHEN SOILED; Start 04/09/17 at 13: 00 IV Flush (NS 10 ml) 10 ml PRN PRN IV FLUSH LINE; Start 04/10/17 at 16:30 Gentamicin Sulfate (Gentamicin Iv Per Pharmacy) GENTAMICIN PER PHARMACY NOTE XX ; Start 04/11/17 at 10:30 Metoclopramide HCl (Reglan Liq) 5 mg Q8 PO Last administered on 04/24/17 05:48 ; Admin Dose 5 MG; Start 04/12/17 at 08:30 Povidone Iodine (Povidone-Iodine) 1 applic DAILY TOP Last administered on 09:32; Admin Dose 1 APPLIC; Start 04/12/17 at 11:30 Insulin Aspart (Novolog Insulin Pen) NOVOLOG *MODERATE* ALGORI... Q4 SC Last administered on 04/24/17 00:36; Admin Dose 6 UNIT; Start 04/17/17 at 09:00 Acetaminophen (Tylenol Liquid) 650 mg Q6 PRN GTB PAIN AND OR ELEVATED TEMP Last administered on 04/22/17 00:39; Admin Dose 650 MG; Start 04/17/17 at 11:30 Lisinopril (Zestril) 2.5 mg DAILY GTB ; Start 04/23/17 at 09:00 Carvedilol (Coreg) 3.125 mg BID GTB ; Start 04/22/17 at 21:00 Insulin Detemir (Levemir) 4 unit BID SC Last administered on 04/24/17 09:28; Admin Dose 4 UNIT; Start 04/23/17 at 09:00 Assessment/Plan Chief Complaint/Hosp Course 1. End-stage renal disease. The patient is receiving daily dialysis for solute clearance and volume removal. - Plan for hemodialysis on qod schedule. 2. Anemia of chronic disease. With GI bleeding. continue to monitor hemoglobin and hematocrit levels. -We will transfuse to keep hemoglobin above 8 3. Mineral bone disorder. Monitor calcium phosphorus levels 4. Hyponatremia secondary to end-stage renal disease. Limit free water. HD 140 sodium bath and improved. 5. Hypokalemia, - replete with potassium chloride 6. Septic shock, etiology is multifactorial secondary to urinary tract infection and pneumonia. Continue current broad spectrum antibiotics, continue pressor support. 7. Ventilator dependent respiratory failure. Vent settings have been reviewed. ABG have been reviewed. Continue to monitor. 8. Dysphagia status post percutaneous endoscopic gastrostomy. Continue tube feeding. 9. History of coronary artery disease. 10. Diabetes. Continue Accu-Cheks and sliding scale. 11. Hypothyroidism. Continue Synthroid. 12. History of anal cancer. 13. Acute on chronic encephalopathy, etiology is toxic metabolic. Continue to monitor. 14. Volume overload secondary to congestive heart failure, end-stage renal disease. Continue ultrafiltration with dialysis. Problems: KEN STAHL MD Apr 24, 2017 11:25
--- NOTE | 2017-04-24 11:35 | PN ---
Date/Time of Note Date/Time of Note DATE: 04/24/17 TIME: 11:34 Assessment/Plan VTE Prophylaxis VTE Prophylaxis Intervention: other Lines/Catheters IV Catheter Type (from Nrsg): permacath Urinary Cath still in place: Yes Reason Cath still needed: skin wounds contaminated by urine Assessment/Plan Chief Complaint/Hosp Course - Septic shock with Klebsiella bacteremia. Continue antibiotics per ID. Dr. Thurston group is following in infection disease consultation. - Acute respiratory failure. Continue ventilatory support. - Diabetes mellitus. Continue Levemir and NovoLog. - Systolic heart failure. Continue hemodialysis for fluid removal. - End-stage renal disease. Continue hemodialysis. - Anoxic encephalopathy. No acute issues. - Anemia of chronic disease. Continue Epogen. - Hypothyroidism. Continue Synthroid. - Dyslipidemia. Continue Lipitor. - Possible history of psychosis. Continue Seroquel and trazodone. Problems: Subjective 24 Hr Interval Summary Free Text/Dictation Patient resting comfortably, trach in place Exam/Review of Systems Vital Signs Vitals Vital Signs Date Time Temp Pulse Resp B/P Pulse Ox O2 Delivery O2 Flow Rate FiO2 04/24/17 11:14 97.7 86 16 101/50 100 04/24/17 07:22 30 Intake and Output 04/23/17 04/23/17 04/24/17 15:00 23:00 07:00 Intake Total 690 ml 730 ml Output Total 50 ml 0 ml Balance 640 ml 730 ml Exam Constitutional: well developed Head: atraumatic, normocephalic Neck: supple Respiratory: diminished breath sounds Cardiovascular: regular rate and rhythm Gastrointestinal: non-tender, soft Extremities: normal pulses Results Result Diagram: 04/23/17 0535 04/23/17 0535 Results 24 hrs Laboratory Tests Test 04/23/17 13:05 04/23/17 16:42 04/23/17 20:41 04/24/17 00:31 Bedside Glucose 164 225 H 247 H 224 H Test 04/24/17 05:14 04/24/17 09:24 Bedside Glucose 117 125 Medications Medications Current Medications Atorvastatin Calcium (Lipitor) 20 mg QHS GTB Last administered on 04/23/17t 21: 06; Admin Dose 20 MG; Start 04/08/17 at 21:00 Acetaminophen/ Hydrocodone Bitart ([place] (5/325)) 1 tab Q6H PRN GTB SEVERE PAIN LEVEL 7-10 Last administered on 04/24/17 04:33; Admin Dose 1 TAB; Start at 19:30 Albuterol/ Ipratropium (Duoneb) 3 ml Q2H PRN NEB SHORTNESS OF BREATH; Start at 19:30 Levothyroxine Sodium (Synthroid) 125 mcg DAILY@06 GTB Last administered on 05:48; Admin Dose 125 MCG; Start 04/09/17 at 06:00 Multivit/Ca Carb/ B Cmplx/FA/Prenat (Shayla-Anuradah) 1 tab DAILY GTB Last administered on 04/24/17 09:17; Admin Dose 1 TAB; Start 04/09/17 at 09:00 Quetiapine Fumarate (Seroquel) 25 mg BID GTB Last administered on 04/24/17 09: 19; Admin Dose 25 MG; Start 04/08/17 at 21:00 Trazodone HCl (Desyrel) 25 mg QHS PO Last administered on 04/23/17 21:06; Admin Dose 25 MG; Start 04/08/17 at 21:00 Acetaminophen (Tylenol Tab) 650 mg Q4H PRN PO PAIN AND OR ELEVATED TEMP; Start 04/08/17 at 19:30 Morphine Sulfate (morphine) 2 mg Q4H PRN IV PAIN LEVEL 8-10 Last administered on 04/23/17 16:57; Admin Dose 2 MG; Start 04/08/17 at 19:30 Miscellaneous Information 1 ea NOTE XX ; Start 04/08/17 at 20:00 Glucose (Glutose) 15 gm Q15M PRN PO DECREASED GLUCOSE; Start 04/08/17 at 20:00 Glucose (Glutose) 22.5 gm Q15M PRN PO DECREASED GLUCOSE; Start 04/08/17 at 20: 00 Dextrose (D50w Syringe) 25 ml Q15M PRN IV DECREASED GLUCOSE Last administered on 04/23/17 00:46; Admin Dose 25 ML; Start 04/08/17 at 20:00 Dextrose (D50w Syringe) 50 ml Q15M PRN IV DECREASED GLUCOSE Last administered on 04/23/17 05:50; Admin Dose 50 ML; Start 04/08/17 at 20:00 Glucagon (Glucagen) 1 mg Q15M PRN IM DECREASED GLUCOSE; Start 04/08/17 at 20:00 Glucose (Glutose) 15 gm Q15M PRN BUCCAL DECREASED GLUCOSE; Start 04/08/17 at 20 :00 Collagenase (Santyl) 1 applic DAILY TOP Last administered on 04/24/17 09:33; Admin Dose 1 APPLIC; Start 04/09/17 at 14:00 Collagenase (Santyl) 1 applic DAILY PRN TOP WHEN SOILED; Start 04/09/17 at 13: 00 IV Flush (NS 10 ml) 10 ml PRN PRN IV FLUSH LINE; Start 04/10/17 at 16:30 Gentamicin Sulfate (Gentamicin Iv Per Pharmacy) GENTAMICIN PER PHARMACY NOTE XX ; Start 04/11/17 at 10:30 Metoclopramide HCl (Reglan Liq) 5 mg Q8 PO Last administered on 04/24/17 05:48 ; Admin Dose 5 MG; Start 04/12/17 at 08:30 Povidone Iodine (Povidone-Iodine) 1 applic DAILY TOP Last administered on 09:32; Admin Dose 1 APPLIC; Start 04/12/17 at 11:30 Insulin Aspart (Novolog Insulin Pen) NOVOLOG *MODERATE* ALGORI... Q4 SC Last administered on 04/24/17 00:36; Admin Dose 6 UNIT; Start 04/17/17 at 09:00 Acetaminophen (Tylenol Liquid) 650 mg Q6 PRN GTB PAIN AND OR ELEVATED TEMP Last administered on 04/22/17 00:39; Admin Dose 650 MG; Start 04/17/17 at 11:30 Lisinopril (Zestril) 2.5 mg DAILY GTB ; Start 04/23/17 at 09:00 Carvedilol (Coreg) 3.125 mg BID GTB ; Start 04/22/17 at 21:00 Insulin Detemir (Levemir) 4 unit BID SC Last administered on 04/24/17 09:28; Admin Dose 4 UNIT; Start 04/23/17 at 09:00 KETAN VELEZ Apr 24, 2017 11:34
--- NOTE | 2017-04-24 13:09 | CONS ---
Date/Time of Note Date/Time of Note DATE: 04/24/17 TIME: 12:03 Assessment/Plan Assessment/Plan Additional Assessment/Plan - septic shock due to bacteremia (Klebsiella) - resolved - bacteremia due to klebsiella, likely from PNA - complicated UTI due to enterobacter - possible HCAP due to klebsiella and pseudomonas, with moderate pleural effusion - acute toxic metabolic encephalopathy - improving - rectal bleeding at [facility] prior to admission, possibly due to radiation proctitis. So far no bleeding after arrival - normocytic anemia - h/o anal CA s/p radiation - diverticulosis without diverticulitis on CT - mild ascites - bloody secretion via trach, possible due to CHF - pulm edema and volume overload - ESRD on HD, via permacath on R chest wall. 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, possible gentamicin ototoxicity recommendations: - panculture for temp >100.4 F - stop gentamicin (04/11/2017-04/23/2017) for pseudomonas, klebsiella and enterobacter; anticipate 14 day course; Genta stopped due to possible left ear ototoxicity - check procalcitonin - recommend orthopedic/neurosurgery consult re: potential destructive change at the L4-5 disk space with apparent posterior retropulsion of portion of artificial disk (seen on CT) - recommend ENT consult- left ear hearing impairment- possible ototoxicity/left cerumenosis Juliana Thurston/ANASTACIO Guo/ patient Consultation Date/Type/Reason Admit Date/Time Apr 08, 2017 at 16:19 Initial Consult Date 04/09/17 Type of Consultation: neph Referring Provider: IVAN MALLOY MD 24 HR Interval Summary Free Text/Dictation alert, afebrile, comfortable on trach to vent -c/o left ear decreased hearing, denies pain, discharge. afebrile, denies any throat pain, dysphagia- dw staff - Otoscopic exam shower- plenty ear wax, unable to see left TM. ear canal- no erythema/discharge/excoriation. juliana Thurston- will stop Genta due to possible Genta ototoxicity. Staff to notify PMD. Exam/Review of Systems Vital Signs Vitals Vital Signs Date Time Temp Pulse Resp B/P Pulse Ox O2 Delivery O2 Flow Rate FiO2 04/24/17 11:14 97.7 86 16 101/50 100 04/24/17 07:22 30 Intake and Output 04/23/17 04/23/17 04/24/17 15:00 23:00 07:00 Intake Total 690 ml 730 ml Output Total 50 ml 0 ml Balance 640 ml 730 ml Exam Constitutional: alert, well developed Psych: nl mood/affect Respiratory: clear to auscultation, normal air movement, other (trach intact) Cardiovascular: nl pulses, regular rate and rhythm Gastrointestinal: non-tender, other (gt intact- tolerating feedings), soft Musculoskeletal: nl extremities to inspection Neurological: nl mental status, other (follows simple commands) Lymph: nontender Results Result Diagram: 04/23/17 0535 04/23/17 0535 Results 24 hrs Laboratory Tests Test 04/23/17 13:05 04/23/17 16:42 04/23/17 20:41 04/24/17 00:31 Bedside Glucose 164 225 H 247 H 224 H Test 04/24/17 05:14 04/24/17 09:24 Bedside Glucose 117 125 Medications Medications Current Medications Atorvastatin Calcium (Lipitor) 20 mg QHS GTB Last administered on 04/23/17 21: 06; Admin Dose 20 MG; Start 04/08/17 at 21:00 Acetaminophen/ Hydrocodone Bitart ([place] (5/325)) 1 tab Q6H PRN GTB SEVERE PAIN LEVEL 7-10 Last administered on 04/24/17 04:33; Admin Dose 1 TAB; Start at 19:30 Albuterol/ Ipratropium (Duoneb) 3 ml Q2H PRN NEB SHORTNESS OF BREATH; Start at 19:30 Levothyroxine Sodium (Synthroid) 125 mcg DAILY@06 GTB Last administered on 05:48; Admin Dose 125 MCG; Start 04/09/17 at 06:00 Multivit/Ca Carb/ B Cmplx/FA/Prenat (Shayla-Anuradha) 1 tab DAILY GTB Last administered on 04/24/17 09:17; Admin Dose 1 TAB; Start 04/09/17 at 09:00 Quetiapine Fumarate (Seroquel) 25 mg BID GTB Last administered on 04/24/17 09: 19; Admin Dose 25 MG; Start 04/08/17 at 21:00 Trazodone HCl (Desyrel) 25 mg QHS PO Last administered on 04/23/17 21:06; Admin Dose 25 MG; Start 04/08/17 at 21:00 Acetaminophen (Tylenol Tab) 650 mg Q4H PRN PO PAIN AND OR ELEVATED TEMP; Start 04/08/17 at 19:30 Morphine Sulfate (morphine) 2 mg Q4H PRN IV PAIN LEVEL 8-10 Last administered on 04/23/17 16:57; Admin Dose 2 MG; Start 04/08/17 at 19:30 Miscellaneous Information 1 ea NOTE XX ; Start 04/08/17 at 20:00 Glucose (Glutose) 15 gm Q15M PRN PO DECREASED GLUCOSE; Start 04/08/17 at 20:00 Glucose (Glutose) 22.5 gm Q15M PRN PO DECREASED GLUCOSE; Start 04/08/17 at 20: 00 Dextrose (D50w Syringe) 25 ml Q15M PRN IV DECREASED GLUCOSE Last administered on 04/23/17 00:46; Admin Dose 25 ML; Start 04/08/17 at 20:00 Dextrose (D50w Syringe) 50 ml Q15M PRN IV DECREASED GLUCOSE Last administered on 04/23/17 05:50; Admin Dose 50 ML; Start 04/08/17 at 20:00 Glucagon (Glucagen) 1 mg Q15M PRN IM DECREASED GLUCOSE; Start 04/08/17 at 20:00 Glucose (Glutose) 15 gm Q15M PRN BUCCAL DECREASED GLUCOSE; Start 04/08/17 at 20 :00 Collagenase (Santyl) 1 applic DAILY TOP Last administered on 04/24/17 09:33; Admin Dose 1 APPLIC; Start 04/09/17 at 14:00 Collagenase (Santyl) 1 applic DAILY PRN TOP WHEN SOILED; Start 04/09/17 at 13: 00 IV Flush (NS 10 ml) 10 ml PRN PRN IV FLUSH LINE; Start 04/10/17 at 16:30 Gentamicin Sulfate (Gentamicin Iv Per Pharmacy) GENTAMICIN PER PHARMACY NOTE XX ; Start 04/11/17 at 10:30 Metoclopramide HCl (Reglan Liq) 5 mg Q8 PO Last administered on 04/24/17 05:48 ; Admin Dose 5 MG; Start 04/12/17 at 08:30 Povidone Iodine (Povidone-Iodine) 1 applic DAILY TOP Last administered on 09:32; Admin Dose 1 APPLIC; Start 04/12/17 at 11:30 Insulin Aspart (Novolog Insulin Pen) NOVOLOG *MODERATE* ALGORI... Q4 SC Last administered on 04/24/17 00:36; Admin Dose 6 UNIT; Start 04/17/17 at 09:00 Acetaminophen (Tylenol Liquid) 650 mg Q6 PRN GTB PAIN AND OR ELEVATED TEMP Last administered on 04/22/17 00:39; Admin Dose 650 MG; Start 04/17/17 at 11:30 Lisinopril (Zestril) 2.5 mg DAILY GTB ; Start 04/23/17 at 09:00 Carvedilol (Coreg) 3.125 mg BID GTB ; Start 04/22/17 at 21:00 Insulin Detemir (Levemir) 4 unit BID SC Last administered on 04/24/17 09:28; Admin Dose 4 UNIT; Start 04/23/17 at 09:00 VIRGINIA RODARTE Apr 24, 2017 12:13
--- NOTE | 2017-04-24 16:10 | CONS ---
Date/Time of Note Date/Time of Note DATE: 04/24/17 TIME: 16:09 Consult Date/Type/Reason Admit Date/Time Apr 08, 2017 at 16:19 Initial Consult Date 04/09/17 Type of Consultation: Pulm Ordering Provider: IVAN MALLOY MD Subjective No events on [facility] vent. Objective Vital Signs Date Time Temp Pulse Resp B/P Pulse Ox O2 Delivery O2 Flow Rate FiO2 04/24/17 15:30 98.1 64 16 96/55 97 04/24/17 13:17 30 Intake and Output 04/23/17 04/23/17 04/24/17 15:00 23:00 07:00 Intake Total 690 ml 730 ml Output Total 50 ml 0 ml Balance 640 ml 730 ml Exam EENT: Pupils equal, round, and reactive to light. Tracheostomy site clean and intact. CARDIAC: S1, S2, 1/6 systolic ejection murmur CHEST: Diminished air entry bilaterally. ABDOMEN: Mildly distended. Bowel sounds present no guarding or rebound EXTREMITIES: No cyanosis, clubbing edema +1 Results/Medications Result Diagram: 04/23/17 0535 04/23/17 0535 Results 24 hrs Laboratory Tests Test 04/23/17 16:42 04/23/17 20:41 04/24/17 00:31 04/24/17 05:14 Bedside Glucose 225 H 247 H 224 H 117 Test 04/24/17 09:24 04/24/17 13:05 Bedside Glucose 125 237 H Medications Current Medications Atorvastatin Calcium (Lipitor) 20 mg QHS GTB Last administered on 04/23/17 21: 06; Admin Dose 20 MG; Start 04/08/17 at 21:00 Acetaminophen/ Hydrocodone Bitart ([place] (5/325)) 1 tab Q6H PRN GTB SEVERE PAIN LEVEL 7-10 Last administered on 04/24/17 04:33; Admin Dose 1 TAB; Start at 19:30 Albuterol/ Ipratropium (Duoneb) 3 ml Q2H PRN NEB SHORTNESS OF BREATH; Start at 19:30 Levothyroxine Sodium (Synthroid) 125 mcg DAILY@06 GTB Last administered on 05:48; Admin Dose 125 MCG; Start 04/09/17 at 06:00 Multivit/Ca Carb/ B Cmplx/FA/Prenat (Shayla-Anuradha) 1 tab DAILY GTB Last administered on 04/24/17 09:17; Admin Dose 1 TAB; Start 04/09/17 at 09:00 Quetiapine Fumarate (Seroquel) 25 mg BID GTB Last administered on 04/24/17 09: 19; Admin Dose 25 MG; Start 04/08/17 at 21:00 Trazodone HCl (Desyrel) 25 mg QHS PO Last administered on 04/23/17 21:06; Admin Dose 25 MG; Start 04/08/17 at 21:00 Acetaminophen (Tylenol Tab) 650 mg Q4H PRN PO PAIN AND OR ELEVATED TEMP; Start 04/08/17 at 19:30 Morphine Sulfate (morphine) 2 mg Q4H PRN IV PAIN LEVEL 8-10 Last administered on 04/23/17 16:57; Admin Dose 2 MG; Start 04/08/17 at 19:30 Miscellaneous Information 1 ea NOTE XX ; Start 04/08/17 at 20:00 Glucose (Glutose) 15 gm Q15M PRN PO DECREASED GLUCOSE; Start 04/08/17 at 20:00 Glucose (Glutose) 22.5 gm Q15M PRN PO DECREASED GLUCOSE; Start 04/08/17 at 20: 00 Dextrose (D50w Syringe) 25 ml Q15M PRN IV DECREASED GLUCOSE Last administered on 04/23/17 00:46; Admin Dose 25 ML; Start 04/08/17 at 20:00 Dextrose (D50w Syringe) 50 ml Q15M PRN IV DECREASED GLUCOSE Last administered on 04/23/17 05:50; Admin Dose 50 ML; Start 04/08/17 at 20:00 Glucagon (Glucagen) 1 mg Q15M PRN IM DECREASED GLUCOSE; Start 04/08/17 at 20:00 Glucose (Glutose) 15 gm Q15M PRN BUCCAL DECREASED GLUCOSE; Start 04/08/17 at 20 :00 Collagenase (Santyl) 1 applic DAILY TOP Last administered on 04/24/17 09:33; Admin Dose 1 APPLIC; Start 04/09/17 at 14:00 Collagenase (Santyl) 1 applic DAILY PRN TOP WHEN SOILED; Start 04/09/17 at 13: 00 IV Flush (NS 10 ml) 10 ml PRN PRN IV FLUSH LINE; Start 04/10/17 at 16:30 Metoclopramide HCl (Reglan Liq) 5 mg Q8 PO Last administered on 04/24/17 14:23 ; Admin Dose 5 MG; Start 04/12/17 at 08:30 Povidone Iodine (Povidone-Iodine) 1 applic DAILY TOP Last administered on 09:32; Admin Dose 1 APPLIC; Start 04/12/17 at 11:30 Insulin Aspart (Novolog Insulin Pen) NOVOLOG *MODERATE* ALGORI... Q4 SC Last administered on 04/24/17 13:10; Admin Dose 6 UNIT; Start 04/17/17 at 09:00 Acetaminophen (Tylenol Liquid) 650 mg Q6 PRN GTB PAIN AND OR ELEVATED TEMP Last administered on 04/22/17 00:39; Admin Dose 650 MG; Start 04/17/17 at 11:30 Lisinopril (Zestril) 2.5 mg DAILY GTB ; Start 04/23/17 at 09:00 Carvedilol (Coreg) 3.125 mg BID GTB ; Start 04/22/17 at 21:00 Insulin Detemir (Levemir) 4 unit BID SC Last administered on 04/24/17 09:28; Admin Dose 4 UNIT; Start 04/23/17 at 09:00 Assessment/Plan Additional Assessment/Plan IMP: 1. Status post septic shock with klebsiella bacteremia 2. VDRF 3. ESRD on HD 4. CHF 5. Encephalopathy RECS: 1. Follow glucose and electrolytes 2. Continue HD/UF 3. Abx per ID 4. Continue tube feeding 5. Am labs 6. Vent support. KELLY MALCOLM MD Apr 24, 2017 16:10
--- NOTE | 2017-04-24 17:18 | CONS ---
Date/Time of Note Date/Time of Note DATE: 04/24/17 TIME: 17:17 Assessment/Plan Assessment/Plan Chief Complaint/Hosp Course 66-year-old female with a history of end-stage renal disease on dialysis, status post trach on vent, status post PEG, admitted to the intensive care unit for sepsis. Patient also had a rectal bleeding. GI consult was called in for abdominal distention. Patient had both KUB and CAT scan done within the last few days CAT scan was negative for any acute pathology. Patient had some ascites and anasarca. KUB also was negative. Patient is on G-tube feeding at 10 cc/h. Her residual has been around 10 cc. No active bleeding has been noted by the staff in ICU. Problems: Additional Assessment/Plan 1. Sepsis. 2. Coronary artery disease with systolic heart failure. Continue hemodialysis to remove fluids. 3. Coronary artery disease, status post coronary artery bypass graft. 4. Dysphagia on tube feeds 5. Respiratory failure. Continue vent support. Will obtain a pulmonary consult from [facility]. 6. abdominal distension: CT unrevealing, minimal residual. 7. Anal cancer with recent rectal bleed. Status post radiation treatment. Her rectal bleeding is most probably from radiation proctitis 8. History of pulseless electrical activity with possible anoxic encephalopathy. Will continue to monitor. 9. History of GI bleed. 10. Dyslipidemia. 11. Anasarca, and ascites 12. Renal failure on dialysis 13. Encephalopathy, resolved patient is alert awake and oriented 14. Anemia multifactorial, stable now 15. Clogged G-tube Plan Continue present care G-tube is now declogged Flustered G-tube with warm water 20 cc 3 times daily to prevent the clogging of G-tube Consultation Date/Type/Reason Admit Date/Time Apr 08, 2017 at 16:19 Initial Consult Date 04/09/17 Type of Consultation: Pulm Referring Provider: IVAN MALLOY MD 24 HR Interval Summary Constitutional: improved, no complaints Exam/Review of Systems Vital Signs Vitals Vital Signs Date Time Temp Pulse Resp B/P Pulse Ox O2 Delivery O2 Flow Rate FiO2 04/24/17 16:31 84 04/24/17 15:30 98.1 16 96/55 97 04/24/17 13:17 30 Intake and Output 04/23/17 04/23/17 04/24/17 15:00 23:00 07:00 Intake Total 690 ml 730 ml Output Total 50 ml 0 ml Balance 640 ml 730 ml Exam Constitutional: alert, oriented, well developed Psych: nl mood/affect, no complaints Head: atraumatic, normocephalic Eyes: EOMI, PERRL, nl conjunctiva, nl lids, nl sclera ENMT: nl external ears & nose, nl lips & teeth, nl nasal mucosa & septum Neck: non-tender, supple Respiratory: clear to auscultation, normal air movement Cardiovascular: nl pulses, regular rate and rhythm Gastrointestinal: nl liver, spleen, non-tender, soft Musculoskeletal: nl extremities to inspection, nl gait and stance Extremities: normal pulses Neurological: [employer] II-XII intact, nl mental status, nl speech, nl strength Skin: nl turgor, No rash or lesions Lymph: nl lymph nodes Results Result Diagram: 04/23/17 0535 04/23/17 0535 Results 24 hrs Laboratory Tests Test 04/23/17 20:41 04/24/17 00:31 04/24/17 05:14 04/24/17 09:24 Bedside Glucose 247 H 224 H 117 125 Test 04/24/17 13:05 04/24/17 16:42 Bedside Glucose 237 H 188 Medications Medications Current Medications Atorvastatin Calcium (Lipitor) 20 mg QHS GTB Last administered on 04/23/17 21: 06; Admin Dose 20 MG; Start 04/08/17 at 21:00 Acetaminophen/ Hydrocodone Bitart ([place] (5/325)) 1 tab Q6H PRN GTB SEVERE PAIN LEVEL 7-10 Last administered on 04/24/17 04:33; Admin Dose 1 TAB; Start at 19:30 Albuterol/ Ipratropium (Duoneb) 3 ml Q2H PRN NEB SHORTNESS OF BREATH; Start at 19:30 Levothyroxine Sodium (Synthroid) 125 mcg DAILY@06 GTB Last administered on 05:48; Admin Dose 125 MCG; Start 04/09/17 at 06:00 Multivit/Ca Carb/ B Cmplx/FA/Prenat (Shayla-Anuradha) 1 tab DAILY GTB Last administered on 04/24/17 09:17; Admin Dose 1 TAB; Start 04/09/17 at 09:00 Quetiapine Fumarate (Seroquel) 25 mg BID GTB Last administered on 04/24/17 09: 19; Admin Dose 25 MG; Start 04/08/17 at 21:00 Trazodone HCl (Desyrel) 25 mg QHS PO Last administered on 04/23/17 21:06; Admin Dose 25 MG; Start 04/08/17 at 21:00 Acetaminophen (Tylenol Tab) 650 mg Q4H PRN PO PAIN AND OR ELEVATED TEMP; Start 04/08/17 at 19:30 Morphine Sulfate (morphine) 2 mg Q4H PRN IV PAIN LEVEL 8-10 Last administered on 04/23/17 16:57; Admin Dose 2 MG; Start 04/08/17 at 19:30 Miscellaneous Information 1 ea NOTE XX ; Start 04/08/17 at 20:00 Glucose (Glutose) 15 gm Q15M PRN PO DECREASED GLUCOSE; Start 04/08/17 at 20:00 Glucose (Glutose) 22.5 gm Q15M PRN PO DECREASED GLUCOSE; Start 04/08/17 at 20: 00 Dextrose (D50w Syringe) 25 ml Q15M PRN IV DECREASED GLUCOSE Last administered on 04/23/17 00:46; Admin Dose 25 ML; Start 04/08/17 at 20:00 Dextrose (D50w Syringe) 50 ml Q15M PRN IV DECREASED GLUCOSE Last administered on 04/23/17 05:50; Admin Dose 50 ML; Start 04/08/17 at 20:00 Glucagon (Glucagen) 1 mg Q15M PRN IM DECREASED GLUCOSE; Start 04/08/17 at 20:00 Glucose (Glutose) 15 gm Q15M PRN BUCCAL DECREASED GLUCOSE; Start 04/08/17 at 20 :00 Collagenase (Santyl) 1 applic DAILY TOP Last administered on 04/24/17 09:33; Admin Dose 1 APPLIC; Start 04/09/17 at 14:00 Collagenase (Santyl) 1 applic DAILY PRN TOP WHEN SOILED; Start 04/09/17 at 13: 00 IV Flush (NS 10 ml) 10 ml PRN PRN IV FLUSH LINE; Start 04/10/17 at 16:30 Metoclopramide HCl (Reglan Liq) 5 mg Q8 PO Last administered on 04/24/17 14:23 ; Admin Dose 5 MG; Start 04/12/17 at 08:30 Povidone Iodine (Povidone-Iodine) 1 applic DAILY TOP Last administered on 09:32; Admin Dose 1 APPLIC; Start 04/12/17 at 11:30 Insulin Aspart (Novolog Insulin Pen) NOVOLOG *MODERATE* ALGORI... Q4 SC Last administered on 04/24/17 16:45; Admin Dose 4 UNIT; Start 04/17/17 at 09:00 Acetaminophen (Tylenol Liquid) 650 mg Q6 PRN GTB PAIN AND OR ELEVATED TEMP Last administered on 04/22/17 00:39; Admin Dose 650 MG; Start 04/17/17 at 11:30 Lisinopril (Zestril) 2.5 mg DAILY GTB ; Start 04/23/17 at 09:00 Carvedilol (Coreg) 3.125 mg BID GTB ; Start 04/22/17 at 21:00 Insulin Detemir (Levemir) 4 unit BID SC Last administered on 04/24/17 09:28; Admin Dose 4 UNIT; Start 04/23/17 at 09:00 KAIN HOWELL MD Apr 24, 2017 17:18
[2017-04-24] MEDS: ATORVASTATIN 20 MG TAB GTB SCH (21:16)
[2017-04-24] MEDS: traZODone 50 MG TAB PO SCH (21:16)
[2017-04-24] MEDS: morphine 2 MG INJ IV PRN (21:17)
[2017-04-25] VITALS (32 sets, daily range): BP systolic 90–136; BP diastolic 51–62; PULSE 80–97; RESP 14–20
[2017-04-25] MEDS: INSULIN ASPART [NOVOLOG] 3 ML PEN SC SCH ×6 (00:39→20:31)
[2017-04-25] MEDS: morphine 2 MG INJ IV PRN ×2 (03:36→20:23)
[2017-04-25] MEDS: METOCLOPRAMIDE (1 MG/ML) 10 ML CUP PO SCH ×3 (05:39→22:54)
[2017-04-25] MEDS: LEVOTHYROXINE 125 MCG TAB GTB SCH (06:00)
[2017-04-25 07:03] LABS: ADD SCAN DIFF NO
[2017-04-25 07:08] LABS: ABNORMAL IP MESSAGE 1; HEMATOCRIT 29.4 % (37.0-47.0); HEMOGLOBIN 9.4 g/dl (12.0-16.0); LYMPHOCYTES # 0.7 10^3/ul (0.8-2.9); LYMPHOCYTES % 9.8 % (15.0-51.0); MEAN CORPUSCULAR HEMOGLOBIN 30.2 pg (29.0-33.0); MEAN CORPUSCULAR VOLUME 94.5 fl (82.0-101.0); MEAN PLATELET VOLUME 11.8 fl (7.4-10.4); MONOCYTE # 0.4 10^3/ul (0.3-0.9); MONOCYTES % 6.3 % (0.0-11.0); NEUTROPHIL # 5.7 10^3/ul (1.6-7.5); NEUTROPHILS % 82.6 % (39.0-77.0); PLATELET COUNT 95 10^3/UL (140-415); RED BLOOD COUNT 3.11 10^6/ul (4.20-5.40); RED CELL DISTRIBUTION WIDTH 18.4 % (11.5-14.5); WHITE BLOOD COUNT 6.9 10^3/ul (4.8-10.8)
[2017-04-25 07:37] LABS: CREATININE 2.97 mg/dl (0.44-1.00)
[2017-04-25] MEDS: LISINOPRIL 5 MG TAB GTB SCH (07:49)
[2017-04-25] MEDS: QUETIAPINE 25 MG TAB GTB SCH ×2 (08:24→20:24)
[2017-04-25] MEDS: LANSOPRAZOLE 30 MG CAP GTB SCH ×2 (08:24→18:35)
[2017-04-25] MEDS: MULTIVIT/CA CARB/B CMPLX/FA TAB GTB SCH (08:24)
[2017-04-25] MEDS: COLLAGENASE 30 GM TUBE TOP SCH (08:27)
[2017-04-25] MEDS: INSULIN DETEMIR [LEVEMIR] 3ML CART SC SCH ×2 (08:27→20:30)
[2017-04-25] MEDS: POVIDONE IODINE 10% 28.4 GM OINT TOP SCH (08:27)
[2017-04-25] MEDS: HYDROCODONE/APAP (5/325) TAB GTB PRN (08:36)
--- NOTE | 2017-04-25 10:36 | PN ---
Date/Time of Note Date/Time of Note DATE: 04/25/17 TIME: 10:35 Assessment/Plan Lines/Catheters IV [facility]from [facility]): permacath Urinary Cath still in place: Yes Assessment/Plan Chief Complaint/Hosp Course 1. End-stage renal disease. The patient is receiving daily dialysis for solute clearance and volume removal. - Plan for hemodialysis today for 3 hours 2. Anemia of chronic disease. With GI bleeding. continue to monitor hemoglobin and hematocrit levels. -We will transfuse to keep hemoglobin above 8 3. Mineral bone disorder. Monitor calcium phosphorus levels 4. Hyponatremia secondary to end-stage renal disease. Limit free water. HD 140 sodium bath 5. Hypokalemia, - replete with potassium chloride 6. Septic shock, etiology is multifactorial secondary to urinary tract infection and pneumonia. Continue current broad spectrum antibiotics, continue pressor support. 7. Ventilator dependent respiratory failure. Vent settings have been reviewed. ABG have been reviewed. Continue to monitor. 8. Dysphagia status post percutaneous endoscopic gastrostomy. Continue tube feeding. 9. History of coronary artery disease. 10. Diabetes. Continue Accu-Cheks and sliding scale. 11. Hypothyroidism. Continue Synthroid. 12. History of anal cancer. 13. Acute on chronic encephalopathy, etiology is toxic metabolic. Continue to monitor. 14. Volume overload secondary to congestive heart failure, end-stage renal disease. Continue ultrafiltration with dialysis. Problems: Subjective 24 Hr Interval Summary Free Text/Dictation Patient seen and examined no events overnight Exam/Review of Systems Vital Signs Vitals Vital Signs Date Time Temp Pulse Resp B/P Pulse Ox O2 Delivery O2 Flow Rate FiO2 04/25/17 09:10 88 19 98 30 04/25/17 07:39 98.1 108/52 Intake and Output 04/24/17 04/24/17 04/25/17 15:00 23:00 07:00 Intake Total 500 ml 730 ml Output Total 25 ml 0 ml Balance 475 ml 730 ml Exam Sleeping but arousable, no apparent distress Head: normocephalic Neck: other (Tracheostomy) Respiratory: other (Coarse breath sounds bilaterally, no wheezing) Cardiovascular: other (S1-S2 heard), regular rate and rhythm Gastrointestinal: bowel sounds, non-tender, soft Extremities: edema Results Result Diagram: 04/25/17 0635 04/25/17 0635 Results 24 hrs Laboratory Tests Test 04/24/17 13:05 04/24/17 16:42 04/24/17 21:03 04/25/17 00:33 Bedside Glucose 237 H 188 233 H 209 Test 04/25/17 05:38 04/25/17 06:35 04/25/17 08:15 Bedside Glucose 124 170 White Blood Count 6.9 # Red Blood Count 3.11 L Hemoglobin 9.4 L Hematocrit 29.4 L Mean Corpuscular Volume 94.5 Mean Corpuscular Hemoglobin 30.2 Mean Corpuscular Hemoglobin Concent 32.0 Red Cell Distribution Width 18.4 H Platelet Count 95 L Mean Platelet Volume 11.8 H Neutrophils % 82.6 H Lymphocytes % 9.8 L Monocytes % 6.3 Eosinophils % 0.0 Basophils % 0.0 Nucleated Red Blood Cells % 0.0 Neutrophils # 5.7 Lymphocytes # 0.7 L Monocytes # 0.4 Eosinophils # 0.0 Basophils # 0.0 Nucleated Red Blood Cells # 0.0 Sodium Level 139 Potassium Level 4.0 Chloride Level 96 L Carbon Dioxide Level 28 Anion Gap 19 H Blood Urea Nitrogen 85 H Creatinine 2.97 H Glucose Level 141 Calcium Level 8.0 L Medications Medications Current Medications Atorvastatin Calcium (Lipitor) 20 mg QHS GTB Last administered on 04/24/17 21: 16; Admin Dose 20 MG; Start 04/08/17 at 21:00 Acetaminophen/ Hydrocodone Bitart ([place] (5/325)) 1 tab Q6H PRN GTB SEVERE PAIN LEVEL 7-10 Last administered on 04/25/17 08:36; Admin Dose 1 TAB; Start at 19:30 Albuterol/ Ipratropium (Duoneb) 3 ml Q2H PRN NEB SHORTNESS OF BREATH; Start at 19:30 Levothyroxine Sodium (Synthroid) 125 mcg DAILY@06 GTB Last administered on 04/25 06:00; Admin Dose 125 MCG; Start 04/09/17 at 06:00 Multivit/Ca Carb/ B Cmplx/FA/Prenat (Shayla-Anuradha) 1 tab DAILY GTB Last administered on 04/25/17 08:24; Admin Dose 1 TAB; Start 04/09/17 at 09:00 Quetiapine Fumarate (Seroquel) 25 mg BID GTB Last administered on 04/25/17 08: 24; Admin Dose 25 MG; Start 04/08/17 at 21:00 Trazodone HCl (Desyrel) 25 mg QHS PO Last administered on 04/24/17 21:16; Admin Dose 25 MG; Start 04/08/17 at 21:00 Acetaminophen (Tylenol Tab) 650 mg Q4H PRN PO PAIN AND OR ELEVATED TEMP; Start 04/08/17 at 19:30 Morphine Sulfate (morphine) 2 mg Q4H PRN IV PAIN LEVEL 8-10 Last administered on 04/25/17 03:36; Admin Dose 2 MG; Start 04/08/17 at 19:30 Miscellaneous Information 1 ea NOTE XX ; Start 04/08/17 at 20:00 Glucose (Glutose) 15 gm Q15M PRN PO DECREASED GLUCOSE; Start 04/08/17 at 20:00 Glucose (Glutose) 22.5 gm Q15M PRN PO DECREASED GLUCOSE; Start 04/08/17 at 20: 00 Dextrose (D50w Syringe) 25 ml Q15M PRN IV DECREASED GLUCOSE Last administered on 04/23/17 00:46; Admin Dose 25 ML; Start 04/08/17 at 20:00 Dextrose (D50w Syringe) 50 ml Q15M PRN IV DECREASED GLUCOSE Last administered on 04/23/17 05:50; Admin Dose 50 ML; Start 04/08/17 at 20:00 Glucagon (Glucagen) 1 mg Q15M PRN IM DECREASED GLUCOSE; Start 04/08/17 at 20:00 Glucose (Glutose) 15 gm Q15M PRN BUCCAL DECREASED GLUCOSE; Start 04/08/17 at 20 :00 Collagenase (Santyl) 1 applic DAILY TOP Last administered on 04/25/17 08:27; Admin Dose 1 APPLIC; Start 04/09/17 at 14:00 Collagenase (Santyl) 1 applic DAILY PRN TOP WHEN SOILED; Start 04/09/17 at 13: 00 IV Flush (NS 10 ml) 10 ml PRN PRN IV FLUSH LINE; Start 04/10/17 at 16:30 Metoclopramide HCl (Reglan Liq) 5 mg Q8 PO Last administered on 04/25/17 05:39 ; Admin Dose 5 MG; Start 04/12/17 at 08:30 Povidone Iodine (Povidone-Iodine) 1 applic DAILY TOP Last administered on 08:27; Admin Dose 1 APPLIC; Start 04/12/17 at 11:30 Insulin Aspart (Novolog Insulin Pen) NOVOLOG *MODERATE* ALGORI... Q4 SC Last administered on 04/25/17 08:26; Admin Dose 2 UNIT; Start 04/17/17 at 09:00 Acetaminophen (Tylenol Liquid) 650 mg Q6 PRN GTB PAIN AND OR ELEVATED TEMP Last administered on 04/22/17 00:39; Admin Dose 650 MG; Start 04/17/17 at 11:30 Lisinopril (Zestril) 2.5 mg DAILY GTB ; Start 04/23/17 at 09:00 Carvedilol (Coreg) 3.125 mg BID GTB Last administered on 04/24/17 21:16; Admin Dose 3.125 MG; Start 04/22/17 at 21:00 Insulin Detemir (Levemir) 4 unit BID SC Last administered on 04/25/17 08:27; Admin Dose 4 UNIT; Start 04/23/17 at 09:00 ANJELICA SANCHEZ DO Apr 25, 2017 10:35
[2017-04-25] MEDS ORDERED: HEPARIN 1000 UNITS/ML 10 ML INJ CATHETER SCH (12:00)
--- NOTE | 2017-04-25 15:38 | CONS ---
Date/Time of Note Date/Time of Note DATE: 04/25/17 TIME: 15:22 Consult Date/Type/Reason Admit Date/Time Apr 08, 2017 at 16:19 Initial Consult Date 04/09/17 Type of Consultation: Pulm Ordering Provider: IVAN MALLOY MD Subjective comfortable Objective Vital Signs Date Time Temp Pulse Resp B/P Pulse Ox O2 Delivery O2 Flow Rate FiO2 04/25/17 13:55 84 16 04/25/17 13:15 100 30 04/25/17 07:39 98.1 108/52 Intake and Output 04/24/17 04/24/17 04/25/17 15:00 23:00 07:00 Intake Total 500 ml 730 ml Output Total 25 ml 0 ml Balance 475 ml 730 ml Exam PHYSICAL EXAMINATION GENERAL: Elderly lady comfortable at rest on mechanical ventilation VITAL SIGNS: see below. HEENT: Pupils equal, round, and reactive to light. Tracheostomy site clean and intact. CARDIAC: S1, S2, 1/6 systolic ejection murmur CHEST: Diminished air entry bilaterally. ABDOMEN: Mildly distended. Bowel sounds present no guarding or rebound EXTREMITIES: No cyanosis, clubbing edema +1 NEUROLOGIC: Generalized weakness Results/Medications Result Diagram: 04/25/17 0635 04/25/17 0635 Results 24 hrs Laboratory Tests Test 04/24/17 16:42 04/24/17 21:03 04/25/17 00:33 04/25/17 05:38 Bedside Glucose 188 233 H 209 124 Test 04/25/17 06:35 04/25/17 08:15 04/25/17 12:36 White Blood Count 6.9 # Red Blood Count 3.11 L Hemoglobin 9.4 L Hematocrit 29.4 L Mean Corpuscular Volume 94.5 Mean Corpuscular Hemoglobin 30.2 Mean Corpuscular Hemoglobin Concent 32.0 Red Cell Distribution Width 18.4 H Platelet Count 95 L Mean Platelet Volume 11.8 H Neutrophils % 82.6 H Lymphocytes % 9.8 L Monocytes % 6.3 Eosinophils % 0.0 Basophils % 0.0 Nucleated Red Blood Cells % 0.0 Neutrophils # 5.7 Lymphocytes # 0.7 L Monocytes # 0.4 Eosinophils # 0.0 Basophils # 0.0 Nucleated Red Blood Cells # 0.0 Sodium Level 139 Potassium Level 4.0 Chloride Level 96 L Carbon Dioxide Level 28 Anion Gap 19 H Blood Urea Nitrogen 85 H Creatinine 2.97 H Glucose Level 141 Calcium Level 8.0 L Bedside Glucose 170 174 Medications Current Medications Atorvastatin Calcium (Lipitor) 20 mg QHS GTB Last administered on 04/24/17 21: 16; Admin Dose 20 MG; Start 04/08/17 at 21:00 Acetaminophen/ Hydrocodone Bitart ([place] (5/325)) 1 tab Q6H PRN GTB SEVERE PAIN LEVEL 7-10 Last administered on 04/25/17 08:36; Admin Dose 1 TAB; Start at 19:30 Albuterol/ Ipratropium (Duoneb) 3 ml Q2H PRN NEB SHORTNESS OF BREATH; Start at 19:30 Levothyroxine Sodium (Synthroid) 125 mcg DAILY@06 GTB Last administered on 04/25 06:00; Admin Dose 125 MCG; Start 04/09/17 at 06:00 Multivit/Ca Carb/ B Cmplx/FA/Prenat (Shayla-Anuradha) 1 tab DAILY GTB Last administered on 04/25/17 08:24; Admin Dose 1 TAB; Start 04/09/17 at 09:00 Quetiapine Fumarate (Seroquel) 25 mg BID GTB Last administered on 04/25/17 08: 24; Admin Dose 25 MG; Start 04/08/17 at 21:00 Trazodone HCl (Desyrel) 25 mg QHS PO Last administered on 04/24/17 21:16; Admin Dose 25 MG; Start 04/08/17 at 21:00 Acetaminophen (Tylenol Tab) 650 mg Q4H PRN PO PAIN AND OR ELEVATED TEMP; Start 04/08/17 at 19:30 Morphine Sulfate (morphine) 2 mg Q4H PRN IV PAIN LEVEL 8-10 Last administered on 04/25/17 03:36; Admin Dose 2 MG; Start 04/08/17 at 19:30 Miscellaneous Information 1 ea NOTE XX ; Start 04/08/17 at 20:00 Glucose (Glutose) 15 gm Q15M PRN PO DECREASED GLUCOSE; Start 04/08/17 at 20:00 Glucose (Glutose) 22.5 gm Q15M PRN PO DECREASED GLUCOSE; Start 04/08/17 at 20: 00 Dextrose (D50w Syringe) 25 ml Q15M PRN IV DECREASED GLUCOSE Last administered on 04/23/17 00:46; Admin Dose 25 ML; Start 04/08/17 at 20:00 Dextrose (D50w Syringe) 50 ml Q15M PRN IV DECREASED GLUCOSE Last administered on 04/23/17 05:50; Admin Dose 50 ML; Start 04/08/17 at 20:00 Glucagon (Glucagen) 1 mg Q15M PRN IM DECREASED GLUCOSE; Start 04/08/17 at 20:00 Glucose (Glutose) 15 gm Q15M PRN BUCCAL DECREASED GLUCOSE; Start 04/08/17 at 20 :00 Collagenase (Santyl) 1 applic DAILY TOP Last administered on 04/25/17 08:27; Admin Dose 1 APPLIC; Start 04/09/17 at 14:00 Collagenase (Santyl) 1 applic DAILY PRN TOP WHEN SOILED; Start 04/09/17 at 13: 00 IV Flush (NS 10 ml) 10 ml PRN PRN IV FLUSH LINE; Start 04/10/17 at 16:30 Metoclopramide HCl (Reglan Liq) 5 mg Q8 PO Last administered on 04/25/17 05:39 ; Admin Dose 5 MG; Start 04/12/17 at 08:30 Povidone Iodine (Povidone-Iodine) 1 applic DAILY TOP Last administered on 08:27; Admin Dose 1 APPLIC; Start 04/12/17 at 11:30 Insulin Aspart (Novolog Insulin Pen) NOVOLOG *MODERATE* ALGORI... Q4 SC Last administered on 04/25/17 12:41; Admin Dose 2 UNIT; Start 04/17/17 at 09:00 Acetaminophen (Tylenol Liquid) 650 mg Q6 PRN GTB PAIN AND OR ELEVATED TEMP Last administered on 04/22/17 00:39; Admin Dose 650 MG; Start 04/17/17 at 11:30 Lisinopril (Zestril) 2.5 mg DAILY GTB ; Start 04/23/17 at 09:00 Carvedilol (Coreg) 3.125 mg BID GTB Last administered on 04/24/17 21:16; Admin Dose 3.125 MG; Start 04/22/17 at 21:00 Insulin Detemir (Levemir) 4 unit BID SC Last administered on 04/25/17t 08:27; Admin Dose 4 UNIT; Start 04/23/17 at 09:00 Assessment/Plan Chief Complaint/Hosp Course IMP: 1. Status post septic shock with klebsiella bacteremia 2. VDRF 3. ESRD on HD 4. CHF with tachycardia 5. Encephalopathy resolving RECS: 1. monitor off vasopressors 2. Continue HD/UF 3. Abx per ID 4. Continue tube feeding as tolerated Consider transfer back to [facility] facility. Problems: STEPHANIE BAIRES MD, [facility] Apr 25, 2017 15:37
--- NOTE | 2017-04-25 16:31 | CONS ---
Date/Time of Note Date/Time of Note DATE: 04/25/17 TIME: 16:28 Assessment/Plan Assessment/Plan Additional Assessment/Plan Nonsustained ventricular tachycardia Cardiomyopathy with ejection fraction 40% CAD with history of CABG Sepsis Kidney disease on hemodialysis -Telemetry reviewed with no episodes of ventricular tachycardia seen. Maintain potassium above 4.0 and magnesium above 2.0. Continue holding parameters on antihypertensives. Consultation Date/Type/Reason Admit Date/Time Apr 08, 2017 at 16:19 Initial Consult Date 04/09/17 Type of Consultation: cv Referring Provider: VIAN MALLOY MD 24 HR Interval Summary Free Text/Dictation Patient denies shortness of breath, palpitations Exam/Review of Systems Vital Signs Vitals Vital Signs Date Time Temp Pulse Resp B/P Pulse Ox O2 Delivery O2 Flow Rate FiO2 04/25/17 15:49 97.9 88 20 112/58 97 04/25/17 13:15 30 Intake and Output 04/24/17 04/24/17 04/25/17 15:00 23:00 07:00 Intake Total 500 ml 730 ml Output Total 25 ml 0 ml Balance 475 ml 730 ml Exam No apparent distress Constitutional: alert, frail, oriented Head: normocephalic Neck: other (Tracheostomy) Respiratory: other (Coarse breath sounds bilaterally, no wheezing) Cardiovascular: other (S1-S2 heard), regular rate and rhythm Gastrointestinal: bowel sounds, non-tender, soft Extremities: edema Results Result Diagram: 04/25/17 0635 04/25/17 0635 Results 24 hrs Laboratory Tests Test 04/24/17 16:42 04/24/17 21:03 04/25/17 00:33 04/25/17 05:38 Bedside Glucose 188 233 H 209 124 Test 04/25/17 06:35 04/25/17 08:15 04/25/17 12:36 White Blood Count 6.9 # Red Blood Count 3.11 L Hemoglobin 9.4 L Hematocrit 29.4 L Mean Corpuscular Volume 94.5 Mean Corpuscular Hemoglobin 30.2 Mean Corpuscular Hemoglobin Concent 32.0 Red Cell Distribution Width 18.4 H Platelet Count 95 L Mean Platelet Volume 11.8 H Neutrophils % 82.6 H Lymphocytes % 9.8 L Monocytes % 6.3 Eosinophils % 0.0 Basophils % 0.0 Nucleated Red Blood Cells % 0.0 Neutrophils # 5.7 Lymphocytes # 0.7 L Monocytes # 0.4 Eosinophils # 0.0 Basophils # 0.0 Nucleated Red Blood Cells # 0.0 Sodium Level 139 Potassium Level 4.0 Chloride Level 96 L Carbon Dioxide Level 28 Anion Gap 19 H Blood Urea Nitrogen 85 H Creatinine 2.97 H Glucose Level 141 Calcium Level 8.0 L Bedside Glucose 170 174 Medications Medications Current Medications Atorvastatin Calcium (Lipitor) 20 mg QHS GTB Last administered on 04/24/17 21: 16; Admin Dose 20 MG; Start 04/08/17 at 21:00 Acetaminophen/ Hydrocodone Bitart ([place] (5/325)) 1 tab Q6H PRN GTB SEVERE PAIN LEVEL 7-10 Last administered on 04/25/17 08:36; Admin Dose 1 TAB; Start at 19:30 Albuterol/ Ipratropium (Duoneb) 3 ml Q2H PRN NEB SHORTNESS OF BREATH; Start at 19:30 Levothyroxine Sodium (Synthroid) 125 mcg DAILY@06 GTB Last administered on 04/25 06:00; Admin Dose 125 MCG; Start 04/09/17 at 06:00 Multivit/Ca Carb/ B Cmplx/FA/Prenat (Shayla-Anuradha) 1 tab DAILY GTB Last administered on 04/25/17 08:24; Admin Dose 1 TAB; Start 04/09/17 at 09:00 Quetiapine Fumarate (Seroquel) 25 mg BID GTB Last administered on 04/25/17 08: 24; Admin Dose 25 MG; Start 04/08/17 at 21:00 Trazodone HCl (Desyrel) 25 mg QHS PO Last administered on 04/24/17 21:16; Admin Dose 25 MG; Start 04/08/17 at 21:00 Acetaminophen (Tylenol Tab) 650 mg Q4H PRN PO PAIN AND OR ELEVATED TEMP; Start 04/08/17 at 19:30 Morphine Sulfate (morphine) 2 mg Q4H PRN IV PAIN LEVEL 8-10 Last administered on 04/25/17 03:36; Admin Dose 2 MG; Start 04/08/17 at 19:30 Miscellaneous Information 1 ea NOTE XX ; Start 04/08/17 at 20:00 Glucose (Glutose) 15 gm Q15M PRN PO DECREASED GLUCOSE; Start 04/08/17 at 20:00 Glucose (Glutose) 22.5 gm Q15M PRN PO DECREASED GLUCOSE; Start 04/08/17 at 20: 00 Dextrose (D50w Syringe) 25 ml Q15M PRN IV DECREASED GLUCOSE Last administered on 04/23/17 00:46; Admin Dose 25 ML; Start 04/08/17 at 20:00 Dextrose (D50w Syringe) 50 ml Q15M PRN IV DECREASED GLUCOSE Last administered on 04/23/17 05:50; Admin Dose 50 ML; Start 04/08/17 at 20:00 Glucagon (Glucagen) 1 mg Q15M PRN IM DECREASED GLUCOSE; Start 04/08/17 at 20:00 Glucose (Glutose) 15 gm Q15M PRN BUCCAL DECREASED GLUCOSE; Start 04/08/17 at 20 :00 Collagenase (Santyl) 1 applic DAILY TOP Last administered on 04/25/17 08:27; Admin Dose 1 APPLIC; Start 04/09/17 at 14:00 Collagenase (Santyl) 1 applic DAILY PRN TOP WHEN SOILED; Start 04/09/17 at 13: 00 IV Flush (NS 10 ml) 10 ml PRN PRN IV FLUSH LINE; Start 04/10/17 at 16:30 Metoclopramide HCl (Reglan Liq) 5 mg Q8 PO Last administered on 04/25/17 16:16 ; Admin Dose 5 MG; Start 04/12/17 at 08:30 Povidone Iodine (Povidone-Iodine) 1 applic DAILY TOP Last administered on 08:27; Admin Dose 1 APPLIC; Start 04/12/17 at 11:30 Insulin Aspart (Novolog Insulin Pen) NOVOLOG *MODERATE* ALGORI... Q4 SC Last administered on 04/25/17 12:41; Admin Dose 2 UNIT; Start 04/17/17 at 09:00 Acetaminophen (Tylenol Liquid) 650 mg Q6 PRN GTB PAIN AND OR ELEVATED TEMP Last administered on 04/22/17 00:39; Admin Dose 650 MG; Start 04/17/17 at 11:30 Lisinopril (Zestril) 2.5 mg DAILY GTB ; Start 04/23/17 at 09:00 Carvedilol (Coreg) 3.125 mg BID GTB Last administered on 04/24/17 21:16; Admin Dose 3.125 MG; Start 04/22/17 at 21:00 Insulin Detemir (Levemir) 4 unit BID SC Last administered on 04/25/17 08:27; Admin Dose 4 UNIT; Start 04/23/17 at 09:00 Biju Mcdaniels DO Apr 25, 2017 16:30
--- NOTE | 2017-04-25 18:00 | PN ---
Date/Time of Note Date/Time of Note DATE: 04/25/17 TIME: 17:57 Assessment/Plan VTE Prophylaxis VTE Prophylaxis Intervention: SCD's Lines/Catheters [facility] Urinary Cath still in place: Yes Reason Cath still needed: urinary retention Assessment/Plan Chief Complaint/Hosp Course Patient status post hemodialysis today, comfortable on ventilator, no acute events per RN. Pending Quinn evaluation. Assessment/Plan - Septic shock with Klebsiella bacteremia, resolved. completed a course of antibiotics. Dr. Thurston group is following in infection disease consultation. - Acute respiratory failure. Continue ventilatory support. - Diabetes mellitus. Continue Levemir and NovoLog. - Systolic heart failure. Continue hemodialysis for fluid removal. - End-stage renal disease. Continue hemodialysis. - Anoxic encephalopathy. No acute issues. - Anemia of chronic disease. Continue Epogen. - Hypothyroidism. Continue Synthroid. - Dyslipidemia. Continue Lipitor. - Possible history of psychosis. Continue Seroquel and trazodone. Further recommendations based on clinical course. Plan of care discussed with Dr. Guerrero. Problems: Exam/Review of Systems Vital Signs Vitals Vital Signs Date Time Temp Pulse Resp B/P Pulse Ox O2 Delivery O2 Flow Rate FiO2 04/25/17 16:16 84 04/25/17 15:49 97.9 20 112/58 97 04/25/17 13:20 30 Intake and Output 04/24/17 04/24/17 04/25/17 15:00 23:00 07:00 Intake Total 500 ml 730 ml Output Total 25 ml 0 ml Balance 475 ml 730 ml Exam Constitutional: alert Head: normocephalic Neck: other (Tracheostomy), supple Respiratory: diminished breath sounds Cardiovascular: nl pulses Gastrointestinal: non-tender, other (GT), soft Extremities: normal pulses Neurological: nl mental status Results Result Diagram: 04/25/17 0635 04/25/17 0635 Results 24 hrs Laboratory Tests Test 04/24/17 21:03 04/25/17 00:33 04/25/17 05:38 04/25/17 06:35 Bedside Glucose 233 H 209 124 White Blood Count 6.9 # Red Blood Count 3.11 L Hemoglobin 9.4 L Hematocrit 29.4 L Mean Corpuscular Volume 94.5 Mean Corpuscular Hemoglobin 30.2 Mean Corpuscular Hemoglobin Concent 32.0 Red Cell Distribution Width 18.4 H Platelet Count 95 L Mean Platelet Volume 11.8 H Neutrophils % 82.6 H Lymphocytes % 9.8 L Monocytes % 6.3 Eosinophils % 0.0 Basophils % 0.0 Nucleated Red Blood Cells % 0.0 Neutrophils # 5.7 Lymphocytes # 0.7 L Monocytes # 0.4 Eosinophils # 0.0 Basophils # 0.0 Nucleated Red Blood Cells # 0.0 Sodium Level 139 Potassium Level 4.0 Chloride Level 96 L Carbon Dioxide Level 28 Anion Gap 19 H Blood Urea Nitrogen 85 H Creatinine 2.97 H Glucose Level 141 Calcium Level 8.0 L Test 04/25/17 08:15 04/25/17 12:36 04/25/17 16:45 Bedside Glucose 170 174 118 Medications Medications Current Medications Atorvastatin Calcium (Lipitor) 20 mg QHS GTB Last administered on 04/24/17 21: 16; Admin Dose 20 MG; Start 04/08/17 at 21:00 Acetaminophen/ Hydrocodone Bitart ([place] (5/325)) 1 tab Q6H PRN GTB SEVERE PAIN LEVEL 7-10 Last administered on 04/25/17 08:36; Admin Dose 1 TAB; Start at 19:30 Albuterol/ Ipratropium (Duoneb) 3 ml Q2H PRN NEB SHORTNESS OF BREATH; Start at 19:30 Levothyroxine Sodium (Synthroid) 125 mcg DAILY@06 GTB Last administered on 04/25 06:00; Admin Dose 125 MCG; Start 04/09/17 at 06:00 Multivit/Ca Carb/ B Cmplx/FA/Prenat (Shayla-Anuradha) 1 tab DAILY GTB Last administered on 04/25/17 08:24; Admin Dose 1 TAB; Start 04/09/17 at 09:00 Quetiapine Fumarate (Seroquel) 25 mg BID GTB Last administered on 04/25/17 08: 24; Admin Dose 25 MG; Start 04/08/17 at 21:00 Trazodone HCl (Desyrel) 25 mg QHS PO Last administered on 04/24/17 21:16; Admin Dose 25 MG; Start 04/08/17 at 21:00 Acetaminophen (Tylenol Tab) 650 mg Q4H PRN PO PAIN AND OR ELEVATED TEMP; Start 04/08/17 at 19:30 Morphine Sulfate (morphine) 2 mg Q4H PRN IV PAIN LEVEL 8-10 Last administered on 04/25/17 03:36; Admin Dose 2 MG; Start 04/08/17 at 19:30 Miscellaneous Information 1 ea NOTE XX ; Start 04/08/17 at 20:00 Glucose (Glutose) 15 gm Q15M PRN PO DECREASED GLUCOSE; Start 04/08/17 at 20:00 Glucose (Glutose) 22.5 gm Q15M PRN PO DECREASED GLUCOSE; Start 04/08/17 at 20: 00 Dextrose (D50w Syringe) 25 ml Q15M PRN IV DECREASED GLUCOSE Last administered on 04/23/17 00:46; Admin Dose 25 ML; Start 04/08/17 at 20:00 Dextrose (D50w Syringe) 50 ml Q15M PRN IV DECREASED GLUCOSE Last administered on 04/23/17 05:50; Admin Dose 50 ML; Start 04/08/17 at 20:00 Glucagon (Glucagen) 1 mg Q15M PRN IM DECREASED GLUCOSE; Start 04/08/17 at 20:00 Glucose (Glutose) 15 gm Q15M PRN BUCCAL DECREASED GLUCOSE; Start 04/08/17 at 20 :00 Collagenase (Santyl) 1 applic DAILY TOP Last administered on 04/25/17 08:27; Admin Dose 1 APPLIC; Start 04/09/17 at 14:00 Collagenase (Santyl) 1 applic DAILY PRN TOP WHEN SOILED; Start 04/09/17 at 13: 00 IV Flush (NS 10 ml) 10 ml PRN PRN IV FLUSH LINE; Start 04/10/17 at 16:30 Metoclopramide HCl (Reglan Liq) 5 mg Q8 PO Last administered on 04/25/17 16:16 ; Admin Dose 5 MG; Start 04/12/17 at 08:30 Povidone Iodine (Povidone-Iodine) 1 applic DAILY TOP Last administered on 08:27; Admin Dose 1 APPLIC; Start 04/12/17 at 11:30 Insulin Aspart (Novolog Insulin Pen) NOVOLOG *MODERATE* ALGORI... Q4 SC Last administered on 04/25/17 12:41; Admin Dose 2 UNIT; Start 04/17/17 at 09:00 Acetaminophen (Tylenol Liquid) 650 mg Q6 PRN GTB PAIN AND OR ELEVATED TEMP Last administered on 04/22/17 00:39; Admin Dose 650 MG; Start 04/17/17 at 11:30 Lisinopril (Zestril) 2.5 mg DAILY GTB ; Start 04/23/17 at 09:00 Carvedilol (Coreg) 3.125 mg BID GTB Last administered on 04/24/17 21:16; Admin Dose 3.125 MG; Start 04/22/17 at 21:00 Insulin Detemir (Levemir) 4 unit BID SC Last administered on 04/25/17 08:27; Admin Dose 4 UNIT; Start 04/23/17 at 09:00 HIEU DALY Apr 25, 2017 18:00
[2017-04-25] MEDS: ATORVASTATIN 20 MG TAB GTB SCH (20:23)
[2017-04-25] MEDS: traZODone 50 MG TAB PO SCH (20:23)
[2017-04-26] VITALS (24 sets, daily range): BP systolic 97–119; BP diastolic 50–58; PULSE 84–90; RESP 14–20
[2017-04-26] MEDS: INSULIN ASPART [NOVOLOG] 3 ML PEN SC SCH ×6 (01:00→20:54)
[2017-04-26] MEDS: LEVOTHYROXINE 125 MCG TAB GTB SCH (05:20)
[2017-04-26] MEDS: METOCLOPRAMIDE (1 MG/ML) 10 ML CUP PO SCH ×3 (05:20→22:05)
[2017-04-26 07:08] LABS: ABNORMAL IP MESSAGE 1; ADD SCAN DIFF NO; BASOPHILS % 0.2 % (0.0-2.0); HEMATOCRIT 28.9 % (37.0-47.0); HEMOGLOBIN 9.2 g/dl (12.0-16.0); LYMPHOCYTES # 0.7 10^3/ul (0.8-2.9); LYMPHOCYTES % 11.5 % (15.0-51.0); MEAN CORPUSCULAR HEMOGLOBIN 30.1 pg (29.0-33.0); MEAN CORPUSCULAR HGB CONC 31.8 g/dl (32.0-37.0); MEAN CORPUSCULAR VOLUME 94.4 fl (82.0-101.0); MEAN PLATELET VOLUME 11.4 fl (7.4-10.4); MONOCYTE # 0.4 10^3/ul (0.3-0.9); MONOCYTES % 7.1 % (0.0-11.0); NEUTROPHIL # 4.9 10^3/ul (1.6-7.5); NEUTROPHILS % 79.9 % (39.0-77.0); RED BLOOD COUNT 3.06 10^6/ul (4.20-5.40); RED CELL DISTRIBUTION WIDTH 18.3 % (11.5-14.5); WHITE BLOOD COUNT 6.1 10^3/ul (4.8-10.8)
[2017-04-26 07:21] LABS: PLATELET COUNT 91 10^3/UL (140-415)
[2017-04-26 07:43] LABS: CREATININE 2.35 mg/dl (0.44-1.00); MAGNESIUM 2.2 mg/dl (1.7-2.5); PHOSPHORUS 3.4 mg/dl (2.5-4.9); POTASSIUM 3.9 mmol/L (3.5-5.1)
[2017-04-26] MEDS: LANSOPRAZOLE 30 MG CAP GTB SCH ×2 (08:42→17:29)
[2017-04-26] MEDS: MULTIVIT/CA CARB/B CMPLX/FA TAB GTB SCH (08:42)
[2017-04-26] MEDS: QUETIAPINE 25 MG TAB GTB SCH ×2 (08:43→20:50)
[2017-04-26] MEDS: LISINOPRIL 5 MG TAB GTB SCH (08:43)
[2017-04-26] MEDS: COLLAGENASE 30 GM TUBE TOP SCH (08:44)
[2017-04-26] MEDS: POVIDONE IODINE 10% 28.4 GM OINT TOP SCH (08:44)
[2017-04-26] MEDS: INSULIN DETEMIR [LEVEMIR] 3ML CART SC SCH ×2 (08:50→20:55)
--- NOTE | 2017-04-26 10:28 | PN ---
Date/Time of Note Date/Time of Note DATE: 04/26/17 TIME: 10:26 Assessment/Plan Lines/Catheters IV C[facility]ter Type (from [facility]): PERMACATH Urinary Cath still in place: Yes Assessment/Plan Chief Complaint/Hosp Course 1. End-stage renal disease. - Plan for hemodialysis tomorrow for 3 hours 2. Anemia of chronic disease. With GI bleeding. continue to monitor hemoglobin and hematocrit levels. -We will transfuse to keep hemoglobin above 8 3. Mineral bone disorder. Monitor calcium phosphorus levels 4. Hyponatremia secondary to end-stage renal disease. Limit free water. HD 140 sodium bath 5. Hypokalemia, - replete with potassium chloride 6. Septic shock, etiology is multifactorial secondary to urinary tract infection and pneumonia. Continue current broad spectrum antibiotics, continue pressor support. 7. Ventilator dependent respiratory failure. Vent settings have been reviewed. ABG have been reviewed. Continue to monitor. 8. Dysphagia status post percutaneous endoscopic gastrostomy. Continue tube feeding. 9. History of coronary artery disease. 10. Diabetes. Continue Accu-Cheks and sliding scale. 11. Hypothyroidism. Continue Synthroid. 12. History of anal cancer. 13. Acute on chronic encephalopathy, etiology is toxic metabolic. Continue to monitor. 14. Volume overload secondary to congestive heart failure, end-stage renal disease. Continue ultrafiltration with dialysis. Problems: Subjective 24 Hr Interval Summary Free Text/Dictation Patient seen and examined had hemodialysis yesterday No other events noted Exam/Review of Systems Vital Signs Vitals Vital Signs Date Time Temp Pulse Resp B/P Pulse Ox O2 Delivery O2 Flow Rate FiO2 04/26/17 09:15 82 14 100 30 04/26/17 07:58 99.1 97/56 Intake and Output 04/25/17 04/25/17 04/26/17 15:00 23:00 07:00 Intake Total 400 ml Output Total 2400 ml Balance -2000 ml Exam HEENT head is normocephalic able to react Neck is supple positive straight Cardiovascular regular rate no gallops Lungs show diminished breath sounds at the base Abdomen soft nontender palpation positive Extremity nephrocalcinosis positive Dermatologically no rash Muscle skeletal no joint Neurologically no change in exam Results Result Diagram: 04/26/17 0650 04/26/17 0650 Results 24 hrs Laboratory Tests Test 04/25/17 12:36 04/25/17 16:45 04/25/17 20:28 04/26/17 01:36 Bedside Glucose 174 118 196 114 Test 04/26/17 05:24 04/26/17 06:50 04/26/17 08:50 Bedside Glucose 139 168 White Blood Count 6.1 Red Blood Count 3.06 L Hemoglobin 9.2 L Hematocrit 28.9 L Mean Corpuscular Volume 94.4 Mean Corpuscular Hemoglobin 30.1 Mean Corpuscular Hemoglobin Concent 31.8 L Red Cell Distribution Width 18.3 H Platelet Count 91 L Mean Platelet Volume 11.4 H Neutrophils % 79.9 H Lymphocytes % 11.5 L Monocytes % 7.1 Eosinophils % 0.0 Basophils % 0.2 Nucleated Red Blood Cells % 0.0 Neutrophils # 4.9 Lymphocytes # 0.7 L Monocytes # 0.4 Eosinophils # 0.0 Basophils # 0.0 Nucleated Red Blood Cells # 0.0 Sodium Level 129 L Potassium Level 3.9 Chloride Level 97 Carbon Dioxide Level 28 Anion Gap 8 # Blood Urea Nitrogen 64 H Creatinine 2.35 H Glucose Level 149 Calcium Level 8.0 L Phosphorus Level 3.4 Magnesium Level 2.2 Medications Medications Current Medications Atorvastatin Calcium (Lipitor) 20 mg QHS GTB Last administered on 04/25/17 20: 23; Admin Dose 20 MG; Start 04/08/17 at 21:00 Acetaminophen/ Hydrocodone Bitart ([place] (5/325)) 1 tab Q6H PRN GTB SEVERE PAIN LEVEL 7-10 Last administered on 04/25/17 08:36; Admin Dose 1 TAB; Start at 19:30 Albuterol/ Ipratropium (Duoneb) 3 ml Q2H PRN NEB SHORTNESS OF BREATH; Start at 19:30 Levothyroxine Sodium (Synthroid) 125 mcg DAILY@06 GTB Last administered on 04/26 05:20; Admin Dose 125 MCG; Start 04/09/17 at 06:00 Multivit/Ca Carb/ B Cmplx/FA/Prenat (Shayla-Anuradha) 1 tab DAILY GTB Last administered on 04/26/17 08:42; Admin Dose 1 TAB; Start 04/09/17 at 09:00 Quetiapine Fumarate (Seroquel) 25 mg BID GTB Last administered on 04/26/17 08: 43; Admin Dose 25 MG; Start 04/08/17 at 21:00 Trazodone HCl (Desyrel) 25 mg QHS PO Last administered on 04/25/17 20:23; Admin Dose 25 MG; Start 04/08/17 at 21:00 Acetaminophen (Tylenol Tab) 650 mg Q4H PRN PO PAIN AND OR ELEVATED TEMP; Start 04/08/17 at 19:30 Morphine Sulfate (morphine) 2 mg Q4H PRN IV PAIN LEVEL 8-10 Last administered on 04/25/17 20:23; Admin Dose 2 MG; Start 04/08/17 at 19:30 Miscellaneous Information 1 ea NOTE XX ; Start 04/08/17 at 20:00 Glucose (Glutose) 15 gm Q15M PRN PO DECREASED GLUCOSE; Start 04/08/17 at 20:00 Glucose (Glutose) 22.5 gm Q15M PRN PO DECREASED GLUCOSE; Start 04/08/17 at 20: 00 Dextrose (D50w Syringe) 25 ml Q15M PRN IV DECREASED GLUCOSE Last administered on 04/23/17 00:46; Admin Dose 25 ML; Start 04/08/17 at 20:00 Dextrose (D50w Syringe) 50 ml Q15M PRN IV DECREASED GLUCOSE Last administered on 04/23/17 05:50; Admin Dose 50 ML; Start 04/08/17 at 20:00 Glucagon (Glucagen) 1 mg Q15M PRN IM DECREASED GLUCOSE; Start 04/08/17 at 20:00 Glucose (Glutose) 15 gm Q15M PRN BUCCAL DECREASED GLUCOSE; Start 04/08/17 at 20 :00 Collagenase (Santyl) 1 applic DAILY TOP Last administered on 04/26/17 08:44; Admin Dose 1 APPLIC; Start 04/09/17 at 14:00 Collagenase (Santyl) 1 applic DAILY PRN TOP WHEN SOILED; Start 04/09/17 at 13: 00 IV Flush (NS 10 ml) 10 ml PRN PRN IV FLUSH LINE; Start 04/10/17 at 16:30 Metoclopramide HCl (Reglan Liq) 5 mg Q8 PO Last administered on 04/26/17 05:20 ; Admin Dose 5 MG; Start 04/12/17 at 08:30 Povidone Iodine (Povidone-Iodine) 1 applic DAILY TOP Last administered on 08:44; Admin Dose 1 APPLIC; Start 04/12/17 at 11:30 Insulin Aspart (Novolog Insulin Pen) NOVOLOG *MODERATE* ALGORI... Q4 SC Last administered on 04/26/17 08:51; Admin Dose 2 UNIT; Start 04/17/17 at 09:00 Acetaminophen (Tylenol Liquid) 650 mg Q6 PRN GTB PAIN AND OR ELEVATED TEMP Last administered on 04/22/17 00:39; Admin Dose 650 MG; Start 04/17/17 at 11:30 Lisinopril (Zestril) 2.5 mg DAILY GTB ; Start 04/23/17 at 09:00 Carvedilol (Coreg) 3.125 mg BID GTB Last administered on 04/25/17 20:35; Admin Dose 3.125 MG; Start 04/22/17 at 21:00 Insulin Detemir (Levemir) 4 unit BID SC Last administered on 04/26/17 08:50; Admin Dose 4 UNIT; Start 04/23/17 at 09:00 ANJELICA SANCHEZ DO Apr 26, 2017 10:27
--- NOTE | 2017-04-26 12:20 | CONS ---
Date/Time of Note Date/Time of Note DATE: 04/26/17 TIME: 12:20 Assessment/Plan Assessment/Plan Chief Complaint/Hosp Course 66-year-old female with a history of end-stage renal disease on dialysis, status post trach on vent, status post PEG, admitted to the intensive care unit for sepsis. Patient also had a rectal bleeding. GI consult was called in for abdominal distention. Patient had both KUB and CAT scan done within the last few days CAT scan was negative for any acute pathology. Patient had some ascites and anasarca. KUB also was negative. Patient is on G-tube feeding at 10 cc/h. Her residual has been around 10 cc. No active bleeding has been noted by the staff in ICU. Problems: Additional Assessment/Plan Additional Assessment/Plan 1. Sepsis. 2. Coronary artery disease with systolic heart failure. Continue hemodialysis to remove fluids. 3. Coronary artery disease, status post coronary artery bypass graft. 4. Dysphagia on tube feeds 5. Respiratory failure. Continue vent support. Will obtain a pulmonary consult from [facility]. 6. abdominal distension: CT unrevealing, minimal residual. 7. Anal cancer with recent rectal bleed. Status post radiation treatment. Her rectal bleeding is most probably from radiation proctitis 8. History of pulseless electrical activity with possible anoxic encephalopathy. Will continue to monitor. 9. History of GI bleed. 10. Dyslipidemia. 11. Anasarca, and ascites 12. Renal failure on dialysis 13. Encephalopathy, resolved patient is alert awake and oriented 14. Anemia multifactorial, stable now 15. Clogged G-tube Plan Continue present care G-tube is now declogged Flustered G-tube with warm water 20 cc 3 times daily to prevent the clogging of G-tube Consultation Date/Type/Reason Admit Date/Time Apr 08, 2017 at 16:19 Initial Consult Date 04/09/17 Type of Consultation: cv Referring Provider: IVAN MALLOY MD 24 HR Interval Summary Constitutional: improved, no complaints Exam/Review of Systems Vital Signs Vitals Vital Signs Date Time Temp Pulse Resp B/P Pulse Ox O2 Delivery O2 Flow Rate FiO2 04/26/17 12:14 86 04/26/17 11:15 14 99 30 04/26/17 07:58 99.1 97/56 Intake and Output 04/25/17 04/25/17 04/26/17 15:00 23:00 07:00 Intake Total 400 ml Output Total 2400 ml Balance -2000 ml Exam Constitutional: alert, oriented, well developed Psych: nl mood/affect, no complaints Head: atraumatic, normocephalic Eyes: EOMI, PERRL, nl conjunctiva, nl lids, nl sclera ENMT: nl external ears & nose, nl lips & teeth, nl nasal mucosa & septum Neck: non-tender, supple Respiratory: clear to auscultation, normal air movement Cardiovascular: nl pulses, regular rate and rhythm Gastrointestinal: nl liver, spleen, non-tender, soft Musculoskeletal: nl extremities to inspection, nl gait and stance Extremities: normal pulses 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, nl mental status, nl speech, nl strength Skin: nl turgor, No rash or lesions Lymph: nl lymph nodes Results Result Diagram: 04/26/17 0650 04/26/17 0650 Results 24 hrs Laboratory Tests Test 04/25/17 12:36 04/25/17 16:45 04/25/17 20:28 04/26/17 01:36 Bedside Glucose 174 118 196 114 Test 04/26/17 05:24 04/26/17 06:50 04/26/17 08:50 Bedside Glucose 139 168 White Blood Count 6.1 Red Blood Count 3.06 L Hemoglobin 9.2 L Hematocrit 28.9 L Mean Corpuscular Volume 94.4 Mean Corpuscular Hemoglobin 30.1 Mean Corpuscular Hemoglobin Concent 31.8 L Red Cell Distribution Width 18.3 H Platelet Count 91 L Mean Platelet Volume 11.4 H Neutrophils % 79.9 H Lymphocytes % 11.5 L Monocytes % 7.1 Eosinophils % 0.0 Basophils % 0.2 Nucleated Red Blood Cells % 0.0 Neutrophils # 4.9 Lymphocytes # 0.7 L Monocytes # 0.4 Eosinophils # 0.0 Basophils # 0.0 Nucleated Red Blood Cells # 0.0 Sodium Level 129 L Potassium Level 3.9 Chloride Level 97 Carbon Dioxide Level 28 Anion Gap 8 # Blood Urea Nitrogen 64 H Creatinine 2.35 H Glucose Level 149 Calcium Level 8.0 L Phosphorus Level 3.4 Magnesium Level 2.2 Medications Medications Current Medications Atorvastatin Calcium (Lipitor) 20 mg QHS GTB Last administered on 04/25/17t 20: 23; Admin Dose 20 MG; Start 04/08/17 at 21:00 Acetaminophen/ Hydrocodone Bitart ([place] (5/325)) 1 tab Q6H PRN GTB SEVERE PAIN LEVEL 7-10 Last administered on 04/25/17 08:36; Admin Dose 1 TAB; Start at 19:30 Albuterol/ Ipratropium (Duoneb) 3 ml Q2H PRN NEB SHORTNESS OF BREATH; Start at 19:30 Levothyroxine Sodium (Synthroid) 125 mcg DAILY@06 GTB Last administered on 04/26 05:20; Admin Dose 125 MCG; Start 04/09/17 at 06:00 Multivit/Ca Carb/ B Cmplx/FA/Prenat (Shalya-Anuradha) 1 tab DAILY GTB Last administered on 04/26/17 08:42; Admin Dose 1 TAB; Start 04/09/17 at 09:00 Quetiapine Fumarate (Seroquel) 25 mg BID GTB Last administered on 04/26/17 08: 43; Admin Dose 25 MG; Start 04/08/17 at 21:00 Trazodone HCl (Desyrel) 25 mg QHS PO Last administered on 04/25/17 20:23; Admin Dose 25 MG; Start 04/08/17 at 21:00 Acetaminophen (Tylenol Tab) 650 mg Q4H PRN PO PAIN AND OR ELEVATED TEMP; Start 04/08/17 at 19:30 Morphine Sulfate (morphine) 2 mg Q4H PRN IV PAIN LEVEL 8-10 Last administered on 04/25/17 20:23; Admin Dose 2 MG; Start 04/08/17 at 19:30 Miscellaneous Information 1 ea NOTE XX ; Start 04/08/17 at 20:00 Glucose (Glutose) 15 gm Q15M PRN PO DECREASED GLUCOSE; Start 04/08/17 at 20:00 Glucose (Glutose) 22.5 gm Q15M PRN PO DECREASED GLUCOSE; Start 04/08/17 at 20: 00 Dextrose (D50w Syringe) 25 ml Q15M PRN IV DECREASED GLUCOSE Last administered on 04/23/17 00:46; Admin Dose 25 ML; Start 04/08/17 at 20:00 Dextrose (D50w Syringe) 50 ml Q15M PRN IV DECREASED GLUCOSE Last administered on 04/23/17 05:50; Admin Dose 50 ML; Start 04/08/17 at 20:00 Glucagon (Glucagen) 1 mg Q15M PRN IM DECREASED GLUCOSE; Start 04/08/17 at 20:00 Glucose (Glutose) 15 gm Q15M PRN BUCCAL DECREASED GLUCOSE; Start 04/08/17 at 20 :00 Collagenase (Santyl) 1 applic DAILY TOP Last administered on 04/26/17 08:44; Admin Dose 1 APPLIC; Start 04/09/17 at 14:00 Collagenase (Santyl) 1 applic DAILY PRN TOP WHEN SOILED; Start 04/09/17 at 13: 00 IV Flush (NS 10 ml) 10 ml PRN PRN IV FLUSH LINE; Start 04/10/17 at 16:30 Metoclopramide HCl (Reglan Liq) 5 mg Q8 PO Last administered on 04/26/17 05:20 ; Admin Dose 5 MG; Start 04/12/17 at 08:30 Povidone Iodine (Povidone-Iodine) 1 applic DAILY TOP Last administered on 08:44; Admin Dose 1 APPLIC; Start 04/12/17 at 11:30 Insulin Aspart (Novolog Insulin Pen) NOVOLOG *MODERATE* ALGORI... Q4 SC Last administered on 04/26/17 08:51; Admin Dose 2 UNIT; Start 04/17/17 at 09:00 Acetaminophen (Tylenol Liquid) 650 mg Q6 PRN GTB PAIN AND OR ELEVATED TEMP Last administered on 04/22/17 00:39; Admin Dose 650 MG; Start 04/17/17 at 11:30 Lisinopril (Zestril) 2.5 mg DAILY GTB ; Start 04/23/17 at 09:00 Carvedilol (Coreg) 3.125 mg BID GTB Last administered on 04/25/17 20:35; Admin Dose 3.125 MG; Start 04/22/17 at 21:00 Insulin Detemir (Levemir) 4 unit BID SC Last administered on 04/26/17 08:50; Admin Dose 4 UNIT; Start 04/23/17 at 09:00 KAIN HOWELL MD Apr 26, 2017 12:20
--- NOTE | 2017-04-26 12:44 | CONS ---
Date/Time of Note Date/Time of Note DATE: 04/26/17 TIME: 12:42 Consult Date/Type/Reason Admit Date/Time Apr 08, 2017 at 16:19 Initial Consult Date 04/09/17 Type of Consultation: Pulm Ordering Provider: IVAN MALLOY MD Subjective Remains comfortable. Objective Vital Signs Date Time Temp Pulse Resp B/P Pulse Ox O2 Delivery O2 Flow Rate FiO2 04/26/17 12:30 98.2 88 19 117/57 96 04/26/17 11:15 30 Intake and Output 04/25/17 04/25/17 04/26/17 14:59 22:59 06:59 Intake Total 400 ml Output Total 2400 ml Balance -2000 ml Exam PHYSICAL EXAMINATION GENERAL: Elderly lady comfortable at rest on mechanical ventilation VITAL SIGNS: see below. HEENT: Pupils equal, round, and reactive to light. Tracheostomy site clean and intact. CARDIAC: S1, S2, 1/6 systolic ejection murmur CHEST: Diminished air entry bilaterally. ABDOMEN: Mildly distended. Bowel sounds present no guarding or rebound EXTREMITIES: No cyanosis, clubbing edema +1 NEUROLOGIC: Generalized weakness Results/Medications Result Diagram: 04/26/17 0650 04/26/17 0650 Results 24 hrs Laboratory Tests Test 04/25/17 16:45 04/25/17 20:28 04/26/17 01:36 04/26/17 05:24 Bedside Glucose 118 196 114 139 Test 04/26/17 06:50 04/26/17 08:50 White Blood Count 6.1 Red Blood Count 3.06 L Hemoglobin 9.2 L Hematocrit 28.9 L Mean Corpuscular Volume 94.4 Mean Corpuscular Hemoglobin 30.1 Mean Corpuscular Hemoglobin Concent 31.8 L Red Cell Distribution Width 18.3 H Platelet Count 91 L Mean Platelet Volume 11.4 H Neutrophils % 79.9 H Lymphocytes % 11.5 L Monocytes % 7.1 Eosinophils % 0.0 Basophils % 0.2 Nucleated Red Blood Cells % 0.0 Neutrophils # 4.9 Lymphocytes # 0.7 L Monocytes # 0.4 Eosinophils # 0.0 Basophils # 0.0 Nucleated Red Blood Cells # 0.0 Sodium Level 129 L Potassium Level 3.9 Chloride Level 97 Carbon Dioxide Level 28 Anion Gap 8 # Blood Urea Nitrogen 64 H Creatinine 2.35 H Glucose Level 149 Calcium Level 8.0 L Phosphorus Level 3.4 Magnesium Level 2.2 Bedside Glucose 168 Medications Current Medications Atorvastatin Calcium (Lipitor) 20 mg QHS GTB Last administered on 04/25/17 20: 23; Admin Dose 20 MG; Start 04/08/17 at 21:00 Acetaminophen/ Hydrocodone Bitart ([place] (5/325)) 1 tab Q6H PRN GTB SEVERE PAIN LEVEL 7-10 Last administered on 04/25/17 08:36; Admin Dose 1 TAB; Start at 19:30 Albuterol/ Ipratropium (Duoneb) 3 ml Q2H PRN NEB SHORTNESS OF BREATH; Start at 19:30 Levothyroxine Sodium (Synthroid) 125 mcg DAILY@06 GTB Last administered on 04/26 05:20; Admin Dose 125 MCG; Start 04/09/17 at 06:00 Multivit/Ca Carb/ B Cmplx/FA/Prenat (Shayla-Anuradha) 1 tab DAILY GTB Last administered on 04/26/17 08:42; Admin Dose 1 TAB; Start 04/09/17 at 09:00 Quetiapine Fumarate (Seroquel) 25 mg BID GTB Last administered on 04/26/17 08: 43; Admin Dose 25 MG; Start 04/08/17 at 21:00 Trazodone HCl (Desyrel) 25 mg QHS PO Last administered on 04/25/17 20:23; Admin Dose 25 MG; Start 04/08/17 at 21:00 Acetaminophen (Tylenol Tab) 650 mg Q4H PRN PO PAIN AND OR ELEVATED TEMP; Start 04/08/17 at 19:30 Morphine Sulfate (morphine) 2 mg Q4H PRN IV PAIN LEVEL 8-10 Last administered on 04/25/17 20:23; Admin Dose 2 MG; Start 04/08/17 at 19:30 Miscellaneous Information 1 ea NOTE XX ; Start 04/08/17 at 20:00 Glucose (Glutose) 15 gm Q15M PRN PO DECREASED GLUCOSE; Start 04/08/17 at 20:00 Glucose (Glutose) 22.5 gm Q15M PRN PO DECREASED GLUCOSE; Start 04/08/17 at 20: 00 Dextrose (D50w Syringe) 25 ml Q15M PRN IV DECREASED GLUCOSE Last administered on 04/23/17 00:46; Admin Dose 25 ML; Start 04/08/17 at 20:00 Dextrose (D50w Syringe) 50 ml Q15M PRN IV DECREASED GLUCOSE Last administered on 04/23/17 05:50; Admin Dose 50 ML; Start 04/08/17 at 20:00 Glucagon (Glucagen) 1 mg Q15M PRN IM DECREASED GLUCOSE; Start 04/08/17 at 20:00 Glucose (Glutose) 15 gm Q15M PRN BUCCAL DECREASED GLUCOSE; Start 04/08/17 at 20 :00 Collagenase (Santyl) 1 applic DAILY TOP Last administered on 04/26/17 08:44; Admin Dose 1 APPLIC; Start 04/09/17 at 14:00 Collagenase (Santyl) 1 applic DAILY PRN TOP WHEN SOILED; Start 04/09/17 at 13: 00 IV Flush (NS 10 ml) 10 ml PRN PRN IV FLUSH LINE; Start 04/10/17 at 16:30 Metoclopramide HCl (Reglan Liq) 5 mg Q8 PO Last administered on 04/26/17 05:20 ; Admin Dose 5 MG; Start 04/12/17 at 08:30 Povidone Iodine (Povidone-Iodine) 1 applic DAILY TOP Last administered on 08:44; Admin Dose 1 APPLIC; Start 04/12/17 at 11:30 Insulin Aspart (Novolog Insulin Pen) NOVOLOG *MODERATE* ALGORI... Q4 SC Last administered on 04/26/17 08:51; Admin Dose 2 UNIT; Start 04/17/17 at 09:00 Acetaminophen (Tylenol Liquid) 650 mg Q6 PRN GTB PAIN AND OR ELEVATED TEMP Last administered on 04/22/17 00:39; Admin Dose 650 MG; Start 04/17/17 at 11:30 Lisinopril (Zestril) 2.5 mg DAILY GTB ; Start 04/23/17 at 09:00 Carvedilol (Coreg) 3.125 mg BID GTB Last administered on 04/25/17 20:35; Admin Dose 3.125 MG; Start 04/22/17 at 21:00 Insulin Detemir (Levemir) 4 unit BID SC Last administered on 7/11/17at 08:50; Admin Dose 4 UNIT; Start 04/23/17 at 09:00 Assessment/Plan Chief Complaint/Hosp Course IMP: 1. Status post septic shock with klebsiella bacteremia 2. VDRF 3. ESRD on HD 4. CHF with tachycardia 5. Encephalopathy resolving RECS: 1. monitor off vasopressors 2. Continue HD/UF 3. Abx per ID 4. Continue tube feeding as tolerated [facility]. Problems: STEPHANIE BAIRES MD, [facility] Apr 26, 2017 12:43
--- NOTE | 2017-04-26 16:14 | CONS ---
Date/Time of Note Date/Time of Note DATE: 04/26/17 TIME: 16:12 Assessment/Plan Assessment/Plan Additional Assessment/Plan Nonsustained ventricular tachycardia Cardiomyopathy with ejection fraction 40% CAD with history of CABG Sepsis Kidney disease on hemodialysis -Telemetry reviewed with no episodes of ventricular tachycardia seen. Maintain potassium above 4.0 and magnesium above 2.0. Fluid management via hemodialysis as per our nephrology colleagues. Continue holding parameters on antihypertensives. Consultation Date/Type/Reason Admit Date/Time Apr 08, 2017 at 16:19 Initial Consult Date 04/09/17 Type of Consultation: cv Referring Provider: IVAN MALLOY MD 24 HR Interval Summary Free Text/Dictation Patient denies shortness of breath, palpitations or chest pain Exam/Review of Systems Vital Signs Vitals Vital Signs Date Time Temp Pulse Resp B/P Pulse Ox O2 Delivery O2 Flow Rate FiO2 04/26/17 15:15 66 14 100 30 04/26/17 12:30 98.2 117/57 Intake and Output 04/25/17 04/25/17 04/26/17 15:00 23:00 07:00 Intake Total 400 ml Output Total 2400 ml Balance -2000 ml Exam No apparent distress Constitutional: alert, frail, oriented Head: normocephalic Neck: other (Tracheostomy) Respiratory: other (Coarse breath sounds bilaterally, no wheezing) Cardiovascular: other (S1-S2 heard), regular rate and rhythm Gastrointestinal: bowel sounds, non-tender, soft Extremities: edema Results Result Diagram: 04/26/17 0650 04/26/17 0650 Results 24 hrs Laboratory Tests Test 04/25/17 16:45 04/25/17 20:28 04/26/17 01:36 04/26/17 05:24 Bedside Glucose 118 196 114 139 Test 04/26/17 06:50 04/26/17 08:50 04/26/17 12:40 White Blood Count 6.1 Red Blood Count 3.06 L Hemoglobin 9.2 L Hematocrit 28.9 L Mean Corpuscular Volume 94.4 Mean Corpuscular Hemoglobin 30.1 Mean Corpuscular Hemoglobin Concent 31.8 L Red Cell Distribution Width 18.3 H Platelet Count 91 L Mean Platelet Volume 11.4 H Neutrophils % 79.9 H Lymphocytes % 11.5 L Monocytes % 7.1 Eosinophils % 0.0 Basophils % 0.2 Nucleated Red Blood Cells % 0.0 Neutrophils # 4.9 Lymphocytes # 0.7 L Monocytes # 0.4 Eosinophils # 0.0 Basophils # 0.0 Nucleated Red Blood Cells # 0.0 Sodium Level 129 L Potassium Level 3.9 Chloride Level 97 Carbon Dioxide Level 28 Anion Gap 8 # Blood Urea Nitrogen 64 H Creatinine 2.35 H Glucose Level 149 Calcium Level 8.0 L Phosphorus Level 3.4 Magnesium Level 2.2 Bedside Glucose 168 144 Medications Medications Current Medications Atorvastatin Calcium (Lipitor) 20 mg QHS GTB Last administered on 04/25/17 20: 23; Admin Dose 20 MG; Start 04/08/17 at 21:00 Acetaminophen/ Hydrocodone Bitart ([place] (5/325)) 1 tab Q6H PRN GTB SEVERE PAIN LEVEL 7-10 Last administered on 04/25/17 08:36; Admin Dose 1 TAB; Start at 19:30 Albuterol/ Ipratropium (Duoneb) 3 ml Q2H PRN NEB SHORTNESS OF BREATH; Start at 19:30 Levothyroxine Sodium (Synthroid) 125 mcg DAILY@06 GTB Last administered on 04/26 05:20; Admin Dose 125 MCG; Start 04/09/17 at 06:00 Multivit/Ca Carb/ B Cmplx/FA/Prenat (Shayla-Anuradha) 1 tab DAILY GTB Last administered on 04/26/17 08:42; Admin Dose 1 TAB; Start 04/09/17 at 09:00 Quetiapine Fumarate (Seroquel) 25 mg BID GTB Last administered on 04/26/17 08: 43; Admin Dose 25 MG; Start 04/08/17 at 21:00 Trazodone HCl (Desyrel) 25 mg QHS PO Last administered on 04/25/17 20:23; Admin Dose 25 MG; Start 04/08/17 at 21:00 Acetaminophen (Tylenol Tab) 650 mg Q4H PRN PO PAIN AND OR ELEVATED TEMP; Start 04/08/17 at 19:30 Morphine Sulfate (morphine) 2 mg Q4H PRN IV PAIN LEVEL 8-10 Last administered on 04/25/17 20:23; Admin Dose 2 MG; Start 04/08/17 at 19:30 Miscellaneous Information 1 ea NOTE XX ; Start 04/08/17 at 20:00 Glucose (Glutose) 15 gm Q15M PRN PO DECREASED GLUCOSE; Start 04/08/17 at 20:00 Glucose (Glutose) 22.5 gm Q15M PRN PO DECREASED GLUCOSE; Start 04/08/17 at 20: 00 Dextrose (D50w Syringe) 25 ml Q15M PRN IV DECREASED GLUCOSE Last administered on 04/23/17 00:46; Admin Dose 25 ML; Start 04/08/17 at 20:00 Dextrose (D50w Syringe) 50 ml Q15M PRN IV DECREASED GLUCOSE Last administered on 04/23/17 05:50; Admin Dose 50 ML; Start 04/08/17 at 20:00 Glucagon (Glucagen) 1 mg Q15M PRN IM DECREASED GLUCOSE; Start 04/08/17 at 20:00 Glucose (Glutose) 15 gm Q15M PRN BUCCAL DECREASED GLUCOSE; Start 04/08/17 at 20 :00 Collagenase (Santyl) 1 applic DAILY TOP Last administered on 04/26/17 08:44; Admin Dose 1 APPLIC; Start 04/09/17 at 14:00 Collagenase (Santyl) 1 applic DAILY PRN TOP WHEN SOILED; Start 04/09/17 at 13: 00 IV Flush (NS 10 ml) 10 ml PRN PRN IV FLUSH LINE; Start 04/10/17 at 16:30 Metoclopramide HCl (Reglan Liq) 5 mg Q8 PO Last administered on 04/26/17 12:42 ; Admin Dose 5 MG; Start 04/12/17 at 08:30 Povidone Iodine (Povidone-Iodine) 1 applic DAILY TOP Last administered on 08:44; Admin Dose 1 APPLIC; Start 04/12/17 at 11:30 Insulin Aspart (Novolog Insulin Pen) NOVOLOG *MODERATE* ALGORI... Q4 SC Last administered on 04/26/17 12:41; Admin Dose 2 UNIT; Start 04/17/17 at 09:00 Acetaminophen (Tylenol Liquid) 650 mg Q6 PRN GTB PAIN AND OR ELEVATED TEMP Last administered on 04/22/17 00:39; Admin Dose 650 MG; Start 04/17/17 at 11:30 Lisinopril (Zestril) 2.5 mg DAILY GTB ; Start 04/23/17 at 09:00 Carvedilol (Coreg) 3.125 mg BID GTB Last administered on 04/25/17 20:35; Admin Dose 3.125 MG; Start 04/22/17 at 21:00 Insulin Detemir (Levemir) 4 unit BID SC Last administered on 04/26/17 08:50; Admin Dose 4 UNIT; Start 04/23/17 at 09:00 Biju Mcdaniels DO Apr 26, 2017 16:13
--- NOTE | 2017-04-26 16:37 | CONS ---
Date/Time of Note Date/Time of Note DATE: 04/26/17 TIME: 16:37 Assessment/Plan Assessment/Plan Chief Complaint/Hosp Course - septic shock due to bacteremia (Klebsiella) - resolved - bacteremia due to klebsiella, likely from PNA - complicated UTI due to enterobacter - treated with gent - possible HCAP due to klebsiella and pseudomonas, with moderate pleural effusion - treated with gent - acute toxic metabolic encephalopathy - improving - rectal bleeding at SNF prior to admission, possibly due to radiation proctitis. So far no bleeding after arrival - normocytic anemia - h/o anal CA s/p radiation - diverticulosis without diverticulitis on CT - mild ascites - NSVT - bloody secretion via trach, possible due to CHF - pulm edema and volume overload - ESRD on HD, via permacath on R chest wall. 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 Thurston Problems: Consultation Date/Type/Reason Admit Date/Time Apr 08, 2017 at 16:19 Initial Consult Date 04/09/17 Type of Consultation: Infectious Disease Referring Provider: IVAN MALLOY MD 24 HR Interval Summary Free Text/Dictation Afebrile; HD done yesterday. Nods no to c/o pain, SOB, n/v. ROS limited due to pt being non-verbal and sleepy. Subjective hx not possible: pt non-verbal Exam/Review of Systems Vital Signs Vitals Vital Signs Date Time Temp Pulse Resp B/P Pulse Ox O2 Delivery O2 Flow Rate FiO2 04/26/17 16:15 98.2 86 20 115/56 99 04/26/17 15:15 30 Intake and Output 04/25/17 04/25/17 04/26/17 15:00 23:00 07:00 Intake Total 400 ml Output Total 2400 ml Balance -2000 ml Exam Constitutional: WD, frail, non-verbal, chronically debilitated Head: atraumatic, normocephalic Eyes: nl conjunctiva, nl lids Neck: other (tracheostomy midline) Respiratory: few coarse breath sounds, other (R chest wall HD catheter intact) Cardiovascular: nl pulses, regular rate and rhythm Gastrointestinal: soft, NT, ND, bowel sounds present, other (G-tube in place with tube feeds) Musculoskeletal: swelling Extremities: edema Neurological: alert. Nods to simple questions. Skin: wounds (see nurse note and photo in chart for details; R great toe tip eschar and dressing on R heel c/d/i) Results Result Diagram: 04/26/17 0650 04/26/17 0650 Results 24 hrs Laboratory Tests Test 04/25/17 16:45 04/25/17 20:28 04/26/17 01:36 04/26/17 05:24 Bedside Glucose 118 196 114 139 Test 04/26/17 06:50 04/26/17 08:50 04/26/17 12:40 White Blood Count 6.1 Red Blood Count 3.06 L Hemoglobin 9.2 L Hematocrit 28.9 L Mean Corpuscular Volume 94.4 Mean Corpuscular Hemoglobin 30.1 Mean Corpuscular Hemoglobin Concent 31.8 L Red Cell Distribution Width 18.3 H Platelet Count 91 L Mean Platelet Volume 11.4 H Neutrophils % 79.9 H Lymphocytes % 11.5 L Monocytes % 7.1 Eosinophils % 0.0 Basophils % 0.2 Nucleated Red Blood Cells % 0.0 Neutrophils # 4.9 Lymphocytes # 0.7 L Monocytes # 0.4 Eosinophils # 0.0 Basophils # 0.0 Nucleated Red Blood Cells # 0.0 Sodium Level 129 L Potassium Level 3.9 Chloride Level 97 Carbon Dioxide Level 28 Anion Gap 8 # Blood Urea Nitrogen 64 H Creatinine 2.35 H Glucose Level 149 Calcium Level 8.0 L Phosphorus Level 3.4 Magnesium Level 2.2 Bedside Glucose 168 144 Medications Medications Current Medications Atorvastatin Calcium (Lipitor) 20 mg QHS GTB Last administered on 04/25/17t 20: 23; Admin Dose 20 MG; Start 04/08/17 at 21:00 Acetaminophen/ Hydrocodone Bitart ([place] (5/325)) 1 tab Q6H PRN GTB SEVERE PAIN LEVEL 7-10 Last administered on 04/25/17 08:36; Admin Dose 1 TAB; Start at 19:30 Albuterol/ Ipratropium (Duoneb) 3 ml Q2H PRN NEB SHORTNESS OF BREATH; Start at 19:30 Levothyroxine Sodium (Synthroid) 125 mcg DAILY@06 GTB Last administered on 04/26 05:20; Admin Dose 125 MCG; Start 04/09/17 at 06:00 Multivit/Ca Carb/ B Cmplx/FA/Prenat (Shayla-Anuradha) 1 tab DAILY GTB Last administered on 04/26/17 08:42; Admin Dose 1 TAB; Start 04/09/17 at 09:00 Quetiapine Fumarate (Seroquel) 25 mg BID GTB Last administered on 04/26/17 08: 43; Admin Dose 25 MG; Start 04/08/17 at 21:00 Trazodone HCl (Desyrel) 25 mg QHS PO Last administered on 04/25/17 20:23; Admin Dose 25 MG; Start 04/08/17 at 21:00 Acetaminophen (Tylenol Tab) 650 mg Q4H PRN PO PAIN AND OR ELEVATED TEMP; Start 04/08/17 at 19:30 Morphine Sulfate (morphine) 2 mg Q4H PRN IV PAIN LEVEL 8-10 Last administered on 04/25/17 20:23; Admin Dose 2 MG; Start 04/08/17 at 19:30 Miscellaneous Information 1 ea NOTE XX ; Start 04/08/17 at 20:00 Glucose (Glutose) 15 gm Q15M PRN PO DECREASED GLUCOSE; Start 04/08/17 at 20:00 Glucose (Glutose) 22.5 gm Q15M PRN PO DECREASED GLUCOSE; Start 04/08/17 at 20: 00 Dextrose (D50w Syringe) 25 ml Q15M PRN IV DECREASED GLUCOSE Last administered on 04/23/17 00:46; Admin Dose 25 ML; Start 04/08/17 at 20:00 Dextrose (D50w Syringe) 50 ml Q15M PRN IV DECREASED GLUCOSE Last administered on 04/23/17 05:50; Admin Dose 50 ML; Start 04/08/17 at 20:00 Glucagon (Glucagen) 1 mg Q15M PRN IM DECREASED GLUCOSE; Start 04/08/17 at 20:00 Glucose (Glutose) 15 gm Q15M PRN BUCCAL DECREASED GLUCOSE; Start 04/08/17 at 20 :00 Collagenase (Santyl) 1 applic DAILY TOP Last administered on 04/26/17 08:44; Admin Dose 1 APPLIC; Start 04/09/17 at 14:00 Collagenase (Santyl) 1 applic DAILY PRN TOP WHEN SOILED; Start 04/09/17 at 13: 00 IV Flush (NS 10 ml) 10 ml PRN PRN IV FLUSH LINE; Start 04/10/17 at 16:30 Metoclopramide HCl (Reglan Liq) 5 mg Q8 PO Last administered on 04/26/17 12:42 ; Admin Dose 5 MG; Start 04/12/17 at 08:30 Povidone Iodine (Povidone-Iodine) 1 applic DAILY TOP Last administered on 08:44; Admin Dose 1 APPLIC; Start 04/12/17 at 11:30 Insulin Aspart (Novolog Insulin Pen) NOVOLOG *MODERATE* ALGORI... Q4 SC Last administered on 04/26/17 12:41; Admin Dose 2 UNIT; Start 04/17/17 at 09:00 Acetaminophen (Tylenol Liquid) 650 mg Q6 PRN GTB PAIN AND OR ELEVATED TEMP Last administered on 04/22/17 00:39; Admin Dose 650 MG; Start 04/17/17 at 11:30 Lisinopril (Zestril) 2.5 mg DAILY GTB ; Start 04/23/17 at 09:00 Carvedilol (Coreg) 3.125 mg BID GTB Last administered on 04/25/17 20:35; Admin Dose 3.125 MG; Start 04/22/17 at 21:00 Insulin Detemir (Levemir) 4 unit BID SC Last administered on 04/26/17 08:50; Admin Dose 4 UNIT; Start 04/23/17 at 09:00 VARINDER JULES NP Apr 26, 2017 16:37
--- NOTE | 2017-04-26 16:38 | CONS ---
Date/Time of Note Date/Time of Note DATE: 04/25/17 TIME: 12:00 Assessment/Plan Assessment/Plan Chief Complaint/Hosp Course - septic shock due to bacteremia (Klebsiella) - resolved - bacteremia due to klebsiella, likely from PNA - complicated UTI due to enterobacter - possible HCAP due to klebsiella and pseudomonas, with moderate pleural effusion - acute toxic metabolic encephalopathy - improving - rectal bleeding at SNF prior to admission, possibly due to radiation proctitis. So far no bleeding after arrival - normocytic anemia - h/o anal CA s/p radiation - diverticulosis without diverticulitis on CT - mild ascites - bloody secretion via trach, possible due to CHF - pulm edema and volume overload - ESRD on HD, via permacath on R chest wall. 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 - ventilator dependent resp failure s/p tracheostomy placement - G tube dependent status - diarrhea; C diff negative - resolved - reported allergy to penicillin and sulfa drugs - reactions unknown - s/p meropenem 04/08/17-04/18/17 recommendations: - panculture for temp >100.4 F - monitor off abx - check procalcitonin Problems: Consultation Date/Type/Reason Admit Date/Time Apr 08, 2017 at 16:19 Initial Consult Date 04/09/17 Type of Consultation: id Referring Provider: IVAN MALLOY MD 24 HR Interval Summary Free Text/Dictation sleeping peacefully Exam/Review of Systems Vital Signs Vitals Vital Signs Date Time Temp Pulse Resp B/P Pulse Ox O2 Delivery O2 Flow Rate FiO2 04/26/17 16:15 98.2 86 20 115/56 99 04/26/17 15:15 30 Intake and Output 04/25/17 04/25/17 04/26/17 15:00 23:00 07:00 Intake Total 400 ml Output Total 2400 ml Balance -2000 ml Exam sleeping peacefully Constitutional: non-verbal Psych: nl mood/affect, no complaints Head: atraumatic, normocephalic Eyes: EOMI, PERRL, nl conjunctiva, nl lids, nl sclera ENMT: nl external ears & nose, nl lips & teeth, nl nasal mucosa & septum Respiratory: clear to auscultation, normal air movement Cardiovascular: nl pulses, regular rate and rhythm Results Result Diagram: 04/26/17 0650 04/26/17 0650 Results 24 hrs Laboratory Tests Test 04/25/17 16:45 04/25/17 20:28 04/26/17 01:36 04/26/17 05:24 Bedside Glucose 118 196 114 139 Test 04/26/17 06:50 04/26/17 08:50 04/26/17 12:40 White Blood Count 6.1 Red Blood Count 3.06 L Hemoglobin 9.2 L Hematocrit 28.9 L Mean Corpuscular Volume 94.4 Mean Corpuscular Hemoglobin 30.1 Mean Corpuscular Hemoglobin Concent 31.8 L Red Cell Distribution Width 18.3 H Platelet Count 91 L Mean Platelet Volume 11.4 H Neutrophils % 79.9 H Lymphocytes % 11.5 L Monocytes % 7.1 Eosinophils % 0.0 Basophils % 0.2 Nucleated Red Blood Cells % 0.0 Neutrophils # 4.9 Lymphocytes # 0.7 L Monocytes # 0.4 Eosinophils # 0.0 Basophils # 0.0 Nucleated Red Blood Cells # 0.0 Sodium Level 129 L Potassium Level 3.9 Chloride Level 97 Carbon Dioxide Level 28 Anion Gap 8 # Blood Urea Nitrogen 64 H Creatinine 2.35 H Glucose Level 149 Calcium Level 8.0 L Phosphorus Level 3.4 Magnesium Level 2.2 Bedside Glucose 168 144 Medications Medications Current Medications Atorvastatin Calcium (Lipitor) 20 mg QHS GTB Last administered on 04/25/17 20: 23; Admin Dose 20 MG; Start 04/08/17 at 21:00 Acetaminophen/ Hydrocodone Bitart ([place] (5/325)) 1 tab Q6H PRN GTB SEVERE PAIN LEVEL 7-10 Last administered on 04/25/17 08:36; Admin Dose 1 TAB; Start at 19:30 Albuterol/ Ipratropium (Duoneb) 3 ml Q2H PRN NEB SHORTNESS OF BREATH; Start at 19:30 Levothyroxine Sodium (Synthroid) 125 mcg DAILY@06 GTB Last administered on 04/26 05:20; Admin Dose 125 MCG; Start 04/09/17 at 06:00 Multivit/Ca Carb/ B Cmplx/FA/Prenat (Shayla-Anuradha) 1 tab DAILY GTB Last administered on 04/26/17 08:42; Admin Dose 1 TAB; Start 04/09/17 at 09:00 Quetiapine Fumarate (Seroquel) 25 mg BID GTB Last administered on 04/26/17 08: 43; Admin Dose 25 MG; Start 04/08/17 at 21:00 Trazodone HCl (Desyrel) 25 mg QHS PO Last administered on 04/25/17 20:23; Admin Dose 25 MG; Start 04/08/17 at 21:00 Acetaminophen (Tylenol Tab) 650 mg Q4H PRN PO PAIN AND OR ELEVATED TEMP; Start 04/08/17 at 19:30 Morphine Sulfate (morphine) 2 mg Q4H PRN IV PAIN LEVEL 8-10 Last administered on 04/25/17 20:23; Admin Dose 2 MG; Start 04/08/17 at 19:30 Miscellaneous Information 1 ea NOTE XX ; Start 04/08/17 at 20:00 Glucose (Glutose) 15 gm Q15M PRN PO DECREASED GLUCOSE; Start 04/08/17 at 20:00 Glucose (Glutose) 22.5 gm Q15M PRN PO DECREASED GLUCOSE; Start 04/08/17 at 20: 00 Dextrose (D50w Syringe) 25 ml Q15M PRN IV DECREASED GLUCOSE Last administered on 04/23/17 00:46; Admin Dose 25 ML; Start 04/08/17 at 20:00 Dextrose (D50w Syringe) 50 ml Q15M PRN IV DECREASED GLUCOSE Last administered on 04/23/17 05:50; Admin Dose 50 ML; Start 04/08/17 at 20:00 Glucagon (Glucagen) 1 mg Q15M PRN IM DECREASED GLUCOSE; Start 04/08/17 at 20:00 Glucose (Glutose) 15 gm Q15M PRN BUCCAL DECREASED GLUCOSE; Start 04/08/17 at 20 :00 Collagenase (Santyl) 1 applic DAILY TOP Last administered on 04/26/17 08:44; Admin Dose 1 APPLIC; Start 04/09/17 at 14:00 Collagenase (Santyl) 1 applic DAILY PRN TOP WHEN SOILED; Start 04/09/17 at 13: 00 IV Flush (NS 10 ml) 10 ml PRN PRN IV FLUSH LINE; Start 04/10/17 at 16:30 Metoclopramide HCl (Reglan Liq) 5 mg Q8 PO Last administered on 04/26/17 12:42 ; Admin Dose 5 MG; Start 04/12/17 at 08:30 Povidone Iodine (Povidone-Iodine) 1 applic DAILY TOP Last administered on 08:44; Admin Dose 1 APPLIC; Start 04/12/17 at 11:30 Insulin Aspart (Novolog Insulin Pen) NOVOLOG *MODERATE* ALGORI... Q4 SC Last administered on 04/26/17 12:41; Admin Dose 2 UNIT; Start 04/17/17 at 09:00 Acetaminophen (Tylenol Liquid) 650 mg Q6 PRN GTB PAIN AND OR ELEVATED TEMP Last administered on 04/22/17 00:39; Admin Dose 650 MG; Start 04/17/17 at 11:30 Lisinopril (Zestril) 2.5 mg DAILY GTB ; Start 04/23/17 at 09:00 Carvedilol (Coreg) 3.125 mg BID GTB Last administered on 04/25/17 20:35; Admin Dose 3.125 MG; Start 04/22/17 at 21:00 Insulin Detemir (Levemir) 4 unit BID SC Last administered on 04/26/17 08:50; Admin Dose 4 UNIT; Start 04/23/17 at 09:00 PATY BOND MD Apr 26, 2017 16:38
--- NOTE | 2017-04-26 17:14 | PN ---
Date/Time of Note Date/Time of Note DATE: 04/26/17 TIME: 17:11 Assessment/Plan VTE Prophylaxis VTE Prophylaxis Intervention: SCD's Lines/Catheters IV [facility] PERMACATH Urinary Cath still in place: Yes Reason Cath still needed: urinary retention Assessment/Plan Chief Complaint/Hosp Course Patient with mild hyponatremia, decreased water flushes via G-tube, no acute events, patient remains hemodynamically stable. Assessment/Plan - S/p septic shock with Klebsiella bacteremia, Completed the course of antibiotics. Dr. Thurston group is following in infection disease consultation. - Acute respiratory failure. Continue ventilatory support. - Diabetes mellitus. Continue Levemir and NovoLog. - Systolic heart failure. Continue hemodialysis for fluid removal. - End-stage renal disease. Continue hemodialysis. - Anoxic encephalopathy. No acute issues. - Anemia of chronic disease. Continue Epogen. - Hypothyroidism. Continue Synthroid. - Dyslipidemia. Continue Lipitor. - Possible history of psychosis. Continue Seroquel and trazodone. Pending Quinn evaluation. Further recommendations based on clinical course. Plan of care discussed with Dr. Guerrero. Problems: Exam/Review of Systems Vital Signs Vitals Vital Signs Date Time Temp Pulse Resp B/P Pulse Ox O2 Delivery O2 Flow Rate FiO2 04/26/17 16:39 85 04/26/17 16:15 98.2 20 115/56 99 04/26/17 15:15 30 Intake and Output 04/25/17 04/25/17 04/26/17 15:00 23:00 07:00 Intake Total 400 ml Output Total 2400 ml Balance -2000 ml Exam Constitutional: alert Head: normocephalic Neck: other (Tracheostomy), supple Respiratory: diminished breath sounds Cardiovascular: nl pulses Gastrointestinal: non-tender, other (GT), soft Extremities: normal pulses Neurological: nl mental status Results Result Diagram: 04/26/17 0650 04/26/17 0650 Results 24 hrs Laboratory Tests Test 04/25/17 20:28 04/26/17 01:36 04/26/17 05:24 04/26/17 06:50 Bedside Glucose 196 114 139 White Blood Count 6.1 Red Blood Count 3.06 L Hemoglobin 9.2 L Hematocrit 28.9 L Mean Corpuscular Volume 94.4 Mean Corpuscular Hemoglobin 30.1 Mean Corpuscular Hemoglobin Concent 31.8 L Red Cell Distribution Width 18.3 H Platelet Count 91 L Mean Platelet Volume 11.4 H Neutrophils % 79.9 H Lymphocytes % 11.5 L Monocytes % 7.1 Eosinophils % 0.0 Basophils % 0.2 Nucleated Red Blood Cells % 0.0 Neutrophils # 4.9 Lymphocytes # 0.7 L Monocytes # 0.4 Eosinophils # 0.0 Basophils # 0.0 Nucleated Red Blood Cells # 0.0 Sodium Level 129 L Potassium Level 3.9 Chloride Level 97 Carbon Dioxide Level 28 Anion Gap 8 # Blood Urea Nitrogen 64 H Creatinine 2.35 H Glucose Level 149 Calcium Level 8.0 L Phosphorus Level 3.4 Magnesium Level 2.2 Test 04/26/17 08:50 04/26/17 12:40 Bedside Glucose 168 144 Medications Medications Current Medications Atorvastatin Calcium (Lipitor) 20 mg QHS GTB Last administered on 04/25/17 20: 23; Admin Dose 20 MG; Start 04/08/17 at 21:00 Acetaminophen/ Hydrocodone Bitart ([place] (5/325)) 1 tab Q6H PRN GTB SEVERE PAIN LEVEL 7-10 Last administered on 04/25/17 08:36; Admin Dose 1 TAB; Start at 19:30 Albuterol/ Ipratropium (Duoneb) 3 ml Q2H PRN NEB SHORTNESS OF BREATH; Start at 19:30 Levothyroxine Sodium (Synthroid) 125 mcg DAILY@06 GTB Last administered on 04/26 05:20; Admin Dose 125 MCG; Start 04/09/17 at 06:00 Multivit/Ca Carb/ B Cmplx/FA/Prenat (Shayla-Anuradha) 1 tab DAILY GTB Last administered on 04/26/17 08:42; Admin Dose 1 TAB; Start 04/09/17 at 09:00 Quetiapine Fumarate (Seroquel) 25 mg BID GTB Last administered on 04/26/17 08: 43; Admin Dose 25 MG; Start 04/08/17 at 21:00 Trazodone HCl (Desyrel) 25 mg QHS PO Last administered on 04/25/17 20:23; Admin Dose 25 MG; Start 04/08/17 at 21:00 Acetaminophen (Tylenol Tab) 650 mg Q4H PRN PO PAIN AND OR ELEVATED TEMP; Start 04/08/17 at 19:30 Morphine Sulfate (morphine) 2 mg Q4H PRN IV PAIN LEVEL 8-10 Last administered on 04/25/17 20:23; Admin Dose 2 MG; Start 04/08/17 at 19:30 Miscellaneous Information 1 ea NOTE XX ; Start 04/08/17 at 20:00 Glucose (Glutose) 15 gm Q15M PRN PO DECREASED GLUCOSE; Start 04/08/17 at 20:00 Glucose (Glutose) 22.5 gm Q15M PRN PO DECREASED GLUCOSE; Start 04/08/17 at 20: 00 Dextrose (D50w Syringe) 25 ml Q15M PRN IV DECREASED GLUCOSE Last administered on 04/23/17 00:46; Admin Dose 25 ML; Start 04/08/17 at 20:00 Dextrose (D50w Syringe) 50 ml Q15M PRN IV DECREASED GLUCOSE Last administered on 04/23/17 05:50; Admin Dose 50 ML; Start 04/08/17 at 20:00 Glucagon (Glucagen) 1 mg Q15M PRN IM DECREASED GLUCOSE; Start 04/08/17 at 20:00 Glucose (Glutose) 15 gm Q15M PRN BUCCAL DECREASED GLUCOSE; Start 04/08/17 at 20 :00 Collagenase (Santyl) 1 applic DAILY TOP Last administered on 04/26/17 08:44; Admin Dose 1 APPLIC; Start 04/09/17 at 14:00 Collagenase (Santyl) 1 applic DAILY PRN TOP WHEN SOILED; Start 04/09/17 at 13: 00 IV Flush (NS 10 ml) 10 ml PRN PRN IV FLUSH LINE; Start 04/10/17 at 16:30 Metoclopramide HCl (Reglan Liq) 5 mg Q8 PO Last administered on 04/26/17 12:42 ; Admin Dose 5 MG; Start 04/12/17 at 08:30 Povidone Iodine (Povidone-Iodine) 1 applic DAILY TOP Last administered on 08:44; Admin Dose 1 APPLIC; Start 04/12/17 at 11:30 Insulin Aspart (Novolog Insulin Pen) NOVOLOG *MODERATE* ALGORI... Q4 SC Last administered on 04/26/17 12:41; Admin Dose 2 UNIT; Start 04/17/17 at 09:00 Acetaminophen (Tylenol Liquid) 650 mg Q6 PRN GTB PAIN AND OR ELEVATED TEMP Last administered on 04/22/17 00:39; Admin Dose 650 MG; Start 04/17/17 at 11:30 Lisinopril (Zestril) 2.5 mg DAILY GTB ; Start 04/23/17 at 09:00 Carvedilol (Coreg) 3.125 mg BID GTB Last administered on 04/25/17 20:35; Admin Dose 3.125 MG; Start 04/22/17 at 21:00 Insulin Detemir (Levemir) 4 unit BID SC Last administered on 04/26/17 08:50; Admin Dose 4 UNIT; Start 04/23/17 at 09:00 HIEU DALY Apr 26, 2017 17:14
[2017-04-26] MEDS: ATORVASTATIN 20 MG TAB GTB SCH (20:50)
[2017-04-26] MEDS: traZODone 50 MG TAB PO SCH (20:50)
[2017-04-27] VITALS (31 sets, daily range): BP systolic 97–139; BP diastolic 43–62; PULSE 80–93; RESP 14–20
[2017-04-27] MEDS: INSULIN ASPART [NOVOLOG] 3 ML PEN SC SCH ×6 (01:00→21:05)
[2017-04-27] MEDS: LEVOTHYROXINE 125 MCG TAB GTB SCH (05:06)
[2017-04-27] MEDS: METOCLOPRAMIDE (1 MG/ML) 10 ML CUP PO SCH ×3 (05:06→21:10)
[2017-04-27] MEDS: morphine 2 MG INJ IV PRN (05:15)
[2017-04-27 08:50] LABS: ADD SCAN DIFF NO
[2017-04-27 09:00] LABS: ABNORMAL IP MESSAGE 1; HEMATOCRIT 27.1 % (37.0-47.0); HEMOGLOBIN 8.8 g/dl (12.0-16.0); LYMPHOCYTES # 0.7 10^3/ul (0.8-2.9); LYMPHOCYTES % 10.7 % (15.0-51.0); MEAN CORPUSCULAR HGB CONC 32.5 g/dl (32.0-37.0); MEAN CORPUSCULAR VOLUME 95.4 fl (82.0-101.0); MEAN PLATELET VOLUME 11.5 fl (7.4-10.4); MONOCYTE # 0.5 10^3/ul (0.3-0.9); MONOCYTES % 7.1 % (0.0-11.0); NEUTROPHIL # 5.1 10^3/ul (1.6-7.5); NEUTROPHILS % 80.5 % (39.0-77.0); PLATELET COUNT 88 10^3/UL (140-415); RED BLOOD COUNT 2.84 10^6/ul (4.20-5.40); RED CELL DISTRIBUTION WIDTH 18.6 % (11.5-14.5); WHITE BLOOD COUNT 6.3 10^3/ul (4.8-10.8)
[2017-04-27] MEDS: LISINOPRIL 5 MG TAB GTB SCH (09:00)
[2017-04-27 09:26] LABS: CREATININE 2.84 mg/dl (0.44-1.00); MAGNESIUM 2.3 mg/dl (1.7-2.5); POTASSIUM 4.1 mmol/L (3.5-5.1)
[2017-04-27] MEDS: QUETIAPINE 25 MG TAB GTB SCH ×2 (09:37→20:58)
[2017-04-27] MEDS: MULTIVIT/CA CARB/B CMPLX/FA TAB GTB SCH (09:37)
[2017-04-27] MEDS: LANSOPRAZOLE 30 MG CAP GTB SCH ×2 (09:37→16:40)
[2017-04-27] MEDS: POVIDONE IODINE 10% 28.4 GM OINT TOP SCH (09:38)
[2017-04-27] MEDS: COLLAGENASE 30 GM TUBE TOP SCH (09:38)
[2017-04-27] MEDS: INSULIN DETEMIR [LEVEMIR] 3ML CART SC SCH ×2 (09:44→21:05)
--- NOTE | 2017-04-27 11:29 | CONS ---
Date/Time of Note Date/Time of Note DATE: 04/27/17 TIME: 11:28 Assessment/Plan Assessment/Plan Additional Assessment/Plan Nonsustained ventricular tachycardia Cardiomyopathy with ejection fraction 40% CAD with history of CABG Sepsis Kidney disease on hemodialysis -Telemetry reviewed with no episodes of ventricular tachycardia seen. Maintain potassium above 4.0 and magnesium above 2.0. Fluid management via hemodialysis as per our nephrology colleagues. Continue holding parameters on antihypertensives. Consultation Date/Type/Reason Admit Date/Time Apr 08, 2017 at 16:19 Initial Consult Date 04/09/17 Type of Consultation: cv Referring Provider: IVAN MALLOY MD 24 HR Interval Summary Free Text/Dictation Denies shortness of breath or palpitations Exam/Review of Systems Vital Signs Vitals Vital Signs Date Time Temp Pulse Resp B/P Pulse Ox O2 Delivery O2 Flow Rate FiO2 04/27/17 11:11 95 20 99 30 04/27/17 07:45 98.4 113/60 Intake and Output 04/26/17 04/26/17 04/27/17 15:00 23:00 07:00 Intake Total 540 ml 510 ml 480 ml Output Total 50 ml 50 ml 25 ml Balance 490 ml 460 ml 455 ml Exam No apparent distress Constitutional: alert, frail, oriented Head: normocephalic Neck: other (Trach) Respiratory: other (Coarse breath sounds bilaterally, no wheezing) Cardiovascular: other (S1-S2 heard), regular rate and rhythm Gastrointestinal: bowel sounds, non-tender, soft Extremities: edema Results Result Diagram: 04/27/17 0745 04/27/17 0745 Results 24 hrs Laboratory Tests Test 04/26/17 12:40 04/26/17 17:30 04/26/17 20:53 04/27/17 02:10 Bedside Glucose 144 162 135 132 Test 04/27/17 05:05 04/27/17 07:45 04/27/17 08:09 Bedside Glucose 141 130 White Blood Count 6.3 Red Blood Count 2.84 L Hemoglobin 8.8 L Hematocrit 27.1 L Mean Corpuscular Volume 95.4 Mean Corpuscular Hemoglobin 31.0 Mean Corpuscular Hemoglobin Concent 32.5 Red Cell Distribution Width 18.6 H Platelet Count 88 L Mean Platelet Volume 11.5 H Neutrophils % 80.5 H Lymphocytes % 10.7 L Monocytes % 7.1 Eosinophils % 0.0 Basophils % 0.0 Nucleated Red Blood Cells % 0.0 Neutrophils # 5.1 Lymphocytes # 0.7 L Monocytes # 0.5 Eosinophils # 0.0 Basophils # 0.0 Nucleated Red Blood Cells # 0.0 Sodium Level 128 L Potassium Level 4.1 Chloride Level 95 L Carbon Dioxide Level 28 Anion Gap 9 Blood Urea Nitrogen 81 H Creatinine 2.84 H Glucose Level 126 Calcium Level 8.0 L Phosphorus Level 4.0 Magnesium Level 2.3 Medications Medications Current Medications Atorvastatin Calcium (Lipitor) 20 mg QHS GTB Last administered on 04/26/17 20: 50; Admin Dose 20 MG; Start 04/08/17 at 21:00 Acetaminophen/ Hydrocodone Bitart ([place] (5/325)) 1 tab Q6H PRN GTB SEVERE PAIN LEVEL 7-10 Last administered on 04/25/17 08:36; Admin Dose 1 TAB; Start at 19:30 Albuterol/ Ipratropium (Duoneb) 3 ml Q2H PRN NEB SHORTNESS OF BREATH; Start at 19:30 Levothyroxine Sodium (Synthroid) 125 mcg DAILY@06 GTB Last administered on 04/27 05:06; Admin Dose 125 MCG; Start 04/09/17 at 06:00 Multivit/Ca Carb/ B Cmplx/FA/Prenat (Shayla-Anuradha) 1 tab DAILY GTB Last administered on 04/27/17 09:37; Admin Dose 1 TAB; Start 04/09/17 at 09:00 Quetiapine Fumarate (Seroquel) 25 mg BID GTB Last administered on 04/27/17 09: 37; Admin Dose 25 MG; Start 04/08/17 at 21:00 Trazodone HCl (Desyrel) 25 mg QHS PO Last administered on 04/26/17 20:50; Admin Dose 25 MG; Start 04/08/17 at 21:00 Acetaminophen (Tylenol Tab) 650 mg Q4H PRN PO PAIN AND OR ELEVATED TEMP; Start 04/08/17 at 19:30 Morphine Sulfate (morphine) 2 mg Q4H PRN IV PAIN LEVEL 8-10 Last administered on 04/27/17 05:15; Admin Dose 2 MG; Start 04/08/17 at 19:30 Miscellaneous Information 1 ea NOTE XX ; Start 04/08/17 at 20:00 Glucose (Glutose) 15 gm Q15M PRN PO DECREASED GLUCOSE; Start 04/08/17 at 20:00 Glucose (Glutose) 22.5 gm Q15M PRN PO DECREASED GLUCOSE; Start 04/08/17 at 20: 00 Dextrose (D50w Syringe) 25 ml Q15M PRN IV DECREASED GLUCOSE Last administered on 04/23/17 00:46; Admin Dose 25 ML; Start 04/08/17 at 20:00 Dextrose (D50w Syringe) 50 ml Q15M PRN IV DECREASED GLUCOSE Last administered on 04/23/17 05:50; Admin Dose 50 ML; Start 04/08/17 at 20:00 Glucagon (Glucagen) 1 mg Q15M PRN IM DECREASED GLUCOSE; Start 04/08/17 at 20:00 Glucose (Glutose) 15 gm Q15M PRN BUCCAL DECREASED GLUCOSE; Start 04/08/17 at 20 :00 Collagenase (Santyl) 1 applic DAILY TOP Last administered on 04/27/17 09:38; Admin Dose 1 APPLIC; Start 04/09/17 at 14:00 Collagenase (Santyl) 1 applic DAILY PRN TOP WHEN SOILED; Start 04/09/17 at 13: 00 IV Flush (NS 10 ml) 10 ml PRN PRN IV FLUSH LINE; Start 04/10/17 at 16:30 Metoclopramide HCl (Reglan Liq) 5 mg Q8 PO Last administered on 04/27/17 05:06 ; Admin Dose 5 MG; Start 04/12/17 at 08:30 Povidone Iodine (Povidone-Iodine) 1 applic DAILY TOP Last administered on 09:38; Admin Dose 1 APPLIC; Start 04/12/17 at 11:30 Insulin Aspart (Novolog Insulin Pen) NOVOLOG *MODERATE* ALGORI... Q4 SC Last administered on 04/27/17 05:07; Admin Dose 2 UNIT; Start 04/17/17 at 09:00 Acetaminophen (Tylenol Liquid) 650 mg Q6 PRN GTB PAIN AND OR ELEVATED TEMP Last administered on 04/22/17 00:39; Admin Dose 650 MG; Start 04/17/17 at 11:30 Lisinopril (Zestril) 2.5 mg DAILY GTB ; Start 04/23/17 at 09:00 Carvedilol (Coreg) 3.125 mg BID GTB Last administered on 04/26/17 20:50; Admin Dose 3.125 MG; Start 04/22/17 at 21:00 Insulin Detemir (Levemir) 4 unit BID SC Last administered on 04/27/17 09:44; Admin Dose 4 UNIT; Start 04/23/17 at 09:00 Biju Mcdaniels DO Apr 27, 2017 11:29
--- NOTE | 2017-04-27 12:06 | PN ---
Date/Time of Note Date/Time of Note DATE: 04/27/17 TIME: 12:02 Assessment/Plan VTE Prophylaxis VTE Prophylaxis Intervention: SCD's Lines/Catheters IV [facility] PERMACATH Urinary Cath still in place: Yes Reason Cath still needed: urinary retention Assessment/Plan Chief Complaint/Hosp Course No acute events overnight, pending hemodialysis today. Assessment/Plan - Hyponatremia secondary to end-stage renal disease - Acute on chronic respiratory failure. Continue ventilatory support. - Diabetes mellitus. Continue Levemir and NovoLog. - Systolic heart failure. Continue hemodialysis for fluid removal. - Cardiomyopathy with ejection fraction 40% - CAD with history of CABG. - End-stage renal disease. Continue hemodialysis. - Anoxic encephalopathy. No acute issues. - Anemia of chronic disease. Continue Epogen. - Hypothyroidism. Continue Synthroid. - Dyslipidemia. Continue Lipitor. - Possible history of psychosis. Continue Seroquel and trazodone. - S/p septic shock with Klebsiella bacteremia, Completed the course of antibiotics. Pending Quinn evaluation. Further recommendations based on clinical course. Plan of care discussed with Dr. Guerrero. Problems: Exam/Review of Systems Vital Signs Vitals Vital Signs Date Time Temp Pulse Resp B/P Pulse Ox O2 Delivery O2 Flow Rate FiO2 04/27/17 11:30 98.6 90 19 120/61 97 04/27/17 11:11 30 Intake and Output 04/26/17 04/26/17 04/27/17 15:00 23:00 07:00 Intake Total 540 ml 510 ml 480 ml Output Total 50 ml 50 ml 25 ml Balance 490 ml 460 ml 455 ml Exam Constitutional: alert Head: normocephalic Neck: other (Tracheostomy), supple Respiratory: diminished breath sounds Cardiovascular: nl pulses Gastrointestinal: non-tender, other (GT), soft Extremities: normal pulses Neurological: nl mental status Results Result Diagram: 04/27/17 0745 04/27/17 0745 Results 24 hrs Laboratory Tests Test 04/26/17 12:40 04/26/17 17:30 04/26/17 20:53 04/27/17 02:10 Bedside Glucose 144 162 135 132 Test 04/27/17 05:05 04/27/17 07:45 04/27/17 08:09 Bedside Glucose 141 130 White Blood Count 6.3 Red Blood Count 2.84 L Hemoglobin 8.8 L Hematocrit 27.1 L Mean Corpuscular Volume 95.4 Mean Corpuscular Hemoglobin 31.0 Mean Corpuscular Hemoglobin Concent 32.5 Red Cell Distribution Width 18.6 H Platelet Count 88 L Mean Platelet Volume 11.5 H Neutrophils % 80.5 H Lymphocytes % 10.7 L Monocytes % 7.1 Eosinophils % 0.0 Basophils % 0.0 Nucleated Red Blood Cells % 0.0 Neutrophils # 5.1 Lymphocytes # 0.7 L Monocytes # 0.5 Eosinophils # 0.0 Basophils # 0.0 Nucleated Red Blood Cells # 0.0 Sodium Level 128 L Potassium Level 4.1 Chloride Level 95 L Carbon Dioxide Level 28 Anion Gap 9 Blood Urea Nitrogen 81 H Creatinine 2.84 H Glucose Level 126 Calcium Level 8.0 L Phosphorus Level 4.0 Magnesium Level 2.3 Medications Medications Current Medications Atorvastatin Calcium (Lipitor) 20 mg QHS GTB Last administered on 04/26/17 20: 50; Admin Dose 20 MG; Start 04/08/17 at 21:00 Acetaminophen/ Hydrocodone Bitart ([place] (5/325)) 1 tab Q6H PRN GTB SEVERE PAIN LEVEL 7-10 Last administered on 04/25/17 08:36; Admin Dose 1 TAB; Start at 19:30 Albuterol/ Ipratropium (Duoneb) 3 ml Q2H PRN NEB SHORTNESS OF BREATH; Start at 19:30 Levothyroxine Sodium (Synthroid) 125 mcg DAILY@06 GTB Last administered on 04/27 05:06; Admin Dose 125 MCG; Start 04/09/17 at 06:00 Multivit/Ca Carb/ B Cmplx/FA/Prenat (Shayla-Anuradha) 1 tab DAILY GTB Last administered on 04/27/17 09:37; Admin Dose 1 TAB; Start 04/09/17 at 09:00 Quetiapine Fumarate (Seroquel) 25 mg BID GTB Last administered on 04/27/17 09: 37; Admin Dose 25 MG; Start 04/08/17 at 21:00 Trazodone HCl (Desyrel) 25 mg QHS PO Last administered on 04/26/17 20:50; Admin Dose 25 MG; Start 04/08/17 at 21:00 Acetaminophen (Tylenol Tab) 650 mg Q4H PRN PO PAIN AND OR ELEVATED TEMP; Start 04/08/17 at 19:30 Morphine Sulfate (morphine) 2 mg Q4H PRN IV PAIN LEVEL 8-10 Last administered on 04/27/17 05:15; Admin Dose 2 MG; Start 04/08/17 at 19:30 Miscellaneous Information 1 ea NOTE XX ; Start 04/08/17 at 20:00 Glucose (Glutose) 15 gm Q15M PRN PO DECREASED GLUCOSE; Start 04/08/17 at 20:00 Glucose (Glutose) 22.5 gm Q15M PRN PO DECREASED GLUCOSE; Start 04/08/17 at 20: 00 Dextrose (D50w Syringe) 25 ml Q15M PRN IV DECREASED GLUCOSE Last administered on 04/23/17 00:46; Admin Dose 25 ML; Start 04/08/17 at 20:00 Dextrose (D50w Syringe) 50 ml Q15M PRN IV DECREASED GLUCOSE Last administered on 04/23/17 05:50; Admin Dose 50 ML; Start 04/08/17 at 20:00 Glucagon (Glucagen) 1 mg Q15M PRN IM DECREASED GLUCOSE; Start 04/08/17 at 20:00 Glucose (Glutose) 15 gm Q15M PRN BUCCAL DECREASED GLUCOSE; Start 04/08/17 at 20 :00 Collagenase (Santyl) 1 applic DAILY TOP Last administered on 04/27/17 09:38; Admin Dose 1 APPLIC; Start 04/09/17 at 14:00 Collagenase (Santyl) 1 applic DAILY PRN TOP WHEN SOILED; Start 04/09/17 at 13: 00 IV Flush (NS 10 ml) 10 ml PRN PRN IV FLUSH LINE; Start 04/10/17 at 16:30 Metoclopramide HCl (Reglan Liq) 5 mg Q8 PO Last administered on 04/27/17 05:06 ; Admin Dose 5 MG; Start 04/12/17 at 08:30 Povidone Iodine (Povidone-Iodine) 1 applic DAILY TOP Last administered on 09:38; Admin Dose 1 APPLIC; Start 04/12/17 at 11:30 Insulin Aspart (Novolog Insulin Pen) NOVOLOG *MODERATE* ALGORI... Q4 SC Last administered on 04/27/17 05:07; Admin Dose 2 UNIT; Start 04/17/17 at 09:00 Acetaminophen (Tylenol Liquid) 650 mg Q6 PRN GTB PAIN AND OR ELEVATED TEMP Last administered on 04/22/17 00:39; Admin Dose 650 MG; Start 04/17/17 at 11:30 Lisinopril (Zestril) 2.5 mg DAILY GTB ; Start 04/23/17 at 09:00 Carvedilol (Coreg) 3.125 mg BID GTB Last administered on 04/26/17 20:50; Admin Dose 3.125 MG; Start 04/22/17 at 21:00 Insulin Detemir (Levemir) 4 unit BID SC Last administered on 04/27/17 09:44; Admin Dose 4 UNIT; Start 04/23/17 at 09:00 HIEU DALY Apr 27, 2017 12:06
[2017-04-27] MEDS ORDERED: ALBUMIN HUMAN 25% 100 ML IV ONE (15:00)
--- NOTE | 2017-04-27 15:16 | CONS ---
Date/Time of Note Date/Time of Note DATE: 04/27/17 TIME: 15:15 Consult Date/Type/Reason Admit Date/Time Apr 08, 2017 at 16:19 Initial Consult Date 04/09/17 Type of Consultation: Pulmonary Ordering Provider: IVAN MALLOY MD Subjective Patient comfortable this morning no new events Objective Vital Signs Date Time Temp Pulse Resp B/P Pulse Ox O2 Delivery O2 Flow Rate FiO2 04/27/17 13:17 89 18 100 30 04/27/17 11:30 98.6 120/61 Intake and Output 04/26/17 04/26/17 04/27/17 15:00 23:00 07:00 Intake Total 540 ml 510 ml 480 ml Output Total 50 ml 50 ml 25 ml Balance 490 ml 460 ml 455 ml Exam PHYSICAL EXAMINATION GENERAL: Elderly lady comfortable at rest on mechanical ventilation VITAL SIGNS: see below. HEENT: Pupils equal, round, and reactive to light. Tracheostomy site clean and intact. CARDIAC: S1, S2, 1/6 systolic ejection murmur CHEST: Diminished air entry bilaterally. ABDOMEN: Mildly distended. Bowel sounds present no guarding or rebound EXTREMITIES: No cyanosis, clubbing edema +1 NEUROLOGIC: Generalized weakness Results/Medications Result Diagram: 04/27/17 0745 04/27/17 0745 Results 24 hrs Laboratory Tests Test 04/26/17 17:30 04/26/17 20:53 04/27/17 02:10 04/27/17 05:05 Bedside Glucose 162 135 132 141 Test 04/27/17 07:45 04/27/17 08:09 04/27/17 12:55 White Blood Count 6.3 Red Blood Count 2.84 L Hemoglobin 8.8 L Hematocrit 27.1 L Mean Corpuscular Volume 95.4 Mean Corpuscular Hemoglobin 31.0 Mean Corpuscular Hemoglobin Concent 32.5 Red Cell Distribution Width 18.6 H Platelet Count 88 L Mean Platelet Volume 11.5 H Neutrophils % 80.5 H Lymphocytes % 10.7 L Monocytes % 7.1 Eosinophils % 0.0 Basophils % 0.0 Nucleated Red Blood Cells % 0.0 Neutrophils # 5.1 Lymphocytes # 0.7 L Monocytes # 0.5 Eosinophils # 0.0 Basophils # 0.0 Nucleated Red Blood Cells # 0.0 Sodium Level 128 L Potassium Level 4.1 Chloride Level 95 L Carbon Dioxide Level 28 Anion Gap 9 Blood Urea Nitrogen 81 H Creatinine 2.84 H Glucose Level 126 Calcium Level 8.0 L Phosphorus Level 4.0 Magnesium Level 2.3 Bedside Glucose 130 176 Medications Current Medications Atorvastatin Calcium (Lipitor) 20 mg QHS GTB Last administered on 04/26/17 20: 50; Admin Dose 20 MG; Start 04/08/17 at 21:00 Acetaminophen/ Hydrocodone Bitart ([place] (5/325)) 1 tab Q6H PRN GTB SEVERE PAIN LEVEL 7-10 Last administered on 04/25/17 08:36; Admin Dose 1 TAB; Start at 19:30 Albuterol/ Ipratropium (Duoneb) 3 ml Q2H PRN NEB SHORTNESS OF BREATH; Start at 19:30 Levothyroxine Sodium (Synthroid) 125 mcg DAILY@06 GTB Last administered on 04/27 05:06; Admin Dose 125 MCG; Start 04/09/17 at 06:00 Multivit/Ca Carb/ B Cmplx/FA/Prenat (Shayla-Anuradha) 1 tab DAILY GTB Last administered on 04/27/17 09:37; Admin Dose 1 TAB; Start 04/09/17 at 09:00 Quetiapine Fumarate (Seroquel) 25 mg BID GTB Last administered on 04/27/17 09: 37; Admin Dose 25 MG; Start 04/08/17 at 21:00 Trazodone HCl (Desyrel) 25 mg QHS PO Last administered on 04/26/17 20:50; Admin Dose 25 MG; Start 04/08/17 at 21:00 Acetaminophen (Tylenol Tab) 650 mg Q4H PRN PO PAIN AND OR ELEVATED TEMP; Start 04/08/17 at 19:30 Morphine Sulfate (morphine) 2 mg Q4H PRN IV PAIN LEVEL 8-10 Last administered on 04/27/17 05:15; Admin Dose 2 MG; Start 04/08/17 at 19:30 Miscellaneous Information 1 ea NOTE XX ; Start 04/08/17 at 20:00 Glucose (Glutose) 15 gm Q15M PRN PO DECREASED GLUCOSE; Start 04/08/17 at 20:00 Glucose (Glutose) 22.5 gm Q15M PRN PO DECREASED GLUCOSE; Start 04/08/17 at 20: 00 Dextrose (D50w Syringe) 25 ml Q15M PRN IV DECREASED GLUCOSE Last administered on 04/23/17 00:46; Admin Dose 25 ML; Start 04/08/17 at 20:00 Dextrose (D50w Syringe) 50 ml Q15M PRN IV DECREASED GLUCOSE Last administered on 04/23/17 05:50; Admin Dose 50 ML; Start 04/08/17 at 20:00 Glucagon (Glucagen) 1 mg Q15M PRN IM DECREASED GLUCOSE; Start 04/08/17 at 20:00 Glucose (Glutose) 15 gm Q15M PRN BUCCAL DECREASED GLUCOSE; Start 04/08/17 at 20 :00 Collagenase (Santyl) 1 applic DAILY TOP Last administered on 04/27/17 09:38; Admin Dose 1 APPLIC; Start 04/09/17 at 14:00 Collagenase (Santyl) 1 applic DAILY PRN TOP WHEN SOILED; Start 04/09/17 at 13: 00 IV Flush (NS 10 ml) 10 ml PRN PRN IV FLUSH LINE; Start 04/10/17 at 16:30 Metoclopramide HCl (Reglan Liq) 5 mg Q8 PO Last administered on 04/27/17 13:03 ; Admin Dose 5 MG; Start 04/12/17 at 08:30 Povidone Iodine (Povidone-Iodine) 1 applic DAILY TOP Last administered on 09:38; Admin Dose 1 APPLIC; Start 04/12/17 at 11:30 Insulin Aspart (Novolog Insulin Pen) NOVOLOG *MODERATE* ALGORI... Q4 SC Last administered on 04/27/17 13:02; Admin Dose 2 UNIT; Start 04/17/17 at 09:00 Acetaminophen (Tylenol Liquid) 650 mg Q6 PRN GTB PAIN AND OR ELEVATED TEMP Last administered on 04/22/17 00:39; Admin Dose 650 MG; Start 04/17/17 at 11:30 Lisinopril (Zestril) 2.5 mg DAILY GTB ; Start 04/23/17 at 09:00 Carvedilol (Coreg) 3.125 mg BID GTB Last administered on 04/26/17 20:50; Admin Dose 3.125 MG; Start 04/22/17 at 21:00 Insulin Detemir 4 unit 4 unit BID SC Last administered on 04/27/17t 09:44; Admin Dose 4 UNIT; Start 04/23/17 at 09:00 Albumin Human (Albumin Human 25%) 100 ml @ 100 mls/hr ONCE ONCE IV ; Start 10/02 at 15:00; Stop 04/27/17 at 15:59 Assessment/Plan Chief Complaint/Hosp Course IMP: 1. Status post septic shock with klebsiella bacteremia 2. VDRF 3. ESRD on HD 4. CHF with tachycardia 5. Encephalopathy resolving 6. Hyponatremia possible SIADH RECS: 1. monitor off vasopressors 2. Continue HD/UF 3. Abx per ID 4. Continue tube feeding as tolerated Consider transfer back to custodial facility. Problems: STEPHANIE BAIRES MD, [facility] Apr 27, 2017 15:15
[2017-04-27] MEDS: ALBUMIN HUMAN 25% 100 ML IV PRN (15:33)
--- NOTE | 2017-04-27 17:52 | CONS ---
Date/Time of Note Date/Time of Note DATE: 04/27/17 TIME: 17:52 Assessment/Plan Assessment/Plan Chief Complaint/Hosp Course - septic shock due to bacteremia (Klebsiella) - resolved - bacteremia due to klebsiella, likely from PNA - complicated UTI due to enterobacter - treated with gent - possible HCAP due to klebsiella and pseudomonas, with moderate pleural effusion - treated with gent - acute toxic metabolic encephalopathy - improving - rectal bleeding at SNF prior to admission, possibly due to radiation proctitis. So far no bleeding after arrival - normocytic anemia - h/o anal CA s/p radiation - diverticulosis without diverticulitis on CT - mild ascites - NSVT - bloody secretion via trach, possible due to CHF - pulm edema and volume overload - ESRD on HD, via permacath on R chest wall. 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 - ventilator dependent resp failure s/p tracheostomy placement - G tube dependent status - diarrhea; C diff negative - resolved - reported allergy to penicillin and sulfa drugs - reactions unknown - s/p meropenem 04/08/17-04/18/17 and gentamicin 04/11/17-04/22/17 recommendations: - panculture for temp >100.4 F - monitor closely off abx - follow-up procalcitonin (04/22/2017 - pending) Problems: Consultation Date/Type/Reason Admit Date/Time Apr 08, 2017 at 16:19 Initial Consult Date 04/09/17 Type of Consultation: id Referring Provider: IVAN MALLOY MD Exam/Review of Systems Vital Signs Vitals Vital Signs Date Time Temp Pulse Resp B/P Pulse Ox O2 Delivery O2 Flow Rate FiO2 04/27/17 17:25 87 04/27/17 17:22 15 99 30 04/27/17 15:17 98.4 104/52 Intake and Output 04/26/17 04/26/17 04/27/17 15:00 23:00 07:00 Intake Total 540 ml 510 ml 480 ml Output Total 50 ml 50 ml 25 ml Balance 490 ml 460 ml 455 ml Exam Constitutional: alert, oriented, well developed Psych: nl mood/affect, no complaints Head: atraumatic, normocephalic Eyes: EOMI, PERRL, nl conjunctiva, nl lids, nl sclera ENMT: nl external ears & nose, nl lips & teeth, nl nasal mucosa & septum Respiratory: clear to auscultation, normal air movement Cardiovascular: nl pulses, regular rate and rhythm Gastrointestinal: nl liver, spleen, non-tender, soft Results Result Diagram: 04/27/17 0745 04/27/17 0745 Results 24 hrs Laboratory Tests Test 04/26/17 20:53 04/27/17 02:10 04/27/17 05:05 04/27/17 07:45 Bedside Glucose 135 132 141 White Blood Count 6.3 Red Blood Count 2.84 L Hemoglobin 8.8 L Hematocrit 27.1 L Mean Corpuscular Volume 95.4 Mean Corpuscular Hemoglobin 31.0 Mean Corpuscular Hemoglobin Concent 32.5 Red Cell Distribution Width 18.6 H Platelet Count 88 L Mean Platelet Volume 11.5 H Neutrophils % 80.5 H Lymphocytes % 10.7 L Monocytes % 7.1 Eosinophils % 0.0 Basophils % 0.0 Nucleated Red Blood Cells % 0.0 Neutrophils # 5.1 Lymphocytes # 0.7 L Monocytes # 0.5 Eosinophils # 0.0 Basophils # 0.0 Nucleated Red Blood Cells # 0.0 Sodium Level 128 L Potassium Level 4.1 Chloride Level 95 L Carbon Dioxide Level 28 Anion Gap 9 Blood Urea Nitrogen 81 H Creatinine 2.84 H Glucose Level 126 Calcium Level 8.0 L Phosphorus Level 4.0 Magnesium Level 2.3 Test 04/27/17 08:09 04/27/17 12:55 Bedside Glucose 130 176 Medications Medications Current Medications Atorvastatin Calcium (Lipitor) 20 mg QHS GTB Last administered on 04/26/17 20: 50; Admin Dose 20 MG; Start 04/08/17 at 21:00 Acetaminophen/ Hydrocodone Bitart ([place] (5/325)) 1 tab Q6H PRN GTB SEVERE PAIN LEVEL 7-10 Last administered on 04/25/17 08:36; Admin Dose 1 TAB; Start at 19:30 Albuterol/ Ipratropium (Duoneb) 3 ml Q2H PRN NEB SHORTNESS OF BREATH; Start at 19:30 Levothyroxine Sodium (Synthroid) 125 mcg DAILY@06 GTB Last administered on 04/27 05:06; Admin Dose 125 MCG; Start 04/09/17 at 06:00 Multivit/Ca Carb/ B Cmplx/FA/Prenat (Shayla-Anuradha) 1 tab DAILY GTB Last administered on 04/27/17 09:37; Admin Dose 1 TAB; Start 04/09/17 at 09:00 Quetiapine Fumarate (Seroquel) 25 mg BID GTB Last administered on 04/27/17 09: 37; Admin Dose 25 MG; Start 04/08/17 at 21:00 Trazodone HCl (Desyrel) 25 mg QHS PO Last administered on 04/26/17 20:50; Admin Dose 25 MG; Start 04/08/17 at 21:00 Acetaminophen (Tylenol Tab) 650 mg Q4H PRN PO PAIN AND OR ELEVATED TEMP; Start 04/08/17 at 19:30 Morphine Sulfate (morphine) 2 mg Q4H PRN IV PAIN LEVEL 8-10 Last administered on 04/27/17 05:15; Admin Dose 2 MG; Start 04/08/17 at 19:30 Miscellaneous Information 1 ea NOTE XX ; Start 04/08/17 at 20:00 Glucose (Glutose) 15 gm Q15M PRN PO DECREASED GLUCOSE; Start 04/08/17 at 20:00 Glucose (Glutose) 22.5 gm Q15M PRN PO DECREASED GLUCOSE; Start 04/08/17 at 20: 00 Dextrose (D50w Syringe) 25 ml Q15M PRN IV DECREASED GLUCOSE Last administered on 04/23/17 00:46; Admin Dose 25 ML; Start 04/08/17 at 20:00 Dextrose (D50w Syringe) 50 ml Q15M PRN IV DECREASED GLUCOSE Last administered on 04/23/17 05:50; Admin Dose 50 ML; Start 04/08/17 at 20:00 Glucagon (Glucagen) 1 mg Q15M PRN IM DECREASED GLUCOSE; Start 04/08/17 at 20:00 Glucose (Glutose) 15 gm Q15M PRN BUCCAL DECREASED GLUCOSE; Start 04/08/17 at 20 :00 Collagenase (Santyl) 1 applic DAILY TOP Last administered on 04/27/17 09:38; Admin Dose 1 APPLIC; Start 04/09/17 at 14:00 Collagenase (Santyl) 1 applic DAILY PRN TOP WHEN SOILED; Start 04/09/17 at 13: 00 IV Flush (NS 10 ml) 10 ml PRN PRN IV FLUSH LINE; Start 04/10/17 at 16:30 Metoclopramide HCl (Reglan Liq) 5 mg Q8 PO Last administered on 04/27/17 13:03 ; Admin Dose 5 MG; Start 04/12/17 at 08:30 Povidone Iodine (Povidone-Iodine) 1 applic DAILY TOP Last administered on 09:38; Admin Dose 1 APPLIC; Start 04/12/17 at 11:30 Insulin Aspart (Novolog Insulin Pen) NOVOLOG *MODERATE* ALGORI... Q4 SC Last administered on 04/27/17 13:02; Admin Dose 2 UNIT; Start 04/17/17 at 09:00 Acetaminophen (Tylenol Liquid) 650 mg Q6 PRN GTB PAIN AND OR ELEVATED TEMP Last administered on 04/22/17 00:39; Admin Dose 650 MG; Start 04/17/17 at 11:30 Lisinopril (Zestril) 2.5 mg DAILY GTB ; Start 04/23/17 at 09:00 Carvedilol (Coreg) 3.125 mg BID GTB Last administered on 04/26/17 20:50; Admin Dose 3.125 MG; Start 04/22/17 at 21:00 Insulin Detemir (Levemir) 4 unit BID SC Last administered on 04/27/17 09:44; Admin Dose 4 UNIT; Start 04/23/17 at 09:00 PATY BOND MD Apr 27, 2017 17:52
[2017-04-27] MEDS: traZODone 50 MG TAB PO SCH (20:58)
[2017-04-27] MEDS: ATORVASTATIN 20 MG TAB GTB SCH (20:58)
== END 2017-04-27 22:26 | DRG 870 ==
LOC: E/R 11:23 → TEL 16:19 → ICU 19:44 → TEL 04-19 18:18
PROVIDERS: ADMIT Internal Medicine; ATTEND Internal Medicine
PROC: 5A1955Z Respiratory Ventilation, Greater than 96 Consecutive Hours (ICD-10-PCS; 2017-04-08)
PROC: 5A1D60Z (ICD-10-PCS; 2017-04-09)
PROC: 02HV33Z Insertion of Infusion Device into Superior Vena Cava, Percutaneous Approach (ICD-10-PCS; principal; 2017-04-10)
PROC: 30233N1 Transfusion of Nonautologous Red Blood Cells into Peripheral Vein, Percutaneous Approach (ICD-10-PCS; 2017-04-10)
PROC: 3C1ZX8Z Irrigation of Indwelling Device using Irrigating Substance, External Approach (ICD-10-PCS; 2017-04-22)
DX: A41.59 Other Gram-negative sepsis (principal); J96.21 Acute and chronic respiratory failure with hypoxia; R65.21 Severe sepsis with septic shock; G92 Toxic encephalopathy; Z99.11 Dependence on respirator [ventilator] status; G93.1 Anoxic brain damage, not elsewhere classified; I47.2 Ventricular tachycardia; J15.0 Pneumonia due to Klebsiella pneumoniae; J15.1 Pneumonia due to Pseudomonas; Z93.0 Tracheostomy status; N18.6 End stage renal disease; I50.20 Unspecified systolic (congestive) heart failure; E87.1 Hypo-osmolality and hyponatremia; K62.5 Hemorrhage of anus and rectum; N39.0 Urinary tract infection, site not specified; R18.8 Other ascites; I42.9 Cardiomyopathy, unspecified; Z43.1 Encounter for attention to gastrostomy; D69.6 Thrombocytopenia, unspecified; E03.9 Hypothyroidism, unspecified; E78.5 Hyperlipidemia, unspecified; D64.9 Anemia, unspecified; E11.22 Type 2 diabetes mellitus with diabetic chronic kidney disease; E87.6 Hypokalemia; E83.9 Disorder of mineral metabolism, unspecified; B96.89 Other specified bacterial agents as the cause of diseases classified elsewhere; I25.10 Atherosclerotic heart disease of native coronary artery without angina pectoris; Z86.74 Personal history of sudden cardiac arrest; D63.8 Anemia in other chronic diseases classified elsewhere; Z93.1 Gastrostomy status; Z88.2 Allergy status to sulfonamides; Z95.1 Presence of aortocoronary bypass graft; Z99.2 Dependence on renal dialysis; Z85.048 Personal history of other malignant neoplasm of rectum, rectosigmoid junction, and anus; Z88.0 Allergy status to penicillin
CPT/HCPCS: 36430; 36569; 36600; 71010; 74000; 74176; 76937; 80048; 80053; 80076; 80170; 80202; 81001; 81003; 82247; 82248; 82803; 82962; 83605; 83735; 83880; 84100; 84145; 84484; 85025; 85610; 85730; 86644; 86850; 86870; 86900; 86901; 86920; 87040; 87070; 87075; 87086; 90935; 93005; 93308; 93970; 93971; 94002; 94003; 96374; J0692; J1580; J1644; J1815; J1956; J2185; J2270; J3370; J3475; J3480; J7040; J7050; J7060; P9016; P9047; Q4081

== ENCOUNTER → 2017-06-09 | Day surgery (SDC) | payer MEDICARE ==
[~2017-06-09] VITALS: Ht 154.9 cm; Wt 76.0 kg
[2017-06-09] VITALS (11 sets, daily range): BP systolic 97–104; BP diastolic 52–65; PULSE 74–89; RESP 14–19; Ht 154.9 cm; Wt 76.0 kg
[~2017-06-09] MED LIST: ASCO500S2 GTB; ATOR20TA38 GTB; BALS60OI TOP; CALC-277 GTB; EPHEDrine SULFATE 50 MG/5 ML SYG IV PRN; FENTAnyl 50 MCG/ML VIAL IV PRN; FURO40TA4 GTB; HYDR-906 GTB; HYDR-906 PEG; INSU100V3 IJ; IPRA3AMP IH; IPRA3AMP INHALATION; LACT20SO2 GTB; LANS30CA GTB; LEVEM SC; LEVO125T71 GTB; LISI2.5T59 GTB; LORA10TA3 GTB; METO-448 GTB; NEPH GTB; PROT946L GTB; QUET25TA26 GTB; SENN-53 PO; SIME80TA53 GTB; SODI1TAB2 GTB; TRAZ50TA18 PO; UDREG GTB; [UNRECOGNIZED DRUG - CODE] TP; [UNRECOGNIZED DRUG - OTHER] PO
--- NOTE | 2017-06-09 20:55 | OPR ---
Date/Time of Note Date/Time of Note DATE: 06/09/17 TIME: 20:52 Operative Report Procedure Date: Jun 09, 2017 Preoperative Diagnosis dysphagia Postoperative Diagnosis dysphagia Operation Performed egd peg Surgeon: LAZ ROMANO MD Anesthesiologist: STEPHANIA BRYANT MD Estimated Blood Loss: none Transfusion Required: no Specimen: none Grafts/Implants: none Complications: no Pt Condition Post Procedure: stable Indications dysphagia Operative\Procedure Findings egd peg Procedure Description peg placed LAZ ROMANO MD Jun 09, 2017 20:54
--- NOTE | 2017-06-10 03:18 | GILP ---
DATE OF PROCEDURE: 06/09/2017 PROCEDURE PERFORMED: 1. Esophagogastroduodenoscopy. 2. Percutaneous endoscopic gastrostomy tube placement. PREOPERATIVE DIAGNOSIS: Patient presenting with history of difficulty in swallowing. She had a G-tube in the past which got dislodged. Now new G-tube needs to be placed. POSTOPERATIVE DIAGNOSIS: Patient presenting with history of difficulty in swallowing. She had a G-tube in the past which got dislodged. Now new G-tube needs to be placed. DESCRIPTION OF PROCEDURE: After the informed written consent was obtained, patient was asked to lie in the supine position. Intravenous anesthesia was given by anesthesiologist, Dr. Brewer. When the patient became somnolent, Olympus video upper endoscope was introduced into the oropharynx, then into the esophagus. The esophagus appeared normal. Stomach appeared normal. Duodenum appeared normal. Old gastrostomy site noted in the anterior wall of the stomach. At this time the anterior abdominal wall was prepared with Betadine and alcohol, and old gastrostomy site was used. The trocar was inserted through the gastrostomy into the stomach. The stylet was removed. The guidewire was inserted through the trocar into the stomach, and the guidewire was grabbed with the polypectomy snare. This was brought out through the mouth along with the endoscope. To this end of the guidewire, a number 20 microvasive G-tube was tied in a loop fashion, and then it was brought through the abdominal wall incision. The tapered end of the gastrostomy tube was cut. The retention bumper was placed over the G-tube close to the skin. The adapter was placed at the tip of the G-tube. The procedure was terminated. PLAN: Recommend start the G-tube feeding in a.m. Dictated By: Jeffrey Schwartz MD /jose m/randy /Document#: [id number] CC: Jeffrey Schwartz MD; Ten Guerrero MD;*EndCC*
== END | disposition home or self-care (01) ==
LOC: SDS 15:17
PROVIDERS: ATTEND Internal Medicine Gastroenterology
DX: R13.10 Dysphagia, unspecified (principal); Z43.1 Encounter for attention to gastrostomy; I11.0 Hypertensive heart disease with heart failure; I50.9 Heart failure, unspecified; E11.9 Type 2 diabetes mellitus without complications; J96.90 Respiratory failure, unspecified, unspecified whether with hypoxia or hypercapnia; I25.10 Atherosclerotic heart disease of native coronary artery without angina pectoris; Z95.1 Presence of aortocoronary bypass graft; E03.9 Hypothyroidism, unspecified; Z88.0 Allergy status to penicillin; Z88.2 Allergy status to sulfonamides
CPT/HCPCS: 94002